=== PATIENT | male | born 1970 | race Caucasian/White ===

== ENCOUNTER 2023-07-28 10:27 | Outpatient (OUT) | payer MEDICARE, MEDICAID, SELFPAY ==
--- NOTE | 2023-07-28 10:59 | XR_ITS ---
The [address] [address] Patient Name: ERIC GUILLORY MRN: [id number] date: 1970 Sex: M Assigned Patient Location: LAB Current Patient Location: LAB Accession/Order Number: [id number] Exam Date: 07/28/2023 11:15 Report Date: 07/28/2023 12:14 At the request of: GIULIA COREY Procedure: XR cervical spine 2-3V EXAMINATION: XR cervical spine 2-3V, XR lumbar spine 2-3V, XR thoracic spine 2V HISTORY: Scoliosis M41.20, Cervical Spondylosis M47.812 COMPARISON: No relevant comparison available. FINDINGS: BONES: Cervical spine demonstrates marked left convex curvature and mild reversal of normal lordotic curvature. Suspect degenerative changes versus osseous bridging of the facet joints at most levels. No appreciable fracture or spondylolisthesis Thoracic spine demonstrates moderate left convex curvature and exaggerated kyphosis. No appreciable fracture or spondylolisthesis. Lumbar spine demonstrates mild curvature at the thoracolumbar junction. Straightening of the normal lordotic curvature, and multilevel marked degenerative facet arthropathy. Bone encroachment on the L4-5 and L5-S1 neural foramen. DISC SPACES: Calcification of the interspinous ligaments throughout. Cervical spine multilevel mild disc space narrowing. Thoracic spine multilevel mild disc space narrowing. Lumbar spine and multilevel mild-moderate disc space narrowing. PARASPINOUS: No paraspinous abnormality is seen. OTHER: Negative. XR/XR cervical spine 2-3V IMPRESSION: 1. Limited examination due to patient needing to be imaged in the standing position. 2. Multilevel scoliotic curvature of the cervical and thoracic spine. 3. Thoracic kyphosis. 4. Findings favor diffuse ankylosing spondylitis throughout the cervical, thoracic, lumbar spine. 5. Multilevel mild degenerative disc disease. 6. Marked degenerative facet arthropathy of lumbar spine. Electronically authenticated by: CEDRICK MAHMOOD Date: 07/28/2023 12:14
--- NOTE | 2023-07-28 10:59 | XR_ITS ---
The [address] [address] Patient Name: ERIC GUILLORY MRN: [id number] date: 1970 Sex: M Assigned Patient Location: LAB Current Patient Location: LAB Accession/Order Number: [id number] Exam Date: 07/28/2023 11:15 Report Date: 07/28/2023 12:14 At the request of: GIULIA COREY Procedure: XR thoracic spine 2V EXAMINATION: XR cervical spine 2-3V, XR lumbar spine 2-3V, XR thoracic spine 2V HISTORY: Scoliosis M41.20, Cervical Spondylosis M47.812 COMPARISON: No relevant comparison available. FINDINGS: BONES: Cervical spine demonstrates marked left convex curvature and mild reversal of normal lordotic curvature. Suspect degenerative changes versus osseous bridging of the facet joints at most levels. No appreciable fracture or spondylolisthesis Thoracic spine demonstrates moderate left convex curvature and exaggerated kyphosis. No appreciable fracture or spondylolisthesis. Lumbar spine demonstrates mild curvature at the thoracolumbar junction. Straightening of the normal lordotic curvature, and multilevel marked degenerative facet arthropathy. Bone encroachment on the L4-5 and L5-S1 neural foramen. DISC SPACES: Calcification of the interspinous ligaments throughout. Cervical spine multilevel mild disc space narrowing. Thoracic spine multilevel mild disc space narrowing. Lumbar spine and multilevel mild-moderate disc space narrowing. PARASPINOUS: No paraspinous abnormality is seen. OTHER: Negative. XR/XR thoracic spine 2V IMPRESSION: 1. Limited examination due to patient needing to be imaged in the standing position. 2. Multilevel scoliotic curvature of the cervical and thoracic spine. 3. Thoracic kyphosis. 4. Findings favor diffuse ankylosing spondylitis throughout the cervical, thoracic, lumbar spine. 5. Multilevel mild degenerative disc disease. 6. Marked degenerative facet arthropathy of lumbar spine. Electronically authenticated by: CEDRICK MAHMOOD Date: 07/28/2023 12:14
--- NOTE | 2023-07-28 10:59 | XR_ITS ---
The [address] [address] Patient Name: ERIC GUILLORY MRN: [id number] date: 1970 Sex: M Assigned Patient Location: LAB Current Patient Location: LAB Accession/Order Number: [id number] Exam Date: 07/28/2023 11:15 Report Date: 07/28/2023 12:14 At the request of: GIULIA COREY Procedure: XR lumbar spine 2-3V EXAMINATION: XR cervical spine 2-3V, XR lumbar spine 2-3V, XR thoracic spine 2V HISTORY: Scoliosis M41.20, Cervical Spondylosis M47.812 COMPARISON: No relevant comparison available. FINDINGS: BONES: Cervical spine demonstrates marked left convex curvature and mild reversal of normal lordotic curvature. Suspect degenerative changes versus osseous bridging of the facet joints at most levels. No appreciable fracture or spondylolisthesis Thoracic spine demonstrates moderate left convex curvature and exaggerated kyphosis. No appreciable fracture or spondylolisthesis. Lumbar spine demonstrates mild curvature at the thoracolumbar junction. Straightening of the normal lordotic curvature, and multilevel marked degenerative facet arthropathy. Bone encroachment on the L4-5 and L5-S1 neural foramen. DISC SPACES: Calcification of the interspinous ligaments throughout. Cervical spine multilevel mild disc space narrowing. Thoracic spine multilevel mild disc space narrowing. Lumbar spine and multilevel mild-moderate disc space narrowing. PARASPINOUS: No paraspinous abnormality is seen. OTHER: Negative. XR/XR lumbar spine 2-3V IMPRESSION: 1. Limited examination due to patient needing to be imaged in the standing position. 2. Multilevel scoliotic curvature of the cervical and thoracic spine. 3. Thoracic kyphosis. 4. Findings favor diffuse ankylosing spondylitis throughout the cervical, thoracic, lumbar spine. 5. Multilevel mild degenerative disc disease. 6. Marked degenerative facet arthropathy of lumbar spine. Electronically authenticated by: CEDRICK MAHMOOD Date: 07/28/2023 12:14
[2023-07-28 11:31] LABS: Estimated Average Glucose 212 mg/dL
== END 2023-07-28 10:28 | disposition home or self-care (01) ==
PROVIDERS: PCP Internal Medicine; Visit Provider Internal Medicine
DX: E11.65 Type 2 diabetes mellitus with hyperglycemia (principal); M41.20 Other idiopathic scoliosis, site unspecified; M47.812 Spondylosis without myelopathy or radiculopathy, cervical region; M47.816 Spondylosis without myelopathy or radiculopathy, lumbar region; M43.9 Deforming dorsopathy, unspecified; M51.36 Other intervertebral disc degeneration, lumbar region; M50.30 Other cervical disc degeneration, unspecified cervical region; M51.34 Other intervertebral disc degeneration, thoracic region
CPT/HCPCS: 36415; 72040; 72070; 72100; 83036

== ENCOUNTER 2023-12-31 17:36 | Emergency (ER) | payer MEDICARE, MEDICAID, SELFPAY ==
[2023-12-31] VITALS (16 sets, daily range): BP systolic 99–139; BP diastolic 71–96; PULSE 85–119; RESP 19–34; TEMP 36.7–37.5; O2SAT 87–97; BMI 43.3
--- NOTE | 2023-12-31 17:40 | XR_ITS ---
The [address] [address] Patient Name: ERIC GUILLORY MRN: [id number] date: 1970 Sex: M Assigned Patient Location: ER Current Patient Location: ER Accession/Order Number: [id number] Exam Date: 12/31/2023 17:58 Report Date: 12/31/2023 18:13 At the request of: SB GIBSON Procedure: XR chest 1V EXAM: XR chest 1V HISTORY: Shortness of breath. COMPARISON: Chest radiograph dated 10/28/2019. TECHNIQUE: 2 AP erect portable views of the chest performed. FINDINGS: The mandible obscures the thoracic inlet. Stable mild prominence/magnification of the cardiomediastinal silhouette. There are low lung volumes. There is no consolidation, infiltrate, pleural effusion or pulmonary vascular congestion. There is no pneumothorax. The bony structures are osteopenic. No acute osseous abnormality is identified. XR/XR chest 1V IMPRESSION: There is no acute cardiopulmonary process. Electronically authenticated by: LUIS FELIPE TAYLOR Date: 12/31/2023 18:13
--- NOTE | 2023-12-31 17:40 | ECG_ITS ---
The [facility] Test Date: 2023-12-31 Pat Name: ERIC GUILLORY Department: Room: - Gender: Male [employer] Operator: : 1970 Requested By: [id number] Order Number: [id number] Reading MD: GIULIA COREY Measurements Intervals [place] Rate: 112 P: 10 NC: 188 QRS: 171 QRSD: 82 T: -30 QT: 296 QTc: 363 Interpretive Statements 1120 Sinus tachycardia 3234 Anteroseptal myocardial infarction, age undetermined 5120 Possible right ventricular hypertrophy 9150 abnormal ECG Electronically Signed On 01-02-2024 7:31:24 EST by GIULIA COREY
[2023-12-31] MEDS: DEXTROSE 50 %-WATER 25 GM/50 ML SYRINGE IV (17:45)
[2023-12-31 17:53] LABS: Glucometer 107 mg/dL (74-106)
[2023-12-31 18:02] LABS: PCO2 VBG 44.7 mmHg (40.0-52.0); pH VBG 7.436 (7.330-7.430)
[2023-12-31 18:03] LABS: Basophils Percent Auto 0.3 % (0.2-2.0); Eosinophils Absolute Auto 0.1 10^3/uL (0.0-0.7); Eosinophils Percent Auto 0.7 % (0.9-7.0); Hematocrit 44.9 % (42.0-54.0); Hemoglobin 13.5 g/dL (14.0-18.0); Immature Granulocytes Abs Auto 0.03 10^3/uL (0.00-0.03); Immature Granulocytes Pct Auto 0.3 % (0.0-0.5); Lymphocytes Absolute Auto 1.4 10^3/uL (1.2-3.8); Lymphocytes Percent Auto 15.2 % (20.5-60.0); Mean Corpuscular HGB Conc 30.1 g/dL (29.9-35.2); Mean Corpuscular Hemoglobin 24.1 pg (25.9-34.0); Mean Corpuscular Volume 80.2 fL (80.0-94.0); Mean Platelet Volume 10.8 fL (9.5-13.5); Monocytes Absolute Auto 1.4 10^3/uL (0.3-0.8); Neutrophils Absolute Auto 6.1 10^3/uL (1.4-6.5); Neutrophils Percent Auto 67.5 % (43.0-75.0); Platelet Count 273 10^3/uL (150-450); Red Cell Distribution Width 15.6 % (11.0-15.0)
--- NOTE | 2023-12-31 18:14 | ED.GENADUL1 ---
HPI - General Adult General Chief complaint: Shortness of Breath/Dyspnea Stated complaint: Shortness of Breath Time Seen by Provider: 12/31/23 17:39 Source: patient Mode of arrival: ambulance History of Present Illness HPI narrative: Patient is a 53-year-old male who is presenting to the ER today with chief complaint of shortness of breath, lower extremity swelling, low blood sugars and not feeling well. Patient lives at home by himself. Patient typically walks around at home with his 2 feet. Patient has very edematous bilateral lower extremities and lower abdominal pannus. Patient takes metformin and glimepiride; patient did take both of those medications this morning. Patient ate 1 piece of pizza for lunch around 1:00. Patient's PCP is Dr. Avery. Dr. Avery manages patient's medications. Patient's oxygen was low when initially arrived, he was placed on 2 L of nasal cannula. Patient states he has no history of congestive heart failure, he has no cardiac history. Patient says he has no heart murmur that he knows of. Patient states his lower extremities have been gaining water fluid in the last 6 to 7 days. He has been feeling weak the last 2 to 3 days. Patient has not been feeling good the last 2 or 3 days, has not been taking medication as recommended, mild nausea. Patient also has not been able to get up and go to the restroom, has been urinating himself secondary to generalized weakness. Patient's brother came over to see him, stated he was not looking good, and called 911 to bring patient in to the ER for evaluation. All systems are negative except as noted/marked. All systems reviewed and otherwise negative. Nurses note and vital signs reviewed and patient is hypoxic at 87%, patient was placed on 2 L nasal cannula. Patient has increased respiratory rate as well, slightly anxious. General: The patient appears well and in no apparent distress. Patient is resting uncomfortably on cart. Patient is not toxic, lethargic, or listless. Patient's blood sugars reading low when he initially arrived, but he is alert and orient x 3, not clammy, not confused, not disoriented, slightly shaky. Skin: Warm, dry, no pallor noted. There is no rash noted. No petechiae, purpura. Head: Normocephalic, atraumatic Eye: Normal conjunctiva, no drainage, EOMI. PERRL Ears, Nose, Mouth, and Throat: oral mucosa is moist. Nares patent. Mouth without vesicles. Cardiovascular: Regular Rate and Rhythm, mild holosystolic murmur, gallop, rub Respiratory: Patient is in no distress, patient has increased respiratory rate; equal breath sounds bilateral, no accessory muscle use, lungs are clear to auscultation, no wheezing, rales or rhonchi, Back: non-tender, no CVA tenderness bilaterally to percussion. No CT LS midline pain GI: Patient is morbidly obese, patient has 2-3+ pitting edema to his lower pannus, no redness, or cellulitis. No tenderness to palpation, no masses appreciated. No rebound, guarding, or rigidity noted. No distention Musculoskeletal: Patient has full range of motion of all of the extremities, no motor, sensory, or focal neurological deficits. Patient has 4+ pitting edema to bilateral lower extremities, patient has mild redness to the anterior lower shins, venous stasis noted. No cellulitis. Patient does have small venous ulcerations forming to the right anterior joe. Neurological: A&O x4, normal speech Psychiatric: Cooperative Related Data Home Medications Medication Instructions Recorded Confirmed fenofibrate micronized 200 mg 200 mg PO DAILY 12/31/23 12/31/23 capsule glimepiride 4 mg tablet 6 mg PO DAILY 12/31/23 12/31/23 ipratropium bromide 42 mcg (0.06 2 spray intranasal TID PRN allergy 12/31/23 12/31/23 %) nasal spray symptoms lisinopril 20 mg tablet 20 mg PO DAILY 12/31/23 12/31/23 metformin 1,000 mg tablet 1,000 mg PO BID 12/31/23 12/31/23 nabumetone 750 mg tablet 750 mg PO BID 12/31/23 12/31/23 tizanidine 2 mg tablet 6 mg PO DAILY 12/31/23 12/31/23 tizanidine 4 mg tablet 6 mg PO DAILY 12/31/23 12/31/23 Allergies Allergy/AdvReac Type Severity Reaction Status Date / Time No Known Drug Allergies Allergy Verified 12/31/23 17:42 Exam Constitutional Vital Signs, click to edit/add: Last Vital Signs Temp 98.0 F 12/31/23 17:42 Pulse 102 H 12/31/23 19:26 Resp 24 12/31/23 19:26 BP 109/89 12/31/23 19:26 Pulse Ox 94 L 12/31/23 19:26 O2 Del Method Nasal Cannula 12/31/23 19:26 O2 Flow Rate 3 12/31/23 18:00 Course Vital Signs Vital signs: Vital Signs Blood Pressure 139/96 H 12/31/23 17:40 Temperature 98.0 F 12/31/23 17:42 Pulse Rate 102 H 12/31/23 19:26 Respiratory Rate 24 12/31/23 19:26 Blood Pressure 109/89 12/31/23 19:26 Pulse Oximetry 94 L 12/31/23 19:26 Oxygen Delivery Method Nasal Cannula 12/31/23 19:26 Oxygen Delivery Flow Rate 3 12/31/23 18:00 Medical Decision Making MDM Narrative Medical decision making narrative: Patient had EKG, IV, lab work done. Patient was given 20 mg of IV Lasix. Patient was started on a D5 drip secondary to hypoglycemia and patient had 2 oral diabetic medications this morning. Patient's blood sugar check approximately 6:50 PM was in the 90s. Patient had 2 orange juices and has been eating dinner as well. Patient's lab work showed a troponin of 79, BNP greater than 2000, patient also has elevated LFTs as well. Patient has no abdominal pain, nausea or vomiting. Patient does have pitting edema to his lower pannus and lower extremities. 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 A 2nd troponin will be ordered at 7:30 PM. 1909 patient has been transition to Dr. Garcia. He will evaluate the rest of patient's lab work, continue to watch patient's blood sugar checks, also a CTA of the chest has been added on as well to rule out PE. Critical care time 31 minutes exclusive from separate billable procedures that were performed. The following was considered in the determination of critical care but not limited to the level of medical decision making, intensive cardiac and/or respiratory monitoring, frequent vital sign monitoring, evaluation of laboratory studies, evaluation of radiographic studies, oxygen monitoring, and constant monitoring and speaking to family at bedside Lab Data Lab results reviewed: Yes I reviewed the patient's lab results Labs: Lab Results 02/23/24 02/23/24 02/23/24 Range/Units 17:51 17:54 18:42 WBC 9.0 (4.0-11.0) 10^3/uL RBC 5.60 (4.70-6.10) 10^6/uL Hgb 13.5 L (14.0-18.0) g/dL Hct 44.9 (42.0-54.0) % MCV 80.2 (80.0-94.0) fL MCH 24.1 L (25.9-34.0) pg MCHC 30.1 (29.9-35.2) g/dL RDW 15.6 H (11.0-15.0) % Plt Count 273 (150-450) 10^3/uL MPV 10.8 (9.5-13.5) fL Neut % (Auto) 67.5 (43.0-75.0) % Lymph % (Auto) 15.2 L (20.5-60.0) % [place] % (Auto) 16.0 H (1.7-12.0) % Eos % (Auto) 0.7 L (0.9-7.0) % Baso % (Auto) 0.3 (0.2-2.0) % Neut # (Auto) 6.1 (1.4-6.5) 10^3/uL Lymph # (Auto) 1.4 (1.2-3.8) 10^3/uL [place] # (Auto) 1.4 H (0.3-0.8) 10^3/uL Eos # (Auto) 0.1 (0.0-0.7) 10^3/uL Baso # (Auto) 0.0 (0.0-0.1) 10^3/uL Abs Immat Gran (auto) 0.03 (0.00-0.03) 10^3/uL Imm/Tot Granulo (auto) 0.3 (0.0-0.5) % PT 17.2 H (9.0-11.6) sec INR 1.67 VBG pH 7.436 H (7.330-7.430) VBG pCO2 44.7 (40.0-52.0) mmHg Sodium 137 (136-145) mmol/L Potassium 3.5 (3.5-5.1) mmol/L Chloride 97 L (98-107) mmol/L Carbon Dioxide 31.0 (21.0-32.0) mmol/L Anion Gap 12.5 BUN 24.0 H (7.0-18.0) mg/dL Creatinine 0.93 (0.70-1.30) mg/dL Est GFR ( Amer) >60 (>=60) Est GFR (Non-Af Amer) >60 (>=60) BUN/Creatinine Ratio 25.8 Glucose 26 L* (74-106) mg/dL Calcium 8.5 (8.5-10.1) mg/dL Total Bilirubin 3.0 H (0.2-1.0) mg/dL AST 271 H (15-37) U/L ALT 283 H (16-63) U/L Alkaline Phosphatase 60 (46-116) U/L Troponin I High Sens 79.4 H* (4.0-76.1) pg/mL NT-Pro-B Natriuret Pep 2203.0 H* (<=900.0) pg/mL Total Protein 8.1 (6.4-8.2) g/dL Albumin 2.8 L (3.4-5.0) g/dL Globulin 5.3 g/dL Albumin/Globulin Ratio 0.5 POC Glucose 107 H 98 (74-106) mg/dL ECG Data Attestation: I personally reviewed and interpreted this ECG as follows: (EKG interpretation. Sinus tachycardia at 112. Normal axis deviation. No acute ST elevation, no acute ectopy. QTc of 363.) Discharge Plan Discharge Patient Disposition: Still a Patient
[2023-12-31 18:16] LABS: INR 1.67; Prothrombin Time 17.2 sec (9.0-11.6)
[2023-12-31] MEDS: DEXTROSE 5%-0.9% NACL 1,000 ML 1,000 ML 50 ML IV (18:22)
[2023-12-31] MEDS: FUROSEMIDE 20 MG/2 ML VIAL IVP (18:23)
[2023-12-31 18:25] LABS: Alanine Aminotransferase 283 U/L (16-63); Albumin Globulin Ratio 0.5; Albumin Level 2.8 g/dL (3.4-5.0); Alkaline Phosphatase 60 U/L (46-116); Anion Gap 12.5; Aspartate Amino Transferase 271 U/L (15-37); BUN Creatinine Ratio 25.8; Calcium 8.5 mg/dL (8.5-10.1); Chloride 97 mmol/L (98-107); Estimated GFR (African America >60 (>=60); Estimated GFR (Non-African Ame >60 (>=60); Globulin 5.3 g/dL; Potassium 3.5 mmol/L (3.5-5.1); Sodium 137 mmol/L (136-145); Total Protein 8.1 g/dL (6.4-8.2)
[2023-12-31 18:39] LABS: Troponin I High Sensitivity 79.4 pg/mL (4.0-76.1)
[2023-12-31 18:40] LABS: Glucose 26 mg/dL (74-106)
[2023-12-31 18:44] LABS: Glucometer 98 mg/dL (74-106)
--- NOTE | 2023-12-31 19:02 | PC.NURSE ---
pt arrived to er per ems from home for shortness of breath. pt O2 SAT 87% on RA. O2 initiated at 3L per NC Sat up to 94%
--- NOTE | 2023-12-31 19:07 | CT_ITS ---
The [address] [address] Patient Name: ERIC GUILLORY MRN: [id number] date: 1970 Sex: M Assigned Patient Location: ER Current Patient Location: Accession/Order Number: [id number] Exam Date: 12/31/2023 09:45 Report Date: 12/31/2023 20:49 At the request of: SB GIBSON Procedure: CT angio chest CTA OF THE CHEST WITH CONTRAST: 12/31/2023 9:45 AM EST HISTORY: TECHNIQUE: Initially, thin section noncontrast images through portions of the chest were obtained for the purpose of establishing proper bolus timing of contrast. Subsequently, thin section axial CT images were obtained through the chest after intravenous administration of Omnipaque 350, 100 mL IV. To optimally assess the thoracic vasculature, the original axial data was used to create 3D volume rendered, multiplanar reformatted and/or maximum intensity projection images in various planes. This CT exam was performed using one or more of the following dose reduction techniques: Automated exposure control, adjustment of the mA and/or kV according to patient size, or use of iterative reconstruction technique. Thin section coronal and sagittal images were reconstructed from the axial data set. All images were reviewed and interpreted. COMPARISON: None. FINDINGS: Bolus opacification of the pulmonary arteries was adequate for purposes of diagnosis. There is extensive acute bilateral PTE. More extensive on the right with acute thromboembolism beginning in the distal right pulmonary outflow tract with contiguous extension throughout right middle lobe segmental and subsegmental branches of the medial segment and lateral segment and throughout the right upper lobe anterior and apical segmental and subsegmental branches as well as involving right lower lobe with appears to be extensive occlusive thrombus in multiple segmental and subsegmental right lower lobe branches. There is acute PE within the distal left pulmonary artery outflow tract at branch point of the lingula and extending to the left upper lobe involving segmental and central branches. There is some acute segmental and subsegmental PE throughout multiple left basilar lung segments. No central or saddle embolus. There does appear to be a component of acute right heart strain with marked enlargement of the right ventricle relative to left. Ratio is at least 1.6. Patient may be candidate for thrombectomy. Mild enlargement of cardiac chambers particularly on the right. No pericardial effusion. There is some mild vascular congestion. Small dependent bilateral pleural effusions atelectasis. Lungs otherwise clear and expanded without mass or infiltrate or. No pneumothorax. Normal caliber thoracic aorta and normal appearance. There are aortic arch pattern is normal. No hilar or mediastinal lymphadenopathy. There is some trace ascites in the upper abdomen around liver and spleen. There is backwash of contrast in the intrahepatic IVC consistent with acute right heart strain. No osseous abnormality. CT/CT angio chest IMPRESSION: Extensive bilateral acute thromboembolism is present. More extensive on the right. This involves multiple right central as well as segmental and subsegmental branches throughout right upper lobe, right middle lobe and right lower lobe and involving left lung is well including lingula, left upper lobe and left lower lobe branches. Associated findings of acute right heart strain as discussed above. Patient may be candidate for thrombectomy. Critical value was reported to Physician: Adolfo Garcia by Dr. Balbir Bashir on 12/31/2023 8:47 PM EST. Electronically authenticated by: BALBIR BASHIR Date: 12/31/2023 20:49
[2023-12-31 19:53] LABS: Troponin I High Sensitivity 74.7 pg/mL (4.0-76.1)
[2023-12-31 20:38] LABS: Glucometer 107 mg/dL (74-106)
[2023-12-31 21:19] LABS: Partial Thromboplastin Time 33.3 sec (22.3-36.2)
[2023-12-31] MEDS: HEPARIN SODIUM (PORCINE) 5,000 UNIT/ML VIAL 6700 UNIT IV (21:48)
[2023-12-31] MEDS: HEPARIN SODIUM,PORCINE/D5W 25,000 UNIT/500 ML IV.SOLN 30.24 UNIT IV (21:49)
== END 2023-12-31 23:00 | disposition short-term general hospital (02) ==
PROVIDERS: Emergency Medicine; Emergency Provider Emergency Medicine; PCP Internal Medicine
DX: I26.99 Other pulmonary embolism without acute cor pulmonale (principal); I51.89 Other ill-defined heart diseases; R09.02 Hypoxemia; E16.2 Hypoglycemia, unspecified; R79.89 Other specified abnormal findings of blood chemistry; Z79.84 Long term (current) use of oral hypoglycemic drugs; R53.1 Weakness; E66.01 Morbid (severe) obesity due to excess calories; R60.0 Localized edema; Z68.41 Body mass index [BMI] 40.0-44.9, adult
CPT/HCPCS: 36415; 51702; 71045; 71275; 80053; 82800; 82948; 83880; 84484; 85025; 85610; 85730; 93005; 96374; 96375; 99285; J1644; J1940; Q9967

== ENCOUNTER 2024-03-15 19:44 | Outpatient (OUT) | payer MEDICARE, MEDICAID, SELFPAY ==
--- OUTSIDE RECORDS SUMMARY | 2024-03-15 19:49 | XMS_ITS | CCD ---
Author Organization [facility] Care Team Providers Care Cook Morning Name Role Phone Semaj Avery Unavailable BENNIE, DR PLATT Primary Care Unavailable BALL, DR PLATT Consulting Unavailable BALL, DR PLATT Attending Unavailable BALL, DR PLATT Admitting Unavailable BALL, DR PLATT Consulting Unavailable BENNIE, DR PLATT Attending Unavailable BENNIE, DR PLATT Admitting Unavailable BENNIE, DR PLATT Primary Care Unavailable Martinez, Edi Attending Unavailable Martinez, Edi Admitting Unavailable Bennie, Semaj Primary Care Unavailable BENNIE, SEMAJ Primary Care Unavailable TETE GUIDO Attending Unavailable JANNET NUNN Admitting Unavailable DELGADO GUIDO Consulting Unavailabl JANNET Edge Consulting Unavailable NURASHAHRIAR S Consulting Unavailable DELGADO GUIDO Attending Unavailabl e DELGADO GUIDO Referring UnavailSEMAJ Richards Primary Care Unavailable RODRICK THOMAS Attending Unavailable RODRICK THOMAS Attending Unavailable Medications Current Medications Medication Drug Class(es) Dates Sig (Normalized) Sig (Original) fenofibrate 200 mg oral capsule (8 sources) Peroxisome Proliferator Receptor alpha Agonist Start: 02-04-2023 take 1 capsule by mouth once daily Fenofibrate 200 MG 1 capsule Orally Once a day w/ food for 30 days Jan, Active glimepiride 4 mg oral tablet (10 sources) Sulfonylurea Glimepiride 4 MG 1 1/2 tab taken 30 minutes prior to first meal Orally Once a day Active Glimepiride 4 MG 1 tablet Orally Once a day, taken 30 minutes prior to bkfst for 30 days Active take 1 tablet by angelika th every twenty-four hours Glimepiride 2 MG 1 tablet with breakfast or the first main meal of the day Orally Once a day Active ipratropium bromide 0.042 mg/actuat metered dose nasal spray (10 sources) Anticholinergic Ipratropium Brom shantel 0.06 % USE 2 SPRAYS IN EACH NOSTRIL 2-3 TIMES A DAY NEEDED for 90 Active Ipratropium Brom shantel 0.06 % USE 2 SPRAYS IN EACH NOSTRIL 2-3 TIMES A DAY NEEDED for 90 Active take 2 spray(s) nasa l route three times daily as needed Ipratropium [place] 0.06 % 2 sprays in e ach nostril Nasally Three times a day as needed Active lisinopril 20 mg oral tablet (10 sources) Angiotensin Converting Enzyme Inhibitor Lisinopril 20 MG PRIMO E 1 TABLET BY MOUTH EVERY DAY Orally Once a day for 30 days Active take 1 tablet by mouth once [place] Lisinopril 10 MG TAKE 1 TABLET BY MOUTH EVERY DAY Active metFORMIN hydrochloride 1000 mg oral tablet (10 sources) Biguanide metFORMIN HCl 10 00 MG TAKE 1 TABLET BEFORE BREAKFAST AND EVENING MEAL Active nabumetone 750 mg oral tablet (1 source) Nonsteroidal Anti-inflammatory Drug take 1 tablet by mouth every twelve hours Nabumetone 750 MG 1 tablet Orally Twice a day Active OneTouch Verio - (10 sources) OneTouch Verio - USE TO TEST HOME BLOOD SUGAR ONCE DAILY In Vitro qd for 30 days Active OneTouch Verio - USE TO TEST HOME BLOOD SUGAR ONCE DAILY for 30 Active tiZANidine 4 mg oral tablet (10 sources) Central alpha-2 Adrenergic Agonist Start: 11-09-2023 tiZANidine HCl 4 MG 1 1/2 tablet Orally q HS for 30 days Nov, Active take 1 capsule by [facility] once at bedtime as needed tiZANidine HCl 6 MG 1 capsule as needed Orally q HS for 90 days Active traMADol hydrochloride 50 mg oral tablet (1 source) Opioid Agonist take 1 tablet by mouth twice daily as needed traMADol HCl 50 MG 1 tablet as needed Orally twice daily Active Completed/Discontinued Medications Medication Drug Class(es) Dates Sig (Normalized) Sig (Original) polyethylene glycol 3350 13364 mg powder for oral solution (9 sources) Osmotic Laxative Polyethylene Gl ycol 3350 17 GM/SCOOP USE DIRECTED TWICE A DAY for 30 Not-Taking/PRN Polyethylene Glycol 3350 17 GM/SCOOP (1 source) Polyethylene Gly col 3350 17 GM/SCOOP USE DIRECTED TWICE A DAY for 30 Not-Taking Problems Problem Classification Problem Date Documented Da te Episodic/Chronic Diabetes mellitus with complications (20 sources) Type 2 diabetes mellitus; Translations: [Type 2 diabetes mellitus with hyperglycemia] Onset: 02-03-2023 Chronic Disorders of lipid metabolism (20 sources) Hypercholesterolemia ; Translations: [Pure hypercholesterolemia , unspecified] Onset: 02-05-2023 Chronic Essential hypertension (14 sources) Essential hypertension; Translations: [Essential (primary) hypertension] Onset: 02-05-2023 Chronic Other aftercare (3 sources) Other skilled nursing (current) drug therapy; Translations: [OTH [facility] CURRENT DRUG THERAPY] Onset: 02-05-2023 Episodic Other and ill-defined heart disease (1 source) Cardiomegaly; Translations: [Cardiomegaly] Onset: 01-01-2024 Chronic Other bone disease and musculoskeletal deformities (10 sources) Idiopathic kyphoscoliosis; Translations: [Other idiopathic scoliosis, site unspecified] Chronic Other bone disease and musculoskeletal deformities (3 sources) Other idiopathic scoliosis, site unspecified Chronic Other connective tissue disease (3 sources) Other muscle spasm Episodic Other screening for suspected conditions (not mental disorders or infectious disease) (3 sources) Encounter for screening for malignant neoplasm of prostate; Translations: [ENC SCREEN MALIG NEOPLASM PROSTATE] Onset: 02-05-2023 Episodic Pulmonary heart disease (1 source) Other pulmonary embolism with acute cor pulmonale; Translations: [Other pulmonary embolism with acute cor pulmonale] Onset: 01-04-2024 Chronic Pulmonary heart disease (1 source) Other pulmonary embolism without acute cor pulmonale; Translations: [Other pulmonary embolism without acute cor pulmonale] Onset: 01-01-2024 Episodic Rheumatoid arthritis and related disease (9 sources) Ankylosing spondylitis; Translations: [Ankylosing spondylitis of thoracolumbar region] Chronic Spondylosis; intervertebral disc disorders; other back problems (20 sources) Cervical spondylosis; Translations: [Spondylosis without myelopathy or radiculopathy, cervical region] Chronic Unclassified (1 source) Low back pain, unspecified; Translations: [Low back pain, unspecified] Onset: 08-09-2023 Results Test Name Value Interpretation Reference Range Facility Basic Metab w/rfx MGon Anion gap [Moles/Vol] 8 mmol/L Low 9-17 [facility] Comment on above: Performed By: #### B MPX, CDP ####[address] [address] Lab Director: Rafa Prieto MD Calcium [Mass/Vol] 7.9 mg/dL Low 8.6-10.4 [facility] Comment on above: Performed By: #### B MPX, CDP ####[address] [phone] Director: Rafa Prieto MD Chloride [Moles/Vol] 97 mmol/L Low 98-107 [facility] Comment on above: Performed By: #### B MPX, CDP ####[address] [phone] Director: Rafa Prieto MD CO2 [Moles/Vol] 25 mmol/L Normal 20-31 [facility] Comment on above: Performed By: #### B MPX, CDP ####[address] [phone] Director: Rafa Prieto MD Creatinine [Mass/Vol] 0.6 mg/dL Low 0.7-1.2 [facility] Comment on above: Performed By: #### B MPX, CDP ####[address] [phone] Director: Rafa Prieto MD GFR/1.73 sq M.predicted among non-blacks MDRD (S/P/Bld) [Vol rate/Area] mL/min/{1.73_m2} Normal >60 [facility] Comment on above: Result Comment: These results are not intended for use in patients <18 years of age. eGFR results are calculated without a race factor using the 2020 CKD-EPI equation. Careful clinical correlation is recommended, particularly when comparing to results calculated using previous equations. The CKD-EPI equation is less accurate in patients with extremes of muscle mass, extra-renal metabolism of creatine, excessive creatine ingestion, or following therapy that affects renal tubular secretion. Performed By: #### B MPX, CDP ####[address], [place] [phone] Director: Rafa Prieto MD Glucose [Mass/Vol] 122 mg/dL High 70-99 [facility] Comment on above: Performed By: #### B MPX, CDP ####[facility] [address] [place], [place] [phone] Director: Rafa Prieto MD Potassium [Moles/Vol] 3.9 mmol/L Normal 3.7-5.3 [facility] Comment on above: Performed By: #### B MPX, CDP ####[facility] [address] [place], [place] [address])[phone] Director: Rafa Prieto MD Sodium [Moles/Vol] 130 mmol/L Low 135-144 [facility] Comment on above: Performed By: #### B MPX, CDP ####[facility] [address] [place] [address])[phone] Director: Rafa Prieto MD Urea nitrogen [Mass/Vol] 10 mg/dL Normal 6-20 [facility] Comment on above: Performed By: #### B MPX, CDP ####[facility] [address] [place] [address] [phone] Director: Rafa Prieto MD CBC with Diffon 01-06-2024 Abs. Basophil 0.04 k/uL Normal 0.00-0.20 [facility] Comment on above: Performed By: #### H EPXA, PTT #### [facility] [address] [place] [address] Switchboard Wirer: Rafa Prieto MD Abs.Imm.Granulocyte 0.03 k/uL Normal 0.00-0.30 [facility] Comment on above: Performed By: #### H EPXA, PTT #### [facility] [employer] [address] [place] [address] Switchboard Wirer: Rafa Prieto MD Abs.Neutrophil (Seg) 5.00 k/uL Normal 1.50-8.10 [facility] Comment on above: Performed By: #### H EPXA, PTT #### [facility] [employer] [address] [place] [address] [employer] Wirer: Rafa Prieto MD Basophils/100 WBC (Bld) 1 % Normal 0-2 [facility] Comment on above: Performed By: #### H EPXA, PTT #### [facility] [employer] [address] [place] [address] [employer] Wirer: Rafa Prieto MD Eosinophils (Bld) [#/Vol] 0.38 10*3/uL Normal 0.00-0.44 [facility] Comment on above: Performed By: #### H EPXA, PTT #### [address] [address] Switchboard Wirer: Rafa Prieto MD Eosinophils/100 WBC (Bld) 5 % High 1-4 [facility] Comment on above: Performed By: #### H EPXA, PTT #### [facility] [employer] [address] [place] [address] [employer] Wirer: Rafa Prieto MD Erythrocyte distribution width (RBC) [Ratio] 16.5 % High 11.8-14.4 [facility] Comment on above: Performed By: #### H EPXA, PTT #### [facility] [employer] [address] [place] [address] [employer] Wirer: Rafa Prieto MD Hematocrit (Bld) [Volume fraction] 37.0 % Low 40.7-50.3 [facility] Comment on above: Performed By: #### H EPXA, PTT #### [facility] [employer] [address] [place] [address] [employer]r: Rafa Prieto MD Hemoglobin (Bld) [Mass/Vol] 10.7 g/dL Low 13.0-17.0 [facility] Comment on above: Performed By: #### H EPXA, PTT #### [address] [address] Switchboard Wirer: Rafa Prieto MD Immature granulocytes/100 WBC (Bld) 0 % Normal 0 [facility] Comment on above: Performed By: #### H EPXA, PTT #### [address] [address] [employer]r: Rafa Prieto MD Lymphocytes (Bld) [#/Vol] 1.55 10*3/uL Normal 1.10-3.70 [facility] Comment on above: Performed By: #### H EPXA, PTT #### [facility] [employer] [address] [place] [address] [employer]r: Rafa Prieto MD Lymphocytes/100 WBC (Bld) 19 % Low 24-43 [facility] Comment on above: Performed By: #### H EPXA, PTT #### [address] [address] Switchboard Wirer: Rafa Prieto MD MCH (RBC) [Entitic mass] 24.0 pg Low 25.2-33.5 [facility] Comment on above: Performed By: #### H EPXA, PTT #### [facility] [employer] [address] [place] [address] Switchboard Wirer: Rafa Prieto MD MCHC (RBC) [Mass/Vol] 28.9 g/dL Normal 28.4-34.8 [facility] Comment on above: Performed By: #### H EPXA, PTT #### [facility] [employer] [address] [place] [address] [employer]board Wirer: Rafa Prieto MD MCV (RBC) [Entitic vol] 83.0 fL Normal 82.6-102.9 [facility] Comment on above: Performed By: #### H EPXA, PTT #### [address] [address] [employer]board Wirer: Rafa Prieto MD Monocytes (Bld) [#/Vol] 0.99 10*3/uL Normal 0.10-1.20 [facility] Comment on above: Performed By: #### H EPXA, PTT #### [address] [address] Switchboard Wirer: Rafa Prieto MD Monocytes/100 WBC (Bld) 12 % Normal 3-12 [facility] Comment on above: Performed By: #### H EPXA, PTT #### [address] [address] [employer]r: Rafa Prieto MD Neutrophil (Seg) 63 % Normal 36-65 [facility] Comment on above: Performed By: #### H EPXA, PTT #### [address] [address] [employer]board Wirer: Rafa Prieto MD NRBC Automated 0.0 per 100 WBC Normal 0.0 [facility] Comment on above: Performed By: #### H EPXA, PTT #### [address] [address] [employer]board Wirer: Rafa Prieto MD Platelet mean volume (Bld) [Entitic vol] 10.8 fL Normal 8.1-13.5 [facility] Comment on above: Performed By: #### H EPXA, PTT #### [address] [address] [employer]r: Rafa Prieto MD Platelets (Bld) [#/Vol] 204 10*3/uL Normal 138-453 [facility] Comment on above: Performed By: #### H EPXA, PTT #### [address] [address] [employer]board [employer]r: Rafa Prieto MD RBC (Bld) [#/Vol] 4.46 10*6/uL Normal 4.21-5.77 [facility] Comment on above: Performed By: #### H EPXA, PTT #### [facility] [place] [address] Switchboard Wirer: Rafa Prieto MD RBC morphology finding Nom (Bld) ANISOCYTOSIS PRESENT Normal [facility] Comment on above: Performed By: #### H EPXA, PTT #### [facility] [place] [address] Switchboard Wirer: Rafa Prieto MD WBC (Bld) [#/Vol] 8.0 10*3/uL Normal 3.5-11.3 [facility] Comment on above: Performed By: #### H EPXA, PTT #### [facility] [employer] [address] [place] [address] Switchboard Wirer: Rafa Prieto MD Cult,Urineon 01-06-2024 Cult,Urine Specimen Description .CLEAN CATCH URINE Culture NO GROWTH Report Status FINAL 01/06/2024 Normal [facility] Comment on above: Performed By: #### U RC #### [address] [address] Switchboard Wirer: Rafa Prieto MD Glucose,Whole Bloodon 2023 Glucose [Mass/Vol] 174 mg/dL High 75-110 [facility] Glucose [Mass/Vol] 192 mg/dL High 75-110 [facility] Glucose [Mass/Vol] 119 mg/dL High 75-110 [facility] Heparin Anti-Xaon 01-06-2024 Heparin Anti-Xa 0.41 IU/L Normal [facility] Comment on above: Performed By: #### H EPXA ####[facility] [address] [place] [address] Lab Director: Rafa Prieto MD Basic Metab w/rfx MGon 01-05 Anion gap [Moles/Vol] 11 mmol/L Normal 9-17 [facility] Comment on above: Performed By: #### U RC #### [address] [address] Switchboard Wirer: Rafa Prieto MD Calcium [Mass/Vol] 7.9 mg/dL Low 8.6-10.4 [facility] Comment on above: Performed By: #### U RC #### [address] [address] Switchboard Wirer: Rafa Prieto MD Chloride [Moles/Vol] 99 mmol/L Normal 98-107 [facility] Comment on above: Performed By: #### U RC #### [address] [address] Switchboard Wirer: Rafa Prieto MD CO2 [Moles/Vol] 24 mmol/L Normal 20-31 [facility] Comment on above: Performed By: #### U RC #### [address] [address] Switchboard Wirer: Rafa Prieto MD Creatinine [Mass/Vol] 0.6 mg/dL Low 0.7-1.2 [facility] Comment on above: Performed By: #### U RC #### [address] [address] Switchboard Wirer: Rafa Prieto MD GFR/1.73 sq M.predicted among non-blacks MDRD (S/P/Bld) [Vol rate/Area] mL/min/{1.73_m2} Normal >60 [facility] Comment on above: Result Comment: These results are not intended for use in patients <18 years of age. eGFR results are calculated without a race factor using the 2020 CKD-EPI equation. Careful clinical correlation is recommended, particularly when comparing to results calculated using previous equations. The CKD-EPI equation is less accurate in patients with extremes of muscle mass, extra-renal metabolism of creatine, excessive creatine ingestion, or following therapy that affects renal tubular secretion. Performed By: #### U RC #### [address] [address] Switchboard Wirer: Rafa Prieto MD Glucose [Mass/Vol] 97 mg/dL Normal 70-99 [facility] Comment on above: Performed By: #### U RC #### [address] [address] Switchboard Wirer: Rafa Prieto MD Potassium [Moles/Vol] 4.3 mmol/L Normal 3.7-5.3 [facility] Comment on above: Performed By: #### U RC #### [address] [address] Switchboard Wirer: Rafa Prieto MD Sodium [Moles/Vol] 134 mmol/L Low 135-144 [facility] Comment on above: Performed By: #### U RC #### [address] [address] Switchboard Wirer: Rafa Prieto MD Urea nitrogen [Mass/Vol] 10 mg/dL Normal 6-20 [facility] Comment on above: Performed By: #### U RC #### [address] [address] Switchboard Wirer: Rafa Prieto MD CBC with Diffon 01-05-2024 Abs. Basophil 0.00 k/uL Normal 0.0-0.2 [facility] Comment on above: Performed By: #### U RC #### [address] [address] Switchboard Wirer: Rafa Prieto MD Abs.Imm.Granulocyte 0.00 k/uL Normal 0.00-0.30 [facility] Comment on above: Performed By: #### U RC #### [address] [address] Switchboard Wirer: Rafa Prieto MD Abs.Neutrophil (Seg) 4.99 k/uL Normal 1.8-7.7 [facility] Comment on above: Performed By: #### U RC #### [address] [address] Switchboard Wirer: Rafa Prieto MD Basophils/100 WBC (Bld) 0 % Normal 0-2 [facility] Comment on above: Performed By: #### U RC #### [address] [address] Switchboard Wirer: Rafa Prieto MD Eosinophils (Bld) [#/Vol] 0.39 10*3/uL Normal 0.0-0.4 [facility] Comment on above: Performed By: #### U RC #### [address] [address] Switchboard Wirer: Rafa Prieto MD Eosinophils/100 WBC (Bld) 5 % High 1-4 [facility] Comment on above: Performed By: #### U RC #### [address] [address] Switchboard Wirer: Rafa Prieto MD Immature granulocytes/100 WBC (Bld) 0 % Normal 0 [facility] Comment on above: Performed By: #### U RC #### [address] [address] Switchboard Wirer: Rafa Prieto MD Lymphocytes (Bld) [#/Vol] 1.48 10*3/uL Normal 1.0-4.8 [facility] Comment on above: Performed By: #### U RC #### [address] [address] Switchboard Wirer: Rafa Prieto MD Lymphocytes/100 WBC (Bld) 19 % Low 24-44 [facility] Comment on above: Performed By: #### U RC #### [address] [address] Switchboard Wirer: Rafa Prieto MD Monocytes (Bld) [#/Vol] 0.94 10*3/uL High 0.1-0.8 [facility] Comment on above: Performed By: #### U RC #### [address] [address] Switchboard Wirer: Rafa Prieto MD Monocytes/100 WBC (Bld) 12 % High 1-7 [facility] Comment on above: Performed By: #### U RC #### [address] [address] Switchboard Wirer: Rafa Prieto MD Morphology [place] (Bld) [Interp] ANISOCYTOSIS PRESENT Normal [facility] Comment on above: Performed By: #### U RC #### [address] [address] Switchboard Wirer: Rafa Prieto MD Neutrophil (Seg) 64 % Normal 36-66 [facility] Comment on above: Performed By: #### U RC #### [address] [address] Switchboard Wirer: Rafa Prieto MD Erythrocyte distribution width (RBC) [Ratio] 16.6 % High 11.8-14.4 [facility] Comment on above: Performed By: #### U RC #### [address] [address] Switchboard Wirer: Rafa Prieto MD Hematocrit (Bld) [Volume fraction] 38.6 % Low 40.7-50.3 [facility] Comment on above: Performed By: #### U RC #### [address] [address] Switchboard Wirer: Rafa Prieto MD Hemoglobin (Bld) [Mass/Vol] 10.9 g/dL Low 13.0-17.0 [facility] Comment on above: Performed By: #### U RC #### [address] [address] Switchboard Wirer: Rafa Prieto MD MCH (RBC) [Entitic mass] 24.0 pg Low 25.2-33.5 [facility] Comment on above: Performed By: #### U RC #### [address] [address] Switchboard Wirer: Rafa Prieto MD MCHC (RBC) [Mass/Vol] 28.2 g/dL Low 28.4-34.8 [facility] Comment on above: Result Comment: TEST CONFIRMED Performed By: #### U RC #### [place] [address] Switchboard Wirer: Rafa Prieto MD MCV (RBC) [Entitic vol] 85.0 fL Normal 82.6-102.9 [facility] Comment on above: Performed By: #### U RC #### [address] [address] Switchboard Wirer: Rafa Prieto MD NRBC Automated 0.0 per 100 WBC Normal 0.0 [facility] Comment on above: Performed By: #### U RC #### [place] [address] Switchboard Wirer: Rafa Prieto MD Platelet mean volume (Bld) [Entitic vol] 11.9 fL Normal 8.1-13.5 [facility] Comment on above: Performed By: #### U RC #### [address] [address] Switchboard Wirer: Rafa Prieto MD Platelets (Bld) [#/Vol] 192 10*3/uL Normal 138-453 [facility] Comment on above: Performed By: #### U RC #### [place] [address] [place] [address] Switchboard Wirer: Rafa Prieto MD RBC (Bld) [#/Vol] 4.54 10*6/uL Normal 4.21-5.77 [facility] Comment on above: Performed By: #### U RC #### [address] [address] Switchboard Wirer: Rafa Prieto MD WBC (Bld) [#/Vol] 7.8 10*3/uL Normal 3.5-11.3 [facility] Comment on above: Performed By: #### U RC #### [address] [address] Switchboard Wirer: Rafa Prieto MD Glucose,Whole Bloodon 2023 Glucose [Mass/Vol] 147 mg/dL High 75-110 [facility] Glucose [Mass/Vol] 178 mg/dL High 75-110 [facility] Glucose [Mass/Vol] 158 mg/dL High 75-110 [facility] Glucose [Mass/Vol] 106 mg/dL Normal -110 [facility] Heparin Anti-Xaon 01-05-2024 Heparin Anti-Xa 0.41 IU/L Normal [facility] Comment on above: Performed By: #### U RC #### [address] [address] Switchboard Wirer: Rafa Prieto MD Basic Metab w/rfx MGon 01-04 Anion gap [Moles/Vol] 8 mmol/L Low 9-17 [facility] Comment on above: Performed By: #### H EPXA, PTT #### [address] [address] Switchboard Wirer: Rafa Prieto MD Calcium [Mass/Vol] 7.7 mg/dL Low 8.6-10.4 [facility] Comment on above: Performed By: #### H EPXA, PTT #### [facility] [address] [place] [address] Switchboard Wirer: Rafa Prieto MD Chloride [Moles/Vol] 98 mmol/L Normal 98-107 [facility] Comment on above: Performed By: #### H EPXA, PTT #### [facility] [address] [place] [address] Switchboard Wirer: Rafa Prieto MD CO2 [Moles/Vol] 26 mmol/L Normal 20-31 [facility] Comment on above: Performed By: #### H EPXA, PTT #### [facility] [address] [place] [address] Switchboard Wirer: Rafa Prieto MD Creatinine [Mass/Vol] 0.6 mg/dL Low 0.7-1.2 [facility] Comment on above: Performed By: #### H EPXA, PTT #### [address] [address] Switchboard Wirer: Rafa Prieto MD GFR/1.73 sq M.predicted among non-blacks MDRD (S/P/Bld) [Vol rate/Area] mL/min/{1.73_m2} Normal >60 [facility] Comment on above: Result Comment: These results are not intended for use in patients <18 years of age. eGFR results are calculated without a race factor using the 2020 CKD-EPI equation. Careful clinical correlation is recommended, particularly when comparing to results calculated using previous equations. The CKD-EPI equation is less accurate in patients with extremes of muscle mass, extra-renal metabolism of creatine, excessive creatine ingestion, or following therapy that affects renal tubular secretion. Performed By: #### H EPXA, PTT #### [address] [address] Switchboard Wirer: Rafa Prieto MD Glucose [Mass/Vol] 94 mg/dL Normal 70-99 [facility] Comment on above: Performed By: #### H EPXA, PTT #### [facility] [address] [place] [address] Switchboard Wirer: Rafa Prieto MD Potassium [Moles/Vol] 3.9 mmol/L Normal 3.7-5.3 [facility] Comment on above: Performed By: #### H EPXA, PTT #### [facility] [address] [place] [address] Switchboard Wirer: Rafa Prieto MD Sodium [Moles/Vol] 132 mmol/L Low 135-144 [facility] Comment on above: Performed By: #### H EPXA, PTT #### [facility] [address] [place] [address] Switchboard Wirer: Rafa Prieto MD Urea nitrogen [Mass/Vol] 12 mg/dL Normal 6-20 [facility] Comment on above: Performed By: #### H EPXA, PTT #### [facility] [employer] [address] [place] [address] Switchboard Wirer: Rafa Prieto MD CBC with Diffon 01-04-2024 Abs. Basophil 0.04 k/uL Normal 0.00-0.20 [facility] Comment on above: Performed By: #### H EPXA, PTT #### [facility] [address] [place] [address]247 Switchboard Wirer: Rafa Prieto MD Abs.Imm.Granulocyte 0.04 k/uL Normal 0.00-0.30 [facility] Comment on above: Performed By: #### H EPXA, PTT #### [facility] [employer] [address] [place] [address] Switchboard Wirer: Rafa Prieto MD Abs.Neutrophil (Seg) 5.71 k/uL Normal 1.50-8.10 [facility] Comment on above: Performed By: #### H EPXA, PTT #### [address] [address] Switchboard Wirer: Rafa Prieto MD Basophils/100 WBC (Bld) 0 % Normal 0-2 [facility] Comment on above: Performed By: #### H EPXA, PTT #### [address] [address] Switchboard Wirer: Rafa Prieto MD Eosinophils (Bld) [#/Vol] 0.30 10*3/uL Normal 0.00-0.44 [facility] Comment on above: Performed By: #### H EPXA, PTT #### [address] [address] Switchboard Wirer: Rafa Prieto MD Eosinophils/100 WBC (Bld) 3 % Normal 1-4 [facility] Comment on above: Performed By: #### H EPXA, PTT #### [address] [address] Switchboard Wirer: Rafa Prieto MD Erythrocyte distribution width (RBC) [Ratio] 16.1 % High 11.8-14.4 [facility] Comment on above: Performed By: #### H EPXA, PTT #### [facility] [employer] [address] [place] [address] Switchboard Wirer: Rafa Prieto MD Hematocrit (Bld) [Volume fraction] 36.0 % Low 40.7-50.3 [facility] Comment on above: Performed By: #### H EPXA, PTT #### [facility] [employer] [address] [place] [address] Switchboard Wirer: Rafa Prieto MD Hemoglobin (Bld) [Mass/Vol] 10.5 g/dL Low 13.0-17.0 [facility] Comment on above: Performed By: #### H EPXA, PTT #### [facility] [employer] [address] [place] [address]489 Switchboard Wirer: Rafa Prieto MD Immature granulocytes/100 WBC (Bld) 0 % Normal 0 [facility] Comment on above: Performed By: #### H EPXA, PTT #### [address] [address] Switchboard Wirer: Rafa Prieto MD Lymphocytes (Bld) [#/Vol] 1.76 10*3/uL Normal 1.10-3.70 [facility] Comment on above: Performed By: #### H EPXA, PTT #### [facility] [employer] [address] [place] [address] Switchboard Wirer: Rafa Prieto MD Lymphocytes/100 WBC (Bld) 20 % Low 24-43 [facility] Comment on above: Performed By: #### H EPXA, PTT #### [address] [address] Switchboard Wirer: Rafa Prieto MD MCH (RBC) [Entitic mass] 24.1 pg Low 25.2-33.5 [facility] Comment on above: Performed By: #### H EPXA, PTT #### [address] [address] Switchboard Wirer: Rafa Prieto MD MCHC (RBC) [Mass/Vol] 29.2 g/dL Normal 28.4-34.8 [facility] Comment on above: Performed By: #### H EPXA, PTT #### [address] [address] Switchboard Wirer: Rafa Prieto MD MCV (RBC) [Entitic vol] 82.8 fL Normal 82.6-102.9 [facility] Comment on above: Performed By: #### H EPXA, PTT #### [facility] [employer] [address] [place] [address] Switchboard Wirer: Rafa Prieto MD Monocytes (Bld) [#/Vol] 1.12 10*3/uL Normal 0.10-1.20 [facility] Comment on above: Performed By: #### H EPXA, PTT #### [address] [address] Switchboard Wirer: Rafa Prieto MD Monocytes/100 WBC (Bld) 13 % High 3-12 [facility] Comment on above: Performed By: #### H EPXA, PTT #### [address] [address] Switchboard Wirer: Rafa Prieto MD Neutrophil (Seg) 64 % Normal 36-65 [facility] Comment on above: Performed By: #### H EPXA, PTT #### [address] [address] Switchboard Wirer: Rafa Prieto MD NRBC Automated 0.0 per 100 WBC Normal 0.0 [facility] Comment on above: Performed By: #### H EPXA, PTT #### [address] [address] Switchboard Wirer: Rafa Prieto MD Platelet mean volume (Bld) [Entitic vol] 11.1 fL Normal 8.1-13.5 [facility] Comment on above: Performed By: #### H EPXA, PTT #### [address] [address] Switchboard Wirer: Rafa Prieto MD Platelets (Bld) [#/Vol] 207 10*3/uL Normal 138-453 [facility] Comment on above: Performed By: #### H EPXA, PTT #### [address] [address] Switchboard Wirer: Rafa Prieto MD RBC (Bld) [#/Vol] 4.35 10*6/uL Normal 4.21-5.77 [facility] Comment on above: Performed By: #### H EPXA, PTT #### [facility] [place] [address] Switchboard Wirer: Rafa Prieto MD RBC morphology finding Nom (Bld) ANISOCYTOSIS PRESENT Normal [facility] Comment on above: Performed By: #### H EPXA, PTT #### [facility] [address] [place] [address] Switchboard Wirer: Rafa Prieto MD WBC (Bld) [#/Vol] 9.0 10*3/uL Normal 3.5-11.3 [facility] Comment on above: Performed By: #### H EPXA, PTT #### [facility] [employer] [address] [place] [address] Switchboard Wirer: Rafa Prieto MD Glucose,Whole Bloodon 2023 Glucose [Mass/Vol] 143 mg/dL High 75-110 [facility] Glucose [Mass/Vol] 150 mg/dL High 75-110 [facility] Hemoglobin A1Con 01-04-2024 Glucose [Mass/Vol] 140 mg/dL Normal [facility] Comment on above: Result Comment: The ADA and AACC recommend providing the estimated average glucose result to permit better patient understanding of their HBA1c result. Performed By: #### H EPXA, PTT #### [facility] [employer] [address] [place] [address] Switchboard Wirer: Rafa Prieto MD HbA1c (Bld) [Mass fraction] 6.5 % High 4.0-6.0 [facility] Comment on above: Performed By: #### H EPXA, PTT #### [facility] [employer] [address] [place] [address] Switchboard Wirer: Rafa Prieto MD Heparin Anti-Xaon 3 Heparin Anti-Xa 0.53 IU/L Normal [facility] Comment on above: Performed By: #### T ROPI #### [facility] [address] [place] [address] Switchboard Wirer: Rafa Prieto MD Heparin Anti-Xa 0.65 IU/L Normal [facility] Comment on above: Performed By: #### U RC #### [facility] [address] [place] [address] Switchboard Wirer: Rfaa Prieto MD Heparin Anti-Xa 0.29 IU/L Normal [facility] Comment on above: Performed By: #### H EPXA, PTT #### [facility] [address] [place] [address] Switchboard Wirer: Rafa Prieto MD Basic Metab w/rfx MGon 01-03 Anion gap [Moles/Vol] 8 mmol/L Low 9-17 [facility] Comment on above: Performed By: #### H EPXA, PTT #### [address] [address] Switchboard Wirer: Rafa Prieto MD Calcium [Mass/Vol] 7.8 mg/dL Low 8.6-10.4 [facility] Comment on above: Performed By: #### H EPXA, PTT #### [facility] [employer] [address] [place] [address] Switchboard Wirer: Rafa Prieto MD Chloride [Moles/Vol] 94 mmol/L Low 98-107 [facility] Comment on above: Performed By: #### H EPXA, PTT #### [facility] [address] [place] [address] Switchboard Wirer: Rafa Prieto MD CO2 [Moles/Vol] 25 mmol/L Normal 20-31 [facility] Comment on above: Performed By: #### H EPXA, PTT #### [facility] [address] [place] [address] Switchboard Wirer: Rafa Prieto MD Creatinine [Mass/Vol] 0.6 mg/dL Low 0.7-1.2 [facility] Comment on above: Performed By: #### H EPXA, PTT #### [facility] [address] [place] [address] Switchboard Wirer: Rafa Prieto MD GFR/1.73 sq M.predicted among non-blacks MDRD (S/P/Bld) [Vol rate/Area] mL/min/{1.73_m2} Normal >60 [facility] Comment on above: Result Comment: These results are not intended for use in patients <18 years of age. eGFR results are calculated without a race factor using the 2020 CKD-EPI equation. Careful clinical correlation is recommended, particularly when comparing to results calculated using previous equations. The CKD-EPI equation is less accurate in patients with extremes of muscle mass, extra-renal metabolism of creatine, excessive creatine ingestion, or following therapy that affects renal tubular secretion. Performed By: #### H EPXA, PTT #### [facility] [address] [place] [address] Switchboard Wirer: Rafa Prieto MD Glucose [Mass/Vol] 108 mg/dL High 70-99 [facility] Comment on above: Performed By: #### H EPXA, PTT #### [facility] [address] [place] [address]12 Switchboard Wirer: Rafa Prieto MD Potassium [Moles/Vol] 3.7 mmol/L Normal 3.7-5.3 [facility] Comment on above: Performed By: #### H EPXA, PTT #### [employer] [address] [place] [address] Switchboard Wirer: Rafa Prieto MD Sodium [Moles/Vol] 127 mmol/L Low 135-144 [facility] Comment on above: Performed By: #### H EPXA, PTT #### [employer] [address] [place] [address] 41289 Switchboard Wirer: Rafa Prieto MD Urea nitrogen [Mass/Vol] 15 mg/dL Normal 6-20 [facility] Comment on above: Performed By: #### H EPXA, PTT #### [facility] [employer] [address] [place] [address] Switchboard Wirer: Rafa Prieto MD Brain Natri. Peptideon 01-03 Natriuretic peptide B (Bld) [Mass/Vol] 1253 pg/mL High <300 [facility] Comment on above: Result Comment: An age-independent cutoff point of 300 pg/ml has a 98% negative predictive value excluding acute heart failure. Performed By: #### H EPXA, BNP, TROPI ####[facility] [address] [place] [address])[phone] Director: Rafa Prieto MD CBC with Diffon 01-03-2024 Abs. Basophil 0.05 k/uL Normal 0.00-0.20 [facility] Comment on above: Performed By: #### H EPXA, PTT #### [facility] [employer] [address] [place] [address] Switchboard Wirer: Rafa Prieto MD Abs.Imm.Granulocyte <0.03 Normal 0.00-0.30 [facility] Comment on above: Performed By: #### H EPXA, PTT #### [facility] [employer] [address] [place] [address]66 Switchboard Wirer: Rafa Prieto MD Abs.Neutrophil (Seg) 4.63 k/uL Normal 1.50-8.10 [facility] Comment on above: Performed By: #### H EPXA, PTT #### [facility] [employer] [facility] [place] [address] Switchboard Wirer: Rafa Prieto MD Basophils/100 WBC (Bld) 1 % Normal 0-2 [facility] Comment on above: Performed By: #### H EPXA, PTT #### [facility] [address] [place] [address] Switchboard Wirer: Rafa Prieto MD Eosinophils (Bld) [#/Vol] 0.23 10*3/uL Normal 0.00-0.44 [facility] Comment on above: Performed By: #### H EPXA, PTT #### [address] [address] Switchboard Wirer: Rafa Prieto MD Eosinophils/100 WBC (Bld) 3 % Normal 1-4 [facility] Comment on above: Performed By: #### H EPXA, PTT #### [facility] [employer] [address] [place] [address]006 Switchboard Wirer: Rafa Prieto MD Erythrocyte distribution width (RBC) [Ratio] 16.2 % High 11.8-14.4 [facility] Comment on above: Performed By: #### H EPXA, PTT #### [address] [address] Switchboard Wirer: Rafa Prieto MD Hematocrit (Bld) [Volume fraction] 37.7 % Low 40.7-50.3 [facility] Comment on above: Performed By: #### H EPXA, PTT #### [address] [address] Switchboard Wirer: Rafa Prieto MD Hemoglobin (Bld) [Mass/Vol] 10.9 g/dL Low 13.0-17.0 [facility] Comment on above: Performed By: #### H EPXA, PTT #### [address] [address] Switchboard Wirer: Rafa Prieto MD Immature granulocytes/100 WBC (Bld) 0 % Normal 0 [facility] Comment on above: Performed By: #### H EPXA, PTT #### [facility] [employer] [address] [place] [address] Switchboard Wirer: Rafa Prieto MD Lymphocytes (Bld) [#/Vol] 1.96 10*3/uL Normal 1.10-3.70 [facility] Comment on above: Performed By: #### H EPXA, PTT #### [address] [address] Switchboard Wirer: Rafa Prieto MD Lymphocytes/100 WBC (Bld) 24 % Normal 24-43 [facility] Comment on above: Performed By: #### H EPXA, PTT #### [place] [address] Switchboard Wirer: Rafa Prieto MD MCH (RBC) [Entitic mass] 24.2 pg Low 25.2-33.5 [facility] Comment on above: Performed By: #### H EPXA, PTT #### [address] [address] Switchboard Wirer: Rafa Prieto MD MCHC (RBC) [Mass/Vol] 28.9 g/dL Normal 28.4-34.8 [facility] Comment on above: Performed By: #### H EPXA, PTT #### [address] [address] Switchboard Wirer: Rafa Prieto MD MCV (RBC) [Entitic vol] 83.6 fL Normal 82.6-102.9 [facility] Comment on above: Performed By: #### H EPXA, PTT #### [place] [address] [employer]board [employer]r: Rafa Prieto MD Monocytes (Bld) [#/Vol] 1.23 10*3/uL High 0.10-1.20 [facility] Comment on above: Performed By: #### H EPXA, PTT #### [facility] [employer] [address] [place] [address] Switchboard Wirer: Rafa Prieto MD Monocytes/100 WBC (Bld) 15 % High 3-12 [facility] Comment on above: Performed By: #### H EPXA, PTT #### [facility] [employer] [address] [place] [address] Switchboard Wirer: Rafa Prieto MD Neutrophil (Seg) 57 % Normal 36-65 [facility] Comment on above: Performed By: #### H EPXA, PTT #### [address] [address] Switchboard Wirer: Rafa Prieto MD NRBC Automated 0.0 per 100 WBC Normal 0.0 [facility] Comment on above: Performed By: #### H EPXA, PTT #### [address] [address] [employer]board Wirer: Rafa Prieto MD Platelet mean volume (Bld) [Entitic vol] 10.8 fL Normal 8.1-13.5 [facility] Comment on above: Performed By: #### H EPXA, PTT #### [address] [address] [employer]board Wirer: Rafa Prieto MD Platelets (Bld) [#/Vol] 194 10*3/uL Normal 138-453 [facility] Comment on above: Performed By: #### H EPXA, PTT #### [address] [address] Switchboard Wirer: Rafa Prieto MD RBC (Bld) [#/Vol] 4.51 10*6/uL Normal 4.21-5.77 [facility] Comment on above: Performed By: #### H EPXA, PTT #### [facility] [employer] [address] [place] [address] Switchboard Wirer: Rafa Prieto MD RBC morphology finding Nom (Bld) ANISOCYTOSIS PRESENT Normal [facility] Comment on above: Performed By: #### H EPXA, PTT #### [facility] [employer] [address] [place] [address] Switchboard Wirer: Rafa Prieto MD WBC (Bld) [#/Vol] 8.1 10*3/uL Normal 3.5-11.3 [facility] Comment on above: Performed By: #### H EPXA, PTT #### [facility] [employer] [address] [place] [address] Switchboard Wirer: Rafa Prieto MD Glucose,Whole Bloodon 2023 Glucose [Mass/Vol] 143 mg/dL High 75-110 [facility] Glucose [Mass/Vol] 107 mg/dL Normal 75-110 [facility] Heparin Anti-Xaon 01-03-2024 Heparin Anti-Xa 0.48 IU/L Normal [facility] Comment on above: Performed By: #### H EPXA, BNP, TROPI ####[address] [address] Lab Director: Rafa Prieto MD Osmolalityon 01-03-2024 Osmolality [Osmolality] 280 mosm/kg Normal 275-295 [facility] Comment on above: Performed By: #### O SMO, REJEC ####[address] [address] Lab Director: Rafa Prieto MD Osmolality, Urineon 01-03-20 24 Osmolality - Urine 293 mOsm/kg Normal 80-1300 [facility] Comment on above: Performed By: #### U RC #### [facility] [employer] [address] [place] [address] Switchboard Wirer: Rafa Prieto MD Sodium, Random Uron 01-03-20 24 Na Conc. Urine <20 Normal [facility] Comment on above: Result Comment: No n ormal range established. Performed By: #### U RC #### [address] [address] Switchboard Wirer: Rafa Prieto MD Specimen Rejectionon 024 Reason for rejection Unable to perform testing: Specimen quantity not sufficient. Normal [facility] Comment on above: Performed By: #### O SMO, REJEC ####[facility] [address] [place], [place] [id number] Lab Director: Rafa Prieto MD Source of sample .BLOOD Normal [facility] Comment on above: Performed By: #### O SMO, REJEC ####[facility] [address] [place], [place] [id number] Lab Director: Rafa Prieto MD Test ordered BNP TROPI Normal [facility] Comment on above: Performed By: #### O SMO, REJEC ####[facility] [address] [place], [place] [id number] lab Director: Rafa Prieto MD Troponinon 01-03-2024 Troponin, High Sens 57 ng/L Critically high 0-22 [facility] Comment on above: Result Comment: High Sensitivity Troponin values cannot be compared with other Troponin methodologies. Performed By: #### U RC #### [facility] [address] [place] [address] Switchboard Wirer: Rafa Prieto MD XR CHEST PORTABLEon 01-03-20 XR CHEST PORTABLE EXAMINATION: ONE XRAY VIEW OF THE CHEST 01/03/2024 10:17 am COMPARISON: None. HISTORY: ORDERING SYSTEM PROVIDED HISTORY: increasing Fio[employer] TECHNOLOGIST PROVIDED HISTORY: increasing [employer]io[employer] FINDINGS: There is bilateral basal and left upper lobe infiltrates/atelectas is. Bony structures are unremarkable. IMPRESSION: Bilateral basal and left upper lobe infiltrates/atelectas is. Interpreted by: Samir Infante MD Signed by: Samir Infante MD 01/03/24 Final result Normal [facility] Arterial Bld Gas,POCon 01-02 Rao Test Positive Normal [facility] HCO3 (Bld) [Moles/Vol] 30.0 mmol/L High 21.0-28.0 [facility] Oxygen saturation in Blood 93.2 % Low 94.0-98.0 [facility] Patient Temp. 37.7 Normal [facility] pCO2, Arterial 53.1 mm Hg High 35.0-48.0 [facility] pCO2, Temp Adjust 54.7 mm Hg Normal [facility] pH, Arterial 7.361 Normal 7.350-7.450 [facility] pH, Temp Adjust 7.350 Normal [facility] pO2, Arterial 71.8 mm Hg Low 83.0-108.0 [facility] pO2, Temp Adjust 75.2 mm Hg Normal [facility] Positive Base Excess (calc) 3.3 mmol/L High 0.0-3.0 [facility] Site Drawn Left Radial Artery Normal [facility] Basic Metab w/rfx MGon 01-02 Anion gap [Moles/Vol] 9 mmol/L Normal 9-17 [facility] Comment on above: Performed By: #### H EPXA, PTT #### [employer] [address] [place] [address] Switchboard Wirer: Rafa Prieto MD Calcium [Mass/Vol] 8.0 mg/dL Low 8.6-10.4 [facility] Comment on above: Performed By: #### H EPXA, PTT #### [employer] [address] [place] [address] Switchboard Wirer: Rafa Prieto MD Chloride [Moles/Vol] 100 mmol/L Normal 98-107 [facility] Comment on above: Performed By: #### H EPXA, PTT #### [employer] [address] [place] [address] Switchboard Wirer: Rafa Prieto MD CO2 [Moles/Vol] 26 mmol/L Normal 20-31 [facility] Comment on above: Performed By: #### H EPXA, PTT #### [employer] [facility] [place] [address] Switchboard Wirer: Rafa Prieto MD Creatinine [Mass/Vol] 0.7 mg/dL Normal 0.7-1.2 [facility] Comment on above: Performed By: #### H EPXA, PTT #### [employer] [address] [place] [address] [employer]board [employer]r: Rafa Prieto MD GFR/1.73 sq M.predicted among non-blacks MDRD (S/P/Bld) [Vol rate/Area] mL/min/{1.73_m2} Normal >60 [facility] Comment on above: Result Comment: These results are not intended for use in patients <18 years of age. eGFR results are calculated without a race factor using the 2020 CKD-EPI equation. Careful clinical correlation is recommended, particularly when comparing to results calculated using previous equations. The CKD-EPI equation is less accurate in patients with extremes of muscle mass, extra-renal metabolism of creatine, excessive creatine ingestion, or following therapy that affects renal tubular secretion. Performed By: #### H EPXA, PTT #### [employer] [address] [place] [address] 99928 Switchboard Wirer: Rafa Prieto MD Glucose [Mass/Vol] 110 mg/dL High 70-99 [facility] Comment on above: Performed By: #### H EPXA, PTT #### [facility] [employer] [address] [place] [address] 50298 Switchboard Wirer: Rafa Prieto MD Potassium [Moles/Vol] 3.9 mmol/L Normal 3.7-5.3 [facility] Comment on above: Performed By: #### H EPXA, PTT #### [facility] [employer] [address] [place] [address] 30053 Switchboard Wirer: Rafa Prieto MD Sodium [Moles/Vol] 135 mmol/L Normal 135-144 [facility] Comment on above: Performed By: #### H EPXA, PTT #### [facility] [employer] [address] [place] [address] 22810 Switchboard Wirer: Rafa Prieto MD Urea nitrogen [Mass/Vol] 15 mg/dL Normal 6-20 [facility] Comment on above: Performed By: #### H EPXA, PTT #### [facility] [employer] [address] [place] [address] 73138 Switchboard Wirer: Rafa Prieto MD CBC with Diffon 01-02-2024 Abs. Basophil 0.00 k/uL Normal 0.0-0.2 [facility] Comment on above: Performed By: #### H EPXA, PTT #### [facility] [employer] [address] [place] [address] 34581 Switchboard Wirer: Rafa Prieto MD Abs.Imm.Granulocyte 0.00 k/uL Normal 0.00-0.30 [facility] Comment on above: Performed By: #### H EPXA, PTT #### [facility] [employer] [address] [place] [address] 52233 Switchboard Wirer: Rafa Prieto MD Abs.Neutrophil (Seg) 4.48 k/uL Normal 1.8-7.7 [facility] Comment on above: Performed By: #### H EPXA, PTT #### [address] [address] Switchboard Wirer: Rafa Prieto MD Basophils/100 WBC (Bld) 0 % Normal 0-2 [facility] Comment on above: Performed By: #### H EPXA, PTT #### [facility] [employer] [address] [place] [address] 22798 Switchboard Wirer: Rafa Prieto MD Eosinophils (Bld) [#/Vol] 0.08 10*3/uL Normal 0.0-0.4 [facility] Comment on above: Performed By: #### H EPXA, PTT #### [facility] [employer] [address] [place] [address] 21207 Switchboard Wirer: Rafa Prieto MD Eosinophils/100 WBC (Bld) 1 % Normal 1-4 [facility] Comment on above: Performed By: #### H EPXA, PTT #### [facility] [address] [place] [address] 44307 Switchboard Wirer: Rafa Prieto MD Immature granulocytes/100 WBC (Bld) 0 % Normal 0 [facility] Comment on above: Performed By: #### H EPXA, PTT #### [facility] [address] [place] [address] 97119 Switchboard Wirer: Rafa Prieto MD Lymphocytes (Bld) [#/Vol] 1.76 10*3/uL Normal 1.0-4.8 [facility] Comment on above: Performed By: #### H EPXA, PTT #### [facility] [employer] [address] [place] [address] 94357 Switchboard Wirer: Rafa Prieto MD Lymphocytes/100 WBC (Bld) 22 % Low 24-44 [facility] Comment on above: Performed By: #### H EPXA, PTT #### [address] [address] Switchboard Wirer: Rafa Prieto MD Monocytes (Bld) [#/Vol] 1.68 10*3/uL High 0.1-0.8 [facility] Comment on above: Performed By: #### H EPXA, PTT #### [facility] [employer] [address] [place] [address] 44065 Switchboard Wirer: Rafa Prieto MD Monocytes/100 WBC (Bld) 21 % High 1-7 [facility] Comment on above: Performed By: #### H EPXA, PTT #### [facility] [employer] [address] [place] [address] 94569 Switchboard Wirer: Rafa Prieto MD Morphology Rancho (Bld) [Interp] ANISOCYTOSIS PRESENT Normal [facility] Comment on above: Performed By: #### H EPXA, PTT #### [facility] [employer] [address] [place] [address] 21298 Switchboard Wirer: Rafa Prieto MD Neutrophil (Seg) 56 % Normal 36-66 [facility] Comment on above: Performed By: #### H EPXA, PTT #### [address] [address] Switchboard Wirer: Rafa Prieto MD Erythrocyte distribution width (RBC) [Ratio] 15.9 % High 11.8-14.4 [facility] Comment on above: Performed By: #### H EPXA, PTT #### [facility] [employer] [address] [place] [address] 24782 Switchboard Wirer: Rafa Prieto MD Hematocrit (Bld) [Volume fraction] 40.7 % Normal 40.7-50.3 [facility] Comment on above: Performed By: #### H EPXA, PTT #### [address] [address] Switchboard Wirer: Rafa Prieto MD Hemoglobin (Bld) [Mass/Vol] 11.6 g/dL Low 13.0-17.0 [facility] Comment on above: Performed By: #### H EPXA, PTT #### [address] [address] Switchboard Wirer: Rafa Prieto MD MCH (RBC) [Entitic mass] 24.0 pg Low 25.2-33.5 [facility] Comment on above: Performed By: #### H EPXA, PTT #### [facility] [employer] [address] [place] [address] 47758 Switchboard Wirer: Rafa Prieto MD MCHC (RBC) [Mass/Vol] 28.5 g/dL Normal 28.4-34.8 [facility] Comment on above: Performed By: #### H EPXA, PTT #### [facility] [employer] [address] [place] [address] 80135 Switchboard Wirer: Rafa Prieto MD MCV (RBC) [Entitic vol] 84.1 fL Normal 82.6-102.9 [facility] Comment on above: Performed By: #### H EPXA, PTT #### [address] [address] Switchboard Wirer: Rafa Prieto MD NRBC Automated 0.0 per 100 WBC Normal 0.0 [facility] Comment on above: Performed By: #### H EPXA, PTT #### [address] [address] Switchboard Wirer: Rafa Prieto MD Platelet mean volume (Bld) [Entitic vol] 11.1 fL Normal 8.1-13.5 [facility] Comment on above: Performed By: #### H EPXA, PTT #### [address] [address] Switchboard Wirer: Rafa Prieto MD Platelets (Bld) [#/Vol] 212 10*3/uL Normal 138-453 [facility] Comment on above: Performed By: #### H EPXA, PTT #### [address] [address] Switchboard Wirer: Rafa Prieto MD RBC (Bld) [#/Vol] 4.84 10*6/uL Normal 4.21-5.77 [facility] Comment on above: Performed By: #### H EPXA, PTT #### [address] [address] Switchboard Wirer: Rafa Prieto MD WBC (Bld) [#/Vol] 8.0 10*3/uL Normal 3.5-11.3 [facility] Comment on above: Performed By: #### H EPXA, PTT #### [address] [address] Switchboard Wirer: Rafa Prieto MD Glucose (POC)on 01-02-2024 Glucose [Mass/Vol] 116 mg/dL High 74-100 [facility] Glucose,Whole Bloodon 2023 Glucose [Mass/Vol] 165 mg/dL High 75-110 [facility] Glucose [Mass/Vol] 209 mg/dL High 75-110 [facility] Glucose [Mass/Vol] 115 mg/dL High 75-110 [facility] Glucose [Mass/Vol] 78 mg/dL Normal 75-110 [facility] Heparin Anti-Xaon 01-02-2024 Heparin Anti-Xa 0.55 IU/L Normal [facility] Comment on above: Performed By: #### H EPXA, PTT #### [facility] [address] [place] [address] 13141 Switchboard Wirer: Rafa Prieto MD Heparin Anti-Xa 0.63 IU/L Normal [facility] Comment on above: Performed By: #### H EPXA ####[facility] [address] [place] [address] Lab Director: Rafa Prieto MD APTTon 01-01-2024 aPTT Coag (Bld) [Time] 123.5 s Critically high 23.0-36.5 [facility] Comment on above: Result Comment: IV Heparin Therapy Range: 66.0-92.0 sec Performed By: #### H EPXA, PTT #### [employer] [address] [place] [address] Switchboard Wirer: Rafa Prieto MD aPTT Coag (Bld) [Time] 82.0 s High 23.0-36.5 [facility] Comment on above: Result Comment: IV Heparin Therapy Range: 66.0-92.0 sec Performed By: #### H EPXA, PTT #### [employer] [facility] [place], [place] [phone] Switchboard Wirer: Rafa Prieto MD aPTT Coag (Bld) [Time] 122.3 s Critically high 23.0-36.5 [facility] Comment on above: Result Comment: IV Heparin Therapy Range: 66.0-92.0 sec Performed By: #### T ROPI #### [facility] [employer] [facility] [place] [address] Switchboard Wirer: Rafa Prieto MD Basic Metab w/rfx MGon 01-01 Creatinine [Mass/Vol] 0.8 mg/dL Normal 0.7-1.2 [facility] Comment on above: Result Comment: ICTE MANSOOR SPECIMEN Performed By: #### B MPX, CDP, TROPI, MG ####[facility] [address] [place] [address] Lab Director: Rafa Prieto MD GFR/1.73 sq M.predicted among non-blacks MDRD (S/P/Bld) [Vol rate/Area] mL/min/{1.73_m2} Normal >60 [facility] Comment on above: Result Comment: These results are not intended for use in patients <18 years of age. eGFR results are calculated without a race factor using the 2020 CKD-EPI equation. Careful clinical correlation is recommended, particularly when comparing to results calculated using previous equations. The CKD-EPI equation is less accurate in patients with extremes of muscle mass, extra-renal metabolism of creatine, excessive creatine ingestion, or following therapy that affects renal tubular secretion. Performed By: #### B MPX, CDP, TROPI, MG ####[facility] [address]mp[address] [place] [address] Lab Director: Rafa Prieto MD Potassium [Moles/Vol] 3.5 mmol/L Low 3.7-5.3 [facility] Comment on above: Performed By: #### B MPX, CDP, TROPI, MG ####[facility] NetworkQijwjejafddc[address] [place] [address] [id number] Lab Director: Rafa Prieto MD Anion gap [Moles/Vol] 13 mmol/L Normal 9-17 [facility] Comment on above: Performed By: #### B MPX, CDP, TROPI, MG ####[facility] [address] [place] [address] Lab Director: Rafa Prieto MD Calcium [Mass/Vol] 8.3 mg/dL Low 8.6-10.4 [facility] Comment on above: Performed By: #### B MPX, CDP, TROPI, MG ####[facility] [address] [place] [address] Lab Director: Rafa Prieto MD Chloride [Moles/Vol] 99 mmol/L Normal 98-107 [facility] Comment on above: Performed By: #### B MPX, CDP, TROPI, MG ####[facility] [address] [place], [place] [id number])[phone] Director: Rafa Prieto MD CO2 [Moles/Vol] 25 mmol/L Normal 20-31 [facility] Comment on above: Performed By: #### B MPX, CDP, TROPI, MG ####[facility] [address] [place] [address] Lab Director: Rafa Prieto MD Glucose [Mass/Vol] 89 mg/dL Normal 70-99 [facility] Comment on above: Performed By: #### B MPX, CDP, TROPI, MG ####[facility] [address] [place] [address] Lab Director: Rafa Prieto MD Sodium [Moles/Vol] 137 mmol/L Normal 135-144 [facility] Comment on above: Performed By: #### B MPX, CDP, TROPI, MG ####[facility] [address] [place], [place] [id number])[phone] Director: Rafa Prieto MD Urea nitrogen [Mass/Vol] 20 mg/dL Normal 6-20 [facility] Comment on above: Performed By: #### B MPX, CDP, TROPI, MG ####[facility] [address] [facility] [place] [id number] Lab Director: Rafa Prieto MD Basic Metabolic Profon 01-01 Creatinine [Mass/Vol] 0.7 mg/dL Normal 0.7-1.2 [facility] Comment on above: Result Comment: ICTE MANSOOR SPECIMEN Performed By: #### T ROPI #### [facility] [address] [place] [address] Switchboard Wirer: Rafa Prieto MD GFR/1.73 sq M.predicted among non-blacks MDRD (S/P/Bld) [Vol rate/Area] mL/min/{1.73_m2} Normal >60 [facility] Comment on above: Result Comment: These results are not intended for use in patients <18 years of age. eGFR results are calculated without a race factor using the 2020 CKD-EPI equation. Careful clinical correlation is recommended, particularly when comparing to results calculated using previous equations. The CKD-EPI equation is less accurate in patients with extremes of muscle mass, extra-renal metabolism of creatine, excessive creatine ingestion, or following therapy that affects renal tubular secretion. Performed By: #### T ROPI #### [facility] [address] [place] [address] Switchboard Wirer: Rafa Prieto MD Anion gap [Moles/Vol] 12 mmol/L Normal 9-17 [facility] Comment on above: Performed By: #### T ROPI #### [facility] [address] [place] [address] 17960 Switchboard Wirer: Rafa Prieto MD Calcium [Mass/Vol] 8.3 mg/dL Low 8.6-10.4 [facility] Comment on above: Performed By: #### T ROPI #### [facility] [address] [place] [address] Switchboard Wirer: Rafa Prieto MD Chloride [Moles/Vol] 98 mmol/L Normal 98-107 [facility] Comment on above: Performed By: #### T ROPI #### [facility] [facility] [place] [address] Switchboard Wirer: Rafa Prieto MD CO2 [Moles/Vol] 25 mmol/L Normal 20-31 [facility] Comment on above: Performed By: #### T ROPI #### [facility] [employer] [address] [place] [address] 71334 Switchboard Wirer: Rafa Prieto MD Glucose [Mass/Vol] 125 mg/dL High 70-99 [facility] Comment on above: Performed By: #### T ROPI #### [facility] [employer] [address] [place] [address] 7[address] Switchboard Wirer: Rafa Prieto MD Potassium [Moles/Vol] 3.6 mmol/L Low 3.7-5.3 [facility] Comment on above: Performed By: #### T ROPI #### [facility] [employer] [address] [place] [address] 8[address] Switchboard Wirer: Rafa Prieto MD Sodium [Moles/Vol] 135 mmol/L Normal 135-144 [facility] Comment on above: Performed By: #### T ROPI #### [facility] [employer] [address] [place] [address] 41943 Switchboard Wirer: Rafa Prieto MD Urea nitrogen [Mass/Vol] 22 mg/dL High 6-20 [facility] Comment on above: Performed By: #### T ROPI #### [facility] [employer] [address] [place] [address] 56934 Switchboard Wirer: Rafa Prieto MD Brain Natri. Peptideon 01-01 Natriuretic peptide B (Bld) [Mass/Vol] 2437 pg/mL High <300 [facility] Comment on above: Result Comment: An age-independent cutoff point of 300 pg/ml has a 98% negative predictive value excluding acute heart failure. Performed By: #### T ROPI #### [facility] [address] [place] [address] Switchboard Wirer: Rafa Prieto MD CBC with Diffon 01-01-2024 Abs. Basophil 0.00 k/uL Normal 0.00-0.20 [facility] Comment on above: Performed By: #### B MPX, CDP, TROPI, MG ####[facility] [address] [place], [place] [address])[phone] Director: Rafa Prieto MD Abs.Imm.Granulocyte 0.00 k/uL Normal 0.00-0.30 [facility] Comment on above: Performed By: #### B MPX, CDP, TROPI, MG ####[facility] [address] [place], [place] [address])[phone] Director: Rafa Prieto MD Abs.Neutrophil (Seg) 4.00 k/uL Normal 1.50-8.10 [facility] Comment on above: Performed By: #### B MPX, CDP, TROPI, MG ####[facility] [address] [place], [place] [address])[phone] Director: Rafa Prieto MD Basophils/100 WBC (Bld) 0 % Normal 0-2 [facility] Comment on above: Performed By: #### B MPX, CDP, TROPI, MG ####[facility] [address] [place], [place] [address])[phone] Director: Rafa Prieto MD Eosinophils (Bld) [#/Vol] 0.00 10*3/uL Normal 0.00-0.44 [facility] Comment on above: Performed By: #### B MPX, CDP, TROPI, MG ####[facility] [address] [place], [place] [address])[phone] Director: Rafa Prieto MD Eosinophils/100 WBC (Bld) 0 % Low 1-4 [facility] Comment on above: Performed By: #### B MPX, CDP, TROPI, MG ####[facility] [address]jr[address] [place], [place] [id number])[phone] Director: Rafa Prieto MD Immature granulocytes/100 WBC (Bld) 0 % Normal 0 [facility] Comment on above: Performed By: #### B MPX, CDP, TROPI, MG ####[facility] [address] [place], [place] [id number])[phone] Director: Rafa Prieto MD Lymphocytes (Bld) [#/Vol] 1.70 10*3/uL Normal 1.10-3.70 [facility] Comment on above: Performed By: #### B MPX, CDP, TROPI, MG ####[facility] [address] [place], [place] [id number])[phone] Director: Rafa Prieto MD Lymphocytes/100 WBC (Bld) 23 % Low 24-43 [facility] Comment on above: Performed By: #### B MPX, CDP, TROPI, MG ####[facility] [address] [place], [place] [id number])[phone] Director: Rafa Prieto MD Monocytes (Bld) [#/Vol] 1.70 10*3/uL High 0.10-1.20 [facility] Comment on above: Performed By: #### B MPX, CDP, TROPI, MG ####[facility] [address] [place], [place] [id number])[phone] Director: Rafa Prieto MD Monocytes/100 WBC (Bld) 23 % High 3-12 [facility] Comment on above: Performed By: #### B MPX, CDP, TROPI, MG ####[facility] [address] [place], [place] [phone])[phone] Director: Rafa Prieto MD Morphology Rancho (Bld) [Interp] ANISOCYTOSIS PRESENT Normal [facility] Comment on above: Result Comment: MICR OCYTOSIS PRESENT Performed By: #### B MPX, CDP, TROPI, MG ####[facility] [address] [place] [address] Lab Director: Rafa Prieto MD Neutrophil (Seg) 54 % Normal 36-65 [facility] Comment on above: Performed By: #### B MPX, CDP, TROPI, MG ####[facility] [address] [place] [address] Lab Director: Rafa Prieto MD Erythrocyte distribution width (RBC) [Ratio] 15.8 % High 11.8-14.4 [facility] Comment on above: Performed By: #### B MPX, CDP, TROPI, MG ####[facility] [address] [place], [place] [address])[phone] Director: Rafa Prieto MD Hematocrit (Bld) [Volume fraction] 40.9 % Normal 40.7-50.3 [facility] Comment on above: Performed By: #### B MPX, CDP, TROPI, MG ####[facility] [address] [place], [place] [address])[phone] Director: Rafa Prieto MD Hemoglobin (Bld) [Mass/Vol] 12.3 g/dL Low 13.0-17.0 [facility] Comment on above: Performed By: #### B MPX, CDP, TROPI, MG ####[facility] [address]coefmkrme[address] [place] [address] Lab Director: Rafa Prieto MD MCH (RBC) [Entitic mass] 24.2 pg Low 25.2-33.5 [facility] Comment on above: Performed By: #### B MPX, CDP, TROPI, MG ####[facility] [address] [place], [place] [id number])[phone] Director: Rafa Prieto MD MCHC (RBC) [Mass/Vol] 30.1 g/dL Normal 28.4-34.8 [facility] Comment on above: Performed By: #### B MPX, CDP, TROPI, MG ####[facility] [address] [place], [place] [id number])[phone] Director: Rafa Prieto MD MCV (RBC) [Entitic vol] 80.5 fL Low 82.6-102.9 [facility] Comment on above: Performed By: #### B MPX, CDP, TROPI, MG ####[facility] [address]ow[address]rmxmhhz1783 [place], [place] [id number])[phone] Director: Rafa Prieto MD NRBC Automated 0.0 per 100 WBC Normal 0.0 [facility] Comment on above: Performed By: #### B MPX, CDP, TROPI, MG ####[facility] [address]cpbjk4[address] [place], [place] [id number])[phone] Director: Rafa Prieto MD Platelet mean volume (Bld) [Entitic vol] 11.0 fL Normal 8.1-13.5 [facility] Comment on above: Performed By: #### B MPX, CDP, TROPI, MG ####[facility] [address]zqulpk4592 [place], [place] [address])[phone] Director: Rafa Prieto MD Platelets (Bld) [#/Vol] 246 10*3/uL Normal 138-453 [facility] Comment on above: Performed By: #### B MPX, CDP, TROPI, MG ####[facility] [address] [place], [place] [id number])[phone] Director: Rafa Prieto MD RBC (Bld) [#/Vol] 5.08 10*6/uL Normal 4.21-5.77 [facility] Comment on above: Performed By: #### B MPX, CDP, TROPI, MG ####[facility] S[address]uoilmb0406 [place], [place] [id number])[phone] Director: Rafa Prieto MD WBC (Bld) [#/Vol] 7.4 10*3/uL Normal 3.5-11.3 [facility] Comment on above: Performed By: #### B MPX, CDP, TROPI, MG ####[place], [place] [address])[phone] Director: Rafa Prieto MD Abs. Basophil 0.00 k/uL Normal 0.0-0.2 [facility] Comment on above: Performed By: #### T ROPI #### [place] [address] [employer]: Rafa Prieto MD Abs.Imm.Granulocyte 0.00 k/uL Normal 0.00-0.30 [facility] Comment on above: Performed By: #### T ROPI #### [place] [address] [employer]r: Rafa Prieto MD Abs.Neutrophil (Seg) 5.76 k/uL Normal 1.8-7.7 [facility] Comment on above: Performed By: #### T ROPI #### [place] [address] [employer]r: Rafa Prieto MD Basophils/100 WBC (Bld) 0 % Normal 0-2 [facility] Comment on above: Performed By: #### T ROPI #### [place] [address] [employer]r: Rafa Prieto MD Eosinophils (Bld) [#/Vol] 0.00 10*3/uL Normal 0.0-0.4 [facility] Comment on above: Performed By: #### T ROPI #### [address] [address] [employer]: Rafa Prieto MD Eosinophils/100 WBC (Bld) 0 % Low 1-4 [facility] Comment on above: Performed By: #### T ROPI #### [address] [address] [employer] Wirer: Rafa Prieto MD Immature granulocytes/100 WBC (Bld) 0 % Normal 0 [facility] Comment on above: Performed By: #### T ROPI #### [address] [address] [employer] Wirer: Rafa Prieto MD Lymphocytes (Bld) [#/Vol] 1.28 10*3/uL Normal 1.0-4.8 [facility] Comment on above: Performed By: #### T ROPI #### [address] [address] [employer]r: Rafa Prieto MD Lymphocytes/100 WBC (Bld) 16 % Low 24-44 [facility] Comment on above: Performed By: #### T ROPI #### [address] [address] [employer]r: Rafa Prieto MD Monocytes (Bld) [#/Vol] 0.96 10*3/uL High 0.1-0.8 [facility] Comment on above: Performed By: #### T ROPI #### [address] [address] [employer]r: Rafa Prieto MD Monocytes/100 WBC (Bld) 12 % High 1-7 [facility] Comment on above: Performed By: #### T ROPI #### [address] [address] Switchboard Wirer: Rafa Prieto MD Morphology Rancho (Bld) [Interp] ANISOCYTOSIS PRESENT Normal [facility] Comment on above: Result Comment: MICR OCYTOSIS PRESENT Performed By: #### T ROPI #### [address] [address] Switchboard Wirer: Rafa Prieto MD Neutrophil (Seg) 72 % High 36-66 [facility] Comment on above: Performed By: #### T ROPI #### [address] [address] Switchboard Wirer: Rafa Prieto MD Nucleated RBC'S 1 per 100 WBC High 0 [facility] Comment on above: Performed By: #### T ROPI #### [address] [id number] Switchboard Wirer: Rafa Prieto MD Erythrocyte distribution width (RBC) [Ratio] 15.9 % High 11.8-14.4 [facility] Comment on above: Performed By: #### T ROPI #### [address] [address] Switchboard Wirer: Rafa Prieto MD Hematocrit (Bld) [Volume fraction] 41.5 % Normal 40.7-50.3 [facility] Comment on above: Performed By: #### T ROPI #### [address] [address] Switchboard Wirer: Rafa Prieto MD Hemoglobin (Bld) [Mass/Vol] 12.7 g/dL Low 13.0-17.0 [facility] Comment on above: Performed By: #### T ROPI #### [address] [address] Switchboard Wirer: Rafa Prieto MD MCH (RBC) [Entitic mass] 24.3 pg Low 25.2-33.5 [facility] Comment on above: Performed By: #### T ROPI #### [address] [address] Switchboard Wirer: aRfa Prieto MD MCHC (RBC) [Mass/Vol] 30.6 g/dL Normal 28.4-34.8 [facility] Comment on above: Performed By: #### T ROPI #### [facility] [employer] [address] [place] [address] Switchboard Wirer: Rafa Prieto MD MCV (RBC) [Entitic vol] 79.5 fL Low 82.6-102.9 [facility] Comment on above: Performed By: #### T ROPI #### [address] [address] Switchboard Wirer: Rafa Prieto MD NRBC Automated 0.3 per 100 WBC High 0.0 [facility] Comment on above: Performed By: #### T ROPI #### [address] [address] Switchboard Wirer: Rafa Prieto MD Platelet mean volume (Bld) [Entitic vol] 10.9 fL Normal 8.1-13.5 [facility] Comment on above: Performed By: #### T ROPI #### [address] [address] Switchboard Wirer: Rafa Prieto MD Platelets (Bld) [#/Vol] 265 10*3/uL Normal 138-453 [facility] Comment on above: Performed By: #### T ROPI #### [address] [address] Switchboard Wirer: Rafa Prieto MD RBC (Bld) [#/Vol] 5.22 10*6/uL Normal 4.21-5.77 [facility] Comment on above: Performed By: #### T ROPI #### [address] [address] Switchboard Wirer: Rafa Prieto MD WBC (Bld) [#/Vol] 8.0 10*3/uL Normal 3.5-11.3 [facility] Comment on above: Performed By: #### T ROPI #### [address] [address] Switchboard Wirer: Rafa Prieto MD Glucose,Whole Bloodon 2023 Glucose [Mass/Vol] 72 mg/dL Low 75-110 [facility] Glucose [Mass/Vol] 60 mg/dL Low 75-110 [facility] Glucose [Mass/Vol] 44 mg/dL Low 75-110 [facility] Comment on above: Result Comment: Alesia icaonofre Noted Glucose [Mass/Vol] 91 mg/dL Normal 75-110 [facility] Glucose [Mass/Vol] 66 mg/dL Low 75-110 [facility] Glucose [Mass/Vol] 42 mg/dL Low 75-110 [facility] Comment on above: Result Comment: Alesia icaonofre Noted Glucose [Mass/Vol] 124 mg/dL High -110 [facility] Heparin Anti-Xaon 01-01-2024 Heparin Anti-Xa 0.97 IU/L Normal [facility] Comment on above: Performed By: #### H EPXA #### [facility] [address] [place] [address] Switchboard Wirer: Rafa Prieto MD Heparin Anti-Xa 0.40 IU/L Normal [facility] Comment on above: Performed By: #### H EPXA, PTT #### [address] [address] Switchboard Wirer: Rafa Prieto MD Heparin Anti-Xa 0.32 IU/L Normal [facility] Comment on above: Performed By: #### H EPXA, PTT #### [facility] [employer] [address] [place] [address] Switchboard Wirer: Rafa Prieto MD Heparin Anti-Xa 0.29 IU/L Normal [facility] Comment on above: Performed By: #### T ROPI #### [address] [address] Switchboard Wirer: Rafa Prieto MD MRSA, DNA, Nasalon MRSA, DNA, Nasal Negative Normal NEG [facility] Comment on above: Result Comment: NEGA TIVE: MRSA DNA not detected by nucleic acid amplification. Results should be used as an adjunct to nosocomial control efforts to identify patients needing enhanced precautions. The test is not intended to identify patients with staphylococcal infections. Results should not be used to guide or monitor treatment for MRSA infections. Performed By: #### M RSANO ####[facility] [address] [place] [address] Lab Director: Rafa Prieto MD Specimen Description .NASAL SWAB Normal [facility] Comment on above: Performed By: #### M RSANO ####[facility] [address] [place] [address] [phone] Director: Rafa Prieto MD Magnesiumon 01-01-2024 Magnesium [Mass/Vol] 1.7 mg/dL Normal 1.6-2.6 [facility] Comment on above: Performed By: #### B MPX, CDP, TROPI, MG ####[facility] [address] [place] [address] Lab Director: Rafa Prieto MD Troponinon 01-01-2024 Troponin, High Sens 103 ng/L Critically high 0-22 [facility] Comment on above: Result Comment: High Sensitivity Troponin values cannot be compared with other Troponin methodologies. Previous Alert Value Reported Performed By: #### B MPX, CDP, TROPI, MG ####[facility] [address] [place] [address] Lab Director: Rafa Prieto MD Troponin, High Sens 107 ng/L Critically high 022 [facility] Comment on above: Result Comment: High Sensitivity Troponin values cannot be compared with other Troponin methodologies. Previous Alert Value Reported Performed By: #### T ROPI ####[facility] [address] [place] [address] [phone] Director: Rafa Prieto MD Troponin, High Sens 107 ng/L Critically high 022 [facility] Comment on above: Result Comment: High Sensitivity Troponin values cannot be compared with other Troponin methodologies. Previous Alert Value Reported Performed By: #### T ROPI #### [employer] [address] [place] [address] Switchboard Wirer: Rafa Prieto MD Troponin, High Sens 104 ng/L Critically high 0-22 [facility] Comment on above: Result Comment: High Sensitivity Troponin values cannot be compared with other Troponin methodologies. Performed By: #### T ROPI #### [facility] [address] [place] [address] Switchboard Wirer: Rafa Prieto MD Type + Screenon 01-01-2024 Type + Screen Sample Expiration 01/04/2024,2359 Arm Band Number [id number] ABO/Rh(D) A POSITIVE Antibody Screen NEGATIVE Normal [facility] Comment on above: Performed By: #### T YS ####[facility] Network[address] [place] [address] Lab Director: Rafa Prieto MD Urinalysis, Routineon 2023 Bilirubin, SemiQt,Ur Negative Normal NEG [facility] Comment on above: Performed By: #### H EPXA, PTT #### [facility] [address] [place] [address] Switchboard Wirer: Rafa Prieto MD Blood, Urine LARGE Abnormal NEG [facility] Comment on above: Performed By: #### H EPXA, PTT #### [employer] [address] [place] [address] Switchboard Wirer: Rafa Prieto MD Clarity (U) Clear Normal CLEAR [facility] Comment on above: Performed By: #### H EPXA, PTT #### [employer] [address] [place] [address] Switchboard Wirer: Rafa Prieto MD Color (U) Dark Yellow Abnormal YEL [facility] Comment on above: Performed By: #### H EPXA, PTT #### [employer] [address] [place] [address] Switchboard Wirer: Rafa Prieto MD Glucose Ql (U) Negative Normal NEG [facility] Comment on above: Performed By: #### H EPXA, PTT #### [facility] [employer] [address] [place] [address] Switchboard Wirer: Rafa Prieto MD Ketones Ql (U) Negative Normal NEG [facility] Comment on above: Performed By: #### H EPXA, PTT #### [facility] [employer] [address] [place] [address] Switchboard Wirer: Rafa Prieto MD Leukocyte esterase Test strip Ql (U) MODERATE Abnormal NEG [facility] Comment on above: Performed By: #### H EPXA, PTT #### [address] [address] Switchboard Wirer: Rafa Prieto MD Nitrite,Ur Negative Normal NEG [facility] Comment on above: Performed By: #### H EPXA, PTT #### [address] [address] Switchboard Wirer: Rafa Prieto MD PH,Ur 5.5 Normal 5.0-8.0 [facility] Comment on above: Performed By: #### H EPXA, PTT #### [facility] [employer] [address] [place] [address] Switchboard Wirer: Rafa Prieto MD Protein Ql (U) TRACE Abnormal NEG [facility] Comment on above: Performed By: #### H EPXA, PTT #### [facility] [employer] [address] [place] [address] Switchboard Wirer: Rafa Prieto MD Spec. [place],Ur 1.024 Normal 1.005-1.030 [facility] Comment on above: Performed By: #### H EPXA, PTT #### [facility] [address] Switchboard Wirer: Rafa Prieto MD Urobilinogen,Ur ELEVATED Normal 0.0-1.0 [facility] Comment on above: Performed By: #### H EPXA, PTT #### [address] [address] Switchboard Wirer: Rafa Prieto MD Urinalysis,Microon 4 Epithelial cells LM Ql (Urine sed) 5 TO 10 Normal 0-5 [facility] Comment on above: Performed By: #### H EPXA, PTT #### [address] [address] Switchboard Wirer: Rafa Prieto MD Urine RBC's TOO NUMEROUS TO COUNT Normal 0-2 [facility] Comment on above: Performed By: #### H EPXA, PTT #### [address] [address] Switchboard Wirer: Rafa Prieto MD Urine WBC's 10 TO 20 Normal 0-5 [facility] Comment on above: Performed By: #### H EPXA, PTT #### [address] [address] Switchboard Wirer: Rafa Prieto MD DENNY Antinuclear Antibodieson 08-09-2023 Antinuclear Abs, IFA Negative Normal . [facility] Comment on above: Result Comment: Nega tive <1:80 Borderline 1:80 Positive >1:80 ICAP nomenclature: AC-0 For more information about Hep-2 cell patterns use ANApatterns.org, the official website for the International Consensus on Antinuclear Antibody (DENNY) Patterns (ICAP). Performed at: [facility] [address] [id number] Switchboard Wirer: Lester Nunez PhD, Phone: [phone] Performed By: #### A NA, [id number] #### [facility] , #### T4F, CRP, CK, CMP, ESR, CBC, TSH3 #### [address] C-Reactive Proteinon 023 C-Reactive Protein 0.5 mg/dL Normal 0.0-0.5 [facility] Comment on above: Performed By: #### A NA, [id number] #### [facility] , #### T4F, CRP, CK, CMP, ESR, CBC, TSH3 #### [address] Complete Blood Count Auto Di ffon 08-09-2023 Basophils (Bld) [#/Vol] 0.0 10*3/uL Normal 0.0-0.2 [facility] Comment on above: Performed By: #### A NA, [id number] #### [facility] , #### T4F, CRP, CK, CMP, ESR, CBC, TSH3 #### [place] [address] [place] Basophils/100 WBC (Bld) 0.6 % Normal . [facility] Comment on above: Performed By: #### A NA, [id number] #### [facility] , #### T4F, CRP, CK, CMP, ESR, CBC, TSH3 #### [place] [address] [place] Eosinophils (Bld) [#/Vol] 0.1 10*3/uL Normal 0.0-0.45 [facility] Comment on above: Performed By: #### A NA, [id number] #### [facility] , #### T4F, CRP, CK, CMP, ESR, CBC, TSH3 #### [place] [address] [place] Eosinophils/100 WBC (Bld) 1.4 % Normal . [facility] Comment on above: Performed By: #### A NA, [id number] #### [facility] , #### T4F, CRP, CK, CMP, ESR, CBC, TSH3 #### [address] Erythrocyte distribution width (RBC) [Ratio] 13.1 % Normal 12.0-14.8 [facility] Comment on above: Performed By: #### A NA, [id number] #### [facility] , #### T4F, CRP, CK, CMP, ESR, CBC, TSH3 #### [address] Hematocrit (Bld) [Volume fraction] 43.8 % Normal 38.8-50.0 [facility] Comment on above: Performed By: #### A NA, [id number] #### [facility] , #### T4F, CRP, CK, CMP, ESR, CBC, TSH3 #### [address] Hemoglobin (Bld) [Mass/Vol] 14.4 g/dL Normal 13.0-17.0 [facility] Comment on above: Performed By: #### A NA, [id number] #### [facility] , #### T4F, CRP, CK, CMP, ESR, CBC, TSH3 #### [address] Lymphocytes (Bld) [#/Vol] 1.7 10*3/uL Normal 1.00-4.8 [facility] Comment on above: Performed By: #### A NA, [id number] #### [facility] , #### T4F, CRP, CK, CMP, ESR, CBC, TSH3 #### [address] Lymphocytes/100 WBC (Bld) 24.1 % Normal . [facility] Comment on above: Performed By: #### A NA, HLAB27 #### [facility] , #### T4F, CRP, CK, CMP, ESR, CBC, TSH3 #### [address] MCH (RBC) [Entitic mass] 27.6 pg Normal 27.5-35.2 [facility] Comment on above: Performed By: #### A NA, HLAB27 #### [facility] , #### T4F, CRP, CK, CMP, ESR, CBC, TSH3 #### [address] MCV (RBC) [Entitic vol] 84.1 fL Normal 83.5-101 [facility] Comment on above: Performed By: #### A NA, [id number] #### [facility] , #### T4F, CRP, CK, CMP, ESR, CBC, TSH3 #### [address] Mean Corpuscular HGB Conc 32.8 g/dL Normal 32.5-35.6 [facility] Comment on above: Performed By: #### A NA, HLAB27 #### [facility] , #### T4F, CRP, CK, CMP, ESR, CBC, TSH3 #### [address] Monocytes (Bld) [#/Vol] 0.4 10*3/uL Normal 0.0-0.8 [facility] Comment on above: Performed By: #### A NA, [id number] #### [facility] , #### T4F, CRP, CK, CMP, ESR, CBC, TSH3 #### [address] Monocytes/100 WBC (Bld) 5.9 % Normal . [facility] Comment on above: Performed By: #### A NA, HLAB27 #### [facility] , #### T4F, CRP, CK, CMP, ESR, CBC, TSH3 #### [facility] [address] [place] [address] Neutrophils (Bld) [#/Vol] 4.9 10*3/uL Normal 1.8-7.7 [facility] Comment on above: Performed By: #### A NA, [id number] #### [facility] , #### T4F, CRP, CK, CMP, ESR, CBC, TSH3 #### [facility] [address] [place] [address] [place] Neutrophils/100 WBC (Bld) 68.0 % Normal . [facility] Comment on above: Performed By: #### A NA, [id number] #### [facility] , #### T4F, CRP, CK, CMP, ESR, CBC, TSH3 #### [facility] [address] [place] [address] NRBC% 0.2 /100{WBC} Normal 0-0.5 [facility] Comment on above: Performed By: #### A NA, [id number] #### [facility] , #### T4F, CRP, CK, CMP, ESR, CBC, TSH3 #### [address] Platelet mean volume (Bld) [Entitic vol] 10.9 fL High 6.6-10.1 [facility] Comment on above: Performed By: #### A NA, [id number] #### [facility] , #### T4F, CRP, CK, CMP, ESR, CBC, TSH3 #### [facility] [address] [place] [address] [place] Platelets (Bld) [#/Vol] 216 10*3/uL Normal 150-450 [facility] Comment on above: Performed By: #### A NA, [id number] #### [facility] , #### T4F, CRP, CK, CMP, ESR, CBC, TSH3 #### [facility] [address] [place] [address] [place] RBC (Bld) [#/Vol] 5.20 10*6/uL Normal 3.90-5.60 [facility] Comment on above: Performed By: #### A NA, [id number] #### [facility] , #### T4F, CRP, CK, CMP, ESR, CBC, TSH3 #### [address] WBC (Bld) [#/Vol] 7.1 10*3/uL Normal 4.1-10.5 [facility] Comment on above: Performed By: #### A NA, [id number] #### [facility] , #### T4F, CRP, CK, CMP, ESR, CBC, TSH3 #### [address] Comprehensive Metabolic Pane chery 08-09-2023 Albumin [Mass/Vol] 4.6 g/dL Normal 3.5-5.7 [facility] Comment on above: Performed By: #### A NA, [id number] #### [facility] , #### T4F, CRP, CK, CMP, ESR, CBC, TSH3 #### [facility] [address] [place] [address] Albumin/Globulin [Mass ratio] 1.3 {ratio} Normal [facility] Comment on above: Performed By: #### A NA, [id number] #### [facility] , #### T4F, CRP, CK, CMP, ESR, CBC, TSH3 #### [facility] [address] [place] [address] ALP [Catalytic activity/Vol] 44 U/L Normal 34-104 [facility] Comment on above: Performed By: #### A NA, [id number] #### [facility] , #### T4F, CRP, CK, CMP, ESR, CBC, TSH3 #### [address] ALT [Catalytic activity/Vol] 50 U/L Normal 7-52 [facility] Comment on above: Performed By: #### A NA, [id number] #### [facility] , #### T4F, CRP, CK, CMP, ESR, CBC, TSH3 #### [address] Anion gap [Moles/Vol] 14.9 mmol/L Normal 6.0-15.0 [facility] Comment on above: Performed By: #### A NA, HLAB27 #### [facility] , #### T4F, CRP, CK, CMP, ESR, CBC, TSH3 #### [facility] [address] [place] [address] AST [Catalytic activity/Vol] 33 U/L Normal 13-39 [facility] Comment on above: Performed By: #### A NA, [id number] #### [facility] , #### T4F, CRP, CK, CMP, ESR, CBC, TSH3 #### [facility] [address] [place] [address] Bilirubin [Mass/Vol] 0.4 mg/dL Normal 0.3-1.0 [facility] Comment on above: Performed By: #### A NA, HLAB27 #### [facility] , #### T4F, CRP, CK, CMP, ESR, CBC, TSH3 #### [facility] [address] [place] [address] Calcium [Mass/Vol] 10.2 mg/dL Normal 8.6-10.3 [facility] Comment on above: Performed By: #### A NA, HLAB27 #### [facility] , #### T4F, CRP, CK, CMP, ESR, CBC, TSH3 #### [facility] [address] [place] [address] Chloride [Moles/Vol] 97 mmol/L Low 98-107 [facility] Comment on above: Performed By: #### A NA, HLAB27 #### [facility] , #### T4F, CRP, CK, CMP, ESR, CBC, TSH3 #### [address] CO2 [Moles/Vol] 29.7 mmol/L Normal 21.0-31.0 [facility] Comment on above: Performed By: #### A NA, HLAB27 #### [facility] , #### T4F, CRP, CK, CMP, ESR, CBC, TSH3 #### [address] Creatinine [Mass/Vol] 0.80 mg/dL Normal 0.70-1.30 [facility] Comment on above: Performed By: #### A NA, HLAB27 #### [facility] , #### T4F, CRP, CK, CMP, ESR, CBC, TSH3 #### [address] GFR/1.73 sq M.predicted MDRD (S/P/Bld) [Vol rate/Area] mL/min/{1.73_m2} [facility] Comment on above: Performed By: #### A NA, [id number] #### [facility] , #### T4F, CRP, CK, CMP, ESR, CBC, TSH3 #### [address] Globulin (S) [Mass/Vol] 3.5 g/dL [facility] Comment on above: Performed By: #### A NA, HLAB27 #### [facility] , #### T4F, CRP, CK, CMP, ESR, CBC, TSH3 #### [address] Glucose [Mass/Vol] 157 mg/dL High 70-100 [facility] Comment on above: Result Comment: [facility] Glucose Reference Range is dependent on time and content of last meal. Glucose of more than 200 mg/dL in a nonstressed, ambulatory subject supports the diagnosis of Diabetes Mellitus. ADA recommended reference range Performed By: #### A NA, [id number] #### [facility] , #### T4F, CRP, CK, CMP, ESR, CBC, TSH3 #### [facility] [address] Potassium [Moles/Vol] 4.6 mmol/L Normal 3.5-5.1 [facility] Comment on above: Performed By: #### A NA, [id number] #### [facility] , #### T4F, CRP, CK, CMP, ESR, CBC, TSH3 #### [facility] [address] [place] [address] Protein [Mass/Vol] 8.1 g/dL Normal 6.4-8.9 [facility] Comment on above: Performed By: #### A NA, HLAB27 #### [facility] , #### T4F, CRP, CK, CMP, ESR, CBC, TSH3 #### [address] Sodium [Moles/Vol] 137 mmol/L Normal 136-145 [facility] Comment on above: Performed By: #### A NA, HLAB27 #### [facility] , #### T4F, CRP, CK, CMP, ESR, CBC, TSH3 #### [facility] [address] [place] [address] Urea nitrogen [Mass/Vol] 10 mg/dL Normal 7-25 [facility] Comment on above: Performed By: #### A NA, HLAB27 #### [facility] , #### T4F, CRP, CK, CMP, ESR, CBC, TSH3 #### [facility] [address] [place] [address] Creatine Kinaseon 08-09-2023 CK [Catalytic activity/Vol] 95 U/L Normal 30-223 [facility] Comment on above: Result Comment: PERF ORMED BY: [place] [address] PATHOLOGIST BOTTOM TURNER JOSEPH SAUCEDA M.D. Performed By: #### A NA, [id number] #### [facility] , #### T4F, CRP, CK, CMP, ESR, CBC, TSH3 #### [address] Erythrocyte Sedimentation Ra baldo 08-09-2023 ESR (Bld) [Velocity] 30 mm/h High 0-19 [facility] Comment on above: Result Comment: PERF ORMED BY: [place] [address] PATHOLOGIST BOTTOM TURNER JOSEPH SAUCEDA M.D. Performed By: #### A NA, [id number] #### [facility] , #### T4F, CRP, CK, CMP, ESR, CBC, TSH3 #### [address] Free T4 (Free Thyroxine)on 1 Free T4 [Mass/Vol] 0.87 ng/dL Normal 0.61-1.12 [facility] Comment on above: Performed By: #### A NA, HLAB27 #### [facility] , #### T4F, CRP, CK, CMP, ESR, CBC, TSH3 #### [address] HLA B27 Disease Associationo n 08-09-2023 HLA B27 Disease Association Positive Normal . [facility] Comment on above: Result Comment: HLA- B*27 Positive This patient is positive for HLA-B*27. This procedure rules out the B*27:06 and 27:09 alleles, which the literature suggests are not associated with spondyloarthropathies. B27 allele interpretation for all loci based on IMGT/HLA database version 3.44 This test was developed and its performance characteristics determined by [facility]. It has not been cleared or approved by the Food and Drug Administration. [facility] CLIA ID Number [id number] THis test was performed using Polymerase Chain Reaction (PCR) and Sequence Specific Oligonucleotide Probes (SSOP) technique. Sequence Based Typing (SBT) may be used as a supplemental method when necessary. If you have questions, please call [facility] customer service at or email at [email or web address]. Performed at: [address] [place] [id number] Switchboard Wirer: Minerva Pearce PhD, Phone: [phone] PERFORMED BY: [place] [address] PATHOLOGIST BOTTOM TURNER JOSEPH SAUCEDA M.D. Performed By: #### A NA, [id number] #### [facility] , #### T4F, CRP, CK, CMP, ESR, CBC, TSH3 #### [facility] [address] [place] [address] Thyroid Stimulating Hormoneo n 08-09-2023 TSH Qn 2.42 m[IU]/L Normal 0.45-5.33 [facility] Comment on above: Result Comment: PERF ORMED BY: [place] [address] PATHOLOGIST BOTTOM TURNER JOSEPH SAUCEDA M.D. Performed By: #### A NA, [id number] #### [facility] , #### T4F, CRP, CK, CMP, ESR, CBC, TSH3 #### [facility] [address] [place] [address] XR thoracic spine 3V*on XR thoracic spine 3V* [facility] [place] [address] [place] [address] XRay Report Signed Patient: Vitaly Dobson MR#: [id number] : 1970 Acct:[id number] Age/Sex: 52 / M ADM Date: 08/09/23 Loc: ICXD Room: Type: [facility] Attending Dr: Edi Henriquez MD Copies to: Edi Henriquez MD Ordering Provider: Edi Henriquez MD Date of Service: 08/09/23 XR/XR lumbar spine 2-3V*: LOW BACK PAIN ([id number]) XR/XR thoracic spine 3V*: DISH VS ANKYLOSING SPONDYLITIS ([id number]) XR/XR si joints: LOW BACK PAIN CLINICAL DATA: Chronic pain throughout the spine. No recent injury. THORACIC SPINE - 3 views: COMPARISON: None AP, lateral and swimmer's views were obtained. Patient is kyphotic and could not lift chin. There is thoracolumbar dextroscoliotic curvature. There is no acute compression fracture or displacement. The pedicles are intact. There is ossification of the paraspinal ligaments and bridging syndesmophytes throughout the thoracic and cervical spine suggesting ankylosing spondylitis. There are no paraspinal soft tissue abnormalities. XR/XR lumbar spine 2-3V* IMPRESSION: SCOLIOSIS. FINDINGS SUGGESTING ANKYLOSING SPONDYLITIS. LUMBAR SPINE - 3 views COMPARISON: None AP as well as lateral lumbar and lumbosacral views were obtained. The bony structures are osteopenic. There is slight dextroscoliotic curvature. No acute fractures or displacement are noted. There are bridging syndesmophytes as well as fusion of the spinous processes (Dr. Baron). There is no disproportionate disc space narrowing. Left nephrolithiasis is suspected. IMPRESSION: SCOLIOSIS AND FINDINGS SUGGESTING ANKYLOSING SPONDYLITIS. INCIDENTAL LEFT NEPHROLITHIASIS. SI JOINTS - 3 views COMPARISON: None AP and bilateral oblique views were obtained. The bony structures are osteopenic. There is ankylosis of the SI joints on both sides. No acute fractures or dislocation are identified. There is slight axial narrowing of hip joint spaces and minimal marginal spurring. There are enthesophytes at the iliac crests, ischial tuberosities and trochanters. No soft tissue abnormalities are seen. IMPRESSION: FINDINGS SUGGESTING ANKYLOSING SPONDYLITIS. Impression dictated by: Vee Amanda M.D.08/09/2023 4:34 PM Dictation Location: [place] [address] Transcribed By: [facility] 08/09/23 1639 Dictated By: Vee Amanda MD 08/09/23 1608 Signed By: 08/09/23 3607 [facility] XR cervical spine 2-3Von XR cervical spine 2-3V [facility] [employer] Other XR cervical spine 2-3V [address] [facility] [employer] Other XR cervical spine 2-3V [place] [address] [employer] Other XR cervical spine 2-3V XRay Report [employer] Other XR cervical spine 2-3V Signed [employer] Other XR cervical spine 2-3V Patient: VITALY DOBSON MR#: [id number] [employer] Other XR cervical spine 2-3V : 1970 Acct:[id number] [employer] Other XR cervical spine 2-3V Age/Sex: 52 / M ADM Date: 07/28/23 [employer] Other XR cervical spine 2-3V Loc: [facility] [employer] Other XR cervical spine 2-3V Attending Dr: Semaj Avery D.O. [employer] Other XR cervical spine 2-3V Ordering Physician: Semaj Avery D.O. [employer] Other XR cervical spine 2-3V Date of Service: 07/28/23 [employer] Other XR cervical spine 2-3V Accession Number(s): [id number] [employer] Other XR cervical spine 2-3V cc: Semaj Avery D.O. [employer] Other XR cervical spine 2-3V [address] [place] [address] [employer] Other XR cervical spine 2-3V [place] [address] [employer] Other XR cervical spine 2-3V [employer] Other XR cervical spine 2-3V Patient Name: [employer] Other XR cervical spine 2-3V VITALY DOBSON [employer] Other XR cervical spine 2-3V MRN: [facility]:[id number] date: 1970 Sex: M [employer] Other XR cervical spine 2-3V Assigned Patient Location: [facility] [employer] Other XR cervical spine 2-3V Current Patient Location: [facility] [employer] Other XR cervical spine 2-3V Accession/Order Number: [id number] [employer] Other XR cervical spine 2-3V Exam Date: 07/28/2023 11:15 Report Date: 07/28/2023 12:14 [employer] Other XR cervical spine 2-3V At the request of: [employer] Other XR cervical spine 2-3V SEMAJ BALL [employer] Other XR cervical spine 2-3V EXAMINATION: XR cervical spine 2-3V, XR lumbar spine 2-3V, XR thoracic spine [employer] Other XR cervical spine 2-3V 2V [employer] Other XR cervical spine 2-3V HISTORY: Scoliosis M41.20, Cervical Spondylosis M47.812 [employer] Other XR cervical spine 2-3V COMPARISON: No relevant comparison available. [employer] Other XR cervical spine 2-3V FINDINGS: [employer] Other XR cervical spine 2-3V BONES: Cervical spine demonstrates marked left convex curvature and mild [employer] Other XR cervical spine 2-3V reversal of normal lordotic curvature. Suspect degenerative changes versus [employer] Other XR cervical spine 2-3V osseous bridging of the facet joints at most levels. No appreciable fracture [employer] Other XR cervical spine 2-3V or [employer] Other XR cervical spine 2-3V spondylolisthesis [employer] Other XR cervical spine 2-3V Thoracic spine demonstrates moderate left convex curvature and exaggerated [employer] Other XR cervical spine 2-3V kyphosis. No appreciable fracture or spondylolisthesis. [employer] Other XR cervical spine 2-3V Lumbar spine demonstrates mild curvature at the thoracolumbar junction. [employer] Other XR cervical spine 2-3V Straightening of the normal lordotic curvature, and multilevel marked [employer] Other XR cervical spine 2-3V degenerative facet arthropathy. Bone encroachment on the L4-5 and L5-S1 neural [employer] Other XR cervical spine 2-3V foramen. [employer] Other XR cervical spine 2-3V DISC SPACES: Calcification of the interspinous ligaments throughout. Cervical [employer] Other XR cervical spine 2-3V spine multilevel mild disc space narrowing. Thoracic spine multilevel mild [employer] Other XR cervical spine 2-3V disc [employer] Other XR cervical spine 2-3V space narrowing. Lumbar spine and multilevel mild-moderate disc space [employer] Other XR cervical spine 2-3V narrowing. [employer] Other XR cervical spine 2-3V PARASPINOUS: No paraspinous abnormality is seen. [employer] Other XR cervical spine 2-3V Negative [employer] Other XR cervical spine 2-3V XR/XR cervical spine 2-3V [employer] Other XR cervical spine 2-3V IMPRESSION: [employer] Other XR cervical spine 2-3V 1. Limited examination due to patient needing to be imaged in the standing [employer] Other XR cervical spine 2-3V position. [employer] Other XR cervical spine 2-3V 2. Multilevel scoliotic curvature of the cervical and thoracic spine. [employer] Other XR cervical spine 2-3V 3. Thoracic kyphosis. [employer] [facility] Other XR cervical spine 2-3V 4. Findings favor diffuse ankylosing spondylitis throughout the cervical, [employer] Other XR cervical spine 2-3V thoracic, lumbar spine. [employer] Other XR cervical spine 2-3V 5. Multilevel mild degenerative disc disease. [employer] Other XR cervical spine 2-3V 6. Marked degenerative facet arthropathy of lumbar spine. [employer] Other XR cervical spine 2-3V Electronically authenticated by: DAMI GOMEZ Date: 07/28/2023 12:14 [employer] Other XR cervical spine 2-3V Dictated By: Dami Gomez M.D. [employer] Other XR cervical spine 2-3V Signed By: 07/28/23 [facility] [employer] Other XR cervical spine 2-3V DD/ 1214 [employer] Other XR cervical spine 2-3V TD/TT: [employer]: [employer] Other XR lumbar spine 2-3Von 07-28 XR lumbar spine 2-3V Accession Number(s): [id number] [employer] Other XR lumbar spine 2-3V Accession/Order Number: [id number] [employer] Other XR lumbar spine 2-3V XR/XR lumbar spine 2-3V [employer] Other XR thoracic spine 2Von 07-28 XR thoracic spine 2V Accession Number(s): [id number] [employer] Other XR thoracic spine 2V Accession/Order Number: [id number] [employer] Other XR thoracic spine 2V XR/XR thoracic spine 2V [employer] Other LIPID PROFILE SEND OUTon Cholesterol [Mass/Vol] 259 mg/dL Critically high 100-199 [facility] Comment on above: Performed By: #### B MPLC, LIPIDLC #### [facility] [address] [place] [address] [address] David Brown Cholesterol in HDL [Mass/Vol] 16 mg/dL Critically low >39 [facility] Comment on above: Performed By: #### B MPLC, LIPIDLC #### [facility] [address] [place] [address] [address] David Brown Comment: Normal [facility] Comment on above: Performed By: #### B MPLC, LIPIDLC #### [facility] [address] [place] [address] Dr. David Brown LDL Chol. Calc. ([facility]) Comment Abnormal 0-99 [facility] Comment on above: Result Comment: Trig lyceride result indicated is too high for an accurate LDL cholesterol estimation. Performed By: #### B MPLC, LIPIDLC #### [facility] [address] [place] [address] [address] David Brown Triglyceride [Mass/Vol] 2070 mg/dL Invalid Interpretation Code 0-149 [facility] Comment on above: Result Comment: Resu lts confirmed on dilution. Performed By: #### B MPLC, LIPIDLC #### [facility] [address] [place] [address] [address] David Brown VLDL Cholesterol, Calc Comment Abnormal 5-40 [facility] Comment on above: Result Comment: The calculation for the VLDL cholesterol is not valid when triglyceride level is >800 mg/dL. Performed By: #### B MPLC, LIPIDLC #### [facility] [address] [place] [address] Dr. David Brown PROF CHEM 8 ([facility]) SEND OUTon 02-04-2023 Calcium [Mass/Vol] 10.0 mg/dL Normal 8.7-10.2 [facility] Comment on above: Performed By: #### B MPLC, LIPIDLC #### [facility] [address] [place] [address] Dr. David Brown Chloride [Moles/Vol] 91 mmol/L Critically low 96-106 [facility] Comment on above: Performed By: #### B MPLC, LIPIDLC #### [facility] [address] [place] [address] Dr. David Brown CO2 [Moles/Vol] 24 mmol/L Normal 20-29 [facility] Comment on above: Performed By: #### B MPLC, LIPIDLC #### [facility] [address] [place] [address] Dr. David Brown Creatinine [Mass/Vol] 1.00 mg/dL Normal 0.76-1.27 [facility] Comment on above: Performed By: #### B MPLC, LIPIDLC #### [facility] [address] [place] [address] Dr. David Brown GFR/1.73 sq M.predicted among non-blacks MDRD (S/P/Bld) [Vol rate/Area] 90 mL/min/{1.73_m2} Normal >59 [facility] Comment on above: Performed By: #### B MPLC, LIPIDLC #### [facility] [address] [place] [address] Dr. David Brown Glucose [Mass/Vol] 205 mg/dL Critically high 70-99 [facility] Comment on above: Performed By: #### B MPLC, LIPIDLC #### [facility] [address] [place] [address] Dr. David Brown Potassium [Moles/Vol] 4.7 mmol/L Normal 3.5-5.2 [facility] Comment on above: Performed By: #### B MPLC, LIPIDLC #### [facility] [address] [place] [address] Dr. David Brown Sodium [Moles/Vol] 132 mmol/L Critically low 134-144 Th e [facility] Comment on above: Performed By: #### B MPLC, LIPIDLC #### [facility] [address] [place] [address] Dr. David Brown Urea nitrogen [Mass/Vol] 18 mg/dL Normal 6-24 [facility] Comment on above: Performed By: #### B MPLC, LIPIDLC #### [facility] [address] [place] [address] Dr. David Brown Urea nitrogen/Creatinine [Mass ratio] 18 mg/mg Normal 9-20 [facility] Comment on above: Performed By: #### B MPLC, LIPIDLC #### [facility] [address] [place] [address] Dr. David Brown CBC AUTO DIFFon 02-03-2023 BASO # 0.1 103/ul Normal 0.0-0.1 [facility] Comment on above: Performed By: #### C BC #### [facility] [address] [place] [address] Dr. David Brown Basophils/100 WBC (Bld) 0.6 % Normal 0.2-2.0 [facility] Comment on above: Performed By: #### C BC #### [facility] [address] [place] [address] Dr. David Brown EO # 0.2 103/ul Normal 0.0-0.7 [facility] Comment on above: Performed By: #### C BC #### [facility] [address] [place] [address] Dr. David Brown Eosinophils/100 WBC (Bld) 2.2 % Normal 0.9-7.0 [facility] Comment on above: Performed By: #### C BC #### [facility] [address] [place] [address] Dr. David Brown Erythrocyte distribution width (RBC) [Ratio] 12.7 % Normal 11.0-15.0 [facility] Comment on above: Performed By: #### C BC #### [facility] [address] [place] [address] Dr. David Brown Hematocrit (Bld) [Volume fraction] 43.6 % Normal 42.0-54.0 [facility] Comment on above: Performed By: #### C BC #### [facility] [address] [place] [address] Dr. David Brown Hemoglobin (Bld) [Mass/Vol] 14.6 g/dL Normal 14.0-18.0 [facility] Comment on above: Performed By: #### C BC #### [facility] [address] [place] [address] Dr. David Brown IG # 0.03 10e3/ul Normal 0.00-0.03 [facility] Comment on above: Performed By: #### C BC #### [facility] [address] [place] [address] Dr. David Brown IG % 0.3 % Normal 0.0-0.5 [facility] Comment on above: Performed By: #### C BC #### [facility] [address] [place] [address] Dr. David Brown LYMPH # 3.6 103/ul Normal 1.2-3.8 [facility] Comment on above: Performed By: #### C BC #### [facility] [address] [place] [address] Dr. David Brown Lymphocytes/100 WBC (Bld) 37.8 % Normal 20.5-60.0 [facility] Comment on above: Performed By: #### C BC #### [facility] [address] [place] [address] Dr. David Brown MANUAL DIFF REQ NO Normal [facility] Comment on above: Performed By: #### C BC #### [facility] [address] [place] [address] Dr. David Brown MCH (RBC) [Entitic mass] 28.3 pg Normal 25.9-34.0 [facility] Comment on above: Performed By: #### C BC #### [facility] [address] [place] [address] Dr. David Brown MCHC (RBC) [Mass/Vol] 33.5 g/dL Normal 29.9-35.2 [facility] Comment on above: Performed By: #### C BC #### [facility] [address] [place] [address] Dr. David Brown MCV (RBC) [Entitic vol] 84.7 fL Normal 80.0-94.0 [facility] Comment on above: Performed By: #### C BC #### [facility] [address] [place] [address] Dr. David Brown MONO # 0.9 103/ul Critically high 0.3-0.8 [facility] Comment on above: Performed By: #### C BC #### [facility] [address] [place] [address] Dr. David Brown Monocytes/100 WBC (Bld) 9.6 % Normal 1.7-12.0 [facility] Comment on above: Performed By: #### C BC #### [facility] [address] [place] [address] Dr. David Brown NEUT # 4.8 103/ul Normal 1.4-6.5 [facility] Comment on above: Performed By: #### C BC #### [facility] [address] [place] [address] Dr. David Brown Neutrophils/100 WBC (Bld) 49.5 % Normal 43.0-75.0 [facility] Comment on above: Performed By: #### C BC #### [facility] [address] [place] [address] Dr. David Brown Platelet mean volume (Bld) [Entitic vol] 12.0 fL Normal 9.5-13.5 [facility] Comment on above: Performed By: #### C BC #### [facility] [address] [place] [address] Dr. David Brown PLT 254 103/ul Normal 150-450 [facility] Comment on above: Performed By: #### C BC #### [facility] [address] [place] [address] [address] David Brown RBC 5.15 106/ul Normal 4.70-6.10 [facility] Comment on above: Performed By: #### C BC #### [facility] [address] [place] [address] Dr. David Brown WBC 9.6 103/ul Normal 4.0-11.0 [facility] Comment on above: Performed By: #### C BC #### [facility] [address] [place] [address] Dr. David Brown GLYCOHEMOGLOBIN A1Con 2022 ADA RECOMMENDATION SEE BELOW Normal The [facility] Comment on above: Result Comment: ADA RECOMMENDED LIMIT 4.0 - 6.0 ADA THERAPEUTIC TARGET < 7.0 ACTION SUGGESTED > 7.0 Performed By: #### A 1C #### [facility] [address] [place] [address] Dr. David Brown Glucose [Mass/Vol] 212 mg/dL Normal [facility] Comment on above: Performed By: #### A 1C #### [facility] [address] [place] [address] Dr. David Brown HbA1c (Bld) [Mass fraction] 9.0 % Critically high 4.5-6.2 [facility] Comment on above: Performed By: #### A 1C #### [facility] [address] [place] [address] Dr. David Brown MICROALBUMIN, RAND URon 03- mALB 5.5 mg/L Normal <=30.0 [facility] Comment on above: Performed By: #### M ALBR #### [facility] [address] [place] [address] Dr. David Brown GLYCOHEMOGLOBIN A1Con 2021 ADA RECOMMENDATION SEE BELOW Normal [facility] Comment on above: Result Comment: ADA RECOMMENDED LIMIT 4.0 - 6.0 ADA THERAPEUTIC TARGET < 7.0 ACTION SUGGESTED > 7.0 Performed By: #### A 1C #### [facility] [address] [place], [place] [address] Dr. David Brown Glucose [Mass/Vol] 194 mg/dL Normal [facility] Comment on above: Performed By: #### A 1C #### [facility] [address] [place], [place] [address] Dr. David Brown HbA1c (Bld) [Mass fraction] 8.4 % Critically high 4.5-6.2 [facility] Comment on above: Performed By: #### A 1C #### [facility] [address] [place], [place] [address] Dr. David Brown Vital Signs Date Time Vital Sign Value Performing Clinician Facility 07-28-2023 09:30-0400 Body height 160.02 cm Semaj Ball Other [employer] Other 07-28-2023 09:30-0400 Body mass index (BMI) [Ratio] 47.33 kg/m2 Semaj Ball Other [employer] Other 07-28-2023 09:30-0400 Body weight 121.2 kg Semaj Ball Other [employer] Other 07-28-2023 09:30-0400 Diastolic blood pressure 87 mm[Hg] Semaj Ball Other [employer] Other 07-28-2023 09:30-0400 Respiratory rate 12 /min Semaj Ball Other [employer] Other 07-28-2023 09:30-0400 Systolic blood pressure 132 mm[Hg] Semaj Ball Other [employer] Other 01-25-2023 12:30-0400 Body height 160.02 cm Semaj Ball Other [employer] Other 01-25-2023 12:30-0400 Body mass index (BMI) [Ratio] 47.75 kg/m2 Semaj Ball Other [employer] Other 01-25-2023 12:30-0400 Body weight 122.29 kg Semaj Avery Other [employer] Other 01-25-2023 12:30-0400 Diastolic blood pressure 82 mm[Hg] Semaj Avery Other [employer] Other 01-25-2023 12:30-0400 Respiratory rate 12 /min Semaj Avery Other [employer] Other 01-25-2023 12:30-0400 Systolic blood pressure 130 mm[Hg] Semaj Avery Other [employer] Other Encounters Encounter Date Encounter Type Care Provider Facility Start: 03-02-2024 End: 03-02-2024 ambulatory RODRICK R DOLCE Not Available Start: 01-01-2024 Evaluation and management of inpatient DELGADO GUIDO [facility] Start: 01-01-2024 End: 01-06-2024 Evaluation and management of inpatient SEMAJ AVERY [facility] Start: 11-18-2023 End: 11-18-2023 ambulatory RODRICK R DOLCE Not Available Start: 11-02-2023 End: 11-02-2023 ambulatory Semaj Avery Other [employer] Other Start: 11-02-2023 Telephone encounter Semaj Ball [facility] Start: 10-29-2023 End: 10-29-2023 ambulatory Semaj Bennie Other [employer] Other Start: 10-29-2023 Telephone encounter Semaj Ball [facility] Start: 10-27-2023 End: 10-27-2023 ambulatory Semaj Bennie Other [employer] Other Start: 10-27-2023 Telephone encounter Semaj Ball [facility] Start: 10-05-2023 End: 10-05-2023 ambulatory Semaj Avery Other [employer] Other Start: 10-05-2023 Telephone encounter Semaj Bennie MILES [facility] Start: 08-09-2023 End: 08-09-2023 ambulatory Edi Henriquez Facility:[facility] Start: 07-28-2023 End: 07-28-2023 ambulatory Semaj Avery Other [employer] Other Start: 07-28-2023 Office outpatient vi sit 25 minutes Semaj Avery [facility] Start: 07-28-2023 Telephone encounter Semaj Avery GINGER [facility] Start: 02-04-2023 End: 02-04-2023 ambulatory Semaj Avery Other [employer] Other Start: 02-04-2023 Telephone encounter Semaj Avery GINGER [facility] Start: 02-03-2023 Telephone encounter Semaj Avery GINGER [facility] Start: 02-03-2023 End: 02-04-[address] SEMAJ AVERY [facility] Other Start: 01-25-2023 End: 01-25-2023 ambulatory Semaj Avery Other [employer] Other Start: 01-25-2023 Encounter for genera l adult medical examination without abnormal findings Semaj Avery [facility] Start: 01-25-2023 Initial preventive exam Semaj Trinidad onofre [facility] Start: 01-25-2023 Patient encounter procedure Semaj Avery [facility] Start: 08-07-2022 End: 08-08-[address] SEMAJ AVERY Facility:[facility] Procedures Date Procedure Procedure Detail Performing Clinician Start: 02-03-[address] ROOT IN [place] Comment on above: Performed By: #### P [facility] #### [facility] [address] [place] [address] Dr. David Brown Immunizations Immunization Date Immunization Notes Care Provider Fa cili 09-04-2022 influenza, injectabl e, quadrivalent, contains preservative Semaj Avery Other [employer] Other 09-04-2022 COVID-19 Pfizer (bivalent) Semaj Avery Other [employer] Other 09-04-2022 COVID-19 Pfizer (Pediatric) Semaj Avery Other [employer] Other 09-04-2022 influenza virus vaccine, split virus (incl. purified surface antigen) Semaj Avery Other [employer] Other 04-18-2022 zoster vaccine recombinant Semaj Avery Other [employer] Other 04-18-2022 zoster vaccine, live Benjami n Ball Other [employer] Other 02-13-2022 COVID-19 Vaccine Pfi zer - Documentation Purposes Only Semaj Avery Other [employer] Other 02-13-2022 Prevnar 20 Semaj Avery Other [employer] Other 02-13-2022 zoster vaccine recombinant Semaj Avery Other [employer] Other 02-13-2022 zoster vaccine, live Benjami n Ball Other [employer] Other 09-30-2021 COVID-19 Vaccine Pfi zer - Documentation Purposes Only Semaj Avery Other [employer] Other 02-11-2021 COVID-19 Vaccine Pfi zer - Documentation Purposes Only Semaj Avery Other [employer] Other 01-20-2021 COVID-19 Vaccine Pfi zer - Documentation Purposes Only Semaj Avery Other [employer] Other 07-22-2020 influenza virus vaccine, split virus (incl. purified surface antigen) Semaj Avery Other [employer] Other 09-13-2017 tetanus and diphther ia toxoids, adsorbed, preservative free, for adult use (5 Lf of tetanus toxoid and 2 Lf of diphtheria toxoid) Semaj Avery Other [employer] Other Payers Date Payer Category Payer Self-pay 1970 Unknown [id number] 2.16.84 [id number] 1970 Unknown [id number] 2.16.84 [id number] 1969 Unknown [id number] 2.16. [id number] 1969 Unknown [id number] 2.16. [id number] 1969 Unknown [id number] 2.16.84 [id number] 1969 Unknown [id number] 2.16.84 [id number] 1960 Medicaid [id number] 2. [id number] 1960 Medicare [id number] 2.1 [id number] Unknown [id number] 2.16.8 [id number] Social History Date Type Detail Facility Sex Assigned At [employer] Other Clinical Notes 01-25-2023 to 11-02-2023 Note Date & Type Note Facility 11-02-2023 Evaluation note Encounter Date Diagnosis Assessment Notes Oct, Ankylosing spondylitis of thoracolumbar region (ICD-10 - M45.5) [employer] Other 12-22-2023 Evaluation note* Encounter Date Diagnosis Assessment Notes Treatment Notes Treatment Clinical Notes Oct, Type 2 diabetes mellitus with hyperglycemia, without long-term current use of insulin (ICD-10 - E11.65) [employer] Other 11-28-2023 Evaluation note* Encounter Date Diagnosis Assessment Notes Treatment Notes Treatment Clinical Notes Sep, Type 2 diabetes mellitus with hyperglycemia, without long-term current use of insulin (ICD-10 - E11.65) [employer] Other 09-20-2023 Evaluation note* Encounter Date Diagnosis Assessment Notes Treatment Notes Treatment Clinical Notes Jul, Type 2 diabetes mellitus with hyperglycemia, without long-term current use of insulin (ICD-10 - E11.65) This patient is following a comprehensive diabetic treatment plan. They are checking their feet daily for calluses and nonhealing ulcers. They are being seen for yearly dilated eye examinations. Goals: SBP less than 130, LDL less than 100, FBS less than 140, AC and A1C less than 7%. They are checking their BS daily, will which are reviewed at the office visit. Continue regular routine monitoring of A1C,] Microalbumin, Dilated eye exam and Foot exam Stressed restricting calories/portions Increase COSTELLO to 6mg daily Jul, Primary hypertension (ICD-10 - I10) This patient is instructed to consume a healthy, low-fat, low-salt diet. They are also encouraged to continue exercise to achieve/maintain a normal BMI. Jul, Elevated cholesterol (ICD-10 - E78.00) Instructed on diet and exercise with continued statin therapy.Discussed the beneficial effects of lowering cholesterol in reducing the risk for cerebrovascular and cardiovascular disease. Jul, Ankylosing spondylitis of thoracolumbar region (ICD-10 - M45.5) Jul, Scoliosis (and kyphoscoliosis), idiopathic (ICD-10 - M41.20) Stretching exercises, heat/ice and continue Tylenol. Muscle relaxants at HS for sleep. Would benefit w/ lift chair for both sleeping and assisting in standing from sitting position. Jul, Cervical spondylosis (ICD-10 - M47.812) ROM exercises, heat/ice and Tylenol. Continue muscle relaxant at HS for sleep. XR and referral to pain management discussed Jul, Lumbar spondylosis (ICD-10 - M47.816) The patient is instructed to avoid bending, twisting or lifting. They are to use intermittent heat and ice as needed. They may schedule a massage or gentle manipulation. They may safely use Tylenol as needed. Jul, Muscle spasm (ICD-10 - M62.838) Heat/ice and Tylenol. Topical creams, lidocaine patches and muscle relaxants at [employer] Other 09-20-2023 NoteProcedure(s): XR cervical spine 2-3V [employer] Other 09-20-2023 [facility]Pro[facility]: [facility] 09-20-[facility]23 [facility]Procedure(s): [facility]23 [facility]Procedure: [facility] 09-20-2023 NoteProcedure(s): XR lumbar spine 2-[facility] Other 09-20-2023 NoteProcedure: XR lumbar spine 2-[facility] Other 03-30-2023 Evaluation note* Encounter Date Diagnosis Assessment Notes Treatment Notes Treatment Clinical Notes Jan, Mixed hyperlipidemia (ICD-10 - E78.2) [employer] Other 03-29-2023 Evaluation note* Encounter Date Diagnosis Assessment Notes Treatment Notes Treatment Clinical Notes Jan, Type 2 diabetes mellitus with hyperglycemia, without long-term current use of insulin (ICD-10 - E11.65) [employer] Other 03-20-2023 Evaluation note* Encounter Date Diagnosis Assessment Notes Treatment Notes Treatment Clinical Notes Jan, Type 2 diabetes mellitus with hyperglycemia, without long-term current use of insulin (ICD-10 - E11.65) This patient is following a comprehensive diabetic treatment plan. They are checking their feet daily for calluses and nonhealing ulcers. They are being seen for yearly dilated eye examinations. Goals: SBP less than 130, LDL less than 100, FBS less than 140, AC and A1C less than 7%. They are checking their BS daily, will which are reviewed at the office visit. A1C: [ ] Microalbumin: due Jan, Wellness examination (ICD-10 - Z00.00) Jan, Primary hypertension (ICD-10 - I10) This patient is instructed to consume a healthy, low-fat, low-salt diet. They are also encouraged to continue exercise to achieve/maintain a normal BMI. Jan, Scoliosis (and kyphoscoliosis), idiopathic (ICD-10 - M41.20) Stretching exercises, heat/ice and Tylenol. Continue Zanaflex Jan, Elevated cholesterol (ICD-10 - E78.00) Diet and exercise Jan, Cervical spondylosis (ICD-10 - M47.812) ROM exercises, ice/heat and Tylenol Jan, Muscle spasm (ICD-10 - M62.838) Continue Zanaflex, heat/ice and stretching Jan, Screening PSA (prostate specific antigen) (ICD-10 - Z12.5) PSA yearly, symptoms tolerable Jan, High risk medication use (ICD-10 - Z79.899) Jan, Medicare annual wellness visit, initial (ICD-10 - Z00.00) Personalized health advice was given to the beneficiary including a written plan for screenings discussed and provided. Advanced care planning reviewed and/or information given as requested. Additional counseling was provided here today in regards to, [ ]. The above visit was performed by [ ] under direct supervision of [ ]. Document reviewed and amended by provider signed below. [employer] Other Evaluation noteNo InformationNort Kid[employer]irt Other History general Narrative - Reported* Type Description Date Medical History Vasomotor rhinitis Medical History AQUIRED DEFORMITY OF SPINAL CORD Medical History Exogenous obesity Medical History Muscle spasms of neck Medical History History of nephrolithiasis Medical History Morbid obesity with BMI of 40.0- 44.9, adult Medical History Controlled type 2 di abetes mellitus with hyperglycemia, without long-term current use of insulin Medical History Essential hypertension Medical History Traumatic subdural h emorrhage with loss of consciousness of unspecified duration, sequela Surgical History COLONOSCOPY 2021 Surgical History KALI HOLE, WITH DRAINAGE OF HEM ATOMA Hospitalization History SEE SURGICAL HX [employer] Other Reason for referral (narrative)* Reason Referral for ankylos ing spondylitis Diagnosis 1 Ankylosing spondylit is of thoracolumbar region (M45.5) Diagnosis 2 Scoliosis (and kypho scoliosis), idiopathic (M41.20) Diagnosis 3 Cervical spondylosis (M47.812) Referral Organization [facility] Referring Provider First Name Semaj Referring Provider Last Name Bennie Referring Provider Specialty Internal Me dicine Referred Organization Unknown Facility Referred Provider Edi Henriquez Referred Provider Specialty Rheumatology Referral Priority Routine General Notes Mr. 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 He is in constant discomfort, prompting this referral. I have suggested to Mr. Dobson, that he be referred to pain management for treatment. However, after seeing ankylosing spondylitis on his XR report, I suggested referral to Rheumatology to determine if there would be any beneficial medical treatment. Clinical Notes Include XR reports [employer] Other Summary Purpose Family History No Family History Records FoundNo Family History Records FoundNo Family History Records FoundNo Family History Records Found Advance Directives No Advanced Directives Records FoundNo Advanced Directives Records FoundNo Advanced Directives Records FoundNo Advanced Directives Records Found Additional Source Comments REASON FOR VISIT (unrecogniz ed section and content) 6 MONTH FOLLOW UPNo Informat ionNo InformationLab/Xray results6 month Follow upNo InformationHandicap PlacardrefillNo Informationwellness (unrecognized sect ion and content) No Status Records FoundNo Status Records FoundNo Status Records FoundNo Status Records Found INFORMATION SOURCE (unrecogn ized section and content) DATE CREATED AUTHOR 02/14/2023 [facility] DATE CREATED AUTHOR AUTHOR'S ORGANIZ ATION 08/18/2023 [facility] DATE CREATED AUTHOR AUTHOR'S ORGANIZ ATION 01/13/2024 [facility] DATE CREATED AUTHOR AUTHOR'S ORGANIZ ATION 03/04/2024 [facility] EPIC FOR RECORDS PERTAINING TO PATIENTS WHO ARE OR HAVE BEEN ENROLLED IN A CHEMICAL DEPENDENCY/SUBSTANCEABUSE PROGRAM, SOME INFORMATION MAY BE OMITTED. This clinical summary was aggregated from multiple sources. Caution should be exercised in using it in the provision of clinical care. This summary normalizes information from multiple sources, and as a consequence, information in this document may materially change the coding, format and clinical context of patient data. In addition, data may be omitted in some cases. CLINICAL DECISIONS SHOULD BE BASED ON THE PRIMARY CLINICAL RECORDS. [facility], [facility]. provides no warranty or guarantee of the accuracy or completeness of information in this document.
== END 2024-03-15 19:45 | disposition home or self-care (01) ==
LOC: SLEEP 19:44
PROVIDERS: PCP Internal Medicine; Visit Provider Internal Medicine
DX: G47.33 Obstructive sleep apnea (adult) (pediatric) (principal)
CPT/HCPCS: 95810

== ENCOUNTER 2024-03-23 10:19 | Outpatient (OUT) | payer MEDICARE, MEDICAID, SELFPAY ==
[2024-03-23 10:41] LABS: Basophils Percent Auto 0.5 % (0.2-2.0); Eosinophils Absolute Auto 0.3 10^3/uL (0.0-0.7); Eosinophils Percent Auto 3.3 % (0.9-7.0); Hematocrit 40.1 % (42.0-54.0); Hemoglobin 12.8 g/dL (14.0-18.0); Immature Granulocytes Abs Auto 0.03 10^3/uL (0.00-0.03); Immature Granulocytes Pct Auto 0.3 % (0.0-0.5); Lymphocytes Absolute Auto 1.7 10^3/uL (1.2-3.8); Mean Corpuscular HGB Conc 31.9 g/dL (29.9-35.2); Mean Corpuscular Volume 81.5 fL (80.0-94.0); Mean Platelet Volume 12.2 fL (9.5-13.5); Monocytes Absolute Auto 0.7 10^3/uL (0.3-0.8); Monocytes Percent Auto 7.8 % (1.7-12.0); Neutrophils Absolute Auto 6.1 10^3/uL (1.4-6.5); Neutrophils Percent Auto 69.1 % (43.0-75.0); Platelet Count 287 10^3/uL (150-450); Red Blood Count 4.92 10^6/uL (4.70-6.10); Red Cell Distribution Width 15.3 % (11.0-15.0); White Blood Count 8.8 10^3/uL (4.0-11.0)
--- OUTSIDE RECORDS SUMMARY | 2024-03-23 10:44 | XMS_ITS | CCD ---
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 DRUG THERAPY] Onset: 02-05-2023 Episodic Other [...] Anion gap [Moles/Vol] 8 mmol/L Low 9-17 [facility] Comment on above: Performed By: #### B MPX, CDP ####[address] [address] Lab Director: Rafa Prieto MD Calcium [Mass/Vol] 7.9 mg/dL Low 8.6-10.4 [facility] Comment on above: Performed By: #### B MPX, CDP ####[address] [phone] Director: Rafa Prieto MD Chloride [Moles/Vol] 97 mmol/L Low 98-107 [facility] Comment on above: Performed By: #### B MPX, CDP ####[address] [phone] Director: Rafa Prieto MD CO2 [Moles/Vol] 25 mmol/L Normal 20-31 [facility] Comment on above: Performed By: #### B MPX, CDP ####[address] [phone] Director: Rafa Prieto MD Creatinine [Mass/Vol] 0.6 mg/dL Low 0.7-1.2 [facility] Comment on above: Performed By: #### B MPX, CDP ####[address] [phone] Director: Rafa Prieto MD GFR/1.73 sq M.predicted among non-blacks MDRD (S/P/Bld) [Vol rate/Area] mL/min/{1.73_m2} Normal >60 [facility] Comment on above: Result Comment: These [...] secretion. Performed By: #### B MPX, CDP ####[address], [place] [phone] Director: Rafa Prieto MD Glucose [Mass/Vol] 122 mg/dL High 70-99 [facility] Comment on above: Performed By: #### B MPX, CDP ####[facility] [address] [place], [place] [phone] Director: Rafa Prieto MD Potassium [Moles/Vol] 3.9 mmol/L Normal 3.7-5.3 [facility] Comment on above: Performed By: #### B MPX, CDP ####[facility] [address] [place], [place] [address])[phone] Director: Rafa Prieto MD Sodium [Moles/Vol] 130 mmol/L Low 135-144 [facility] Comment on above: Performed By: #### B MPX, CDP ####[facility] [address] [place] [address])[phone] Director: Rafa Prieto MD Urea nitrogen [Mass/Vol] 10 mg/dL Normal 6-20 [facility] Comment on above: Performed By: #### B MPX, CDP ####[facility] [address] [place] [address] [phone] Director: Rafa Prieto MD CBC with Diffon 01-06-2024 Abs. Basophil 0.04 k/uL Normal 0.00-0.20 [facility] Comment on above: Performed By: #### H EPXA, PTT #### [facility] [address] [place] [address] Kitchen Lead: Rafa Prieto MD Abs.Imm.Granulocyte 0.03 k/uL Normal 0.00-0.30 [facility] Comment on above: Performed By: #### H EPXA, PTT #### [facility] [employer] [address] [place] [address] Kitchen Lead: Rafa Prieto MD Abs.Neutrophil (Seg) 5.00 k/uL Normal 1.50-8.10 [facility] Comment on above: Performed By: #### H EPXA, PTT #### [facility] [employer] [address] [place] [address] Kitchen Lead: Rafa Prieto MD Basophils/100 WBC (Bld) 1 % Normal 0-2 [facility] Comment on above: Performed By: #### H EPXA, PTT #### [facility] [employer] [address] [place] [address] Kitchen Lead: Rafa Prieto MD Eosinophils (Bld) [#/Vol] 0.38 10*3/uL Normal 0.00-0.44 [facility] Comment on above: Performed By: #### H EPXA, PTT #### [address] [address] Kitchen Lead: Rafa Prieto MD Eosinophils/100 WBC (Bld) 5 % High 1-4 [facility] Comment on above: Performed By: #### H EPXA, PTT #### [facility] [employer] [address] [place] [address] Kitchen Lead: Rafa Prieto MD Erythrocyte distribution width (RBC) [Ratio] 16.5 % High 11.8-14.4 [facility] Comment on above: Performed By: #### H EPXA, PTT #### [facility] [employer] [address] [place] [address] Kitchen Lead: Rafa Prieto MD Hematocrit (Bld) [Volume fraction] 37.0 % Low 40.7-50.3 [facility] Comment on above: Performed By: #### H EPXA, PTT #### [facility] [employer] [address] [place] [address] Kitchen Lead: Rafa Prieto MD Hemoglobin (Bld) [Mass/Vol] 10.7 g/dL Low 13.0-17.0 [facility] Comment on above: Performed By: #### H EPXA, PTT #### [address] [address] Kitchen Lead: Rafa Prieto MD Immature granulocytes/100 WBC (Bld) 0 % Normal 0 [facility] Comment on above: Performed By: #### H EPXA, PTT #### [address] [address] Kitchen Lead: Rafa Prieto MD Lymphocytes (Bld) [#/Vol] 1.55 10*3/uL Normal 1.10-3.70 [facility] Comment on above: Performed By: #### H EPXA, PTT #### [facility] [employer] [address] [place] [address] Kitchen Lead: Rafa Prieto MD Lymphocytes/100 WBC (Bld) 19 % Low 24-43 [facility] Comment on above: Performed By: #### H EPXA, PTT #### [address] [address] Kitchen Lead: Rafa Prieto MD MCH (RBC) [Entitic mass] 24.0 pg Low 25.2-33.5 [facility] Comment on above: Performed By: #### H EPXA, PTT #### [facility] [employer] [address] [place] [address] Kitchen Lead: Rafa Prieto MD MCHC (RBC) [Mass/Vol] 28.9 g/dL Normal 28.4-34.8 [facility] Comment on above: Performed By: #### H EPXA, PTT #### [facility] [employer] [address] [place] [address] Kitchen Lead: Rafa Prieto MD MCV (RBC) [Entitic vol] 83.0 fL Normal 82.6-102.9 [facility] Comment on above: Performed By: #### H EPXA, PTT #### [address] [address] Kitchen Lead: Rafa Prieto MD Monocytes (Bld) [#/Vol] 0.99 10*3/uL Normal 0.10-1.20 [facility] Comment on above: Performed By: #### H EPXA, PTT #### [address] [address] Kitchen Lead: Rafa Prieto MD Monocytes/100 WBC (Bld) 12 % Normal 3-12 [facility] Comment on above: Performed By: #### H EPXA, PTT #### [address] [address] Kitchen Lead: Rafa Prieto MD Neutrophil (Seg) 63 % Normal 36-65 [facility] Comment on above: Performed By: #### H EPXA, PTT #### [address] [address] Kitchen Lead: Rafa Prieto MD NRBC Automated 0.0 per 100 WBC Normal 0.0 [facility] Comment on above: Performed By: #### H EPXA, PTT #### [address] [address] Kitchen Lead: Rafa Prieto MD Platelet mean volume (Bld) [Entitic vol] 10.8 fL Normal 8.1-13.5 [facility] Comment on above: Performed By: #### H EPXA, PTT #### [address] [address] Kitchen Lead: Rafa Prieto MD Platelets (Bld) [#/Vol] 204 10*3/uL Normal 138-453 [facility] Comment on above: Performed By: #### H EPXA, PTT #### [address] [address] Kitchen Lead: Rafa Prieto MD RBC (Bld) [#/Vol] 4.46 10*6/uL Normal 4.21-5.77 [facility] Comment on above: Performed By: #### H EPXA, PTT #### [facility] [place] [address] Kitchen Lead: Rafa Prieto MD RBC morphology finding Nom (Bld) ANISOCYTOSIS PRESENT Normal [facility] Comment on above: Performed By: #### H EPXA, PTT #### [facility] [place] [address] Kitchen Lead: Rafa Prieto MD WBC (Bld) [#/Vol] 8.0 10*3/uL Normal 3.5-11.3 [facility] Comment on above: Performed By: #### H EPXA, PTT #### [facility] [employer] [address] [place] [address] Kitchen Lead: Rafa Prieto MD Cult,Urineon 01-06-2024 Cult,Urine Specimen Description .CLEAN CATCH URINE Culture NO GROWTH Report Status FINAL 01/06/2024 Normal [facility] Comment on above: Performed By: #### U RC #### [address] [address] Kitchen Lead: Rafa Prieto MD Glucose,Whole Bloodon 2023 Glucose [Mass/Vol] 174 mg/dL High 75-110 [facility] Glucose [Mass/Vol] 192 mg/dL High 75-110 [facility] Glucose [Mass/Vol] 119 mg/dL High 75-110 [facility] Heparin Anti-Xaon 01-06-2024 Heparin Anti-Xa 0.41 IU/L Normal [facility] Comment on above: Performed By: #### H EPXA ####[facility] [address] [place] [address] Lab Director: Rafa rPieto MD Basic Metab w/rfx MGon 01-05 Anion gap [Moles/Vol] 11 mmol/L Normal 9-17 [facility] Comment on above: Performed By: #### U RC #### [address] [address] Kitchen Lead: Rafa Prieto MD Calcium [Mass/Vol] 7.9 mg/dL Low 8.6-10.4 [facility] Comment on above: Performed By: #### U RC #### [address] [address] Kitchen Lead: Rafa Prieto MD Chloride [Moles/Vol] 99 mmol/L Normal 98-107 [facility] Comment on above: Performed By: #### U RC #### [address] [address] Kitchen Lead: Rafa Prieto MD CO2 [Moles/Vol] 24 mmol/L Normal 20-31 [facility] Comment on above: Performed By: #### U RC #### [address] [address] Kitchen Lead: Rafa Prieto MD Creatinine [Mass/Vol] 0.6 mg/dL Low 0.7-1.2 [facility] Comment on above: Performed By: #### U RC #### [address] [address] Kitchen Lead: Rafa Prieto MD GFR/1.73 sq M.predicted among non-blacks MDRD (S/P/Bld) [Vol rate/Area] mL/min/{1.73_m2} Normal >60 [facility] Comment on above: Result Comment: These [...] secretion. Performed By: #### U RC #### [address] [address] Kitchen Lead: Rafa Prieto MD Glucose [Mass/Vol] 97 mg/dL Normal 70-99 [facility] Comment on above: Performed By: #### U RC #### [address] [address] Kitchen Lead: Rafa Prieto MD Potassium [Moles/Vol] 4.3 mmol/L Normal 3.7-5.3 [facility] Comment on above: Performed By: #### U RC #### [address] [address] Kitchen Lead: Rafa Prieto MD Sodium [Moles/Vol] 134 mmol/L Low 135-144 [facility] Comment on above: Performed By: #### U RC #### [address] [address] Kitchen Lead: Rafa Prieto MD Urea nitrogen [Mass/Vol] 10 mg/dL Normal 6-20 [facility] Comment on above: Performed By: #### U RC #### [address] [address] Kitchen Lead: Rafa Prieto MD CBC with Diffon 01-05-2024 Abs. Basophil 0.00 k/uL Normal 0.0-0.2 [facility] Comment on above: Performed By: #### U RC #### [address] [address] Kitchen Lead: Rafa Prieto MD Abs.Imm.Granulocyte 0.00 k/uL Normal 0.00-0.30 [facility] Comment on above: Performed By: #### U RC #### [address] [address] Kitchen Lead: Rafa Prieto MD Abs.Neutrophil (Seg) 4.99 k/uL Normal 1.8-7.7 [facility] Comment on above: Performed By: #### U RC #### [address] [address] Kitchen Lead: Rafa Prieto MD Basophils/100 WBC (Bld) 0 % Normal 0-2 [facility] Comment on above: Performed By: #### U RC #### [address] [address] Kitchen Lead: Rafa Prieto MD Eosinophils (Bld) [#/Vol] 0.39 10*3/uL Normal 0.0-0.4 [facility] Comment on above: Performed By: #### U RC #### [address] [address] Kitchen Lead: Rafa Prieto MD Eosinophils/100 WBC (Bld) 5 % High 1-4 [facility] Comment on above: Performed By: #### U RC #### [address] [address] Kitchen Lead: Rafa Prieto MD Immature granulocytes/100 WBC (Bld) 0 % Normal 0 [facility] Comment on above: Performed By: #### U RC #### [address] [address] Kitchen Lead: Rafa Prieto MD Lymphocytes (Bld) [#/Vol] 1.48 10*3/uL Normal 1.0-4.8 [facility] Comment on above: Performed By: #### U RC #### [address] [address] Kitchen Lead: Rafa Prieto MD Lymphocytes/100 WBC (Bld) 19 % Low 24-44 [facility] Comment on above: Performed By: #### U RC #### [address] [address] Kitchen Lead: Rafa Prieto MD Monocytes (Bld) [#/Vol] 0.94 10*3/uL High 0.1-0.8 [facility] Comment on above: Performed By: #### U RC #### [address] [address] Kitchen Lead: Rafa Prieto MD Monocytes/100 WBC (Bld) 12 % High 1-7 [facility] Comment on above: Performed By: #### U RC #### [address] [address] Kitchen Lead: Rafa Prieto MD Morphology Rancho (Bld) [Interp] ANISOCYTOSIS PRESENT Normal [facility] Comment on above: Performed By: #### U RC #### [address] [address] Kitchen Lead: Rafa Prieto MD Neutrophil (Seg) 64 % Normal 36-66 [facility] Comment on above: Performed By: #### U RC #### [address] [address] Kitchen Lead: Rafa Prieto MD Erythrocyte distribution width (RBC) [Ratio] 16.6 % High 11.8-14.4 [facility] Comment on above: Performed By: #### U RC #### [address] [address] Kitchen Lead: Rafa Prieto MD Hematocrit (Bld) [Volume fraction] 38.6 % Low 40.7-50.3 [facility] Comment on above: Performed By: #### U RC #### [address] [address] Kitchen Lead: Rafa Prieto MD Hemoglobin (Bld) [Mass/Vol] 10.9 g/dL Low 13.0-17.0 [facility] Comment on above: Performed By: #### U RC #### [address] [address] Kitchen Lead: Rafa Prieto MD MCH (RBC) [Entitic mass] 24.0 pg Low 25.2-33.5 [facility] Comment on above: Performed By: #### U RC #### [address] [address] Kitchen Lead: Rafa Prieto MD MCHC (RBC) [Mass/Vol] 28.2 g/dL Low 28.4-34.8 [facility] Comment on above: Result Comment: TEST CONFIRMED Performed By: #### U RC #### [place] [address] Kitchen Lead: Rafa Prieto MD MCV (RBC) [Entitic vol] 85.0 fL Normal 82.6-102.9 [facility] Comment on above: Performed By: #### U RC #### [address] [address] Kitchen Lead: Rafa Prieto MD NRBC Automated 0.0 per 100 WBC Normal 0.0 [facility] Comment on above: Performed By: #### U RC #### [place] [address] Kitchen Lead: Rafa Prieto MD Platelet mean volume (Bld) [Entitic vol] 11.9 fL Normal 8.1-13.5 [facility] Comment on above: Performed By: #### U RC #### [address] [address] Kitchen Lead: Rafa Prieto MD Platelets (Bld) [#/Vol] 192 10*3/uL Normal 138-453 [facility] Comment on above: Performed By: #### U RC #### [place] [place] [address] Kitchen Lead: Rafa Prieto MD RBC (Bld) [#/Vol] 4.54 10*6/uL Normal 4.21-5.77 [facility] Comment on above: Performed By: #### U RC #### [address] [address] Kitchen Lead: Rafa Prieto MD WBC (Bld) [#/Vol] 7.8 10*3/uL Normal 3.5-11.3 [facility] Comment on above: Performed By: #### U RC #### [address] [address] Kitchen Lead: Rafa Prieto MD Glucose,Whole Bloodon 2023 Glucose [Mass/Vol] 147 mg/dL High 75-110 [facility] Glucose [Mass/Vol] 178 mg/dL High 75-110 [facility] Glucose [Mass/Vol] 158 mg/dL High 75-110 [facility] Glucose [Mass/Vol] 106 mg/dL Normal -110 [facility] Heparin Anti-Xaon 01-05-2024 Heparin Anti-Xa 0.41 IU/L Normal [facility] Comment on above: Performed By: #### U RC #### [address] [address] Kitchen Lead: Rafa Prieto MD Basic Metab w/rfx MGon 01-04 Anion gap [Moles/Vol] 8 mmol/L Low 9-17 [facility] Comment on above: Performed By: #### H EPXA, PTT #### [address] [address] Kitchen Lead: Rafa Prieto MD Calcium [Mass/Vol] 7.7 mg/dL Low 8.6-10.4 [facility] Comment on above: Performed By: #### H EPXA, PTT #### [facility] [address] [place] [address] Kitchen Lead: Rafa Prieto MD Chloride [Moles/Vol] 98 mmol/L Normal 98-107 [facility] Comment on above: Performed By: #### H EPXA, PTT #### [facility] [address] [place] [address] Kitchen Lead: Rafa Prieto MD CO2 [Moles/Vol] 26 mmol/L Normal 20-31 [facility] Comment on above: Performed By: #### H EPXA, PTT #### [facility] [address] [place] [address] Kitchen Lead: Rafa Prieto MD Creatinine [Mass/Vol] 0.6 mg/dL Low 0.7-1.2 [facility] Comment on above: Performed By: #### H EPXA, PTT #### [address] [address] Kitchen Lead: Rafa Prieto MD GFR/1.73 sq M.predicted among non-blacks MDRD (S/P/Bld) [Vol rate/Area] mL/min/{1.73_m2} Normal >60 [facility] Comment on above: Result Comment: These [...] Performed By: #### H EPXA, PTT #### [address] [address] Kitchen Lead: Rafa Prieto MD Glucose [Mass/Vol] 94 mg/dL Normal 70-99 [facility] Comment on above: Performed By: #### H EPXA, PTT #### [facility] [address] [place] [address] Kitchen Lead: Rafa Prieto MD Potassium [Moles/Vol] 3.9 mmol/L Normal 3.7-5.3 [facility] Comment on above: Performed By: #### H EPXA, PTT #### [facility] [address] [place] [address] Kitchen Lead: Rafa Prieto MD Sodium [Moles/Vol] 132 mmol/L Low 135-144 [facility] Comment on above: Performed By: #### H EPXA, PTT #### [facility] [address] [place] [address] Kitchen Lead: Rafa Prieto MD Urea nitrogen [Mass/Vol] 12 mg/dL Normal 6-20 [facility] Comment on above: Performed By: #### H EPXA, PTT #### [facility] [employer] [address] [place] [address] Kitchen Lead: Rafa Prieto MD CBC with Diffon 01-04-2024 Abs. Basophil 0.04 k/uL Normal 0.00-0.20 [facility] Comment on above: Performed By: #### H EPXA, PTT #### [facility] [address] [place] [address] Kitchen Lead: Rafa Prieto MD Abs.Imm.Granulocyte 0.04 k/uL Normal 0.00-0.30 [facility] Comment on above: Performed By: #### H EPXA, PTT #### [facility] [employer] [address] [place] [address] Kitchen Lead: Rafa Prieto MD Abs.Neutrophil (Seg) 5.71 k/uL Normal 1.50-8.10 [facility] Comment on above: Performed By: #### H EPXA, PTT #### [address] [address] Kitchen Lead: Rafa Prieto MD Basophils/100 WBC (Bld) 0 % Normal 0-2 [facility] Comment on above: Performed By: #### H EPXA, PTT #### [address] [address] Kitchen Lead: Rafa Prieto MD Eosinophils (Bld) [#/Vol] 0.30 10*3/uL Normal 0.00-0.44 [facility] Comment on above: Performed By: #### H EPXA, PTT #### [address] [address] Kitchen Lead: Rafa Prieto MD Eosinophils/100 WBC (Bld) 3 % Normal 1-4 [facility] Comment on above: Performed By: #### H EPXA, PTT #### [address] [address] Kitchen Lead: Rafa Prieto MD Erythrocyte distribution width (RBC) [Ratio] 16.1 % High 11.8-14.4 [facility] Comment on above: Performed By: #### H EPXA, PTT #### [facility] [employer] [address] [place] [address] Kitchen Lead: Rafa Prieto MD Hematocrit (Bld) [Volume fraction] 36.0 % Low 40.7-50.3 [facility] Comment on above: Performed By: #### H EPXA, PTT #### [facility] [employer] [address] [place] [address] Kitchen Lead: Rafa Prieto MD Hemoglobin (Bld) [Mass/Vol] 10.5 g/dL Low 13.0-17.0 [facility] Comment on above: Performed By: #### H EPXA, PTT #### [facility] [employer] [address] [place] [address] Kitchen Lead: Rafa Prieto MD Immature granulocytes/100 WBC (Bld) 0 % Normal 0 [facility] Comment on above: Performed By: #### H EPXA, PTT #### [address] [address] Kitchen Lead: Rafa Prieto MD Lymphocytes (Bld) [#/Vol] 1.76 10*3/uL Normal 1.10-3.70 [facility] Comment on above: Performed By: #### H EPXA, PTT #### [facility] [employer] [address] [place] [address] Kitchen Lead: Rafa Prieto MD Lymphocytes/100 WBC (Bld) 20 % Low 24-43 [facility] Comment on above: Performed By: #### H EPXA, PTT #### [address] [address] Kitchen Lead: Rafa Prieto MD MCH (RBC) [Entitic mass] 24.1 pg Low 25.2-33.5 [facility] Comment on above: Performed By: #### H EPXA, PTT #### [address] [address] Kitchen Lead: Rafa Prieto MD MCHC (RBC) [Mass/Vol] 29.2 g/dL Normal 28.4-34.8 [facility] Comment on above: Performed By: #### H EPXA, PTT #### [address] [address] Kitchen Lead: Rafa Prieto MD MCV (RBC) [Entitic vol] 82.8 fL Normal 82.6-102.9 [facility] Comment on above: Performed By: #### H EPXA, PTT #### [facility] [employer] [address] [place] [address] Kitchen Lead: Rafa Prieto MD Monocytes (Bld) [#/Vol] 1.12 10*3/uL Normal 0.10-1.20 [facility] Comment on above: Performed By: #### H EPXA, PTT #### [address] [address] Kitchen Lead: Rafa Prieto MD Monocytes/100 WBC (Bld) 13 % High 3-12 [facility] Comment on above: Performed By: #### H EPXA, PTT #### [address] [address] Kitchen Lead: Rafa Prieto MD Neutrophil (Seg) 64 % Normal 36-65 [facility] Comment on above: Performed By: #### H EPXA, PTT #### [address] [address] Kitchen Lead: Rafa Prieto MD NRBC Automated 0.0 per 100 WBC Normal 0.0 [facility] Comment on above: Performed By: #### H EPXA, PTT #### [address] [address] Kitchen Lead: Rafa Prieto MD Platelet mean volume (Bld) [Entitic vol] 11.1 fL Normal 8.1-13.5 [facility] Comment on above: Performed By: #### H EPXA, PTT #### [address] [address] Kitchen Lead: Rafa Prieto MD Platelets (Bld) [#/Vol] 207 10*3/uL Normal 138-453 [facility] Comment on above: Performed By: #### H EPXA, PTT #### [address] [address] Kitchen Lead: Rafa Prieto MD RBC (Bld) [#/Vol] 4.35 10*6/uL Normal 4.21-5.77 [facility] Comment on above: Performed By: #### H EPXA, PTT #### [facility] [place] [address] Kitchen Lead: Rafa Prieto MD RBC morphology finding Nom (Bld) ANISOCYTOSIS PRESENT Normal [facility] Comment on above: Performed By: #### H EPXA, PTT #### [facility] [address] [place] [address] Kitchen Lead: Rafa Prieto MD WBC (Bld) [#/Vol] 9.0 10*3/uL Normal 3.5-11.3 [facility] Comment on above: Performed By: #### H EPXA, PTT #### [facility] [employer] [address] [place] [address] Kitchen Lead: Rafa Prieto MD Glucose,Whole Bloodon 2023 Glucose [Mass/Vol] 143 mg/dL High 75-110 [facility] Glucose [Mass/Vol] 150 mg/dL High 75-110 [facility] Hemoglobin A1Con 01-04-2024 Glucose [Mass/Vol] 140 mg/dL Normal [facility] Comment on above: Result Comment: The ADA and AACC recommend providing the estimated average glucose result to permit better patient understanding of their HBA1c result. Performed By: #### H EPXA, PTT #### [facility] [employer] [address] [place] [address] Kitchen Lead: Rafa Prieto MD HbA1c (Bld) [Mass fraction] 6.5 % High 4.0-6.0 [facility] Comment on above: Performed By: #### H EPXA, PTT #### [facility] [employer] [address] [place] [address] Kitchen Lead: Rafa Prieto MD Heparin Anti-Xaon 7 Heparin Anti-Xa 0.53 IU/L Normal [facility] Comment on above: Performed By: #### T ROPI #### [facility] [address] [place] [address] Kitchen Lead: Rafa Prieto MD Heparin Anti-Xa 0.65 IU/L Normal [facility] Comment on above: Performed By: #### U RC #### [facility] [address] [place], [place] [address] Kitchen Lead: Rfaa Prieto MD Heparin Anti-Xa 0.29 IU/L Normal [facility] Comment on above: Performed By: #### H EPXA, PTT #### [facility] [address] [place] [address] 15[address] Kitchen Lead: Rafa Prieto MD Basic Metab w/rfx MGon 01-03 Anion gap [Moles/Vol] 8 mmol/L Low 9-17 [facility] Comment on above: Performed By: #### H EPXA, PTT #### [address] [address] Kitchen Lead: Rafa Prieto MD Calcium [Mass/Vol] 7.8 mg/dL Low 8.6-10.4 [facility] Comment on above: Performed By: #### H EPXA, PTT #### [facility] [employer] [address] [place] [address] 9[address] Kitchen Lead: Raaf Prieto MD Chloride [Moles/Vol] 94 mmol/L Low 98-107 [facility] Comment on above: Performed By: #### H EPXA, PTT #### [facility] [address] [place] [address] 026[address] Kitchen Lead: Rafa Prieto MD CO2 [Moles/Vol] 25 mmol/L Normal 20-31 [facility] Comment on above: Performed By: #### H EPXA, PTT #### [facility] [address] [place] [address] 00476 Kitchen Lead: Rafa Prieto MD Creatinine [Mass/Vol] 0.6 mg/dL Low 0.7-1.2 [facility] Comment on above: Performed By: #### H EPXA, PTT #### [facility] [address] [place] [address] Kitchen Lead: Rafa Prieto MD GFR/1.73 sq M.predicted among non-blacks MDRD (S/P/Bld) [Vol rate/Area] mL/min/{1.73_m2} Normal >60 [facility] Comment on above: Result Comment: These [...] Performed By: #### H EPXA, PTT #### [facility] [address] [place] [address] 13296 Kitchen Lead: Rafa Prieto MD Glucose [Mass/Vol] 108 mg/dL High 70-99 [facility] Comment on above: Performed By: #### H EPXA, PTT #### [facility] [address] [place] [address] 26836 Kitchen Lead: Rafa Prieto MD Potassium [Moles/Vol] 3.7 mmol/L Normal 3.7-5.3 [facility] Comment on above: Performed By: #### H EPXA, PTT #### [employer] [address] [place] [address] 11570 Kitchen Lead: Rafa Prieto MD Sodium [Moles/Vol] 127 mmol/L Low 135-144 [facility] Comment on above: Performed By: #### H EPXA, PTT #### [employer] [address] [place] [address] 07665 Kitchen Lead: Rafa Prieto MD Urea nitrogen [Mass/Vol] 15 mg/dL Normal 6-20 [facility] Comment on above: Performed By: #### H EPXA, PTT #### [facility] [employer] [address] [place] [address] 37551 Kitchen Lead: Rafa Prieto MD Brain Natri. Peptideon 01-03 Natriuretic peptide B (Bld) [Mass/Vol] 1253 pg/mL High <300 [facility] Comment on above: Result Comment: An age-independent cutoff point of 300 pg/ml has a 98% negative predictive value excluding acute heart failure. Performed By: #### H EPXA, BNP, TROPI ####[facility] [address] [place] [phone])[phone] Director: Rafa Prieto MD CBC with Diffon 01-03-2024 Abs. Basophil 0.05 k/uL Normal 0.00-0.20 [facility] Comment on above: Performed By: #### H EPXA, PTT #### [facility] [employer] [address] [place] [address] 9[address]11 Kitchen Lead: Rafa Prieto MD Abs.Imm.Granulocyte <0.03 Normal 0.00-0.30 [facility] Comment on above: Performed By: #### H EPXA, PTT #### [facility] [employer] [address] [place] [address] 432[address] Kitchen Lead: Rafa Prieto MD Abs.Neutrophil (Seg) 4.63 k/uL Normal 1.50-8.10 [facility] Comment on above: Performed By: #### H EPXA, PTT #### [facility] [employer] [facility] [place] [address] Kitchen Lead: Rafa Prieto MD Basophils/100 WBC (Bld) 1 % Normal 0-2 [facility] Comment on above: Performed By: #### H EPXA, PTT #### [facility] [address] [place] [address] 18359 Kitchen Lead: Rafa Prieto MD Eosinophils (Bld) [#/Vol] 0.23 10*3/uL Normal 0.00-0.44 [facility] Comment on above: Performed By: #### H EPXA, PTT #### [address] [address] Kitchen Lead: Rafa Prieto MD Eosinophils/100 WBC (Bld) 3 % Normal 1-4 [facility] Comment on above: Performed By: #### H EPXA, PTT #### [facility] [employer] [address] [place] [address] 7[address]65 Kitchen Lead: Rafa Prieto MD Erythrocyte distribution width (RBC) [Ratio] 16.2 % High 11.8-14.4 [facility] Comment on above: Performed By: #### H EPXA, PTT #### [address] [address] Kitchen Lead: Rafa Prieto MD Hematocrit (Bld) [Volume fraction] 37.7 % Low 40.7-50.3 [facility] Comment on above: Performed By: #### H EPXA, PTT #### [address] [address] Kitchen Lead: Rafa Prieto MD Hemoglobin (Bld) [Mass/Vol] 10.9 g/dL Low 13.0-17.0 [facility] Comment on above: Performed By: #### H EPXA, PTT #### [address] [address] Kitchen Lead: Rafa Prieto MD Immature granulocytes/100 WBC (Bld) 0 % Normal 0 [facility] Comment on above: Performed By: #### H EPXA, PTT #### [facility] [employer] [address] [place] [address] 53095 Kitchen Lead: Rafa Prieto MD Lymphocytes (Bld) [#/Vol] 1.96 10*3/uL Normal 1.10-3.70 [facility] Comment on above: Performed By: #### H EPXA, PTT #### [address] [address] Kitchen Lead: Rafa Prieto MD Lymphocytes/100 WBC (Bld) 24 % Normal 24-43 [facility] Comment on above: Performed By: #### H EPXA, PTT #### [place] [address] Kitchen Lead: Rafa Prieto MD MCH (RBC) [Entitic mass] 24.2 pg Low 25.2-33.5 [facility] Comment on above: Performed By: #### H EPXA, PTT #### [address] [address] Kitchen Lead: Rafa Prieto MD MCHC (RBC) [Mass/Vol] 28.9 g/dL Normal 28.4-34.8 [facility] Comment on above: Performed By: #### H EPXA, PTT #### [address] [address] Kitchen Lead: Rafa Prieto MD MCV (RBC) [Entitic vol] 83.6 fL Normal 82.6-102.9 [facility] Comment on above: Performed By: #### H EPXA, PTT #### [place] [address] Kitchen Lead: Rafa Prieto MD Monocytes (Bld) [#/Vol] 1.23 10*3/uL High 0.10-1.20 [facility] Comment on above: Performed By: #### H EPXA, PTT #### [facility] [employer] [address] [place] [address] 8[address]47 Kitchen Lead: Rafa Prieto MD Monocytes/100 WBC (Bld) 15 % High 3-12 [facility] Comment on above: Performed By: #### H EPXA, PTT #### [facility] [employer] [address] [place] [address] 95855 Kitchen Lead: Rafa Prieto MD Neutrophil (Seg) 57 % Normal 36-65 [facility] Comment on above: Performed By: #### H EPXA, PTT #### [address] [address] Kitchen Lead: Rafa Prieto MD NRBC Automated 0.0 per 100 WBC Normal 0.0 [facility] Comment on above: Performed By: #### H EPXA, PTT #### [address] [address] Kitchen Lead: Rafa Prieto MD Platelet mean volume (Bld) [Entitic vol] 10.8 fL Normal 8.1-13.5 [facility] Comment on above: Performed By: #### H EPXA, PTT #### [address] [address] Kitchen Lead: Rafa Prieto MD Platelets (Bld) [#/Vol] 194 10*3/uL Normal 138-453 [facility] Comment on above: Performed By: #### H EPXA, PTT #### [address] [address] Kitchen Lead: Rafa Prieto MD RBC (Bld) [#/Vol] 4.51 10*6/uL Normal 4.21-5.77 [facility] Comment on above: Performed By: #### H EPXA, PTT #### [facility] [employer] [address] [place] [address] Kitchen Lead: Rafa Prieto MD RBC morphology finding Nom (Bld) ANISOCYTOSIS PRESENT Normal [facility] Comment on above: Performed By: #### H EPXA, PTT #### [facility] [employer] [address] [place] [address]551 Kitchen Lead: Rafa Prieto MD WBC (Bld) [#/Vol] 8.1 10*3/uL Normal 3.5-11.3 [facility] Comment on above: Performed By: #### H EPXA, PTT #### [facility] [employer] [address] [place] [address] Kitchen Lead: Rafa Prieto MD Glucose,Whole Bloodon 2023 Glucose [Mass/Vol] 143 mg/dL High 75-110 [facility] Glucose [Mass/Vol] 107 mg/dL Normal 75-110 [facility] Heparin Anti-Xaon 01-03-2024 Heparin Anti-Xa 0.48 IU/L Normal [facility] Comment on above: Performed By: #### H EPXA, BNP, TROPI ####[address] [address] Lab Director: Rafa Prieto MD Osmolalityon 01-03-2024 Osmolality [Osmolality] 280 mosm/kg Normal 275-295 [facility] Comment on above: Performed By: #### O SMO, REJEC ####[address] [address] Lab Director: Rafa Prieto MD Osmolality, Urineon 01-03-20 24 Osmolality - Urine 293 mOsm/kg Normal 80-1300 [facility] Comment on above: Performed By: #### U RC #### [facility] [employer] [address] [place] [address] 10788 Kitchen Lead: Rafa Prieto MD Sodium, Random Uron 01-03-20 24 Na Conc. Urine <20 Normal [facility] Comment on above: Result Comment: No n ormal range established. Performed By: #### U RC #### [address] [address] Kitchen Lead: Rafa Prieto MD Specimen Rejectionon 024 Reason for rejection Unable to perform testing: Specimen quantity not sufficient. Normal [facility] Comment on above: Performed By: #### O SMO, REJEC ####[facility] [address] [place], [place] [phone] Lab Director: Rafa Prieto MD Source of sample .BLOOD Normal [facility] Comment on above: Performed By: #### O SMO, REJEC ####[facility] [address] [place], [place] [id number] Lab Director: Rafa Prieto MD Test ordered BNP TROPI Normal [facility] Comment on above: Performed By: #### O SMO, REJEC ####[facility] [address] [place], [place] [phone] lab Director: Rafa Prieto MD Troponinon 01-03-2024 Troponin, High Sens 57 ng/L Critically high 0-22 [facility] Comment on above: Result Comment: High Sensitivity Troponin values cannot be compared with other Troponin methodologies. Performed By: #### U RC #### [facility] [address] [place] [address] Kitchen Lead: Rafa Prieto MD XR CHEST PORTABLEon 01-03-20 [...] Samir Infante MD 01/03/24 Final result Normal [facility] Arterial Bld Gas,POCon 01-02 Rao Test Positive Normal [facility] HCO3 (Bld) [Moles/Vol] 30.0 mmol/L High 21.0-28.0 [facility] Oxygen saturation in Blood 93.2 % Low 94.0-98.0 [facility] Patient Temp. 37.7 Normal [facility] pCO2, Arterial 53.1 mm Hg High 35.0-48.0 [facility] pCO2, Temp Adjust 54.7 mm Hg Normal [facility] pH, Arterial 7.361 Normal 7.350-7.450 [facility] pH, Temp Adjust 7.350 Normal [facility] pO2, Arterial 71.8 mm Hg Low 83.0-108.0 [facility] pO2, Temp Adjust 75.2 mm Hg Normal [facility] Positive Base Excess (calc) 3.3 mmol/L High 0.0-3.0 [facility] Site Drawn Left Radial Artery Normal [facility] Basic Metab w/rfx MGon 01-02 Anion gap [Moles/Vol] 9 mmol/L Normal 9-17 [facility] Comment on above: Performed By: #### H EPXA, PTT #### [employer] [address] [place] [address]489 Kitchen Lead: Rafa Prieto MD Calcium [Mass/Vol] 8.0 mg/dL Low 8.6-10.4 [facility] Comment on above: Performed By: #### H EPXA, PTT #### [employer] [address] [place] [address] 18254 Kitchen Lead: Rafa Prieto MD Chloride [Moles/Vol] 100 mmol/L Normal 98-107 [facility] Comment on above: Performed By: #### H EPXA, PTT #### [employer] [address] [place] [address] Kitchen Lead: Rafa Prieto MD CO2 [Moles/Vol] 26 mmol/L Normal 20-31 [facility] Comment on above: Performed By: #### H EPXA, PTT #### [employer] [facility] [place] [address] Kitchen Lead: Rafa Prieto MD Creatinine [Mass/Vol] 0.7 mg/dL Normal 0.7-1.2 [facility] Comment on above: Performed By: #### H EPXA, PTT #### [employer] [address] [place] [address] 12472 Kitchen Lead: Rafa Prieto MD GFR/1.73 sq M.predicted among non-blacks MDRD (S/P/Bld) [Vol rate/Area] mL/min/{1.73_m2} Normal >60 [facility] Comment on above: Result Comment: These [...] Performed By: #### H EPXA, PTT #### [employer] [address] [place] [address] 84294 Kitchen Lead: Rafa Prieto MD Glucose [Mass/Vol] 110 mg/dL High 70-99 [facility] Comment on above: Performed By: #### H EPXA, PTT #### [employer] [address] [place] [address]755 Kitchen Lead: Rafa Prieto MD Potassium [Moles/Vol] 3.9 mmol/L Normal 3.7-5.3 [facility] Comment on above: Performed By: #### H EPXA, PTT #### [employer] [address] [place] [address] 52437 Kitchen Lead: Rafa Prieto MD Sodium [Moles/Vol] 135 mmol/L Normal 135-144 [facility] Comment on above: Performed By: #### H EPXA, PTT #### [employer] [address] [place] [address] 06393 Kitchen Lead: Rafa Prieto MD Urea nitrogen [Mass/Vol] 15 mg/dL Normal 6-20 [facility] Comment on above: Performed By: #### H EPXA, PTT #### [facility] [employer] [address] [place] [address] 09986 Kitchen Lead: Rafa Prieto MD CBC with Diffon 01-02-2024 Abs. Basophil 0.00 k/uL Normal 0.0-0.2 [facility] Comment on above: Performed By: #### H EPXA, PTT #### [facility] [employer] [address] [place] [address] 42070 Kitchen Lead: Rafa Prieto MD Abs.Imm.Granulocyte 0.00 k/uL Normal 0.00-0.30 [facility] Comment on above: Performed By: #### H EPXA, PTT #### [facility] [employer] [address] [place] [address] 22501 Kitchen Lead: Rafa Prieto MD Abs.Neutrophil (Seg) 4.48 k/uL Normal 1.8-7.7 [facility] Comment on above: Performed By: #### H EPXA, PTT #### [address] [address] Kitchen Lead: Rafa Prieto MD Basophils/100 WBC (Bld) 0 % Normal 0-2 [facility] Comment on above: Performed By: #### H EPXA, PTT #### [facility] [employer] [address] [place] [address] 44187 Kitchen Lead: Rafa Prieto MD Eosinophils (Bld) [#/Vol] 0.08 10*3/uL Normal 0.0-0.4 [facility] Comment on above: Performed By: #### H EPXA, PTT #### [facility] [employer] [address] [place] [address]137 Kitchen Lead: Rafa Prieto MD Eosinophils/100 WBC (Bld) 1 % Normal 1-4 [facility] Comment on above: Performed By: #### H EPXA, PTT #### [facility] [address] [place] [address] 07105 Kitchen Lead: Rafa Prieto MD Immature granulocytes/100 WBC (Bld) 0 % Normal 0 [facility] Comment on above: Performed By: #### H EPXA, PTT #### [facility] [address] [place] [address] 8[address]05 Kitchen Lead: Rafa Prieto MD Lymphocytes (Bld) [#/Vol] 1.76 10*3/uL Normal 1.0-4.8 [facility] Comment on above: Performed By: #### H EPXA, PTT #### [facility] [employer] [address] [place] [address] 20015 Kitchen Lead: Rafa Prieto MD Lymphocytes/100 WBC (Bld) 22 % Low 24-44 [facility] Comment on above: Performed By: #### H EPXA, PTT #### [address] [address] Kitchen Lead: Rafa Prieto MD Monocytes (Bld) [#/Vol] 1.68 10*3/uL High 0.1-0.8 [facility] Comment on above: Performed By: #### H EPXA, PTT #### [facility] [employer] [address] [place] [address] 01490 Kitchen Lead: Rafa Prieto MD Monocytes/100 WBC (Bld) 21 % High 1-7 [facility] Comment on above: Performed By: #### H EPXA, PTT #### [facility] [employer] [address] [place] [address] 99089 Kitchen Lead: Rafa Prieto MD Morphology Rancho (Bld) [Interp] ANISOCYTOSIS PRESENT Normal [facility] Comment on above: Performed By: #### H EPXA, PTT #### [facility] [employer] [address] [place] [address] 24170 Kitchen Lead: Rafa Prieto MD Neutrophil (Seg) 56 % Normal 36-66 [facility] Comment on above: Performed By: #### H EPXA, PTT #### [address] [address] Kitchen Lead: Rafa Prieto MD Erythrocyte distribution width (RBC) [Ratio] 15.9 % High 11.8-14.4 [facility] Comment on above: Performed By: #### H EPXA, PTT #### [facility] [employer] [address] [place] [address] 20769 Kitchen Lead: Rafa Prieto MD Hematocrit (Bld) [Volume fraction] 40.7 % Normal 40.7-50.3 [facility] Comment on above: Performed By: #### H EPXA, PTT #### [address] [address] Kitchen Lead: Rafa Prieto MD Hemoglobin (Bld) [Mass/Vol] 11.6 g/dL Low 13.0-17.0 [facility] Comment on above: Performed By: #### H EPXA, PTT #### [address] [address] Kitchen Lead: Rafa Prieto MD MCH (RBC) [Entitic mass] 24.0 pg Low 25.2-33.5 [facility] Comment on above: Performed By: #### H EPXA, PTT #### [facility] [employer] [address] [place] [address] Kitchen Lead: Rafa Prieto MD MCHC (RBC) [Mass/Vol] 28.5 g/dL Normal 28.4-34.8 [facility] Comment on above: Performed By: #### H EPXA, PTT #### [facility] [employer] [address] [place] [address]117 Kitchen Lead: Rafa Prieto MD MCV (RBC) [Entitic vol] 84.1 fL Normal 82.6-102.9 [facility] Comment on above: Performed By: #### H EPXA, PTT #### [address] [address] Kitchen Lead: Rafa Prieto MD NRBC Automated 0.0 per 100 WBC Normal 0.0 [facility] Comment on above: Performed By: #### H EPXA, PTT #### [address] [address] Kitchen Lead: Rafa Prieto MD Platelet mean volume (Bld) [Entitic vol] 11.1 fL Normal 8.1-13.5 [facility] Comment on above: Performed By: #### H EPXA, PTT #### [address] [address] Kitchen Lead: Rafa Prieto MD Platelets (Bld) [#/Vol] 212 10*3/uL Normal 138-453 [facility] Comment on above: Performed By: #### H EPXA, PTT #### [address] [address] Kitchen Lead: Rafa Prieto MD RBC (Bld) [#/Vol] 4.84 10*6/uL Normal 4.21-5.77 [facility] Comment on above: Performed By: #### H EPXA, PTT #### [address] [address] Kitchen Lead: Rafa Prieto MD WBC (Bld) [#/Vol] 8.0 10*3/uL Normal 3.5-11.3 [facility] Comment on above: Performed By: #### H EPXA, PTT #### [address] [address] Kitchen Lead: Rafa Prieto MD Glucose (POC)on 01-02-2024 Glucose [Mass/Vol] 116 mg/dL High 74-100 [facility] Glucose,Whole Bloodon 2023 Glucose [Mass/Vol] 165 mg/dL High 75-110 [facility] Glucose [Mass/Vol] 209 mg/dL High 75-110 [facility] Glucose [Mass/Vol] 115 mg/dL High 75-110 [facility] Glucose [Mass/Vol] 78 mg/dL Normal 75-110 [facility] Heparin Anti-Xaon 01-02-2024 Heparin Anti-Xa 0.55 IU/L Normal [facility] Comment on above: Performed By: #### H EPXA, PTT #### [employer] [address] [place] [address] 1946[address] Kitchen Lead: Rafa Prieto MD Heparin Anti-Xa 0.63 IU/L Normal [facility] Comment on above: Performed By: #### H EPXA ####[facility] [address] [place] [address] Lab Director: Rafa Prieto MD APTTon 01-01-2024 aPTT Coag (Bld) [Time] 123.5 s Critically high 23.0-36.5 [facility] Comment on above: Result Comment: IV Heparin Therapy Range: 66.0-92.0 sec Performed By: #### H EPXA, PTT #### [employer] [address] [place] [address] Kitchen Lead: Rafa Prieto MD aPTT Coag (Bld) [Time] 82.0 s High 23.0-36.5 [facility] Comment on above: Result Comment: IV Heparin Therapy Range: 66.0-92.0 sec Performed By: #### H EPXA, PTT #### [employer] [facility] [place], [place] 0336108 Kitchen Lead: Rafa Prieto MD aPTT Coag (Bld) [Time] 122.3 s Critically high 23.0-36.5 [facility] Comment on above: Result Comment: IV Heparin Therapy Range: 66.0-92.0 sec Performed By: #### T ROPI #### [facility] [employer] [facility] [place] [address] Kitchen Lead: Rafa Prieto MD Basic Metab w/rfx MGon 01-01 Creatinine [Mass/Vol] 0.8 mg/dL Normal 0.7-1.2 [facility] Comment on above: Result Comment: ICTE MANSOOR SPECIMEN Performed By: #### B MPX, CDP, TROPI, MG ####[facility] [address] [place] [address] Lab Director: Rafa Prieto MD GFR/1.73 sq M.predicted among non-blacks MDRD (S/P/Bld) [Vol rate/Area] mL/min/{1.73_m2} Normal >60 [facility] Comment on above: Result Comment: These [...] By: #### B MPX, CDP, TROPI, MG ####[facility]fomyxmszifg[address] [place] [address] Lab Director: Rafa Prieto MD Potassium [Moles/Vol] 3.5 mmol/L Low 3.7-5.3 [facility] Comment on above: Performed By: #### B MPX, CDP, TROPI, MG ####[facility]Yjkmlwgnhpkn[address] [place] [address] 524[address] Lab Director: Rafa Prieto MD Anion gap [Moles/Vol] 13 mmol/L Normal 9-17 [facility] Comment on above: Performed By: #### B MPX, CDP, TROPI, MG ####[facility] [address] [place] [address] Lab Director: Rafa Prieto MD Calcium [Mass/Vol] 8.3 mg/dL Low 8.6-10.4 [facility] Comment on above: Performed By: #### B MPX, CDP, TROPI, MG ####[facility] [address] [place] [address] Lab Director: Rafa Prieto MD Chloride [Moles/Vol] 99 mmol/L Normal 98-107 [facility] Comment on above: Performed By: #### B MPX, CDP, TROPI, MG ####[facility] [address] [place], [place] [phone] Director: Rafa Prieto MD CO2 [Moles/Vol] 25 mmol/L Normal 20-31 [facility] Comment on above: Performed By: #### B MPX, CDP, TROPI, MG ####[facility] [address] [place] [address] Lab Director: Rafa Prieto MD Glucose [Mass/Vol] 89 mg/dL Normal 70-99 [facility] Comment on above: Performed By: #### B MPX, CDP, TROPI, MG ####[facility] [address] [place] [address] Lab Director: Rafa Prieto MD Sodium [Moles/Vol] 137 mmol/L Normal 135-144 [facility] Comment on above: Performed By: #### B MPX, CDP, TROPI, MG ####[facility] [address] [place], [place] [phone] Director: Rafa Prieto MD Urea nitrogen [Mass/Vol] 20 mg/dL Normal 6-20 [facility] Comment on above: Performed By: #### B MPX, CDP, TROPI, MG ####[facility] [address] [facility], [place] 0119[address] Lab Director: Rafa Prieto MD Basic Metabolic Profon 01-01 Creatinine [Mass/Vol] 0.7 mg/dL Normal 0.7-1.2 [facility] Comment on above: Result Comment: ICTE MANSOOR SPECIMEN Performed By: #### T ROPI #### [facility] [address] [place] [address] Kitchen Lead: Rafa Prieto MD GFR/1.73 sq M.predicted among non-blacks MDRD (S/P/Bld) [Vol rate/Area] mL/min/{1.73_m2} Normal >60 [facility] Comment on above: Result Comment: These [...] secretion. Performed By: #### T ROPI #### [facility] [address] [place] [address] Kitchen Lead: Rafa Prieto MD Anion gap [Moles/Vol] 12 mmol/L Normal 9-17 [facility] Comment on above: Performed By: #### T ROPI #### [facility] [address] [place] [address] Kitchen Lead: Rafa Prieto MD Calcium [Mass/Vol] 8.3 mg/dL Low 8.6-10.4 [facility] Comment on above: Performed By: #### T ROPI #### [facility] [facility] [address] [place] [address] Kitchen Lead: Rafa Prieto MD Chloride [Moles/Vol] 98 mmol/L Normal 98-107 [facility] Comment on above: Performed By: #### T ROPI #### [employer] [facility] [place] [address] Kitchen Lead: Rafa Prieto MD CO2 [Moles/Vol] 25 mmol/L Normal 20-31 [facility] Comment on above: Performed By: #### T ROPI #### [facility] [employer] [address] [place] [address] Kitchen Lead: Rafa Prieto MD Glucose [Mass/Vol] 125 mg/dL High 70-99 [facility] Comment on above: Performed By: #### T ROPI #### [facility] [employer] [address] [place] [address] Kitchen Lead: Rafa Prieto MD Potassium [Moles/Vol] 3.6 mmol/L Low 3.7-5.3 [facility] Comment on above: Performed By: #### T ROPI #### [facility] [employer] [address] [place] [address] Kitchen Lead: Rafa Prieto MD Sodium [Moles/Vol] 135 mmol/L Normal 135-144 [facility] Comment on above: Performed By: #### T ROPI #### [facility] [employer] [address] [place] [address] Kitchen Lead: Rafa Prieto MD Urea nitrogen [Mass/Vol] 22 mg/dL High 6-20 [facility] Comment on above: Performed By: #### T ROPI #### [facility] [employer] [address] [place] [address] Kitchen Lead: Rafa Prieto MD Brain Natri. Peptideon 01-01 Natriuretic peptide B (Bld) [Mass/Vol] 2437 pg/mL High <300 [facility] Comment on above: Result Comment: An age-independent cutoff point of 300 pg/ml has a 98% negative predictive value excluding acute heart failure. Performed By: #### T ROPI #### [facility] [address] [place] [address] Kitchen Lead: Rafa Prieto MD CBC with Diffon 01-01-2024 Abs. Basophil 0.00 k/uL Normal 0.00-0.20 [facility] Comment on above: Performed By: #### B MPX, CDP, TROPI, MG ####[facility] [address] [place], [place] [address])[phone] Director: Rafa Prieto MD Abs.Imm.Granulocyte 0.00 k/uL Normal 0.00-0.30 [facility] Comment on above: Performed By: #### B MPX, CDP, TROPI, MG ####[facility] [address] [place], [place] [address])[phone] Director: Rafa Prieto MD Abs.Neutrophil (Seg) 4.00 k/uL Normal 1.50-8.10 [facility] Comment on above: Performed By: #### B MPX, CDP, TROPI, MG ####[facility] [address]jzb[address]otmmjd260[address] [place], [place] [address])[phone] Director: Rafa Prieto MD Basophils/100 WBC (Bld) 0 % Normal 0-2 [facility] Comment on above: Performed By: #### B MPX, CDP, TROPI, MG ####[facility] [address]rgqtd[address]64[address] [place], [place] [address])[phone] Director: Rafa Prieto MD Eosinophils (Bld) [#/Vol] 0.00 10*3/uL Normal 0.00-0.44 [facility] Comment on above: Performed By: #### B MPX, CDP, TROPI, MG ####[facility] [address]tr[address]yn[address] [place], [place] [address])[phone] Director: Rafa Prieto MD Eosinophils/100 WBC (Bld) 0 % Low 1-4 [facility] Comment on above: Performed By: #### B MPX, CDP, TROPI, MG ####[facility] [address] [place], [place] [phone])[phone] Director: Rafa Prieto MD Immature granulocytes/100 WBC (Bld) 0 % Normal 0 [facility] Comment on above: Performed By: #### B MPX, CDP, TROPI, MG ####[facility] [address] [place], [place] [phone] Director: Rafa Prieto MD Lymphocytes (Bld) [#/Vol] 1.70 10*3/uL Normal 1.10-3.70 [facility] Comment on above: Performed By: #### B MPX, CDP, TROPI, MG ####[facility] [address] [place], [place] [phone])[phone] Director: Rafa Prieto MD Lymphocytes/100 WBC (Bld) 23 % Low 24-43 [facility] Comment on above: Performed By: #### B MPX, CDP, TROPI, MG ####[facility] [address]jp[address]166 [place], [place] [id number])[phone] Director: Rafa Prieto MD Monocytes (Bld) [#/Vol] 1.70 10*3/uL High 0.10-1.20 [facility] Comment on above: Performed By: #### B MPX, CDP, TROPI, MG ####[facility] [address] [place], [place] [phone] Director: Rafa Prieto MD Monocytes/100 WBC (Bld) 23 % High 3-12 [facility] Comment on above: Performed By: #### B MPX, CDP, TROPI, MG ####[facility] [address] [place], [place] [phone] Director: Rafa Prieto MD Morphology Rancho (Bld) [Interp] ANISOCYTOSIS PRESENT Normal [facility] Comment on above: Result Comment: MICR OCYTOSIS PRESENT Performed By: #### B MPX, CDP, TROPI, MG ####[facility] [address]uztnnlcp94[address] [place] [address] Lab Director: Rafa Prieto MD Neutrophil (Seg) 54 % Normal 36-65 [facility] Comment on above: Performed By: #### B MPX, CDP, TROPI, MG ####[facility] [address]fp[address]ffertomx65[address] [place] [address] Lab Director: Rafa Prieto MD Erythrocyte distribution width (RBC) [Ratio] 15.8 % High 11.8-14.4 [facility] Comment on above: Performed By: #### B MPX, CDP, TROPI, MG ####[facility] [address]vmtnjl8[address] [place], [place] [address])[phone] Director: Rafa Prieto MD Hematocrit (Bld) [Volume fraction] 40.9 % Normal 40.7-50.3 [facility] Comment on above: Performed By: #### B MPX, CDP, TROPI, MG ####[facility] [address] [place], [place] [address])[phone] Director: Rafa Prieto MD Hemoglobin (Bld) [Mass/Vol] 12.3 g/dL Low 13.0-17.0 [facility] Comment on above: Performed By: #### B MPX, CDP, TROPI, MG ####[facility] [address]nefaofs[address]al[address] [place] [address] Lab Director: Rafa Prieto MD MCH (RBC) [Entitic mass] 24.2 pg Low 25.2-33.5 [facility] Comment on above: Performed By: #### B MPX, CDP, TROPI, MG ####[facility] R[address] [place], [place] [phone] Director: Rafa Prieto MD MCHC (RBC) [Mass/Vol] 30.1 g/dL Normal 28.4-34.8 [facility] Comment on above: Performed By: #### B MPX, CDP, TROPI, MG ####[facility] Vikifxffts[address]13 [place], [place] [phone] Director: Rafa Prieto MD MCV (RBC) [Entitic vol] 80.5 fL Low 82.6-102.9 [facility] Comment on above: Performed By: #### B MPX, CDP, TROPI, MG ####[facility] Ocfbtpvxruxx0117 [place], [place] [phone])[phone] Director: Rafa Prieto MD NRBC Automated 0.0 per 100 WBC Normal 0.0 [facility] Comment on above: Performed By: #### B MPX, CDP, TROPI, MG ####[facility] Birqbqdkjntz6387 [place], [place] [id number])[phone] Director: Rafa Prieto MD Platelet mean volume (Bld) [Entitic vol] 11.0 fL Normal 8.1-13.5 [facility] Comment on above: Performed By: #### B MPX, CDP, TROPI, MG ####[facility] [address]pbe4[address] [place], [place] [address])[phone] Director: Rafa Prieto MD Platelets (Bld) [#/Vol] 246 10*3/uL Normal 138-453 [facility] Comment on above: Performed By: #### B MPX, CDP, TROPI, MG ####[facility] Vwt[address]ivnfhmni[address]50 [place], [place] [phone] Director: Rafa Prieto MD RBC (Bld) [#/Vol] 5.08 10*6/uL Normal 4.21-5.77 [facility] Comment on above: Performed By: #### B MPX, CDP, TROPI, MG ####[facility] Mgyorsppjsde9910 [place], [place] [phone] Director: Rafa Prieto MD WBC (Bld) [#/Vol] 7.4 10*3/uL Normal 3.5-11.3 [facility] Comment on above: Performed By: #### B MPX, CDP, TROPI, MG ####[place], [place] [address])[phone] Director: Rafa Prieto MD Abs. Basophil 0.00 k/uL Normal 0.0-0.2 [facility] Comment on above: Performed By: #### T ROPI #### [place] [address] Kitchen Lead: Rafa Prieto MD Abs.Imm.Granulocyte 0.00 k/uL Normal 0.00-0.30 [facility] Comment on above: Performed By: #### T ROPI #### [place] [address] Kitchen Lead: Rafa Prieto MD Abs.Neutrophil (Seg) 5.76 k/uL Normal 1.8-7.7 [facility] Comment on above: Performed By: #### T ROPI #### [place] [address] Kitchen Lead: Rafa Prieto MD Basophils/100 WBC (Bld) 0 % Normal 0-2 [facility] Comment on above: Performed By: #### T ROPI #### [place] [address] Kitchen Lead: Rafa Prieto MD Eosinophils (Bld) [#/Vol] 0.00 10*3/uL Normal 0.0-0.4 [facility] Comment on above: Performed By: #### T ROPI #### [address] [address] Kitchen Lead: Rafa Prieto MD Eosinophils/100 WBC (Bld) 0 % Low 1-4 [facility] Comment on above: Performed By: #### T ROPI #### [address] [address] Kitchen Lead: Rafa Prieto MD Immature granulocytes/100 WBC (Bld) 0 % Normal 0 [facility] Comment on above: Performed By: #### T ROPI #### [address] [address] Kitchen Lead: Rafa Prieto MD Lymphocytes (Bld) [#/Vol] 1.28 10*3/uL Normal 1.0-4.8 [facility] Comment on above: Performed By: #### T ROPI #### [address] [address] Kitchen Lead: Rafa Prieto MD Lymphocytes/100 WBC (Bld) 16 % Low 24-44 [facility] Comment on above: Performed By: #### T ROPI #### [address] [address] Kitchen Lead: Rfaa Prieto MD Monocytes (Bld) [#/Vol] 0.96 10*3/uL High 0.1-0.8 [facility] Comment on above: Performed By: #### T ROPI #### [address] [address] Kitchen Lead: Rafa Prieto MD Monocytes/100 WBC (Bld) 12 % High 1-7 [facility] Comment on above: Performed By: #### T ROPI #### [address] [address] Kitchen Lead: Rafa Prieto MD Morphology Rancho (Bld) [Interp] ANISOCYTOSIS PRESENT Normal [facility] Comment on above: Result Comment: MICR OCYTOSIS PRESENT Performed By: #### T ROPI #### [address] [address] Kitchen Lead: Rafa Prieto MD Neutrophil (Seg) 72 % High 36-66 [facility] Comment on above: Performed By: #### T ROPI #### [address] [address] Kitchen Lead: Rafa Prieto MD Nucleated RBC'S 1 per 100 WBC High 0 [facility] Comment on above: Performed By: #### T ROPI #### [address] [phone] Kitchen Lead: Rafa Prieto MD Erythrocyte distribution width (RBC) [Ratio] 15.9 % High 11.8-14.4 [facility] Comment on above: Performed By: #### T ROPI #### [address] [address] Kitchen Lead: Rafa Prieto MD Hematocrit (Bld) [Volume fraction] 41.5 % Normal 40.7-50.3 [facility] Comment on above: Performed By: #### T ROPI #### [address] [address] Kitchen Lead: Rafa Prieto MD Hemoglobin (Bld) [Mass/Vol] 12.7 g/dL Low 13.0-17.0 [facility] Comment on above: Performed By: #### T ROPI #### [address] [address] Kitchen Lead: Rafa Prieto MD MCH (RBC) [Entitic mass] 24.3 pg Low 25.2-33.5 [facility] Comment on above: Performed By: #### T ROPI #### [address] [address] Kitchen Lead: Rafa Prieto MD MCHC (RBC) [Mass/Vol] 30.6 g/dL Normal 28.4-34.8 [facility] Comment on above: Performed By: #### T ROPI #### [facility] [employer] [address] [place] [address] Kitchen Lead: Rafa Prieto MD MCV (RBC) [Entitic vol] 79.5 fL Low 82.6-102.9 [facility] Comment on above: Performed By: #### T ROPI #### [address] [address] Kitchen Lead: Rafa Prieto MD NRBC Automated 0.3 per 100 WBC High 0.0 [facility] Comment on above: Performed By: #### T ROPI #### [address] [address] Kitchen Lead: Rafa Prieto MD Platelet mean volume (Bld) [Entitic vol] 10.9 fL Normal 8.1-13.5 [facility] Comment on above: Performed By: #### T ROPI #### [address] [address] Kitchen Lead: Rafa Priteo MD Platelets (Bld) [#/Vol] 265 10*3/uL Normal 138-453 [facility] Comment on above: Performed By: #### T ROPI #### [address] [address] Kitchen Lead: Rafa Prieto MD RBC (Bld) [#/Vol] 5.22 10*6/uL Normal 4.21-5.77 [facility] Comment on above: Performed By: #### T ROPI #### [address] [address] Kitchen Lead: Rafa Prieto MD WBC (Bld) [#/Vol] 8.0 10*3/uL Normal 3.5-11.3 [facility] Comment on above: Performed By: #### T ROPI #### [address] [address] Kitchen Lead: Rafa Prieto MD Glucose,Whole Bloodon 2023 Glucose [Mass/Vol] 72 mg/dL Low 75-110 [facility] Glucose [Mass/Vol] 60 mg/dL Low 75-110 [facility] Glucose [Mass/Vol] 44 mg/dL Low 75-110 [facility] Comment on above: Result Comment: Alesia icaonofre Noted Glucose [Mass/Vol] 91 mg/dL Normal 75-110 [facility] Glucose [Mass/Vol] 66 mg/dL Low 75-110 [facility] Glucose [Mass/Vol] 42 mg/dL Low 75-110 [facility] Comment on above: Result Comment: Alesia icaonofre Noted Glucose [Mass/Vol] 124 mg/dL High -110 [facility] Heparin Anti-Xaon 01-01-2024 Heparin Anti-Xa 0.97 IU/L Normal [facility] Comment on above: Performed By: #### H EPXA #### [facility] [address] [place] [address] Kitchen Lead: Rafa Prieto MD Heparin Anti-Xa 0.40 IU/L Normal [facility] Comment on above: Performed By: #### H EPXA, PTT #### [address] [address] Kitchen Lead: Rafa Prieto MD Heparin Anti-Xa 0.32 IU/L Normal [facility] Comment on above: Performed By: #### H EPXA, PTT #### [facility] [employer] [address] [place] [address] Kitchen Lead: Rafa Prieto MD Heparin Anti-Xa 0.29 IU/L Normal [facility] Comment on above: Performed By: #### T ROPI #### [address] [address] Kitchen Lead: Rafa Prieto MD MRSA, DNA, Nasalon MRSA, DNA, Nasal Negative Normal NEG [facility] Comment on above: Result Comment: NEGA TIVE: MRSA DNA not detected by nucleic acid amplification. Results should be used as an adjunct to nosocomial control efforts to identify patients needing enhanced precautions. The test is not intended to identify patients with staphylococcal infections. Results should not be used to guide or monitor treatment for MRSA infections. Performed By: #### M RSANO ####[facility] [address] [place] [address] Lab Director: Rafa Prieto MD Specimen Description .NASAL SWAB Normal [facility] Comment on above: Performed By: #### M RSANO ####[facility] [address] [place] [address] [phone] Director: Rafa Prieto MD Magnesiumon 01-01-2024 Magnesium [Mass/Vol] 1.7 mg/dL Normal 1.6-2.6 [facility] Comment on above: Performed By: #### B MPX, CDP, TROPI, MG ####[facility] [address]pdqcbuxt1717 [place] [address] Lab Director: Rafa Prieto MD Troponinon 01-01-2024 Troponin, High Sens 103 ng/L Critically high 0-22 [facility] Comment on above: Result Comment: High Sensitivity Troponin values cannot be compared with other Troponin methodologies. Previous Alert Value Reported Performed By: #### B MPX, CDP, TROPI, MG ####[facility] [address] [place] [address] Lab Director: Rafa Prieto MD Troponin, High Sens 107 ng/L Critically high 022 [facility] Comment on above: Result Comment: High Sensitivity Troponin values cannot be compared with other Troponin methodologies. Previous Alert Value Reported Performed By: #### T ROPI ####[facility] [address] [place] [address] [phone] Director: Rafa Prieto MD Troponin, High Sens 107 ng/L Critically high 022 [facility] Comment on above: Result Comment: High Sensitivity Troponin values cannot be compared with other Troponin methodologies. Previous Alert Value Reported Performed By: #### T ROPI #### [employer] [address] [place] [address] Kitchen Lead: Rafa Prieto MD Troponin, High Sens 104 ng/L Critically high 0-22 [facility] Comment on above: Result Comment: High Sensitivity Troponin values cannot be compared with other Troponin methodologies. Performed By: #### T ROPI #### [facility] [address] [place] [address] Kitchen Lead: Rafa Prieto MD Type + Screenon 01-01-2024 Type + Screen Sample Expiration 01/04/2024,2359 Arm Band Number [id number] ABO/Rh(D) A POSITIVE Antibody Screen NEGATIVE Normal [facility] Comment on above: Performed By: #### T YS ####[facility]Pifulrqxedsu[address] [place] [address] Lab Director: Rafa Prieto MD Urinalysis, Routineon 2023 Bilirubin, SemiQt,Ur Negative Normal NEG [facility] Comment on above: Performed By: #### H EPXA, PTT #### [facility] [address] [place] [address] Kitchen Lead: Rafa Prieto MD Blood, Urine LARGE Abnormal NEG [facility] Comment on above: Performed By: #### H EPXA, PTT #### [employer] [address] [place] [address] Kitchen Lead: Rafa Prieto MD Clarity (U) Clear Normal CLEAR [facility] Comment on above: Performed By: #### H EPXA, PTT #### [employer] [address] [place] [address] Kitchen Lead: Rafa Prieto MD Color (U) Dark Yellow Abnormal YEL [facility] Comment on above: Performed By: #### H EPXA, PTT #### [employer] [address] [place] [address] Kitchen Lead: Rafa Prieto MD Glucose Ql (U) Negative Normal NEG [facility] Comment on above: Performed By: #### H EPXA, PTT #### [facility] [employer] [address] [place] [address] Kitchen Lead: Rafa Prieto MD Ketones Ql (U) Negative Normal NEG [facility] Comment on above: Performed By: #### H EPXA, PTT #### [facility] [employer] [address] [place] [address] Kitchen Lead: Rafa Prieto MD Leukocyte esterase Test strip Ql (U) MODERATE Abnormal NEG [facility] Comment on above: Performed By: #### H EPXA, PTT #### [address] [address] Kitchen Lead: Rafa Prieto MD Nitrite,Ur Negative Normal NEG [facility] Comment on above: Performed By: #### H EPXA, PTT #### [address] [address] Kitchen Lead: Rafa Prieto MD PH,Ur 5.5 Normal 5.0-8.0 [facility] Comment on above: Performed By: #### H EPXA, PTT #### [facility] [employer] [address] [place] [address] Kitchen Lead: Rafa Prieto MD Protein Ql (U) TRACE Abnormal NEG [facility] Comment on above: Performed By: #### H EPXA, PTT #### [facility] [employer] [address] [place] [address] Kitchen Lead: Rafa Prieto MD Spec. [place],Ur 1.024 Normal 1.005-1.030 [facility] Comment on above: Performed By: #### H EPXA, PTT #### [facility] [address] Kitchen Lead: Rafa Prieto MD Urobilinogen,Ur ELEVATED Normal 0.0-1.0 [facility] Comment on above: Performed By: #### H EPXA, PTT #### [address] [address] Kitchen Lead: Rafa Prieto MD Urinalysis,Microon 4 Epithelial cells LM Ql (Urine sed) 5 TO 10 Normal 0-5 [facility] Comment on above: Performed By: #### H EPXA, PTT #### [address] [address] Kitchen Lead: Rafa Prieto MD Urine RBC's TOO NUMEROUS TO COUNT Normal 0-2 [facility] Comment on above: Performed By: #### H EPXA, PTT #### [address] [address] Kitchen Lead: Rafa Prieto MD Urine WBC's 10 TO 20 Normal 0-5 [facility] Comment on above: Performed By: #### H EPXA, PTT #### [address] [address] Kitchen Lead: Rafa Prieto MD DENNY Antinuclear Antibodieson 08-09-2023 Antinuclear Abs, IFA Negative Normal . [facility] Comment on above: Result Comment: Nega tive <1:80 Borderline 1:80 Positive >1:80 ICAP nomenclature: AC-0 For more information about Hep-2 cell patterns use ANApatterns.org, the official website for the International Consensus on Antinuclear Antibody (DENNY) Patterns (ICAP). Performed at: [facility] [id number] Kitchen Lead: Lester Nunez PhD, Phone: [phone] Performed By: #### A NA, [id number] #### [facility] , #### T4F, CRP, CK, CMP, ESR, CBC, TSH3 #### [address] C-Reactive Proteinon 023 C-Reactive Protein 0.5 mg/dL Normal 0.0-0.5 [facility] Comment on above: Performed By: #### A NA, [id number] #### [facility] , #### T4F, CRP, CK, CMP, ESR, CBC, TSH3 #### [address] Complete Blood Count Auto Di ffon 08-09-2023 Basophils (Bld) [#/Vol] 0.0 10*3/uL Normal 0.0-0.2 [facility] Comment on above: Performed By: #### A NA, [id number] #### [facility] , #### T4F, CRP, CK, CMP, ESR, CBC, TSH3 #### [place] [address] [place] Basophils/100 WBC (Bld) 0.6 % Normal . [facility] Comment on above: Performed By: #### A NA, [id number] #### [facility] , #### T4F, CRP, CK, CMP, ESR, CBC, TSH3 #### [place] [address] [place] Eosinophils (Bld) [#/Vol] 0.1 10*3/uL Normal 0.0-0.45 [facility] Comment on above: Performed By: #### A NA, [id number] #### [facility] , #### T4F, CRP, CK, CMP, ESR, CBC, TSH3 #### [place] [address] [place] Eosinophils/100 WBC (Bld) 1.4 % Normal . [facility] Comment on above: Performed By: #### A NA, [id number] #### [facility] , #### T4F, CRP, CK, CMP, ESR, CBC, TSH3 #### [address] Erythrocyte distribution width (RBC) [Ratio] 13.1 % Normal 12.0-14.8 [facility] Comment on above: Performed By: #### A NA, [id number] #### [facility] , #### T4F, CRP, CK, CMP, ESR, CBC, TSH3 #### [address] Hematocrit (Bld) [Volume fraction] 43.8 % Normal 38.8-50.0 [facility] Comment on above: Performed By: #### A NA, [id number] #### [facility] , #### T4F, CRP, CK, CMP, ESR, CBC, TSH3 #### [address] Hemoglobin (Bld) [Mass/Vol] 14.4 g/dL Normal 13.0-17.0 [facility] Comment on above: Performed By: #### A NA, [id number] #### [facility] , #### T4F, CRP, CK, CMP, ESR, CBC, TSH3 #### [address] Lymphocytes (Bld) [#/Vol] 1.7 10*3/uL Normal 1.00-4.8 [facility] Comment on above: Performed By: #### A NA, [id number] #### [facility] , #### T4F, CRP, CK, CMP, ESR, CBC, TSH3 #### [address] Lymphocytes/100 WBC (Bld) 24.1 % Normal . [facility] Comment on above: Performed By: #### A NA, [id number] #### [facility] , #### T4F, CRP, CK, CMP, ESR, CBC, TSH3 #### [address] MCH (RBC) [Entitic mass] 27.6 pg Normal 27.5-35.2 [facility] Comment on above: Performed By: #### A NA, [id number] #### [facility] , #### T4F, CRP, CK, CMP, ESR, CBC, TSH3 #### [address] MCV (RBC) [Entitic vol] 84.1 fL Normal 83.5-101 [facility] Comment on above: Performed By: #### A NA, [id number] #### [facility] , #### T4F, CRP, CK, CMP, ESR, CBC, TSH3 #### [address] Mean Corpuscular HGB Conc 32.8 g/dL Normal 32.5-35.6 [facility] Comment on above: Performed By: #### A NA, [id number] #### [facility] , #### T4F, CRP, CK, CMP, ESR, CBC, TSH3 #### [address] Monocytes (Bld) [#/Vol] 0.4 10*3/uL Normal 0.0-0.8 [facility] Comment on above: Performed By: #### A NA, [id number] #### [facility] , #### T4F, CRP, CK, CMP, ESR, CBC, TSH3 #### [address] Monocytes/100 WBC (Bld) 5.9 % Normal . [facility] Comment on above: Performed By: #### A NA, [id number] #### [facility] , #### T4F, CRP, CK, CMP, ESR, CBC, TSH3 #### [facility] [address] [place] [address] Neutrophils (Bld) [#/Vol] 4.9 10*3/uL Normal 1.8-7.7 [facility] Comment on above: Performed By: #### A NA, [id number] #### [facility] , #### T4F, CRP, CK, CMP, ESR, CBC, TSH3 #### [facility] [address] [place] [address] [place] Neutrophils/100 WBC (Bld) 68.0 % Normal . [facility] Comment on above: Performed By: #### A NA, [id number] #### [facility] , #### T4F, CRP, CK, CMP, ESR, CBC, TSH3 #### [facility] [address] [place] [address] NRBC% 0.2 /100{WBC} Normal 0-0.5 [facility] Comment on above: Performed By: #### A NA, [id number] #### [facility] , #### T4F, CRP, CK, CMP, ESR, CBC, TSH3 #### [address] Platelet mean volume (Bld) [Entitic vol] 10.9 fL High 6.6-10.1 [facility] Comment on above: Performed By: #### A NA, [id number] #### [facility] , #### T4F, CRP, CK, CMP, ESR, CBC, TSH3 #### [facility] [address] [place] [address] [place] Platelets (Bld) [#/Vol] 216 10*3/uL Normal 150-450 [facility] Comment on above: Performed By: #### A NA, [id number] #### [facility] , #### T4F, CRP, CK, CMP, ESR, CBC, TSH3 #### [facility] [address] [place] [address] [place] RBC (Bld) [#/Vol] 5.20 10*6/uL Normal 3.90-5.60 [facility] Comment on above: Performed By: #### A NA, [id number] #### [facility] , #### T4F, CRP, CK, CMP, ESR, CBC, TSH3 #### [address] WBC (Bld) [#/Vol] 7.1 10*3/uL Normal 4.1-10.5 [facility] Comment on above: Performed By: #### A NA, [id number] #### [facility] , #### T4F, CRP, CK, CMP, ESR, CBC, TSH3 #### [address] Comprehensive Metabolic Pane chery 08-09-2023 Albumin [Mass/Vol] 4.6 g/dL Normal 3.5-5.7 [facility] Comment on above: Performed By: #### A NA, [id number] #### [facility] , #### T4F, CRP, CK, CMP, ESR, CBC, TSH3 #### [facility] [address] [place] [address] Albumin/Globulin [Mass ratio] 1.3 {ratio} Normal [facility] Comment on above: Performed By: #### A NA, [id number] #### [facility] , #### T4F, CRP, CK, CMP, ESR, CBC, TSH3 #### [facility] [address] [place] [address] ALP [Catalytic activity/Vol] 44 U/L Normal 34-104 [facility] Comment on above: Performed By: #### A NA, [id number] #### [facility] , #### T4F, CRP, CK, CMP, ESR, CBC, TSH3 #### [address] ALT [Catalytic activity/Vol] 50 U/L Normal 7-52 [facility] Comment on above: Performed By: #### A NA, [id number] #### [facility] , #### T4F, CRP, CK, CMP, ESR, CBC, TSH3 #### [address] Anion gap [Moles/Vol] 14.9 mmol/L Normal 6.0-15.0 [facility] Comment on above: Performed By: #### A NA, [id number] #### [facility] , #### T4F, CRP, CK, CMP, ESR, CBC, TSH3 #### [facility] [address] [place] [address] AST [Catalytic activity/Vol] 33 U/L Normal 13-39 [facility] Comment on above: Performed By: #### A NA, [id number] #### [facility] , #### T4F, CRP, CK, CMP, ESR, CBC, TSH3 #### [facility] [address] [place] [address] Bilirubin [Mass/Vol] 0.4 mg/dL Normal 0.3-1.0 [facility] Comment on above: Performed By: #### A NA, [id number] #### [facility] , #### T4F, CRP, CK, CMP, ESR, CBC, TSH3 #### [facility] [address] [place] [address] Calcium [Mass/Vol] 10.2 mg/dL Normal 8.6-10.3 [facility] Comment on above: Performed By: #### A NA, [id number] #### [facility] , #### T4F, CRP, CK, CMP, ESR, CBC, TSH3 #### [facility] [address] [place] [address] Chloride [Moles/Vol] 97 mmol/L Low 98-107 [facility] Comment on above: Performed By: #### A NA, [id number] #### [facility] , #### T4F, CRP, CK, CMP, ESR, CBC, TSH3 #### [address] CO2 [Moles/Vol] 29.7 mmol/L Normal 21.0-31.0 [facility] Comment on above: Performed By: #### A NA, [id number] #### [facility] , #### T4F, CRP, CK, CMP, ESR, CBC, TSH3 #### [address] Creatinine [Mass/Vol] 0.80 mg/dL Normal 0.70-1.30 [facility] Comment on above: Performed By: #### A NA, [id number] #### [facility] , #### T4F, CRP, CK, CMP, ESR, CBC, TSH3 #### [address] GFR/1.73 sq M.predicted MDRD (S/P/Bld) [Vol rate/Area] mL/min/{1.73_m2} [facility] Comment on above: Performed By: #### A NA, [id number] #### [facility] , #### T4F, CRP, CK, CMP, ESR, CBC, TSH3 #### [address] Globulin (S) [Mass/Vol] 3.5 g/dL [facility] Comment on above: Performed By: #### A NA, [id number] #### [facility] , #### T4F, CRP, CK, CMP, ESR, CBC, TSH3 #### [address] Glucose [Mass/Vol] 157 mg/dL High 70-100 [facility] Comment on above: Result Comment: [facility] Glucose Reference Range is dependent on time and content of last meal. Glucose of more than 200 mg/dL in a nonstressed, ambulatory subject supports the diagnosis of Diabetes Mellitus. ADA recommended reference range Performed By: #### A NA, [id number] #### [facility] , #### T4F, CRP, CK, CMP, ESR, CBC, TSH3 #### [facility] [address] Potassium [Moles/Vol] 4.6 mmol/L Normal 3.5-5.1 [facility] Comment on above: Performed By: #### A NA, [id number] #### [facility] , #### T4F, CRP, CK, CMP, ESR, CBC, TSH3 #### [facility] [address] [place] [address] Protein [Mass/Vol] 8.1 g/dL Normal 6.4-8.9 [facility] Comment on above: Performed By: #### A NA, [id number] #### [facility] , #### T4F, CRP, CK, CMP, ESR, CBC, TSH3 #### [address] Sodium [Moles/Vol] 137 mmol/L Normal 136-145 [facility] Comment on above: Performed By: #### A NA, [id number] #### [facility] , #### T4F, CRP, CK, CMP, ESR, CBC, TSH3 #### [facility] [address] [place] [address] Urea nitrogen [Mass/Vol] 10 mg/dL Normal 7-25 [facility] Comment on above: Performed By: #### A NA, [id number] #### [facility] , #### T4F, CRP, CK, CMP, ESR, CBC, TSH3 #### [facility] [address] [place] [address] Creatine Kinaseon 08-09-2023 CK [Catalytic activity/Vol] 95 U/L Normal 30-223 [facility] Comment on above: Result Comment: PERF ORMED BY: [place] [address] PATHOLOGIST SUPERVISOR GEAR REPAIR JOSEPH SAUCEDA M.D. Performed By: #### A NA, [id number] #### [facility] , #### T4F, CRP, CK, CMP, ESR, CBC, TSH3 #### [address] Erythrocyte Sedimentation Ra baldo 08-09-2023 ESR (Bld) [Velocity] 30 mm/h High 0-19 [facility] Comment on above: Result Comment: PERF ORMED BY: [place] [address] PATHOLOGIST SUPERVISOR GEAR REPAIR JOSEPH SAUCEDA M.D. Performed By: #### A NA, [id number] #### [facility] , #### T4F, CRP, CK, CMP, ESR, CBC, TSH3 #### [address] Free T4 (Free Thyroxine)on 1 Free T4 [Mass/Vol] 0.87 ng/dL Normal 0.61-1.12 [facility] Comment on above: Performed By: #### A NA, [id number] #### [facility] , #### T4F, CRP, CK, CMP, ESR, CBC, TSH3 #### [address] HLA B27 Disease Associationo n 08-09-2023 HLA B27 Disease Association Positive Normal . [facility] Comment on above: Result Comment: HLA- B*27 Positive This patient is positive for HLA-B*27. This procedure rules out the B*27:06 and 27:09 alleles, which the literature suggests are not associated with spondyloarthropathies. B27 allele interpretation for all loci based on IMGT/HLA database version 3.44 This test was developed and its performance characteristics determined by [facility]. It has not been cleared or approved by the Food and Drug Administration. [facility] CLIA ID Number [id number] THis test was performed using Polymerase Chain Reaction (PCR) and Sequence Specific Oligonucleotide Probes (SSOP) technique. Sequence Based Typing (SBT) may be used as a supplemental method when necessary. If you have questions, please call [facility] customer service at or email at [email or web address]. Performed at: [address] [place] [id number] Kitchen Lead: Minerva Pearce PhD, Phone: [phone] PERFORMED BY: [place] [address] PATHOLOGIST SUPERVISOR GEAR REPAIR JOSEPH SAUCEDA M.D. Performed By: #### A NA, [id number] #### [facility] , #### T4F, CRP, CK, CMP, ESR, CBC, TSH3 #### [facility] [address] [place] [address] Thyroid Stimulating Hormoneo n 08-09-2023 TSH Qn 2.42 m[IU]/L Normal 0.45-5.33 [facility] Comment on above: Result Comment: PERF ORMED BY: [place] [address] PATHOLOGIST SUPERVISOR GEAR REPAIR JOSEPH SAUCEDA M.D. Performed By: #### A NA, [id number] #### [facility] , #### T4F, CRP, CK, CMP, ESR, CBC, TSH3 #### [facility] [address] [place] [address] XR thoracic spine 3V*on XR thoracic spine 3V* [facility] [place] [address] [place] [address] XRay Report Signed Patient: Vitaly Dobson MR#: [id number] : 1970 Acct:[id number] Age/Sex: 52 / M ADM Date: 08/09/23 Loc: ICXD Room: Type: [facility] Attending Dr: Edi Henriquez MD Copies to: Edi Henriquez MD Ordering Provider: Edi Henriquez MD Date of Service: 08/09/23 XR/XR lumbar spine 2-3V*: LOW BACK PAIN ([id number]) XR/XR thoracic spine 3V*: DISH VS ANKYLOSING SPONDYLITIS ([id number]) XR/XR si joints: LOW BACK PAIN CLINICAL [...] Vee Amanda M.D.08/09/2023 4:34 PM Dictation Location: [place] [address] Transcribed By: [facility] 08/09/23 1633 Dictated By: Vee Amanda MD 08/09/23 1608 Signed By: 08/09/23 6446 [facility] XR cervical spine 2-3Von XR cervical spine 2-3V [facility] [employer] Other XR cervical spine 2-3V [address] [facility] [employer] Other XR cervical spine 2-3[place] [address] [employer] Other XR cervical spine 2-3V XRay Report [employer] Other XR cervical spine 2-3V Signed [employer] Other XR cervical spine 2-3V Patient: VITALY DOBSON MR#: [id number] [employer] Other XR cervical spine 2-3V : 1970 Acct:[id number] [employer] Other XR cervical spine 2-3V Age/Sex: 52 / M ADM Date: 07/28/23 [employer] Other XR cervical spine 2-3V Loc: [facility] [employer] Other XR cervical spine 2-3V Attending Dr: Semaj Avery D.O. [employer] Other XR cervical spine 2-3V Ordering Physician: Semaj Avery D.O. [employer] Other XR cervical spine 2-3V Date of Service: 07/28/23 [employer] Other XR cervical spine 2-3V Accession Number(s): [id number] [employer] Other XR cervical spine 2-3V cc: Semaj Avery D.O. [employer] Other XR cervical spine 2-3V [address] [place] [address] [employer] Other XR cervical spine 2-3V [place] [address] [employer] Other XR cervical spine 2-3V [employer] Other XR cervical spine 2-3V Patient Name: [employer] Other XR cervical spine 2-3V VITALY DOBSON [employer] Other XR cervical spine 2-3V MRN: [facility]:[id number] date: 1970 Sex: M [employer] Other XR cervical spine 2-3V Assigned Patient Location: [facility] [employer] Other XR cervical spine 2-3V Current Patient Location: [facility] [employer] Other XR cervical spine 2-3V Accession/Order Number: [id number] [employer] Other XR cervical spine 2-3V Exam Date: 07/28/2023 11:15 Report Date: 07/28/2023 12:14 [employer] Other XR cervical spine 2-3V At the request of: [employer] Other XR cervical spine 2-3V SEMAJ BALL [employer] Other XR cervical spine 2-3V EXAMINATION: XR cervical spine 2-3V, XR lumbar spine 2-3V, XR thoracic spine [employer] Other XR cervical spine 2-3V 2V [employer] Other XR cervical spine 2-3V HISTORY: Scoliosis M41.20, Cervical Spondylosis M47.812 [employer] Other XR cervical spine 2-3V COMPARISON: No relevant comparison available. [employer] Other XR cervical spine 2-3V FINDINGS: [employer] Other XR cervical spine 2-3V BONES: Cervical spine demonstrates marked left convex curvature and mild [employer] Other XR cervical spine 2-3V reversal of normal lordotic curvature. Suspect degenerative changes versus [employer] Other XR cervical spine 2-3V osseous bridging of the facet joints at most levels. No appreciable fracture [employer] Other XR cervical spine 2-3V or [employer] Other XR cervical spine 2-3V spondylolisthesis [employer] Other XR cervical spine 2-3V Thoracic spine demonstrates moderate left convex curvature and exaggerated [employer] Other XR cervical spine 2-3V kyphosis. No appreciable fracture or spondylolisthesis. [employer] Other XR cervical spine 2-3V Lumbar spine demonstrates mild curvature at the thoracolumbar junction. [employer] Other XR cervical spine 2-3V Straightening of the normal lordotic curvature, and multilevel marked [employer] Other XR cervical spine 2-3V degenerative facet arthropathy. Bone encroachment on the L4-5 and L5-S1 neural [employer] Other XR cervical spine 2-3V foramen. [employer] Other XR cervical spine 2-3V DISC SPACES: Calcification of the interspinous ligaments throughout. Cervical [employer] Other XR cervical spine 2-3V spine multilevel mild disc space narrowing. Thoracic spine multilevel mild [employer] Other XR cervical spine 2-3V disc [employer] Other XR cervical spine 2-3V space narrowing. Lumbar spine and multilevel mild-moderate disc space [employer] Other XR cervical spine 2-3V narrowing. [employer] Other XR cervical spine 2-3V PARASPINOUS: No paraspinous abnormality is seen. [employer] Other XR cervical spine 2-3V Negative [employer] Other XR cervical spine 2-3V XR/XR cervical spine 2-3V [employer] Other XR cervical spine 2-3V IMPRESSION: [employer] Other XR cervical spine 2-3V 1. Limited examination due to patient needing to be imaged in the standing [employer] Other XR cervical spine 2-3V position. [employer] Other XR cervical spine 2-3V 2. Multilevel scoliotic curvature of the cervical and thoracic spine. [employer] Other XR cervical spine 2-3V 3. Thoracic kyphosis. [employer] [facility] Other XR cervical spine 2-3V 4. Findings favor diffuse ankylosing spondylitis throughout the cervical, [employer] Other XR cervical spine 2-3V thoracic, lumbar spine. [employer] Other XR cervical spine 2-3V 5. Multilevel mild degenerative disc disease. [employer] Other XR cervical spine 2-3V 6. Marked degenerative facet arthropathy of lumbar spine. [employer] Other XR cervical spine 2-3V Electronically authenticated by: DAMI GOMEZ Date: 07/28/2023 12:14 [employer] Other XR cervical spine 2-3V Dictated By: Dami Gomez M.D. [employer] Other XR cervical spine 2-3V Signed By: 07/28/23 [facility] [employer] Other XR cervical spine 2-3V DD/ 1214 [employer] Other XR cervical spine 2-3V TD/TT: [employer]: [employer] Other XR lumbar spine 2-3Von 07-28 XR lumbar spine 2-3V Accession Number(s): [id number] [employer] Other XR lumbar spine 2-3V Accession/Order Number: [id number] [employer] Other XR lumbar spine 2-3V XR/XR lumbar spine 2-3V [employer] Other XR thoracic spine 2Von 07-28 XR thoracic spine 2V Accession Number(s): [id number] [employer] Other XR thoracic spine 2V Accession/Order Number: [id number] [employer] Other XR thoracic spine 2V XR/XR thoracic spine 2V [employer] Other LIPID PROFILE SEND OUTon Cholesterol [Mass/Vol] 259 mg/dL Critically high 100-199 [facility] Comment on above: Performed By: #### B MPLC, LIPIDLC #### [facility] [address] [place] [address] [address] David Brown Cholesterol in HDL [Mass/Vol] 16 mg/dL Critically low >39 [facility] Comment on above: Performed By: #### B MPLC, LIPIDLC #### [facility] [address] [place] [address] [address] David Brown Comment: Normal [facility] Comment on above: Performed By: #### B MPLC, LIPIDLC #### [facility] [address] [place] [address] Dr. David Brown LDL Chol. Calc. ([facility]) Comment Abnormal 0-99 [facility] Comment on above: Result Comment: Trig lyceride result indicated is too high for an accurate LDL cholesterol estimation. Performed By: #### B MPLC, LIPIDLC #### [facility] [address] [place] [address] [address] David Brown Triglyceride [Mass/Vol] 2070 mg/dL Invalid Interpretation Code 0-149 [facility] Comment on above: Result Comment: Resu lts confirmed on dilution. Performed By: #### B MPLC, LIPIDLC #### [facility] [address] [place] [address] [address] David Brown VLDL Cholesterol, Calc Comment Abnormal 5-40 [facility] Comment on above: Result Comment: The calculation for the VLDL cholesterol is not valid when triglyceride level is >800 mg/dL. Performed By: #### B MPLC, LIPIDLC #### [facility] [address] [place] [address] Dr. David Brown PROF CHEM 8 ([facility]) SEND OUTon 02-04-2023 Calcium [Mass/Vol] 10.0 mg/dL Normal 8.7-10.2 [facility] Comment on above: Performed By: #### B MPLC, LIPIDLC #### [facility] [address] [place] [address] Dr. David Brown Chloride [Moles/Vol] 91 mmol/L Critically low 96-106 [facility] Comment on above: Performed By: #### B MPLC, LIPIDLC #### [facility] [address] [place] [address] Dr. David Brown CO2 [Moles/Vol] 24 mmol/L Normal 20-29 [facility] Comment on above: Performed By: #### B MPLC, LIPIDLC #### [facility] [address] [place] [address] Dr. David Brown Creatinine [Mass/Vol] 1.00 mg/dL Normal 0.76-1.27 [facility] Comment on above: Performed By: #### B MPLC, LIPIDLC #### [facility] [address] [place] [address] Dr. David Brown GFR/1.73 sq M.predicted among non-blacks MDRD (S/P/Bld) [Vol rate/Area] 90 mL/min/{1.73_m2} Normal >59 [facility] Comment on above: Performed By: #### B MPLC, LIPIDLC #### [facility] [address] [place] [address] Dr. David Brown Glucose [Mass/Vol] 205 mg/dL Critically high 70-99 [facility] Comment on above: Performed By: #### B MPLC, LIPIDLC #### [facility] [address] [place] [address] Dr. David Brown Potassium [Moles/Vol] 4.7 mmol/L Normal 3.5-5.2 [facility] Comment on above: Performed By: #### B MPLC, LIPIDLC #### [facility] [address] [place] [address] Dr. David Brown Sodium [Moles/Vol] 132 mmol/L Critically low 134-144 [facility] Comment on above: Performed By: #### B MPLC, LIPIDLC #### [facility] [address] [place] [address] Dr. David Brown Urea nitrogen [Mass/Vol] 18 mg/dL Normal 6-24 [facility] Comment on above: Performed By: #### B MPLC, LIPIDLC #### [facility] [address] [place] [address] Dr. David Brown Urea nitrogen/Creatinine [Mass ratio] 18 mg/mg Normal 9-20 [facility] Comment on above: Performed By: #### B MPLC, LIPIDLC #### [facility] [address] [place] [address] Dr. David Brown CBC AUTO DIFFon 02-03-2023 BASO # 0.1 103/ul Normal 0.0-0.1 [facility] Comment on above: Performed By: #### C BC #### [facility] [address] [place] [address] Dr. David Brown Basophils/100 WBC (Bld) 0.6 % Normal 0.2-2.0 [facility] Comment on above: Performed By: #### C BC #### [facility] [address] [place] [address] Dr. David Brown EO # 0.2 103/ul Normal 0.0-0.7 [facility] Comment on above: Performed By: #### C BC #### [facility] [address] [place] [address] Dr. David Brown Eosinophils/100 WBC (Bld) 2.2 % Normal 0.9-7.0 [facility] Comment on above: Performed By: #### C BC #### [facility] [address] [place] [address] Dr. David Brown Erythrocyte distribution width (RBC) [Ratio] 12.7 % Normal 11.0-15.0 [facility] Comment on above: Performed By: #### C BC #### [facility] [address] [place] [address] Dr. David Brown Hematocrit (Bld) [Volume fraction] 43.6 % Normal 42.0-54.0 [facility] Comment on above: Performed By: #### C BC #### [facility] [address] [place] [address] Dr. David Brown Hemoglobin (Bld) [Mass/Vol] 14.6 g/dL Normal 14.0-18.0 [facility] Comment on above: Performed By: #### C BC #### [facility] [address] [place] [address] Dr. David Brown IG # 0.03 10e3/ul Normal 0.00-0.03 [facility] Comment on above: Performed By: #### C BC #### [facility] [address] [place] [address] Dr. David Brown IG % 0.3 % Normal 0.0-0.5 [facility] Comment on above: Performed By: #### C BC #### [facility] [address] [place] [address] Dr. David Brown LYMPH # 3.6 103/ul Normal 1.2-3.8 [facility] Comment on above: Performed By: #### C BC #### [facility] [address] [place] [address] Dr. David Brown Lymphocytes/100 WBC (Bld) 37.8 % Normal 20.5-60.0 [facility] Comment on above: Performed By: #### C BC #### [facility] [address] [place] [address] Dr. David Brown MANUAL DIFF REQ NO Normal [facility] Comment on above: Performed By: #### C BC #### [facility] [address] [place] [address] Dr. David Brown MCH (RBC) [Entitic mass] 28.3 pg Normal 25.9-34.0 [facility] Comment on above: Performed By: #### C BC #### [facility] [address] [place] [address] Dr. David Brown MCHC (RBC) [Mass/Vol] 33.5 g/dL Normal 29.9-35.2 [facility] Comment on above: Performed By: #### C BC #### [facility] [address] [place] [address] Dr. David Brown MCV (RBC) [Entitic vol] 84.7 fL Normal 80.0-94.0 [facility] Comment on above: Performed By: #### C BC #### [facility] [address] [place] [address] Dr. David Brown MONO # 0.9 103/ul Critically high 0.3-0.8 [facility] Comment on above: Performed By: #### C BC #### [facility] [address] [place] [address] Dr. David Brown Monocytes/100 WBC (Bld) 9.6 % Normal 1.7-12.0 [facility] Comment on above: Performed By: #### C BC #### [facility] [address] [place] [address] Dr. David Brown NEUT # 4.8 103/ul Normal 1.4-6.5 [facility] Comment on above: Performed By: #### C BC #### [facility] [address] [place] [address] Dr. Daivd Brown Neutrophils/100 WBC (Bld) 49.5 % Normal 43.0-75.0 [facility] Comment on above: Performed By: #### C BC #### [facility] [address] [place] [address] Dr. David Brown Platelet mean volume (Bld) [Entitic vol] 12.0 fL Normal 9.5-13.5 [facility] Comment on above: Performed By: #### C BC #### [facility] [address] [place] [address] Dr. David Brown PLT 254 103/ul Normal 150-450 [facility] Comment on above: Performed By: #### C BC #### [facility] [address] [place] [address] [address] David Brown RBC 5.15 106/ul Normal 4.70-6.10 [facility] Comment on above: Performed By: #### C BC #### [facility] [address] [place] [address] Dr. David Brown WBC 9.6 103/ul Normal 4.0-11.0 [facility] Comment on above: Performed By: #### C BC #### [facility] [address] [place] [address] Dr. David Brown GLYCOHEMOGLOBIN A1Con 2022 ADA RECOMMENDATION SEE BELOW Normal [facility] Comment on above: Result Comment: ADA RECOMMENDED LIMIT 4.0 - 6.0 ADA THERAPEUTIC TARGET < 7.0 ACTION SUGGESTED > 7.0 Performed By: #### A 1C #### [facility] [address] [place] [address] Dr. David Brown Glucose [Mass/Vol] 212 mg/dL Normal [facility] Comment on above: Performed By: #### A 1C #### [facility] [address] [place] [address] Dr. David Brown HbA1c (Bld) [Mass fraction] 9.0 % Critically high 4.5-6.2 [facility] Comment on above: Performed By: #### A 1C #### [facility] [place] [facility] [address] [place] [address] Dr. David Brown MICROALBUMIN, RAND URon 03- mALB 5.5 mg/L Normal <=30.0 [facility] Comment on above: Performed By: #### M ALBR #### [facility] [place] [facility] [address] [place] [address] Dr. David Brown GLYCOHEMOGLOBIN A1Con 2021 ADA RECOMMENDATION SEE BELOW Normal [facility] Comment on above: Result Comment: ADA RECOMMENDED LIMIT 4.0 - 6.0 ADA THERAPEUTIC TARGET < 7.0 ACTION SUGGESTED > 7.0 Performed By: #### A 1C #### [facility] [place] [facility] [address] [place], [place] [address] Dr. David Brown Glucose [Mass/Vol] 194 mg/dL Normal [facility] Comment on above: Performed By: #### A 1C #### [facility] [place] [facility] [address] [place], [place] [address] Dr. David Brown HbA1c (Bld) [Mass fraction] 8.4 % Critically high 4.5-6.2 [facility] Comment on above: Performed By: #### A 1C #### [facility] [place] [facility] [address] [place], [place] [address] Dr. David Brown Vital Signs Date Time Vital Sign Value Performing Clinician Facility 07-28-2023 09:30-0400 Body height 160.02 cm Semaj Ball Other [facility] Other 07-28-2023 09:30-0400 Body mass index (BMI) [Ratio] 47.33 kg/m2 Semaj Ball Other [facility] Other 07-28-2023 09:30-0400 Body weight 121.2 kg Semaj Ball Other [facility] Other 07-28-2023 09:30-0400 Diastolic blood pressure 87 mm[Hg] Semaj Ball Other [facility] Other 07-28-2023 09:30-0400 Respiratory rate 12 /min Semaj Ball Other [facility] Other 07-28-2023 09:30-0400 Systolic blood pressure 132 mm[Hg] Semaj Ball Other [facility] Other 01-25-2023 12:30-0400 Body height 160.02 cm Semaj Ball Other [facility] Other 01-25-2023 12:30-0400 Body mass index (BMI) [Ratio] 47.75 kg/m2 Semaj Ball Other [facility] Other 01-25-2023 12:30-0400 Body weight 122.29 kg Semaj Avery Other [facility] Other 01-25-2023 12:30-0400 Diastolic blood pressure 82 mm[Hg] Semaj Avery Other [facility] Other 01-25-2023 12:30-0400 Respiratory rate 12 /min Semaj Avery Other [facility] Other 01-25-2023 12:30-0400 Systolic blood pressure 130 mm[Hg] Semaj Avery Other [facility] Other Encounters Encounter Date Encounter Type Care Provider Facility Start: 03-02-2024 End: 03-02-2024 ambulatory RODRICK R DOLCE Not Available Start: 01-01-2024 Evaluation and management of inpatient DELGADO GUIDO [facility] Start: 01-01-2024 End: 01-06-2024 Evaluation and management of inpatient SEMAJ AVERY [facility] Start: 11-18-2023 End: 11-18-2023 ambulatory RODRICK R DOLCE Not Available Start: 11-02-2023 End: 11-02-2023 ambulatory Semaj Avery Other [facility] Other Start: 11-02-2023 Telephone encounter Semaj Ball [facility] Start: 10-29-2023 End: 10-29-2023 ambulatory Semaj Bennie Other [facility] Other Start: 10-29-2023 Telephone encounter Semaj Ball [facility] Start: 10-27-2023 End: 10-27-2023 ambulatory Semaj Bennie Other [facility] Other Start: 10-27-2023 Telephone encounter Semaj Ball [facility] Start: 10-05-2023 End: 10-05-2023 ambulatory Semaj Avery Other [facility] Other Start: 10-05-2023 Telephone encounter Semaj Bennie MILES [facility] Start: 08-09-2023 End: 08-09-2023 ambulatory Edi Henriquez Facility:[facility] Start: 07-28-2023 End: 07-28-2023 ambulatory Semaj Avery Other [facility] Other Start: 07-28-2023 Office outpatient vi sit 25 minutes Semaj Avery [facility] Start: 07-28-2023 Telephone encounter Semaj Avery GINGER [facility] Start: 02-04-2023 End: 02-04-2023 ambulatory Semaj Avery Other [facility] Other Start: 02-04-2023 Telephone encounter Semaj Avery GINGER [facility] Start: 02-03-2023 Telephone encounter Semaj Avery GINGER [facility] Start: 02-03-2023 End: 02-04-[address] SEMAJ AVERY [facility] Other Start: 01-25-2023 End: 01-25-2023 ambulatory Semaj Avery Other [facility] Other Start: 01-25-2023 Encounter for genera l adult medical examination without abnormal findings Semaj Avery [facility] Start: 01-25-2023 Initial preventive exam Semaj Trinidad onofre [facility] Start: 01-25-2023 Patient encounter procedure Semaj Avery [facility] Start: 08-07-2022 End: 08-08-[address] SEMAJ AVERY Facility:[facility] Procedures Date Procedure Procedure Detail Performing Clinician Start: 02-03-[address] ROOT IN [facility] Comment on above: Performed By: #### P [facility] #### [facility] [place] [facility] [address] [place] [address] Dr. David Brown Immunizations Immunization Date Immunization Notes Care Provider Fa cili 09-04-2022 influenza, injectabl e, quadrivalent, contains preservative Semaj Avery Other [facility] Other 09-04-2022 COVID-19 Pfizer (bivalent) Semaj Avery Other [facility] Other 09-04-2022 COVID-19 Pfizer (Pediatric) Semaj Avery Other [facility] Other 09-04-2022 influenza virus vaccine, split virus (incl. purified surface antigen) Semaj Avery Other [facility] Other 04-18-2022 zoster vaccine recombinant Semaj Avery Other [facility] Other 04-18-2022 zoster vaccine, live Benjami n Ball Other [facility] Other 02-13-2022 COVID-19 Vaccine Pfi zer - Documentation Purposes Only Semaj Avery Other [facility] Other 02-13-2022 Prevnar 20 Semaj Avery Other [facility] Other 02-13-2022 zoster vaccine recombinant Semaj Avery Other [facility] Other 02-13-2022 zoster vaccine, live Benjami n Ball Other [facility] Other 09-30-2021 COVID-19 Vaccine Pfi zer - Documentation Purposes Only Semaj Avery Other [facility] Other 02-11-2021 COVID-19 Vaccine Pfi zer - Documentation Purposes Only Semaj Avery Other [facility] Other 01-20-2021 COVID-19 Vaccine Pfi zer - Documentation Purposes Only Semaj Avery Other [facility] Other 07-22-2020 influenza virus vaccine, split virus (incl. purified surface antigen) Semaj Avery Other [facility] Other 09-13-2017 tetanus and diphther ia toxoids, adsorbed, preservative free, for adult use (5 Lf of tetanus toxoid and 2 Lf of diphtheria toxoid) Semaj Avery Other [facility] Other Payers Date Payer Category Payer Self-pay 1970 Unknown [id number] 2.16.84 [id number] 1970 Unknown [id number] 2.16.84 [id number] 1970 Unknown [id number] 2.16. [id number] 1969 Unknown [id number] 2.16. [id number] 1969 Unknown [id number] 2.16.84 [id number] 1969 Unknown [id number] 2.16.84 [id number] 1960 Medicaid [id number] 2. [id number] 1960 Medicare [id number] 2.1 [id number] Unknown [id number] 2.16.8 [id number] Social History Date Type Detail Facility Sex Assigned At [facility] Other Clinical Notes 01-25-2023 to 11-02-2023 Note Date & Type Note Facility 11-02-2023 Evaluation note Encounter Date Diagnosis Assessment Notes Oct, Ankylosing spondylitis of thoracolumbar region (ICD-10 - M45.5) [facility] Other 12-22-2023 Evaluation note* Encounter Date Diagnosis Assessment Notes Treatment Notes Treatment Clinical Notes Oct, Type 2 diabetes mellitus with hyperglycemia, without long-term current use of insulin (ICD-10 - E11.65) [facility] Other 11-28-2023 Evaluation note* Encounter Date Diagnosis Assessment Notes Treatment Notes Treatment Clinical Notes Sep, Type 2 diabetes mellitus with hyperglycemia, without long-term current use of insulin (ICD-10 - E11.65) [facility] Other 09-20-2023 Evaluation note* Encounter Date Diagnosis [...] creams, lidocaine patches and muscle relaxants at [facility] Other 09-20-2023 NoteProcedure(s): XR cervical spine 2-3V [facility] Other 09-20-2023 [facility]Procedure: [facility] 09-20-2023 NoteProcedure(s): [facility] thoracic spine [facility] 09-20-2023 NoteProcedure: XR thoracic spine [facility] 09-20-2023 NoteProcedure(s): XR lumbar spine 2-[facility] Other 09-20-2023 NoteProcedure: XR lumbar spine 2-[facility] Other 03-30-2023 Evaluation note* Encounter Date Diagnosis Assessment Notes Treatment Notes Treatment Clinical Notes Jan, Mixed hyperlipidemia (ICD-10 - E78.2) [facility] Other 03-29-2023 Evaluation note* Encounter Date Diagnosis Assessment Notes Treatment Notes Treatment Clinical Notes Jan, Type 2 diabetes mellitus with hyperglycemia, without long-term current use of insulin (ICD-10 - E11.65) [facility] Other 03-20-2023 Evaluation note* Encounter Date Diagnosis [...] reviewed and amended by provider signed below. [facility] Other Evaluation noteNo InformationNort 4tiitoo Other History general Narrative - Reported* Type [...] HEM [place] Hospitalization History SEE SURGICAL HX [facility] Other Reason for referral (narrative)* Reason Referral for ankylos ing spondylitis Diagnosis 1 Ankylosing spondylit is of thoracolumbar region (M45.5) Diagnosis 2 Scoliosis (and kypho scoliosis), idiopathic (M41.20) Diagnosis 3 Cervical spondylosis (M47.812) Referral Organization [facility] Referring Provider First Name [...] medical treatment. Clinical Notes Include XR reports [facility] Other Summary Purpose Family History No Family [...] DATE CREATED AUTHOR 02/14/2023 [facility] DATE CREATED AUTHOR AUTHOR'S ORGANIZ ATION 08/18/2023 [facility] DATE CREATED AUTHOR AUTHOR'S ORGANIZ ATION 01/13/2024 [facility] [place] DATE CREATED AUTHOR AUTHOR'S ORGANIZ ATION 03/04/2024 [facility] EPIC FOR RECORDS PERTAINING TO [...] BE BASED ON THE PRIMARY CLINICAL RECORDS. [facility], [facility]. provides no warranty or guarantee of the accuracy or completeness of information in this document.
[2024-03-23 11:24] LABS: Estimated Average Glucose 151 mg/dL; Glycohemoglobin A1C 6.9 % (4.5-6.2)
[2024-03-23 11:29] LABS: Alanine Aminotransferase 29 U/L (16-63); Albumin Globulin Ratio 0.8; Albumin Level 3.7 g/dL (3.4-5.0); Alkaline Phosphatase 48 U/L (46-116); Anion Gap 12.7; Aspartate Amino Transferase 25 U/L (15-37); Bilirubin Total 0.5 mg/dL (0.2-1.0); Calcium 9.8 mg/dL (8.5-10.1); Carbon Dioxide 29.4 mmol/L (21.0-32.0); Chloride 98 mmol/L (98-107); Estimated GFR (African America >60 (>=60); Estimated GFR (Non-African Ame >60 (>=60); Globulin 4.9 g/dL; Glucose 150 mg/dL (74-106); Magnesium 2.1 mg/dL (1.8-2.4); Potassium 4.1 mmol/L (3.5-5.1); Sodium 136 mmol/L (136-145); Total Protein 8.6 g/dL (6.4-8.2)
== END 2024-03-23 10:20 | disposition home or self-care (01) ==
LOC: LAB 10:23
PROVIDERS: PCP Internal Medicine; Visit Provider Internal Medicine
DX: E11.65 Type 2 diabetes mellitus with hyperglycemia (principal); I10 Essential (primary) hypertension; I26.99 Other pulmonary embolism without acute cor pulmonale; D64.9 Anemia, unspecified; Z79.899 Other long term (current) drug therapy
CPT/HCPCS: 36415; 80053; 83036; 83735; 85025

== ENCOUNTER 2024-04-19 19:54 | Outpatient (OUT) | payer MEDICARE, MEDICAID, SELFPAY ==
--- OUTSIDE RECORDS SUMMARY | 2024-04-19 19:58 | XMS_ITS | CCD ---
Author Organization [facility] Care Team Providers Care [employer] Supervisor Name Role Phone Semaj Avery Unavailable BENNIE, DR PLATT Primary Care Unavailable BENNIE, DR PLATT Consulting Unavailable BENNIE, DR PLATT Attending Unavailable BENNIE, DR PLATT Admitting Unavailable BENNIE, DR PLATT Consulting Unavailable BENNIE, DR PLATT Attending Unavailable BENNIE, DR PLATT Admitting Unavailable BENNIE, DR PLATT Primary Care Unavailable Martinez, Edi Attending Unavailable Martinez, Edi Admitting Unavailable Bennie, Semaj Primary Care Unavailable SEMAJ AVERY Primary Care Unavailable TETE GUIDO Attending Unavailable JANNET NUNN Admitting Unavailable DELGADO GUIDO Consulting UnavailJANNET Vail Consulting Unavailable NURASHAHRIAR Hernandez Consulting Unavailable LATA, DELGADO BOOTHE Attending UnavailDELGADO Paz Referring UnavailSEMAJ Richards Primary Care Unavailable RODRICK [...] route three times daily as needed Ipratropium [place] 0.06 % 2 sprays in e ach [...] days Nov, Active take [address] 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] Onset: 02-05-2023 Episodic Other [...] Anion gap [Moles/Vol] 8 mmol/L Low 9-17 [facility] Comment on above: Performed By: #### B MPX, CDP ####[facility] [place], [place] [phone] Director: Rafa Prieto MD Calcium [Mass/Vol] 7.9 mg/dL Low 8.6-10.4 [facility] Comment on above: Performed By: #### B MPX, CDP ####[facility] [address] [place], [place] [phone] Director: Rafa Prieto MD Chloride [Moles/Vol] 97 mmol/L Low 98-107 [facility] Comment on above: Performed By: #### B MPX, CDP ####[facility] [address] [place], [place] [phone] Director: Rafa Prieto MD CO2 [Moles/Vol] 25 mmol/L Normal 20-31 [facility] Comment on above: Performed By: #### B MPX, CDP ####[facility] [address] [place], [place] [phone] Director: Rafa Prieto MD Creatinine [Mass/Vol] 0.6 mg/dL Low 0.7-1.2 [facility] Comment on above: Performed By: #### B MPX, CDP ####[facility] [address] [place], [place] [phone] Director: Rafa Prieto MD GFR/1.73 sq M.predicted among non-blacks MDRD (S/P/Bld) [Vol rate/Area] mL/min/{1.73_m2} Normal >60 [facility] Comment on above: Result Comment: These [...] secretion. Performed By: #### B MPX, CDP ####[employer] [address] [place], [place] [phone] Director: Rafa Prieto MD Glucose [Mass/Vol] 122 mg/dL High 70-99 [facility] Comment on above: Performed By: #### B MPX, CDP ####[facility] [address] [place], [place] [phone])[phone] Director: Rafa Prieto MD Potassium [Moles/Vol] 3.9 mmol/L Normal 3.7-5.3 [facility] Comment on above: Performed By: #### B MPX, CDP ####[facility] [address] [place], [place] [address])[phone] Director: Rafa Prieto MD Sodium [Moles/Vol] 130 mmol/L Low 135-144 [facility] Comment on above: Performed By: #### B MPX, CDP ####[facility] [address] [place], [place] [address])[phone] Director: Rafa Prieto MD Urea nitrogen [Mass/Vol] 10 mg/dL Normal 6-20 [facility] Comment on above: Performed By: #### B MPX, CDP ####[facility] [address] [place], [place] [address])[phone] Director: Rafa Prieto MD CBC with Diffon 01-06-2024 Abs. Basophil 0.04 k/uL Normal 0.00-0.20 [facility] Comment on above: Performed By: #### H EPXA, PTT #### [facility] [address] [place] [address] [employer] Operator: Rafa Prieto MD Abs.Imm.Granulocyte 0.03 k/uL Normal 0.00-0.30 [facility] Comment on above: Performed By: #### H EPXA, PTT #### [facility] [address] [place] [address] [employer] Operator: Rafa Prieto MD Abs.Neutrophil (Seg) 5.00 k/uL Normal 1.50-8.10 [facility] Comment on above: Performed By: #### H EPXA, PTT #### [facility] [employer] [address] [place] [address] [employer] Operator: Rafa Prieto MD Basophils/100 WBC (Bld) 1 % Normal 0-2 [facility] Comment on above: Performed By: #### H EPXA, PTT #### [facility] [employer] [address] [place] [address] [employer] Operator: Rafa Prieto MD Eosinophils (Bld) [#/Vol] 0.38 10*3/uL Normal 0.00-0.44 [facility] Comment on above: Performed By: #### H EPXA, PTT #### [facility] [employer] [address] [place] [address] [employer] Operator: Rafa Prieto MD Eosinophils/100 WBC (Bld) 5 % High 1-4 [facility] Comment on above: Performed By: #### H EPXA, PTT #### [facility] [employer] [address] [place] [address] [employer] Operator: Rafa Prieto MD Erythrocyte distribution width (RBC) [Ratio] 16.5 % High 11.8-14.4 [facility] Comment on above: Performed By: #### H EPXA, PTT #### [facility] [employer] [address] [place] [address] [employer] Operator: Rafa Prieto MD Hematocrit (Bld) [Volume fraction] 37.0 % Low 40.7-50.3 [facility] Comment on above: Performed By: #### H EPXA, PTT #### [facility] [employer] [address] [place] [address] [employer] Operator: Rafa Prieto MD Hemoglobin (Bld) [Mass/Vol] 10.7 g/dL Low 13.0-17.0 [facility] Comment on above: Performed By: #### H EPXA, PTT #### [address] [address] [employer] Operator: Rafa Prieto MD Immature granulocytes/100 WBC (Bld) 0 % Normal 0 [facility] Comment on above: Performed By: #### H EPXA, PTT #### [address] [address] [employer] Operator: Rafa Prieto MD Lymphocytes (Bld) [#/Vol] 1.55 10*3/uL Normal 1.10-3.70 [facility] Comment on above: Performed By: #### H EPXA, PTT #### [address] [address] [employer] Operator: Rafa Prieto MD Lymphocytes/100 WBC (Bld) 19 % Low 24-43 [facility] Comment on above: Performed By: #### H EPXA, PTT #### [address] [address] [employer] Operator: Rafa Prieto MD MCH (RBC) [Entitic mass] 24.0 pg Low 25.2-33.5 [facility] Comment on above: Performed By: #### H EPXA, PTT #### [address] [address] [employer] Operator: Rafa Prieto MD MCHC (RBC) [Mass/Vol] 28.9 g/dL Normal 28.4-34.8 [facility] Comment on above: Performed By: #### H EPXA, PTT #### [facility] [employer] [address] [place] [address] [employer] Operator: Rafa Prieto MD MCV (RBC) [Entitic vol] 83.0 fL Normal 82.6-102.9 [facility] Comment on above: Performed By: #### H EPXA, PTT #### [address] [address] [employer] Operator: Rafa Prieto MD Monocytes (Bld) [#/Vol] 0.99 10*3/uL Normal 0.10-1.20 [facility] Comment on above: Performed By: #### H EPXA, PTT #### [address] [address] [employer] Operator: Rafa Prieto MD Monocytes/100 WBC (Bld) 12 % Normal 3-12 [facility] Comment on above: Performed By: #### H EPXA, PTT #### [address] [address] [employer] Operator: Rafa Prieto MD Neutrophil (Seg) 63 % Normal 36-65 [facility] Comment on above: Performed By: #### H EPXA, PTT #### [address] [address] [employer] Operator: Rafa Prieto MD NRBC Automated 0.0 per 100 WBC Normal 0.0 [facility] Comment on above: Performed By: #### H EPXA, PTT #### [address] [address] [employer] Operator: Rafa Prieto MD Platelet mean volume (Bld) [Entitic vol] 10.8 fL Normal 8.1-13.5 [facility] Comment on above: Performed By: #### H EPXA, PTT #### [address] [address] [employer] Operator: Rafa Prieto MD Platelets (Bld) [#/Vol] 204 10*3/uL Normal 138-453 [facility] Comment on above: Performed By: #### H EPXA, PTT #### [address] [address] [employer] Operator: Rafa Prieto MD RBC (Bld) [#/Vol] 4.46 10*6/uL Normal 4.21-5.77 [facility] Comment on above: Performed By: #### H EPXA, PTT #### [facility] [place] [address] [employer] Operator: Rafa Prieto MD RBC morphology finding Nom (Bld) ANISOCYTOSIS PRESENT Normal [facility] Comment on above: Performed By: #### H EPXA, PTT #### [facility] [place] [address] [employer] Operator: Rafa Prieto MD WBC (Bld) [#/Vol] 8.0 10*3/uL Normal 3.5-11.3 [facility] Comment on above: Performed By: #### H EPXA, PTT #### [facility] [address] [place] [address] [employer] Operator: Rafa Prieto MD Cult,Urineon 01-06-2024 Cult,Urine Specimen Description .CLEAN CATCH URINE Culture NO GROWTH Report Status FINAL 01/06/2024 Normal [facility] Comment on above: Performed By: #### U RC #### [address] [address] [employer] Operator: Rafa Prieto MD Glucose,Whole Bloodon 2023 Glucose [Mass/Vol] 174 mg/dL High 75-110 [facility] Glucose [Mass/Vol] 192 mg/dL High 75-110 [facility] Glucose [Mass/Vol] 119 mg/dL High 75-110 [facility] Heparin Anti-Xaon 01-06-2024 Heparin Anti-Xa 0.41 IU/L Normal [facility] Comment on above: Performed By: #### H EPXA ####[facility] [address] [place] [address] Lab Director: Rafa Prieto MD Basic Metab w/rfx MGon 01-05 Anion gap [Moles/Vol] 11 mmol/L Normal 9-17 [facility] Comment on above: Performed By: #### U RC #### [address] [address] [employer]: Rafa Prieto MD Calcium [Mass/Vol] 7.9 mg/dL Low 8.6-10.4 [facility] Comment on above: Performed By: #### U RC #### [address] [address] [employer]: Rafa Prieto MD Chloride [Moles/Vol] 99 mmol/L Normal 98-107 [facility] Comment on above: Performed By: #### U RC #### [address] [address] [employer] Operator: Rafa Prieto MD CO2 [Moles/Vol] 24 mmol/L Normal 20-31 [facility] Comment on above: Performed By: #### U RC #### [address] [address] [employer]: Rafa Prieto MD Creatinine [Mass/Vol] 0.6 mg/dL Low 0.7-1.2 [facility] Comment on above: Performed By: #### U RC #### [address] [address] [employer]: Rafa Prieto MD GFR/1.73 sq M.predicted among non-blacks MDRD (S/P/Bld) [Vol rate/Area] mL/min/{1.73_m2} Normal >60 [facility] Comment on above: Result Comment: These [...] secretion. Performed By: #### U RC #### [address] [address] [employer]: Rafa Prieto MD Glucose [Mass/Vol] 97 mg/dL Normal 70-99 [facility] Comment on above: Performed By: #### U RC #### [address] [address] [employer] Operator: Rafa Prieto MD Potassium [Moles/Vol] 4.3 mmol/L Normal 3.7-5.3 [facility] Comment on above: Performed By: #### U RC #### [address] [address] [employer]: Rafa Prieto MD Sodium [Moles/Vol] 134 mmol/L Low 135-144 [facility] Comment on above: Performed By: #### U RC #### [address] [address] [employer]: Rafa Prieto MD Urea nitrogen [Mass/Vol] 10 mg/dL Normal 6-20 [facility] Comment on above: Performed By: #### U RC #### [address] [address] [employer]: Rafa Prieto MD CBC with Diffon 01-05-2024 Abs. Basophil 0.00 k/uL Normal 0.0-0.2 [facility] Comment on above: Performed By: #### U RC #### [address] [address] [employer]: Rafa Prieto MD Abs.Imm.Granulocyte 0.00 k/uL Normal 0.00-0.30 [facility] Comment on above: Performed By: #### U RC #### [address] [place] [address] [employer]: Rafa Prieto MD Abs.Neutrophil (Seg) 4.99 k/uL Normal 1.8-7.7 [facility] Comment on above: Performed By: #### U RC #### [address] [address] [employer]: Rafa Prieto MD Basophils/100 WBC (Bld) 0 % Normal 0-2 [facility] Comment on above: Performed By: #### U RC #### [address] [address] [employer]: Rafa Prieto MD Eosinophils (Bld) [#/Vol] 0.39 10*3/uL Normal 0.0-0.4 [facility] Comment on above: Performed By: #### U RC #### [address] [address] [employer]: Rafa Prieto MD Eosinophils/100 WBC (Bld) 5 % High 1-4 [facility] Comment on above: Performed By: #### U RC #### [address] [address] [employer]: Rafa Prieto MD Immature granulocytes/100 WBC (Bld) 0 % Normal 0 [facility] Comment on above: Performed By: #### U RC #### [address] [address] [employer]: Rafa Prieto MD Lymphocytes (Bld) [#/Vol] 1.48 10*3/uL Normal 1.0-4.8 [facility] Comment on above: Performed By: #### U RC #### [address] [address] [employer]: Rafa Prieto MD Lymphocytes/100 WBC (Bld) 19 % Low 24-44 [facility] Comment on above: Performed By: #### U RC #### [address] [address] [employer] Operator: Rafa Prieto MD Monocytes (Bld) [#/Vol] 0.94 10*3/uL High 0.1-0.8 [facility] Comment on above: Performed By: #### U RC #### [address] [address] [employer]: Rafa Prieto MD Monocytes/100 WBC (Bld) 12 % High 1-7 [facility] Comment on above: Performed By: #### U RC #### [address] [address] [employer]: Rafa Prieto MD Morphology [place] (Bld) [Interp] ANISOCYTOSIS PRESENT Normal [facility] Comment on above: Performed By: #### U RC #### [address] [address] [employer]: Rafa Prieto MD Neutrophil (Seg) 64 % Normal 36-66 [facility] Comment on above: Performed By: #### U RC #### [address] [address] [employer]: Rafa Prieto MD Erythrocyte distribution width (RBC) [Ratio] 16.6 % High 11.8-14.4 [facility] Comment on above: Performed By: #### U RC #### [address] [address] [employer]: Rafa Prieto MD Hematocrit (Bld) [Volume fraction] 38.6 % Low 40.7-50.3 [facility] Comment on above: Performed By: #### U RC #### [address] [address] [employer]: Rafa Prieto MD Hemoglobin (Bld) [Mass/Vol] 10.9 g/dL Low 13.0-17.0 [facility] Comment on above: Performed By: #### U RC #### [address] [address] [employer]: Rafa Prieto MD MCH (RBC) [Entitic mass] 24.0 pg Low 25.2-33.5 [facility] Comment on above: Performed By: #### U RC #### [address] [address] [employer]: Rafa Prieto MD MCHC (RBC) [Mass/Vol] 28.2 g/dL Low 28.4-34.8 [facility] Comment on above: Result Comment: TEST CONFIRMED Performed By: #### U RC #### [address] [address] [employer]: Rafa Prieto MD MCV (RBC) [Entitic vol] 85.0 fL Normal 82.6-102.9 [facility] Comment on above: Performed By: #### U RC #### [address] [address] [employer]: Rafa Prieto MD NRBC Automated 0.0 per 100 WBC Normal 0.0 [facility] Comment on above: Performed By: #### U RC #### [address] [address] [employer]: Rafa Prieto MD Platelet mean volume (Bld) [Entitic vol] 11.9 fL Normal 8.1-13.5 [facility] Comment on above: Performed By: #### U RC #### [address] [address] [employer]: Rafa Prieto MD Platelets (Bld) [#/Vol] 192 10*3/uL Normal 138-453 [facility] Comment on above: Performed By: #### U RC #### [address] [address] [employer]: Rafa Prieto MD RBC (Bld) [#/Vol] 4.54 10*6/uL Normal 4.21-5.77 [facility] Comment on above: Performed By: #### U RC #### [address] [address] [employer]: Rafa Prieto MD WBC (Bld) [#/Vol] 7.8 10*3/uL Normal 3.5-11.3 [facility] Comment on above: Performed By: #### U RC #### [address] [address] [employer]: Rafa Prieto MD Glucose,Whole Bloodon 2023 Glucose [Mass/Vol] 147 mg/dL High 75-110 [facility] Glucose [Mass/Vol] 178 mg/dL High 75-110 [facility] Glucose [Mass/Vol] 158 mg/dL High 75-110 [facility] Glucose [Mass/Vol] 106 mg/dL Normal 75-110 [facility] Heparin Anti-Xaon 01-05-2024 Heparin Anti-Xa 0.41 IU/L Normal [facility] Comment on above: Performed By: #### U RC #### [address] [address] [employer]: Rafa Prieto MD Basic Metab w/rfx MGon 01-04 Anion gap [Moles/Vol] 8 mmol/L Low 9-17 [facility] Comment on above: Performed By: #### H EPXA, PTT #### [address] [address] [employer]: Rafa Prieto MD Calcium [Mass/Vol] 7.7 mg/dL Low 8.6-10.4 [facility] Comment on above: Performed By: #### H EPXA, PTT #### [facility] [place] [address] [employer]: Rafa Prieto MD Chloride [Moles/Vol] 98 mmol/L Normal 98-107 [facility] Comment on above: Performed By: #### H EPXA, PTT #### [facility] [address] [place] [address] [employer]: Rafa Prieto MD CO2 [Moles/Vol] 26 mmol/L Normal 20-31 [facility] Comment on above: Performed By: #### H EPXA, PTT #### [facility] [address] [place] [address] [employer]: Rafa Prieto MD Creatinine [Mass/Vol] 0.6 mg/dL Low 0.7-1.2 [facility] Comment on above: Performed By: #### H EPXA, PTT #### [facility] [address] [place] [address] [employer] Operator: Rafa Prieto MD GFR/1.73 sq M.predicted among non-blacks MDRD (S/P/Bld) [Vol rate/Area] mL/min/{1.73_m2} Normal >60 [facility] Comment on above: Result Comment: These [...] Performed By: #### H EPXA, PTT #### [address] [address] [employer]: Rafa Prieto MD Glucose [Mass/Vol] 94 mg/dL Normal 70-99 [facility] Comment on above: Performed By: #### H EPXA, PTT #### [facility] [address] [place] [address] [employer] Operator: Rafa Prieto MD Potassium [Moles/Vol] 3.9 mmol/L Normal 3.7-5.3 [facility] Comment on above: Performed By: #### H EPXA, PTT #### [facility] [address] [place] [address] [employer]: Rafa Prieto MD Sodium [Moles/Vol] 132 mmol/L Low 135-144 [facility] Comment on above: Performed By: #### H EPXA, PTT #### [employer] [address] [place] [address] [employer]: Rafa Prieto MD Urea nitrogen [Mass/Vol] 12 mg/dL Normal 6-20 [facility] Comment on above: Performed By: #### H EPXA, PTT #### [facility] [address] [place] [address] [employer]: Rafa Prieto MD CBC with Diffon 01-04-2024 Abs. Basophil 0.04 k/uL Normal 0.00-0.20 [facility] Comment on above: Performed By: #### H EPXA, PTT #### [facility] [address] [place] [address] [employer]: Rafa Prieto MD Abs.Imm.Granulocyte 0.04 k/uL Normal 0.00-0.30 [facility] Comment on above: Performed By: #### H EPXA, PTT #### [facility] [address] [place] [address] [employer]: Rafa Prieto MD Abs.Neutrophil (Seg) 5.71 k/uL Normal 1.50-8.10 [facility] Comment on above: Performed By: #### H EPXA, PTT #### [facility] [employer] [address] [place] [address] [employer]: Rafa Prieto MD Basophils/100 WBC (Bld) 0 % Normal 0-2 [facility] Comment on above: Performed By: #### H EPXA, PTT #### [facility] [employer] [address] [place] [address] [employer]: Rafa Prieto MD Eosinophils (Bld) [#/Vol] 0.30 10*3/uL Normal 0.00-0.44 [facility] Comment on above: Performed By: #### H EPXA, PTT #### [facility] [employer] [address] [place] [address] [employer]: Rafa Prieto MD Eosinophils/100 WBC (Bld) 3 % Normal 1-4 [facility] Comment on above: Performed By: #### H EPXA, PTT #### [facility] [address] [place] [address] [employer]: Rafa Prieto MD Erythrocyte distribution width (RBC) [Ratio] 16.1 % High 11.8-14.4 [facility] Comment on above: Performed By: #### H EPXA, PTT #### [facility] [address] [place] [address] [employer]: Rafa Prieto MD Hematocrit (Bld) [Volume fraction] 36.0 % Low 40.7-50.3 [facility] Comment on above: Performed By: #### H EPXA, PTT #### [facility] [address] [place] [address] [employer]: Rafa Prieto MD Hemoglobin (Bld) [Mass/Vol] 10.5 g/dL Low 13.0-17.0 [facility] Comment on above: Performed By: #### H EPXA, PTT #### [facility] [address] [place] [address] [employer]: Rafa Prieto MD Immature granulocytes/100 WBC (Bld) 0 % Normal 0 [facility] Comment on above: Performed By: #### H EPXA, PTT #### [address] [address] [employer]: Rafa Prieto MD Lymphocytes (Bld) [#/Vol] 1.76 10*3/uL Normal 1.10-3.70 [facility] Comment on above: Performed By: #### H EPXA, PTT #### [address] [address] [employer]: Rafa Prieto MD Lymphocytes/100 WBC (Bld) 20 % Low 24-43 [facility] Comment on above: Performed By: #### H EPXA, PTT #### [address] [address] [employer]: Rafa Prieto MD MCH (RBC) [Entitic mass] 24.1 pg Low 25.2-33.5 [facility] Comment on above: Performed By: #### H EPXA, PTT #### [address] [address] [employer]: Rafa Prieto MD MCHC (RBC) [Mass/Vol] 29.2 g/dL Normal 28.4-34.8 [facility] Comment on above: Performed By: #### H EPXA, PTT #### [address] [address] [employer]: Rafa Prieto MD MCV (RBC) [Entitic vol] 82.8 fL Normal 82.6-102.9 [facility] Comment on above: Performed By: #### H EPXA, PTT #### [address] [address] [employer]: Rafa Prieto MD Monocytes (Bld) [#/Vol] 1.12 10*3/uL Normal 0.10-1.20 [facility] Comment on above: Performed By: #### H EPXA, PTT #### [address] [address] [employer]: Rafa Prieto MD Monocytes/100 WBC (Bld) 13 % High 3-12 [facility] Comment on above: Performed By: #### H EPXA, PTT #### [address] [address] [employer]: Rafa Prieto MD Neutrophil (Seg) 64 % Normal 36-65 [facility] Comment on above: Performed By: #### H EPXA, PTT #### [address] [address] [employer]: Rafa Prieto MD NRBC Automated 0.0 per 100 WBC Normal 0.0 [facility] Comment on above: Performed By: #### H EPXA, PTT #### [address] [address] [employer]: Rafa Prieto MD Platelet mean volume (Bld) [Entitic vol] 11.1 fL Normal 8.1-13.5 [facility] Comment on above: Performed By: #### H EPXA, PTT #### [address] [address] [employer]: Rafa Prieto MD Platelets (Bld) [#/Vol] 207 10*3/uL Normal 138-453 [facility] Comment on above: Performed By: #### H EPXA, PTT #### [address] [address] [employer]: Rafa Prieto MD RBC (Bld) [#/Vol] 4.35 10*6/uL Normal 4.21-5.77 [facility] Comment on above: Performed By: #### H EPXA, PTT #### [facility] [address] [place] [address] [employer]: Rafa Prieto MD RBC morphology finding Nom (Bld) ANISOCYTOSIS PRESENT Normal [facility] Comment on above: Performed By: #### H EPXA, PTT #### [facility] [address] [place] [address] [employer]: Rafa Prieto MD WBC (Bld) [#/Vol] 9.0 10*3/uL Normal 3.5-11.3 [facility] Comment on above: Performed By: #### H EPXA, PTT #### [facility] [employer] [address] [place] [address]07 [employer]: Rafa Prieto MD Glucose,Whole Bloodon 2023 Glucose [Mass/Vol] 143 mg/dL High 75-110 [facility] Glucose [Mass/Vol] 150 mg/dL High 75-110 [facility] Hemoglobin A1Con 01-04-2024 Glucose [Mass/Vol] 140 mg/dL Normal [facility] Comment on above: Result Comment: The ADA and AACC recommend providing the estimated average glucose result to permit better patient understanding of their HBA1c result. Performed By: #### H EPXA, PTT #### [facility] [address] [place] [address] [employer]: Rafa Prieto MD HbA1c (Bld) [Mass fraction] 6.5 % High 4.0-6.0 [facility] Comment on above: Performed By: #### H EPXA, PTT #### [facility] [address] [place] [address] [employer]: Rafa Prieto MD Heparin Anti-Xaon 01-04-2024 Heparin Anti-Xa 0.53 IU/L Normal [facility] Comment on above: Performed By: #### T ROPI #### [address] [address] [employer]: Rafa Prieto MD Heparin Anti-Xa 0.65 IU/L Normal [facility] Comment on above: Performed By: #### U RC #### [address] [address] [employer]: Rafa Prieto MD Heparin Anti-Xa 0.29 IU/L Normal [facility] Comment on above: Performed By: #### H EPXA, PTT #### [address] [address] [employer]: Rafa Prieto MD Basic Metab w/rfx MGon 01-03 Anion gap [Moles/Vol] 8 mmol/L Low 9-17 [facility] Comment on above: Performed By: #### H EPXA, PTT #### [address] [address] [employer]: Rafa Prieto MD Calcium [Mass/Vol] 7.8 mg/dL Low 8.6-10.4 [facility] Comment on above: Performed By: #### H EPXA, PTT #### [facility] [address] [place] [address] [employer]: Rafa Prieto MD Chloride [Moles/Vol] 94 mmol/L Low 98-107 [facility] Comment on above: Performed By: #### H EPXA, PTT #### [facility] [address] [place] [address] [employer]: Rafa Prieto MD CO2 [Moles/Vol] 25 mmol/L Normal 20-31 [facility] Comment on above: Performed By: #### H EPXA, PTT #### [facility] [address] [place] [address] [employer]: Rafa Prieto MD Creatinine [Mass/Vol] 0.6 mg/dL Low 0.7-1.2 [facility] Comment on above: Performed By: #### H EPXA, PTT #### [facility] [address] [place] [address] [employer]: Rafa Prieto MD GFR/1.73 sq M.predicted among non-blacks MDRD (S/P/Bld) [Vol rate/Area] mL/min/{1.73_m2} Normal >60 [facility] Comment on above: Result Comment: These [...] Performed By: #### H EPXA, PTT #### [facility] [address] [place] [address] [employer]: Rafa Prieto MD Glucose [Mass/Vol] 108 mg/dL High 70-99 [facility] Comment on above: Performed By: #### H EPXA, PTT #### [facility] [address] [place] [address] [employer]: Rafa Prieto MD Potassium [Moles/Vol] 3.7 mmol/L Normal 3.7-5.3 [facility] Comment on above: Performed By: #### H EPXA, PTT #### [facility] [address] [place] [address] [employer]: Rafa Prieto MD Sodium [Moles/Vol] 127 mmol/L Low 135-144 [facility] Comment on above: Performed By: #### H EPXA, PTT #### [facility] [address] [place] [address] [employer]: Rafa Prieto MD Urea nitrogen [Mass/Vol] 15 mg/dL Normal 6-20 [facility] Comment on above: Performed By: #### H EPXA, PTT #### [facility] [address] [place] [address]3578 [employer]: Rafa Prieto MD Brain Natri. Peptideon 01-03 Natriuretic peptide B (Bld) [Mass/Vol] 1253 pg/mL High <300 [facility] Comment on above: Result Comment: An age-independent cutoff point of 300 pg/ml has a 98% negative predictive value excluding acute heart failure. Performed By: #### H EPXA, BNP, TROPI ####[facility] [address] [place] [address])[phone] Director: Rafa Prieto MD CBC with Diffon 01-03-2024 Abs. Basophil 0.05 k/uL Normal 0.00-0.20 [facility] Comment on above: Performed By: #### H EPXA, PTT #### [facility] [address] [place] [address]66 [employer]: Rafa Prieto MD Abs.Imm.Granulocyte <0.03 Normal 0.00-0.30 [facility] Comment on above: Performed By: #### H EPXA, PTT #### [facility] [address] [place] [address]261 [employer]: Rafa Prieto MD Abs.Neutrophil (Seg) 4.63 k/uL Normal 1.50-8.10 [facility] Comment on above: Performed By: #### H EPXA, PTT #### [facility] [address] [place] [address] [employer]: Rafa Prieto MD Basophils/100 WBC (Bld) 1 % Normal 0-2 [facility] Comment on above: Performed By: #### H EPXA, PTT #### [facility] [address] [place] [address]93 [employer]: Rafa Prieto MD Eosinophils (Bld) [#/Vol] 0.23 10*3/uL Normal 0.00-0.44 [facility] Comment on above: Performed By: #### H EPXA, PTT #### [address] [address] [employer]: Rafa Prieto MD Eosinophils/100 WBC (Bld) 3 % Normal 1-4 [facility] Comment on above: Performed By: #### H EPXA, PTT #### [facility] [address] [place] [address] [employer]: Rafa Prieto MD Erythrocyte distribution width (RBC) [Ratio] 16.2 % High 11.8-14.4 [facility] Comment on above: Performed By: #### H EPXA, PTT #### [facility] [address] [place] [address]1805 [employer]: Rafa Prieto MD Hematocrit (Bld) [Volume fraction] 37.7 % Low 40.7-50.3 [facility] Comment on above: Performed By: #### H EPXA, PTT #### [facility] [address] [place] [address] [employer]: Rafa Prieto MD Hemoglobin (Bld) [Mass/Vol] 10.9 g/dL Low 13.0-17.0 [facility] Comment on above: Performed By: #### H EPXA, PTT #### [facility] [address] [place] [address]8057 [employer]: Rafa Prieto MD Immature granulocytes/100 WBC (Bld) 0 % Normal 0 [facility] Comment on above: Performed By: #### H EPXA, PTT #### [facility] [address] [place] [address] [phone] [employer]: Rafa Prieto MD Lymphocytes (Bld) [#/Vol] 1.96 10*3/uL Normal 1.10-3.70 [facility] Comment on above: Performed By: #### H EPXA, PTT #### [address] [address] [employer]: Rafa Prieto MD Lymphocytes/100 WBC (Bld) 24 % Normal 24-43 [facility] Comment on above: Performed By: #### H EPXA, PTT #### [address] [address] [employer]: Rafa Prieto MD MCH (RBC) [Entitic mass] 24.2 pg Low 25.2-33.5 [facility] Comment on above: Performed By: #### H EPXA, PTT #### [address] [address] [employer]: Rafa Prieto MD MCHC (RBC) [Mass/Vol] 28.9 g/dL Normal 28.4-34.8 [facility] Comment on above: Performed By: #### H EPXA, PTT #### [address] [address] [employer]: Rafa Prieto MD MCV (RBC) [Entitic vol] 83.6 fL Normal 82.6-102.9 [facility] Comment on above: Performed By: #### H EPXA, PTT #### [address] [address] [employer]: Rafa Prieto MD Monocytes (Bld) [#/Vol] 1.23 10*3/uL High 0.10-1.20 [facility] Comment on above: Performed By: #### H EPXA, PTT #### [address] [address] [employer]: Rafa Prieto MD Monocytes/100 WBC (Bld) 15 % High 3-12 [facility] Comment on above: Performed By: #### H EPXA, PTT #### [facility] [address] [place] [address]608 [employer]: Rafa Prieto MD Neutrophil (Seg) 57 % Normal 36-65 [facility] Comment on above: Performed By: #### H EPXA, PTT #### [address] [address] [employer]: Rafa Prieto MD NRBC Automated 0.0 per 100 WBC Normal 0.0 [facility] Comment on above: Performed By: #### H EPXA, PTT #### [address] [address] [employer]: Rafa Prieto MD Platelet mean volume (Bld) [Entitic vol] 10.8 fL Normal 8.1-13.5 [facility] Comment on above: Performed By: #### H EPXA, PTT #### [address] [address] [employer]: Rafa Prieto MD Platelets (Bld) [#/Vol] 194 10*3/uL Normal 138-453 [facility] Comment on above: Performed By: #### H EPXA, PTT #### [address] [address] [employer]: Rafa Prieto MD RBC (Bld) [#/Vol] 4.51 10*6/uL Normal 4.21-5.77 [facility] Comment on above: Performed By: #### H EPXA, PTT #### [address] [address] [employer]: Rafa Prieto MD RBC morphology finding Nom (Bld) ANISOCYTOSIS PRESENT Normal [facility] Comment on above: Performed By: #### H EPXA, PTT #### [facility] [address] [place] [address] [employer]: Rafa Prieto MD WBC (Bld) [#/Vol] 8.1 10*3/uL Normal 3.5-11.3 [facility] Comment on above: Performed By: #### H EPXA, PTT #### [address] [address] [employer]: Rafa Prieto MD Glucose,Whole Bloodon 2023 Glucose [Mass/Vol] 143 mg/dL High 75-110 [facility] Glucose [Mass/Vol] 107 mg/dL Normal 75-110 [facility] Heparin Anti-Xaon 01-03-2024 Heparin Anti-Xa 0.48 IU/L Normal [facility] Comment on above: Performed By: #### H EPXA, BNP, TROPI ####[address] [address] Lab Director: Rafa Prieto MD Osmolalityon 01-03-2024 Osmolality [Osmolality] 280 mosm/kg Normal 275-295 [facility] Comment on above: Performed By: #### O SMO, REJEC ####[address] [address] Lab Director: Rafa Prieto MD Osmolality, Urineon 01-03-20 24 Osmolality - Urine 293 mOsm/kg Normal 80-1300 [facility] Comment on above: Performed By: #### U RC #### [address] [address] [employer]: Rafa Prieto MD Sodium, Random Uron 01-03-20 24 Na Conc. Urine <20 Normal [facility] Comment on above: Result Comment: No n ormal range established. Performed By: #### U RC #### [address] [address] [employer]: Rafa Prieto MD Specimen Rejectionon 024 Reason for rejection Unable to perform testing: Specimen quantity not sufficient. Normal [facility] Comment on above: Performed By: #### O SMO, REJEC ####[facility] [address] [place] [address] Lab Director: Rafa Prieto MD Source of sample .BLOOD Normal [facility] Comment on above: Performed By: #### O SMO, REJEC ####[facility] [address] [place] [address] Lab Director: Rafa Prieto MD Test ordered BNP TROPI Normal [facility] Comment on above: Performed By: #### O SMO, REJEC ####[facility] [address] [place] [address] lab Director: Rafa Prieto MD Troponinon 01-03-2024 Troponin, High Sens 57 ng/L Critically high 0-22 [facility] Comment on above: Result Comment: High Sensitivity Troponin values cannot be compared with other Troponin methodologies. Performed By: #### U RC #### [facility] [address] [place] [address] [employer]: Rafa Prieto MD XR CHEST PORTABLEon 01-03-20 [...] Samir Infante MD 01/03/24 Final result Normal [facility] Arterial Bld Gas,POCon 01-02 Rao Test Positive Normal [facility] HCO3 (Bld) [Moles/Vol] 30.0 mmol/L High 21.0-28.0 [facility] Oxygen saturation in Blood 93.2 % Low 94.0-98.0 [facility] Patient Temp. 37.7 Normal [facility] pCO2, Arterial 53.1 mm Hg High 35.0-48.0 [facility] pCO2, Temp Adjust 54.7 mm Hg Normal [facility] pH, Arterial 7.361 Normal 7.350-7.450 [facility] pH, Temp Adjust 7.350 Normal [facility] pO2, Arterial 71.8 mm Hg Low 83.0-108.0 [facility] pO2, Temp Adjust 75.2 mm Hg Normal [facility] Positive Base Excess (calc) 3.3 mmol/L High 0.0-3.0 [facility] Site Drawn Left Radial Artery Normal [facility] Basic Metab w/rfx MGon 01-02 Anion gap [Moles/Vol] 9 mmol/L Normal 9-17 [facility] Comment on above: Performed By: #### H EPXA, PTT #### [facility] [address] [place] [address] [employer]: Rafa Prieto MD Calcium [Mass/Vol] 8.0 mg/dL Low 8.6-10.4 [facility] Comment on above: Performed By: #### H EPXA, PTT #### [facility] [place] [address] [employer]: Rafa Prieto MD Chloride [Moles/Vol] 100 mmol/L Normal 98-107 [facility] Comment on above: Performed By: #### H EPXA, PTT #### [facility] [address] [place] [address] [employer]: Rafa Prieto MD CO2 [Moles/Vol] 26 mmol/L Normal 20-31 [facility] Comment on above: Performed By: #### H EPXA, PTT #### [facility] [address] [place] [address] [employer]: Rafa Prieto MD Creatinine [Mass/Vol] 0.7 mg/dL Normal 0.7-1.2 [facility] Comment on above: Performed By: #### H EPXA, PTT #### [facility] [address] [place] [address] [employer]: Rafa Prieto MD GFR/1.73 sq M.predicted among non-blacks MDRD (S/P/Bld) [Vol rate/Area] mL/min/{1.73_m2} Normal >60 [facility] Comment on above: Result Comment: These [...] Performed By: #### H EPXA, PTT #### [facility] [address] [place] [address] [employer]: Rafa Prieto MD Glucose [Mass/Vol] 110 mg/dL High 70-99 [facility] Comment on above: Performed By: #### H EPXA, PTT #### [facility] [address] [place] [address] [employer]: Rafa Prieto MD Potassium [Moles/Vol] 3.9 mmol/L Normal 3.7-5.3 [facility] Comment on above: Performed By: #### H EPXA, PTT #### [facility] [address] [place] [address] [employer]: Rafa Prieto MD Sodium [Moles/Vol] 135 mmol/L Normal 135-144 [facility] Comment on above: Performed By: #### H EPXA, PTT #### [facility] [address] [place] [address] [employer]: Rafa Prieto MD Urea nitrogen [Mass/Vol] 15 mg/dL Normal 6-20 [facility] Comment on above: Performed By: #### H EPXA, PTT #### [facility] [address] [place] [address] [employer]: Rafa Prieto MD CBC with Diffon 01-02-2024 Abs. Basophil 0.00 k/uL Normal 0.0-0.2 [facility] Comment on above: Performed By: #### H EPXA, PTT #### [facility] [address] [place] [address] [employer]: Rafa Prieto MD Abs.Imm.Granulocyte 0.00 k/uL Normal 0.00-0.30 [facility] Comment on above: Performed By: #### H EPXA, PTT #### [facility] [address] [place] [address] [employer]: Rafa Prieto MD Abs.Neutrophil (Seg) 4.48 k/uL Normal 1.8-7.7 [facility] Comment on above: Performed By: #### H EPXA, PTT #### [facility] [address] [place] [address] [employer]: Rafa Prieto MD Basophils/100 WBC (Bld) 0 % Normal 0-2 [facility] Comment on above: Performed By: #### H EPXA, PTT #### [facility] [address] [place] [address] [employer]: Rafa Prieto MD Eosinophils (Bld) [#/Vol] 0.08 10*3/uL Normal 0.0-0.4 [facility] Comment on above: Performed By: #### H EPXA, PTT #### [facility] [address] [place] [address] [employer]: Rafa Prieto MD Eosinophils/100 WBC (Bld) 1 % Normal 1-4 [facility] Comment on above: Performed By: #### H EPXA, PTT #### [address] [address] [employer]: Rafa rPieto MD Immature granulocytes/100 WBC (Bld) 0 % Normal 0 [facility] Comment on above: Performed By: #### H EPXA, PTT #### [address] [address] [employer]: Rafa Prieto MD Lymphocytes (Bld) [#/Vol] 1.76 10*3/uL Normal 1.0-4.8 [facility] Comment on above: Performed By: #### H EPXA, PTT #### [address] [address] [employer]: Rafa Prieto MD Lymphocytes/100 WBC (Bld) 22 % Low 24-44 [facility] Comment on above: Performed By: #### H EPXA, PTT #### [address] [address] [employer]: Rafa Prieto MD Monocytes (Bld) [#/Vol] 1.68 10*3/uL High 0.1-0.8 [facility] Comment on above: Performed By: #### H EPXA, PTT #### [address] [address] [employer]: Rafa Prieto MD Monocytes/100 WBC (Bld) 21 % High 1-7 [facility] Comment on above: Performed By: #### H EPXA, PTT #### [facility] [address] [place] [address] [employer]: Rafa Prieto MD Morphology Rancho (Bld) [Interp] ANISOCYTOSIS PRESENT Normal [facility] Comment on above: Performed By: #### H EPXA, PTT #### [address] [address] [employer]: Rafa Prieto MD Neutrophil (Seg) 56 % Normal 36-66 [facility] Comment on above: Performed By: #### H EPXA, PTT #### [facility] [place] [address] [employer]: Rafa Prieto MD Erythrocyte distribution width (RBC) [Ratio] 15.9 % High 11.8-14.4 [facility] Comment on above: Performed By: #### H EPXA, PTT #### [facility] [address] [place] [address] [employer]: Rafa Prieto MD Hematocrit (Bld) [Volume fraction] 40.7 % Normal 40.7-50.3 [facility] Comment on above: Performed By: #### H EPXA, PTT #### [facility] [address] [place] [address] [employer]: Rafa Prieto MD Hemoglobin (Bld) [Mass/Vol] 11.6 g/dL Low 13.0-17.0 [facility] Comment on above: Performed By: #### H EPXA, PTT #### [facility] [address] [place] [address] [employer]: Rafa Prieto MD MCH (RBC) [Entitic mass] 24.0 pg Low 25.2-33.5 [facility] Comment on above: Performed By: #### H EPXA, PTT #### [facility] [place] [address] [employer]: Rafa Prieto MD MCHC (RBC) [Mass/Vol] 28.5 g/dL Normal 28.4-34.8 [facility] Comment on above: Performed By: #### H EPXA, PTT #### [facility] [address] [place] [address] [employer]: Rafa Prieto MD MCV (RBC) [Entitic vol] 84.1 fL Normal 82.6-102.9 [facility] Comment on above: Performed By: #### H EPXA, PTT #### [address] [address] [employer]: Rafa Prieto MD NRBC Automated 0.0 per 100 WBC Normal 0.0 [facility] Comment on above: Performed By: #### H EPXA, PTT #### [address] [address] [employer]: Rafa Prieto MD Platelet mean volume (Bld) [Entitic vol] 11.1 fL Normal 8.1-13.5 [facility] Comment on above: Performed By: #### H EPXA, PTT #### [address] [address] [employer]: Rafa Prieto MD Platelets (Bld) [#/Vol] 212 10*3/uL Normal 138-453 [facility] Comment on above: Performed By: #### H EPXA, PTT #### [address] [address] [employer]: Rafa Prieto MD RBC (Bld) [#/Vol] 4.84 10*6/uL Normal 4.21-5.77 [facility] Comment on above: Performed By: #### H EPXA, PTT #### [address] [address] [employer]: Rafa Prieto MD WBC (Bld) [#/Vol] 8.0 10*3/uL Normal 3.5-11.3 [facility] Comment on above: Performed By: #### H EPXA, PTT #### [address] [address] [employer]: Rafa Prieto MD Glucose (POC)on 01-02-2024 Glucose [Mass/Vol] 116 mg/dL High 74-100 [facility] Glucose,Whole Bloodon 2023 Glucose [Mass/Vol] 165 mg/dL High 75-110 [facility] Glucose [Mass/Vol] 209 mg/dL High 75-110 [facility] Glucose [Mass/Vol] 115 mg/dL High 75-110 [facility] Glucose [Mass/Vol] 78 mg/dL Normal 75-110 [facility] Heparin Anti-Xaon 01-02-2024 Heparin Anti-Xa 0.55 IU/L Normal [facility] Comment on above: Performed By: #### H EPXA, PTT #### [facility] [place] [address] [employer]: Rafa Prieto MD Heparin Anti-Xa 0.63 IU/L Normal [facility] Comment on above: Performed By: #### H EPXA ####[facility] [address] [place] [address] Lab Director: Rafa Prieto MD APTTon 01-01-2024 aPTT Coag (Bld) [Time] 123.5 s Critically high 23.0-36.5 [facility] Comment on above: Result Comment: IV Heparin Therapy Range: 66.0-92.0 sec Performed By: #### H EPXA, PTT #### [facility] [address] [place] [address] [id number] [employer]: Rafa Prieto MD aPTT Coag (Bld) [Time] 82.0 s High 23.0-36.5 [facility] Comment on above: Result Comment: IV Heparin Therapy Range: 66.0-92.0 sec Performed By: #### H EPXA, PTT #### [facility] [address] [place] [address] [employer]: Rafa Prieto MD aPTT Coag (Bld) [Time] 122.3 s Critically high 23.0-36.5 [facility] Comment on above: Result Comment: IV Heparin Therapy Range: 66.0-92.0 sec Performed By: #### T ROPI #### [facility] [place] [address] [employer]: Rafa Prieto MD Basic Metab w/rfx MGon 01-01 Creatinine [Mass/Vol] 0.8 mg/dL Normal 0.7-1.2 [facility] Comment on above: Result Comment: ICTE MANSOOR SPECIMEN Performed By: #### B MPX, CDP, TROPI, MG ####[facility] CenterSenstoreVqljihhabtcs[address] [place] [address] Lab Director: Rafa Prieto MD GFR/1.73 sq M.predicted among non-blacks MDRD (S/P/Bld) [Vol rate/Area] mL/min/{1.73_m2} Normal >60 [facility] Comment on above: Result Comment: These [...] By: #### B MPX, CDP, TROPI, MG ####[facility] [place] [address] Lab Director: Rafa Prieto MD Potassium [Moles/Vol] 3.5 mmol/L Low 3.7-5.3 [facility] Comment on above: Performed By: #### B MPX, CDP, TROPI, MG ####[facility] CenterSenstoreQbimitejtrxs[address] [place], [place] 6992008 Lab Director: Rafa Prieto MD Anion gap [Moles/Vol] 13 mmol/L Normal 9-17 [facility] [facility] Comment on above: Performed By: #### B MPX, CDP, TROPI, MG ####[facility] [address] [place] [address] Lab Director: Rafa Prieto MD Calcium [Mass/Vol] 8.3 mg/dL Low 8.6-10.4 [facility] Comment on above: Performed By: #### B MPX, CDP, TROPI, MG ####[facility] [address] [place], [place] [phone] Director: Rafa Prieto MD Chloride [Moles/Vol] 99 mmol/L Normal 98-107 [facility] Comment on above: Performed By: #### B MPX, CDP, TROPI, MG ####[facility] [address] [place], [place] [phone] Director: Rafa Prieto MD CO2 [Moles/Vol] 25 mmol/L Normal 20-31 [facility] Comment on above: Performed By: #### B MPX, CDP, TROPI, MG ####[facility] [address] [place] [address] Lab Director: Rafa Prieto MD Glucose [Mass/Vol] 89 mg/dL Normal 70-99 [facility] Comment on above: Performed By: #### B MPX, CDP, TROPI, MG ####[facility] [address] [place] [address] Lab Director: Rafa Prieto MD Sodium [Moles/Vol] 137 mmol/L Normal 135-144 [facility] Comment on above: Performed By: #### B MPX, CDP, TROPI, MG ####[facility] [address] [place], [place] [phone] Director: Rafa Prieto MD Urea nitrogen [Mass/Vol] 20 mg/dL Normal 6-20 [facility] Comment on above: Performed By: #### B MPX, CDP, TROPI, MG ####[facility] [address] [place], [place] [id number] Lab Director: Rafa Prieto MD Basic Metabolic Profon 01-01 Creatinine [Mass/Vol] 0.7 mg/dL Normal 0.7-1.2 [facility] Comment on above: Result Comment: ICTE MANSOOR SPECIMEN Performed By: #### T JOSEY #### [facility] [employer] [address] [place] [address] [employer] Operator: Rafa Prieto MD GFR/1.73 sq M.predicted among non-blacks MDRD (S/P/Bld) [Vol rate/Area] mL/min/{1.73_m2} Normal >60 [facility] Comment on above: Result Comment: These [...] renal tubular secretion. Performed By: #### T JOSEY #### [address] [address] [employer]: Rafa Prieto MD Anion gap [Moles/Vol] 12 mmol/L Normal 9-17 [facility] Comment on above: Performed By: #### T JOSEY #### [facility] [employer] [address] [place] [address] [employer]: Rafa Prieto MD Calcium [Mass/Vol] 8.3 mg/dL Low 8.6-10.4 [facility] Comment on above: Performed By: #### T JOSEY #### [facility] [employer] [address] [place] [address] [employer]: Rafa Prieto MD Chloride [Moles/Vol] 98 mmol/L Normal 98-107 [facility] Comment on above: Performed By: #### T JOSEY #### [facility] [employer] [place] [address] [employer]: Rafa Prieto MD CO2 [Moles/Vol] 25 mmol/L Normal 20-31 [facility] Comment on above: Performed By: #### T ROPI #### [address] [address] [employer]: Rafa Prieto MD Glucose [Mass/Vol] 125 mg/dL High 70-99 [facility] Comment on above: Performed By: #### T ROPI #### [address] [address] [employer]: Rafa Prieto MD Potassium [Moles/Vol] 3.6 mmol/L Low 3.7-5.3 [facility] Comment on above: Performed By: #### T ROPI #### [address] [address] [employer]: Rafa Prieto MD Sodium [Moles/Vol] 135 mmol/L Normal 135-144 [facility] Comment on above: Performed By: #### T ROPI #### [address] [address] [employer]: Rafa Prieto MD Urea nitrogen [Mass/Vol] 22 mg/dL High 6-20 [facility] Comment on above: Performed By: #### T ROPI #### [facility] [employer] [address] [place] [address] [employer] Operator: Rafa Prieto MD Brain Natri. Peptideon 01-01 Natriuretic peptide B (Bld) [Mass/Vol] 2437 pg/mL High <300 [facility] Comment on above: Result Comment: An age-independent cutoff point of 300 pg/ml has a 98% negative predictive value excluding acute heart failure. Performed By: #### T ROPI #### [facility] [address] [place] [address] [employer]: Rafa Prieto MD CBC with Diffon 01-01-2024 Abs. Basophil 0.00 k/uL Normal 0.00-0.20 [facility] Comment on above: Performed By: #### B MPX, CDP, TROPI, MG ####[facility] [address] [place], [place] [address])[phone] Director: Rafa Prieto MD Abs.Imm.Granulocyte 0.00 k/uL Normal 0.00-0.30 [facility] Comment on above: Performed By: #### B MPX, CDP, TROPI, MG ####[facility] [address] [place], [place] [address])[phone] Director: Rafa Prieto MD Abs.Neutrophil (Seg) 4.00 k/uL Normal 1.50-8.10 [facility] Comment on above: Performed By: #### B MPX, CDP, TROPI, MG ####[facility] [address] [place], [place] [address])[phone] Director: Rafa Prieto MD Basophils/100 WBC (Bld) 0 % Normal 0-2 [facility] Comment on above: Performed By: #### B MPX, CDP, TROPI, MG ####[facility] [address] [place], [place] [address])[phone] Director: Rafa Prieto MD Eosinophils (Bld) [#/Vol] 0.00 10*3/uL Normal 0.00-0.44 [facility] Comment on above: Performed By: #### B MPX, CDP, TROPI, MG ####[facility] [address] [place], [place] [address])[phone] Director: Rafa Prieto MD Eosinophils/100 WBC (Bld) 0 % Low 1-4 [facility] Comment on above: Performed By: #### B MPX, CDP, TROPI, MG ####[facility] [address] [place], [place] [phone])[phone] Director: Rafa Prieto MD Immature granulocytes/100 WBC (Bld) 0 % Normal 0 [facility] Comment on above: Performed By: #### B MPX, CDP, TROPI, MG ####[facility] [address] [place], [place] [phone] Director: Rafa Prieto MD Lymphocytes (Bld) [#/Vol] 1.70 10*3/uL Normal 1.10-3.70 [facility] Comment on above: Performed By: #### B MPX, CDP, TROPI, MG ####[facility] Skmpghxxsckw1366 [place], [place] [phone])[phone] Director: Rafa Prieto MD Lymphocytes/100 WBC (Bld) 23 % Low 24-43 [facility] Comment on above: Performed By: #### B MPX, CDP, TROPI, MG ####[facility] Fcon[address]izhglll54[address] [place], [place] [phone])[phone] Director: Rafa Prieto MD Monocytes (Bld) [#/Vol] 1.70 10*3/uL High 0.10-1.20 [facility] Comment on above: Performed By: #### B MPX, CDP, TROPI, MG ####[facility] Igkn[address]pspqqct5086 [place], [place] [phone])[phone] Director: Rafa Prieto MD Monocytes/100 WBC (Bld) 23 % High 3-12 [facility] Comment on above: Performed By: #### B MPX, CDP, TROPI, MG ####[facility] [address] [place], [place] [phone] Director: Rafa Prieto MD Morphology Rancho (Bld) [Interp] ANISOCYTOSIS PRESENT Normal [facility] Comment on above: Result Comment: MICR OCYTOSIS PRESENT Performed By: #### B MPX, CDP, TROPI, MG ####[facility] [address]fxdpz13[address] [place], [place] [phone] Director: Rafa Prieto MD Neutrophil (Seg) 54 % Normal 36-65 [facility] Comment on above: Performed By: #### B MPX, CDP, TROPI, MG ####[facility] Wfryrcszqyjy[address] [place] [address] Lab Director: Rafa Prieto MD Erythrocyte distribution width (RBC) [Ratio] 15.8 % High 11.8-14.4 [facility] Comment on above: Performed By: #### B MPX, CDP, TROPI, MG ####[facility] Prrjgxenicab5824 [place], [place] [phone] Director: Rafa Prieto MD Hematocrit (Bld) [Volume fraction] 40.9 % Normal 40.7-50.3 [facility] Comment on above: Performed By: #### B MPX, CDP, TROPI, MG ####[facility] Odc[address]zxwfmor4492 [place], [place] [phone] Director: Rafa Prieto MD Hemoglobin (Bld) [Mass/Vol] 12.3 g/dL Low 13.0-17.0 [facility] Comment on above: Performed By: #### B MPX, CDP, TROPI, MG ####[facility] Ets[address]qyjp[address] [place], [place] [phone] Director: Rafa Prieto MD MCH (RBC) [Entitic mass] 24.2 pg Low 25.2-33.5 [facility] Comment on above: Performed By: #### B MPX, CDP, TROPI, MG ####[facility] [address] [place], [place] [phone] Director: Rafa Prieto MD MCHC (RBC) [Mass/Vol] 30.1 g/dL Normal 28.4-34.8 [facility] Comment on above: Performed By: #### B MPX, CDP, TROPI, MG ####[facility] [address]ob[address]44[address] [place] [address] Lab Director: Rafa Prieto MD MCV (RBC) [Entitic vol] 80.5 fL Low 82.6-102.9 [facility] Comment on above: Performed By: #### B MPX, CDP, TROPI, MG ####[facility] [address] [place], [place] [phone] Director: Rafa Prieto MD NRBC Automated 0.0 per 100 WBC Normal 0.0 [facility] Comment on above: Performed By: #### B MPX, CDP, TROPI, MG ####[facility] Y[address]ms[address] [place], [place] [phone] Director: Rafa Prieto MD Platelet mean volume (Bld) [Entitic vol] 11.0 fL Normal 8.1-13.5 [facility] Comment on above: Performed By: #### B MPX, CDP, TROPI, MG ####[facility] [address]thpu[address] [place], [place] [address])[phone] Director: Rafa Prieto MD Platelets (Bld) [#/Vol] 246 10*3/uL Normal 138-453 [facility] Comment on above: Performed By: #### B MPX, CDP, TROPI, MG ####[facility] M[address]xctljgyla6874 [place], [place] [phone] Director: Rafa Prieto MD RBC (Bld) [#/Vol] 5.08 10*6/uL Normal 4.21-5.77 [facility] Comment on above: Performed By: #### B MPX, CDP, TROPI, MG ####[facility] [address]daylvs4093 [place], [place] [phone] Director: Rafa Prieto MD WBC (Bld) [#/Vol] 7.4 10*3/uL Normal 3.5-11.3 [facility] Comment on above: Performed By: #### B MPX, CDP, TROPI, MG ####[address] [address] Lab Director: Rafa Prieto MD Abs. Basophil 0.00 k/uL Normal 0.0-0.2 [facility] Comment on above: Performed By: #### T ROPI #### [place] [address] [employer]: Rafa Prieto MD Abs.Imm.Granulocyte 0.00 k/uL Normal 0.00-0.30 [facility] Comment on above: Performed By: #### T ROPI #### [place] [address] [employer]: Rafa Prieto MD Abs.Neutrophil (Seg) 5.76 k/uL Normal 1.8-7.7 [facility] Comment on above: Performed By: #### T ROPI #### [place] [address] [employer]: Rafa Prieto MD Basophils/100 WBC (Bld) 0 % Normal 0-2 [facility] Comment on above: Performed By: #### T ROPI #### [place] [address] [employer]: Rafa Prieto MD Eosinophils (Bld) [#/Vol] 0.00 10*3/uL Normal 0.0-0.4 [facility] Comment on above: Performed By: #### T ROPI #### [address] [address] [employer]: Rafa Prieto MD Eosinophils/100 WBC (Bld) 0 % Low 1-4 [facility] Comment on above: Performed By: #### T ROPI #### [address] [address] [employer]: Rafa Prieto MD Immature granulocytes/100 WBC (Bld) 0 % Normal 0 [facility] Comment on above: Performed By: #### T ROPI #### [address] [address] [employer]: Rafa Prieto MD Lymphocytes (Bld) [#/Vol] 1.28 10*3/uL Normal 1.0-4.8 [facility] Comment on above: Performed By: #### T ROPI #### [address] [address] [employer]: Rafa Prieto MD Lymphocytes/100 WBC (Bld) 16 % Low 24-44 [facility] Comment on above: Performed By: #### T ROPI #### [address] [address] [employer]: Rafa Prieto MD Monocytes (Bld) [#/Vol] 0.96 10*3/uL High 0.1-0.8 [facility] Comment on above: Performed By: #### T ROPI #### [address] [address] [employer]: Rafa Prieto MD Monocytes/100 WBC (Bld) 12 % High 1-7 [facility] Comment on above: Performed By: #### T ROPI #### [address] [address] [employer]: Rafa Prieto MD Morphology Rancho (Bld) [Interp] ANISOCYTOSIS PRESENT Normal [facility] Comment on above: Result Comment: MICR OCYTOSIS PRESENT Performed By: #### T ROPI #### [address] [address] [employer]: Rafa Prieto MD Neutrophil (Seg) 72 % High 36-66 [facility] Comment on above: Performed By: #### T ROPI #### [address] [address] [employer]: Rafa Prieto MD Nucleated RBC'S 1 per 100 WBC High 0 [facility] Comment on above: Performed By: #### T ROPI #### [address] [address] [employer]: Rafa Prieto MD Erythrocyte distribution width (RBC) [Ratio] 15.9 % High 11.8-14.4 [facility] Comment on above: Performed By: #### T ROPI #### [address] [address] [employer]: Rafa Prieto MD Hematocrit (Bld) [Volume fraction] 41.5 % Normal 40.7-50.3 [facility] Comment on above: Performed By: #### T ROPI #### [address] [address] [employer]: Rafa Prieto MD Hemoglobin (Bld) [Mass/Vol] 12.7 g/dL Low 13.0-17.0 [facility] Comment on above: Performed By: #### T ROPI #### [address] [address] [employer]: Rafa Prieto MD MCH (RBC) [Entitic mass] 24.3 pg Low 25.2-33.5 [facility] Comment on above: Performed By: #### T ROPI #### [address] [address] [employer]: Rafa Prieto MD MCHC (RBC) [Mass/Vol] 30.6 g/dL Normal 28.4-34.8 [facility] Comment on above: Performed By: #### T ROPI #### [address] [address] [employer]: Rafa Prieto MD MCV (RBC) [Entitic vol] 79.5 fL Low 82.6-102.9 [facility] Comment on above: Performed By: #### T ROPI #### [address] [address] [employer]: Rafa Prieto MD NRBC Automated 0.3 per 100 WBC High 0.0 [facility] Comment on above: Performed By: #### T ROPI #### [address] [address] [employer]: Rafa Prieto MD Platelet mean volume (Bld) [Entitic vol] 10.9 fL Normal 8.1-13.5 [facility] Comment on above: Performed By: #### T ROPI #### [address] [address] [employer]: Rafa Prieto MD Platelets (Bld) [#/Vol] 265 10*3/uL Normal 138-453 [facility] Comment on above: Performed By: #### T ROPI #### [address] [address] [employer]: Rafa Prieto MD RBC (Bld) [#/Vol] 5.22 10*6/uL Normal 4.21-5.77 [facility] Comment on above: Performed By: #### T ROPI #### [address] [address] [employer]: Rafa Prieto MD WBC (Bld) [#/Vol] 8.0 10*3/uL Normal 3.5-11.3 [facility] Comment on above: Performed By: #### T ROPI #### [address] [address] [employer]: Rafa Prieto MD Glucose,Whole Bloodon 2023 Glucose [Mass/Vol] 72 mg/dL Low 75-110 [facility] Glucose [Mass/Vol] 60 mg/dL Low 75-110 [facility] Glucose [Mass/Vol] 44 mg/dL Low 75-110 [facility] Comment on above: Result Comment: Alesia icaonofre Noted Glucose [Mass/Vol] 91 mg/dL Normal 75-110 [facility] Glucose [Mass/Vol] 66 mg/dL Low 75-110 [facility] Glucose [Mass/Vol] 42 mg/dL Low 75-110 [facility] Comment on above: Result Comment: Alesia icaonofre Noted Glucose [Mass/Vol] 124 mg/dL High 75-110 [facility] Heparin Anti-Xaon 01-01-2024 Heparin Anti-Xa 0.97 IU/L Normal [facility] Comment on above: Performed By: #### H EPXA #### [facility] [address] [place] [address] [employer]: Rafa Prieto MD Heparin Anti-Xa 0.40 IU/L Normal [facility] Comment on above: Performed By: #### H EPXA, PTT #### [facility] [address] [place] [address] [employer]: Rafa Prieto MD Heparin Anti-Xa 0.32 IU/L Normal [facility] Comment on above: Performed By: #### H EPXA, PTT #### [facility] [address] [place] [address] [employer]: Rafa Prieto MD Heparin Anti-Xa 0.29 IU/L Normal [facility] Comment on above: Performed By: #### T ROPI #### [facility] [address] [place] [address] [employer]: Rafa Prieto MD MRSA, DNA, Nasalon MRSA, DNA, Nasal Negative Normal NEG [facility] Comment on above: Result Comment: NEGA TIVE: MRSA DNA not detected by nucleic acid amplification. Results should be used as an adjunct to nosocomial control efforts to identify patients needing enhanced precautions. The test is not intended to identify patients with staphylococcal infections. Results should not be used to guide or monitor treatment for MRSA infections. Performed By: #### M RSANO ####[facility] [address] [place], [place] [phone] Director: Rafa Prieto MD Specimen Description .NASAL SWAB Normal [facility] Comment on above: Performed By: #### M RSANO ####[facility] [address] [place] [address] [phone])[phone] Director: Rafa Prieto MD Magnesiumon 01-01-2024 Magnesium [Mass/Vol] 1.7 mg/dL Normal 1.6-2.6 [facility] Comment on above: Performed By: #### B MPX, CDP, TROPI, MG ####[facility] [address] [place], [place] [phone] Director: Rafa Prieto MD Troponinon 01-01-2024 Troponin, High Sens 103 ng/L Critically high 0-22 [facility] Comment on above: Result Comment: High Sensitivity Troponin values cannot be compared with other Troponin methodologies. Previous Alert Value Reported Performed By: #### B MPX, CDP, TROPI, MG ####[facility] [address] [place], [place] [phone] Director: Rafa Prieto MD Troponin, High Sens 107 ng/L Critically high 0-22 [facility] Comment on above: Result Comment: High Sensitivity Troponin values cannot be compared with other Troponin methodologies. Previous Alert Value Reported Performed By: #### T ROPI ####[facility] [address] [place], [place] [phone] Director: Rafa Prieto MD Troponin, High Sens 107 ng/L Critically high 0-22 [facility] Comment on above: Result Comment: High Sensitivity Troponin values cannot be compared with other Troponin methodologies. Previous Alert Value Reported Performed By: #### T ROSEANNI #### [facility] [address] [place] [address] [employer]: Rafa Prieto MD Troponin, High Sens 104 ng/L Critically high 0-22 [facility] Comment on above: Result Comment: High Sensitivity Troponin values cannot be compared with other Troponin methodologies. Performed By: #### T ROSEANNI #### [facility] [address] [place] [address] [employer]: Rafa Prieto MD Type + Screenon 01-01-2024 Type + Screen Sample Expiration 01/04/2024,2359 Arm Band Number [id number] ABO/Rh(D) A POSITIVE Antibody Screen NEGATIVE Normal [facility] Comment on above: Performed By: #### T YS ####[facility]storeSllrny[address] [place] [address] Lab Director: Rafa Prieto MD Urinalysis, Routineon 2023 Bilirubin, SemiQt,Ur Negative Normal NEG [facility] Comment on above: Performed By: #### H EPXA, PTT #### [facility] [address] [place] [address] [employer]: Rafa Prieto MD Blood, Urine LARGE Abnormal NEG [facility] Comment on above: Performed By: #### H EPXA, PTT #### [facility] [address] [place] [address] [employer]: Rafa Prieto MD Clarity (U) Clear Normal CLEAR [facility] Comment on above: Performed By: #### H EPXA, PTT #### [facility] [address] [place] [address] [employer]: Rafa Prieto MD Color (U) Dark Yellow Abnormal YEL [facility] Comment on above: Performed By: #### H EPXA, PTT #### [facility] [address] [place] [address] [employer]: Rafa Prieto MD Glucose Ql (U) Negative Normal NEG [facility] Comment on above: Performed By: #### H EPXA, PTT #### [facility] [employer] [address] [place] [address] [employer]: Rafa Prieto MD Ketones Ql (U) Negative Normal NEG [facility] Comment on above: Performed By: #### H EPXA, PTT #### [facility] [employer] [address] [place] [address] [employer]: Rafa Prieto MD Leukocyte esterase Test strip Ql (U) MODERATE Abnormal NEG [facility] Comment on above: Performed By: #### H EPXA, PTT #### [facility] [address] [place] [address] [employer]: Rafa Prieto MD Nitrite,Ur Negative Normal NEG [facility] Comment on above: Performed By: #### H EPXA, PTT #### [facility] [address] [place] [address] [employer]: Rafa Prieto MD PH,Ur 5.5 Normal 5.0-8.0 [facility] Comment on above: Performed By: #### H EPXA, PTT #### [facility] [address] [place] [address] [employer]: Rafa Prieto MD Protein Ql (U) TRACE Abnormal NEG [facility] Comment on above: Performed By: #### H EPXA, PTT #### [facility] [address] [place] [address] [employer]: Rafa Prieto MD Spec. Stokes,Ur 1.024 Normal 1.005-1.030 [facility] Comment on above: Performed By: #### H EPXA, PTT #### [facility] [address] [place] [address] [employer]: Rafa Prieto MD Urobilinogen,Ur ELEVATED Normal 0.0-1.0 [facility] Comment on above: Performed By: #### H EPXA, PTT #### [facility] [address] [place] [address] [employer]: Rafa Prieto MD Urinalysis,Microon 4 Epithelial cells LM Ql (Urine sed) 5 TO 10 Normal 0-5 [facility] Comment on above: Performed By: #### H EPXA, PTT #### [facility] [address] [place] [address] [employer]: Rafa Prieto MD Urine RBC's TOO NUMEROUS TO COUNT Normal 0-2 [facility] Comment on above: Performed By: #### H EPXA, PTT #### [facility] [address] [place] [address] [employer]: Rafa Prieto MD Urine WBC's 10 TO 20 Normal 0-5 [facility] Comment on above: Performed By: #### H EPXA, PTT #### [facility] [address] [place] [address] [employer]: Rafa Prieto MD DENNY Antinuclear Antibodieson 08-09-2023 Antinuclear Abs, IFA Negative Normal . [facility] Comment on above: Result Comment: Nega tive <1:80 Borderline 1:80 Positive >1:80 ICAP nomenclature: AC-0 For more information about Hep-2 cell patterns use ANApatterns.org, the official website for the International Consensus on Antinuclear Antibody (DENNY) Patterns (ICAP). Performed at: - [facility] [address] [id number] [employer] Operator: Lester Nunez PhD, Phone: [phone] Performed By: #### A NA, [id number] #### [facility] , #### T4F, CRP, CK, CMP, ESR, CBC, TSH3 #### [address] C-Reactive Proteinon 023 C-Reactive Protein 0.5 mg/dL Normal 0.0-0.5 [facility] Comment on above: Performed By: #### A NA, [id number] #### [facility] , #### T4F, CRP, CK, CMP, ESR, CBC, TSH3 #### [address] Complete Blood Count Auto Di ffon 08-09-2023 Basophils (Bld) [#/Vol] 0.0 10*3/uL Normal 0.0-0.2 [facility] Comment on above: Performed By: #### A NA, [id number] #### [facility] , #### T4F, CRP, CK, CMP, ESR, CBC, TSH3 #### [place] [address] [place] Basophils/100 WBC (Bld) 0.6 % Normal . [facility] Comment on above: Performed By: #### A NA, [id number] #### [facility] , #### T4F, CRP, CK, CMP, ESR, CBC, TSH3 #### [address] Eosinophils (Bld) [#/Vol] 0.1 10*3/uL Normal 0.0-0.45 [facility] Comment on above: Performed By: #### A NA, [id number] #### [facility] , #### T4F, CRP, CK, CMP, ESR, CBC, TSH3 #### [place] [address] [place] Eosinophils/100 WBC (Bld) 1.4 % Normal . [facility] Comment on above: Performed By: #### A NA, [id number] #### [facility] , #### T4F, CRP, CK, CMP, ESR, CBC, TSH3 #### [address] Erythrocyte distribution width (RBC) [Ratio] 13.1 % Normal 12.0-14.8 [facility] Comment on above: Performed By: #### A NA, [id number] #### [facility] , #### T4F, CRP, CK, CMP, ESR, CBC, TSH3 #### [address] Hematocrit (Bld) [Volume fraction] 43.8 % Normal 38.8-50.0 [facility] Comment on above: Performed By: #### A NA, [id number] #### [facility] , #### T4F, CRP, CK, CMP, ESR, CBC, TSH3 #### [address] Hemoglobin (Bld) [Mass/Vol] 14.4 g/dL Normal 13.0-17.0 [facility] Comment on above: Performed By: #### A NA, [id number] #### [facility] , #### T4F, CRP, CK, CMP, ESR, CBC, TSH3 #### [address] Lymphocytes (Bld) [#/Vol] 1.7 10*3/uL Normal 1.00-4.8 [facility] Comment on above: Performed By: #### A NA, [id number] #### [facility] , #### T4F, CRP, CK, CMP, ESR, CBC, TSH3 #### [address] Lymphocytes/100 WBC (Bld) 24.1 % Normal . [facility] Comment on above: Performed By: #### A NA, [id number] #### [facility] , #### T4F, CRP, CK, CMP, ESR, CBC, TSH3 #### [address] MCH (RBC) [Entitic mass] 27.6 pg Normal 27.5-35.2 [facility] Comment on above: Performed By: #### A NA, [id number] #### [facility] , #### T4F, CRP, CK, CMP, ESR, CBC, TSH3 #### [address] MCV (RBC) [Entitic vol] 84.1 fL Normal 83.5-101 [facility] Comment on above: Performed By: #### A NA, [id number] #### [facility] , #### T4F, CRP, CK, CMP, ESR, CBC, TSH3 #### [address] Mean Corpuscular HGB Conc 32.8 g/dL Normal 32.5-35.6 [facility] Comment on above: Performed By: #### A NA, [id number] #### [facility] , #### T4F, CRP, CK, CMP, ESR, CBC, TSH3 #### [address] Monocytes (Bld) [#/Vol] 0.4 10*3/uL Normal 0.0-0.8 [facility] Comment on above: Performed By: #### A NA, [id number] #### [facility] , #### T4F, CRP, CK, CMP, ESR, CBC, TSH3 #### [address] Monocytes/100 WBC (Bld) 5.9 % Normal . [facility] Comment on above: Performed By: #### A NA, HLAB27 #### [facility] , #### T4F, CRP, CK, CMP, ESR, CBC, TSH3 #### [address] [place] [address] [place] Neutrophils (Bld) [#/Vol] 4.9 10*3/uL Normal 1.8-7.7 [facility] Comment on above: Performed By: #### A NA, [id number] #### [facility] , #### T4F, CRP, CK, CMP, ESR, CBC, TSH3 #### [place] [address] [place] Neutrophils/100 WBC (Bld) 68.0 % Normal . [facility] Comment on above: Performed By: #### A NA, HLAB27 #### [facility] , #### T4F, CRP, CK, CMP, ESR, CBC, TSH3 #### [address] NRBC% 0.2 /100{WBC} Normal 0-0.5 [facility] Comment on above: Performed By: #### A NA, [id number] #### [facility] , #### T4F, CRP, CK, CMP, ESR, CBC, TSH3 #### [address] Platelet mean volume (Bld) [Entitic vol] 10.9 fL High 6.6-10.1 [facility] Comment on above: Performed By: #### A NA, [id number] #### [facility] , #### T4F, CRP, CK, CMP, ESR, CBC, TSH3 #### [place] [address] [place] Platelets (Bld) [#/Vol] 216 10*3/uL Normal 150-450 [facility] Comment on above: Performed By: #### A NA, [id number] #### [facility] , #### T4F, CRP, CK, CMP, ESR, CBC, TSH3 #### [place] [address] [place] RBC (Bld) [#/Vol] 5.20 10*6/uL Normal 3.90-5.60 [facility] Comment on above: Performed By: #### A NA, [id number] #### [facility] , #### T4F, CRP, CK, CMP, ESR, CBC, TSH3 #### [address] WBC (Bld) [#/Vol] 7.1 10*3/uL Normal 4.1-10.5 [facility] Comment on above: Performed By: #### A NA, [id number] #### [facility] , #### T4F, CRP, CK, CMP, ESR, CBC, TSH3 #### [address] Comprehensive Metabolic Pane chery 08-09-2023 Albumin [Mass/Vol] 4.6 g/dL Normal 3.5-5.7 [facility] Comment on above: Performed By: #### A NA, HLAB27 #### [facility] , #### T4F, CRP, CK, CMP, ESR, CBC, TSH3 #### [address] Albumin/Globulin [Mass ratio] 1.3 {ratio} Normal [facility] Comment on above: Performed By: #### A NA, HLAB27 #### [facility] , #### T4F, CRP, CK, CMP, ESR, CBC, TSH3 #### [address] ALP [Catalytic activity/Vol] 44 U/L Normal 34-104 [facility] Comment on above: Performed By: #### A NA, [id number] #### [facility] , #### T4F, CRP, CK, CMP, ESR, CBC, TSH3 #### [address] ALT [Catalytic activity/Vol] 50 U/L Normal 7-52 [facility] Comment on above: Performed By: #### A NA, HLAB27 #### [facility] , #### T4F, CRP, CK, CMP, ESR, CBC, TSH3 #### [facility] [address] Anion gap [Moles/Vol] 14.9 mmol/L Normal 6.0-15.0 [facility] Comment on above: Performed By: #### A NA, [id number] #### [facility] , #### T4F, CRP, CK, CMP, ESR, CBC, TSH3 #### [facility] [address] [place] [address] AST [Catalytic activity/Vol] 33 U/L Normal 13-39 [facility] Comment on above: Performed By: #### A NA, [id number] #### [facility] , #### T4F, CRP, CK, CMP, ESR, CBC, TSH3 #### [facility] [address] [place] [address] Bilirubin [Mass/Vol] 0.4 mg/dL Normal 0.3-1.0 [facility] Comment on above: Performed By: #### A NA, HLAB27 #### [facility] , #### T4F, CRP, CK, CMP, ESR, CBC, TSH3 #### [facility] [address] [place] [address] Calcium [Mass/Vol] 10.2 mg/dL Normal 8.6-10.3 [facility] Comment on above: Performed By: #### A NA, HLAB27 #### [facility] , #### T4F, CRP, CK, CMP, ESR, CBC, TSH3 #### [facility] [address] [place] [address] Chloride [Moles/Vol] 97 mmol/L Low 98-107 [facility] Comment on above: Performed By: #### A NA, [id number] #### [facility] , #### T4F, CRP, CK, CMP, ESR, CBC, TSH3 #### [address] CO2 [Moles/Vol] 29.7 mmol/L Normal 21.0-31.0 [facility] Comment on above: Performed By: #### A NA, [id number] #### [facility] , #### T4F, CRP, CK, CMP, ESR, CBC, TSH3 #### [address] Creatinine [Mass/Vol] 0.80 mg/dL Normal 0.70-1.30 [facility] Comment on above: Performed By: #### A NA, HLAB27 #### [facility] , #### T4F, CRP, CK, CMP, ESR, CBC, TSH3 #### [address] GFR/1.73 sq M.predicted MDRD (S/P/Bld) [Vol rate/Area] mL/min/{1.73_m2} [facility] Comment on above: Performed By: #### A NA, [id number] #### [facility] , #### T4F, CRP, CK, CMP, ESR, CBC, TSH3 #### [address] Globulin (S) [Mass/Vol] 3.5 g/dL [facility] Comment on above: Performed By: #### A NA, HLAB27 #### [facility] , #### T4F, CRP, CK, CMP, ESR, CBC, TSH3 #### [address] Glucose [Mass/Vol] 157 mg/dL High 70-100 [facility] Comment on above: Result Comment: [facility] Glucose Reference Range is dependent on time and content of last meal. Glucose of more than 200 mg/dL in a nonstressed, ambulatory subject supports the diagnosis of Diabetes Mellitus. ADA recommended reference range Performed By: #### A NA, [id number] #### [facility] , #### T4F, CRP, CK, CMP, ESR, CBC, TSH3 #### [address] Potassium [Moles/Vol] 4.6 mmol/L Normal 3.5-5.1 [facility] Comment on above: Performed By: #### A NA, HLAB27 #### [facility] , #### T4F, CRP, CK, CMP, ESR, CBC, TSH3 #### [address] Protein [Mass/Vol] 8.1 g/dL Normal 6.4-8.9 [facility] Comment on above: Performed By: #### A NA, HLAB27 #### [facility] , #### T4F, CRP, CK, CMP, ESR, CBC, TSH3 #### [address] Sodium [Moles/Vol] 137 mmol/L Normal 136-145 [facility] Comment on above: Performed By: #### A NA, HLAB27 #### [facility] , #### T4F, CRP, CK, CMP, ESR, CBC, TSH3 #### [address] Urea nitrogen [Mass/Vol] 10 mg/dL Normal 7-25 [facility] Comment on above: Performed By: #### A NA, HLAB27 #### [facility] , #### T4F, CRP, CK, CMP, ESR, CBC, TSH3 #### [address] Creatine Kinaseon 08-09-2023 CK [Catalytic activity/Vol] 95 U/L Normal 30-223 [facility] Comment on above: Result Comment: PERF ORMED BY: [place] [address] PATHOLOGIST STAYING MACHINE OPERATOR JOSEPH SAUCEDA M.D. Performed By: #### A NA, [id number] #### [facility] , #### T4F, CRP, CK, CMP, ESR, CBC, TSH3 #### [address] Erythrocyte Sedimentation Ra baldo 08-09-2023 ESR (Bld) [Velocity] 30 mm/h High 0-19 [facility] Comment on above: Result Comment: PERF ORMED BY: [place] [address] PATHOLOGIST STAYING MACHINE OPERATOR JOSEPH SAUCEDA M.D. Performed By: #### A NA, [id number] #### [facility] , #### T4F, CRP, CK, CMP, ESR, CBC, TSH3 #### [address] Free T4 (Free Thyroxine)on 1 Free T4 [Mass/Vol] 0.87 ng/dL Normal 0.61-1.12 [facility] Comment on above: Performed By: #### A NA, HLAB27 #### [facility] , #### T4F, CRP, CK, CMP, ESR, CBC, TSH3 #### [address] HLA B27 Disease Associationo n 08-09-2023 HLA B27 Disease Association Positive Normal . [facility] Comment on above: Result Comment: HLA- B*27 Positive This patient is positive for HLA-B*27. This procedure rules out the B*27:06 and 27:09 alleles, which the literature suggests are not associated with spondyloarthropathies. B27 allele interpretation for all loci based on IMGT/HLA database version 3.44 This test was developed and its performance characteristics determined by [facility]. It has not been cleared or approved by the Food and Drug Administration. [facility] CLIA ID Number [id number] THis test was performed using Polymerase Chain Reaction (PCR) and Sequence Specific Oligonucleotide Probes (SSOP) technique. Sequence Based Typing (SBT) may be used as a supplemental method when necessary. If you have questions, please call [facility] customer service at or email at [email or web address]. Performed at: [address] [place] [id number] [employer] Operator: Minerva Pearce PhD, Phone: [phone] PERFORMED BY: [place] [address] PATHOLOGIST STAYING MACHINE OPERATOR JOSEPH SAUCEDA M.D. Performed By: #### A NA, [id number] #### [facility] , #### T4F, CRP, CK, CMP, ESR, CBC, TSH3 #### [address] Thyroid Stimulating Hormoneo n 08-09-2023 TSH Qn 2.42 m[IU]/L Normal 0.45-5.33 [facility] Comment on above: Result Comment: PERF ORMED BY: [place] [address] PATHOLOGIST STAYING MACHINE OPERATOR JOSEPH SAUCEDA M.D. Performed By: #### A NA, [id number] #### [facility] , #### T4F, CRP, CK, CMP, ESR, CBC, TSH3 #### [facility] [address] [place], [place] [id number] [facility] XR thoracic spine 3V*on XR thoracic spine 3V* [facility] [place] [address] [place] [address] XRay Report Signed Patient: Vitaly Dobson MR#: [id number] : 1970 Acct:[id number] Age/Sex: 52 / M ADM Date: 08/09/23 Loc: ICXD Room: Type: [facility] CLI Attending Dr: Edi Henriquez MD Copies to: Edi Henriquez MD Ordering Provider: Edi Henriquez MD Date of Service: 08/09/23 XR/XR lumbar spine 2-3V*: LOW BACK PAIN ([id number]) XR/XR thoracic spine 3V*: DISH VS ANKYLOSING SPONDYLITIS ([id number]) XR/XR si joints: LOW BACK PAIN CLINICAL [...] Vee Amanda M.D.08/09/2023 4:34 PM Dictation Location: [place] [address] Transcribed By: [facility] 08/09/23 7508 Dictated By: Vee Amanda MD 08/09/23 1608 Signed By: 08/09/23 7376 [facility] XR cervical spine 2-3Von XR cervical spine 2-3V [facility] [employer] Other XR cervical spine 2-3V [address] [facility] [employer] Other XR cervical spine 2-3[place] [address] [employer] Other XR cervical spine 2-3V XRay Report [employer] Other XR cervical spine 2-3V Signed [employer] Other XR cervical spine 2-3V Patient: VITALY DOBSON MR#: [id number] [employer] Other XR cervical spine 2-3V : 1970 Acct:[id number] [employer] Other XR cervical spine 2-3V Age/Sex: 52 / M ADM Date: 07/28/23 [employer] Other XR cervical spine 2-3V Loc: LAB [employer] [employer] Other XR cervical spine 2-3V Attending Dr: Semaj Avery D.O. [employer] Other XR cervical spine 2-3V Ordering Physician: Semaj Avery D.O. [employer] Other XR cervical spine 2-3V Date of Service: 07/28/23 [employer] Other XR cervical spine 2-3V Accession Number(s): [id number] [employer] Other XR cervical spine 2-3V cc: Semaj Avery D.O. [employer] Other XR cervical spine 2-3V [address] [place] [address] [employer] Other XR cervical spine 2-3V [place] [id number] Sp[employer] Other XR cervical spine 2-3V [employer] Other XR cervical spine 2-3V Patient Name: Spaces 2 [employer] Other XR cervical spine 2-3V VITALY DOBSON [employer] Other XR cervical spine 2-3V MRN: [facility]:[id number] date: 1970 Sex: M [employer] Other XR cervical spine 2-3V Assigned Patient Location: [facility] [employer] Other XR cervical spine 2-3V Current Patient Location: [facility] [employer] Other XR cervical spine 2-3V Accession/Order Number: [id number] [employer] Other XR cervical spine 2-3V Exam Date: 07/28/2023 11:15 Report Date: 07/28/2023 12:14 [employer] Other XR cervical spine 2-3V At the request of: [employer] Other XR cervical spine 2-3V SEMAJ BALL Sp[employer] Other XR cervical spine 2-3V EXAMINATION: XR cervical spine 2-3V, XR lumbar spine 2-3V, XR thoracic spine [employer] Other XR cervical spine 2-3V 2V [employer] Other XR cervical spine 2-3V HISTORY: Scoliosis M41.20, Cervical Spondylosis M47.812 [employer] Other XR cervical spine 2-3V COMPARISON: No relevant comparison available. [employer] Other XR cervical spine 2-3V FINDINGS: Sp[employer] Other XR cervical spine 2-3V BONES: Cervical spine demonstrates marked left convex curvature and mild [employer] Other XR cervical spine 2-3V reversal of normal lordotic curvature. Suspect degenerative changes versus [employer] Other XR cervical spine 2-3V osseous bridging of the facet joints at most levels. No appreciable fracture [employer] Other XR cervical spine 2-3V or [employer] Other XR cervical spine 2-3V spondylolisthesis [employer] Other XR cervical spine 2-3V Thoracic spine demonstrates moderate left convex curvature and exaggerated [employer] Other XR cervical spine 2-3V kyphosis. No appreciable fracture or spondylolisthesis. [employer] Other XR cervical spine 2-3V Lumbar spine demonstrates mild curvature at the thoracolumbar junction. [employer] Other XR cervical spine 2-3V Straightening of the normal lordotic curvature, and multilevel marked Sp[employer] Other XR cervical spine 2-3V degenerative facet arthropathy. Bone encroachment on the L4-5 and L5-S1 neural Sp[employer] Other XR cervical spine 2-3V foramen. [employer] Other XR cervical spine 2-3V DISC SPACES: Calcification of the interspinous ligaments throughout. Cervical [employer] Other XR cervical spine 2-3V spine multilevel mild disc space narrowing. Thoracic spine multilevel mild Sp[employer] Other XR cervical spine 2-3V disc [employer] Other XR cervical spine 2-3V space narrowing. Lumbar spine and multilevel mild-moderate disc space Sp[employer] Other XR cervical spine 2-3V narrowing. [employer] Other XR cervical spine 2-3V PARASPINOUS: No paraspinous abnormality is seen. [employer] Other XR cervical spine 2-3V Negative [employer] Other XR cervical spine 2-3V XR/XR cervical spine 2-3V [employer] Other XR cervical spine 2-3V IMPRESSION: Spaces 2 [employer] Other XR cervical spine 2-3V 1. Limited examination due to patient needing to be imaged in the standing [employer] Other XR cervical spine 2-3V position. Sp[employer] Other XR cervical spine 2-3V 2. Multilevel scoliotic curvature of the cervical and thoracic spine. [employer] Other XR cervical spine 2-3V 3. Thoracic kyphosis. [employer] Other XR cervical spine 2-3V 4. Findings favor diffuse ankylosing spondylitis throughout the cervical, [employer] Other XR cervical spine 2-3V thoracic, lumbar spine. [employer] Other XR cervical spine 2-3V 5. Multilevel mild degenerative disc disease. [employer] Other XR cervical spine 2-3V 6. Marked degenerative facet arthropathy of lumbar spine. [employer] Other XR cervical spine 2-3V Electronically authenticated by: DAMI GOMEZ Date: 07/28/2023 12:14 [employer] Other XR cervical spine 2-3V Dictated By: Dami Gomez M.D. [facility] [employer] Other XR cervical spine 2-3V Signed By: 07/28/23 1217 [employer] Other XR cervical spine 2-3V DD/ 1214 [employer] Other XR cervical spine 2-3V TD/TT: Sail [employer]isher Machine: Spaces 2 [employer] Other XR lumbar spine 2-3Von 07-28 XR lumbar spine 2-3V Accession Number(s): [id number] [employer] Other XR lumbar spine 2-3V Accession/Order Number: [id number] [facility] Other XR lumbar spine 2-3V XR/XR lumbar spine 2-3V [employer] Other XR thoracic spine 2Von 07-28 XR thoracic spine 2V Accession Number(s): [id number] [employer] Other XR thoracic spine 2V Accession/Order Number: [id number] [employer] Other XR thoracic spine 2V XR/XR thoracic spine 2V [employer] Other LIPID PROFILE SEND OUTon Cholesterol [Mass/Vol] 259 mg/dL Critically high 100-199 [facility] Comment on above: Performed By: #### B MPLC, LIPIDLC #### [facility] [address] [place] [address] [address] David Brown Cholesterol in HDL [Mass/Vol] 16 mg/dL Critically low >39 [facility] Comment on above: Performed By: #### B MPLC, LIPIDLC #### [facility] [address] [place] [address] [address] David Brown Comment: Normal [facility] Comment on above: Performed By: #### B MPLC, LIPIDLC #### [facility] [address] [place] [address] [address] David Brown LDL Chol. Calc. ([facility]) Comment Abnormal 0-99 [facility] Comment on above: Result Comment: Trig lyceride result indicated is too high for an accurate LDL cholesterol estimation. Performed By: #### B MPLC, LIPIDLC #### [facility] [address] [place] [address] [address] David Brown Triglyceride [Mass/Vol] 2070 mg/dL Invalid Interpretation Code 0-149 [facility] Comment on above: Result Comment: Resu lts confirmed on dilution. Performed By: #### B MPLC, LIPIDLC #### [facility] [address] [place] [address] [address] David Brown VLDL Cholesterol, Calc Comment Abnormal 5-40 [facility] Comment on above: Result Comment: The calculation for the VLDL cholesterol is not valid when triglyceride level is >800 mg/dL. Performed By: #### B MPLC, LIPIDLC #### [facility] [address] [place] [address] Dr. David Brown PROF CHEM 8 ([facility]) SEND OUTon 02-04-2023 Calcium [Mass/Vol] 10.0 mg/dL Normal 8.7-10.2 [facility] Comment on above: Performed By: #### B MPLC, LIPIDLC #### [facility] [address] [place] [address] Dr. David Brown Chloride [Moles/Vol] 91 mmol/L Critically low 96-106 [facility] Comment on above: Performed By: #### B MPLC, LIPIDLC #### [facility] [address] [place] [address] Dr. David Brown CO2 [Moles/Vol] 24 mmol/L Normal 20-29 [facility] Comment on above: Performed By: #### B MPLC, LIPIDLC #### [facility] [address] [place] [address] Dr. David Brown Creatinine [Mass/Vol] 1.00 mg/dL Normal 0.76-1.27 [facility] Comment on above: Performed By: #### B MPLC, LIPIDLC #### [facility] [address] [place] [address] Dr. David Brown GFR/1.73 sq M.predicted among non-blacks MDRD (S/P/Bld) [Vol rate/Area] 90 mL/min/{1.73_m2} Normal >59 [facility] Comment on above: Performed By: #### B MPLC, LIPIDLC #### [facility] [address] [place] [address] Dr. David Brown Glucose [Mass/Vol] 205 mg/dL Critically high 70-99 [facility] Comment on above: Performed By: #### B MPLC, LIPIDLC #### [facility] [address] [place] [address] Dr. David Brown Potassium [Moles/Vol] 4.7 mmol/L Normal 3.5-5.2 [facility] Comment on above: Performed By: #### B MPLC, LIPIDLC #### [facility] [address] [place] [address] Dr. David Brown Sodium [Moles/Vol] 132 mmol/L Critically low 134-144 [facility] Comment on above: Performed By: #### B MPLC, LIPIDLC #### [facility] [address] [place] [address] Dr. David Brown Urea nitrogen [Mass/Vol] 18 mg/dL Normal 6-24 [facility] Comment on above: Performed By: #### B MPLC, LIPIDLC #### [facility] [address] [place] [address] Dr. David Brown Urea nitrogen/Creatinine [Mass ratio] 18 mg/mg Normal 9-20 [facility] Comment on above: Performed By: #### B MPLC, LIPIDLC #### [facility] [address] [place] [address] Dr. David Brown CBC AUTO DIFFon 02-03-2023 BASO # 0.1 103/ul Normal 0.0-0.1 [facility] Comment on above: Performed By: #### C BC #### [facility] [address] [place] [address] Dr. David Brown Basophils/100 WBC (Bld) 0.6 % Normal 0.2-2.0 [facility] Comment on above: Performed By: #### C BC #### [facility] [address] [place] [address] Dr. David Brown EO # 0.2 103/ul Normal 0.0-0.7 [facility] Comment on above: Performed By: #### C BC #### [facility] [address] [place] [address] Dr. David Brown Eosinophils/100 WBC (Bld) 2.2 % Normal 0.9-7.0 [facility] Comment on above: Performed By: #### C BC #### [facility] [address] [place] [address] Dr. David Brown Erythrocyte distribution width (RBC) [Ratio] 12.7 % Normal 11.0-15.0 [facility] Comment on above: Performed By: #### C BC #### [facility] [address] [place] [address] Dr. David Brown Hematocrit (Bld) [Volume fraction] 43.6 % Normal 42.0-54.0 [facility] Comment on above: Performed By: #### C BC #### [facility] [address] [place] [address] Dr. David Brown Hemoglobin (Bld) [Mass/Vol] 14.6 g/dL Normal 14.0-18.0 [facility] Comment on above: Performed By: #### C BC #### [facility] [address] [place] [address] Dr. David Brown IG # 0.03 10e3/ul Normal 0.00-0.03 [facility] Comment on above: Performed By: #### C BC #### [facility] [address] [place] [address] Dr. David Brown IG % 0.3 % Normal 0.0-0.5 [facility] Comment on above: Performed By: #### C BC #### [facility] [address] [place] [address] Dr. David Brown LYMPH # 3.6 103/ul Normal 1.2-3.8 [facility] Comment on above: Performed By: #### C BC #### [facility] [address] [place] [address] Dr. David Brown Lymphocytes/100 WBC (Bld) 37.8 % Normal 20.5-60.0 [facility] Comment on above: Performed By: #### C BC #### [facility] [facility] [address] [place] [address] Dr. David Brown MANUAL DIFF REQ NO Normal [facility] Comment on above: Performed By: #### C BC #### [facility] [address] [place] [address] Dr. David Brown MCH (RBC) [Entitic mass] 28.3 pg Normal 25.9-34.0 [facility] Comment on above: Performed By: #### C BC #### [facility] [address] [place] [address] Dr. David Brown MCHC (RBC) [Mass/Vol] 33.5 g/dL Normal 29.9-35.2 [facility] Comment on above: Performed By: #### C BC #### [facility] [address] [place] [address] Dr. David Brown MCV (RBC) [Entitic vol] 84.7 fL Normal 80.0-94.0 [facility] Comment on above: Performed By: #### C BC #### [facility] [address] [place] [address] Dr. David Brown MONO # 0.9 103/ul Critically high 0.3-0.8 [facility] Comment on above: Performed By: #### C BC #### [facility] [address] [place] [address] Dr. David Brown Monocytes/100 WBC (Bld) 9.6 % Normal 1.7-12.0 [facility] Comment on above: Performed By: #### C BC #### [facility] [address] [place] [address] Dr. David Brown NEUT # 4.8 103/ul Normal 1.4-6.5 [facility] Comment on above: Performed By: #### C BC #### [facility] [address] [place] [address] Dr. David Brown Neutrophils/100 WBC (Bld) 49.5 % Normal 43.0-75.0 [facility] Comment on above: Performed By: #### C BC #### [facility] [address] [place] [address] Dr. David Brown Platelet mean volume (Bld) [Entitic vol] 12.0 fL Normal 9.5-13.5 [facility] Comment on above: Performed By: #### C BC #### [facility] [address] [place] [address] Dr. David Brown PLT 254 103/ul Normal 150-450 [facility] Comment on above: Performed By: #### C BC #### [facility] [address] [place] [address] Dr. David Brown RBC 5.15 106/ul Normal 4.70-6.10 [facility] Comment on above: Performed By: #### C BC #### [facility] [address] [place] [address] Dr. David Brown WBC 9.6 103/ul Normal 4.0-11.0 [facility] Comment on above: Performed By: #### C BC #### [facility] [address] [place] [address] Dr. David Brown GLYCOHEMOGLOBIN A1Con 2022 ADA RECOMMENDATION SEE BELOW Normal [facility] Comment on above: Result Comment: ADA RECOMMENDED LIMIT 4.0 - 6.0 ADA THERAPEUTIC TARGET < 7.0 ACTION SUGGESTED > 7.0 Performed By: #### A 1C #### [facility] [address] [place] [address] Dr. David Brown Glucose [Mass/Vol] 212 mg/dL Normal [facility] Comment on above: Performed By: #### A 1C #### [facility] [address] [place] [address] Dr. David Brown HbA1c (Bld) [Mass fraction] 9.0 % Critically high 4.5-6.2 [facility] Comment on above: Performed By: #### A 1C #### [facility] [address] [place] [address] Dr. David Brown MICROALBUMIN, RAND URon 03- mALB 5.5 mg/L Normal <=30.0 [facility] Comment on above: Performed By: #### M ALBR #### [facility] [address] [place] [address] Dr. David Brown GLYCOHEMOGLOBIN A1Con 2021 ADA RECOMMENDATION SEE BELOW Normal [facility] Comment on above: Result Comment: ADA RECOMMENDED LIMIT 4.0 - 6.0 ADA THERAPEUTIC TARGET < 7.0 ACTION SUGGESTED > 7.0 Performed By: #### A 1C #### [facility] [address] [place], [place] [address] Dr. David Brown Glucose [Mass/Vol] 194 mg/dL Normal [facility] Comment on above: Performed By: #### A 1C #### [facility] [address] [place], [place] [address] Dr. David Brown HbA1c (Bld) [Mass fraction] 8.4 % Critically high 4.5-6.2 [facility] Comment on above: Performed By: #### A 1C #### [facility] [address] [place], [place] [address] Dr. David Brown Vital Signs Date Time Vital Sign Value Performing Clinician Facility 07-28-2023 09:30-0400 Body height 160.02 cm Semaj Ball Other [facility] 07-28-2023 09:30-0400 Body mass index (BMI) [Ratio] 47.33 kg/m2 Semaj [facility] Other [facility] Other 07-28-2023 09:30-0400 Body weight 121.2 kg Semaj Ball Other [facility] Other 07-28-2023 09:30-0400 Diastolic blood pressure 87 mm[Hg] Semaj Ball Other [facility] Other 07-28-2023 09:30-0400 Respiratory rate 12 /min Semaj Ball Other [facility] Other 07-28-2023 09:30-0400 Systolic blood pressure 132 mm[Hg] Semaj Ball Other [facility] Other 01-25-2023 12:30-0400 Body height 160.02 cm Semaj Ball Other [facility] Other 01-25-2023 12:30-0400 Body mass index (BMI) [Ratio] 47.75 kg/m2 Semaj Avery Other [facility] Other 01-25-2023 12:30-0400 Body weight 122.29 kg Semaj Avery Other [facility] Other 01-25-2023 12:30-0400 Diastolic blood pressure 82 mm[Hg] Semaj Avery Other [facility] Other 01-25-2023 12:30-0400 Respiratory rate 12 /min Semaj Avery Other [facility] Other 01-25-2023 12:30-0400 Systolic blood pressure 130 mm[Hg] Semaj Avery Other [facility] Other Encounters Encounter Date Encounter Type Care Provider Facility Start: 03-02-2024 End: 03-02-2024 ambulatory RODRICK R DOLCE Not Available Start: 01-01-2024 Evaluation and management of inpatient DELGADO GUIDO [facility] Start: 01-01-2024 End: 01-06-2024 Evaluation and management of inpatient SEMAJ AVERY [facility] Start: 11-18-2023 End: 11-18-2023 ambulatory RODRICK R DOLCE Not Available Start: 11-02-2023 End: 11-02-2023 ambulatory Semaj Avery Other [facility] Start: 11-02-2023 Telephone encounter Semaj Avery [facility] Start: 10-29-2023 End: 10-29-2023 ambulatory Semaj Avery Other [facility] Other Start: 10-29-2023 Telephone encounter Semaj Avery [facility] Start: 10-27-2023 End: 10-27-2023 ambulatory Semaj Avery Other [facility] Other Start: 10-27-2023 Telephone encounter Semaj Bennie [facility] Start: 10-05-2023 End: 10-05-2023 ambulatory Semaj Avery Other [facility] Other Start: 10-05-2023 Telephone encounter Semaj Avery [facility] Start: 08-09-2023 End: 08-09-2023 ambulatory Edi Obregonrow Facility:[facility] Start: 07-28-2023 End: 07-28-2023 ambulatory Semaj Avery Other [facility] Other Start: 07-28-2023 Office outpatient vi sit 25 minutes Semaj Avery [facility] Start: 07-28-2023 Telephone encounter Semaj Avery [facility] Start: 02-04-2023 End: 02-04-2023 ambulatory Semaj Avery Other [facility] Other Start: 02-04-2023 Telephone encounter Semaj Avery [facility] Start: 02-03-2023 Telephone encounter Semaj MILES [facility] Start: 02-03-2023 End: 02-04-[address] SEMAJ AVERY [facility] Other Start: 01-25-2023 End: 01-25-2023 ambulatory Semaj Avery Other [facility] Other Start: 01-25-2023 Encounter for genera l adult medical examination without abnormal findings Semaj Avery [facility] Start: 01-25-2023 Initial preventive exam Semaj Trinidad l [facility] Start: 01-25-2023 Patient encounter procedure Semaj Avery [facility] Start: 08-07-2022 End: 08-08-[address] SEMAJ AVERY Facility:[facility] Procedures Date Procedure Procedure Detail Performing Clinician Start: 02-03-[address] ROOT IN [facility] Comment on above: Performed By: #### P [facility] #### [facility] [address] [place] [address] Dr. David Brown Immunizations Immunization Date Immunization Notes Care Provider Fa cili 09-04-2022 influenza, injectabl e, quadrivalent, contains preservative Semaj Avery Other [facility] 09-04-2022 COVID-19 Pfizer (bivalent) Semaj Avery Other [facility] Other 09-04-2022 COVID-19 Pfizer (Pediatric) Semaj Avery Other [facility] Other 09-04-2022 influenza virus vaccine, split virus (incl. purified surface antigen) Semaj Avery Other [facility] Other 04-18-2022 zoster vaccine recombinant Semaj Avery Other [facility] Other 04-18-2022 zoster vaccine, live Benjami n Ball Other [facility] Other 02-13-2022 COVID-19 Vaccine Pfi zer - Documentation Purposes Only Semaj Avery Other [facility] Other 02-13-2022 Prevnar 20 Semaj Avery Other [facility] Other 02-13-2022 zoster vaccine recombinant Semaj Avery Other [facility] Other 02-13-2022 zoster vaccine, live Benjami n Ball Other [facility] Other 09-30-2021 COVID-19 Vaccine Pfi zer - Documentation Purposes Only Semaj Avery Other [facility] Other 02-11-2021 COVID-19 Vaccine Pfi zer - Documentation Purposes Only Semaj Avery Other [facility] Other 01-20-2021 COVID-19 Vaccine Pfi zer - Documentation Purposes Only Semaj Avery Other [facility] Other 07-22-2020 influenza virus vaccine, split virus (incl. purified surface antigen) Semaj Avery Other [facility] Other 09-13-2017 tetanus and diphther ia toxoids, adsorbed, preservative free, for adult use (5 Lf of tetanus toxoid and 2 Lf of diphtheria toxoid) Semaj Avery Other [facility] Other Payers Date Payer Category Payer Self-pay 1970 Unknown [id number] 2.16.84 [id number] 1970 Unknown [id number] 2.16.84 [id number] 1970 Unknown [id number] 2.16. [id number] 1970 Unknown [id number] 2.16. [id number] 1970 Unknown [id number] 2.16.84 [id number] 1970 Unknown [id number] 2.16.84 [id number] 1960 Medicaid [id number] 2. [id number] 1960 Medicare [id number] 2.1 [id number] Unknown [id number] 2.16.8 [id number] Social History Date Type Detail Facility Sex Assigned At [facility] Clinical Notes 01-25-2023 to 11-02-2023 Note Date & Type Note Facility 11-02-2023 Evaluation note Encounter Date Diagnosis Assessment Notes Oct, Ankylosing spondylitis of thoracolumbar region (ICD-10 - M45.5) [facility] 12-22-2023 Evaluation note* Encounter Date Diagnosis Assessment Notes Treatment Notes Treatment Clinical Notes Oct, Type 2 diabetes mellitus with hyperglycemia, without long-term current use of insulin (ICD-10 - E11.65) [facility] Other 11-28-2023 Evaluation note* Encounter Date Diagnosis Assessment Notes Treatment Notes Treatment Clinical Notes Sep, Type 2 diabetes mellitus with hyperglycemia, without long-term current use of insulin (ICD-10 - E11.65) [facility] Other 09-20-2023 Evaluation note* Encounter Date Diagnosis [...] creams, lidocaine patches and muscle relaxants at [facility] Other 09-20-2023 NoteProcedure(s): XR cervical spine 2-3V [facility] Other 09-20-2023 NoteProcedure: XR [facility] spine [facility] 09-20-2023 NoteProcedure(s): [facility] 09-20-2023 NoteProcedure: XR thoracic spine [facility] Other 09-20-2023 NoteProcedure(s): XR lumbar spine [facility] Other 09-20-2023 NoteProcedure: XR lumbar spine [facility] Other 03-30-2023 Evaluation note* Encounter Date Diagnosis Assessment Notes Treatment Notes Treatment Clinical Notes Jan, Mixed hyperlipidemia (ICD-10 - E78.2) [facility] Other 03-29-2023 Evaluation note* Encounter Date Diagnosis Assessment Notes Treatment Notes Treatment Clinical Notes Jan, Type 2 diabetes mellitus with hyperglycemia, without long-term current use of insulin (ICD-10 - E11.65) [facility] Other 03-20-2023 Evaluation note* Encounter Date Diagnosis [...] reviewed and amended by provider signed below. [facility] Other Evaluation noteNo InformationNort [facility] Other History general Narrative - Reported* Type [...] HEM [place] Hospitalization History SEE SURGICAL HX [facility] Other Reason for referral (narrative)* Reason Referral for ankylos ing spondylitis Diagnosis 1 Ankylosing spondylit is of thoracolumbar region (M45.5) Diagnosis 2 Scoliosis (and kypho scoliosis), idiopathic (M41.20) Diagnosis 3 Cervical spondylosis (M47.812) Referral Organization [facility] Referring Provider First Name Semaj Referring [...] medical treatment. Clinical Notes Include XR reports [facility] Other Summary Purpose Family History No Family [...] content) DATE CREATED AUTHOR 02/14/2023 [facility] DATE CREATED AUTHOR AUTHOR'S ORGANIZ ATION 08/18/2023 [facility] DATE CREATED AUTHOR AUTHOR'S ORGANIZ ATION 01/13/2024 [facility] DATE CREATED AUTHOR AUTHOR'S ORGANIZ ATION 03/04/2024 [facility] EPIC FOR RECORDS PERTAINING [...] BE BASED ON THE PRIMARY CLINICAL RECORDS. [facility]. provides no warranty or guarantee of the accuracy or completeness of information in this document.
== END 2024-04-19 19:55 | disposition home or self-care (01) ==
LOC: SLEEP 19:55
PROVIDERS: PCP Internal Medicine; Visit Provider Internal Medicine
DX: G47.33 Obstructive sleep apnea (adult) (pediatric) (principal)
CPT/HCPCS: 95811

== ENCOUNTER 2024-06-26 09:38 | Outpatient (OUT) | payer MEDICARE, MEDICAID, SELFPAY ==
--- OUTSIDE RECORDS SUMMARY | 2024-06-26 09:57 | XMS_ITS | CCD ---
Author Organization [facility] Care Team Providers Care Nonprofit Financial Controller Name Role Phone Semaj Avery Unavailable BENNIE, DR PLATT Primary Care Unavailable BENNIE, DR PLATT Consulting Unavailable BENNIE, DR PLATT Attending Unavailable BENNIE, DR PLATT Admitting Unavailable BENNIE, DR PLATT Consulting Unavailable BENNIE, DR PLATT Attending Unavailable BENNIE, DR PLATT Admitting Unavailable BENNIE, DR PLATT Primary Care Unavailable Martinez, Edi Attending Unavailable Martinez, Edi Admitting Unavailable Bennie, eSmaj Primary Care Unavailable BENNIE, SEMAJ Primary Care Unavailable TETE GUIDO Attending Unavailable JANNET NUNN Admitting Unavailable DELGADO GUIDO Consulting UnavailJANNET Vail Consulting Unavailable NURASHAHRIAR Hernandez Consulting Unavailable DELGADO GUIDO Attending Unavailabl DELGADO Savage Referring UnavailSEMAJ Richards Primary Care Unavailable RODRICK THOMAS Attending Unavailable RODRICK THOMAS Attending Unavailable RODRICK THOMAS [...] route three times daily as needed Ipratropium [place] 0.06 % 2 sprays in e ach [...] days Nov, Active take 1 capsule by [facility] once at bedtime as needed tiZANidine HCl [...] Sig (Normalized) Sig (Original) polyethylene glycol 3350 36056 mg powder for oral solution (9 sources) [...] 02-05-2023 Chronic Other aftercare (3 sources) Other 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; Translations: [OTH HALFWAY CURRENT DRUG THERAPY] Onset: 02-05-2023 Episodic Other [...] Anion gap [Moles/Vol] 8 mmol/L Low 9-17 [facility] Comment on above: Performed By: #### B MPX, CDP ####[facility] [address] [place], [place] [phone] Director: Rafa Prieto MD Calcium [Mass/Vol] 7.9 mg/dL Low 8.6-10.4 [facility] Comment on above: Performed By: #### B MPX, CDP ####[facility] [address] [place], [place] [phone] Director: Rafa Prieto MD Chloride [Moles/Vol] 97 mmol/L Low 98-107 [facility] Comment on above: Performed By: #### B MPX, CDP ####[facility] [address] [place], [place] [id number])[phone] Director: Rafa Prieto MD CO2 [Moles/Vol] 25 mmol/L Normal 20-31 [facility] Comment on above: Performed By: #### B MPX, CDP ####[facility] [address] [place] [address] [phone] Director: Rafa Prieto MD Creatinine [Mass/Vol] 0.6 mg/dL Low 0.7-1.2 [facility] Comment on above: Performed By: #### B MPX, CDP ####[facility] [address] [place] [address] [phone] Director: Rafa Prieto MD GFR/1.73 sq M.predicted among non-blacks MDRD (S/P/Bld) [Vol rate/Area] mL/min/{1.73_m2} Normal >60 [facility] Comment on above: Result Comment: [...] secretion. Performed By: #### B MPX, CDP ####[facility] [address] [place], [place] [phone] Director: Rafa Prieto MD Glucose [Mass/Vol] 122 mg/dL High 70-99 [facility] Comment on above: Performed By: #### B MPX, CDP ####[facility] [address] [place], [place] [phone] Director: Rafa Prieto MD Potassium [Moles/Vol] 3.9 mmol/L Normal 3.7-5.3 [facility] Comment on above: Performed By: #### B MPX, CDP ####[facility] [address] [place], [place] [id number])[phone] Director: Rafa Prieto MD Sodium [Moles/Vol] 130 mmol/L Low 135-144 [facility] Comment on above: Performed By: #### B MPX, CDP ####[facility] [address] [place], [place] [phone] Director: Rafa Prieto MD Urea nitrogen [Mass/Vol] 10 mg/dL Normal 6-20 [facility] Comment on above: Performed By: #### B MPX, CDP ####[facility] [address] [place], [place] [phone] Director: Rafa Prieto MD CBC with Diffon 01-06-2024 Abs. Basophil 0.04 k/uL Normal 0.00-0.20 [facility] Comment on above: Performed By: #### H EPXA, PTT #### [employer] [address] [place] [address] Scientific Editor: Rafa Prieto MD Abs.Imm.Granulocyte 0.03 k/uL Normal 0.00-0.30 [facility] Comment on above: Performed By: #### H EPXA, PTT #### [employer] [address] [place] [address] Scientific Editor: Rafa Prieto MD Abs.Neutrophil (Seg) 5.00 k/uL Normal 1.50-8.10 [facility] Comment on above: Performed By: #### H EPXA, PTT #### [facility] [employer] [address] [place] [address] Scientific Editor: Rafa Prieto MD Basophils/100 WBC (Bld) 1 % Normal 0-2 [facility] Comment on above: Performed By: #### H EPXA, PTT #### [facility] [employer] [address] [place] [address] Scientific Editor: Rafa Prieto MD Eosinophils (Bld) [#/Vol] 0.38 10*3/uL Normal 0.00-0.44 [facility] Comment on above: Performed By: #### H EPXA, PTT #### [address] [address] Scientific Editor: Rafa Prieto MD Eosinophils/100 WBC (Bld) 5 % High 1-4 [facility] Comment on above: Performed By: #### H EPXA, PTT #### [address] [address] Scientific Editor: Rafa Prieto MD Erythrocyte distribution width (RBC) [Ratio] 16.5 % High 11.8-14.4 [facility] Comment on above: Performed By: #### H EPXA, PTT #### [facility] [employer] [address] [place] [address] Scientific Editor: Raaf Prieto MD Hematocrit (Bld) [Volume fraction] 37.0 % Low 40.7-50.3 [facility] Comment on above: Performed By: #### H EPXA, PTT #### [facility] [employer] [address] [place] [address] Scientific Editor: Rafa Prieto MD Hemoglobin (Bld) [Mass/Vol] 10.7 g/dL Low 13.0-17.0 [facility] Comment on above: Performed By: #### H EPXA, PTT #### [address] [address] Scientific Editor: Rafa Prieto MD Immature granulocytes/100 WBC (Bld) 0 % Normal 0 [facility] Comment on above: Performed By: #### H EPXA, PTT #### [address] [address] Scientific Editor: Rafa Prieto MD Lymphocytes (Bld) [#/Vol] 1.55 10*3/uL Normal 1.10-3.70 [facility] Comment on above: Performed By: #### H EPXA, PTT #### [address] [address] Scientific Editor: Rafa Prieto MD Lymphocytes/100 WBC (Bld) 19 % Low 24-43 [facility] Comment on above: Performed By: #### H EPXA, PTT #### [address] [address] Scientific Editor: Rafa Prieto MD MCH (RBC) [Entitic mass] 24.0 pg Low 25.2-33.5 [facility] Comment on above: Performed By: #### H EPXA, PTT #### [address] [address] Scientific Editor: Rafa Prieto MD MCHC (RBC) [Mass/Vol] 28.9 g/dL Normal 28.4-34.8 [facility] Comment on above: Performed By: #### H EPXA, PTT #### [address] [address] Scientific Editor: Rafa Prieto MD MCV (RBC) [Entitic vol] 83.0 fL Normal 82.6-102.9 [facility] Comment on above: Performed By: #### H EPXA, PTT #### [address] [address] Scientific Editor: Rafa Prieto MD Monocytes (Bld) [#/Vol] 0.99 10*3/uL Normal 0.10-1.20 [facility] Comment on above: Performed By: #### H EPXA, PTT #### [address] [address] Scientific Editor: Rafa Prieto MD Monocytes/100 WBC (Bld) 12 % Normal 3-12 [facility] Comment on above: Performed By: #### H EPXA, PTT #### [address] [address] Scientific Editor: Rafa Prieto MD Neutrophil (Seg) 63 % Normal 36-65 [facility] Comment on above: Performed By: #### H EPXA, PTT #### [address] [address] Scientific Editor: Rafa Prieto MD NRBC Automated 0.0 per 100 WBC Normal 0.0 [facility] Comment on above: Performed By: #### H EPXA, PTT #### [address] [address] Scientific Editor: Rafa Prieto MD Platelet mean volume (Bld) [Entitic vol] 10.8 fL Normal 8.1-13.5 [facility] Comment on above: Performed By: #### H EPXA, PTT #### [address] [address] Scientific Editor: Rafa Prieto MD Platelets (Bld) [#/Vol] 204 10*3/uL Normal 138-453 [facility] Comment on above: Performed By: #### H EPXA, PTT #### [address] [address] Scientific Editor: Rafa Prieto MD RBC (Bld) [#/Vol] 4.46 10*6/uL Normal 4.21-5.77 [facility] Comment on above: Performed By: #### H EPXA, PTT #### [facility] [place] [address] Scientific Editor: Rafa Prieto MD RBC morphology finding Nom (Bld) ANISOCYTOSIS PRESENT Normal [facility] Comment on above: Performed By: #### H EPXA, PTT #### [facility] [address] [place] [address] Scientific Editor: Rafa Prieto MD WBC (Bld) [#/Vol] 8.0 10*3/uL Normal 3.5-11.3 [facility] Comment on above: Performed By: #### H EPXA, PTT #### [facility] [employer] [address] [place] [address] Scientific Editor: Rafa Prieto MD Cult,Urineon 01-06-2024 Cult,Urine Specimen Description .CLEAN CATCH URINE Culture NO GROWTH Report Status FINAL 01/06/2024 Normal [facility] Comment on above: Performed By: #### U RC #### [address] [address] Scientific Editor: Rafa Prieto MD Glucose,Whole Bloodon 2023 Glucose [Mass/Vol] 174 mg/dL High 75-110 [facility] Glucose [Mass/Vol] 192 mg/dL High 75-110 [facility] Glucose [Mass/Vol] 119 mg/dL High 75-110 [facility] Heparin Anti-Xaon 01-06-2024 Heparin Anti-Xa 0.41 IU/L Normal [facility] Comment on above: Performed By: #### H EPXA ####[facility] [address] [place] [address] Lab Director: Rafa Prieto MD Basic Metab w/rfx MGon 01-05 Anion gap [Moles/Vol] 11 mmol/L Normal 9-17 [facility] Comment on above: Performed By: #### U RC #### [address] [address] Scientific Editor: Rafa Prieto MD Calcium [Mass/Vol] 7.9 mg/dL Low 8.6-10.4 [facility] Comment on above: Performed By: #### U RC #### [address] [address] Scientific Editor: Rafa Prieto MD Chloride [Moles/Vol] 99 mmol/L Normal 98-107 [facility] Comment on above: Performed By: #### U RC #### [address] [address] Scientific Editor: Rafa Prieto MD CO2 [Moles/Vol] 24 mmol/L Normal 20-31 [facility] Comment on above: Performed By: #### U RC #### [address] [address] Scientific Editor: Rafa Prieto MD Creatinine [Mass/Vol] 0.6 mg/dL Low 0.7-1.2 [facility] Comment on above: Performed By: #### U RC #### [address] [address] Scientific Editor: Rafa Prieto MD GFR/1.73 sq M.predicted among non-blacks MDRD (S/P/Bld) [Vol rate/Area] mL/min/{1.73_m2} Normal >60 [facility] Comment on above: Result Comment: [...] secretion. Performed By: #### U RC #### [address] [address] Scientific Editor: Rafa Prieto MD Glucose [Mass/Vol] 97 mg/dL Normal 70-99 [facility] Comment on above: Performed By: #### U RC #### [address] [address] Scientific Editor: Rafa Prieto MD Potassium [Moles/Vol] 4.3 mmol/L Normal 3.7-5.3 [facility] Comment on above: Performed By: #### U RC #### [address] [address] Scientific Editor: Rafa Prieto MD Sodium [Moles/Vol] 134 mmol/L Low 135-144 [facility] Comment on above: Performed By: #### U RC #### [address] [address] Scientific Editor: Rafa Prieto MD Urea nitrogen [Mass/Vol] 10 mg/dL Normal 6-20 [facility] Comment on above: Performed By: #### U RC #### [address] [address] Scientific Editor: Rafa Prieto MD CBC with Diffon 01-05-2024 Abs. Basophil 0.00 k/uL Normal 0.0-0.2 [facility] Comment on above: Performed By: #### U RC #### [address] [address] Scientific Editor: Rafa Prieto MD Abs.Imm.Granulocyte 0.00 k/uL Normal 0.00-0.30 [facility] Comment on above: Performed By: #### U RC #### [address] [address] Scientific Editor: Rafa Prieto MD Abs.Neutrophil (Seg) 4.99 k/uL Normal 1.8-7.7 [facility] Comment on above: Performed By: #### U RC #### [address] [address] Scientific Editor: Rafa Prieto MD Basophils/100 WBC (Bld) 0 % Normal 0-2 [facility] Comment on above: Performed By: #### U RC #### [address] [address] Scientific Editor: Rafa Prieto MD Eosinophils (Bld) [#/Vol] 0.39 10*3/uL Normal 0.0-0.4 [facility] Comment on above: Performed By: #### U RC #### [address] [address] Scientific Editor: Rafa Prieto MD Eosinophils/100 WBC (Bld) 5 % High 1-4 [facility] Comment on above: Performed By: #### U RC #### [address] [address] Scientific Editor: Rafa Prieto MD Immature granulocytes/100 WBC (Bld) 0 % Normal 0 [facility] Comment on above: Performed By: #### U RC #### [address] [address] Scientific Editor: Rafa Prieto MD Lymphocytes (Bld) [#/Vol] 1.48 10*3/uL Normal 1.0-4.8 [facility] Comment on above: Performed By: #### U RC #### [address] [address] Scientific Editor: Rafa Prieto MD Lymphocytes/100 WBC (Bld) 19 % Low 24-44 [facility] Comment on above: Performed By: #### U RC #### [address] [address] Scientific Editor: Rafa Prieto MD Monocytes (Bld) [#/Vol] 0.94 10*3/uL High 0.1-0.8 [facility] Comment on above: Performed By: #### U RC #### [address] [address] Scientific Editor: Rafa Prieto MD Monocytes/100 WBC (Bld) 12 % High 1-7 [facility] Comment on above: Performed By: #### U RC #### [address] [address] Scientific Editor: Rafa Prieto MD Morphology Arncho (Bld) [Interp] ANISOCYTOSIS PRESENT Normal [facility] Comment on above: Performed By: #### U RC #### [address] [address] Scientific Editor: Rafa Prieto MD Neutrophil (Seg) 64 % Normal 36-66 [facility] Comment on above: Performed By: #### U RC #### [address] [address] Scientific Editor: Rafa Prieto MD Erythrocyte distribution width (RBC) [Ratio] 16.6 % High 11.8-14.4 [facility] Comment on above: Performed By: #### U RC #### [address] [address] Scientific Editor: Rafa Prieto MD Hematocrit (Bld) [Volume fraction] 38.6 % Low 40.7-50.3 [facility] Comment on above: Performed By: #### U RC #### [address] [address] Scientific Editor: Rafa Prieto MD Hemoglobin (Bld) [Mass/Vol] 10.9 g/dL Low 13.0-17.0 [facility] Comment on above: Performed By: #### U RC #### [address] [address] Scientific Editor: Rafa Prieto MD MCH (RBC) [Entitic mass] 24.0 pg Low 25.2-33.5 [facility] Comment on above: Performed By: #### U RC #### [address] [address] Scientific Editor: Rafa Prieto MD MCHC (RBC) [Mass/Vol] 28.2 g/dL Low 28.4-34.8 [facility] Comment on above: Result Comment: TEST CONFIRMED Performed By: #### U RC #### [place] [address] Scientific Editor: Rafa Prieto MD MCV (RBC) [Entitic vol] 85.0 fL Normal 82.6-102.9 [facility] Comment on above: Performed By: #### U RC #### [address] [address] Scientific Editor: Rafa Prieto MD NRBC Automated 0.0 per 100 WBC Normal 0.0 [facility] Comment on above: Performed By: #### U RC #### [address] [address] Scientific Editor: Rafa Prieto MD Platelet mean volume (Bld) [Entitic vol] 11.9 fL Normal 8.1-13.5 [facility] Comment on above: Performed By: #### U RC #### [address] [address] Scientific Editor: Rafa Priteo MD Platelets (Bld) [#/Vol] 192 10*3/uL Normal 138-453 [facility] Comment on above: Performed By: #### U RC #### [address] [place] [address] Scientific Editor: Rafa Prieto MD RBC (Bld) [#/Vol] 4.54 10*6/uL Normal 4.21-5.77 [facility] Comment on above: Performed By: #### U RC #### [address] [address] Scientific Editor: Rafa Prieto MD WBC (Bld) [#/Vol] 7.8 10*3/uL Normal 3.5-11.3 [facility] Comment on above: Performed By: #### U RC #### [address] [address] Scientific Editor: Rafa Prieto MD Glucose,Whole Bloodon 2023 Glucose [Mass/Vol] 147 mg/dL High 75-110 [facility] Glucose [Mass/Vol] 178 mg/dL High 75-110 [facility] Glucose [Mass/Vol] 158 mg/dL High 75-110 [facility] Glucose [Mass/Vol] 106 mg/dL Normal 75-110 [facility] Heparin Anti-Xaon 01-05-2024 Heparin Anti-Xa 0.41 IU/L Normal [facility] Comment on above: Performed By: #### U RC #### [address] [address] Scientific Editor: Rafa Prieto MD Basic Metab w/rfx MGon 01-04 Anion gap [Moles/Vol] 8 mmol/L Low 9-17 [facility] Comment on above: Performed By: #### H EPXA, PTT #### [address] [address] Scientific Editor: Rafa Prieto MD Calcium [Mass/Vol] 7.7 mg/dL Low 8.6-10.4 [facility] Comment on above: Performed By: #### H EPXA, PTT #### [facility] [address] [place] [address] Scientific Editor: Rafa Prieto MD Chloride [Moles/Vol] 98 mmol/L Normal 98-107 [facility] Comment on above: Performed By: #### H EPXA, PTT #### [facility] [address] [place] [address] Scientific Editor: Rafa Prieto MD CO2 [Moles/Vol] 26 mmol/L Normal 20-31 [facility] Comment on above: Performed By: #### H EPXA, PTT #### [facility] [address] [place] [address] Scientific Editor: Rafa Prieto MD Creatinine [Mass/Vol] 0.6 mg/dL Low 0.7-1.2 [facility] Comment on above: Performed By: #### H EPXA, PTT #### [address] [address] Scientific Editor: Rafa Prieto MD GFR/1.73 sq M.predicted among non-blacks MDRD (S/P/Bld) [Vol rate/Area] mL/min/{1.73_m2} Normal >60 [facility] Comment on above: Result Comment: [...] Performed By: #### H EPXA, PTT #### [facility] [employer] [address] [place] [address] Scientific Editor: Rafa Prieto MD Glucose [Mass/Vol] 94 mg/dL Normal 70-99 [facility] Comment on above: Performed By: #### H EPXA, PTT #### [facility] [employer] [address] [place] [address] Scientific Editor: Rafa Prieto MD Potassium [Moles/Vol] 3.9 mmol/L Normal 3.7-5.3 [facility] Comment on above: Performed By: #### H EPXA, PTT #### [facility] [employer] [address] [place] [address] Scientific Editor: Rafa Prieto MD Sodium [Moles/Vol] 132 mmol/L Low 135-144 [facility] Comment on above: Performed By: #### H EPXA, PTT #### [facility] [employer] [address] [place] [address] Scientific Editor: Rafa Prieto MD Urea nitrogen [Mass/Vol] 12 mg/dL Normal 6-20 [facility] Comment on above: Performed By: #### H EPXA, PTT #### [facility] [employer] [address] [place] [address] Scientific Editor: Rafa Prieto MD CBC with Diffon 01-04-2024 Abs. Basophil 0.04 k/uL Normal 0.00-0.20 [facility] Comment on above: Performed By: #### H EPXA, PTT #### [facility] [employer] [address] [place] [address] Scientific Editor: Rafa Prieto MD Abs.Imm.Granulocyte 0.04 k/uL Normal 0.00-0.30 [facility] Comment on above: Performed By: #### H EPXA, PTT #### [facility] [employer] [address] [place] [address] Scientific Editor: Rafa Prieto MD Abs.Neutrophil (Seg) 5.71 k/uL Normal 1.50-8.10 [facility] Comment on above: Performed By: #### H EPXA, PTT #### [facility] [employer] [address] [place] [address] Scientific Editor: Rafa Prieto MD Basophils/100 WBC (Bld) 0 % Normal 0-2 [facility] Comment on above: Performed By: #### H EPXA, PTT #### [facility] [employer] [address] [place] [address] Scientific Editor: Rafa Prieto MD Eosinophils (Bld) [#/Vol] 0.30 10*3/uL Normal 0.00-0.44 [facility] Comment on above: Performed By: #### H EPXA, PTT #### [facility] [employer] [address] [place] [address] Scientific Editor: Rafa Prieto MD Eosinophils/100 WBC (Bld) 3 % Normal 1-4 [facility] Comment on above: Performed By: #### H EPXA, PTT #### [facility] [employer] [address] [place] [address] Scientific Editor: Rafa Prieto MD Erythrocyte distribution width (RBC) [Ratio] 16.1 % High 11.8-14.4 [facility] Comment on above: Performed By: #### H EPXA, PTT #### [facility] [employer] [address] [place] [address] Scientific Editor: Rafa Prieto MD Hematocrit (Bld) [Volume fraction] 36.0 % Low 40.7-50.3 [facility] Comment on above: Performed By: #### H EPXA, PTT #### [facility] [employer] [address] [place] [address] Scientific Editor: Rafa Prieto MD Hemoglobin (Bld) [Mass/Vol] 10.5 g/dL Low 13.0-17.0 [facility] Comment on above: Performed By: #### H EPXA, PTT #### [facility] [employer] [address] [place] [address] Scientific Editor: Rafa Prieto MD Immature granulocytes/100 WBC (Bld) 0 % Normal 0 [facility] Comment on above: Performed By: #### H EPXA, PTT #### [address] [address] Scientific Editor: Rafa Prieto MD Lymphocytes (Bld) [#/Vol] 1.76 10*3/uL Normal 1.10-3.70 [facility] Comment on above: Performed By: #### H EPXA, PTT #### [address] [address] Scientific Editor: Rafa Prieto MD Lymphocytes/100 WBC (Bld) 20 % Low 24-43 [facility] Comment on above: Performed By: #### H EPXA, PTT #### [address] [address] Scientific Editor: Rafa Prieto MD MCH (RBC) [Entitic mass] 24.1 pg Low 25.2-33.5 [facility] Comment on above: Performed By: #### H EPXA, PTT #### [facility] [employer] [address] [place] [address] Scientific Editor: Rafa Prieto MD MCHC (RBC) [Mass/Vol] 29.2 g/dL Normal 28.4-34.8 [facility] Comment on above: Performed By: #### H EPXA, PTT #### [facility] [employer] [address] [place] [address] Scientific Editor: Rafa Prieto MD MCV (RBC) [Entitic vol] 82.8 fL Normal 82.6-102.9 [facility] Comment on above: Performed By: #### H EPXA, PTT #### [address] [address] Scientific Editor: Rafa Prieto MD Monocytes (Bld) [#/Vol] 1.12 10*3/uL Normal 0.10-1.20 [facility] Comment on above: Performed By: #### H EPXA, PTT #### [address] [address] Scientific Editor: Rafa Prieto MD Monocytes/100 WBC (Bld) 13 % High 3-12 [facility] Comment on above: Performed By: #### H EPXA, PTT #### [address] [address] Scientific Editor: Rafa Prieto MD Neutrophil (Seg) 64 % Normal 36-65 [facility] Comment on above: Performed By: #### H EPXA, PTT #### [address] [address] Scientific Editor: Rafa Prieto MD NRBC Automated 0.0 per 100 WBC Normal 0.0 [facility] Comment on above: Performed By: #### H EPXA, PTT #### [address] [address] Scientific Editor: Rafa Prieto MD Platelet mean volume (Bld) [Entitic vol] 11.1 fL Normal 8.1-13.5 [facility] Comment on above: Performed By: #### H EPXA, PTT #### [address] [address] Scientific Editor: Rafa Prieto MD Platelets (Bld) [#/Vol] 207 10*3/uL Normal 138-453 [facility] Comment on above: Performed By: #### H EPXA, PTT #### [address] [address] Scientific Editor: Rafa Prieto MD RBC (Bld) [#/Vol] 4.35 10*6/uL Normal 4.21-5.77 [facility] Comment on above: Performed By: #### H EPXA, PTT #### [employer] [address] [place] [address] Scientific Editor: Rafa Prieto MD RBC morphology finding Nom (Bld) ANISOCYTOSIS PRESENT Normal [facility] Comment on above: Performed By: #### H EPXA, PTT #### [facility] [address] [place] [address] Scientific Editor: Rafa Prieto MD WBC (Bld) [#/Vol] 9.0 10*3/uL Normal 3.5-11.3 [facility] Comment on above: Performed By: #### H EPXA, PTT #### [employer] [address] [place] [address] Scientific Editor: Rafa Prieto MD Glucose,Whole Bloodon 2023 Glucose [Mass/Vol] 143 mg/dL High 75-110 [facility] Glucose [Mass/Vol] 150 mg/dL High 75-110 [facility] Hemoglobin A1Con 01-04-2024 Glucose [Mass/Vol] 140 mg/dL Normal [facility] Comment on above: Result Comment: The ADA and AACC recommend providing the estimated average glucose result to permit better patient understanding of their HBA1c result. Performed By: #### H EPXA, PTT #### [employer] [address] [place] [address] Scientific Editor: Rafa Prieto MD HbA1c (Bld) [Mass fraction] 6.5 % High 4.0-6.0 [facility] Comment on above: Performed By: #### H EPXA, PTT #### [employer] [address] [place] [address] 44796 Scientific Editor: Rafa Prieto MD Heparin Anti-Xaon 01-04-2024 Heparin Anti-Xa 0.53 IU/L Normal [facility] Comment on above: Performed By: #### T ROPI #### [employer] [address] [place] [address] 07780 Scientific Editor: Rafa Prieto MD Heparin Anti-Xa 0.65 IU/L Normal [facility] Comment on above: Performed By: #### U RC #### [facility] [employer] [address] [place] [address] 42567 Scientific Editor: Rafa Prieto MD Heparin Anti-Xa 0.29 IU/L Normal [facility] Comment on above: Performed By: #### H EPXA, PTT #### [facility] [address] [place] [address] 05064 Scientific Editor: Rafa Prieto MD Basic Metab w/rfx MGon 01-03 Anion gap [Moles/Vol] 8 mmol/L Low 9-17 [facility] Comment on above: Performed By: #### H EPXA, PTT #### [facility] [employer] [address] [place] [address] 73027 Scientific Editor: Rafa Prieto MD Calcium [Mass/Vol] 7.8 mg/dL Low 8.6-10.4 [facility] Comment on above: Performed By: #### H EPXA, PTT #### [facility] [employer] [address] [place] [address] 19859 Scientific Editor: Rafa Prieto MD Chloride [Moles/Vol] 94 mmol/L Low 98-107 [facility] Comment on above: Performed By: #### H EPXA, PTT #### [facility] [employer] [address] [place] [address] 93093 Scientific Editor: Rafa Prieto MD CO2 [Moles/Vol] 25 mmol/L Normal 20-31 [facility] Comment on above: Performed By: #### H EPXA, PTT #### [facility] [address] [place] [address] 35761 Scientific Editor: Rafa Prieto MD Creatinine [Mass/Vol] 0.6 mg/dL Low 0.7-1.2 [facility] Comment on above: Performed By: #### H EPXA, PTT #### [employer] [address] [place] [address] 27287 Scientific Editor: Rafa Prieto MD GFR/1.73 sq M.predicted among non-blacks MDRD (S/P/Bld) [Vol rate/Area] mL/min/{1.73_m2} Normal >60 [facility] Comment on above: Result Comment: [...] Performed By: #### H EPXA, PTT #### [employer] [address] [place] [address] 17836 Scientific Editor: Rafa Prieto MD Glucose [Mass/Vol] 108 mg/dL High 70-99 [facility] Comment on above: Performed By: #### H EPXA, PTT #### [facility] [address] [place] [address] 10931 Scientific Editor: Rafa Prieto MD Potassium [Moles/Vol] 3.7 mmol/L Normal 3.7-5.3 [facility] Comment on above: Performed By: #### H EPXA, PTT #### [employer] [address] [place] [address] 51777 Scientific Editor: Rafa Prieto MD Sodium [Moles/Vol] 127 mmol/L Low 135-144 [facility] Comment on above: Performed By: #### H EPXA, PTT #### [employer] [address] [place] [address] 22553 Scientific Editor: Rafa Prieto MD Urea nitrogen [Mass/Vol] 15 mg/dL Normal 6-20 [facility] Comment on above: Performed By: #### H EPXA, PTT #### [facility] [employer] [facility] [place] [address] Scientific Editor: Rafa Prieto MD Brain Natri. Peptideon 01-03 Natriuretic peptide B (Bld) [Mass/Vol] 1253 pg/mL High <300 [facility] Comment on above: Result Comment: An age-independent cutoff point of 300 pg/ml has a 98% negative predictive value excluding acute heart failure. Performed By: #### H EPXA, BNP, TROPI ####[facility] [address] [place] [address]58[facility])[phone] Director: Rafa Prieto MD CBC with Diffon 2 Abs. Basophil 0.05 k/uL Normal 0.00-0.20 [facility] Comment on above: Performed By: #### H EPXA, PTT #### [facility] [employer] [address] [place] [address] 77836 Scientific Editor: Raaf Prieto MD Abs.Imm.Granulocyte <0.03 Normal 0.00-0.30 [facility] Comment on above: Performed By: #### H EPXA, PTT #### [facility] [employer] [address] [place] [address] 90301 Scientific Editor: Rafa Prieto MD Abs.Neutrophil (Seg) 4.63 k/uL Normal 1.50-8.10 [facility] Comment on above: Performed By: #### H EPXA, PTT #### [facility] [employer] [address] [place] [address] 00305 Scientific Editor: Rafa Prieto MD Basophils/100 WBC (Bld) 1 % Normal 0-2 [facility] Comment on above: Performed By: #### H EPXA, PTT #### [facility] [employer] [address] [place] [address] 17473 Scientific Editor: Rafa Prieto MD Eosinophils (Bld) [#/Vol] 0.23 10*3/uL Normal 0.00-0.44 [facility] Comment on above: Performed By: #### H EPXA, PTT #### [address] [address] Scientific Editor: Rafa Prieto MD Eosinophils/100 WBC (Bld) 3 % Normal 1-4 [facility] Comment on above: Performed By: #### H EPXA, PTT #### [facility] [employer] [address] [place] [address] 15610 Scientific Editor: Rafa Prieto MD Erythrocyte distribution width (RBC) [Ratio] 16.2 % High 11.8-14.4 [facility] Comment on above: Performed By: #### H EPXA, PTT #### [address] [address] Scientific Editor: Rafa Prieto MD Hematocrit (Bld) [Volume fraction] 37.7 % Low 40.7-50.3 [facility] Comment on above: Performed By: #### H EPXA, PTT #### [address] [address] Scientific Editor: Rafa Prieto MD Hemoglobin (Bld) [Mass/Vol] 10.9 g/dL Low 13.0-17.0 [facility] Comment on above: Performed By: #### H EPXA, PTT #### [address] [address] Scientific Editor: Rafa Prieto MD Immature granulocytes/100 WBC (Bld) 0 % Normal 0 [facility] Comment on above: Performed By: #### H EPXA, PTT #### [facility] [employer] [address] [place] [address] 12379 Scientific Editor: Rafa Prieto MD Lymphocytes (Bld) [#/Vol] 1.96 10*3/uL Normal 1.10-3.70 [facility] Comment on above: Performed By: #### H EPXA, PTT #### [address] [address] Scientific Editor: Rafa Prieto MD Lymphocytes/100 WBC (Bld) 24 % Normal 24-43 [facility] Comment on above: Performed By: #### H EPXA, PTT #### [address] [address] Scientific Editor: Rafa Prieto MD MCH (RBC) [Entitic mass] 24.2 pg Low 25.2-33.5 [facility] Comment on above: Performed By: #### H EPXA, PTT #### [address] [address] Scientific Editor: Rafa Prieto MD MCHC (RBC) [Mass/Vol] 28.9 g/dL Normal 28.4-34.8 [facility] Comment on above: Performed By: #### H EPXA, PTT #### [address] [address] Scientific Editor: Rafa Prieto MD MCV (RBC) [Entitic vol] 83.6 fL Normal 82.6-102.9 [facility] Comment on above: Performed By: #### H EPXA, PTT #### [address] [address] Scientific Editor: Rafa Prieto MD Monocytes (Bld) [#/Vol] 1.23 10*3/uL High 0.10-1.20 [facility] Comment on above: Performed By: #### H EPXA, PTT #### [address] [address] Scientific Editor: Rafa Prieto MD Monocytes/100 WBC (Bld) 15 % High 3-12 [facility] Comment on above: Performed By: #### H EPXA, PTT #### [facility] [employer] [address] [place] [address] 13897 Scientific Editor: Rafa Prieto MD Neutrophil (Seg) 57 % Normal 36-65 [facility] Comment on above: Performed By: #### H EPXA, PTT #### [facility] [employer] [address] [place] [address] 29451 Scientific Editor: Rafa Prieto MD NRBC Automated 0.0 per 100 WBC Normal 0.0 [facility] Comment on above: Performed By: #### H EPXA, PTT #### [facility] [employer] [address] [place] [address] 54395 Scientific Editor: Rafa Prieto MD Platelet mean volume (Bld) [Entitic vol] 10.8 fL Normal 8.1-13.5 [facility] Comment on above: Performed By: #### H EPXA, PTT #### [facility] [employer] [address] [place] [address] 38177 Scientific Editor: Rafa Prieto MD Platelets (Bld) [#/Vol] 194 10*3/uL Normal 138-453 [facility] Comment on above: Performed By: #### H EPXA, PTT #### [address] [address] Scientific Editor: Rafa Prieto MD RBC (Bld) [#/Vol] 4.51 10*6/uL Normal 4.21-5.77 [facility] Comment on above: Performed By: #### H EPXA, PTT #### [address] [address] Scientific Editor: Rafa Prieto MD RBC morphology finding Nom (Bld) ANISOCYTOSIS PRESENT Normal [facility] Comment on above: Performed By: #### H EPXA, PTT #### [facility] [employer] [address] [place] [address] 61199 Scientific Editor: Rafa Prieto MD WBC (Bld) [#/Vol] 8.1 10*3/uL Normal 3.5-11.3 [facility] Comment on above: Performed By: #### H EPXA, PTT #### [facility] [employer] [address] [place] [address] 57037 Scientific Editor: Rafa Prieto MD Glucose,Whole Bloodon 2023 Glucose [Mass/Vol] 143 mg/dL High 75-110 [facility] Glucose [Mass/Vol] 107 mg/dL Normal 75-110 [facility] Heparin Anti-Xaon 01-03-2024 Heparin Anti-Xa 0.48 IU/L Normal [facility] Comment on above: Performed By: #### H EPXA, BNP, TROPI ####[address] [address] Lab Director: Rafa Prieto MD Osmolalityon 01-03-2024 Osmolality [Osmolality] 280 mosm/kg Normal 275-295 [facility] Comment on above: Performed By: #### O SMO, REJEC ####[address] [address] Lab Director: Rafa Prieto MD Osmolality, Urineon 01-03-20 24 Osmolality - Urine 293 mOsm/kg Normal 80-1300 [facility] Comment on above: Performed By: #### U RC #### [facility] [employer] [address] [place] [address] 08786 Scientific Editor: Rafa Prieto MD Sodium, Random Uron 01-03-20 24 Na Conc. Urine <20 Normal [facility] Comment on above: Result Comment: No n ormal range established. Performed By: #### U RC #### [facility] [employer] [address] [place] [address] 50579 Scientific Editor: Rafa Prieto MD Specimen Rejectionon 024 Reason for rejection Unable to perform testing: Specimen quantity not sufficient. Normal [facility] Comment on above: Performed By: #### O SMO, REJEC ####[facility] [address] [place] [address] Lab Director: Rafa Prieto MD Source of sample .BLOOD Normal [facility] Comment on above: Performed By: #### O SMO, REJEC ####[facility] [address] [place] [address] Lab Director: Rafa Prieto MD Test ordered BNP TROPI Normal [facility] Comment on above: Performed By: #### O SMO, REJEC ####[facility] [address] [place] [address] lab Director: Rafa Prieto MD Troponinon 01-03-2024 Troponin, High Sens 57 ng/L Critically high 0-22 [facility] Comment on above: Result Comment: High Sensitivity Troponin values cannot be compared with other Troponin methodologies. Performed By: #### U RC #### [facility] [address] [place] [address] Scientific Editor: Rafa Prieto MD XR CHEST PORTABLEon 01-03-20 [...] Samir Infante MD 01/03/24 Final result Normal [facility] Arterial Bld Gas,POCon 01-02 Rao Test Positive Normal [facility] HCO3 (Bld) [Moles/Vol] 30.0 mmol/L High 21.0-28.0 [facility] Oxygen saturation in Blood 93.2 % Low 94.0-98.0 [facility] Patient Temp. 37.7 Normal [facility] pCO2, Arterial 53.1 mm Hg High 35.0-48.0 [facility] pCO2, Temp Adjust 54.7 mm Hg Normal [facility] [place] pH, Arterial 7.361 Normal 7.350-7.450 [facility] pH, Temp Adjust 7.350 Normal [facility] pO2, Arterial 71.8 mm Hg Low 83.0-108.0 [facility] pO2, Temp Adjust 75.2 mm Hg Normal [facility] Positive Base Excess (calc) 3.3 mmol/L High 0.0-3.0 [facility] Site Drawn Left Radial Artery Normal [facility] Basic Metab w/rfx MGon 01-02 Anion gap [Moles/Vol] 9 mmol/L Normal 9-17 [facility] Comment on above: Performed By: #### H EPXA, PTT #### [employer] [address] [place] [address] 75291 Scientific Editor: Rafa Prieto MD Calcium [Mass/Vol] 8.0 mg/dL Low 8.6-10.4 [facility] Comment on above: Performed By: #### H EPXA, PTT #### [employer] [facility] [place] [address] Scientific Editor: Rafa Prieto MD Chloride [Moles/Vol] 100 mmol/L Normal 98-107 [facility] Comment on above: Performed By: #### H EPXA, PTT #### [employer] [address] [place] [address] Scientific Editor: Rafa Prieto MD CO2 [Moles/Vol] 26 mmol/L Normal 20-31 [facility] Comment on above: Performed By: #### H EPXA, PTT #### [employer] [address] [place] [address] 23764 Scientific Editor: Rafa Prieto MD Creatinine [Mass/Vol] 0.7 mg/dL Normal 0.7-1.2 [facility] Comment on above: Performed By: #### H EPXA, PTT #### [employer] [address] [place] [address] 72461 Scientific Editor: Rafa Prieto MD GFR/1.73 sq M.predicted among non-blacks MDRD (S/P/Bld) [Vol rate/Area] mL/min/{1.73_m2} Normal >60 [facility] Comment on above: Result Comment: [...] Performed By: #### H EPXA, PTT #### [facility] [address] [place] [address] 20481 Scientific Editor: Rafa Prieto MD Glucose [Mass/Vol] 110 mg/dL High 70-99 [facility] Comment on above: Performed By: #### H EPXA, PTT #### [employer] [address] [place] [address] 35922 Scientific Editor: Rafa Prieto MD Potassium [Moles/Vol] 3.9 mmol/L Normal 3.7-5.3 [facility] Comment on above: Performed By: #### H EPXA, PTT #### [facility] [address] [place] [address] 90747 Scientific Editor: Rafa Prieto MD Sodium [Moles/Vol] 135 mmol/L Normal 135-144 [facility] Comment on above: Performed By: #### H EPXA, PTT #### [employer] [address] [place] [address] 62768 Scientific Editor: Rafa Prieto MD Urea nitrogen [Mass/Vol] 15 mg/dL Normal 6-20 [facility] Comment on above: Performed By: #### H EPXA, PTT #### [facility] [employer] [address] [place] [address] 75957 Scientific Editor: Rafa Prieto MD CBC with Diffon 01-02-2024 Abs. Basophil 0.00 k/uL Normal 0.0-0.2 [facility] Comment on above: Performed By: #### H EPXA, PTT #### [facility] [employer] [address] [place] [address] 63895 Scientific Editor: Rafa Prieto MD Abs.Imm.Granulocyte 0.00 k/uL Normal 0.00-0.30 [facility] Comment on above: Performed By: #### H EPXA, PTT #### [facility] [employer] [address] [place] [address] 19563 Scientific Editor: Rafa Prieto MD Abs.Neutrophil (Seg) 4.48 k/uL Normal 1.8-7.7 [facility] Comment on above: Performed By: #### H EPXA, PTT #### [facility] [employer] [address] [place] [address] 67879 Scientific Editor: Rafa Prieto MD Basophils/100 WBC (Bld) 0 % Normal 0-2 [facility] Comment on above: Performed By: #### H EPXA, PTT #### [facility] [employer] [address] [place] [address] 17771 Scientific Editor: Rafa Prieto MD Eosinophils (Bld) [#/Vol] 0.08 10*3/uL Normal 0.0-0.4 [facility] Comment on above: Performed By: #### H EPXA, PTT #### [facility] [employer] [address] [place] [address]226 Scientific Editor: Rafa Prieto MD Eosinophils/100 WBC (Bld) 1 % Normal 1-4 [facility] Comment on above: Performed By: #### H EPXA, PTT #### [address] [address] Scientific Editor: Rafa Prieto MD Immature granulocytes/100 WBC (Bld) 0 % Normal 0 [facility] Comment on above: Performed By: #### H EPXA, PTT #### [facility] [employer] [address] [place] [address] 41633 Scientific Editor: Rafa Prieto MD Lymphocytes (Bld) [#/Vol] 1.76 10*3/uL Normal 1.0-4.8 [facility] Comment on above: Performed By: #### H EPXA, PTT #### [address] [address] Scientific Editor: Rafa Prieto MD Lymphocytes/100 WBC (Bld) 22 % Low 24-44 [facility] Comment on above: Performed By: #### H EPXA, PTT #### [address] [address] Scientific Editor: Rafa Prieto MD Monocytes (Bld) [#/Vol] 1.68 10*3/uL High 0.1-0.8 [facility] Comment on above: Performed By: #### H EPXA, PTT #### [address] [address] Scientific Editor: Rafa Prieto MD Monocytes/100 WBC (Bld) 21 % High 1-7 [facility] Comment on above: Performed By: #### H EPXA, PTT #### [facility] [employer] [address] [place] [address] 38842 Scientific Editor: Rafa Prieto MD Morphology Rancho (Bld) [Interp] ANISOCYTOSIS PRESENT Normal [facility] Comment on above: Performed By: #### H EPXA, PTT #### [address] [address] Scientific Editor: Rafa Prieto MD Neutrophil (Seg) 56 % Normal 36-66 [facility] Comment on above: Performed By: #### H EPXA, PTT #### [address] [address] Scientific Editor: Rafa Prieto MD Erythrocyte distribution width (RBC) [Ratio] 15.9 % High 11.8-14.4 [facility] Comment on above: Performed By: #### H EPXA, PTT #### [address] [address] Scientific Editor: Rafa Prieto MD Hematocrit (Bld) [Volume fraction] 40.7 % Normal 40.7-50.3 [facility] Comment on above: Performed By: #### H EPXA, PTT #### [address] [address] Scientific Editor: Rafa Prieto MD Hemoglobin (Bld) [Mass/Vol] 11.6 g/dL Low 13.0-17.0 [facility] Comment on above: Performed By: #### H EPXA, PTT #### [address] [address] Scientific Editor: Rafa Prieto MD MCH (RBC) [Entitic mass] 24.0 pg Low 25.2-33.5 [facility] Comment on above: Performed By: #### H EPXA, PTT #### [address] [address] Scientific Editor: Rafa Prieto MD MCHC (RBC) [Mass/Vol] 28.5 g/dL Normal 28.4-34.8 [facility] Comment on above: Performed By: #### H EPXA, PTT #### [facility] [employer] [address] [place] [address] Scientific Editor: Rafa Prieto MD MCV (RBC) [Entitic vol] 84.1 fL Normal 82.6-102.9 [facility] Comment on above: Performed By: #### H EPXA, PTT #### [address] [address] Scientific Editor: Rafa Prieto MD NRBC Automated 0.0 per 100 WBC Normal 0.0 [facility] Comment on above: Performed By: #### H EPXA, PTT #### [address] [address] Scientific Editor: Rafa Prieto MD Platelet mean volume (Bld) [Entitic vol] 11.1 fL Normal 8.1-13.5 [facility] Comment on above: Performed By: #### H EPXA, PTT #### [address] [address] Scientific Editor: Rafa Prieto MD Platelets (Bld) [#/Vol] 212 10*3/uL Normal 138-453 [facility] Comment on above: Performed By: #### H EPXA, PTT #### [address] [address] Scientific Editor: Rafa Prieto MD RBC (Bld) [#/Vol] 4.84 10*6/uL Normal 4.21-5.77 [facility] Comment on above: Performed By: #### H EPXA, PTT #### [address] [address] Scientific Editor: Rafa Prieto MD WBC (Bld) [#/Vol] 8.0 10*3/uL Normal 3.5-11.3 [facility] Comment on above: Performed By: #### H EPXA, PTT #### [address] [address] Scientific Editor: Rafa Prieto MD Glucose (POC)on 01-02-2024 Glucose [Mass/Vol] 116 mg/dL High 74-100 [facility] Glucose,Whole Bloodon 2023 Glucose [Mass/Vol] 165 mg/dL High 75-110 [facility] Glucose [Mass/Vol] 209 mg/dL High 75-110 [facility] Glucose [Mass/Vol] 115 mg/dL High 75-110 [facility] Glucose [Mass/Vol] 78 mg/dL Normal 75-110 [facility] Heparin Anti-Xaon 01-02-2024 Heparin Anti-Xa 0.55 IU/L Normal [facility] Comment on above: Performed By: #### H EPXA, PTT #### [employer] [address] [place] [address] [phone] Scientific Editor: Rafa Prieto MD Heparin Anti-Xa 0.63 IU/L Normal [facility] Comment on above: Performed By: #### H EPXA ####[employer] [place] [address] Lab Director: Rafa Prieto MD APTTon 01-01-2024 aPTT Coag (Bld) [Time] 123.5 s Critically high 23.0-36.5 [facility] Comment on above: Result Comment: IV Heparin Therapy Range: 66.0-92.0 sec Performed By: #### H EPXA, PTT #### [employer] [address] [place] [address] Scientific Editor: Rafa Prieto MD aPTT Coag (Bld) [Time] 82.0 s High 23.0-36.5 [facility] Comment on above: Result Comment: IV Heparin Therapy Range: 66.0-92.0 sec Performed By: #### H EPXA, PTT #### [employer] [address] [place] [phone] Scientific Editor: Rafa Prieto MD aPTT Coag (Bld) [Time] 122.3 s Critically high 23.0-36.5 [facility] Comment on above: Result Comment: IV Heparin Therapy Range: 66.0-92.0 sec Performed By: #### T ROPI #### [facility] [address] [place], [place] [phone] Scientific Editor: Rafa Prieto MD Basic Metab w/rfx MGon 01-01 Creatinine [Mass/Vol] 0.8 mg/dL Normal 0.7-1.2 [facility] Comment on above: Result Comment: ICTE MANSOOR SPECIMEN Performed By: #### B MPX, CDP, TROPI, MG ####[facility] [place] [address] Lab Director: Rafa Prieto MD GFR/1.73 sq M.predicted among non-blacks MDRD (S/P/Bld) [Vol rate/Area] mL/min/{1.73_m2} Normal >60 [facility] Comment on above: Result Comment: [...] By: #### B MPX, CDP, TROPI, MG ####[employer] [place] [address] Lab Director: Rafa Prieto MD Potassium [Moles/Vol] 3.5 mmol/L Low 3.7-5.3 [facility] Comment on above: Performed By: #### B MPX, CDP, TROPI, MG ####[employer] [place], [place] [id number] Lab Director: Rafa Prieto MD Anion gap [Moles/Vol] 13 mmol/L Normal 9-17 [facility] Comment on above: Performed By: #### B MPX, CDP, TROPI, MG ####[facility] [address] [place] [address] Lab Director: Rafa Prieto MD Calcium [Mass/Vol] 8.3 mg/dL Low 8.6-10.4 [facility] Comment on above: Performed By: #### B MPX, CDP, TROPI, MG ####[facility] [address] [place], [place] [phone] Director: Rafa Prieto MD Chloride [Moles/Vol] 99 mmol/L Normal 98-107 [facility] Comment on above: Performed By: #### B MPX, CDP, TROPI, MG ####[facility] [address] [place], [place] [phone] Director: Rafa Prieto MD CO2 [Moles/Vol] 25 mmol/L Normal 20-31 [facility] Comment on above: Performed By: #### B MPX, CDP, TROPI, MG ####[facility] [address] [place], [place] [address])[phone] Director: Rafa Prieto MD Glucose [Mass/Vol] 89 mg/dL Normal 70-99 [facility] Comment on above: Performed By: #### B MPX, CDP, TROPI, MG ####[facility] [address] [place] [address] Lab Director: Rafa Prieto MD Sodium [Moles/Vol] 137 mmol/L Normal 135-144 [facility] Comment on above: Performed By: #### B MPX, CDP, TROPI, MG ####[facility] [address] [place], [place] [phone] Director: Rafa Prieto MD Urea nitrogen [Mass/Vol] 20 mg/dL Normal 6-20 [facility] Comment on above: Performed By: #### B MPX, CDP, TROPI, MG ####[facility] [address] [place], [place] [id number] Lab Director: Rafa Prieto MD Basic Metabolic Profon 01-01 Creatinine [Mass/Vol] 0.7 mg/dL Normal 0.7-1.2 [facility] Comment on above: Result Comment: ICTE MANSOOR SPECIMEN Performed By: #### T JOSEY #### [facility] [employer] [address] [place] [phone] Scientific Editor: Rafa Prieto MD GFR/1.73 sq M.predicted among non-blacks MDRD (S/P/Bld) [Vol rate/Area] mL/min/{1.73_m2} Normal >60 [facility] Comment on above: Result Comment: [...] secretion. Performed By: #### T JOSEY #### [address] [address] Scientific Editor: Rafa Prieto MD Anion gap [Moles/Vol] 12 mmol/L Normal 9-17 [facility] Comment on above: Performed By: #### T JOSEY #### [facility] [employer] [address] [place] [address] Scientific Editor: Rafa Prieto MD Calcium [Mass/Vol] 8.3 mg/dL Low 8.6-10.4 [facility] Comment on above: Performed By: #### T JOSEY #### [facility] [employer] [address] [place] [address] Scientific Editor: Rafa Prieto MD Chloride [Moles/Vol] 98 mmol/L Normal 98-107 [facility] Comment on above: Performed By: #### T ROPI #### [facility] [place] [address] Scientific Editor: Rafa Prieto MD CO2 [Moles/Vol] 25 mmol/L Normal 20-31 [facility] Comment on above: Performed By: #### T ROPI #### [facility] [address] [place] [address] Scientific Editor: Rafa Prieto MD Glucose [Mass/Vol] 125 mg/dL High 70-99 [facility] Comment on above: Performed By: #### T ROPI #### [facility] [address] [place] [address] Scientific Editor: Rafa Prieto MD Potassium [Moles/Vol] 3.6 mmol/L Low 3.7-5.3 [facility] Comment on above: Performed By: #### T ROPI #### [facility] [employer] [address] [place] [address] Scientific Editor: Rafa Prieto MD Sodium [Moles/Vol] 135 mmol/L Normal 135-144 [facility] Comment on above: Performed By: #### T ROPI #### [facility] [address] [place] [phone] Scientific Editor: Rafa Prieto MD Urea nitrogen [Mass/Vol] 22 mg/dL High 6-20 [facility] Comment on above: Performed By: #### T ROPI #### [facility] [address] [place] [address] Scientific Editor: Rafa Prieto MD Brain Natri. Peptideon 01-01 Natriuretic peptide B (Bld) [Mass/Vol] 2437 pg/mL High <300 [facility] Comment on above: Result Comment: An age-independent cutoff point of 300 pg/ml has a 98% negative predictive value excluding acute heart failure. Performed By: #### T ROPI #### [facility] [address] [place] [address] Scientific Editor: Rafa Prieto MD CBC with Diffon 01-01-2024 Abs. Basophil 0.00 k/uL Normal 0.00-0.20 [facility] Comment on above: Performed By: #### B MPX, CDP, TROPI, MG ####[facility] [address] [place], [place] [address])[phone] Director: Rafa Prieto MD Abs.Imm.Granulocyte 0.00 k/uL Normal 0.00-0.30 [facility] Comment on above: Performed By: #### B MPX, CDP, TROPI, MG ####[facility] [address] [place], [place] [address])[phone] Director: Rafa Prieto MD Abs.Neutrophil (Seg) 4.00 k/uL Normal 1.50-8.10 [facility] Comment on above: Performed By: #### B MPX, CDP, TROPI, MG ####[facility] [address] [place], [place] [address])[phone] Director: Rafa Prieto MD Basophils/100 WBC (Bld) 0 % Normal 0-2 [facility] Comment on above: Performed By: #### B MPX, CDP, TROPI, MG ####[facility] [address] [place] [address])[phone] Director: Rafa Prieto MD Eosinophils (Bld) [#/Vol] 0.00 10*3/uL Normal 0.00-0.44 [facility] Comment on above: Performed By: #### B MPX, CDP, TROPI, MG ####[facility] [address] [place], [place] [address])[phone] Director: Rafa Prieto MD Eosinophils/100 WBC (Bld) 0 % Low 1-4 [facility] Comment on above: Performed By: #### B MPX, CDP, TROPI, MG ####[facility] [address] [place], [place] [phone])[phone] Director: Rafa Prieto MD Immature granulocytes/100 WBC (Bld) 0 % Normal 0 [facility] Comment on above: Performed By: #### B MPX, CDP, TROPI, MG ####[facility] [address] [place], [place] [id number])[phone] Director: Rafa Prieto MD Lymphocytes (Bld) [#/Vol] 1.70 10*3/uL Normal 1.10-3.70 [facility] Comment on above: Performed By: #### B MPX, CDP, TROPI, MG ####[facility] [address] [place] [address] Lab Director: Rafa Prieto MD Lymphocytes/100 WBC (Bld) 23 % Low 24-43 [facility] Comment on above: Performed By: #### B MPX, CDP, TROPI, MG ####[facility] [address] [place], [place] [phone])[phone] Director: Rafa Prieto MD Monocytes (Bld) [#/Vol] 1.70 10*3/uL High 0.10-1.20 [facility] Comment on above: Performed By: #### B MPX, CDP, TROPI, MG ####[facility] [address] [place] [address] Lab Director: Rafa Prieto MD Monocytes/100 WBC (Bld) 23 % High 3-12 [facility] Comment on above: Performed By: #### B MPX, CDP, TROPI, MG ####[facility] [address] [place] [address] Lab Director: Rafa Prieto MD Morphology Rancho (Bld) [Interp] ANISOCYTOSIS PRESENT Normal [facility] Comment on above: Result Comment: MICR OCYTOSIS PRESENT Performed By: #### B MPX, CDP, TROPI, MG ####[facility] [address] [place] [address] Lab Director: Rafa Prieto MD Neutrophil (Seg) 54 % Normal 36-65 [facility] Comment on above: Performed By: #### B MPX, CDP, TROPI, MG ####[facility] [address]ti[address] [place] [address] Lab Director: Rafa Prieto MD Erythrocyte distribution width (RBC) [Ratio] 15.8 % High 11.8-14.4 [facility] Comment on above: Performed By: #### B MPX, CDP, TROPI, MG ####[facility] [address] [place], [place] [address])[phone] Director: Rafa Prieto MD Hematocrit (Bld) [Volume fraction] 40.9 % Normal 40.7-50.3 [facility] Comment on above: Performed By: #### B MPX, CDP, TROPI, MG ####[facility] [address] [place], [place] [address])[phone] Director: Rafa Prieto MD Hemoglobin (Bld) [Mass/Vol] 12.3 g/dL Low 13.0-17.0 [facility] Comment on above: Performed By: #### B MPX, CDP, TROPI, MG ####[facility] [address] [place], [place] [phone])[phone] Director: Rafa Prieto MD MCH (RBC) [Entitic mass] 24.2 pg Low 25.2-33.5 [facility] Comment on above: Performed By: #### B MPX, CDP, TROPI, MG ####[facility] [address] [place], [place] [phone])[phone] Director: Rafa Prieto MD MCHC (RBC) [Mass/Vol] 30.1 g/dL Normal 28.4-34.8 [facility] Comment on above: Performed By: #### B MPX, CDP, TROPI, MG ####[facility] [address] [place], [place] [phone])[phone] Director: Rafa Prieto MD MCV (RBC) [Entitic vol] 80.5 fL Low 82.6-102.9 [facility] Comment on above: Performed By: #### B MPX, CDP, TROPI, MG ####[facility] [address] [place], [place] [phone] Director: Rafa Prieto MD NRBC Automated 0.0 per 100 WBC Normal 0.0 [facility] Comment on above: Performed By: #### B MPX, CDP, TROPI, MG ####[facility] [address] [place], [place] [phone])[phone] Director: Rafa Prieto MD Platelet mean volume (Bld) [Entitic vol] 11.0 fL Normal 8.1-13.5 [facility] Comment on above: Performed By: #### B MPX, CDP, TROPI, MG ####[facility] [address] [place], [place] [phone])[phone] Director: Rafa Prieto MD Platelets (Bld) [#/Vol] 246 10*3/uL Normal 138-453 [facility] Comment on above: Performed By: #### B MPX, CDP, TROPI, MG ####[facility] [address] [place], [place] [phone])[phone] Director: Rafa Prieto MD RBC (Bld) [#/Vol] 5.08 10*6/uL Normal 4.21-5.77 [facility] Comment on above: Performed By: #### B MPX, CDP, TROPI, MG ####[facility] [address] [place], [place] [phone] Director: Rafa Prieto MD WBC (Bld) [#/Vol] 7.4 10*3/uL Normal 3.5-11.3 [facility] Comment on above: Performed By: #### B MPX, CDP, TROPI, MG ####[address] [place] [address] Lab Director: Rafa Prieto MD Abs. Basophil 0.00 k/uL Normal 0.0-0.2 [facility] Comment on above: Performed By: #### T ROPI #### [place] [address] Scientific Editor: Rafa Prieto MD Abs.Imm.Granulocyte 0.00 k/uL Normal 0.00-0.30 [facility] Comment on above: Performed By: #### T ROPI #### [place] [address] Scientific Editor: Rafa Prieto MD Abs.Neutrophil (Seg) 5.76 k/uL Normal 1.8-7.7 [facility] Comment on above: Performed By: #### T ROPI #### [place] [address] Scientific Editor: Rafa Prieto MD Basophils/100 WBC (Bld) 0 % Normal 0-2 [facility] Comment on above: Performed By: #### T ROPI #### [place] [address] Scientific Editor: Rafa Prieto MD Eosinophils (Bld) [#/Vol] 0.00 10*3/uL Normal 0.0-0.4 [facility] Comment on above: Performed By: #### T ROPI #### [facility] [employer] [address] [place] [address] Scientific Editor: Rafa Prieto MD Eosinophils/100 WBC (Bld) 0 % Low 1-4 [facility] Comment on above: Performed By: #### T ROPI #### [address] [address] Scientific Editor: Rafa Prieto MD Immature granulocytes/100 WBC (Bld) 0 % Normal 0 [facility] Comment on above: Performed By: #### T ROPI #### [address] [address] Scientific Editor: Rafa Prieto MD Lymphocytes (Bld) [#/Vol] 1.28 10*3/uL Normal 1.0-4.8 [facility] Comment on above: Performed By: #### T ROPI #### [address] [address] Scientific Editor: Rafa Prieto MD Lymphocytes/100 WBC (Bld) 16 % Low 24-44 [facility] Comment on above: Performed By: #### T ROPI #### [address] [address] Scientific Editor: Rafa Prieto MD Monocytes (Bld) [#/Vol] 0.96 10*3/uL High 0.1-0.8 [facility] Comment on above: Performed By: #### T ROPI #### [address] [address] Scientific Editor: Rafa Prieto MD Monocytes/100 WBC (Bld) 12 % High 1-7 [facility] Comment on above: Performed By: #### T ROPI #### [address] [address] Scientific Editor: Rafa Prieto MD Morphology Rancho (Bld) [Interp] ANISOCYTOSIS PRESENT Normal [facility] Comment on above: Result Comment: MICR OCYTOSIS PRESENT Performed By: #### T ROPI #### [address] [address] Scientific Editor: Rafa Prieto MD Neutrophil (Seg) 72 % High 36-66 [facility] Comment on above: Performed By: #### T ROPI #### [address] [address] Scientific Editor: Rafa Prieto MD Nucleated RBC'S 1 per 100 WBC High 0 [facility] Comment on above: Performed By: #### T ROPI #### [address] [address] Scientific Editor: Rafa Prieto MD Erythrocyte distribution width (RBC) [Ratio] 15.9 % High 11.8-14.4 [facility] Comment on above: Performed By: #### T ROPI #### [facility] [employer] [address] [place] [address] Scientific Editor: Rafa Prieto MD Hematocrit (Bld) [Volume fraction] 41.5 % Normal 40.7-50.3 [facility] Comment on above: Performed By: #### T ROPI #### [address] [address] Scientific Editor: Rafa Prieto MD Hemoglobin (Bld) [Mass/Vol] 12.7 g/dL Low 13.0-17.0 [facility] Comment on above: Performed By: #### T ROPI #### [place] [address] Scientific Editor: Rafa Prieto MD MCH (RBC) [Entitic mass] 24.3 pg Low 25.2-33.5 [facility] Comment on above: Performed By: #### T ROPI #### [facility] [employer] [address] [place] [address] Scientific Editor: Rafa Prieto MD MCHC (RBC) [Mass/Vol] 30.6 g/dL Normal 28.4-34.8 [facility] Comment on above: Performed By: #### T ROPI #### [address] [address] Scientific Editor: Rafa Prieto MD MCV (RBC) [Entitic vol] 79.5 fL Low 82.6-102.9 [facility] Comment on above: Performed By: #### T ROPI #### [address] [address] Scientific Editor: Rafa Prieto MD NRBC Automated 0.3 per 100 WBC High 0.0 [facility] Comment on above: Performed By: #### T ROPI #### [address] [address] Scientific Editor: Rafa Prieto MD Platelet mean volume (Bld) [Entitic vol] 10.9 fL Normal 8.1-13.5 [facility] Comment on above: Performed By: #### T ROPI #### [address] [address] Scientific Editor: Rafa Prieto MD Platelets (Bld) [#/Vol] 265 10*3/uL Normal 138-453 [facility] Comment on above: Performed By: #### T ROPI #### [address] [address] Scientific Editor: Rafa Prieto MD RBC (Bld) [#/Vol] 5.22 10*6/uL Normal 4.21-5.77 [facility] Comment on above: Performed By: #### T ROPI #### [address] [address] Scientific Editor: Rafa Prieto MD WBC (Bld) [#/Vol] 8.0 10*3/uL Normal 3.5-11.3 [facility] Comment on above: Performed By: #### T ROPI #### [address] [phone] Scientific Editor: Rafa Prieto MD Glucose,Whole Bloodon 2023 Glucose [Mass/Vol] 72 mg/dL Low 75-110 [facility] Glucose [Mass/Vol] 60 mg/dL Low 75-110 [facility] Glucose [Mass/Vol] 44 mg/dL Low 75-110 [facility] Comment on above: Result Comment: Alesia icaonofre Noted Glucose [Mass/Vol] 91 mg/dL Normal 75-110 [facility] Glucose [Mass/Vol] 66 mg/dL Low 75-110 [facility] Glucose [Mass/Vol] 42 mg/dL Low -110 [facility] Comment on above: Result Comment: Alesia icaonofre Noted Glucose [Mass/Vol] 124 mg/dL High -110 [facility] Heparin Anti-Xaon 01-01-2024 Heparin Anti-Xa 0.97 IU/L Normal [facility] Comment on above: Performed By: #### H EPXA #### [facility] [address] [place] [address] Scientific Editor: Rafa Prieto MD Heparin Anti-Xa 0.40 IU/L [facility] Comment on above: Performed By: #### H EPXA, PTT #### [facility] [address] [place] [address] Scientific Editor: Rafa Prieto MD Heparin Anti-Xa 0.32 IU/L Normal [facility] Comment on above: Performed By: #### H EPXA, PTT #### [facility] [address] [place] [address] Scientific Editor: Rafa Prieto MD Heparin Anti-Xa 0.29 IU/L [facility] Comment on above: Performed By: #### T ROPI #### [facility] [address] [place] [address] Scientific Editor: Rafa Prieto MD MRSA, DNA, Nasalon MRSA, DNA, Nasal Negative Normal NEG [facility] Comment on above: Result Comment: NEGA TIVE: MRSA DNA not detected by nucleic acid amplification. Results should be used as an adjunct to nosocomial control efforts to identify patients needing enhanced precautions. The test is not intended to identify patients with staphylococcal infections. Results should not be used to guide or monitor treatment for MRSA infections. Performed By: #### M RSANO ####[facility] [address] [place] [address] [phone] Director: Rafa Prieto MD Specimen Description .NASAL SWAB Normal [facility] Comment on above: Performed By: #### M RSANO ####[facility] [address] [place] [address] [phone] Director: Rafa Prieto MD Magnesiumon 01-01-2024 Magnesium [Mass/Vol] 1.7 mg/dL Normal 1.6-2.6 [facility] Comment on above: Performed By: #### B MPX, CDP, TROPI, MG ####[facility] [address] [place] [address] Lab Director: Rafa Prieto MD Troponinon 01-01-2024 Troponin, High Sens 103 ng/L Critically high 0-22 [facility] Comment on above: Result Comment: High Sensitivity Troponin values cannot be compared with other Troponin methodologies. Previous Alert Value Reported Performed By: #### B MPX, CDP, TROPI, MG ####[facility] [address] [place] [address] [phone] Director: Rafa Prieto MD Troponin, High Sens 107 ng/L Critically high 0-22 [facility] Comment on above: Result Comment: High Sensitivity Troponin values cannot be compared with other Troponin methodologies. Previous Alert Value Reported Performed By: #### T ROPI ####[facility] [address] [place] [address] [phone] Director: Rafa Prieto MD Troponin, High Sens 107 ng/L Critically high 0-22 [facility] Comment on above: Result Comment: High Sensitivity Troponin values cannot be compared with other Troponin methodologies. Previous Alert Value Reported Performed By: #### T ROPI #### [facility] [address] [place] [address] Scientific Editor: Rafa Prieto MD Troponin, High Sens 104 ng/L Critically high 0-22 [facility] Comment on above: Result Comment: High Sensitivity Troponin values cannot be compared with other Troponin methodologies. Performed By: #### T ROPI #### [facility] [address] [place] [address] Scientific Editor: Rafa Prieto MD Type + Screenon 01-01-2024 Type + Screen Sample Expiration 01/04/2024,2359 Arm Band Number [id number] ABO/Rh(D) A POSITIVE Antibody Screen NEGATIVE Normal [facility] Comment on above: Performed By: #### T YS ####[facility] [address] [place] [address] Lab Director: Rafa Prieto MD Urinalysis, Routineon 2023 Bilirubin, SemiQt,Ur Negative Normal NEG [facility] Comment on above: Performed By: #### H EPXA, PTT #### [facility] [address] [place] [address] Scientific Editor: Rafa Prieto MD Blood, Urine LARGE Abnormal NEG [facility] Comment on above: Performed By: #### H EPXA, PTT #### [facility] [address] [place] [address] Scientific Editor: Rafa Prieto MD Clarity (U) Clear Normal CLEAR [facility] Comment on above: Performed By: #### H EPXA, PTT #### [employer] [address] [place] [address] Scientific Editor: Rafa Prieto MD Color (U) Dark Yellow Abnormal YEL [facility] Comment on above: Performed By: #### H EPXA, PTT #### [facility] [address] [place] [address] Scientific Editor: Rafa Prieto MD Glucose Ql (U) Negative Normal NEG [facility] Comment on above: Performed By: #### H EPXA, PTT #### [facility] [employer] [address] [place] [address] Scientific Editor: Rafa Prieto MD Ketones Ql (U) Negative Normal NEG [facility] Comment on above: Performed By: #### H EPXA, PTT #### [facility] [employer] [address] [place] [address] Scientific Editor: Rafa Prieto MD Leukocyte esterase Test strip Ql (U) MODERATE Abnormal NEG [facility] Comment on above: Performed By: #### H EPXA, PTT #### [facility] [employer] [address] [place] [address] Scientific Editor: Rafa Prieto MD Nitrite,Ur Negative Normal NEG [facility] Comment on above: Performed By: #### H EPXA, PTT #### [facility] [employer] [address] [place] [address] Scientific Editor: Rafa Prieto MD PH,Ur 5.5 Normal 5.0-8.0 [facility] Comment on above: Performed By: #### H EPXA, PTT #### [facility] [address] [place] [address] Scientific Editor: Rafa Prieto MD Protein Ql (U) TRACE Abnormal NEG [facility] Comment on above: Performed By: #### H EPXA, PTT #### [facility] [address] [place] [address] Scientific Editor: Rafa Prieto MD Spec. [place],Ur 1.024 Normal 1.005-1.030 [facility] Comment on above: Performed By: #### H EPXA, PTT #### [facility] [employer] [address] [place] [address] Scientific Editor: Rafa Prieto MD Urobilinogen,Ur ELEVATED Normal 0.0-1.0 [facility] Comment on above: Performed By: #### H EPXA, PTT #### [facility] [employer] [address] [place] [address] Scientific Editor: Rafa Prieto MD Urinalysis,Microon 4 Epithelial cells LM Ql (Urine sed) 5 TO 10 Normal 0-5 [facility] Comment on above: Performed By: #### H EPXA, PTT #### [facility] [employer] [address] [place] [address] Scientific Editor: Rafa Prieto MD Urine RBC's TOO NUMEROUS TO COUNT Normal 0-2 [facility] Comment on above: Performed By: #### H EPXA, PTT #### [facility] [employer] [address] [place] [address] Scientific Editor: Rafa Prieto MD Urine WBC's 10 TO 20 Normal 05 [facility] Comment on above: Performed By: #### H EPXA, PTT #### [facility] [employer] [address] [place] [address] Scientific Editor: Rafa Prieto MD DENNY Antinuclear Antibodieson 08-09-2023 Antinuclear Abs, IFA Negative Normal . [facility] Comment on above: Result Comment: Nega tive <1:80 Borderline 1:80 Positive >1:80 ICAP nomenclature: AC-0 For more information about Hep-2 cell patterns use ANApatterns.org, the official website for the International Consensus on Antinuclear Antibody (DENNY) Patterns (ICAP). Performed at: [facility] [address] [id number] Scientific Editor: Lester Nunez PhD, Phone: [phone] Performed By: #### A NA, [id number] #### [facility] , #### T4F, CRP, CK, CMP, ESR, CBC, TSH3 #### [facility] [address] [place] [address] C-Reactive Proteinon 023 C-Reactive Protein 0.5 mg/dL Normal 0.0-0.5 [facility] Comment on above: Performed By: #### A NA, [id number] #### [facility] , #### T4F, CRP, CK, CMP, ESR, CBC, TSH3 #### [address] Complete Blood Count Auto Di ffon 08-09-2023 Basophils (Bld) [#/Vol] 0.0 10*3/uL Normal 0.0-0.2 [facility] Comment on above: Performed By: #### A NA, [id number] #### [facility] , #### T4F, CRP, CK, CMP, ESR, CBC, TSH3 #### [place] [address] [place] Basophils/100 WBC (Bld) 0.6 % Normal . [facility] Comment on above: Performed By: #### A NA, [id number] #### [facility] , #### T4F, CRP, CK, CMP, ESR, CBC, TSH3 #### [place] [address] [place] Eosinophils (Bld) [#/Vol] 0.1 10*3/uL Normal 0.0-0.45 [facility] Comment on above: Performed By: #### A NA, [id number] #### [facility] , #### T4F, CRP, CK, CMP, ESR, CBC, TSH3 #### [place] [address] [place] Eosinophils/100 WBC (Bld) 1.4 % Normal . [facility] Comment on above: Performed By: #### A NA, [id number] #### [facility] , #### T4F, CRP, CK, CMP, ESR, CBC, TSH3 #### [address] Erythrocyte distribution width (RBC) [Ratio] 13.1 % Normal 12.0-14.8 [facility] Comment on above: Performed By: #### A NA, [id number] #### [facility] , #### T4F, CRP, CK, CMP, ESR, CBC, TSH3 #### [address] Hematocrit (Bld) [Volume fraction] 43.8 % Normal 38.8-50.0 [facility] Comment on above: Performed By: #### A NA, [id number] #### [facility] , #### T4F, CRP, CK, CMP, ESR, CBC, TSH3 #### [address] Hemoglobin (Bld) [Mass/Vol] 14.4 g/dL Normal 13.0-17.0 [facility] Comment on above: Performed By: #### A NA, [id number] #### [facility] , #### T4F, CRP, CK, CMP, ESR, CBC, TSH3 #### [address] Lymphocytes (Bld) [#/Vol] 1.7 10*3/uL Normal 1.00-4.8 [facility] Comment on above: Performed By: #### A NA, [id number] #### [facility] , #### T4F, CRP, CK, CMP, ESR, CBC, TSH3 #### [address] Lymphocytes/100 WBC (Bld) 24.1 % Normal . [facility] Comment on above: Performed By: #### A NA, [id number] #### [facility] , #### T4F, CRP, CK, CMP, ESR, CBC, TSH3 #### [address] MCH (RBC) [Entitic mass] 27.6 pg Normal 27.5-35.2 [facility] Comment on above: Performed By: #### A NA, [id number] #### [facility] , #### T4F, CRP, CK, CMP, ESR, CBC, TSH3 #### [address] MCV (RBC) [Entitic vol] 84.1 fL Normal 83.5-101 [facility] Comment on above: Performed By: #### A NA, [id number] #### [facility] , #### T4F, CRP, CK, CMP, ESR, CBC, TSH3 #### [address] Mean Corpuscular HGB Conc 32.8 g/dL Normal 32.5-35.6 [facility] Comment on above: Performed By: #### A NA, [id number] #### [facility] , #### T4F, CRP, CK, CMP, ESR, CBC, TSH3 #### [address] Monocytes (Bld) [#/Vol] 0.4 10*3/uL Normal 0.0-0.8 [facility] Comment on above: Performed By: #### A NA, [id number] #### [facility] , #### T4F, CRP, CK, CMP, ESR, CBC, TSH3 #### [address] Monocytes/100 WBC (Bld) 5.9 % Normal . [facility] Comment on above: Performed By: #### A NA, [id number] #### [facility] , #### T4F, CRP, CK, CMP, ESR, CBC, TSH3 #### [place] [address] Neutrophils (Bld) [#/Vol] 4.9 10*3/uL Normal 1.8-7.7 [facility] Comment on above: Performed By: #### A NA, [id number] #### [facility] , #### T4F, CRP, CK, CMP, ESR, CBC, TSH3 #### [address] Neutrophils/100 WBC (Bld) 68.0 % Normal . [facility] [facility] Comment on above: Performed By: #### A NA, [id number] #### [facility] , #### T4F, CRP, CK, CMP, ESR, CBC, TSH3 #### [address] NRBC% 0.2 /100{WBC} Normal 0-0.5 [facility] Comment on above: Performed By: #### A NA, [id number] #### [facility] , #### T4F, CRP, CK, CMP, ESR, CBC, TSH3 #### [address] Platelet mean volume (Bld) [Entitic vol] 10.9 fL High 6.6-10.1 [facility] Comment on above: Performed By: #### A NA, [id number] #### [facility] , #### T4F, CRP, CK, CMP, ESR, CBC, TSH3 #### [facility] [address] [place] [address] [place] Platelets (Bld) [#/Vol] 216 10*3/uL Normal 150-450 [facility] Comment on above: Performed By: #### A NA, [id number] #### [facility] , #### T4F, CRP, CK, CMP, ESR, CBC, TSH3 #### [facility] [address] [place] [address] [place] RBC (Bld) [#/Vol] 5.20 10*6/uL Normal 3.90-5.60 [facility] Comment on above: Performed By: #### A NA, [id number] #### [facility] , #### T4F, CRP, CK, CMP, ESR, CBC, TSH3 #### [address] WBC (Bld) [#/Vol] 7.1 10*3/uL Normal 4.1-10.5 [facility] Comment on above: Performed By: #### A NA, [id number] #### [facility] , #### T4F, CRP, CK, CMP, ESR, CBC, TSH3 #### [address] Comprehensive Metabolic Pane chery 08-09-2023 Albumin [Mass/Vol] 4.6 g/dL Normal 3.5-5.7 [facility] Comment on above: Performed By: #### A NA, HLAB27 #### [facility] , #### T4F, CRP, CK, CMP, ESR, CBC, TSH3 #### [address] Albumin/Globulin [Mass ratio] 1.3 {ratio} Normal [facility] Comment on above: Performed By: #### A NA, HLAB27 #### [facility] , #### T4F, CRP, CK, CMP, ESR, CBC, TSH3 #### [address] ALP [Catalytic activity/Vol] 44 U/L Normal 34-104 [facility] Comment on above: Performed By: #### A NA, HLAB27 #### [facility] , #### T4F, CRP, CK, CMP, ESR, CBC, TSH3 #### [address] ALT [Catalytic activity/Vol] 50 U/L Normal 7-52 [facility] Comment on above: Performed By: #### A NA, HLAB27 #### [facility] , #### T4F, CRP, CK, CMP, ESR, CBC, TSH3 #### [facility] [address] [place] [address] Anion gap [Moles/Vol] 14.9 mmol/L Normal 6.0-15.0 [facility] Comment on above: Performed By: #### A NA, HLAB27 #### [facility] , #### T4F, CRP, CK, CMP, ESR, CBC, TSH3 #### [facility] [address] [place] [address] AST [Catalytic activity/Vol] 33 U/L Normal 13-39 [facility] Comment on above: Performed By: #### A NA, HLAB27 #### [facility] , #### T4F, CRP, CK, CMP, ESR, CBC, TSH3 #### [facility] [address] [place] [address] Bilirubin [Mass/Vol] 0.4 mg/dL Normal 0.3-1.0 [facility] Comment on above: Performed By: #### A NA, HLAB27 #### [facility] , #### T4F, CRP, CK, CMP, ESR, CBC, TSH3 #### [facility] [address] [place] [address] Calcium [Mass/Vol] 10.2 mg/dL Normal 8.6-10.3 [facility] Comment on above: Performed By: #### A NA, HLAB27 #### [facility] , #### T4F, CRP, CK, CMP, ESR, CBC, TSH3 #### [facility] [address] [place] [address] Chloride [Moles/Vol] 97 mmol/L Low 98-107 [facility] Comment on above: Performed By: #### A NA, HLAB27 #### [facility] , #### T4F, CRP, CK, CMP, ESR, CBC, TSH3 #### [place] [address] CO2 [Moles/Vol] 29.7 mmol/L Normal 21.0-31.0 [facility] Comment on above: Performed By: #### A NA, HLAB27 #### [facility] , #### T4F, CRP, CK, CMP, ESR, CBC, TSH3 #### [address] Creatinine [Mass/Vol] 0.80 mg/dL Normal 0.70-1.30 [facility] Comment on above: Performed By: #### A NA, HLAB27 #### [facility] , #### T4F, CRP, CK, CMP, ESR, CBC, TSH3 #### [address] GFR/1.73 sq M.predicted MDRD (S/P/Bld) [Vol rate/Area] mL/min/{1.73_m2} [facility] Comment on above: Performed By: #### A NA, [id number] #### [facility] , #### T4F, CRP, CK, CMP, ESR, CBC, TSH3 #### [address] Globulin (S) [Mass/Vol] 3.5 g/dL [facility] Comment on above: Performed By: #### A NA, HLAB27 #### [facility] , #### T4F, CRP, CK, CMP, ESR, CBC, TSH3 #### [address] Glucose [Mass/Vol] 157 mg/dL High 70-100 [facility] Comment on above: Result Comment: [facility] Glucose Reference Range is dependent on time and content of last meal. Glucose of more than 200 mg/dL in a nonstressed, ambulatory subject supports the diagnosis of Diabetes Mellitus. ADA recommended reference range Performed By: #### A NA, [id number] #### [facility] , #### T4F, CRP, CK, CMP, ESR, CBC, TSH3 #### [address] Potassium [Moles/Vol] 4.6 mmol/L Normal 3.5-5.1 [facility] Comment on above: Performed By: #### A NA, HLAB27 #### [facility] , #### T4F, CRP, CK, CMP, ESR, CBC, TSH3 #### [address] Protein [Mass/Vol] 8.1 g/dL Normal 6.4-8.9 [facility] Comment on above: Performed By: #### A NA, HLAB27 #### [facility] , #### T4F, CRP, CK, CMP, ESR, CBC, TSH3 #### [address] Sodium [Moles/Vol] 137 mmol/L Normal 136-145 [facility] Comment on above: Performed By: #### A NA, HLAB27 #### [facility] , #### T4F, CRP, CK, CMP, ESR, CBC, TSH3 #### [place] [address] [place] Urea nitrogen [Mass/Vol] 10 mg/dL Normal 7-25 [facility] Comment on above: Performed By: #### A NA, HLAB27 #### [facility] , #### T4F, CRP, CK, CMP, ESR, CBC, TSH3 #### [place] [address] [place] Creatine Kinaseon 08-09-2023 CK [Catalytic activity/Vol] 95 U/L Normal 30-223 [facility] Comment on above: Result Comment: PERF ORMED BY: [place] [address] PATHOLOGIST SALES AND [employer] MANAGEMENT RECRUITER JOSEPH SAUCEDA M.D. Performed By: #### A NA, [id number] #### [facility] , #### T4F, CRP, CK, CMP, ESR, CBC, TSH3 #### [address] Erythrocyte Sedimentation Ra baldo 08-09-2023 ESR (Bld) [Velocity] 30 mm/h High 0-19 [facility] Comment on above: Result Comment: PERF ORMED BY: [place] [address] PATHOLOGIST SALES AND RETAIL MANAGEMENT RECRUITER JOSEPH SAUCEDA M.D. Performed By: #### A NA, HLAB27 #### [facility] , #### T4F, CRP, CK, CMP, ESR, CBC, TSH3 #### [address] Free T4 (Free Thyroxine)on 1 Free T4 [Mass/Vol] 0.87 ng/dL Normal 0.61-1.12 [facility] Comment on above: Performed By: #### A NA, HLAB27 #### [facility] , #### T4F, CRP, CK, CMP, ESR, CBC, TSH3 #### [address] HLA B27 Disease Associationo n 08-09-2023 HLA B27 Disease Association Positive Normal . [facility] Comment on above: Result Comment: HLA- B*27 Positive This patient is positive for HLA-B*27. This procedure rules out the B*27:06 and 27:09 alleles, which the literature suggests are not associated with spondyloarthropathies. B27 allele interpretation for all loci based on IMGT/HLA database version 3.44 This test was developed and its performance characteristics determined by [employer]. It has not been cleared or approved by the Food and Drug Administration. [facility] CLIA ID Number [id number] THis test was performed using Polymerase Chain Reaction (PCR) and Sequence Specific Oligonucleotide Probes (SSOP) technique. Sequence Based Typing (SBT) may be used as a supplemental method when necessary. If you have questions, please call [facility] customer service at or email at [email or web address]. Performed at: [address] [place] [id number] Scientific Editor: Minerva Pearce PhD, Phone: [phone] PERFORMED BY: [place] [address] PATHOLOGIST SALES AND RETAIL MANAGEMENT RECRUITER JOSEPH SAUCEDA M.D. Performed By: #### A NA, HLAB27 #### [facility] , #### T4F, CRP, CK, CMP, ESR, CBC, TSH3 #### [address] Thyroid Stimulating Hormoneo n 08-09-2023 TSH Qn 2.42 m[IU]/L Normal 0.45-5.33 [facility] Comment on above: Result Comment: PERF ORMED BY: [place] [address] PATHOLOGIST SALES AND RETAIL MANAGEMENT RECRUITER JOSEPH SAUCEDA M.D. Performed By: #### A NA, HLAB27 #### [facility] , #### T4F, CRP, CK, CMP, ESR, CBC, TSH3 #### [place] [id number] [facility] XR thoracic spine 3V*on XR thoracic spine 3V* [facility] Main [place] [address] [place] [address] XRay Report Signed Patient: Vitaly Dobson MR#: [id number] : 1970 Acct:[id number] Age/Sex: 52 / M ADM Date: 08/09/23 Loc: ICXD Room: Type: [facility] Attending Dr: Edi Henriquez MD Copies to: Edi Henriquez MD Ordering Provider: Edi Henriquez MD Date of Service: 08/09/23 XR/XR lumbar spine 2-3V*: LOW BACK PAIN ([id number]) XR/XR thoracic spine 3V*: DISH VS ANKYLOSING SPONDYLITIS ([id number]) XR/XR si joints: LOW BACK PAIN CLINICAL [...] Vee Amanda M.D.08/09/2023 4:34 PM Dictation Location: [place] [address] Transcribed By: [facility] 08/09/23 1389 Dictated By: Vee Amanda MD 08/09/23 1609 Signed By: 08/09/23 1635 [facility] XR cervical spine 2-3Von 09- 20-2023 XR cervical spine 2-3V [facility] [employer] Other XR cervical spine 2-3V [address] [facility]3] [employer] Other XR cervical spine 2-3V [place] [address] [employer] Other XR cervical spine 2-3V XRay Report [facility] Other XR cervical spine 2-3V Signed [facility] Other XR cervical spine 2-3V Patient: VITALY DOBSON MR#: [id number] [employer] [facility] Other XR cervical spine 2-3V : 1970 Acct:[id number] [employer] [facility] Other XR cervical spine 2-3V Age/Sex: 52 / M ADM Date: 07/28/23 [facility] Other XR cervical spine 2-3V Loc: LAB [employer] Other XR cervical spine 2-3V Attending Dr: Semaj Avery D.O. [employer] [facility] Other XR cervical spine 2-3V Ordering Physician: Semaj Avery D.O. [facility] Other XR cervical spine 2-3V Date of Service: 07/28/23 [facility] Other XR cervical spine 2-3V Accession Number(s): [id number] [employer] [facility] Other XR cervical spine 2-3V cc: Semaj Avery D.O. [employer] Other XR cervical spine 2-3V [address] [place] [address] [employer] Other XR cervical spine 2-3V [place] [id number] [employer] Other XR cervical spine 2-3V [employer] Other XR cervical spine 2-3V Patient Name: [employer] Other XR cervical spine 2-3V VITALY DOBSON [employer] Other XR cervical spine 2-3V MRN: [facility]:[id number] date: 1970 Sex: M [employer] Other XR cervical spine 2-3V Assigned Patient Location: [facility] [employer] Other XR cervical spine 2-3V Current Patient Location: [facility] [employer] Other XR cervical spine 2-3V Accession/Order Number: [id number] [employer] Other XR cervical spine 2-3V Exam Date: 07/28/2023 11:15 Report Date: 07/28/2023 12:14 [employer] [facility] Other XR cervical spine 2-3V At the request of: [employer] Other XR cervical spine 2-3V SEMAJ BENNIE [employer] Other XR cervical spine 2-3V EXAMINATION: XR cervical spine 2-3V, XR lumbar spine 2-3V, XR thoracic spine [employer] Other XR cervical spine 2-3V 2V [employer] Other XR cervical spine 2-3V HISTORY: Scoliosis M41.20, Cervical Spondylosis M47.812 [employer] [facility] Other XR cervical spine 2-3V COMPARISON: No relevant comparison available. [employer] Other XR cervical spine 2-3V FINDINGS: [employer] Other XR cervical spine 2-3V BONES: Cervical spine demonstrates marked left convex curvature and mild [employer] Other XR cervical spine 2-3V reversal of normal lordotic curvature. Suspect degenerative changes versus [employer] Other XR cervical spine 2-3V osseous bridging of the facet joints at most levels. No appreciable fracture [employer] Other XR cervical spine 2-3V or [employer] Other XR cervical spine 2-3V spondylolisthesis [employer] Other XR cervical spine 2-3V Thoracic spine demonstrates moderate left convex curvature and exaggerated [employer] Other XR cervical spine 2-3V kyphosis. No appreciable fracture or spondylolisthesis. [employer] Other XR cervical spine 2-3V Lumbar spine demonstrates mild curvature at the thoracolumbar junction. [employer] Other XR cervical spine 2-3V Straightening of the normal lordotic curvature, and multilevel marked [employer] Other XR cervical spine 2-3V degenerative facet arthropathy. Bone encroachment on the L4-5 and L5-S1 neural [employer] Other XR cervical spine 2-3V foramen. [employer] Other XR cervical spine 2-3V DISC SPACES: Calcification of the interspinous ligaments throughout. Cervical [employer] Other XR cervical spine 2-3V spine multilevel mild disc space narrowing. Thoracic spine multilevel mild [employer] Other XR cervical spine 2-3V disc [employer] Other XR cervical spine 2-3V space narrowing. Lumbar spine and multilevel mild-moderate disc space [employer] Other XR cervical spine 2-3V narrowing. [employer] Other XR cervical spine 2-3V PARASPINOUS: No paraspinous abnormality is seen. [employer] Other XR cervical spine 2-3V Negative [employer] Other XR cervical spine 2-3V XR/XR cervical spine 2-3V [employer] Other XR cervical spine 2-3V IMPRESSION: [employer] Other XR cervical spine 2-3V 1. Limited examination due to patient needing to be imaged in the standing [employer] Other XR cervical spine 2-3V position. [employer] Other XR cervical spine 2-3V 2. Multilevel scoliotic curvature of the cervical and thoracic spine. [employer] Other XR cervical spine 2-3V 3. Thoracic kyphosis. [employer] Other XR cervical spine 2-3V 4. Findings favor diffuse ankylosing spondylitis throughout the cervical, [employer] Other XR cervical spine 2-3V thoracic, lumbar spine. [employer] Other XR cervical spine 2-3V 5. Multilevel mild degenerative disc disease. [employer] Other XR cervical spine 2-3V 6. Marked degenerative facet arthropathy of lumbar spine. [employer] Other XR cervical spine 2-3V Electronically authenticated by: DAMI GOMEZ Date: 07/28/2023 12:14 [facility] Other XR cervical spine 2-3V Dictated By: Dami Gomez M.D. 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: [employer] Other XR lumbar spine 2-3Von 07-28 XR lumbar spine 2-3V Accession Number(s): [id number] [employer] Other XR lumbar spine 2-3V Accession/Order Number: [id number] [employer] Other XR lumbar spine 2-3V XR/XR lumbar spine 2-3V [employer] Other XR thoracic spine 2Von 07-28 XR thoracic spine 2V Accession Number(s): [id number] [employer] Other XR thoracic spine 2V Accession/Order Number: [id number] [employer] Other XR thoracic spine 2V XR/XR thoracic spine 2V [employer] Other LIPID PROFILE SEND OUTon Cholesterol [Mass/Vol] 259 mg/dL Critically high 100-199 [facility] Comment on above: Performed By: #### B MPLC, LIPIDLC #### [facility] [address] [place] [address] [address] David Brown Cholesterol in HDL [Mass/Vol] 16 mg/dL Critically low >39 [facility] Comment on above: Performed By: #### B MPLC, LIPIDLC #### [facility] [address] [address] [address] David Brown Comment: Normal [facility] Comment on above: Performed By: #### B MPLC, LIPIDLC #### [facility] [address] [place] [address] [address] David Brown LDL Chol. Calc. ([facility]) Comment Abnormal 0-99 [facility] Comment on above: Result Comment: Trig lyceride result indicated is too high for an accurate LDL cholesterol estimation. Performed By: #### B MPLC, LIPIDLC #### [facility] [address] [place] [address] [address] David Brown Triglyceride [Mass/Vol] 2070 mg/dL Invalid Interpretation Code 0-149 [facility] Comment on above: Result Comment: Resu lts confirmed on dilution. Performed By: #### B MPLC, LIPIDLC #### [facility] [address] [place] [address] [address] David Brown VLDL Cholesterol, Calc Comment Abnormal 5-40 [facility] Comment on above: Result Comment: The calculation for the VLDL cholesterol is not valid when triglyceride level is >800 mg/dL. Performed By: #### B MPLC, LIPIDLC #### [facility] [address] [place] [address] Dr. David Brown PROF CHEM 8 (BAS METB) SEND OUTon 02-04-2023 Calcium [Mass/Vol] 10.0 mg/dL Normal 8.7-10.2 [facility] Comment on above: Performed By: #### B MPLC, LIPIDLC #### [facility] [address] [place] [address] Dr. David Brown Chloride [Moles/Vol] 91 mmol/L Critically low 96-106 [facility] Comment on above: Performed By: #### B MPLC, LIPIDLC #### [facility] [address] [place] [address] Dr. David Brown CO2 [Moles/Vol] 24 mmol/L Normal 20-29 [facility] Comment on above: Performed By: #### B MPLC, LIPIDLC #### [facility] [address] [place] [address] Dr. David Brown Creatinine [Mass/Vol] 1.00 mg/dL Normal 0.76-1.27 [facility] Comment on above: Performed By: #### B MPLC, LIPIDLC #### [facility] [address] [place] [address] Dr. David Brown GFR/1.73 sq M.predicted among non-blacks MDRD (S/P/Bld) [Vol rate/Area] 90 mL/min/{1.73_m2} Normal >59 [facility] Comment on above: Performed By: #### B MPLC, LIPIDLC #### [facility] [address] [place] [address] Dr. David Brown Glucose [Mass/Vol] 205 mg/dL Critically high 70-99 [facility] Comment on above: Performed By: #### B MPLC, LIPIDLC #### [facility] [address] [place] [address] Dr. David Brown Potassium [Moles/Vol] 4.7 mmol/L Normal 3.5-5.2 [facility] Comment on above: Performed By: #### B MPLC, LIPIDLC #### [facility] [address] [place] [address] Dr. David Brown Sodium [Moles/Vol] 132 mmol/L Critically low 134-144 [facility] Comment on above: Performed By: #### B MPLC, LIPIDLC #### [facility] [address] [place] [address] Dr. David Brown Urea nitrogen [Mass/Vol] 18 mg/dL Normal 6-24 [facility] Comment on above: Performed By: #### B MPLC, LIPIDLC #### [facility] [address] [place] [address] Dr. David Brown Urea nitrogen/Creatinine [Mass ratio] 18 mg/mg Normal 9-20 [facility] Comment on above: Performed By: #### B MPLC, LIPIDLC #### [facility] [address] [place] [address] Dr. David Brown CBC AUTO DIFFon 02-03-2023 BASO # 0.1 103/ul Normal 0.0-0.1 [facility] Comment on above: Performed By: #### C BC #### [facility] [address] [place] [address] Dr. David Brown Basophils/100 WBC (Bld) 0.6 % Normal 0.2-2.0 [facility] Comment on above: Performed By: #### C BC #### [facility] [address] [place] [address] Dr. David Brown EO # 0.2 103/ul Normal 0.0-0.7 [facility] Comment on above: Performed By: #### C BC #### [facility] [address] [place] [address] Dr. David Brown Eosinophils/100 WBC (Bld) 2.2 % Normal 0.9-7.0 [facility] Comment on above: Performed By: #### C BC #### [facility] [address] [place] [address] Dr. David Brown Erythrocyte distribution width (RBC) [Ratio] 12.7 % Normal 11.0-15.0 [facility] Comment on above: Performed By: #### C BC #### [facility] [address] [place] [address] Dr. David Brown Hematocrit (Bld) [Volume fraction] 43.6 % Normal 42.0-54.0 [facility] Comment on above: Performed By: #### C BC #### [facility] [address] [place] [address] Dr. David Brown Hemoglobin (Bld) [Mass/Vol] 14.6 g/dL Normal 14.0-18.0 [facility] Comment on above: Performed By: #### C BC #### [facility] [address] [place] [address] Dr. David Brown IG # 0.03 10e3/ul Normal 0.00-0.03 [facility] Comment on above: Performed By: #### C BC #### [facility] [address] [place] [address] Dr. David Brown IG % 0.3 % Normal 0.0-0.5 [facility] Comment on above: Performed By: #### C BC #### [facility] [address] [place] [address] Dr. David Brown LYMPH # 3.6 103/ul Normal 1.2-3.8 [facility] Comment on above: Performed By: #### C BC #### [facility] [address] [place] [address] Dr. David Brown Lymphocytes/100 WBC (Bld) 37.8 % Normal 20.5-60.0 [facility] Comment on above: Performed By: #### C BC #### [facility] [address] [place] [address] Dr. David Brown MANUAL DIFF REQ NO Normal [facility] Comment on above: Performed By: #### C BC #### [facility] [address] [place] [address] Dr. David Brown MCH (RBC) [Entitic mass] 28.3 pg Normal 25.9-34.0 [facility] Comment on above: Performed By: #### C BC #### [facility] [address] [place] [address] Dr. David Brown MCHC (RBC) [Mass/Vol] 33.5 g/dL Normal 29.9-35.2 [facility] Comment on above: Performed By: #### C BC #### [facility] [address] [place] [address] Dr. David Brown MCV (RBC) [Entitic vol] 84.7 fL Normal 80.0-94.0 [facility] Comment on above: Performed By: #### C BC #### [facility] [address] [place] [address] Dr. David Brown MONO # 0.9 103/ul Critically high 0.3-0.8 [facility] Comment on above: Performed By: #### C BC #### [facility] [address] [place] [address] Dr. David Brown Monocytes/100 WBC (Bld) 9.6 % Normal 1.7-12.0 [facility] Comment on above: Performed By: #### C BC #### [facility] [address] [place] [address] Dr. David Brown NEUT # 4.8 103/ul Normal 1.4-6.5 [facility] Comment on above: Performed By: #### C BC #### [facility] [address] [place] [address] Dr. David Brown Neutrophils/100 WBC (Bld) 49.5 % Normal 43.0-75.0 [facility] Comment on above: Performed By: #### C BC #### [facility] [address] [place] [address] Dr. David Brown Platelet mean volume (Bld) [Entitic vol] 12.0 fL Normal 9.5-13.5 [facility] Comment on above: Performed By: #### C BC #### [facility] [address] [place] [address] Dr. David Brown PLT 254 103/ul Normal 150-450 [facility] Comment on above: Performed By: #### C BC #### [facility] [address] [place] [address] [address] David Brown RBC 5.15 106/ul Normal 4.70-6.10 [facility] Comment on above: Performed By: #### C BC #### [facility] [address] [place] [address] Dr. David Brown WBC 9.6 103/ul Normal 4.0-11.0 [facility] Comment on above: Performed By: #### C BC #### [facility] [address] [place] [address] Dr. David Brown GLYCOHEMOGLOBIN A1Con 2022 ADA RECOMMENDATION SEE BELOW Normal [facility] Comment on above: Result Comment: ADA RECOMMENDED LIMIT 4.0 - 6.0 ADA THERAPEUTIC TARGET < 7.0 ACTION SUGGESTED > 7.0 Performed By: #### A 1C #### [facility] [address] [place] [address] Dr. David Brown Glucose [Mass/Vol] 212 mg/dL Normal [facility] Comment on above: Performed By: #### A 1C #### [facility] [address] [place] [address] Dr. David Brown HbA1c (Bld) [Mass fraction] 9.0 % Critically high 4.5-6.2 [facility] [facility] Comment on above: Performed By: #### A 1C #### [facility] [address] [place] [address] Dr. David Brown MICROALBUMIN, RAND URon 03-2 mALB 5.5 mg/L Normal <=30.0 [facility] Comment on above: Performed By: #### M ALBR #### [facility] [address] [place] [address] Dr. David Brown GLYCOHEMOGLOBIN A1Con 2021 ADA RECOMMENDATION SEE BELOW Normal [facility] Comment on above: Result Comment: ADA RECOMMENDED LIMIT 4.0 - 6.0 ADA THERAPEUTIC TARGET < 7.0 ACTION SUGGESTED > 7.0 Performed By: #### A 1C #### [facility] [address] [place], [place] [address] Dr. David Brown Glucose [Mass/Vol] 194 mg/dL Normal [facility] Comment on above: Performed By: #### A 1C #### [facility] [address] [place], [place] [address] Dr. David Brown HbA1c (Bld) [Mass fraction] 8.4 % Critically high 4.5-6.2 [facility] Comment on above: Performed By: #### A 1C #### [facility] [address] [place], [place] [address] Dr. David Brown Vital Signs Date Time Vital Sign Value Performing Clinician Facility 07-28-2023 09:30-0400 Body height 160.02 cm Semaj Ball [facility] 07-28-2023 09:30-0400 Body mass index (BMI) [Ratio] 47.33 kg/m2 Semaj Ball [facility] 07-28-2023 09:30-0400 Body weight 121.2 kg Semaj Ball Other [facility] 07-28-2023 09:30-0400 Diastolic blood pressure 87 mm[Hg] Semaj Ball Other [facility] 07-28-2023 09:30-0400 Respiratory rate 12 /min Semaj Ball Other [facility] 07-28-2023 09:30-0400 Systolic blood pressure 132 mm[Hg] Semaj Ball Other [facility] 01-25-2023 12:30-0400 Body height 160.02 cm Semaj Ball Other [facility] 01-25-2023 12:30-0400 Body mass index (BMI) [Ratio] 47.75 kg/m2 Semaj Avery Other [facility] 01-25-2023 12:30-0400 Body weight 122.29 kg Semaj Avery Other [facility] 01-25-2023 12:30-0400 Diastolic blood pressure 82 mm[Hg] Semaj Avery Other [facility] 01-25-2023 12:30-0400 Respiratory rate 12 /min Semaj Avery Other [facility] 01-25-2023 12:30-0400 Systolic blood pressure 130 mm[Hg] Semaj Avery Other [facility] Other Encounters Encounter Date Encounter Type Care Provider Facility Start: 05-25-2024 End: 05-25-2024 ambulatory RODRICK R DOLCE Not Available Start: 03-02-2024 End: 03-02-2024 ambulatory RODRICK R DOLCE Not Available Start: 01-01-2024 Evaluation and management of inpatient DELGADO GUIDO [facility] Start: 01-01-2024 End: 01-06-2024 Evaluation and management of inpatient SEMAJ AVERY [facility] Start: 11-18-2023 End: 11-18-2023 ambulatory RODRICK R DOLCE Not Available Start: 11-02-2023 End: 11-02-2023 ambulatory Semaj Avery [facility] Start: 11-02-2023 Telephone encounter Semaj Avery [facility] Start: 10-29-2023 End: 10-29-2023 ambulatory Semaj Avery Other [facility] Start: 10-29-2023 Telephone encounter Semaj MILES [facility] Start: 10-27-2023 End: 10-27-2023 ambulatory Semaj Avery Other [facility] Start: 10-27-2023 Telephone encounter Semaj Avery [facility] Start: 10-05-2023 End: 10-05-2023 ambulatory Semaj Avery Other [facility] Start: 10-05-2023 Telephone encounter eSmaj Avery [facility] Start: 08-09-2023 End: 08-09-2023 ambulatory Edi Henriquez Facility:[facility] Start: 07-28-2023 End: 07-28-2023 ambulatory Semaj Avery Other [facility] Start: 07-28-2023 Office outpatient vi sit 25 minutes Semaj Avery [facility] Start: 07-28-2023 Telephone encounter Semaj Avery [facility] Start: 02-04-2023 End: 02-04-2023 ambulatory Semaj Avery Other [facility] Start: 02-04-2023 Telephone encounter Semaj Avery [facility] Start: 02-03-2023 Telephone encounter Semaj Avery [facility] Start: 02-03-2023 End: 02-04-[address] SEMAJ AVERY [facility] Other Start: 01-25-2023 End: 01-25-2023 ambulatory Semaj Avery Other [facility] Start: 01-25-2023 Encounter for genera l adult medical examination without abnormal findings Semaj Avery [facility] Start: 01-25-2023 Initial preventive exam Semaj Bal l [facility] Start: 01-25-2023 Patient encounter procedure Semaj Avery [facility] Start: 08-07-2022 End: 08-08-[address] SEMAJ AVERY Facility:[facility] Procedures Date Procedure Procedure Detail Performing Clinician Start: 02-03-[address] IVETT AVERY Comment on above: Performed By: #### [facility] #### [facility] [address] [place] [address] [address] David Brown Immunizations Immunization Date Immunization Notes Care Provider Fa donnie 09-04-2022 influenza, injectabl e, quadrivalent, contains preservative Semaj Bennie [facility] 09-04-2022 COVID-19 Pfizer (bivalent) Semaj Avery Other [facility] 09-04-2022 COVID-19 Pfizer (Pediatric) Semaj Avery Other [facility] 09-04-2022 influenza virus vaccine, split virus (incl. purified surface antigen) Semaj Avery Other [facility] 04-18-2022 zoster vaccine recombinant Semaj Avery Other [facility] 04-18-2022 zoster vaccine, live Benjami n Ball Other [facility] Other 02-13-2022 COVID-19 Vaccine Pfi zer - Documentation Purposes Only Semaj Avery Other [facility] 02-13-2022 Prevnar 20 Semaj Avery Other [facility] 02-13-2022 zoster vaccine recombinant Semaj Avery Other [facility] Other 02-13-2022 zoster vaccine, live Benjami n Ball Other [facility] Other 09-30-2021 COVID-19 Vaccine Pfi zer - Documentation Purposes Only Semaj Avery Other [facility] Other 02-11-2021 COVID-19 Vaccine Pfi zer - Documentation Purposes Only Semaj Avery Other [facility] Other 01-20-2021 COVID-19 Vaccine Pfi zer - Documentation Purposes Only Semaj Avery Other [facility] Other 07-22-2020 influenza virus vaccine, split virus (incl. purified surface antigen) Semaj Avery Other [facility] Other 09-13-2017 tetanus and diphther ia toxoids, adsorbed, preservative free, for adult use (5 Lf of tetanus toxoid and 2 Lf of diphtheria toxoid) Semaj Avery Other [facility] Other Payers Date Payer Category Payer Medicare [id number] 2023 Self-pay 1970 Unknown [id number] 2.16.84 [id number] 1970 Unknown [id number] 2.16.84 [id number] 1970 Unknown [id number] 2.16. [id number] 1969 Unknown [id number] 2.16. [id number] 1969 Unknown [id number] 2.16.84 [id number] 1969 Unknown [id number] 2.16.84 [id number] 1969 Unknown [id number] 2.16.84 [id number] 1960 Medicaid [id number] 2. [id number] 1960 Medicare [id number] 2.1 [id number] Unknown [id number] 2.16.8 [id number] Social History Date Type Detail Facility Sex Assigned At [facility] Clinical Notes 01-25-2023 to 11-02-2023 Note Date & Type Note Facility 11-02-2023 Evaluation note Encounter Date Diagnosis Assessment Notes Oct, Ankylosing spondylitis of thoracolumbar region (ICD-10 - M45.5) [facility] [id number] Evaluation note* Encounter Date Diagnosis Assessment Notes Treatment Notes Treatment Clinical Notes Oct, Type 2 diabetes mellitus with hyperglycemia, without long-term current use of insulin (ICD-10 - E11.65) [facility] [id number] Evaluation note* Encounter Date Diagnosis Assessment Notes Treatment Notes Treatment Clinical Notes Sep, Type 2 diabetes mellitus with hyperglycemia, without long-term current use of insulin (ICD-10 - E11.65) [facility] Other 09-20-2023 Evaluation note* Encounter Date Diagnosis [...] creams, lidocaine patches and muscle relaxants at [facility] Other 09-20-2023 NoteProcedure(s): XR cervical spine 2-3V [facility] Other 09-20-2023 NoteProcedure: XR cervical spine 2-3[facility] Other 09-20-2023 NoteProcedure(s): XR thoracic spine 2[facility] Other 09-20-2023 NoteProcedure: XR thoracic spine 2[facility] Other 09-20-2023 NoteProcedure(s): [facility] [employer] [facility] 09-20-2023 NoteProcedure: XR lumbar spine 2-3[facility] Other 03-30-2023 Evaluation note* Encounter Date Diagnosis Assessment Notes Treatment Notes Treatment Clinical Notes Jan, Mixed hyperlipidemia (ICD-10 - E78.2) [facility] 03-29-2023 Evaluation note* Encounter Date Diagnosis Assessment Notes Treatment Notes Treatment Clinical Notes Jan, Type 2 diabetes mellitus with hyperglycemia, without long-term current use of insulin (ICD-10 - E11.65) [facility] Other 03-20-2023 Evaluation note* Encounter Date Diagnosis [...] reviewed and amended by provider signed below. [facility] Other Evaluation noteNo InformationNortMedrobot[employer] Other History general Narrative - Reported* Type [...] HEM AT[place] Hospitalization History SEE SURGICAL HX [facility] Other Reason for referral (narrative)* Reason Referral for ankylos ing spondylitis Diagnosis 1 Ankylosing spondylit is of thoracolumbar region (M45.5) Diagnosis 2 Scoliosis (and kypho scoliosis), idiopathic (M41.20) Diagnosis 3 Cervical spondylosis (M47.812) Referral Organization [facility] Referring Provider First Name Semaj Referring Provider Last Name Bennie Referring Provider Specialty Internal Ny dicine Referred Organization Unknown Facility Referred Provider [...] medical treatment. Clinical Notes Include XR reports [facility] Other Summary Purpose Family History No Family [...] content) DATE CREATED AUTHOR 02/14/2023 [facility] DATE CREATED AUTHOR AUTHOR'S ORGANIZ ATION 08/18/2023 [facility] DATE CREATED AUTHOR AUTHOR'S ORGANIZ ATION 01/13/2024 [facility] DATE CREATED AUTHOR AUTHOR'S ORGANIZ ATION 05/29/2024 [facility] FOR RECORDS PERTAINING TO PATIENTS WHO ARE [...] BE BASED ON THE PRIMARY CLINICAL RECORDS. [facility] [employer] provides no warranty or guarantee of the accuracy or completeness of information in this document.
[2024-06-26 09:59] LABS: Basophils Absolute Auto 0.1 10^3/uL (0.0-0.1); Basophils Percent Auto 0.7 % (0.2-2.0); Eosinophils Absolute Auto 0.2 10^3/uL (0.0-0.7); Eosinophils Percent Auto 2.4 % (0.9-7.0); Hematocrit 43.6 % (42.0-54.0); Hemoglobin 14.3 g/dL (14.0-18.0); Immature Granulocytes Abs Auto 0.02 10^3/uL (0.00-0.03); Immature Granulocytes Pct Auto 0.2 % (0.0-0.5); Lymphocytes Percent Auto 24.6 % (20.5-60.0); Mean Corpuscular HGB Conc 32.8 g/dL (29.9-35.2); Mean Corpuscular Hemoglobin 28.5 pg (25.9-34.0); Mean Corpuscular Volume 86.9 fL (80.0-94.0); Mean Platelet Volume 12.2 fL (9.5-13.5); Monocytes Absolute Auto 0.8 10^3/uL (0.3-0.8); Monocytes Percent Auto 10.2 % (1.7-12.0); Neutrophils Percent Auto 61.9 % (43.0-75.0); Platelet Count 243 10^3/uL (150-450); Red Blood Count 5.02 10^6/uL (4.70-6.10); Red Cell Distribution Width 12.7 % (11.0-15.0)
[2024-06-26 10:21] LABS: Estimated Average Glucose 180 mg/dL; Glycohemoglobin A1C 7.9 % (4.5-6.2)
[2024-06-26 10:36] LABS: Alanine Aminotransferase 45 U/L (16-63); Albumin Globulin Ratio 0.8; Alkaline Phosphatase 53 U/L (46-116); Anion Gap 12.7; Aspartate Amino Transferase 28 U/L (15-37); BUN Creatinine Ratio 13.7; Bilirubin Total 0.5 mg/dL (0.2-1.0); Calcium 9.3 mg/dL (8.5-10.1); Carbon Dioxide 29.4 mmol/L (21.0-32.0); Chloride 96 mmol/L (98-107); Cholesterol 199 mg/dL (<=200); Estimated GFR (African America >60 (>=60); Estimated GFR (Non-African Ame >60 (>=60); Globulin 4.8 g/dL; Glucose 154 mg/dL (74-106); HDL Cholesterol 25 mg/dL (40-60); Potassium 4.1 mmol/L (3.5-5.1); Sodium 134 mmol/L (136-145); Total Protein 8.8 g/dL (6.4-8.2); Triglycerides 259 mg/dL (<=150); VLDL CHOLESTEROL 51.8 mg/dL
[2024-06-26 11:36] LABS: Prostate Specific Antigen Scrn 0.51 ng/mL (<=4.00)
[2024-06-26 12:32] LABS: Microalbumin Urine Random 1.9 mg/dL (<=30.0)
== END 2024-06-26 09:39 | disposition home or self-care (01) ==
LOC: LAB 09:41
PROVIDERS: PCP Internal Medicine; Visit Provider Internal Medicine
DX: D64.9 Anemia, unspecified (principal); E11.65 Type 2 diabetes mellitus with hyperglycemia; Z12.5 Encounter for screening for malignant neoplasm of prostate; I27.29 Other secondary pulmonary hypertension; D75.9 Disease of blood and blood-forming organs, unspecified; G47.33 Obstructive sleep apnea (adult) (pediatric); I10 Essential (primary) hypertension
CPT/HCPCS: 36415; 80053; 80061; 82043; 83036; 85025; G0103

== ENCOUNTER 2024-07-05 07:35 | Outpatient (OUT) | payer MEDICARE, MEDICAID, SELFPAY ==
--- OUTSIDE RECORDS SUMMARY | 2024-07-05 07:39 | XMS_ITS | CCD ---
Author Organization [facility] Care Team Providers Care Harness Rigger Name Role Phone Semaj Avery Unavailable BENNIE, [...] route three times daily as needed Ipratropium [place] 0.06 % 2 sprays in e ach [...] days Nov, Active take 1 capsule by [facility] once at bedtime as needed [...] Sig (Normalized) Sig (Original) polyethylene glycol 3350 80566 mg powder for oral solution (9 sources) [...] 02-05-2023 Chronic Other aftercare (3 sources) Other long term care phlebotomist (current) drug therapy; Translations: [OTH RETIREMENT CURRENT DRUG THERAPY] Onset: 02-05-2023 Episodic Other [...] Anion gap [Moles/Vol] 8 mmol/L Low 9-17 [facility] Comment on above: Performed By: #### B MPX, CDP ####[facility] [address] [place], [place] [phone] Director: Rafa Prieto MD Calcium [Mass/Vol] 7.9 mg/dL Low 8.6-10.4 [facility] Comment on above: Performed By: #### B MPX, CDP ####[facility] [address] [place], [place] [phone] Director: Rafa Prieto MD Chloride [Moles/Vol] 97 mmol/L Low 98-107 [facility] Comment on above: Performed By: #### B MPX, CDP ####[facility] [address] [place], [place] [phone] Director: Rafa Prieto MD CO2 [Moles/Vol] 25 mmol/L Normal 20-31 [facility] Comment on above: Performed By: #### B MPX, CDP ####[facility] [address] [place] [address] [phone] Director: Rafa Prieto MD Creatinine [Mass/Vol] 0.6 mg/dL Low 0.7-1.2 [facility] Comment on above: Performed By: #### B MPX, CDP ####[facility] [address] [place] [address] [phone] Director: Rafa Prieto MD GFR/1.73 sq M.predicted among non-blacks MDRD (S/P/Bld) [Vol rate/Area] mL/min/{1.73_m2} Normal >60 [facility] Comment on above: Result Comment: These [...] Performed By: #### B MPX, CDP ####[facility] [address] [place], [place] [phone] Director: Rafa Prieto MD Glucose [Mass/Vol] 122 mg/dL High 70-99 [facility] Comment on above: Performed By: #### B MPX, CDP ####[facility] [address] [place], [place] [phone] Director: Rafa Prieto MD Potassium [Moles/Vol] 3.9 mmol/L Normal 3.7-5.3 [facility] Comment on above: Performed By: #### B MPX, CDP ####[facility] [address] [place], [place] [phone] Director: Rafa Prieto MD Sodium [Moles/Vol] 130 mmol/L Low 135-144 [facility] Comment on above: Performed By: #### B MPX, CDP ####[facility] [address] [place], [place] [phone] Director: Rafa Prieto MD Urea nitrogen [Mass/Vol] 10 mg/dL Normal 6-20 [facility] Comment on above: Performed By: #### B MPX, CDP ####[facility] [address] [place], [place] [phone] Director: Rafa Prieto MD CBC with Diffon 01-06-2024 Abs. Basophil 0.04 k/uL Normal 0.00-0.20 [facility] Comment on above: Performed By: #### H EPXA, PTT #### [employer] [address] [place] [address] County Administrator: Rafa Prieto MD Abs.Imm.Granulocyte 0.03 k/uL Normal 0.00-0.30 [facility] Comment on above: Performed By: #### H EPXA, PTT #### [employer] [address] [place] [address] County Administrator: Rafa Prieto MD Abs.Neutrophil (Seg) 5.00 k/uL Normal 1.50-8.10 [facility] Comment on above: Performed By: #### H EPXA, PTT #### [facility] [address] [place] [address] County Administrator: Rafa Prieto MD Basophils/100 WBC (Bld) 1 % Normal 0-2 [facility] Comment on above: Performed By: #### H EPXA, PTT #### [facility] [address] [place] [address] County Administrator: Rafa Prieto MD Eosinophils (Bld) [#/Vol] 0.38 10*3/uL Normal 0.00-0.44 [facility] Comment on above: Performed By: #### H EPXA, PTT #### [address] [address] County Administrator: Rafa Prieto MD Eosinophils/100 WBC (Bld) 5 % High 1-4 [facility] Comment on above: Performed By: #### H EPXA, PTT #### [address] [address] County Administrator: Rafa Prieto MD Erythrocyte distribution width (RBC) [Ratio] 16.5 % High 11.8-14.4 [facility] Comment on above: Performed By: #### H EPXA, PTT #### [facility] [address] [place] [address] County Administrator: Rafa Prieto MD Hematocrit (Bld) [Volume fraction] 37.0 % Low 40.7-50.3 [facility] Comment on above: Performed By: #### H EPXA, PTT #### [facility] [address] [place] [address] County Administrator: Rafa Prieto MD Hemoglobin (Bld) [Mass/Vol] 10.7 g/dL Low 13.0-17.0 [facility] Comment on above: Performed By: #### H EPXA, PTT #### [address] [address] County Administrator: Rafa Prieto MD Immature granulocytes/100 WBC (Bld) 0 % Normal 0 [facility] Comment on above: Performed By: #### H EPXA, PTT #### [address] [address] County Administrator: Rafa Prieto MD Lymphocytes (Bld) [#/Vol] 1.55 10*3/uL Normal 1.10-3.70 [facility] Comment on above: Performed By: #### H EPXA, PTT #### [address] [address] County Administrator: Rafa Prieto MD Lymphocytes/100 WBC (Bld) 19 % Low 24-43 [facility] Comment on above: Performed By: #### H EPXA, PTT #### [address] [address] County Administrator: Rafa Prieto MD MCH (RBC) [Entitic mass] 24.0 pg Low 25.2-33.5 [facility] Comment on above: Performed By: #### H EPXA, PTT #### [address] [address] County Administrator: Rafa Prieto MD MCHC (RBC) [Mass/Vol] 28.9 g/dL Normal 28.4-34.8 [facility] Comment on above: Performed By: #### H EPXA, PTT #### [address] [address] County Administrator: Rafa Prieto MD MCV (RBC) [Entitic vol] 83.0 fL Normal 82.6-102.9 [facility] Comment on above: Performed By: #### H EPXA, PTT #### [address] [address] County Administrator: Rafa Prieto MD Monocytes (Bld) [#/Vol] 0.99 10*3/uL Normal 0.10-1.20 [facility] Comment on above: Performed By: #### H EPXA, PTT #### [address] [address] County Administrator: Rafa Prieto MD Monocytes/100 WBC (Bld) 12 % Normal 3-12 [facility] Comment on above: Performed By: #### H EPXA, PTT #### [address] [address] County Administrator: Rafa Prieto MD Neutrophil (Seg) 63 % Normal 36-65 [facility] Comment on above: Performed By: #### H EPXA, PTT #### [address] [address] County Administrator: Rafa Prieto MD NRBC Automated 0.0 per 100 WBC Normal 0.0 [facility] Comment on above: Performed By: #### H EPXA, PTT #### [address] [address] County Administrator: Rafa Prieto MD Platelet mean volume (Bld) [Entitic vol] 10.8 fL Normal 8.1-13.5 [facility] Comment on above: Performed By: #### H EPXA, PTT #### [address] [address] County Administrator: Rafa Prieto MD Platelets (Bld) [#/Vol] 204 10*3/uL Normal 138-453 [facility] Comment on above: Performed By: #### H EPXA, PTT #### [address] [address] County Administrator: Rafa Prieto MD RBC (Bld) [#/Vol] 4.46 10*6/uL Normal 4.21-5.77 [facility] Comment on above: Performed By: #### H EPXA, PTT #### [facility] [place] [address] County Administrator: Rafa Prieto MD RBC morphology finding Nom (Bld) ANISOCYTOSIS PRESENT Normal [facility] Comment on above: Performed By: #### H EPXA, PTT #### [facility] [address] [place] [address] County Administrator: Rfaa Prieto MD WBC (Bld) [#/Vol] 8.0 10*3/uL Normal 3.5-11.3 [facility] Comment on above: Performed By: #### H EPXA, PTT #### [facility] [address] [place] [address] County Administrator: Rafa Prieto MD Cult,Urineon 01-06-2024 Cult,Urine Specimen Description .CLEAN CATCH URINE Culture NO GROWTH Report Status FINAL 01/06/2024 Normal [facility] Comment on above: Performed By: #### U RC #### [address] [address] County Administrator: Rafa Prieto MD Glucose,Whole Bloodon 2023 Glucose [Mass/Vol] 174 mg/dL High 75-110 [facility] Glucose [Mass/Vol] 192 mg/dL High 75-110 [facility] Glucose [Mass/Vol] 119 mg/dL High 75-110 [facility] Heparin Anti-Xaon 01-06-2024 Heparin Anti-Xa 0.41 IU/L Normal [facility] Comment on above: Performed By: #### H EPXA ####[facility] [address] [place] [address] Lab Director: Rafa Prieto MD Basic Metab w/rfx MGon 01-05 Anion gap [Moles/Vol] 11 mmol/L Normal 9-17 [facility] Comment on above: Performed By: #### U RC #### [address] [address] County Administrator: Rafa Prieto MD Calcium [Mass/Vol] 7.9 mg/dL Low 8.6-10.4 [facility] Comment on above: Performed By: #### U RC #### [address] [address] County Administrator: Rafa Prieto MD Chloride [Moles/Vol] 99 mmol/L Normal 98-107 [facility] Comment on above: Performed By: #### U RC #### [address] [address] County Administrator: Rafa Prieto MD CO2 [Moles/Vol] 24 mmol/L Normal 20-31 [facility] Comment on above: Performed By: #### U RC #### [address] [address] County Administrator: Rafa Prieto MD Creatinine [Mass/Vol] 0.6 mg/dL Low 0.7-1.2 [facility] Comment on above: Performed By: #### U RC #### [address] [address] County Administrator: Rafa Prieto MD GFR/1.73 sq M.predicted among non-blacks MDRD (S/P/Bld) [Vol rate/Area] mL/min/{1.73_m2} Normal >60 [facility] Comment on above: Result Comment: These [...] secretion. Performed By: #### U RC #### [address] [address] County Administrator: Rafa Prieto MD Glucose [Mass/Vol] 97 mg/dL Normal 70-99 [facility] Comment on above: Performed By: #### U RC #### [address] [address] County Administrator: Rafa Prieto MD Potassium [Moles/Vol] 4.3 mmol/L Normal 3.7-5.3 [facility] Comment on above: Performed By: #### U RC #### [address] [address] County Administrator: Rafa Prieto MD Sodium [Moles/Vol] 134 mmol/L Low 135-144 [facility] Comment on above: Performed By: #### U RC #### [address] [address] County Administrator: Rafa Prieto MD Urea nitrogen [Mass/Vol] 10 mg/dL Normal 6-20 [facility] Comment on above: Performed By: #### U RC #### [address] [address] County Administrator: Rafa Prieto MD CBC with Diffon 01-05-2024 Abs. Basophil 0.00 k/uL Normal 0.0-0.2 [facility] Comment on above: Performed By: #### U RC #### [address] [address] County Administrator: Rafa Prieto MD Abs.Imm.Granulocyte 0.00 k/uL Normal 0.00-0.30 [facility] Comment on above: Performed By: #### U RC #### [address] [address] County Administrator: Rafa Prieto MD Abs.Neutrophil (Seg) 4.99 k/uL Normal 1.8-7.7 [facility] Comment on above: Performed By: #### U RC #### [address] [address] County Administrator: Rafa Prieto MD Basophils/100 WBC (Bld) 0 % Normal 0-2 [facility] Comment on above: Performed By: #### U RC #### [address] [address] County Administrator: Rafa Prieto MD Eosinophils (Bld) [#/Vol] 0.39 10*3/uL Normal 0.0-0.4 [facility] Comment on above: Performed By: #### U RC #### [address] [address] County Administrator: Rafa Prieto MD Eosinophils/100 WBC (Bld) 5 % High 1-4 [facility] Comment on above: Performed By: #### U RC #### [address] [address] County Administrator: Rafa Prieto MD Immature granulocytes/100 WBC (Bld) 0 % Normal 0 [facility] Comment on above: Performed By: #### U RC #### [address] [address] County Administrator: Rafa Prieto MD Lymphocytes (Bld) [#/Vol] 1.48 10*3/uL Normal 1.0-4.8 [facility] Comment on above: Performed By: #### U RC #### [address] [address] County Administrator: Rafa Prieto MD Lymphocytes/100 WBC (Bld) 19 % Low 24-44 [facility] Comment on above: Performed By: #### U RC #### [address] [address] County Administrator: Rafa Prieto MD Monocytes (Bld) [#/Vol] 0.94 10*3/uL High 0.1-0.8 [facility] Comment on above: Performed By: #### U RC #### [address] [address] County Administrator: Rafa Prieto MD Monocytes/100 WBC (Bld) 12 % High 1-7 [facility] Comment on above: Performed By: #### U RC #### [address] [address] County Administrator: Rafa Prieto MD Morphology [place] (Bld) [Interp] ANISOCYTOSIS PRESENT Normal [facility] Comment on above: Performed By: #### U RC #### [address] [address] County Administrator: Rafa Prieto MD Neutrophil (Seg) 64 % Normal 36-66 [facility] Comment on above: Performed By: #### U RC #### [address] [address] County Administrator: Rafa Prieto MD Erythrocyte distribution width (RBC) [Ratio] 16.6 % High 11.8-14.4 [facility] Comment on above: Performed By: #### U RC #### [address] [address] County Administrator: Rafa Prieto MD Hematocrit (Bld) [Volume fraction] 38.6 % Low 40.7-50.3 [facility] Comment on above: Performed By: #### U RC #### [address] [address] County Administrator: Rafa Prieto MD Hemoglobin (Bld) [Mass/Vol] 10.9 g/dL Low 13.0-17.0 [facility] Comment on above: Performed By: #### U RC #### [address] [address] County Administrator: Rafa Prieto MD MCH (RBC) [Entitic mass] 24.0 pg Low 25.2-33.5 [facility] Comment on above: Performed By: #### U RC #### [address] [address] County Administrator: Rafa Prieto MD MCHC (RBC) [Mass/Vol] 28.2 g/dL Low 28.4-34.8 [facility] Comment on above: Result Comment: TEST CONFIRMED Performed By: #### U RC #### [place] [address] County Administrator: Rafa Prieto MD MCV (RBC) [Entitic vol] 85.0 fL Normal 82.6-102.9 [facility] Comment on above: Performed By: #### U RC #### [address] [address] County Administrator: Rafa Prieto MD NRBC Automated 0.0 per 100 WBC Normal 0.0 [facility] Comment on above: Performed By: #### U RC #### [address] [address] County Administrator: Rafa Prieto MD Platelet mean volume (Bld) [Entitic vol] 11.9 fL Normal 8.1-13.5 [facility] Comment on above: Performed By: #### U RC #### [address] [address] County Administrator: Rafa Prieto MD Platelets (Bld) [#/Vol] 192 10*3/uL Normal 138-453 [facility] Comment on above: Performed By: #### U RC #### [address] [place] [address] County Administrator: Rafa Prieto MD RBC (Bld) [#/Vol] 4.54 10*6/uL Normal 4.21-5.77 [facility] Comment on above: Performed By: #### U RC #### [address] [address] County Administrator: Rafa Prieto MD WBC (Bld) [#/Vol] 7.8 10*3/uL Normal 3.5-11.3 [facility] Comment on above: Performed By: #### U RC #### [address] [address] County Administrator: Rafa Prieto MD Glucose,Whole Bloodon 2023 Glucose [Mass/Vol] 147 mg/dL High 75-110 [facility] Glucose [Mass/Vol] 178 mg/dL High 75-110 [facility] Glucose [Mass/Vol] 158 mg/dL High 75-110 [facility] Glucose [Mass/Vol] 106 mg/dL Normal 75-110 [facility] Heparin Anti-Xaon 01-05-2024 Heparin Anti-Xa 0.41 IU/L Normal [facility] Comment on above: Performed By: #### U RC #### [address] [address] County Administrator: Rafa Prieto MD Basic Metab w/rfx MGon 01-04 Anion gap [Moles/Vol] 8 mmol/L Low 9-17 [facility] Comment on above: Performed By: #### H EPXA, PTT #### [address] [address] County Administrator: Rafa Prieto MD Calcium [Mass/Vol] 7.7 mg/dL Low 8.6-10.4 [facility] Comment on above: Performed By: #### H EPXA, PTT #### [facility] [address] [place] [address] County Administrator: Rafa Prieto MD Chloride [Moles/Vol] 98 mmol/L Normal 98-107 [facility] Comment on above: Performed By: #### H EPXA, PTT #### [facility] [address] [place] [address] County Administrator: Rafa Prieto MD CO2 [Moles/Vol] 26 mmol/L Normal 20-31 [facility] Comment on above: Performed By: #### H EPXA, PTT #### [facility] [address] [place] [address] County Administrator: Rafa Prieto MD Creatinine [Mass/Vol] 0.6 mg/dL Low 0.7-1.2 [facility] Comment on above: Performed By: #### H EPXA, PTT #### [address] [address] County Administrator: Rafa Prieto MD GFR/1.73 sq M.predicted among non-blacks MDRD (S/P/Bld) [Vol rate/Area] mL/min/{1.73_m2} Normal >60 [facility] Comment on above: Result Comment: These [...] Performed By: #### H EPXA, PTT #### [facility] [address] [place] [address] County Administrator: Rafa Prieto MD Glucose [Mass/Vol] 94 mg/dL Normal 70-99 [facility] Comment on above: Performed By: #### H EPXA, PTT #### [facility] [address] [place] [address] County Administrator: Rafa Prieto MD Potassium [Moles/Vol] 3.9 mmol/L Normal 3.7-5.3 [facility] Comment on above: Performed By: #### H EPXA, PTT #### [facility] [address] [place] [address] County Administrator: Rafa Prieto MD Sodium [Moles/Vol] 132 mmol/L Low 135-144 [facility] Comment on above: Performed By: #### H EPXA, PTT #### [facility] [address] [place] [address] County Administrator: Rafa Prieto MD Urea nitrogen [Mass/Vol] 12 mg/dL Normal 6-20 [facility] Comment on above: Performed By: #### H EPXA, PTT #### [facility] [address] [place] [address] County Administrator: Rafa Prieto MD CBC with Diffon 01-04-2024 Abs. Basophil 0.04 k/uL Normal 0.00-0.20 [facility] Comment on above: Performed By: #### H EPXA, PTT #### [facility] [address] [place] [address] County Administrator: Rafa Prieto MD Abs.Imm.Granulocyte 0.04 k/uL Normal 0.00-0.30 [facility] Comment on above: Performed By: #### H EPXA, PTT #### [facility] [address] [place] [address] County Administrator: Rafa Prieto MD Abs.Neutrophil (Seg) 5.71 k/uL Normal 1.50-8.10 [facility] Comment on above: Performed By: #### H EPXA, PTT #### [facility] [address] [place] [address] County Administrator: Rafa Prieto MD Basophils/100 WBC (Bld) 0 % Normal 0-2 [facility] Comment on above: Performed By: #### H EPXA, PTT #### [facility] [address] [place] [address] County Administrator: Rafa Prieto MD Eosinophils (Bld) [#/Vol] 0.30 10*3/uL Normal 0.00-0.44 [facility] Comment on above: Performed By: #### H EPXA, PTT #### [facility] [address] [place] [address] County Administrator: Rafa Prieto MD Eosinophils/100 WBC (Bld) 3 % Normal 1-4 [facility] Comment on above: Performed By: #### H EPXA, PTT #### [facility] [address] [place] [address] County Administrator: Rafa Prieto MD Erythrocyte distribution width (RBC) [Ratio] 16.1 % High 11.8-14.4 [facility] Comment on above: Performed By: #### H EPXA, PTT #### [facility] [address] [place] [address] County Administrator: Rafa Prieto MD Hematocrit (Bld) [Volume fraction] 36.0 % Low 40.7-50.3 [facility] Comment on above: Performed By: #### H EPXA, PTT #### [facility] [address] [place] [address] County Administrator: Rafa Prieto MD Hemoglobin (Bld) [Mass/Vol] 10.5 g/dL Low 13.0-17.0 [facility] Comment on above: Performed By: #### H EPXA, PTT #### [facility] [address] [place] [address] County Administrator: Rafa Prieto MD Immature granulocytes/100 WBC (Bld) 0 % Normal 0 [facility] Comment on above: Performed By: #### H EPXA, PTT #### [address] [address] County Administrator: Rafa Prieto MD Lymphocytes (Bld) [#/Vol] 1.76 10*3/uL Normal 1.10-3.70 [facility] Comment on above: Performed By: #### H EPXA, PTT #### [address] [address] County Administrator: Rafa Prieto MD Lymphocytes/100 WBC (Bld) 20 % Low 24-43 [facility] Comment on above: Performed By: #### H EPXA, PTT #### [address] [address] County Administrator: Rafa Prieto MD MCH (RBC) [Entitic mass] 24.1 pg Low 25.2-33.5 [facility] Comment on above: Performed By: #### H EPXA, PTT #### [facility] [address] [place] [address] County Administrator: Rafa Prieto MD MCHC (RBC) [Mass/Vol] 29.2 g/dL Normal 28.4-34.8 [facility] Comment on above: Performed By: #### H EPXA, PTT #### [facility] [address] [place] [address] County Administrator: Rafa Prieto MD MCV (RBC) [Entitic vol] 82.8 fL Normal 82.6-102.9 [facility] Comment on above: Performed By: #### H EPXA, PTT #### [address] [address] County Administrator: Rafa Prieto MD Monocytes (Bld) [#/Vol] 1.12 10*3/uL Normal 0.10-1.20 [facility] Comment on above: Performed By: #### H EPXA, PTT #### [address] [address] County Administrator: Rafa Prieto MD Monocytes/100 WBC (Bld) 13 % High 3-12 [facility] Comment on above: Performed By: #### H EPXA, PTT #### [address] [address] County Administrator: Rafa Prieto MD Neutrophil (Seg) 64 % Normal 36-65 [facility] Comment on above: Performed By: #### H EPXA, PTT #### [address] [address] County Administrator: Rafa Prieto MD NRBC Automated 0.0 per 100 WBC Normal 0.0 [facility] Comment on above: Performed By: #### H EPXA, PTT #### [address] [address] County Administrator: Rafa Prieto MD Platelet mean volume (Bld) [Entitic vol] 11.1 fL Normal 8.1-13.5 [facility] Comment on above: Performed By: #### H EPXA, PTT #### [address] [address] County Administrator: Rafa Prieto MD Platelets (Bld) [#/Vol] 207 10*3/uL Normal 138-453 [facility] Comment on above: Performed By: #### H EPXA, PTT #### [address] [address] County Administrator: Rafa Prieto MD RBC (Bld) [#/Vol] 4.35 10*6/uL Normal 4.21-5.77 [facility] Comment on above: Performed By: #### H EPXA, PTT #### [employer] [address] [place] [address] County Administrator: Rafa Prieto MD RBC morphology finding Nom (Bld) ANISOCYTOSIS PRESENT Normal [facility] Comment on above: Performed By: #### H EPXA, PTT #### [facility] [address] [place] [address] County Administrator: Rafa Prieto MD WBC (Bld) [#/Vol] 9.0 10*3/uL Normal 3.5-11.3 [facility] Comment on above: Performed By: #### H EPXA, PTT #### [employer] [address] [place] [address] County Administrator: Rafa Prieto MD Glucose,Whole Bloodon 2023 Glucose [Mass/Vol] 143 mg/dL High 75-110 [facility] Glucose [Mass/Vol] 150 mg/dL High 75-110 [facility] Hemoglobin A1Con 01-04-2024 Glucose [Mass/Vol] 140 mg/dL Normal [facility] Comment on above: Result Comment: The ADA and AACC recommend providing the estimated average glucose result to permit better patient understanding of their HBA1c result. Performed By: #### H EPXA, PTT #### [employer] [address] [place] [address] County Administrator: Rafa Prieto MD HbA1c (Bld) [Mass fraction] 6.5 % High 4.0-6.0 [facility] [facility] Comment on above: Performed By: #### H EPXA, PTT #### [employer] [address] [place] [address] County Administrator: Rafa Prieto MD Heparin Anti-Xaon 01-04-2024 Heparin Anti-Xa 0.53 IU/L Normal [facility] Comment on above: Performed By: #### T ROPI #### [employer] [address] [place] [address] County Administrator: Rafa Prieto MD Heparin Anti-Xa 0.65 IU/L Normal [facility] Comment on above: Performed By: #### U RC #### [facility] [address] [place] [address]39 County Administrator: Rafa Prieto MD Heparin Anti-Xa 0.29 IU/L Normal [facility] Comment on above: Performed By: #### H EPXA, PTT #### [facility] [address] [place] [address] 9[address]67 County Administrator: Rafa Prieto MD Basic Metab w/rfx MGon 01-03 Anion gap [Moles/Vol] 8 mmol/L Low 9-17 [facility] Comment on above: Performed By: #### H EPXA, PTT #### [facility] [address] [place] [address] 64656 County Administrator: Rafa Prieto MD Calcium [Mass/Vol] 7.8 mg/dL Low 8.6-10.4 [facility] Comment on above: Performed By: #### H EPXA, PTT #### [facility] [address] [place] [address] 28539 County Administrator: Rafa Prieto MD Chloride [Moles/Vol] 94 mmol/L Low 98-107 [facility] Comment on above: Performed By: #### H EPXA, PTT #### [facility] [address] [place] [address] 02541 County Administrator: Rafa Prieto MD CO2 [Moles/Vol] 25 mmol/L Normal 20-31 [facility] Comment on above: Performed By: #### H EPXA, PTT #### [facility] [address] [place] [address] 98327 County Administrator: Rafa Prieto MD Creatinine [Mass/Vol] 0.6 mg/dL Low 0.7-1.2 [facility] Comment on above: Performed By: #### H EPXA, PTT #### [employer] [address] [place] [address] 13[address] County Administrator: Rafa Prieto MD GFR/1.73 sq M.predicted among non-blacks MDRD (S/P/Bld) [Vol rate/Area] mL/min/{1.73_m2} Normal >60 [facility] Comment on above: Result Comment: These [...] Performed By: #### H EPXA, PTT #### [employer] [address] [place] [address] 36217 County Administrator: Rafa Prieto MD Glucose [Mass/Vol] 108 mg/dL High 70-99 [facility] Comment on above: Performed By: #### H EPXA, PTT #### [facility] [address] [place] [address] 6[address] County Administrator: Rafa Prieto MD Potassium [Moles/Vol] 3.7 mmol/L Normal 3.7-5.3 [facility] Comment on above: Performed By: #### H EPXA, PTT #### [employer] [address] [place] [address] 85781 County Administrator: Rafa Prieto MD Sodium [Moles/Vol] 127 mmol/L Low 135-144 [facility] Comment on above: Performed By: #### H EPXA, PTT #### [employer] [address] [place] [address] 31633 County Administrator: Rafa Prieto MD Urea nitrogen [Mass/Vol] 15 mg/dL Normal 6-20 [facility] Comment on above: Performed By: #### H EPXA, PTT #### [facility] [place] [address] County Administrator: Rafa Prieto MD Brain Natri. Peptideon 01-03 Natriuretic peptide B (Bld) [Mass/Vol] 1253 pg/mL High <300 [facility] Comment on above: Result Comment: An age-independent cutoff point of 300 pg/ml has a 98% negative predictive value excluding acute heart failure. Performed By: #### H EPXA, BNP, TROPI ####[facility] [address] [place] [address])[phone] Director: Rafa Prieto MD CBC with Diffon 3 Abs. Basophil 0.05 k/uL Normal 0.00-0.20 [facility] Comment on above: Performed By: #### H EPXA, PTT #### [facility] [address] [place] [address] 58394 County Administrator: Rafa Prieto MD Abs.Imm.Granulocyte <0.03 Normal 0.00-0.30 [facility] Comment on above: Performed By: #### H EPXA, PTT #### [facility] [address] [place] [address] 36068 County Administrator: Rafa Prieto MD Abs.Neutrophil (Seg) 4.63 k/uL Normal 1.50-8.10 [facility] Comment on above: Performed By: #### H EPXA, PTT #### [facility] [address] [place] [address] 96576 County Administrator: Rafa Prieto MD Basophils/100 WBC (Bld) 1 % Normal 0-2 [facility] Comment on above: Performed By: #### H EPXA, PTT #### [facility] [address] [place] [address] 18192 County Administrator: Rafa Prieto MD Eosinophils (Bld) [#/Vol] 0.23 10*3/uL Normal 0.00-0.44 [facility] Comment on above: Performed By: #### H EPXA, PTT #### [address] [address] County Administrator: Rafa Prieto MD Eosinophils/100 WBC (Bld) 3 % Normal 1-4 [facility] Comment on above: Performed By: #### H EPXA, PTT #### [facility] [address] [place] [address] 94165 County Administrator: Rafa Prieto MD Erythrocyte distribution width (RBC) [Ratio] 16.2 % High 11.8-14.4 [facility] Comment on above: Performed By: #### H EPXA, PTT #### [address] [address] County Administrator: Rafa Prieto MD Hematocrit (Bld) [Volume fraction] 37.7 % Low 40.7-50.3 [facility] Comment on above: Performed By: #### H EPXA, PTT #### [address] [address] County Administrator: Rafa Prieto MD Hemoglobin (Bld) [Mass/Vol] 10.9 g/dL Low 13.0-17.0 [facility] Comment on above: Performed By: #### H EPXA, PTT #### [address] [address] County Administrator: Rafa Prieto MD Immature granulocytes/100 WBC (Bld) 0 % Normal 0 [facility] Comment on above: Performed By: #### H EPXA, PTT #### [facility] [address] [place] [address] 41282 County Administrator: Rafa Prieto MD Lymphocytes (Bld) [#/Vol] 1.96 10*3/uL Normal 1.10-3.70 [facility] Comment on above: Performed By: #### H EPXA, PTT #### [address] [address] County Administrator: Rafa Prieto MD Lymphocytes/100 WBC (Bld) 24 % Normal 24-43 [facility] Comment on above: Performed By: #### H EPXA, PTT #### [address] [address] County Administrator: Rafa Prieto MD MCH (RBC) [Entitic mass] 24.2 pg Low 25.2-33.5 [facility] Comment on above: Performed By: #### H EPXA, PTT #### [address] [address] County Administrator: Rafa Prieto MD MCHC (RBC) [Mass/Vol] 28.9 g/dL Normal 28.4-34.8 [facility] Comment on above: Performed By: #### H EPXA, PTT #### [address] [address] County Administrator: Rafa Prieto MD MCV (RBC) [Entitic vol] 83.6 fL Normal 82.6-102.9 [facility] Comment on above: Performed By: #### H EPXA, PTT #### [address] [address] County Administrator: Rafa Prieto MD Monocytes (Bld) [#/Vol] 1.23 10*3/uL High 0.10-1.20 [facility] Comment on above: Performed By: #### H EPXA, PTT #### [address] [address] County Administrator: Rafa Prieto MD Monocytes/100 WBC (Bld) 15 % High 3-12 [facility] Comment on above: Performed By: #### H EPXA, PTT #### [facility] [address] [place] [address] 83986 County Administrator: Rafa Prieto MD Neutrophil (Seg) 57 % Normal 36-65 [facility] Comment on above: Performed By: #### H EPXA, PTT #### [facility] [address] [place] [address] 71441 County Administrator: Rafa Prieto MD NRBC Automated 0.0 per 100 WBC Normal 0.0 [facility] Comment on above: Performed By: #### H EPXA, PTT #### [facility] [address] [place] [address] 02393 County Administrator: Rafa Prieto MD Platelet mean volume (Bld) [Entitic vol] 10.8 fL Normal 8.1-13.5 [facility] Comment on above: Performed By: #### H EPXA, PTT #### [facility] [address] [place] [address]213 County Administrator: Rafa Prieto MD Platelets (Bld) [#/Vol] 194 10*3/uL Normal 138-453 [facility] Comment on above: Performed By: #### H EPXA, PTT #### [address] [address] County Administrator: Rafa Prieto MD RBC (Bld) [#/Vol] 4.51 10*6/uL Normal 4.21-5.77 [facility] Comment on above: Performed By: #### H EPXA, PTT #### [address] [address] County Administrator: Rafa Prieto MD RBC morphology finding Nom (Bld) ANISOCYTOSIS PRESENT Normal [facility] Comment on above: Performed By: #### H EPXA, PTT #### [facility] [address] [place] [address] 31559 County Administrator: Rafa rPieto MD WBC (Bld) [#/Vol] 8.1 10*3/uL Normal 3.5-11.3 [facility] Comment on above: Performed By: #### H EPXA, PTT #### [facility] [address] [place] [address] 21144 County Administrator: Rafa Prieto MD Glucose,Whole Bloodon 2023 Glucose [Mass/Vol] 143 mg/dL High 75-110 [facility] Glucose [Mass/Vol] 107 mg/dL Normal 75-110 [facility] Heparin Anti-Xaon 01-03-2024 Heparin Anti-Xa 0.48 IU/L Normal [facility] Comment on above: Performed By: #### H EPXA, BNP, TROPI ####[address] [address] Lab Director: Rafa Prieto MD Osmolalityon 01-03-2024 Osmolality [Osmolality] 280 mosm/kg Normal 275-295 [facility] Comment on above: Performed By: #### O SMO, REJEC ####[address] [address] Lab Director: Rafa Prieto MD Osmolality, Urineon 01-03-20 24 Osmolality - Urine 293 mOsm/kg Normal 80-1300 [facility] Comment on above: Performed By: #### U RC #### [facility] [address] [place] [address] 6[address]31 County Administrator: Rafa Prieto MD Sodium, Random Uron 01-03-20 24 Na Conc. Urine <20 Normal [facility] Comment on above: Result Comment: No n ormal range established. Performed By: #### U RC #### [facility] [address] [place] [address]646 County Administrator: Rafa Prieto MD Specimen Rejectionon 024 Reason for rejection Unable to perform testing: Specimen quantity not sufficient. Normal [facility] Comment on above: Performed By: #### O SMO, REJEC ####[facility] [address] [place] [address] Lab Director: Rafa Prieto MD Source of sample .BLOOD Normal [facility] Comment on above: Performed By: #### O SMO, REJEC ####[facility] [address] [place] [address] Lab Director: Rafa Prieto MD Test ordered BNP TROPI Normal [facility] Comment on above: Performed By: #### O SMO, REJEC ####[facility] [address] [place] [address] lab Director: Rafa Prieto MD Troponinon 01-03-2024 Troponin, High Sens 57 ng/L Critically high 0-22 [facility] Comment on above: Result Comment: High Sensitivity Troponin values cannot be compared with other Troponin methodologies. Performed By: #### U RC #### [facility] [address] [place] [address] County Administrator: Rafa Prieto MD XR CHEST PORTABLEon 01-03-20 [...] Samir Infante MD 01/03/24 Final result Normal [facility] Arterial Bld Gas,POCon 01-02 Rao Test Positive Normal [facility] HCO3 (Bld) [Moles/Vol] 30.0 mmol/L High 21.0-28.0 [facility] Oxygen saturation in Blood 93.2 % Low 94.0-98.0 [facility] Patient Temp. 37.7 Normal [facility] pCO2, Arterial 53.1 mm Hg High 35.0-48.0 [facility] pCO2, Temp Adjust 54.7 mm Hg Normal [facility] pH, Arterial 7.361 Normal 7.350-7.450 [facility] pH, Temp Adjust 7.350 Normal [facility] pO2, Arterial 71.8 mm Hg Low 83.0-108.0 [facility] pO2, Temp Adjust 75.2 mm Hg Normal [facility] Positive Base Excess (calc) 3.3 mmol/L High 0.0-3.0 [facility] Site Drawn Left Radial Artery Normal [facility] Basic Metab w/rfx MGon 01-02 Anion gap [Moles/Vol] 9 mmol/L Normal 9-17 [facility] Comment on above: Performed By: #### H EPXA, PTT #### [employer] [address] [place] [address] 42544 County Administrator: Rafa Prieto MD Calcium [Mass/Vol] 8.0 mg/dL Low 8.6-10.4 [facility] Comment on above: Performed By: #### H EPXA, PTT #### [employer] [employer] [facility] [place] [address] County Administrator: Rafa Prieto MD Chloride [Moles/Vol] 100 mmol/L Normal 98-107 [facility] Comment on above: Performed By: #### H EPXA, PTT #### [employer] [address] [place] [address] County Administrator: Rafa Prieto MD CO2 [Moles/Vol] 26 mmol/L Normal 20-31 [facility] Comment on above: Performed By: #### H EPXA, PTT #### [employer] [address] [place] [address] 20098 County Administrator: Rafa Prieto MD Creatinine [Mass/Vol] 0.7 mg/dL Normal 0.7-1.2 [facility] Comment on above: Performed By: #### H EPXA, PTT #### [facility] [address] [place] [address] 7[address]91 County Administrator: Rafa Prieto MD GFR/1.73 sq M.predicted among non-blacks MDRD (S/P/Bld) [Vol rate/Area] mL/min/{1.73_m2} Normal >60 [facility] Comment on above: Result Comment: These [...] Performed By: #### H EPXA, PTT #### [email or web address] [address] [place] [address] 56090 County Administrator: Rafa Prieto MD Glucose [Mass/Vol] 110 mg/dL High 70-99 [facility] Comment on above: Performed By: #### H EPXA, PTT #### [employer] [address] [place] [address] 55774 County Administrator: Rafa Prieto MD Potassium [Moles/Vol] 3.9 mmol/L Normal 3.7-5.3 [facility] Comment on above: Performed By: #### H EPXA, PTT #### [facility] [address] [place] [address]60 County Administrator: Rafa Prieto MD Sodium [Moles/Vol] 135 mmol/L Normal 135-144 [facility] Comment on above: Performed By: #### H EPXA, PTT #### [facility] [address] [place] [address] 97499 County Administrator: Rafa Prieto MD Urea nitrogen [Mass/Vol] 15 mg/dL Normal 6-20 [facility] Comment on above: Performed By: #### H EPXA, PTT #### [facility] [address] [place] [address] 54096 County Administrator: Rafa Prieto MD CBC with Diffon 01-02-2024 Abs. Basophil 0.00 k/uL Normal 0.0-0.2 [facility] Comment on above: Performed By: #### H EPXA, PTT #### [facility] [address] [place] [address]29 County Administrator: Rafa Prieto MD Abs.Imm.Granulocyte 0.00 k/uL Normal 0.00-0.30 [facility] Comment on above: Performed By: #### H EPXA, PTT #### [facility] [address] [place] [address] 61441 County Administrator: Rafa Prieto MD Abs.Neutrophil (Seg) 4.48 k/uL Normal 1.8-7.7 [facility] Comment on above: Performed By: #### H EPXA, PTT #### [facility] [address] [place] [address] County Administrator: Rafa Prieto MD Basophils/100 WBC (Bld) 0 % Normal 0-2 [facility] Comment on above: Performed By: #### H EPXA, PTT #### [facility] [address] [place] [address] 94070 County Administrator: Rafa Prieto MD Eosinophils (Bld) [#/Vol] 0.08 10*3/uL Normal 0.0-0.4 [facility] Comment on above: Performed By: #### H EPXA, PTT #### [facility] [address] [place] [address]40 County Administrator: Rafa Prieto MD Eosinophils/100 WBC (Bld) 1 % Normal 1-4 [facility] Comment on above: Performed By: #### H EPXA, PTT #### [address] [address] County Administrator: Rafa Prieto MD Immature granulocytes/100 WBC (Bld) 0 % Normal 0 [facility] Comment on above: Performed By: #### H EPXA, PTT #### [facility] [address] [place] [address]398 County Administrator: Rafa Prieto MD Lymphocytes (Bld) [#/Vol] 1.76 10*3/uL Normal 1.0-4.8 [facility] Comment on above: Performed By: #### H EPXA, PTT #### [address] [address] County Administrator: Rafa Prieto MD Lymphocytes/100 WBC (Bld) 22 % Low 24-44 [facility] Comment on above: Performed By: #### H EPXA, PTT #### [address] [address] County Administrator: Rafa Prieto MD Monocytes (Bld) [#/Vol] 1.68 10*3/uL High 0.1-0.8 [facility] Comment on above: Performed By: #### H EPXA, PTT #### [address] [address] County Administrator: Rafa Prieto MD Monocytes/100 WBC (Bld) 21 % High 1-7 [facility] Comment on above: Performed By: #### H EPXA, PTT #### [facility] [address] [place] [address] County Administrator: Rafa Priteo MD Morphology Rancho (Bld) [Interp] ANISOCYTOSIS PRESENT Normal [facility] Comment on above: Performed By: #### H EPXA, PTT #### [address] [address] County Administrator: Rafa Prieto MD Neutrophil (Seg) 56 % Normal 36-66 [facility] Comment on above: Performed By: #### H EPXA, PTT #### [address] [address] County Administrator: Rafa Prieto MD Erythrocyte distribution width (RBC) [Ratio] 15.9 % High 11.8-14.4 [facility] Comment on above: Performed By: #### H EPXA, PTT #### [address] [address] County Administrator: Rafa Prieto MD Hematocrit (Bld) [Volume fraction] 40.7 % Normal 40.7-50.3 [facility] Comment on above: Performed By: #### H EPXA, PTT #### [address] [address] County Administrator: Rafa Prieto MD Hemoglobin (Bld) [Mass/Vol] 11.6 g/dL Low 13.0-17.0 [facility] Comment on above: Performed By: #### H EPXA, PTT #### [address] [address] County Administrator: Rafa Prieto MD MCH (RBC) [Entitic mass] 24.0 pg Low 25.2-33.5 [facility] Comment on above: Performed By: #### H EPXA, PTT #### [address] [address] County Administrator: Rafa Prieto MD MCHC (RBC) [Mass/Vol] 28.5 g/dL Normal 28.4-34.8 [facility] Comment on above: Performed By: #### H EPXA, PTT #### [facility] [address] [place] [address] County Administrator: Rafa Prieto MD MCV (RBC) [Entitic vol] 84.1 fL Normal 82.6-102.9 [facility] Comment on above: Performed By: #### H EPXA, PTT #### [address] [address] County Administrator: Rafa Prieto MD NRBC Automated 0.0 per 100 WBC Normal 0.0 [facility] Comment on above: Performed By: #### H EPXA, PTT #### [address] [address] County Administrator: Rafa Prieto MD Platelet mean volume (Bld) [Entitic vol] 11.1 fL Normal 8.1-13.5 [facility] Comment on above: Performed By: #### H EPXA, PTT #### [address] [address] County Administrator: Rafa Prieto MD Platelets (Bld) [#/Vol] 212 10*3/uL Normal 138-453 [facility] Comment on above: Performed By: #### H EPXA, PTT #### [address] [address] County Administrator: Rafa Prieto MD RBC (Bld) [#/Vol] 4.84 10*6/uL Normal 4.21-5.77 [facility] Comment on above: Performed By: #### H EPXA, PTT #### [address] [address] County Administrator: Rafa Prieto MD WBC (Bld) [#/Vol] 8.0 10*3/uL Normal 3.5-11.3 [facility] Comment on above: Performed By: #### H EPXA, PTT #### [address] [address] County Administrator: Rafa Prieto MD Glucose (POC)on 01-02-2024 Glucose [Mass/Vol] 116 mg/dL High 74-100 [facility] Glucose,Whole Bloodon 2023 Glucose [Mass/Vol] 165 mg/dL High 75-110 [facility] Glucose [Mass/Vol] 209 mg/dL High 75-110 [facility] Glucose [Mass/Vol] 115 mg/dL High 75-110 [facility] Glucose [Mass/Vol] 78 mg/dL Normal 75-110 [facility] Heparin Anti-Xaon 01-02-2024 Heparin Anti-Xa 0.55 IU/L Normal [facility] Comment on above: Performed By: #### H EPXA, PTT #### [employer] [address] [place] [address] [id number] County Administrator: Rafa Prieto MD Heparin Anti-Xa 0.63 IU/L Normal [facility] Comment on above: Performed By: #### H EPXA ####[employer] [place] [address] Lab Director: Rafa Prieto MD APTTon 01-01-2024 aPTT Coag (Bld) [Time] 123.5 s Critically high 23.0-36.5 [facility] Comment on above: Result Comment: IV Heparin Therapy Range: 66.0-92.0 sec Performed By: #### H EPXA, PTT #### [employer] [address] [place] [address] County Administrator: Rafa Prieto MD aPTT Coag (Bld) [Time] 82.0 s High 23.0-36.5 [facility] Comment on above: Result Comment: IV Heparin Therapy Range: 66.0-92.0 sec Performed By: #### H EPXA, PTT #### [facility] [address] [place] [address] County Administrator: Rafa Prieto MD aPTT Coag (Bld) [Time] 122.3 s Critically high 23.0-36.5 [facility] Comment on above: Result Comment: IV Heparin Therapy Range: 66.0-92.0 sec Performed By: #### T ROPI #### [facility] [address] [place], [place] [phone] County Administrator: Rafa Prieto MD Basic Metab w/rfx MGon 01-01 Creatinine [Mass/Vol] 0.8 mg/dL Normal 0.7-1.2 [facility] Comment on above: Result Comment: ICTE MANSOOR SPECIMEN Performed By: #### B MPX, CDP, TROPI, MG ####[facility] [place] [address] Lab Director: Rafa Prieto MD GFR/1.73 sq M.predicted among non-blacks MDRD (S/P/Bld) [Vol rate/Area] mL/min/{1.73_m2} Normal >60 [facility] Comment on above: Result Comment: These [...] By: #### B MPX, CDP, TROPI, MG ####[employer] [place] [address] Lab Director: Rafa Prieto MD Potassium [Moles/Vol] 3.5 mmol/L Low 3.7-5.3 [facility] Comment on above: Performed By: #### B MPX, CDP, TROPI, MG ####[employer] [place], [place] [phone] Lab Director: Rafa Prieto MD Anion gap [Moles/Vol] 13 mmol/L Normal 9-17 [facility] Comment on above: Performed By: #### B MPX, CDP, TROPI, MG ####[facility] [address] [place] [address] Lab Director: Rafa Prieto MD Calcium [Mass/Vol] 8.3 mg/dL Low 8.6-10.4 [facility] Comment on above: Performed By: #### B MPX, CDP, TROPI, MG ####[facility] [address] [place], [place] [phone])[phone] Director: Rafa Prieto MD Chloride [Moles/Vol] 99 mmol/L Normal 98-107 [facility] Comment on above: Performed By: #### B MPX, CDP, TROPI, MG ####[facility] [address] [place], [place] [phone] Director: Rafa Prieto MD CO2 [Moles/Vol] 25 mmol/L Normal 20-31 [facility] Comment on above: Performed By: #### B MPX, CDP, TROPI, MG ####[facility] [address] [place], [place] [address])[phone] Director: Rafa Prieto MD Glucose [Mass/Vol] 89 mg/dL Normal 70-99 [facility] Comment on above: Performed By: #### B MPX, CDP, TROPI, MG ####[facility] [address] [place] [address] Lab Director: Rafa Prieto MD Sodium [Moles/Vol] 137 mmol/L Normal 135-144 [facility] Comment on above: Performed By: #### B MPX, CDP, TROPI, MG ####[facility] [address] [place], [place] [id number])[phone] Director: Rafa Prieto MD Urea nitrogen [Mass/Vol] 20 mg/dL Normal 6-20 [facility] Comment on above: Performed By: #### B MPX, CDP, TROPI, MG ####[facility] [address] [place], [place] 1886108 Lab Director: Rafa Prieto MD Basic Metabolic Profon 01-01 Creatinine [Mass/Vol] 0.7 mg/dL Normal 0.7-1.2 [facility] Comment on above: Result Comment: ICTE [place] SPECIMEN Performed By: #### T JOSEY #### [facility] [address] [place] [address] County Administrator: Rafa Prieto MD GFR/1.73 sq M.predicted among non-blacks MDRD (S/P/Bld) [Vol rate/Area] mL/min/{1.73_m2} Normal >60 [facility] Comment on above: Result Comment: These [...] secretion. Performed By: #### T JOSEY #### [address] [address] County Administrator: Rafa Prieto MD Anion gap [Moles/Vol] 12 mmol/L Normal 9-17 [facility] Comment on above: Performed By: #### T JOSEY #### [facility] [address] [place] [address] County Administrator: Rafa Prieto MD Calcium [Mass/Vol] 8.3 mg/dL Low 8.6-10.4 [facility] Comment on above: Performed By: #### T JOSEY #### [facility] [address] [place] [address] County Administrator: Rafa Prieto MD Chloride [Moles/Vol] 98 mmol/L Normal 98-107 [facility] Comment on above: Performed By: #### T ROPI #### [facility] [place] [address] County Administrator: Rafa Prieto MD CO2 [Moles/Vol] 25 mmol/L Normal 20-31 [facility] Comment on above: Performed By: #### T ROPI #### [facility] [address] [place] [address] County Administrator: Rafa Prieto MD Glucose [Mass/Vol] 125 mg/dL High 70-99 [facility] Comment on above: Performed By: #### T ROPI #### [facility] [address] [place] [address] County Administrator: Rafa Prieto MD Potassium [Moles/Vol] 3.6 mmol/L Low 3.7-5.3 [facility] Comment on above: Performed By: #### T ROPI #### [facility] [address] [place] [address] County Administrator: Rafa Prieto MD Sodium [Moles/Vol] 135 mmol/L Normal 135-144 [facility] Comment on above: Performed By: #### T ROPI #### [facility] [address] [place] [address] County Administrator: Rafa Prieto MD Urea nitrogen [Mass/Vol] 22 mg/dL High 6-20 [facility] Comment on above: Performed By: #### T ROPI #### [facility] [address] [place] [address] County Administrator: Rafa Prieto MD Brain Natri. Peptideon 01-01 Natriuretic peptide B (Bld) [Mass/Vol] 2437 pg/mL High <300 [facility] Comment on above: Result Comment: An age-independent cutoff point of 300 pg/ml has a 98% negative predictive value excluding acute heart failure. Performed By: #### T ROPI #### [facility] [address] [place] [address] County Administrator: Rafa Prieto MD CBC with Diffon 01-01-2024 Abs. Basophil 0.00 k/uL Normal 0.00-0.20 [facility] Comment on above: Performed By: #### B MPX, CDP, TROPI, MG ####[facility] [address] [place], [place] [address])[phone] Director: Rafa Prieto MD Abs.Imm.Granulocyte 0.00 k/uL Normal 0.00-0.30 [facility] Comment on above: Performed By: #### B MPX, CDP, TROPI, MG ####[facility] [address] [place], [place] [address])[phone] Director: Rafa Prieto MD Abs.Neutrophil (Seg) 4.00 k/uL Normal 1.50-8.10 [facility] Comment on above: Performed By: #### B MPX, CDP, TROPI, MG ####[facility] [address] [place], [place] [address])[phone] Director: Rafa Prieto MD Basophils/100 WBC (Bld) 0 % Normal 0-2 [facility] Comment on above: Performed By: #### B MPX, CDP, TROPI, MG ####[facility] [address] [place] [address])[phone] Director: Rafa Prieto MD Eosinophils (Bld) [#/Vol] 0.00 10*3/uL Normal 0.00-0.44 [facility] Comment on above: Performed By: #### B MPX, CDP, TROPI, MG ####[facility] [address] [place], [place] [address])[phone] Director: Rafa Prieto MD Eosinophils/100 WBC (Bld) 0 % Low 1-4 [facility] Comment on above: Performed By: #### B MPX, CDP, TROPI, MG ####[facility] [address] [place], [place] [id number])[phone] Director: Rafa Prieto MD Immature granulocytes/100 WBC (Bld) 0 % Normal 0 [facility] Comment on above: Performed By: #### B MPX, CDP, TROPI, MG ####[facility] [address] [place], [place] [id number])[phone] Director: Rafa Prieto MD Lymphocytes (Bld) [#/Vol] 1.70 10*3/uL Normal 1.10-3.70 [facility] Comment on above: Performed By: #### B MPX, CDP, TROPI, MG ####[facility] [address] [place] [address] Lab Director: Rafa Prieto MD Lymphocytes/100 WBC (Bld) 23 % Low 24-43 [facility] Comment on above: Performed By: #### B MPX, CDP, TROPI, MG ####[facility] [address] [place], [place] [phone] Director: Rafa Prieto MD Monocytes (Bld) [#/Vol] 1.70 10*3/uL High 0.10-1.20 [facility] Comment on above: Performed By: #### B MPX, CDP, TROPI, MG ####[facility] [address] [place] [address] Lab Director: Rafa Prieto MD Monocytes/100 WBC (Bld) 23 % High 3-12 [facility] Comment on above: Performed By: #### B MPX, CDP, TROPI, MG ####[facility] [address] [place] [address] Lab Director: Rafa Prieto MD Morphology Rancho (Bld) [Interp] ANISOCYTOSIS PRESENT Normal [facility] Comment on above: Result Comment: MICR OCYTOSIS PRESENT Performed By: #### B MPX, CDP, TROPI, MG ####[facility] [address] [place] [address] Lab Director: Rafa Prieto MD Neutrophil (Seg) 54 % Normal 36-65 [facility] Comment on above: Performed By: #### B MPX, CDP, TROPI, MG ####[facility] [address] [place] [address] Lab Director: Rafa Prieto MD Erythrocyte distribution width (RBC) [Ratio] 15.8 % High 11.8-14.4 [facility] Comment on above: Performed By: #### B MPX, CDP, TROPI, MG ####[facility] [address] [place], [place] [address])[phone] Director: Rafa Prieto MD Hematocrit (Bld) [Volume fraction] 40.9 % Normal 40.7-50.3 [facility] Comment on above: Performed By: #### B MPX, CDP, TROPI, MG ####[facility] [address] [place], [place] [address])[phone] Director: Rafa Prieto MD Hemoglobin (Bld) [Mass/Vol] 12.3 g/dL Low 13.0-17.0 [facility] Comment on above: Performed By: #### B MPX, CDP, TROPI, MG ####[facility] [address] [place], [place] [phone])[phone] Director: Rafa Prieto MD MCH (RBC) [Entitic mass] 24.2 pg Low 25.2-33.5 [facility] Comment on above: Performed By: #### B MPX, CDP, TROPI, MG ####[facility] [address] [place], [place] [phone])[phone] Director: Rafa Prieto MD MCHC (RBC) [Mass/Vol] 30.1 g/dL Normal 28.4-34.8 [facility] Comment on above: Performed By: #### B MPX, CDP, TROPI, MG ####[facility] [address] [place], [place] [id number])[phone] Director: Rafa Prieto MD MCV (RBC) [Entitic vol] 80.5 fL Low 82.6-102.9 [facility] Comment on above: Performed By: #### B MPX, CDP, TROPI, MG ####[facility] [address] [place], [place] [id number])[phone] Director: Rafa Prieto MD NRBC Automated 0.0 per 100 WBC Normal 0.0 [facility] Comment on above: Performed By: #### B MPX, CDP, TROPI, MG ####[facility] [address] [place], [place] [phone])[phone] Director: Rafa Prieto MD Platelet mean volume (Bld) [Entitic vol] 11.0 fL Normal 8.1-13.5 [facility] Comment on above: Performed By: #### B MPX, CDP, TROPI, MG ####[facility] [address] [place], [place] [phone] Director: Rafa Prieto MD Platelets (Bld) [#/Vol] 246 10*3/uL Normal 138-453 [facility] Comment on above: Performed By: #### B MPX, CDP, TROPI, MG ####[facility] [address]fr[address] [place], [place] [id number])[phone] Director: Rafa Prieto MD RBC (Bld) [#/Vol] 5.08 10*6/uL Normal 4.21-5.77 [facility] Comment on above: Performed By: #### B MPX, CDP, TROPI, MG ####[facility] [address] [place], [place] [phone] Director: Rafa Prieto MD WBC (Bld) [#/Vol] 7.4 10*3/uL Normal 3.5-11.3 [facility] Comment on above: Performed By: #### B MPX, CDP, TROPI, MG ####[address] [place] [address] Lab Director: Rafa Prieto MD Abs. Basophil 0.00 k/uL Normal 0.0-0.2 [facility] Comment on above: Performed By: #### T ROPI #### [place] [address] County Administrator: Rafa Prieto MD Abs.Imm.Granulocyte 0.00 k/uL Normal 0.00-0.30 [facility] Comment on above: Performed By: #### T ROPI #### [place] [address] County Administrator: Rafa Prieto MD Abs.Neutrophil (Seg) 5.76 k/uL Normal 1.8-7.7 [facility] Comment on above: Performed By: #### T ROPI #### [place] [address] County Administrator: Rafa Prieto MD Basophils/100 WBC (Bld) 0 % Normal 0-2 [facility] Comment on above: Performed By: #### T ROPI #### [place] [address] County Administrator: Rafa Prieto MD Eosinophils (Bld) [#/Vol] 0.00 10*3/uL Normal 0.0-0.4 [facility] Comment on above: Performed By: #### T ROPI #### [facility] [address] [place] [address] County Administrator: Rafa Prieto MD Eosinophils/100 WBC (Bld) 0 % Low 1-4 [facility] Comment on above: Performed By: #### T ROPI #### [address] [address] County Administrator: Rafa Prieto MD Immature granulocytes/100 WBC (Bld) 0 % Normal 0 [facility] Comment on above: Performed By: #### T ROPI #### [address] [address] County Administrator: Rafa Prieto MD Lymphocytes (Bld) [#/Vol] 1.28 10*3/uL Normal 1.0-4.8 [facility] Comment on above: Performed By: #### T ROPI #### [address] [address] County Administrator: Rafa Prieto MD Lymphocytes/100 WBC (Bld) 16 % Low 24-44 [facility] Comment on above: Performed By: #### T ROPI #### [address] [address] County Administrator: Rafa Prieto MD Monocytes (Bld) [#/Vol] 0.96 10*3/uL High 0.1-0.8 [facility] Comment on above: Performed By: #### T ROPI #### [address] [address] County Administrator: Rafa Prieto MD Monocytes/100 WBC (Bld) 12 % High 1-7 [facility] Comment on above: Performed By: #### T ROPI #### [address] [address] County Administrator: Rafa Prieto MD Morphology Rancho (Bld) [Interp] ANISOCYTOSIS PRESENT Normal [facility] Comment on above: Result Comment: MICR OCYTOSIS PRESENT Performed By: #### T ROPI #### [address] [address] County Administrator: Rafa Prieto MD Neutrophil (Seg) 72 % High 36-66 [facility] Comment on above: Performed By: #### T ROPI #### [address] [address] County Administrator: Rafa Prieto MD Nucleated RBC'S 1 per 100 WBC High 0 [facility] Comment on above: Performed By: #### T ROPI #### [address] [address] County Administrator: Rafa Prieto MD Erythrocyte distribution width (RBC) [Ratio] 15.9 % High 11.8-14.4 [facility] Comment on above: Performed By: #### T ROPI #### [facility] [address] [place] [address] County Administrator: Rafa Prieto MD Hematocrit (Bld) [Volume fraction] 41.5 % Normal 40.7-50.3 [facility] Comment on above: Performed By: #### T ROPI #### [address] [address] County Administrator: Rafa Prieto MD Hemoglobin (Bld) [Mass/Vol] 12.7 g/dL Low 13.0-17.0 [facility] Comment on above: Performed By: #### T ROPI #### [place] [address] County Administrator: Rafa Prieto MD MCH (RBC) [Entitic mass] 24.3 pg Low 25.2-33.5 [facility] Comment on above: Performed By: #### T ROPI #### [facility] [address] [place] [address] County Administrator: Rafa Prieto MD MCHC (RBC) [Mass/Vol] 30.6 g/dL Normal 28.4-34.8 [facility] Comment on above: Performed By: #### T ROPI #### [address] [address] County Administrator: Rafa Prieto MD MCV (RBC) [Entitic vol] 79.5 fL Low 82.6-102.9 [facility] Comment on above: Performed By: #### T ROPI #### [address] [address] County Administrator: Rafa Prieto MD NRBC Automated 0.3 per 100 WBC High 0.0 [facility] Comment on above: Performed By: #### T ROPI #### [address] [address] County Administrator: Rafa Prieto MD Platelet mean volume (Bld) [Entitic vol] 10.9 fL Normal 8.1-13.5 [facility] Comment on above: Performed By: #### T ROPI #### [address] [address] County Administrator: Rafa Prieto MD Platelets (Bld) [#/Vol] 265 10*3/uL Normal 138-453 [facility] Comment on above: Performed By: #### T ROPI #### [address] [address] County Administrator: Rafa Prieto MD RBC (Bld) [#/Vol] 5.22 10*6/uL Normal 4.21-5.77 [facility] Comment on above: Performed By: #### T ROPI #### [address] [address] County Administrator: Rafa Prieto MD WBC (Bld) [#/Vol] 8.0 10*3/uL Normal 3.5-11.3 [facility] Comment on above: Performed By: #### T ROPI #### [address] [phone] County Administrator: Rafa Prieto MD Glucose,Whole Bloodon 2023 Glucose [Mass/Vol] 72 mg/dL Low 75-110 [facility] Glucose [Mass/Vol] 60 mg/dL Low 75-110 [facility] Glucose [Mass/Vol] 44 mg/dL Low 75-110 [facility] Comment on above: Result Comment: Alesia icaonofre Noted Glucose [Mass/Vol] 91 mg/dL Normal 75-110 [facility] Glucose [Mass/Vol] 66 mg/dL Low 75-110 [facility] Glucose [Mass/Vol] 42 mg/dL Low -110 [facility] Comment on above: Result Comment: Alesia icaonofre Noted Glucose [Mass/Vol] 124 mg/dL High -110 [facility] Heparin Anti-Xaon 01-01-2024 Heparin Anti-Xa 0.97 IU/L Normal [facility] Comment on above: Performed By: #### H EPXA #### [facility] [address] [place] [address] County Administrator: Rafa Prieto MD Heparin Anti-Xa 0.40 IU/L [facility] Comment on above: Performed By: #### H EPXA, PTT #### [facility] [address] [place] [address] County Administrator: Rafa Prieto MD Heparin Anti-Xa 0.32 IU/L Normal [facility] Comment on above: Performed By: #### H EPXA, PTT #### [facility] [address] [place] [address] County Administrator: Rafa Prieto MD Heparin Anti-Xa 0.29 IU/L [facility] Comment on above: Performed By: #### T ROPI #### [facility] [address] [place] [address] County Administrator: Rafa Prieto MD MRSA, DNA, Nasalon MRSA, DNA, Nasal Negative Normal NEG [facility] Comment on above: Result Comment: NEGA TIVE: MRSA DNA not detected by nucleic acid amplification. Results should be used as an adjunct to nosocomial control efforts to identify patients needing enhanced precautions. The test is not intended to identify patients with staphylococcal infections. Results should not be used to guide or monitor treatment for MRSA infections. Performed By: #### M RSANO ####[facility] [address] [place] [address] [phone] Director: Rafa Prieto MD Specimen Description .NASAL SWAB Normal [facility] Comment on above: Performed By: #### M RSANO ####[facility] [address] [place] [address] [phone] Director: Rafa Prieto MD Magnesiumon 01-01-2024 Magnesium [Mass/Vol] 1.7 mg/dL Normal 1.6-2.6 [facility] Comment on above: Performed By: #### B MPX, CDP, TROPI, MG ####[facility] [address] [place] [address] Lab Director: Rafa Prieto MD Troponinon 01-01-2024 Troponin, High Sens 103 ng/L Critically high 0-22 [facility] Comment on above: Result Comment: High Sensitivity Troponin values cannot be compared with other Troponin methodologies. Previous Alert Value Reported Performed By: #### B MPX, CDP, TROPI, MG ####[facility] [address] [place] [address] [phone] Director: Rafa Prieto MD Troponin, High Sens 107 ng/L Critically high 0-22 [facility] Comment on above: Result Comment: High Sensitivity Troponin values cannot be compared with other Troponin methodologies. Previous Alert Value Reported Performed By: #### T ROPI ####[facility] [address] [place] [address] [phone] Director: Rafa Prieto MD Troponin, High Sens 107 ng/L Critically high 0-22 [facility] Comment on above: Result Comment: High Sensitivity Troponin values cannot be compared with other Troponin methodologies. Previous Alert Value Reported Performed By: #### T ROPI #### [facility] [address] [place] [address] County Administrator: Rafa Prieto MD Troponin, High Sens 104 ng/L Critically high 0-22 [facility] Comment on above: Result Comment: High Sensitivity Troponin values cannot be compared with other Troponin methodologies. Performed By: #### T ROPI #### [facility] [address] [place] [address] County Administrator: Rafa Prieto MD Type + Screenon 01-01-2024 Type + Screen Sample Expiration 01/04/2024,2359 Arm Band Number [id number] ABO/Rh(D) A POSITIVE Antibody Screen NEGATIVE Normal [facility] Comment on above: Performed By: #### T YS ####[facility] [address] [place] [address] Lab Director: Rafa Prieto MD Urinalysis, Routineon 2023 Bilirubin, SemiQt,Ur Negative Normal NEG [facility] Comment on above: Performed By: #### H EPXA, PTT #### [facility] [address] [place] [address] County Administrator: Rafa Prieto MD Blood, Urine LARGE Abnormal NEG [facility] Comment on above: Performed By: #### H EPXA, PTT #### [facility] [address] [place] [address] County Administrator: Rafa Prieto MD Clarity (U) Clear Normal CLEAR [facility] Comment on above: Performed By: #### H EPXA, PTT #### [employer] [address] [place] [address] County Administrator: Rafa Prieto MD Color (U) Dark Yellow Abnormal YEL [facility] Comment on above: Performed By: #### H EPXA, PTT #### [facility] [address] [place] [address] County Administrator: Rafa Prieto MD Glucose Ql (U) Negative Normal NEG [facility] Comment on above: Performed By: #### H EPXA, PTT #### [facility] [address] [place] [address] County Administrator: Rafa Prieto MD Ketones Ql (U) Negative Normal NEG [facility] Comment on above: Performed By: #### H EPXA, PTT #### [facility] [address] [place] [address] County Administrator: Rafa Prieto MD Leukocyte esterase Test strip Ql (U) MODERATE Abnormal NEG [facility] Comment on above: Performed By: #### H EPXA, PTT #### [facility] [address] [place] [address] County Administrator: Rafa Prieto MD Nitrite,Ur Negative Normal NEG [facility] Comment on above: Performed By: #### H EPXA, PTT #### [facility] [address] [place] [address] County Administrator: Rafa Prieto MD PH,Ur 5.5 Normal 5.0-8.0 [facility] Comment on above: Performed By: #### H EPXA, PTT #### [facility] [address] [place] [address] County Administrator: Rafa Prieto MD Protein Ql (U) TRACE Abnormal NEG [facility] Comment on above: Performed By: #### H EPXA, PTT #### [facility] [address] [place] [address] County Administrator: Rafa Prieto MD Spec. [place],Ur 1.024 Normal 1.005-1.030 [facility] Comment on above: Performed By: #### H EPXA, PTT #### [facility] [address] [place] [address] County Administrator: Rafa Prieto MD Urobilinogen,Ur ELEVATED Normal 0.0-1.0 [facility] Comment on above: Performed By: #### H EPXA, PTT #### [facility] [address] [place] [address] County Administrator: Rafa Prieto MD Urinalysis,Microon 4 Epithelial cells LM Ql (Urine sed) 5 TO 10 Normal 0-5 [facility] Comment on above: Performed By: #### H EPXA, PTT #### [facility] [address] [place] [address] County Administrator: Raaf Prieto MD Urine RBC's TOO NUMEROUS TO COUNT Normal 0-2 [facility] Comment on above: Performed By: #### H EPXA, PTT #### [facility] [address] [place] [address] County Administrator: Rafa Prieto MD Urine WBC's 10 TO 20 Normal 05 [facility] Comment on above: Performed By: #### H EPXA, PTT #### [facility] [address] [place] [address] County Administrator: Rafa Prieto MD [place] Antinuclear Antibodieson 08-09-2023 Antinuclear Abs, IFA Negative Normal . [facility] Comment on above: Result Comment: Nega tive <1:80 Borderline 1:80 Positive >1:80 ICAP nomenclature: AC-0 For more information about Hep-2 cell patterns use ANApatterns.org, the official website for the International Consensus on Antinuclear Antibody ([place]) Patterns (ICAP). Performed at: [facility] [id number] County Administrator: Lester Nunez PhD, Phone: [phone] Performed By: #### A NA, [id number] #### [facility] , #### T4F, CRP, CK, CMP, ESR, CBC, TSH3 #### [facility] [address] [place] [address] C-Reactive Proteinon 023 C-Reactive Protein 0.5 mg/dL Normal 0.0-0.5 [facility] Comment on above: Performed By: #### A NA, [id number] #### [facility] , #### T4F, CRP, CK, CMP, ESR, CBC, TSH3 #### [address] Complete Blood Count Auto Di ffon 08-09-2023 Basophils (Bld) [#/Vol] 0.0 10*3/uL Normal 0.0-0.2 [facility] Comment on above: Performed By: #### A NA, [id number] #### [facility] , #### T4F, CRP, CK, CMP, ESR, CBC, TSH3 #### [place] [address] [place] Basophils/100 WBC (Bld) 0.6 % Normal . [facility] Comment on above: Performed By: #### A NA, [id number] #### [facility] , #### T4F, CRP, CK, CMP, ESR, CBC, TSH3 #### [place] [address] [place] Eosinophils (Bld) [#/Vol] 0.1 10*3/uL Normal 0.0-0.45 [facility] Comment on above: Performed By: #### A NA, [id number] #### [facility] , #### T4F, CRP, CK, CMP, ESR, CBC, TSH3 #### [place] [address] [place] Eosinophils/100 WBC (Bld) 1.4 % Normal . [facility] Comment on above: Performed By: #### A NA, [id number] #### [facility] , #### T4F, CRP, CK, CMP, ESR, CBC, TSH3 #### [address] Erythrocyte distribution width (RBC) [Ratio] 13.1 % Normal 12.0-14.8 [facility] Comment on above: Performed By: #### A NA, [id number] #### [facility] , #### T4F, CRP, CK, CMP, ESR, CBC, TSH3 #### [address] Hematocrit (Bld) [Volume fraction] 43.8 % Normal 38.8-50.0 [facility] Comment on above: Performed By: #### A NA, [id number] #### [facility] , #### T4F, CRP, CK, CMP, ESR, CBC, TSH3 #### [address] Hemoglobin (Bld) [Mass/Vol] 14.4 g/dL Normal 13.0-17.0 [facility] Comment on above: Performed By: #### A NA, [id number] #### [facility] , #### T4F, CRP, CK, CMP, ESR, CBC, TSH3 #### [address] Lymphocytes (Bld) [#/Vol] 1.7 10*3/uL Normal 1.00-4.8 [facility] Comment on above: Performed By: #### A NA, [id number] #### [facility] , #### T4F, CRP, CK, CMP, ESR, CBC, TSH3 #### [address] Lymphocytes/100 WBC (Bld) 24.1 % Normal . [facility] Comment on above: Performed By: #### A NA, [id number] #### [facility] , #### T4F, CRP, CK, CMP, ESR, CBC, TSH3 #### [address] MCH (RBC) [Entitic mass] 27.6 pg Normal 27.5-35.2 [facility] Comment on above: Performed By: #### A NA, [id number] #### [facility] , #### T4F, CRP, CK, CMP, ESR, CBC, TSH3 #### [address] MCV (RBC) [Entitic vol] 84.1 fL Normal 83.5-101 [facility] [place] Comment on above: Performed By: #### A NA, [id number] #### [facility] , #### T4F, CRP, CK, CMP, ESR, CBC, TSH3 #### [address] Mean Corpuscular HGB Conc 32.8 g/dL Normal 32.5-35.6 [facility] [place] Comment on above: Performed By: #### A NA, [id number] #### [facility] , #### T4F, CRP, CK, CMP, ESR, CBC, TSH3 #### [address] Monocytes (Bld) [#/Vol] 0.4 10*3/uL Normal 0.0-0.8 [facility] [place] Comment on above: Performed By: #### A NA, [id number] #### [facility] , #### T4F, CRP, CK, CMP, ESR, CBC, TSH3 #### [address] Monocytes/100 WBC (Bld) 5.9 % Normal . [facility] [place] Comment on above: Performed By: #### A NA, [id number] #### [facility] , #### T4F, CRP, CK, CMP, ESR, CBC, TSH3 #### [facility] [address] Neutrophils (Bld) [#/Vol] 4.9 10*3/uL Normal 1.8-7.7 [facility] [place] Comment on above: Performed By: #### A NA, [id number] #### [facility] , #### T4F, CRP, CK, CMP, ESR, CBC, TSH3 #### [address] Neutrophils/100 WBC (Bld) 68.0 % Normal . [facility] [place] Comment on above: Performed By: #### A NA, [id number] #### [facility] , #### T4F, CRP, CK, CMP, ESR, CBC, TSH3 #### [address] NRBC% 0.2 /100{WBC} Normal 0-0.5 [facility] [place] Comment on above: Performed By: #### A NA, [id number] #### [facility] , #### T4F, CRP, CK, CMP, ESR, CBC, TSH3 #### [address] Platelet mean volume (Bld) [Entitic vol] 10.9 fL High 6.6-10.1 [facility] [place] Comment on above: Performed By: #### A NA, [id number] #### [facility] , #### T4F, CRP, CK, CMP, ESR, CBC, TSH3 #### [facility] [address] [place] [address] [place] Platelets (Bld) [#/Vol] 216 10*3/uL Normal 150-450 [facility] [place] Comment on above: Performed By: #### A NA, [id number] #### [facility] , #### T4F, CRP, CK, CMP, ESR, CBC, TSH3 #### [facility] [address] [place] [address] [place] RBC (Bld) [#/Vol] 5.20 10*6/uL Normal 3.90-5.60 [facility] Comment on above: Performed By: #### A NA, [id number] #### [facility] , #### T4F, CRP, CK, CMP, ESR, CBC, TSH3 #### [address] WBC (Bld) [#/Vol] 7.1 10*3/uL Normal 4.1-10.5 [facility] Comment on above: Performed By: #### A NA, [id number] #### [facility] , #### T4F, CRP, CK, CMP, ESR, CBC, TSH3 #### [address] Comprehensive Metabolic Pane chery 08-09-2023 Albumin [Mass/Vol] 4.6 g/dL Normal 3.5-5.7 [facility] Comment on above: Performed By: #### A NA, [id number] #### [facility] , #### T4F, CRP, CK, CMP, ESR, CBC, TSH3 #### [address] Albumin/Globulin [Mass ratio] 1.3 {ratio} Normal [facility] [place] Comment on above: Performed By: #### A NA, [id number] #### [facility] , #### T4F, CRP, CK, CMP, ESR, CBC, TSH3 #### [address] ALP [Catalytic activity/Vol] 44 U/L Normal 34-104 [facility] [place] Comment on above: Performed By: #### A NA, [id number] #### [facility] , #### T4F, CRP, CK, CMP, ESR, CBC, TSH3 #### [address] ALT [Catalytic activity/Vol] 50 U/L Normal 7-52 [facility] [place] Comment on above: Performed By: #### A NA, [id number] #### [facility] , #### T4F, CRP, CK, CMP, ESR, CBC, TSH3 #### [facility] [address] [place] [address] Anion gap [Moles/Vol] 14.9 mmol/L Normal 6.0-15.0 [facility] [place] Comment on above: Performed By: #### A NA, [id number] #### [facility] , #### T4F, CRP, CK, CMP, ESR, CBC, TSH3 #### [facility] [address] [place] [address] AST [Catalytic activity/Vol] 33 U/L Normal 13-39 [facility] [place] Comment on above: Performed By: #### A NA, [id number] #### [facility] , #### T4F, CRP, CK, CMP, ESR, CBC, TSH3 #### [facility] [address] [place] [address] Bilirubin [Mass/Vol] 0.4 mg/dL Normal 0.3-1.0 [facility] [place] Comment on above: Performed By: #### A NA, [id number] #### [facility] , #### T4F, CRP, CK, CMP, ESR, CBC, TSH3 #### [facility] [address] [place] [address] Calcium [Mass/Vol] 10.2 mg/dL Normal 8.6-10.3 [facility] Comment on above: Performed By: #### A NA, [id number] #### [facility] , #### T4F, CRP, CK, CMP, ESR, CBC, TSH3 #### [facility] [address] [place] [address] Chloride [Moles/Vol] 97 mmol/L Low 98-107 [facility] [place] Comment on above: Performed By: #### A NA, [id number] #### [facility] , #### T4F, CRP, CK, CMP, ESR, CBC, TSH3 #### [facility] [address] CO2 [Moles/Vol] 29.7 mmol/L Normal 21.0-31.[address] [facility] Comment on above: Performed By: #### A NA, [id number] #### [facility] , #### T4F, CRP, CK, CMP, ESR, CBC, TSH3 #### [address] Creatinine [Mass/Vol] 0.80 mg/dL Normal 0.70-1.30 [facility] [place] Comment on above: Performed By: #### A NA, HLAB27 #### [facility] , #### T4F, CRP, CK, CMP, ESR, CBC, TSH3 #### [address] GFR/1.73 sq M.predicted MDRD (S/P/Bld) [Vol rate/Area] mL/min/{1.73_m2} [facility] Comment on above: Performed By: #### A NA, [id number] #### [facility] , #### T4F, CRP, CK, CMP, ESR, CBC, TSH3 #### [address] Globulin (S) [Mass/Vol] 3.5 g/dL [facility] Comment on above: Performed By: #### A NA, HLAB27 #### [facility] , #### T4F, CRP, CK, CMP, ESR, CBC, TSH3 #### [address] Glucose [Mass/Vol] 157 mg/dL High 70-100 [facility] Comment on above: Result Comment: [facility] Glucose Reference Range is dependent on time and content of last meal. Glucose of more than 200 mg/dL in a nonstressed, ambulatory subject supports the diagnosis of Diabetes Mellitus. ADA recommended reference range Performed By: #### A NA, [id number] #### [facility] , #### T4F, CRP, CK, CMP, ESR, CBC, TSH3 #### [address] Potassium [Moles/Vol] 4.6 mmol/L Normal 3.5-5.1 [facility] [place] Comment on above: Performed By: #### A NA, [id number] #### [facility] , #### T4F, CRP, CK, CMP, ESR, CBC, TSH3 #### [address] Protein [Mass/Vol] 8.1 g/dL Normal 6.4-8.9 [facility] Comment on above: Performed By: #### A NA, HLAB27 #### [facility] , #### T4F, CRP, CK, CMP, ESR, CBC, TSH3 #### [address] Sodium [Moles/Vol] 137 mmol/L Normal 136-145 [facility] Comment on above: Performed By: #### A NA, HLAB27 #### [facility] , #### T4F, CRP, CK, CMP, ESR, CBC, TSH3 #### [place] [address] [place] Urea nitrogen [Mass/Vol] 10 mg/dL Normal 7-25 [facility] [place] Comment on above: Performed By: #### A NA, HLAB27 #### [facility] , #### T4F, CRP, CK, CMP, ESR, CBC, TSH3 #### [place] [address] [place] Creatine Kinaseon 08-09-2023 CK [Catalytic activity/Vol] 95 U/L Normal 30-223 [facility] [place] Comment on above: Result Comment: PERF ORMED BY: [place] [address] PATHOLOGIST SOLE ROUNDING MACHINE OPERATOR JOSEPH SAUCEDA M.D. Performed By: #### A NA, [id number] #### [facility] , #### T4F, CRP, CK, CMP, ESR, CBC, TSH3 #### [address] Erythrocyte Sedimentation Ra baldo 08-09-2023 ESR (Bld) [Velocity] 30 mm/h High 0-19 [facility] [place] Comment on above: Result Comment: PERF ORMED BY: [place] [address] PATHOLOGIST SOLE ROUNDING MACHINE OPERATOR JOSEPH SAUCEDA M.D. Performed By: #### A NA, [id number] #### [facility] , #### T4F, CRP, CK, CMP, ESR, CBC, TSH3 #### [address] Free T4 (Free Thyroxine)on 1 Free T4 [Mass/Vol] 0.87 ng/dL Normal 0.61-1.12 [facility] Comment on above: Performed By: #### A NA, [id number] #### [facility] , #### T4F, CRP, CK, CMP, ESR, CBC, TSH3 #### [address] HLA B27 Disease Associationo n 08-09-2023 HLA B27 Disease Association Positive Normal . [facility] [place] Comment on above: Result Comment: HLA- B*27 Positive This patient is positive for HLA-B*27. This procedure rules out the B*27:06 and 27:09 alleles, which the literature suggests are not associated with spondyloarthropathies. B27 allele interpretation for all loci based on IMGT/HLA database version 3.44 This test was developed and its performance characteristics determined by [employer]. It has not been cleared or approved by the Food and Drug Administration. [facility] CLIA ID Number [id number] THis test was performed using Polymerase Chain Reaction (PCR) and Sequence Specific Oligonucleotide Probes (SSOP) technique. Sequence Based Typing (SBT) may be used as a supplemental method when necessary. If you have questions, please call [facility] customer service at or email at [email or web address]. Performed at: [address] [place] [id number] County Administrator: Minerva Pearce PhD, Phone: [phone] PERFORMED BY: [place] [address] PATHOLOGIST SOLE ROUNDING MACHINE OPERATOR JOSEPH SAUCEDA M.D. Performed By: #### A NA, [id number] #### [facility] , #### T4F, CRP, CK, CMP, ESR, CBC, TSH3 #### [address] Thyroid Stimulating Hormoneo n 08-09-2023 TSH Qn 2.42 m[IU]/L Normal 0.45-5.33 [facility] [place] Comment on above: Result Comment: PERF ORMED BY: [place] [address] PATHOLOGIST SOLE ROUNDING MACHINE OPERATOR JOSEPH SAUCEDA M.D. Performed By: #### A NA, [id number] #### [facility] , #### T4F, CRP, CK, CMP, ESR, CBC, TSH3 #### [place] [id number] [facility] XR thoracic spine 3V*on XR thoracic spine 3V* [facility] [place] [address] [place] [address] XRay Report Signed Patient: Vitaly Dobson MR#: [id number] : 1970 Acct:[id number] Age/Sex: 52 / M ADM Date: 08/09/23 Loc: ICXD Room: Type: [facility] Attending Dr: Edi Henriquez MD Copies to: Edi Henriquez MD Ordering Provider: Edi Henriquez MD Date of Service: 08/09/23 XR/XR lumbar spine 2-3V*: LOW BACK PAIN ([id number]) XR/XR thoracic spine 3V*: DISH VS ANKYLOSING SPONDYLITIS ([id number]) XR/XR si joints: LOW BACK PAIN CLINICAL [...] Vee Amanda M.D.08/09/2023 4:34 PM Dictation Location: [place] [address] Transcribed By: [facility] 08/09/23 6840 Dictated By: Vee Amanda MD 08/09/23 1600 Signed By: 08/09/23 1632 [facility] XR cervical spine 2-3Von 09- 20-2023 XR cervical spine 2-3V [facility] [employer] Other XR cervical spine 2-3V [address] [facility] [employer] Other XR cervical spine 2-3V [place] [address] [employer] Other XR cervical spine 2-3V XRay Report [employer] Other XR cervical spine 2-3V Signed [employer] Other XR cervical spine 2-3V Patient: VITALY DOBSON MR#: [id number] [employer] Other XR cervical spine 2-3V : 1970 Acct:[id number] [employer] Other XR cervical spine 2-3V Age/Sex: 52 / M ADM Date: 07/28/23 [employer] Other XR cervical spine 2-3V Loc: LAB [facility] Other XR cervical spine 2-3V Attending Dr: Semaj Avery D.O. [employer] Other XR cervical spine 2-3V Ordering Physician: Semaj Avery D.O. [employer] Other XR cervical spine 2-3V Date of Service: 07/28/23 [employer] Other XR cervical spine 2-3V Accession Number(s): [id number] [employer] Other XR cervical spine 2-3V cc: Semaj Avery D.O. [employer] Other XR cervical spine 2-3V [address] [place] [address] [employer] Other XR cervical spine 2-3V [place] [id number] [employer] Other XR cervical spine 2-3V [employer] Other XR cervical spine 2-3V Patient Name: [employer] Other XR cervical spine 2-3V VITALY DOBSON [employer] Other XR cervical spine 2-3V MRN: [facility]:[id number] date: 1970 Sex: M [employer] Other XR cervical spine 2-3V Assigned Patient Location: [facility] [employer] Other XR cervical spine 2-3V Current Patient Location: [facility] [employer] Other XR cervical spine 2-3V Accession/Order Number: [id number] [employer] Other XR cervical spine 2-3V Exam Date: 07/28/2023 11:15 Report Date: 07/28/2023 12:14 [employer] Other XR cervical spine 2-3V At the request of: [employer] Other XR cervical spine 2-3V SEMAJ BENNIE [employer] Other XR cervical spine 2-3V EXAMINATION: XR cervical spine 2-3V, XR lumbar spine 2-3V, XR thoracic spine [employer] Other XR cervical spine 2-3V 2V [employer] Other XR cervical spine 2-3V HISTORY: Scoliosis M41.20, Cervical Spondylosis M47.812 [employer] Other XR cervical spine 2-3V COMPARISON: No relevant comparison available. [employer] Other XR cervical spine 2-3V FINDINGS: [employer] Other XR cervical spine 2-3V BONES: Cervical spine demonstrates marked left convex curvature and mild [employer] Other XR cervical spine 2-3V reversal of normal lordotic curvature. Suspect degenerative changes versus [employer] Other XR cervical spine 2-3V osseous bridging of the facet joints at most levels. No appreciable fracture [employer] Other XR cervical spine 2-3V or [employer] Other XR cervical spine 2-3V spondylolisthesis [employer] Other XR cervical spine 2-3V Thoracic spine demonstrates moderate left convex curvature and exaggerated [employer] Other XR cervical spine 2-3V kyphosis. No appreciable fracture or spondylolisthesis. [employer] Other XR cervical spine 2-3V Lumbar spine demonstrates mild curvature at the thoracolumbar junction. [employer] Other XR cervical spine 2-3V Straightening of the normal lordotic curvature, and multilevel marked [employer] Other XR cervical spine 2-3V degenerative facet arthropathy. Bone encroachment on the L4-5 and L5-S1 neural [employer] Other XR cervical spine 2-3V foramen. [employer] Other XR cervical spine 2-3V DISC SPACES: Calcification of the interspinous ligaments throughout. Cervical [employer] Other XR cervical spine 2-3V spine multilevel mild disc space narrowing. Thoracic spine multilevel mild [employer] Other XR cervical spine 2-3V disc [employer] Other XR cervical spine 2-3V space narrowing. Lumbar spine and multilevel mild-moderate disc space [employer] Other XR cervical spine 2-3V narrowing. [employer] Other XR cervical spine 2-3V PARASPINOUS: No paraspinous abnormality is seen. [employer] Other XR cervical spine 2-3V Negative [employer] Other XR cervical spine 2-3V XR/XR cervical spine 2-3V [employer] Other XR cervical spine 2-3V IMPRESSION: [employer] Other XR cervical spine 2-3V 1. Limited examination due to patient needing to be imaged in the standing [employer] Other XR cervical spine 2-3V position. [employer] Other XR cervical spine 2-3V 2. Multilevel scoliotic curvature of the cervical and thoracic spine. [employer] Other XR cervical spine 2-3V 3. Thoracic kyphosis. [employer] Other XR cervical spine 2-3V 4. Findings favor diffuse ankylosing spondylitis throughout the cervical, [employer] Other XR cervical spine 2-3V thoracic, lumbar spine. [employer] Other XR cervical spine 2-3V 5. Multilevel mild degenerative disc disease. [employer] Other XR cervical spine 2-3V 6. Marked degenerative facet arthropathy of lumbar spine. [employer] Other XR cervical spine 2-3V Electronically authenticated by: DAMI GOMEZ Date: 07/28/2023 12:14 [employer] Other XR cervical spine 2-3V Dictated By: Dami Gomez M.D. [employer] Other XR cervical spine 2-3V Signed By: 07/28/23 1217 [employer] Other XR cervical spine 2-3V DD/ 1214 [employer] Other XR cervical spine 2-3V TD/TT: Director Employment: [employer] Other XR lumbar spine 2-3Von 07-28 XR lumbar spine 2-3V Accession Number(s): [id number] [employer] Other XR lumbar spine 2-3V Accession/Order Number: [id number] [employer] Other XR lumbar spine 2-3V XR/XR lumbar spine 2-3V [employer] Other XR thoracic spine 2Von 07-28 XR thoracic spine 2V Accession Number(s): [id number] [employer] Other XR thoracic spine 2V Accession/Order Number: [id number] [employer] Other XR thoracic spine 2V XR/XR thoracic spine 2V [employer] Other LIPID PROFILE SEND OUTon Cholesterol [Mass/Vol] 259 mg/dL Critically high 100-199 [facility] Comment on above: Performed By: #### B MPLC, LIPIDLC #### [facility] [address] [place] [address] [address] David Brown Cholesterol in HDL [Mass/Vol] 16 mg/dL Critically low >39 [facility] Comment on above: Performed By: #### B MPLC, LIPIDLC #### [facility] [address] [address] [address] David Brown Comment: Normal [facility] Comment on above: Performed By: #### B MPLC, LIPIDLC #### [facility] [address] [place] [address] [address] David Brown LDL Chol. Calc. ([facility]) Comment Abnormal 0-99 [facility] Comment on above: Result Comment: Trig lyceride result indicated is too high for an accurate LDL cholesterol estimation. Performed By: #### B MPLC, LIPIDLC #### [facility] [address] [place] [address] [address] David Brown Triglyceride [Mass/Vol] 2070 mg/dL Invalid Interpretation Code 0-149 [facility] Comment on above: Result Comment: Resu lts confirmed on dilution. Performed By: #### B MPLC, LIPIDLC #### [facility] [address] [place] [address] [address] David Brown VLDL Cholesterol, Calc Comment Abnormal 5-40 [facility] Comment on above: Result Comment: The calculation for the VLDL cholesterol is not valid when triglyceride level is >800 mg/dL. Performed By: #### B MPLC, LIPIDLC #### [facility] [address] [place] [address] Dr. David Brown PROF CHEM 8 (BAS METB) SEND OUTon 02-04-2023 Calcium [Mass/Vol] 10.0 mg/dL Normal 8.7-10.2 [facility] Comment on above: Performed By: #### B MPLC, LIPIDLC #### [facility] [address] [place] [address] Dr. David Brown Chloride [Moles/Vol] 91 mmol/L Critically low 96-106 [facility] Comment on above: Performed By: #### B MPLC, LIPIDLC #### [facility] [address] [place] [address] Dr. David Brown CO2 [Moles/Vol] 24 mmol/L Normal 20-29 [facility] Comment on above: Performed By: #### B MPLC, LIPIDLC #### [facility] [address] [place] [address] Dr. David Brown Creatinine [Mass/Vol] 1.00 mg/dL Normal 0.76-1.27 [facility] Comment on above: Performed By: #### B MPLC, LIPIDLC #### [facility] [address] [place] [address] Dr. David Brown GFR/1.73 sq M.predicted among non-blacks MDRD (S/P/Bld) [Vol rate/Area] 90 mL/min/{1.73_m2} Normal >59 [facility] Comment on above: Performed By: #### B MPLC, LIPIDLC #### [facility] [address] [place] [address] Dr. David Brown Glucose [Mass/Vol] 205 mg/dL Critically high 70-99 [facility] Comment on above: Performed By: #### B MPLC, LIPIDLC #### [facility] [address] [place] [address] Dr. David Brown Potassium [Moles/Vol] 4.7 mmol/L Normal 3.5-5.2 [facility] Comment on above: Performed By: #### B MPLC, LIPIDLC #### [facility] [address] [place] [address] Dr. David Brown Sodium [Moles/Vol] 132 mmol/L Critically low 134-144 [facility] Comment on above: Performed By: #### B MPLC, LIPIDLC #### [facility] [address] [place] [address] Dr. David Brown Urea nitrogen [Mass/Vol] 18 mg/dL Normal 6-24 [facility] Comment on above: Performed By: #### B MPLC, LIPIDLC #### [facility] [address] [place] [address] Dr. David Brown Urea nitrogen/Creatinine [Mass ratio] 18 mg/mg Normal 9-20 [facility] Comment on above: Performed By: #### B MPLC, LIPIDLC #### [facility] [address] [place] [address] Dr. David Brown CBC AUTO DIFFon 02-03-2023 BASO # 0.1 103/ul Normal 0.0-0.1 [facility] Comment on above: Performed By: #### C BC #### [facility] [address] [place] [address] Dr. David Brown Basophils/100 WBC (Bld) 0.6 % Normal 0.2-2.0 [facility] Comment on above: Performed By: #### C BC #### [facility] [address] [place] [address] Dr. David Brown EO # 0.2 103/ul Normal 0.0-0.7 [facility] Comment on above: Performed By: #### C BC #### [facility] [address] [place] [address] Dr. David Brown Eosinophils/100 WBC (Bld) 2.2 % Normal 0.9-7.0 [facility] Comment on above: Performed By: #### C BC #### [facility] [address] [place] [address] Dr. David Brown Erythrocyte distribution width (RBC) [Ratio] 12.7 % Normal 11.0-15.0 [facility] Comment on above: Performed By: #### C BC #### [facility] [address] [place] [address] Dr. David Brown Hematocrit (Bld) [Volume fraction] 43.6 % Normal 42.0-54.0 [facility] Comment on above: Performed By: #### C BC #### [facility] [address] [place] [address] Dr. David Brown Hemoglobin (Bld) [Mass/Vol] 14.6 g/dL Normal 14.0-18.0 [facility] Comment on above: Performed By: #### C BC #### [facility] [address] [place] [address] Dr. David Brown IG # 0.03 10e3/ul Normal 0.00-0.03 [facility] Comment on above: Performed By: #### C BC #### [facility] [address] [place] [address] Dr. David Brown IG % 0.3 % Normal 0.0-0.5 [facility] Comment on above: Performed By: #### C BC #### [facility] [address] [place] [address] Dr. David Brown LYMPH # 3.6 103/ul Normal 1.2-3.8 [facility] Comment on above: Performed By: #### C BC #### [facility] [address] [place] [address] Dr. David Brown Lymphocytes/100 WBC (Bld) 37.8 % Normal 20.5-60.0 [facility] Comment on above: Performed By: #### C BC #### [facility] [address] [place] [address] Dr. David Brown MANUAL DIFF REQ NO Normal [facility] Comment on above: Performed By: #### C BC #### [facility] [address] [place] [address] Dr. David Brown MCH (RBC) [Entitic mass] 28.3 pg Normal 25.9-34.0 [facility] Comment on above: Performed By: #### C BC #### [facility] [address] [place] [address] Dr. David Brown MCHC (RBC) [Mass/Vol] 33.5 g/dL Normal 29.9-35.2 [facility] Comment on above: Performed By: #### C BC #### [facility] [address] [place] [address] Dr. David Brown MCV (RBC) [Entitic vol] 84.7 fL Normal 80.0-94.0 [facility] Comment on above: Performed By: #### C BC #### [facility] [address] [place] [address] Dr. David Brown MONO # 0.9 103/ul Critically high 0.3-0.8 [facility] Comment on above: Performed By: #### C BC #### [facility] [address] [place] [address] Dr. David Brown Monocytes/100 WBC (Bld) 9.6 % Normal 1.7-12.0 [facility] Comment on above: Performed By: #### C BC #### [facility] [address] [place] [address] Dr. David Brown NEUT # 4.8 103/ul Normal 1.4-6.5 [facility] Comment on above: Performed By: #### C BC #### [facility] [address] [place] [address] Dr. David Brown Neutrophils/100 WBC (Bld) 49.5 % Normal 43.0-75.0 [facility] Comment on above: Performed By: #### C BC #### [facility] [address] [place] [address] Dr. David Brown Platelet mean volume (Bld) [Entitic vol] 12.0 fL Normal 9.5-13.5 [facility] Comment on above: Performed By: #### C BC #### [facility] [address] [place] [address] Dr. David Brown PLT 254 103/ul Normal 150-450 [facility] Comment on above: Performed By: #### C BC #### [facility] [address] [address] [address] David Brown RBC 5.15 106/ul Normal 4.70-6.10 [facility] Comment on above: Performed By: #### C BC #### [facility] [address] [place] [address] Dr. David Brown WBC 9.6 103/ul Normal 4.0-11.0 [facility] Comment on above: Performed By: #### C BC #### [facility] [address] [place] [address] Dr. David Brown GLYCOHEMOGLOBIN A1Con 2022 ADA RECOMMENDATION SEE BELOW Normal [facility] Comment on above: Result Comment: ADA RECOMMENDED LIMIT 4.0 - 6.0 ADA THERAPEUTIC TARGET < 7.0 ACTION SUGGESTED > 7.0 Performed By: #### A 1C #### [facility] [address] [place] [address] Dr. David Brown Glucose [Mass/Vol] 212 mg/dL Normal [facility] Comment on above: Performed By: #### A 1C #### [facility] [address] [place] [address] Dr. David Brown HbA1c (Bld) [Mass fraction] 9.0 % Critically high 4.5-6.2 [facility] Comment on above: Performed By: #### A 1C #### [facility] [address] [place] [address] Dr. David Brown MICROALBUMIN, RAND URon 03-2 mALB 5.5 mg/L Normal <=30.0 [facility] Comment on above: Performed By: #### M ALBR #### [facility] [address] [place] [address] Dr. David Brown GLYCOHEMOGLOBIN A1Con 2021 ADA RECOMMENDATION SEE BELOW Normal [facility] Comment on above: Result Comment: ADA RECOMMENDED LIMIT 4.0 - 6.0 ADA THERAPEUTIC TARGET < 7.0 ACTION SUGGESTED > 7.0 Performed By: #### A 1C #### [facility] [address], [place] [address] Dr. David Brown Glucose [Mass/Vol] 194 mg/dL Normal [facility] Comment on above: Performed By: #### A 1C #### [facility] [address], [place] [address] Dr. David Brown HbA1c (Bld) [Mass fraction] 8.4 % Critically high 4.5-6.2 [facility] Comment on above: Performed By: #### A 1C #### [facility] [address], [place] [address] Dr. David Brown Vital Signs Date Time Vital Sign Value Performing Clinician Facility 07-28-2023 09:30-0400 Body height 160.02 cm Semaj Ball Other [facility] Other 07-28-2023 09:30-0400 Body mass index (BMI) [Ratio] 47.33 kg/m2 Semaj Ball Other [facility] Other 07-28-2023 09:30-0400 Body weight 121.2 kg Semaj Ball Other [facility] Other 07-28-2023 09:30-0400 Diastolic blood pressure 87 mm[Hg] Semaj Ball Other [facility] Other 07-28-2023 09:30-0400 Respiratory rate 12 /min Semaj Ball Other [facility] Other 07-28-2023 09:30-0400 Systolic blood pressure 132 mm[Hg] Semaj Ball Other [facility] Other 01-25-2023 12:30-0400 Body height 160.02 cm Semaj Ball Other [facility] Other 01-25-2023 12:30-0400 Body mass index (BMI) [Ratio] 47.75 kg/m2 Semaj Avery Other [facility] Other 01-25-2023 12:30-0400 Body weight 122.29 kg Semaj Avery Other [facility] Other 01-25-2023 12:30-0400 Diastolic blood pressure 82 mm[Hg] Semaj Avery Other [facility] Other 01-25-2023 12:30-0400 Respiratory rate 12 /min Semaj Avery Other [facility] Other 01-25-2023 12:30-0400 Systolic blood pressure 130 mm[Hg] Semaj Avery Other [facility] Other Encounters Encounter Date Encounter Type Care Provider Facility Start: 05-25-2024 End: 05-25-2024 ambulatory RODRICK R DOLCE Not Available Start: 03-02-2024 End: 03-02-2024 ambulatory RODRICK R DOLCE Not Available Start: 01-01-2024 Evaluation and management of inpatient DELGADO GUIDO [facility] Start: 01-01-2024 End: 01-06-2024 Evaluation and management of inpatient SEMAJ AVERY [facility] Start: 11-18-2023 End: 11-18-2023 ambulatory RODRICK R DOLCE Not Available Start: 11-02-2023 End: 11-02-2023 ambulatory Semaj Avery Other [facility] Other Start: 11-02-2023 Telephone encounter Semaj Avery [facility] Start: 10-29-2023 End: 10-29-2023 ambulatory Semaj Avery Other [facility] Other Start: 10-29-2023 Telephone encounter Semaj MILES [facility] Start: 10-27-2023 End: 10-27-2023 ambulatory Semaj Avery Other [facility] Other Start: 10-27-2023 Telephone encounter Semaj Avery [facility] Start: 10-05-2023 End: 10-05-2023 ambulatory Semaj Avery Other [facility] Other Start: 10-05-2023 Telephone encounter Semaj Avery [facility] Start: 08-09-2023 End: 08-09-2023 ambulatory Edi Henriquez Facility:[facility] Start: 07-28-2023 End: 07-28-2023 ambulatory Semaj Avery Other [facility] Other Start: 07-28-2023 Office outpatient vi sit 25 minutes Semaj Avery [facility] Start: 07-28-2023 Telephone encounter Semaj Avery [facility] Start: 02-04-2023 End: 02-04-2023 ambulatory Semaj Avery Other [facility] Other Start: 02-04-2023 Telephone encounter Semaj Avery [facility] Start: 02-03-2023 Telephone encounter Semaj Avery [facility] Start: 02-03-2023 End: 02-04-[address] SEMAJ AVERY [facility] Other Start: 01-25-2023 End: 01-25-2023 ambulatory Semaj Avery Other [facility] Other Start: 01-25-2023 Encounter for genera l adult medical examination without abnormal findings Semaj Avery [facility] Start: 01-25-2023 Initial preventive exam Semaj Bal l [facility] Start: 01-25-2023 Patient encounter procedure Semaj Avery [facility] Start: 08-07-2022 End: 08-08-[address] SEMAJ AVERY Facility:[facility] Procedures Date Procedure Procedure Detail Performing Clinician Start: 02-03-[address] IVETT AVERY Comment on above: Performed By: #### P [facility] #### [facility] [address] [address] [address] David Brown Immunizations Immunization Date Immunization Notes Care Provider Fa donnie 09-04-2022 influenza, injectabl e, quadrivalent, contains preservative Semaj Bennie Other [facility] Other 09-04-2022 COVID-19 Pfizer (bivalent) Semaj Avery Other [facility] Other 09-04-2022 COVID-19 Pfizer (Pediatric) Semaj Avery Other [facility] Other 09-04-2022 influenza virus vaccine, split virus (incl. purified surface antigen) Semaj Avery Other [facility] Other 04-18-2022 zoster vaccine recombinant Semaj Avery Other [facility] Other 04-18-2022 zoster vaccine, live Benjami n Ball Other [facility] Other 02-13-2022 COVID-19 Vaccine Pfi zer - Documentation Purposes Only Semaj Avery Other [facility] Other 02-13-2022 Prevnar 20 Semaj Avery Other [facility] Other 02-13-2022 zoster vaccine recombinant Semaj Avery Other [facility] Other 02-13-2022 zoster vaccine, live Benjami n Ball Other [facility] Other 09-30-2021 COVID-19 Vaccine Pfi zer - Documentation Purposes Only Semaj Avery Other [facility] Other 02-11-2021 COVID-19 Vaccine Pfi zer - Documentation Purposes Only Semaj Avery Other [facility] Other 01-20-2021 COVID-19 Vaccine Pfi zer - Documentation Purposes Only Semaj Avery Other [facility] Other 07-22-2020 influenza virus vaccine, split virus (incl. purified surface antigen) Semaj Avery Other [facility] Other 09-13-2017 tetanus and diphther ia toxoids, adsorbed, preservative free, for adult use (5 Lf of tetanus toxoid and 2 Lf of diphtheria toxoid) Semaj Avery Other [facility] Other Payers Date Payer Category Payer Medicare [id number] 2023 Self-pay 1970 Unknown [id number] 2.16.84 [id number] 1970 Unknown [id number] 2.16.84 [id number] 1970 Unknown [id number] 2.16. [id number] 1970 Unknown [id number] 2.16. [id number] 1970 Unknown [id number] 2.16.84 [id number] 1970 Unknown [id number] 2.16.84 [id number] 1970 Unknown [id number] 2.16.84 [id number] 1960 Medicaid [id number] 2. [id number] 1960 Medicare [id number] 2.1 [id number] Unknown [id number] 2.16.8 [id number] Social History Date Type Detail Facility Sex Assigned At [facility] Other Clinical Notes 01-25-2023 to 11-02-2023 Note Date & Type Note Facility 11-02-2023 Evaluation note Encounter Date Diagnosis Assessment Notes Oct, Ankylosing spondylitis of thoracolumbar region (ICD-10 - M45.5) [facility] Other [id number] Evaluation note* Encounter Date Diagnosis Assessment Notes Treatment Notes Treatment Clinical Notes Oct, Type 2 diabetes mellitus with hyperglycemia, without long-term current use of insulin (ICD-10 - E11.65) [facility] Other [id number] Evaluation note* Encounter Date Diagnosis Assessment Notes Treatment Notes Treatment Clinical Notes Sep, Type 2 diabetes mellitus with hyperglycemia, without long-term current use of insulin (ICD-10 - E11.65) [facility] Other 09-20-2023 Evaluation note* Encounter Date Diagnosis [...] lidocaine patches and muscle relaxants at HS [facility] Other 09-20-2023 NoteProcedure(s): XR cervical spine 2-3V [facility] Other 09-20-2023 NoteProcedure: XR cervical spine 2-[facility] Other 09-20-2023 NoteProcedure(s): XR thoracic spine [facility] Other 09-20-2023 NoteProcedure: XR thoracic spine [facility] Other 09-20-2023 NoteProcedure(s): [facility] [employer] Other 09-20-2023 NoteProcedure: XR lumbar spine 2-[facility] Other 03-30-2023 Evaluation note* Encounter Date Diagnosis Assessment Notes Treatment Notes Treatment Clinical Notes Jan, Mixed hyperlipidemia (ICD-10 - E78.2) [facility] Other 03-29-2023 Evaluation note* Encounter Date Diagnosis Assessment Notes Treatment Notes Treatment Clinical Notes Jan, Type 2 diabetes mellitus with hyperglycemia, without long-term current use of insulin (ICD-10 - E11.65) [facility] Other 03-20-2023 Evaluation note* Encounter Date Diagnosis [...] reviewed and amended by provider signed below. [facility] Other Evaluation noteNo InformationNortSaberr Other History general Narrative - Reported* Type [...] HEM ATOMA Hospitalization History SEE SURGICAL HX [facility] Other Reason for referral (narrative)* Reason Referral for ankylos ing spondylitis Diagnosis 1 Ankylosing spondylit is of thoracolumbar region (M45.5) Diagnosis 2 Scoliosis (and kypho scoliosis), idiopathic (M41.20) Diagnosis 3 Cervical spondylosis (M47.812) Referral Organization [facility] Referring Provider First Name Semaj Referring Provider Last Name Bennie Referring Provider Specialty Internal Fl dicine Referred Organization Unknown Facility Referred Provider [...] medical treatment. Clinical Notes Include XR reports [facility] Other Summary Purpose Family History No Family [...] DATE CREATED AUTHOR AUTHOR'S ORGANIZ ATION 08/18/2023 [facility] DATE CREATED AUTHOR AUTHOR'S ORGANIZ ATION 01/13/2024 [facility] DATE CREATED AUTHOR AUTHOR'S ORGANIZ ATION 05/29/2024 [facility] [place] [facility] FOR RECORDS PERTAINING TO PATIENTS WHO [...] BE BASED ON THE PRIMARY CLINICAL RECORDS. [facility] [employer] provides no warranty or guarantee of the accuracy or completeness of information in this document.
--- NOTE | 2024-07-05 08:00 | CA_ITS ---
Patient Name: ERIC GUILLORY MR#: [id number] : 1970 Exam Date: 07/05/2024 Ordering Doctor: DR Semaj Avery D.O. ECHOCARDIOGRAM REPORT PROCEDURE: CA ECHO DOPPLER COMPLETE INDICATIONS: Pulmonary hypertension associated with hematologic disorder COMPARISON: None. DESCRIPTION: COMPLETE ECHOCARDIOGRAM Real-time transthoracic echocardiography with 2D, M-mode, spectral and color flow Doppler performed. QUALITY: Technical quality was adequate. LEFT VENTRICLE: Normal chamber size. Mild concentric hypertrophy. Global left ventricular systolic function is normal. Abnormal septal motion consistent with right ventricular volume/pressure overload. LV EF: Visual estimation of left ventricular ejection fraction is 65% DIASTOLIC: Normal diastolic function. ATRIAL SEPTUM: LEFT ATRIUM: Normal chamber size. RIGHT ATRIUM: Moderate dilatation. RIGHT VENTRICLE: Severe dilatation. Mildly decreased right ventricular systolic function. TRICUSPID VALVE: Normal mobility and thickness. No stenosis with mild regurgitation. Mild pulmonary hypertension. RVSP 39 mmHg MITRAL VALVE: Normal mobility and thickness. No evidence of mitral valve stenosis. Mild mitral annular calcification. No mitral regurgitation. AORTIC VALVE: Normal trileaflet appearance. No visible sclerosis. Normal leaflet mobility. No evidence of aortic valve stenosis. No aortic regurgitation. AORTIC ROOT: Normal diameter and appearance. PULMONIC VALVE: Normal thickness and mobility. No stenosis. No regurgitation. PERICARDIUM: No evidence of pericardial effusion. IVC: Not well visualized. PLEURA: CONCLUSION: 1. Mild concentric left ventricular hypertrophy with normal systolic function. Estimated LVEF is 65%. Abnormal septal motion is consistent with right ventricular pressure/volume overload. 2. Severely dilated right ventricle with mildly reduced systolic function. 3. Moderate right atrial dilatation. 4. Mild tricuspid regurgitation. 5. Mildly elevated right-sided pressures. Right ventricular systolic pressure might be underestimated. 6. No pericardial effusion. Adult Echocardiography Procedure Report Left Ventricle LVEDD (3.7 - 5.6 cm): 4.61 cm LVESD (2.2 - 4.0 cm): 2.83 cm LVIVS thickness (0.6 - 1.2 cm): 1.40 cm LVPW thickness (0.5 - 1.0 cm): 0.99 cm e': 0.13 m/s E - e': 4.48 LVOT Max Gradient: 2.40 mm[Hg] LVOT Area (cm2): 0.77 m/s Peak Velocity (LVOT): 0.77 m/s Mean Velocity (LVOT): 0.48 m/s LVOT Diameter 2.62 cm Left Atrium Left Atrium Systolic Dimension: 3.78 cm Mitral Valve MV E to A Ratio: 0.70 Mitral Valve A-Wave Peak Velocity: 0.81 m/s Mitral Valve E-Wave Peak Velocity: 0.57 m/s Right Ventricle RV Internal Diastolic Dimension: 5.81 cm Aorta AO Root Diam: 3.48 cm Ascending Ao Diam: 3.23 cm Aortic Valve AoV Area (Peak Jean-Paul): 5.21 cm2, 5.21 cm2 AoV Area (VTI): 5.54 cm2, 5.54 cm2 Tricuspid Valve Peak Velocity (Regurgitant Flow): 2.99 m/s, 2.85 m/s, 2.82 m/s, 3.28 m/s, 2.98 m/s Pulmonic Valve Mean Gradient: 2.39 mm[Hg] Mean Velocity: 0.73 m/s Peak Velocity: 1.05 m/s, 0.97 m/s Peak Gradient: 3.74 mm[Hg], 4.39 mm[Hg] Right Atrium Right Atrium Systolic Pressure: 101.04 ml, 101.04 ml Dictated by: Francisco Ceja M.D. on 07/05/2024 at 11:09 Approved by: Francisco Ceja M.D. on 07/05/2024 at 11:13
== END 2024-07-05 07:36 | disposition home or self-care (01) ==
LOC: CARD 07:36
PROVIDERS: PCP Internal Medicine; Visit Provider Internal Medicine
DX: I27.29 Other secondary pulmonary hypertension (principal); D75.9 Disease of blood and blood-forming organs, unspecified; I26.99 Other pulmonary embolism without acute cor pulmonale; G47.33 Obstructive sleep apnea (adult) (pediatric); I10 Essential (primary) hypertension
CPT/HCPCS: 93306

== ENCOUNTER 2025-01-04 10:06 | Outpatient (OUT) | payer MEDICARE, MEDICAID, SELFPAY ==
--- OUTSIDE RECORDS SUMMARY | 2025-01-04 10:24 | XMS_ITS | CCD ---
Author Organization [facility] Care Team Providers Care Account Executive Key Accounts Name Role Phone Semaj Avery Unavailable BENNIE, [...] NUNN Admitting Unavailable DELGADO GUIDO Consulting Unavailabl e ARLINEJANNET Muniz Consulting Unavailable NURA, MOHAMMED S Consulting Unavailable DELGADO GUIDO Attending UnavailDELGADO Paz Referring UnavailSEMAJ Richards Primary Care Unavailable Semaj Avery MD Primary Care Provider RODRICK THOMAS Attending Unavailable OSMIN THOMASM R Attending Unavailable MARTHA RODRICK R Attending Unavailable MARTHA RODRICK R Attending Unavailable ORLY HERRING Attending Unavailable OSMIN THOMASM Quinton Attending Unavailable Medications Current Medications Medication Drug Class(es) Dates Sig (Normalized) Sig (Original) apixaban 5 mg oral tablet (8 sources) Factor Xa Inhibitor Start: 01-06-2024 apixaban (Eliquis) 5 MG tablet Take 10 mg by mouth 01/06/2024 Active atorvastatin 10 mg oral tablet (8 sources) HMG-CoA Reductase Inhibitor Start: 07-14-2024 take 1 tablet by mouth at bedtime atorvastatin (Lipitor) 10 MG tablet Take 10 mg by mouth at bedtime 07/14/2024 Active fenofibrate 200 mg oral capsule (17 sources) Peroxisome Proliferator Receptor alpha Agonist Start: 02-04-2023 take 1 capsule by mouth once daily at mealtime fenofibrate micronized (Lofibra) 200 MG capsule TAKE 1 CAPSULE BY MOUTH EVERY DAY WITH FOOD 02/28/2023 Active glimepiride 4 mg oral tablet (19 sources) Sulfonylurea Start: 03-24-2023 take 1 tablet by mouth once daily at breakfast glimepiride (Amaryl) 4 MG tablet TAKE 1 TABLET BY MOUTH EVERY DAY 30 MINUTES PRIOR TO BREAKFAST 03/24/2023 Active Glimepiride 4 MG 1 1/2 tab taken [...] bromide 0.042 mg/actuat metered dose nasal spray (19 sources) Anticholinergic Start: 08-11-2023 ipratropium (A trovent) 0.06 % nasal spray 08/11/2023 Active Ipratropium Brom shantel 0.06 % USE 2 SPRAYS IN EACH NOSTRIL 2-3 TIMES A DAY NEEDED for 90 Active Ipratropium Brom shantel 0.06 % USE 2 SPRAYS IN EACH NOSTRIL 2-3 TIMES A DAY NEEDED for 90 Active take 2 spray(s) nasa l route three times daily as needed Ipratropium Russell 0.06 % 2 sprays in e ach nostril Nasally Three times a day as needed Active lisinopril 10 mg oral tablet (19 sources) Angiotensin Converting Enzyme Inhibitor Start: 03-04-2023 take 1 tablet by mouth in the morning lisinopril 10 MG tablet Take 10 mg by mouth in the morning. 03/04/2023 Active Lisinopril 20 MG TAKE 1 TABLET BY MOUTH EVERY DAY Orally Once a day for 30 days Active melatonin 3 mg oral capsule (5 sources) take 1 capsule by mouth at bedtime Melatonin 3 MG capsule Take 3 mg by mouth at bedtime Active metFORMIN hydrochloride 1000 mg oral tablet (19 sources) Biguanide Start: metFORMIN (Glucophage) 1000 MG tablet TAKE 1 TABLET BEFORE BREAKFAST AND EVENING MEAL 03/19/2023 Active nabumetone 750 mg oral tablet (10 sources) Nonsteroidal Anti-inflammatory Drug Start: nabumetone (Relafen) 750 MG tablet 09/05/2023 Active OneTouch Verio - (10 sources) OneTouch Verio - USE TO TEST HOME BLOOD SUGAR ONCE DAILY In Vitro qd for 30 days Active OneTouch Verio - USE TO TEST HOME BLOOD SUGAR ONCE DAILY for 30 Active tiZANidine 4 mg oral tablet (19 sources) Central alpha-2 Adrenergic Agonist Start: 11-09-2023 tiZANidine HCl 4 MG 1 1/2 tablet Orally q HS for 30 days Nov, Active Start: 12-23-2022 take 1 capsule by mo [facility] once daily at bedtime tiZANidine (Zanaflex) 6 MG capsule TAKE 1 CAPSULE BY MOUTH EVERYDAY AT BEDTIME 12/23/2022 Active traMADol hydrochloride 50 mg oral tablet (10 sources) Opioid Agonist Start: 08-30-2023 take 1 tablet by mouth three times daily as needed for pain traMADol (Ultram) 50 MG tablet TAKE 1 TABLET BY MOUTH THREE TIMES A DAY NEEDED FOR SEVERE PAIN 08/30/2023 Active take [address] 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 THERAPY] Onset: 02-05-2023 Episodic Other and ill-defined heart disease (1 source) Cardiomegaly; Translations: [Cardiomegaly] Onset: 01-01-2024 Chronic Other bone disease and musculoskeletal deformities (10 sources) Idiopathic kyphoscoliosis; Translations: [Other idiopathic scoliosis, site unspecified] Chronic Other bone disease and musculoskeletal deformities (3 sources) Other idiopathic scoliosis, site unspecified Chronic Other connective tissue disease (3 sources) Other muscle spasm Episodic Other connective tissue disease (4 sources) Pain of toe of right foot; Translations: [Pain in right toe(s)] 10-19-2024 Episodic Other connective tissue disease (4 sources) Pain of toe of left foot; Translations: [Pain in left toe(s)] 10-19-2024 Episodic Other lower respiratory disease (2 sources) Hypoxia; Translations: [Hypoxemia] 10-04-2024 Episodic Other lower respiratory disease (2 sources) Snoring; Translations: [Snoring] 10-04-2024 Episodic Other screening for suspected conditions (not [...] without acute cor pulmonale] Onset: 01-01-2024 Episodic Residual codes; unclassified (2 sources) Obstructive sleep apnea syndrome; Translations: [Obstructive sleep apnea (adult) (pediatric)] 10-04-2024 Chronic Residual codes; unclassified (2 sources) Hypersomnia; Translations: [Hypersomnia, unspecified] 10-04-2024 Chronic Rheumatoid arthritis and related disease (9 sources) [...] Anion gap [Moles/Vol] 8 mmol/L Low 9-17 [facility] Comment on above: Performed By: #### B MPX, CDP ####[facility] [address] [place], [place] [id number])[phone] Director: Rafa Prieto MD Calcium [Mass/Vol] 7.9 mg/dL Low 8.6-10.4 [facility] Comment on above: Performed By: #### B MPX, CDP ####[facility] [address] [place], [place] [id number])[phone] Director: Rafa Prieto MD Chloride [Moles/Vol] 97 mmol/L Low 98-107 [facility] Comment on above: Performed By: #### B MPX, CDP ####[facility] [address] [place], [place] [id number])[phone] Director: Rafa Prieto MD CO2 [Moles/Vol] 25 mmol/L Normal 20-31 [facility] Comment on above: Performed By: #### B MPX, CDP ####[facility] [address] [place], [place] [id number])[phone] Director: Rafa Prieto MD Creatinine [Mass/Vol] 0.6 mg/dL Low 0.7-1.2 [facility] Comment on above: Performed By: #### B MPX, CDP ####[facility] [address] [place], [place] [id number])[phone] Director: Rafa Prieto MD GFR/1.73 sq M.predicted among non-blacks MDRD (S/P/Bld) [Vol rate/Area] mL/min/{1.73_m2} Normal >60 [facility] Comment on above: Result Comment: These results [...] Performed By: #### B MPX, CDP ####[facility] [address] [place], [place] [address])[phone] Director: Rafa Prieto MD Glucose [Mass/Vol] 122 mg/dL High 70-99 [facility] Comment on above: Performed By: #### B MPX, CDP ####[facility] [address] [place], [place] [address])[phone] Director: Rafa Prieto MD Potassium [Moles/Vol] 3.9 mmol/L Normal 3.7-5.3 [facility] Comment on above: Performed By: #### B MPX, CDP ####[facility] [address] [place] [address])[phone] Director: Rafa Prieto MD Sodium [Moles/Vol] 130 mmol/L Low 135-144 [facility] Comment on above: Performed By: #### B MPX, CDP ####[facility] [address] [place], [place] [id number])[phone] Director: Rafa Prieto MD Urea nitrogen [Mass/Vol] 10 mg/dL Normal 6-20 [facility] Comment on above: Performed By: #### B MPX, CDP ####[facility] [address] [place], [place] [address])[phone] Director: Rafa Prieto MD CBC with Diffon 01-06-2024 Abs. Basophil 0.04 k/uL Normal 0.00-0.20 [facility] Comment on above: Performed By: #### H EPXA, PTT #### [facility] [place] [address] Jack Machine Operator: Rafa Prieto MD Abs.Imm.Granulocyte 0.03 k/uL Normal 0.00-0.30 [facility] Comment on above: Performed By: #### H EPXA, PTT #### [facility] [employer] [address] [place] [address] Jack Machine Operator: Rafa Prieto MD Abs.Neutrophil (Seg) 5.00 k/uL Normal 1.50-8.10 [facility] Comment on above: Performed By: #### H EPXA, PTT #### [facility] [employer] [address] [place] [address] Jack Machine Operator: Rafa Prieto MD Basophils/100 WBC (Bld) 1 % Normal 0-2 [facility] Comment on above: Performed By: #### H EPXA, PTT #### [facility] [address] [place] [address] Jack Machine Operator: Rafa Prieto MD Eosinophils (Bld) [#/Vol] 0.38 10*3/uL Normal 0.00-0.44 [facility] Comment on above: Performed By: #### H EPXA, PTT #### [facility] [address] [place] [address] Jack Machine Operator: Rafa Prieto MD Eosinophils/100 WBC (Bld) 5 % High 1-4 [facility] Comment on above: Performed By: #### H EPXA, PTT #### [facility] [address] [place] [address] Jack Machine Operator: Rafa Prieto MD Erythrocyte distribution width (RBC) [Ratio] 16.5 % High 11.8-14.4 [facility] Comment on above: Performed By: #### H EPXA, PTT #### [facility] [address] [place] [address] Jack Machine Operator: Rafa Prieto MD Hematocrit (Bld) [Volume fraction] 37.0 % Low 40.7-50.3 [facility] Comment on above: Performed By: #### H EPXA, PTT #### [address] [address] Jack Machine Operator: Rafa Prieto MD Hemoglobin (Bld) [Mass/Vol] 10.7 g/dL Low 13.0-17.0 [facility] Comment on above: Performed By: #### H EPXA, PTT #### [facility] [address] [place] [address] Jack Machine Operator: Rafa Prieto MD Immature granulocytes/100 WBC (Bld) 0 % Normal 0 [facility] Comment on above: Performed By: #### H EPXA, PTT #### [address] [address] Jack Machine Operator: Rafa Prieto MD Lymphocytes (Bld) [#/Vol] 1.55 10*3/uL Normal 1.10-3.70 [facility] Comment on above: Performed By: #### H EPXA, PTT #### [address] [address] Jack Machine Operator: Rafa Prieto MD Lymphocytes/100 WBC (Bld) 19 % Low 24-43 [facility] Comment on above: Performed By: #### H EPXA, PTT #### [address] [address] Jack Machine Operator: Rafa Prieto MD MCH (RBC) [Entitic mass] 24.0 pg Low 25.2-33.5 [facility] Comment on above: Performed By: #### H EPXA, PTT #### [facility] [address] [place] [address] Jack Machine Operator: Rafa Prieto MD MCHC (RBC) [Mass/Vol] 28.9 g/dL Normal 28.4-34.8 [facility] Comment on above: Performed By: #### H EPXA, PTT #### [address] [address] Jack Machine Operator: Rafa Prieto MD MCV (RBC) [Entitic vol] 83.0 fL Normal 82.6-102.9 [facility] Comment on above: Performed By: #### H EPXA, PTT #### [address] [address] Jack Machine Operator: Rafa Prieto MD Monocytes (Bld) [#/Vol] 0.99 10*3/uL Normal 0.10-1.20 [facility] Comment on above: Performed By: #### H EPXA, PTT #### [address] [address] Jack Machine Operator: Rafa Prieto MD Monocytes/100 WBC (Bld) 12 % Normal 3-12 [facility] Comment on above: Performed By: #### H EPXA, PTT #### [address] [address] Jack Machine Operator: Rafa Prieto MD Neutrophil (Seg) 63 % Normal 36-65 [facility] Comment on above: Performed By: #### H EPXA, PTT #### [address] [address] Jack Machine Operator: Rafa Prieto MD NRBC Automated 0.0 per 100 WBC Normal 0.0 [facility] Comment on above: Performed By: #### H EPXA, PTT #### [address] [address] Jack Machine Operator: Rafa Prieto MD Platelet mean volume (Bld) [Entitic vol] 10.8 fL Normal 8.1-13.5 [facility] Comment on above: Performed By: #### H EPXA, PTT #### [address] [address] Jack Machine Operator: Rafa Prieto MD Platelets (Bld) [#/Vol] 204 10*3/uL Normal 138-453 [facility] Comment on above: Performed By: #### H EPXA, PTT #### [facility] [place] [address] Jack Machine Operator: Rafa Prieto MD RBC (Bld) [#/Vol] 4.46 10*6/uL Normal 4.21-5.77 [facility] Comment on above: Performed By: #### H EPXA, PTT #### [facility] [address] [place] [address] Jack Machine Operator: Rafa Prieto MD RBC morphology finding Nom (Bld) ANISOCYTOSIS PRESENT Normal [facility] Comment on above: Performed By: #### H EPXA, PTT #### [facility] [address] [place] [address] Jack Machine Operator: Rafa Prieto MD WBC (Bld) [#/Vol] 8.0 10*3/uL Normal 3.5-11.3 [facility] Comment on above: Performed By: #### H EPXA, PTT #### [facility] [address] [place] [address] Jack Machine Operator: Rafa Prieto MD Cult,Urineon 01-06-2024 Cult,Urine Specimen Description .CLEAN CATCH URINE Culture NO GROWTH Report Status FINAL 01/06/2024 Normal [facility] Comment on above: Performed By: #### U RC #### [address] [address] Jack Machine Operator: Rafa Prieto MD Glucose,Whole Bloodon 2023 Glucose [Mass/Vol] 174 mg/dL High 75-110 [facility] Glucose [Mass/Vol] 192 mg/dL High 75-110 [facility] Glucose [Mass/Vol] 119 mg/dL High 75-110 [facility] Heparin Anti-Xaon 01-06-2024 Heparin Anti-Xa 0.41 IU/L Normal [facility] Comment on above: Performed By: #### H EPXA ####[address] [address])[phone] Director: Rafa Prieto MD Basic Metab w/rfx MGon 01-05 Anion gap [Moles/Vol] 11 mmol/L Normal 9-17 [facility] Comment on above: Performed By: #### U RC #### [address] [address] Jack Machine Operator: Rafa Prieto MD Calcium [Mass/Vol] 7.9 mg/dL Low 8.6-10.4 [facility] Comment on above: Performed By: #### U RC #### [address] [address] Jack Machine Operator: Rafa Prieto MD Chloride [Moles/Vol] 99 mmol/L Normal 98-107 [facility] Comment on above: Performed By: #### U RC #### [address] [address] Jack Machine Operator: Rafa Prieto MD CO2 [Moles/Vol] 24 mmol/L Normal 20-31 [facility] Comment on above: Performed By: #### U RC #### [address] [address] Jack Machine Operator: Rafa Prieto MD Creatinine [Mass/Vol] 0.6 mg/dL Low 0.7-1.2 [facility] Comment on above: Performed By: #### U RC #### [address] [address] Jack Machine Operator: Rafa Prieto MD GFR/1.73 sq M.predicted among non-blacks MDRD (S/P/Bld) [Vol rate/Area] mL/min/{1.73_m2} Normal >60 [facility] Comment on above: Result Comment: These results [...] secretion. Performed By: #### U RC #### [address] [address] Jack Machine Operator: Rafa Preito MD Glucose [Mass/Vol] 97 mg/dL Normal 70-99 [facility] Comment on above: Performed By: #### U RC #### [address] [address] Jack Machine Operator: Rafa Prieto MD Potassium [Moles/Vol] 4.3 mmol/L Normal 3.7-5.3 [facility] Comment on above: Performed By: #### U RC #### [address] [address] Jack Machine Operator: Rafa Prieto MD Sodium [Moles/Vol] 134 mmol/L Low 135-144 [facility] Comment on above: Performed By: #### U RC #### [address] [address] Jack Machine Operator: Rafa Prieto MD Urea nitrogen [Mass/Vol] 10 mg/dL Normal 6-20 [facility] Comment on above: Performed By: #### U RC #### [address] [address] Jack Machine Operator: Rafa Prieto MD CBC with Diffon 01-05-2024 Abs. Basophil 0.00 k/uL Normal 0.0-0.2 [facility] Comment on above: Performed By: #### U RC #### [address] [address] Jack Machine Operator: Rafa Prieto MD Abs.Imm.Granulocyte 0.00 k/uL Normal 0.00-0.30 [facility] Comment on above: Performed By: #### U RC #### [address] [address] Jack Machine Operator: Rafa Prieto MD Abs.Neutrophil (Seg) 4.99 k/uL Normal 1.8-7.7 [facility] Comment on above: Performed By: #### U RC #### [place] [address] Jack Machine Operator: Rafa Prieto MD Basophils/100 WBC (Bld) 0 % Normal 0-2 [facility] Comment on above: Performed By: #### U RC #### [place] [address] Jack Machine Operator: Rafa Prieto MD Eosinophils (Bld) [#/Vol] 0.39 10*3/uL Normal 0.0-0.4 [facility] Comment on above: Performed By: #### U RC #### [place] [address] Jack Machine Operator: Rafa Prieto MD Eosinophils/100 WBC (Bld) 5 % High 1-4 [facility] Comment on above: Performed By: #### U RC #### [address] [address] Jack Machine Operator: Rafa Prieto MD Immature granulocytes/100 WBC (Bld) 0 % Normal 0 [facility] Comment on above: Performed By: #### U RC #### [address] [address] Jack Machine Operator: Rafa Prieto MD Lymphocytes (Bld) [#/Vol] 1.48 10*3/uL Normal 1.0-4.8 [facility] Comment on above: Performed By: #### U RC #### [address] [address] Jack Machine Operator: Rafa Prieto MD Lymphocytes/100 WBC (Bld) 19 % Low 24-44 [facility] Comment on above: Performed By: #### U RC #### [address] [address] Jack Machine Operator: Rafa Prieto MD Monocytes (Bld) [#/Vol] 0.94 10*3/uL High 0.1-0.8 [facility] Comment on above: Performed By: #### U RC #### [address] [address] Jack Machine Operator: Rafa Prieto MD Monocytes/100 WBC (Bld) 12 % High 1-7 [facility] Comment on above: Performed By: #### U RC #### [address] [address] Jack Machine Operator: Rafa Prieto MD Morphology Rancho (Bld) [Interp] ANISOCYTOSIS PRESENT Normal [facility] Comment on above: Performed By: #### U RC #### [address] [address] Jack Machine Operator: Rafa Prieto MD Neutrophil (Seg) 64 % Normal 36-66 [facility] Comment on above: Performed By: #### U RC #### [address] [address] Jack Machine Operator: Rafa Prieto MD Erythrocyte distribution width (RBC) [Ratio] 16.6 % High 11.8-14.4 [facility] Comment on above: Performed By: #### U RC #### [address] [address] Jack Machine Operator: Rafa Prieto MD Hematocrit (Bld) [Volume fraction] 38.6 % Low 40.7-50.3 [facility] Comment on above: Performed By: #### U RC #### [address] [address] Jack Machine Operator: Rafa Prieto MD Hemoglobin (Bld) [Mass/Vol] 10.9 g/dL Low 13.0-17.0 [facility] Comment on above: Performed By: #### U RC #### [address] [address] Jack Machine Operator: Rafa Prieto MD MCH (RBC) [Entitic mass] 24.0 pg Low 25.2-33.5 [facility] Comment on above: Performed By: #### U RC #### [address] [address] Jack Machine Operator: Rafa Prieto MD MCHC (RBC) [Mass/Vol] 28.2 g/dL Low 28.4-34.8 [facility] Comment on above: Result Comment: TEST CONFIRMED Performed By: #### U RC #### [address] [address] Jack Machine Operator: Rafa Prieto MD MCV (RBC) [Entitic vol] 85.0 fL Normal 82.6-102.9 [facility] Comment on above: Performed By: #### U RC #### [address] [address] Jack Machine Operator: Rafa Prieto MD NRBC Automated 0.0 per 100 WBC Normal 0.0 [facility] Comment on above: Performed By: #### U RC #### [address] [address] Jack Machine Operator: Rafa Prieto MD Platelet mean volume (Bld) [Entitic vol] 11.9 fL Normal 8.1-13.5 [facility] Comment on above: Performed By: #### U RC #### [facility] [place] [address] Jack Machine Operator: Rafa Prieto MD Platelets (Bld) [#/Vol] 192 10*3/uL Normal 138-453 [facility] Comment on above: Performed By: #### U RC #### [address] [address] Jack Machine Operator: Rafa Prieto MD RBC (Bld) [#/Vol] 4.54 10*6/uL Normal 4.21-5.77 [facility] Comment on above: Performed By: #### U RC #### [address] [address] Jack Machine Operator: Rafa Prieto MD WBC (Bld) [#/Vol] 7.8 10*3/uL Normal 3.5-11.3 [facility] Comment on above: Performed By: #### U RC #### [address] [address] Jack Machine Operator: Rafa Prieto MD Glucose,Whole Bloodon 2023 Glucose [Mass/Vol] 147 mg/dL High 75-110 [facility] Glucose [Mass/Vol] 178 mg/dL High 75-110 [facility] Glucose [Mass/Vol] 158 mg/dL High 75-110 [facility] Glucose [Mass/Vol] 106 mg/dL Normal 75-110 [facility] Heparin Anti-Xaon 01-05-2024 Heparin Anti-Xa 0.41 IU/L Normal [facility] Comment on above: Performed By: #### U RC #### [address] [address] Jack Machine Operator: Rafa Prieto MD Basic Metab w/rfx MGon 01-04 Anion gap [Moles/Vol] 8 mmol/L Low 9-17 [facility] Comment on above: Performed By: #### H EPXA, PTT #### [facility] [place] [address] Jack Machine Operator: Rafa Prieto MD Calcium [Mass/Vol] 7.7 mg/dL Low 8.6-10.4 [facility] Comment on above: Performed By: #### H EPXA, PTT #### [facility] [address] [place] [address] Jack Machine Operator: Rafa Prieto MD Chloride [Moles/Vol] 98 mmol/L Normal 98-107 [facility] Comment on above: Performed By: #### H EPXA, PTT #### [facility] [address] [place] [address] Jack Machine Operator: Rfaa Prieto MD CO2 [Moles/Vol] 26 mmol/L Normal 20-31 [facility] Comment on above: Performed By: #### H EPXA, PTT #### [facility] [address] [place] [address] Jack Machine Operator: Rafa Prieto MD Creatinine [Mass/Vol] 0.6 mg/dL Low 0.7-1.2 [facility] Comment on above: Performed By: #### H EPXA, PTT #### [facility] [address] [place] [address] Jack Machine Operator: Rafa Prieto MD GFR/1.73 sq M.predicted among non-blacks MDRD (S/P/Bld) [Vol rate/Area] mL/min/{1.73_m2} Normal >60 [facility] Comment on above: Result Comment: These results [...] Performed By: #### H EPXA, PTT #### [facility] [address] [place] [address] Jack Machine Operator: Rafa Prieto MD Glucose [Mass/Vol] 94 mg/dL Normal 70-99 [facility] Comment on above: Performed By: #### H EPXA, PTT #### [facility] [address] [place] [address] Jack Machine Operator: Rafa Prieto MD Potassium [Moles/Vol] 3.9 mmol/L Normal 3.7-5.3 [facility] Comment on above: Performed By: #### H EPXA, PTT #### [facility] [address] [place] [address] Jack Machine Operator: Rafa Prieto MD Sodium [Moles/Vol] 132 mmol/L Low 135-144 [facility] Comment on above: Performed By: #### H EPXA, PTT #### [facility] [address] [place] [address] Jack Machine Operator: Rafa Prieto MD Urea nitrogen [Mass/Vol] 12 mg/dL Normal 6-20 [facility] Comment on above: Performed By: #### H EPXA, PTT #### [facility] [address] [place] [address] Jack Machine Operator: Rafa Prieto MD CBC with Diffon 01-04-2024 Abs. Basophil 0.04 k/uL Normal 0.00-0.20 [facility] Comment on above: Performed By: #### H EPXA, PTT #### [facility] [address] [place] [address] Jack Machine Operator: Rafa Prieto MD Abs.Imm.Granulocyte 0.04 k/uL Normal 0.00-0.30 [facility] Comment on above: Performed By: #### H EPXA, PTT #### [address] [address] Jack Machine Operator: Rafa Prieto MD Abs.Neutrophil (Seg) 5.71 k/uL Normal 1.50-8.10 [facility] Comment on above: Performed By: #### H EPXA, PTT #### [address] [address] Jack Machine Operator: Rafa Prieto MD Basophils/100 WBC (Bld) 0 % Normal 0-2 [facility] Comment on above: Performed By: #### H EPXA, PTT #### [address] [address] Jack Machine Operator: Rafa Prieto MD Eosinophils (Bld) [#/Vol] 0.30 10*3/uL Normal 0.00-0.44 [facility] Comment on above: Performed By: #### H EPXA, PTT #### [address] [address] Jack Machine Operator: Rafa Prieto MD Eosinophils/100 WBC (Bld) 3 % Normal 1-4 [facility] Comment on above: Performed By: #### H EPXA, PTT #### [address] [address] Jack Machine Operator: Rafa Prieto MD Erythrocyte distribution width (RBC) [Ratio] 16.1 % High 11.8-14.4 [facility] Comment on above: Performed By: #### H EPXA, PTT #### [address] [address] Jack Machine Operator: Rafa Prieto MD Hematocrit (Bld) [Volume fraction] 36.0 % Low 40.7-50.3 [facility] Comment on above: Performed By: #### H EPXA, PTT #### [facility] [address] [place] [address] [place] [address] Jack Machine Operator: Rafa Prieto MD Hemoglobin (Bld) [Mass/Vol] 10.5 g/dL Low 13.0-17.0 [facility] Comment on above: Performed By: #### H EPXA, PTT #### [facility] [address] [place] [address] Jack Machine Operator: Rafa Prieto MD Immature granulocytes/100 WBC (Bld) 0 % Normal 0 [facility] Comment on above: Performed By: #### H EPXA, PTT #### [facility] [address] [place] [address] Jack Machine Operator: Rafa Prieto MD Lymphocytes (Bld) [#/Vol] 1.76 10*3/uL Normal 1.10-3.70 [facility] Comment on above: Performed By: #### H EPXA, PTT #### [facility] [address] [place] [address] Jack Machine Operator: Rafa Prieto MD Lymphocytes/100 WBC (Bld) 20 % Low 24-43 [facility] Comment on above: Performed By: #### H EPXA, PTT #### [facility] [address] [place] [address] Jack Machine Operator: Rafa Prieto MD MCH (RBC) [Entitic mass] 24.1 pg Low 25.2-33.5 [facility] Comment on above: Performed By: #### H EPXA, PTT #### [facility] [address] [place] [address] Jack Machine Operator: Rafa Prieto MD MCHC (RBC) [Mass/Vol] 29.2 g/dL Normal 28.4-34.8 [facility] Comment on above: Performed By: #### H EPXA, PTT #### [facility] [address] [place] [address] Jack Machine Operator: Rafa Prieto MD MCV (RBC) [Entitic vol] 82.8 fL Normal 82.6-102.9 [facility] Comment on above: Performed By: #### H EPXA, PTT #### [address] [address] Jack Machine Operator: Rafa Prieto MD Monocytes (Bld) [#/Vol] 1.12 10*3/uL Normal 0.10-1.20 [facility] Comment on above: Performed By: #### H EPXA, PTT #### [address] [address] Jack Machine Operator: Rafa Prieto MD Monocytes/100 WBC (Bld) 13 % High 3-12 [facility] Comment on above: Performed By: #### H EPXA, PTT #### [address] [address] Jack Machine Operator: Rafa Prieto MD Neutrophil (Seg) 64 % Normal 36-65 [facility] Comment on above: Performed By: #### H EPXA, PTT #### [address] [address] Jack Machine Operator: Rafa Prieto MD NRBC Automated 0.0 per 100 WBC Normal 0.0 [facility] Comment on above: Performed By: #### H EPXA, PTT #### [address] [address] Jack Machine Operator: Rafa Prieto MD Platelet mean volume (Bld) [Entitic vol] 11.1 fL Normal 8.1-13.5 [facility] Comment on above: Performed By: #### H EPXA, PTT #### [address] [address] Jack Machine Operator: Rafa Prieto MD Platelets (Bld) [#/Vol] 207 10*3/uL Normal 138-453 [facility] Comment on above: Performed By: #### H EPXA, PTT #### [facility] [place] [address] Jack Machine Operator: Rafa Prieto MD RBC (Bld) [#/Vol] 4.35 10*6/uL Normal 4.21-5.77 [facility] Comment on above: Performed By: #### H EPXA, PTT #### [facility] [address] [place] [address] Jack Machine Operator: Rafa Prieto MD RBC morphology finding Nom (Bld) ANISOCYTOSIS PRESENT Normal [facility] Comment on above: Performed By: #### H EPXA, PTT #### [facility] [address] [place] [address] Jack Machine Operator: Rafa Prieto MD WBC (Bld) [#/Vol] 9.0 10*3/uL Normal 3.5-11.3 [facility] Comment on above: Performed By: #### H EPXA, PTT #### [facility] [address] [place] [address] Jack Machine Operator: Rafa Prieto MD Glucose,Whole Bloodon 2023 Glucose [Mass/Vol] 143 mg/dL High 75-110 [facility] Glucose [Mass/Vol] 150 mg/dL High 75-110 [facility] Hemoglobin A1Con 01-04-2024 Glucose [Mass/Vol] 140 mg/dL Normal [facility] Comment on above: Result Comment: The ADA and AACC recommend providing the estimated average glucose result to permit better patient understanding of their HBA1c result. Performed By: #### H EPXA, PTT #### [facility] [address] [place] [address] Jack Machine Operator: Rafa Prieto MD HbA1c (Bld) [Mass fraction] 6.5 % High 4.0-6.0 [facility] Comment on above: Performed By: #### H EPXA, PTT #### [facility] [address] [place] [address] Jack Machine Operator: Rafa Prieto MD Heparin Anti-Xaon 01-04-2024 Heparin Anti-Xa 0.53 IU/L Normal [facility] Comment on above: Performed By: #### T ROPI #### [facility] [address] [place] [address] Jack Machine Operator: Rafa Prieto MD Heparin Anti-Xa 0.65 IU/L Normal [facility] Comment on above: Performed By: #### U RC #### [facility] [address] [place] [address] Jack Machine Operator: Rafa Prieto MD Heparin Anti-Xa 0.29 IU/L Normal [facility] Comment on above: Performed By: #### H EPXA, PTT #### [facility] [address] [place] [address] Jack Machine Operator: Rafa Prieto MD Basic Metab w/rfx MGon 01-03 Anion gap [Moles/Vol] 8 mmol/L Low 9-17 [facility] Comment on above: Performed By: #### H EPXA, PTT #### [facility] [address] [place] [address] Jack Machine Operator: Rafa Prieto MD Calcium [Mass/Vol] 7.8 mg/dL Low 8.6-10.4 [facility] Comment on above: Performed By: #### H EPXA, PTT #### [facility] [address] [place] [address] Jack Machine Operator: Rafa Prieto MD Chloride [Moles/Vol] 94 mmol/L Low 98-107 [facility] Comment on above: Performed By: #### H EPXA, PTT #### [facility] [address] [place] [address] Jack Machine Operator: Rafa Prieto MD CO2 [Moles/Vol] 25 mmol/L Normal 20-31 [facility] Comment on above: Performed By: #### H EPXA, PTT #### [facility] [address] [place] [address] Jack Machine Operator: Rafa Prieto MD Creatinine [Mass/Vol] 0.6 mg/dL Low 0.7-1.2 [facility] Comment on above: Performed By: #### H EPXA, PTT #### [facility] [address] [place] [address] Jack Machine Operator: Rafa Prieto MD GFR/1.73 sq M.predicted among non-blacks MDRD (S/P/Bld) [Vol rate/Area] mL/min/{1.73_m2} Normal >60 [facility] Comment on above: Result Comment: These results [...] Performed By: #### H EPXA, PTT #### [facility] [address] [place] [address] Jack Machine Operator: Rafa Prieto MD Glucose [Mass/Vol] 108 mg/dL High 70-99 [facility] Comment on above: Performed By: #### H EPXA, PTT #### [facility] [address] [place] [address] Jack Machine Operator: Rafa Prieto MD Potassium [Moles/Vol] 3.7 mmol/L Normal 3.7-5.3 [facility] Comment on above: Performed By: #### H EPXA, PTT #### [facility] [address] [place] [address] Jack Machine Operator: Rafa Prieto MD Sodium [Moles/Vol] 127 mmol/L Low 135-144 [facility] Comment on above: Performed By: #### H EPXA, PTT #### [facility] [place] [address] Jack Machine Operator: Rafa Prieto MD Urea nitrogen [Mass/Vol] 15 mg/dL Normal 6-20 [facility] Comment on above: Performed By: #### H EPXA, PTT #### [facility] [address] [place] [address] Jack Machine Operator: Rafa Prieto MD Brain Natri. Peptideon 01-03 Natriuretic peptide B (Bld) [Mass/Vol] 1253 pg/mL High <300 [facility] Comment on above: Result Comment: An age-independent cutoff point of 300 pg/ml has a 98% negative predictive value excluding acute heart failure. Performed By: #### H EPXA, BNP, TROPI ####[facility] [address] [place] [address])[phone] Director: Rafa Prieto MD CBC with Diffon 01-03-2024 Abs. Basophil 0.05 k/uL Normal 0.00-0.20 [facility] Comment on above: Performed By: #### H EPXA, PTT #### [facility] [address] [place] [address] Jack Machine Operator: Rafa Prieto MD Abs.Imm.Granulocyte <0.03 Normal 0.00-0.30 [facility] Comment on above: Performed By: #### H EPXA, PTT #### [facility] [place] [address] Jack Machine Operator: Rafa Prieto MD Abs.Neutrophil (Seg) 4.63 k/uL Normal 1.50-8.10 [facility] Comment on above: Performed By: #### H EPXA, PTT #### [facility] [address] [place] [address] Jack Machine Operator: Rafa Prieto MD Basophils/100 WBC (Bld) 1 % Normal 0-2 [facility] Comment on above: Performed By: #### H EPXA, PTT #### [address] [address] Jack Machine Operator: Rafa Prieto MD Eosinophils (Bld) [#/Vol] 0.23 10*3/uL Normal 0.00-0.44 [facility] Comment on above: Performed By: #### H EPXA, PTT #### [facility] [address] [place] [address] Jack Machine Operator: Rafa Prieto MD Eosinophils/100 WBC (Bld) 3 % Normal 1-4 [facility] Comment on above: Performed By: #### H EPXA, PTT #### [facility] [address] [place] [address] Jack Machine Operator: Rafa Prieto MD Erythrocyte distribution width (RBC) [Ratio] 16.2 % High 11.8-14.4 [facility] Comment on above: Performed By: #### H EPXA, PTT #### [facility] [address] [place] [address] Jack Machine Operator: Rafa Prieto MD Hematocrit (Bld) [Volume fraction] 37.7 % Low 40.7-50.3 [facility] Comment on above: Performed By: #### H EPXA, PTT #### [facility] [address] [place] [address] Jack Machine Operator: Rafa Prieto MD Hemoglobin (Bld) [Mass/Vol] 10.9 g/dL Low 13.0-17.0 [facility] Comment on above: Performed By: #### H EPXA, PTT #### [facility] [address] [place] [address] Jack Machine Operator: Rafa Prieto MD Immature granulocytes/100 WBC (Bld) 0 % Normal 0 [facility] Comment on above: Performed By: #### H EPXA, PTT #### [address] [address] Jack Machine Operator: Rafa Prieto MD Lymphocytes (Bld) [#/Vol] 1.96 10*3/uL Normal 1.10-3.70 [facility] Comment on above: Performed By: #### H EPXA, PTT #### [address] [address] Jack Machine Operator: Rafa Prieto MD Lymphocytes/100 WBC (Bld) 24 % Normal 24-43 [facility] Comment on above: Performed By: #### H EPXA, PTT #### [address] [address] Jack Machine Operator: Rafa Prieto MD MCH (RBC) [Entitic mass] 24.2 pg Low 25.2-33.5 [facility] Comment on above: Performed By: #### H EPXA, PTT #### [address] [address] Jack Machine Operator: Rafa Prieto MD MCHC (RBC) [Mass/Vol] 28.9 g/dL Normal 28.4-34.8 [facility] Comment on above: Performed By: #### H EPXA, PTT #### [address] [address] Jack Machine Operator: Rafa Prieto MD MCV (RBC) [Entitic vol] 83.6 fL Normal 82.6-102.9 [facility] Comment on above: Performed By: #### H EPXA, PTT #### [address] [address] Jack Machine Operator: Rafa Prieto MD Monocytes (Bld) [#/Vol] 1.23 10*3/uL High 0.10-1.20 [facility] Comment on above: Performed By: #### H EPXA, PTT #### [address] [address] Jack Machine Operator: Rafa Prieto MD Monocytes/100 WBC (Bld) 15 % High 3-12 [facility] Comment on above: Performed By: #### H EPXA, PTT #### [address] [address] Jack Machine Operator: Rafa Prieto MD Neutrophil (Seg) 57 % Normal 36-65 [facility] Comment on above: Performed By: #### H EPXA, PTT #### [address] [address] Jack Machine Operator: Rafa Prieto MD NRBC Automated 0.0 per 100 WBC Normal 0.0 [facility] Comment on above: Performed By: #### H EPXA, PTT #### [address] [address] Jack Machine Operator: Rafa Prieto MD Platelet mean volume (Bld) [Entitic vol] 10.8 fL Normal 8.1-13.5 [facility] Comment on above: Performed By: #### H EPXA, PTT #### [address] [address] Jack Machine Operator: Rafa Prieto MD Platelets (Bld) [#/Vol] 194 10*3/uL Normal 138-453 [facility] Comment on above: Performed By: #### H EPXA, PTT #### [address] [address] Jack Machine Operator: Rafa Prieto MD RBC (Bld) [#/Vol] 4.51 10*6/uL Normal 4.21-5.77 [facility] Comment on above: Performed By: #### H EPXA, PTT #### [address] [place] [address] Jack Machine Operator: Rafa Prieto MD RBC morphology finding Nom (Bld) ANISOCYTOSIS PRESENT Normal [facility] Comment on above: Performed By: #### H EPXA, PTT #### [facility] [address] [place] [address] Jack Machine Operator: Rafa Prieto MD WBC (Bld) [#/Vol] 8.1 10*3/uL Normal 3.5-11.3 [facility] Comment on above: Performed By: #### H EPXA, PTT #### [facility] [address] [place] [address] Jack Machine Operator: Rafa Prieto MD Glucose,Whole Bloodon 2023 Glucose [Mass/Vol] 143 mg/dL High 75-110 [facility] Glucose [Mass/Vol] 107 mg/dL Normal 75-110 [facility] Heparin Anti-Xaon 01-03-2024 Heparin Anti-Xa 0.48 IU/L Normal [facility] Comment on above: Performed By: #### H EPXA, BNP, TROPI ####[facility] [address] [place] [address] Lab Director: Rafa Prieto MD Osmolalityon 01-03-2024 Osmolality [Osmolality] 280 mosm/kg Normal 275-295 [facility] Comment on above: Performed By: #### O SMO, REJEC ####[facility] [address] [place] [address] Lab Director: Rafa Prieto MD Osmolality, Urineon 01-03-20 24 Osmolality - Urine 293 mOsm/kg Normal 80-1300 [facility] Comment on above: Performed By: #### U RC #### [facility] [address] [place] [address] Jack Machine Operator: Rafa Prieto MD Sodium, Random Uron 01-03-20 24 Na Conc. Urine <20 Normal [facility] Comment on above: Result Comment: No n ormal range established. Performed By: #### U RC #### [address] [address] Jack Machine Operator: Rafa Prieto MD Specimen Rejectionon 024 Reason for rejection Unable to perform testing: Specimen quantity not sufficient. Normal [facility] Comment on above: Performed By: #### O SMO, REJEC ####[address] [address] Lab Director: Rafa Prieto MD Source of sample .BLOOD Normal [facility] Comment on above: Performed By: #### O [facility], REJEC ####[address] [address] Lab Director: Rafa Prieto MD Test ordered BNP TROPI Normal [facility] Comment on above: Performed By: #### O SMO, REJEC ####[address] [address] Lab Director: Rafa Prieto MD Troponinon 01-03-2024 Troponin, High Sens 57 ng/L Critically high 0-22 [facility] Comment on above: Result Comment: High Sensitivity Troponin values cannot be compared with other Troponin methodologies. Performed By: #### U RC #### [address] [address] Jack Machine Operator: Rafa Prieto MD XR CHEST PORTABLEon 01-03-20 24 XR CHEST PORTABLE EXAMINATION: ONE XRAY VIEW OF THE CHEST 01/03/2024 10:17 am COMPARISON: None. HISTORY: ORDERING SYSTEM PROVIDED HISTORY: increasing Fio[employer] TECHNOLOGIST PROVIDED HISTORY: increasing Fio2 FINDINGS: There is bilateral basal and left upper lobe infiltrates/atelectas is. Bony structures are unremarkable. IMPRESSION: Bilateral basal and left upper lobe infiltrates/atelectas is. Interpreted by: Samir Infante MD Signed by: Samir Infante MD 2/26/24 Final result Normal [facility] Arterial Bld Gas,POCon 01-02 Rao Test Positive Normal [facility] HCO3 (Bld) [Moles/Vol] 30.0 mmol/L High 21.0-28.0 [facility] Oxygen saturation in Blood 93.2 % Low 94.0-98.0 [facility] Patient Temp. 37.7 Normal [facility] pCO2, Arterial 53.1 mm Hg High 35.0-48.0 [facility] pCO2, Temp Adjust 54.7 mm Hg Normal [facility] pH, Arterial 7.361 Normal 7.350-7.450 [facility] pH, Temp Adjust 7.350 Normal [facility] pO2, Arterial 71.8 mm Hg Low 83.0-108.0 [facility] pO2, Temp Adjust 75.2 mm Hg Normal [facility] Positive Base Excess (calc) 3.3 mmol/L High 0.0-3.0 [facility] Site Drawn Left Radial Artery Normal [facility] Basic Metab w/rfx MGon 01-02 Anion gap [Moles/Vol] 9 mmol/L Normal 9-17 [facility] Comment on above: Performed By: #### H EPXA, PTT #### [facility] [address] [place] [address] Jack Machine Operator: Rafa Prieto MD Calcium [Mass/Vol] 8.0 mg/dL Low 8.6-10.4 [facility] Comment on above: Performed By: #### H EPXA, PTT #### [facility] [address] [place] [address] Jack Machine Operator: Rafa Prieto MD Chloride [Moles/Vol] 100 mmol/L Normal 98-107 [facility] Comment on above: Performed By: #### H EPXA, PTT #### [facility] [place] [address] Jack Machine Operator: Rafa Prieto MD CO2 [Moles/Vol] 26 mmol/L Normal 20-31 [facility] Comment on above: Performed By: #### H EPXA, PTT #### [facility] [address] [place] [address] Jack Machine Operator: Rafa Prieto MD Creatinine [Mass/Vol] 0.7 mg/dL Normal 0.7-1.2 [facility] Comment on above: Performed By: #### H EPXA, PTT #### [facility] [address] [place] [address] Jack Machine Operator: Rafa Prieto MD GFR/1.73 sq M.predicted among non-blacks MDRD (S/P/Bld) [Vol rate/Area] mL/min/{1.73_m2} Normal >60 [facility] Comment on above: Result Comment: These results [...] Performed By: #### H EPXA, PTT #### [facility] [address] [place] [address] Jack Machine Operator: Rafa Prieto MD Glucose [Mass/Vol] 110 mg/dL High 70-99 [facility] Comment on above: Performed By: #### H EPXA, PTT #### [facility] [address] [place] [address] Jack Machine Operator: Rafa Prieto MD Potassium [Moles/Vol] 3.9 mmol/L Normal 3.7-5.3 [facility] Comment on above: Performed By: #### H EPXA, PTT #### [facility] [address] [place] [address] Jack Machine Operator: Rafa Prieto MD Sodium [Moles/Vol] 135 mmol/L Normal 135-144 [facility] Comment on above: Performed By: #### H EPXA, PTT #### [facility] [address] [place] [address] Jack Machine Operator: Rafa Prieto MD Urea nitrogen [Mass/Vol] 15 mg/dL Normal 6-20 [facility] Comment on above: Performed By: #### H EPXA, PTT #### [facility] [address] [place] [address] Jack Machine Operator: Rafa Prieto MD CBC with Diffon 01-02-2024 Abs. Basophil 0.00 k/uL Normal 0.0-0.2 [facility] Comment on above: Performed By: #### H EPXA, PTT #### [facility] [address] [place] [address] Jack Machine Operator: Rafa Prieto MD Abs.Imm.Granulocyte 0.00 k/uL Normal 0.00-0.30 [facility] Comment on above: Performed By: #### H EPXA, PTT #### [facility] [address] [place] [address] Jack Machine Operator: Rafa Prieto MD Abs.Neutrophil (Seg) 4.48 k/uL Normal 1.8-7.7 [facility] Comment on above: Performed By: #### H EPXA, PTT #### [facility] [address] [place] [address] Jack Machine Operator: Rafa Prieto MD Basophils/100 WBC (Bld) 0 % Normal 0-2 [facility] Comment on above: Performed By: #### H EPXA, PTT #### [facility] [address] [place] [address] Jack Machine Operator: Rafa Prieto MD Eosinophils (Bld) [#/Vol] 0.08 10*3/uL Normal 0.0-0.4 [facility] Comment on above: Performed By: #### H EPXA, PTT #### [facility] [address] [place] [address] Jack Machine Operator: Rafa Prieto MD Eosinophils/100 WBC (Bld) 1 % Normal 1-4 [facility] Comment on above: Performed By: #### H EPXA, PTT #### [facility] [address] [place] [address] Jack Machine Operator: Rafa Prieto MD Immature granulocytes/100 WBC (Bld) 0 % Normal 0 [facility] Comment on above: Performed By: #### H EPXA, PTT #### [facility] [address] [place] [address] Jack Machine Operator: Rafa Prieto MD Lymphocytes (Bld) [#/Vol] 1.76 10*3/uL Normal 1.0-4.8 [facility] Comment on above: Performed By: #### H EPXA, PTT #### [facility] [address] [place] [address] Jack Machine Operator: Rafa Prieto MD Lymphocytes/100 WBC (Bld) 22 % Low 24-44 [facility] Comment on above: Performed By: #### H EPXA, PTT #### [facility] [address] [place] [address] Jack Machine Operator: Rafa Prieto MD Monocytes (Bld) [#/Vol] 1.68 10*3/uL High 0.1-0.8 [facility] Comment on above: Performed By: #### H EPXA, PTT #### [facility] [address] [place] [address] Jack Machine Operator: Rafa Prieto MD Monocytes/100 WBC (Bld) 21 % High 1-7 [facility] Comment on above: Performed By: #### H EPXA, PTT #### [facility] [address] [place] [address] Jack Machine Operator: Rafa Prieto MD Morphology [place] (Bld) [Interp] ANISOCYTOSIS PRESENT Normal [facility] Comment on above: Performed By: #### H EPXA, PTT #### [address] [address] Jack Machine Operator: Rafa Prieto MD Neutrophil (Seg) 56 % Normal 36-66 [facility] Comment on above: Performed By: #### H EPXA, PTT #### [address] [address] Jack Machine Operator: Rafa Prieto MD Erythrocyte distribution width (RBC) [Ratio] 15.9 % High 11.8-14.4 [facility] Comment on above: Performed By: #### H EPXA, PTT #### [facility] [address] [place] [address] Jack Machine Operator: Rafa Prieto MD Hematocrit (Bld) [Volume fraction] 40.7 % Normal 40.7-50.3 [facility] Comment on above: Performed By: #### H EPXA, PTT #### [facility] [address] [place] [address] Jack Machine Operator: Rafa Prieto MD Hemoglobin (Bld) [Mass/Vol] 11.6 g/dL Low 13.0-17.0 [facility] Comment on above: Performed By: #### H EPXA, PTT #### [facility] [address] [place] [address] Jack Machine Operator: Rafa Prieto MD MCH (RBC) [Entitic mass] 24.0 pg Low 25.2-33.5 [facility] Comment on above: Performed By: #### H EPXA, PTT #### [facility] [address] [place] [address] Jack Machine Operator: Rafa Prieto MD MCHC (RBC) [Mass/Vol] 28.5 g/dL Normal 28.4-34.8 [facility] Comment on above: Performed By: #### H EPXA, PTT #### [address] [address] Jack Machine Operator: Rafa Prieto MD MCV (RBC) [Entitic vol] 84.1 fL Normal 82.6-102.9 [facility] Comment on above: Performed By: #### H EPXA, PTT #### [address] [address] Jack Machine Operator: Rafa Prieto MD NRBC Automated 0.0 per 100 WBC Normal 0.0 [facility] Comment on above: Performed By: #### H EPXA, PTT #### [address] [address] Jack Machine Operator: Rafa Prieto MD Platelet mean volume (Bld) [Entitic vol] 11.1 fL Normal 8.1-13.5 [facility] Comment on above: Performed By: #### H EPXA, PTT #### [address] [address] Jack Machine Operator: Rafa Prieto MD Platelets (Bld) [#/Vol] 212 10*3/uL Normal 138-453 [facility] Comment on above: Performed By: #### H EPXA, PTT #### [address] [address] Jack Machine Operator: Rafa Prieto MD RBC (Bld) [#/Vol] 4.84 10*6/uL Normal 4.21-5.77 [facility] Comment on above: Performed By: #### H EPXA, PTT #### [address] [address] Jack Machine Operator: Rafa Prieto MD WBC (Bld) [#/Vol] 8.0 10*3/uL Normal 3.5-11.3 [facility] Comment on above: Performed By: #### H EPXA, PTT #### [facility] [address] [place] [address] Jack Machine Operator: Rafa Prieto MD Glucose (POC)on 01-02-2024 Glucose [Mass/Vol] 116 mg/dL High 74-100 [facility] Glucose,Whole Bloodon 2023 Glucose [Mass/Vol] 165 mg/dL High 75-110 [facility] Glucose [Mass/Vol] 209 mg/dL High 75-110 [facility] Glucose [Mass/Vol] 115 mg/dL High 75-110 [facility] Glucose [Mass/Vol] 78 mg/dL Normal 75-110 [facility] Heparin Anti-Xaon 01-02-2024 Heparin Anti-Xa 0.55 IU/L Normal [facility] Comment on above: Performed By: #### H EPXA, PTT #### [facility] [address] [place] [address] Jack Machine Operator: Rafa Prieto MD Heparin Anti-Xa 0.63 IU/L Normal [facility] Comment on above: Performed By: #### H EPXA ####[facility] [address] [place] [address] Lab Director: Rafa Prieto MD APTTon 01-01-2024 aPTT Coag (Bld) [Time] 123.5 s Critically high 23.0-36.5 [facility] Comment on above: Result Comment: IV Heparin Therapy Range: 66.0-92.0 sec Performed By: #### H EPXA, PTT #### [facility] [address] [place] [address] Jack Machine Operator: Rafa Prieto MD aPTT Coag (Bld) [Time] 82.0 s High 23.0-36.5 [facility] Comment on above: Result Comment: IV Heparin Therapy Range: 66.0-92.0 sec Performed By: #### H EPXA, PTT #### [facility] [address], [place] 1990508 Jack Machine Operator: Rafa Prieto MD aPTT Coag (Bld) [Time] 122.3 s Critically high 23.0-36.5 [facility] Comment on above: Result Comment: IV Heparin Therapy Range: 66.0-92.0 sec Performed By: #### T ROPI #### [facility] [address], [place] [id number] Jack Machine Operator: Rafa Prieto MD Basic Metab w/rfx MGon 01-01 Creatinine [Mass/Vol] 0.8 mg/dL Normal 0.7-1.2 [facility] Comment on above: Result Comment: ICTE MANSOOR SPECIMEN Performed By: #### B MPX, CDP, TROPI, MG ####[facility] [place], [place] [phone] Lab Director: Rafa Prieto MD GFR/1.73 sq M.predicted among non-blacks MDRD (S/P/Bld) [Vol rate/Area] mL/min/{1.73_m2} Normal >60 [facility] Comment on above: Result Comment: These results [...] By: #### B MPX, CDP, TROPI, MG ####[facility] [address] [place], [place] [id number] Lab Director: Rafa Prieto MD Potassium [Moles/Vol] 3.5 mmol/L Low 3.7-5.3 [facility] Comment on above: Performed By: #### B MPX, CDP, TROPI, MG ####[facility] [address] [place] [address] Lab Director: Rafa Prieto MD Anion gap [Moles/Vol] 13 mmol/L Normal 9-17 [facility] Comment on above: Performed By: #### B MPX, CDP, TROPI, MG ####[facility] [address] [place], [place] [phone] Director: Rafa Prieto MD Calcium [Mass/Vol] 8.3 mg/dL Low 8.6-10.4 [facility] Comment on above: Performed By: #### B MPX, CDP, TROPI, MG ####[facility] [address] [place], [place] [phone])[phone] Director: Rafa Prieto MD Chloride [Moles/Vol] 99 mmol/L Normal 98-107 [facility] Comment on above: Performed By: #### B MPX, CDP, TROPI, MG ####[facility] [address] [place], [place] [phone] Director: Rafa Prieto MD CO2 [Moles/Vol] 25 mmol/L Normal 20-31 [facility] Comment on above: Performed By: #### B MPX, CDP, TROPI, MG ####[facility] [address] [place], [place] [phone] Director: Rafa Prieto MD Glucose [Mass/Vol] 89 mg/dL Normal 70-99 [facility] Comment on above: Performed By: #### B MPX, CDP, TROPI, MG ####[facility] [address] [place], [place] [phone] Director: Rafa Prieto MD Sodium [Moles/Vol] 137 mmol/L Normal 135-144 [facility] Comment on above: Performed By: #### B MPX, CDP, TROPI, MG ####[facility] [address] [place] [address] Lab Director: Rafa Prieto MD Urea nitrogen [Mass/Vol] 20 mg/dL Normal 6-20 [facility] Comment on above: Performed By: #### B MPX, CDP, TROPI, MG ####[facility] [address] [place] [address] Lab Director: Rafa Prieto MD Basic Metabolic Profon 01-01 Creatinine [Mass/Vol] 0.7 mg/dL Normal 0.7-1.2 [facility] Comment on above: Result Comment: ICTE MANSOOR SPECIMEN Performed By: #### T ROPI #### [address] [address] Jack Machine Operator: Rafa Prieto MD GFR/1.73 sq M.predicted among non-blacks MDRD (S/P/Bld) [Vol rate/Area] mL/min/{1.73_m2} Normal >60 [facility] Comment on above: Result Comment: These results [...] secretion. Performed By: #### T ROPI #### [facility] [address] [place] [address] Jack Machine Operator: Rafa Prieto MD Anion gap [Moles/Vol] 12 mmol/L Normal 9-17 [facility] Comment on above: Performed By: #### T ROPI #### [facility] [address] [place] [address] Jack Machine Operator: Rafa Prieto MD Calcium [Mass/Vol] 8.3 mg/dL Low 8.6-10.4 [facility] Comment on above: Performed By: #### T ROPI #### [address] [address] Jack Machine Operator: Rafa Prieto MD Chloride [Moles/Vol] 98 mmol/L Normal 98-107 [facility] Comment on above: Performed By: #### T ROPI #### [address] [address] Jack Machine Operator: Rafa Prieto MD CO2 [Moles/Vol] 25 mmol/L Normal 20-31 [facility] Comment on above: Performed By: #### T ROPI #### [address] [address] Jack Machine Operator: Rafa Prieto MD Glucose [Mass/Vol] 125 mg/dL High 70-99 [facility] Comment on above: Performed By: #### T ROPI #### [address] [address] Jack Machine Operator: Rafa Prieto MD Potassium [Moles/Vol] 3.6 mmol/L Low 3.7-5.3 [facility] Comment on above: Performed By: #### T ROPI #### [address] [address] Jack Machine Operator: Rafa Prieto MD Sodium [Moles/Vol] 135 mmol/L Normal 135-144 [facility] Comment on above: Performed By: #### T ROPI #### [address] [address] Jack Machine Operator: Rafa Prieto MD Urea nitrogen [Mass/Vol] 22 mg/dL High 6-20 [facility] Comment on above: Performed By: #### T ROPI #### [address] [address] Jack Machine Operator: Rafa Prieto MD Brain Natri. Peptideon 01-01 Natriuretic peptide B (Bld) [Mass/Vol] 2437 pg/mL High <300 [facility] Comment on above: Result Comment: An age-independent cutoff point of 300 pg/ml has a 98% negative predictive value excluding acute heart failure. Performed By: #### T ROPI #### [facility] [address] [place] [address] Jack Machine Operator: Rafa Prieto MD CBC with Diffon 01-01-2024 Abs. Basophil 0.00 k/uL Normal 0.00-0.20 [facility] Comment on above: Performed By: #### B MPX, CDP, TROPI, MG ####[facility] [address] [place], [place] [address])[phone] Director: Rafa Prieto MD Abs.Imm.Granulocyte 0.00 k/uL Normal 0.00-0.30 [facility] Comment on above: Performed By: #### B MPX, CDP, TROPI, MG ####[facility] [address] [place], [place] [address])[phone] Director: Rafa Prieto MD Abs.Neutrophil (Seg) 4.00 k/uL Normal 1.50-8.10 [facility] Comment on above: Performed By: #### B MPX, CDP, TROPI, MG ####[facility] [address] [place], [place] [address])[phone] Director: Rafa Prieto MD Basophils/100 WBC (Bld) 0 % Normal 0-2 [facility] Comment on above: Performed By: #### B MPX, CDP, TROPI, MG ####[facility] [address] [place], [place] [address])[phone] Director: Rafa Prieto MD Eosinophils (Bld) [#/Vol] 0.00 10*3/uL Normal 0.00-0.44 [facility] Comment on above: Performed By: #### B MPX, CDP, TROPI, MG ####[facility] [address] [place], [place] [phone] Director: Rafa Prieto MD Eosinophils/100 WBC (Bld) 0 % Low 1-4 [facility] Comment on above: Performed By: #### B MPX, CDP, TROPI, MG ####[facility] [address] [place], [place] [address])[phone] Director: Rafa Prieto MD Immature granulocytes/100 WBC (Bld) 0 % Normal 0 [facility] Comment on above: Performed By: #### B MPX, CDP, TROPI, MG ####[facility] [address] [place], [place] [address])[phone] Director: Rafa Prieto MD Lymphocytes (Bld) [#/Vol] 1.70 10*3/uL Normal 1.10-3.70 [facility] Comment on above: Performed By: #### B MPX, CDP, TROPI, MG ####[facility] [address] [place], [place] [id number])[phone] Director: Rafa Prieto MD Lymphocytes/100 WBC (Bld) 23 % Low 24-43 [facility] Comment on above: Performed By: #### B MPX, CDP, TROPI, MG ####[facility] [address] [place], [place] [address])[phone] Director: Rafa Prieto MD Monocytes (Bld) [#/Vol] 1.70 10*3/uL High 0.10-1.20 [facility] Comment on above: Performed By: #### B MPX, CDP, TROPI, MG ####[facility] [address] [place], [place] [phone] Director: Rafa Prieto MD Monocytes/100 WBC (Bld) 23 % High 3-12 [facility] Comment on above: Performed By: #### B MPX, CDP, TROPI, MG ####[facility] [address] [place] [address] Lab Director: Rafa Prieto MD Morphology Rancho (Bld) [Interp] ANISOCYTOSIS PRESENT Normal [facility] Comment on above: Result Comment: MICR OCYTOSIS PRESENT Performed By: #### B MPX, CDP, TROPI, MG ####[facility] [address] [place], [place] [phone] Director: Rafa Prieto MD Neutrophil (Seg) 54 % Normal 36-65 [facility] Comment on above: Performed By: #### B MPX, CDP, TROPI, MG ####[facility] [address] [place] [address] Lab Director: Rafa Prieto MD Erythrocyte distribution width (RBC) [Ratio] 15.8 % High 11.8-14.4 [facility] Comment on above: Performed By: #### B MPX, CDP, TROPI, MG ####[facility] [address] [place] [address] Lab Director: Rafa Prieto MD Hematocrit (Bld) [Volume fraction] 40.9 % Normal 40.7-50.3 [facility] Comment on above: Performed By: #### B MPX, CDP, TROPI, MG ####[facility] [address] [place] [address] Lab Director: Rafa Prieto MD Hemoglobin (Bld) [Mass/Vol] 12.3 g/dL Low 13.0-17.0 [facility] Comment on above: Performed By: #### B MPX, CDP, TROPI, MG ####[facility] [address] [place] [address] Lab Director: Rafa Prieto MD MCH (RBC) [Entitic mass] 24.2 pg Low 25.2-33.5 [facility] Comment on above: Performed By: #### B MPX, CDP, TROPI, MG ####[facility] [address] [place], [place] [address])[phone] Director: Rafa Prieto MD MCHC (RBC) [Mass/Vol] 30.1 g/dL Normal 28.4-34.8 [facility] Comment on above: Performed By: #### B MPX, CDP, TROPI, MG ####[facility] [address] [place], [place] [phone])[phone] Director: Rafa Prieto MD MCV (RBC) [Entitic vol] 80.5 fL Low 82.6-102.9 [facility] Comment on above: Performed By: #### B MPX, CDP, TROPI, MG ####[facility] [address] [place], [place] [address])[phone] Director: Rafa Prieto MD NRBC Automated 0.0 per 100 WBC Normal 0.0 [facility] Comment on above: Performed By: #### B MPX, CDP, TROPI, MG ####[facility] [address] [place], [place] [address])[phone] Director: Rafa Prieto MD Platelet mean volume (Bld) [Entitic vol] 11.0 fL Normal 8.1-13.5 [facility] Comment on above: Performed By: #### B MPX, CDP, TROPI, MG ####[facility] [address] [place], [place] [id number])[phone] Director: Rafa Prieto MD Platelets (Bld) [#/Vol] 246 10*3/uL Normal 138-453 [facility] Comment on above: Performed By: #### B MPX, CDP, TROPI, MG ####[facility] [address] [place], [place] 19160419)[phone] Director: Rafa Prieto MD RBC (Bld) [#/Vol] 5.08 10*6/uL Normal 4.21-5.77 [facility] Comment on above: Performed By: #### B MPX, CDP, TROPI, MG ####[facility] [address] [place] [address] Lab Director: Rafa Prieto MD WBC (Bld) [#/Vol] 7.4 10*3/uL Normal 3.5-11.3 [facility] Comment on above: Performed By: #### B MPX, CDP, TROPI, MG ####[facility] [address] [place], [place] [address])[phone] Director: Rafa Prieto MD Abs. Basophil 0.00 k/uL Normal 0.0-0.2 [facility] Comment on above: Performed By: #### T ROPI #### [place] [address] Jack Machine Operator: Rafa Prieto MD Abs.Imm.Granulocyte 0.00 k/uL Normal 0.00-0.30 [facility] Comment on above: Performed By: #### T ROPI #### [address] [address] Jack Machine Operator: Rafa Prieto MD Abs.Neutrophil (Seg) 5.76 k/uL Normal 1.8-7.7 [facility] Comment on above: Performed By: #### T ROPI #### [place] [address] Jack Machine Operator: Rafa Prieto MD Basophils/100 WBC (Bld) 0 % Normal 0-2 [facility] Comment on above: Performed By: #### T ROPI #### [address] [address] Jack Machine Operator: Rafa Prieto MD Eosinophils (Bld) [#/Vol] 0.00 10*3/uL Normal 0.0-0.4 [facility] Comment on above: Performed By: #### T ROPI #### [address] [address] Jack Machine Operator: Rafa Prieto MD Eosinophils/100 WBC (Bld) 0 % Low 1-4 [facility] Comment on above: Performed By: #### T ROPI #### [address] [address] Jack Machine Operator: Rafa Prieto MD Immature granulocytes/100 WBC (Bld) 0 % Normal 0 [facility] Comment on above: Performed By: #### T ROPI #### [address] [address] Jack Machine Operator: Rafa Prieto MD Lymphocytes (Bld) [#/Vol] 1.28 10*3/uL Normal 1.0-4.8 [facility] Comment on above: Performed By: #### T ROPI #### [address] [address] Jack Machine Operator: Rafa Prieto MD Lymphocytes/100 WBC (Bld) 16 % Low 24-44 [facility] Comment on above: Performed By: #### T ROPI #### [address] [address] Jack Machine Operator: Rafa Prieto MD Monocytes (Bld) [#/Vol] 0.96 10*3/uL High 0.1-0.8 [facility] Comment on above: Performed By: #### T ROPI #### [address] [address] Jack Machine Operator: Rafa Prieto MD Monocytes/100 WBC (Bld) 12 % High 1-7 [facility] Comment on above: Performed By: #### T ROPI #### [address] [address] Jack Machine Operator: Rafa Prieto MD Morphology Rancho (Bld) [Interp] ANISOCYTOSIS PRESENT Normal [facility] Comment on above: Result Comment: MICR OCYTOSIS PRESENT Performed By: #### T ROPI #### [address] [address] Jack Machine Operator: Rafa Prieto MD Neutrophil (Seg) 72 % High 36-66 [facility] Comment on above: Performed By: #### T ROPI #### [address] [address] Jack Machine Operator: Rafa Prieto MD Nucleated RBC'S 1 per 100 WBC High 0 [facility] Comment on above: Performed By: #### T ROPI #### [address] [address] Jack Machine Operator: Rafa Prieto MD Erythrocyte distribution width (RBC) [Ratio] 15.9 % High 11.8-14.4 [facility] Comment on above: Performed By: #### T ROPI #### [address] [address] Jack Machine Operator: Rafa Prieto MD Hematocrit (Bld) [Volume fraction] 41.5 % Normal 40.7-50.3 [facility] Comment on above: Performed By: #### T ROPI #### [address] [address] Jack Machine Operator: Rafa Prieto MD Hemoglobin (Bld) [Mass/Vol] 12.7 g/dL Low 13.0-17.0 [facility] Comment on above: Performed By: #### T ROPI #### [address] [address] Jack Machine Operator: Rafa Prieto MD MCH (RBC) [Entitic mass] 24.3 pg Low 25.2-33.5 [facility] Comment on above: Performed By: #### T ROPI #### [address] [address] Jack Machine Operator: Rafa Prieto MD MCHC (RBC) [Mass/Vol] 30.6 g/dL Normal 28.4-34.8 [facility] Comment on above: Performed By: #### T ROPI #### [address] [address] Jack Machine Operator: Rafa Prieto MD MCV (RBC) [Entitic vol] 79.5 fL Low 82.6-102.9 [facility] Comment on above: Performed By: #### T ROPI #### [address] [address] Jack Machine Operator: Rafa Prieto MD NRBC Automated 0.3 per 100 WBC High 0.0 [facility] Comment on above: Performed By: #### T ROPI #### [address] [address] Jack Machine Operator: Rafa Prieto MD Platelet mean volume (Bld) [Entitic vol] 10.9 fL Normal 8.1-13.5 [facility] Comment on above: Performed By: #### T ROPI #### [address] [address] Jack Machine Operator: Rafa Prieto MD Platelets (Bld) [#/Vol] 265 10*3/uL Normal 138-453 [facility] Comment on above: Performed By: #### T ROPI #### [address] [address] Jack Machine Operator: Rafa Prieto MD RBC (Bld) [#/Vol] 5.22 10*6/uL Normal 4.21-5.77 [facility] Comment on above: Performed By: #### T ROPI #### [address] [id number] Jack Machine Operator: Rafa Prieto MD WBC (Bld) [#/Vol] 8.0 10*3/uL Normal 3.5-11.3 [facility] Comment on above: Performed By: #### T ROPI #### [address] [id number] Jack Machine Operator: Rafa Prieto MD Glucose,Whole Bloodon 2023 Glucose [Mass/Vol] 72 mg/dL Low 75-110 [facility] Glucose [Mass/Vol] 60 mg/dL Low 75-110 [facility] Glucose [Mass/Vol] 44 mg/dL Low -110 [facility] Comment on above: Result Comment: Alesia ical Noted Glucose [Mass/Vol] 91 mg/dL Normal -110 [facility] Glucose [Mass/Vol] 66 mg/dL Low 75-110 [facility] Glucose [Mass/Vol] 42 mg/dL Low 75-110 [facility] Comment on above: Result Comment: Alesia ical Noted Glucose [Mass/Vol] 124 mg/dL High 75-110 [facility] Heparin Anti-Xaon 01-01-2024 Heparin Anti-Xa 0.97 IU/L Normal [facility] Comment on above: Performed By: #### H EPXA #### [facility] [address] [place] [address] Jack Machine Operator: Rafa Prieto MD Heparin Anti-Xa 0.40 IU/L Normal [facility] Comment on above: Performed By: #### H EPXA, PTT #### [facility] [address] [place] [address] Jack Machine Operator: Rafa Prieto MD Heparin Anti-Xa 0.32 IU/L Normal [facility] Comment on above: Performed By: #### H EPXA, PTT #### [facility] [address] [place] [id number] Jack Machine Operator: Rafa Prieto MD Heparin Anti-Xa 0.29 IU/L Normal [facility] Comment on above: Performed By: #### T ROPI #### [facility] [address] [place] [address] Jack Machine Operator: Rafa Prieto MD MRSA, DNA, Nasalon MRSA, DNA, Nasal Negative Normal NEG [facility] Comment on above: Result Comment: NEGA TIVE: MRSA DNA not detected by nucleic acid amplification. Results should be used as an adjunct to nosocomial control efforts to identify patients needing enhanced precautions. The test is not intended to identify patients with staphylococcal infections. Results should not be used to guide or monitor treatment for MRSA infections. Performed By: #### M RSANO ####[facility] [address] [place] [address] Lab Director: Rafa Prieto MD Specimen Description .NASAL SWAB Normal [facility] Comment on above: Performed By: #### M RSANO ####[facility] [address] [place] [address] Lab Director: Rafa Prieto MD Magnesiumon 6 Magnesium [Mass/Vol] 1.7 mg/dL Normal 1.6-2.6 [facility] Comment on above: Performed By: #### B MPX, CDP, TROPI, MG ####[facility] [address] [place] [address] Lab Director: Rafa Prieto MD Troponinon 01-01-2024 Troponin, High Sens 103 ng/L Critically high 0-22 [facility] Comment on above: Result Comment: High Sensitivity Troponin values cannot be compared with other Troponin methodologies. Previous Alert Value Reported Performed By: #### B MPX, CDP, TROPI, MG ####[facility] [address] [place] [address] Lab Director: Rafa Prieto MD Troponin, High Sens 107 ng/L Critically high 0-22 [facility] Comment on above: Result Comment: High Sensitivity Troponin values cannot be compared with other Troponin methodologies. Previous Alert Value Reported Performed By: #### T ROPI ####[facility] TherapeuticsJilpspxygwbo[address] [place] [address] Lab Director: Rafa Prieto MD Troponin, High Sens 107 ng/L Critically high 0-22 [facility] Comment on above: Result Comment: High Sensitivity Troponin values cannot be compared with other Troponin methodologies. Previous Alert Value Reported Performed By: #### T ROPI #### [facility] [address] [address] Jack Machine Operator: Rafa Prieto MD Troponin, High Sens 104 ng/L Critically high 0-22 [facility] Comment on above: Result Comment: High Sensitivity Troponin values cannot be compared with other Troponin methodologies. Performed By: #### T ROPI #### [address] [address] Jack Machine Operator: Rafa Prieto MD Type + Screenon 01-01-2024 Type + Screen Sample Expiration 01/04/2024,2359 Arm Band Number [id number] ABO/Rh(D) A POSITIVE Antibody Screen NEGATIVE Normal [facility] Comment on above: Performed By: #### T YS ####[address] [address] Lab Director: Rafa Prieto MD Urinalysis, Routineon 2023 Bilirubin, SemiQt,Ur Negative Normal NEG [facility] Comment on above: Performed By: #### H EPXA, PTT #### [facility] [address] [place] [address] Jack Machine Operator: Rafa Prieto MD Blood, Urine LARGE Abnormal NEG [facility] Comment on above: Performed By: #### H EPXA, PTT #### [facility] [address] [place] [address] Jack Machine Operator: Rafa Prieto MD Clarity (U) Clear Normal CLEAR [facility] Comment on above: Performed By: #### H EPXA, PTT #### [facility] [address] [place] [address] Jack Machine Operator: Rafa Prieto MD Color (U) Dark Yellow Abnormal YEL [facility] Comment on above: Performed By: #### H EPXA, PTT #### [facility] [address] [place] [address] Jack Machine Operator: Rafa Prieto MD Glucose Ql (U) Negative Normal NEG [facility] Comment on above: Performed By: #### H EPXA, PTT #### [facility] [address] [place] [address] Jack Machine Operator: Rafa Prieto MD Ketones Ql (U) Negative Normal NEG [facility] Comment on above: Performed By: #### H EPXA, PTT #### [address] [address] Jack Machine Operator: Rafa Prieto MD Leukocyte esterase Test strip Ql (U) MODERATE Abnormal NEG [facility] Comment on above: Performed By: #### H EPXA, PTT #### [facility] [facility] [address] [place] [id number] Jack Machine Operator: Rafa Prieto MD Nitrite,Ur Negative Normal NEG [facility] Comment on above: Performed By: #### H EPXA, PTT #### [facility] [address] [place] [address] Jack Machine Operator: Rafa Prieto MD PH,Ur 5.5 Normal 5.0-8.0 [facility] Comment on above: Performed By: #### H EPXA, PTT #### [facility] [address] [place] [phone] Jack Machine Operator: Rafa Prieto MD Protein Ql (U) TRACE Abnormal NEG [facility] Comment on above: Performed By: #### H EPXA, PTT #### [facility] [address] [place] [address] Jack Machine Operator: Rafa Prieto MD Spec. Costa,Ur 1.024 Normal 1.005-1.030 [facility] Comment on above: Performed By: #### H EPXA, PTT #### [facility] [employer] [address] [place] [address] 89975 Jack Machine Operator: Rafa Prieto MD Urobilinogen,Ur ELEVATED Normal 0.0-1.0 [facility] Comment on above: Performed By: #### H EPXA, PTT #### [facility] [address] [place] [address]443 Jack Machine Operator: Rafa Prieto MD Urinalysis,Microon 4 Epithelial cells LM Ql (Urine sed) 5 TO 10 Normal 0-5 [facility] Comment on above: Performed By: #### H EPXA, PTT #### [facility] [address] [place] [id number] Jack Machine Operator: Rafa Prieto MD Urine RBC's TOO NUMEROUS TO COUNT Normal 0-2 [facility] Comment on above: Performed By: #### H EPXA, PTT #### [facility] [address] [place] [address] 13952 Jack Machine Operator: Rafa Prieto MD Urine WBC's 10 TO 20 Normal 0-5 [facility] Comment on above: Performed By: #### H EPXA, PTT #### [facility] [address] [place] [address] [id number] Jack Machine Operator: Rafa Prieto MD DENNY Antinuclear Antibodieson 08-09-2023 Antinuclear Abs, IFA Negative Normal . [facility] Comment on above: Result Comment: Nega tive <1:80 Borderline 1:80 Positive >1:80 ICAP nomenclature: AC-0 For more information about Hep-2 cell patterns use ANApatterns.org, the official website for the International Consensus on Antinuclear Antibody (DENNY) Patterns (ICAP). Performed at: [address] [id number] Jack Machine Operator: Lester Nunez PhD, Phone: [phone] Performed By: #### A NA, [id number] #### [facility] , #### T4F, CRP, CK, CMP, ESR, CBC, TSH3 #### [address] C-Reactive Proteinon 023 C-Reactive Protein 0.5 mg/dL Normal 0.0-0.5 [facility] Comment on above: Performed By: #### A NA, [id number] #### [facility] , #### T4F, CRP, CK, CMP, ESR, CBC, TSH3 #### [address] Complete Blood Count Auto Di ffon 08-09-2023 Basophils (Bld) [#/Vol] 0.0 10*3/uL Normal 0.0-0.2 [facility] Comment on above: Performed By: #### A NA, [id number] #### [facility] , #### T4F, CRP, CK, CMP, ESR, CBC, TSH3 #### [address] Basophils/100 WBC (Bld) 0.6 % Normal . [facility] Comment on above: Performed By: #### A NA, [id number] #### [facility] , #### T4F, CRP, CK, CMP, ESR, CBC, TSH3 #### [address] Eosinophils (Bld) [#/Vol] 0.1 10*3/uL Normal 0.0-0.45 [facility] Comment on above: Performed By: #### A NA, [id number] #### [facility] , #### T4F, CRP, CK, CMP, ESR, CBC, TSH3 #### [address] Eosinophils/100 WBC (Bld) 1.4 % Normal . [facility] Comment on above: Performed By: #### A NA, [id number] #### [facility] , #### T4F, CRP, CK, CMP, ESR, CBC, TSH3 #### [address] Erythrocyte distribution width (RBC) [Ratio] 13.1 % Normal 12.0-14.8 [facility] Comment on above: Performed By: #### A NA, [id number] #### [facility] , #### T4F, CRP, CK, CMP, ESR, CBC, TSH3 #### [address] Hematocrit (Bld) [Volume fraction] 43.8 % Normal 38.8-50.0 [facility] Comment on above: Performed By: #### A NA, [id number] #### [facility] , #### T4F, CRP, CK, CMP, ESR, CBC, TSH3 #### [address] Hemoglobin (Bld) [Mass/Vol] 14.4 g/dL Normal 13.0-17.0 [facility] Comment on above: Performed By: #### A NA, [id number] #### [facility] , #### T4F, CRP, CK, CMP, ESR, CBC, TSH3 #### [address] Lymphocytes (Bld) [#/Vol] 1.7 10*3/uL Normal 1.00-4.8 [facility] Comment on above: Performed By: #### A NA, [id number] #### [facility] , #### T4F, CRP, CK, CMP, ESR, CBC, TSH3 #### [address] Lymphocytes/100 WBC (Bld) 24.1 % Normal . [facility] Comment on above: Performed By: #### A NA, HLAB27 #### [facility] , #### T4F, CRP, CK, CMP, ESR, CBC, TSH3 #### [address] MCH (RBC) [Entitic mass] 27.6 pg Normal 27.5-35.2 [facility] Comment on above: Performed By: #### A NA, [id number] #### [facility] , #### T4F, CRP, CK, CMP, ESR, CBC, TSH3 #### [address] MCV (RBC) [Entitic vol] 84.1 fL Normal 83.5-101 [facility] Comment on above: Performed By: #### A NA, HLAB27 #### [facility] , #### T4F, CRP, CK, CMP, ESR, CBC, TSH3 #### [address] Mean Corpuscular HGB Conc 32.8 g/dL Normal 32.5-35.6 [facility] Comment on above: Performed By: #### A NA, [id number] #### [facility] , #### T4F, CRP, CK, CMP, ESR, CBC, TSH3 #### [address] Monocytes (Bld) [#/Vol] 0.4 10*3/uL Normal 0.0-0.8 [facility] Comment on above: Performed By: #### A NA, HLAB27 #### [facility] , #### T4F, CRP, CK, CMP, ESR, CBC, TSH3 #### [place] [address] [place] Monocytes/100 WBC (Bld) 5.9 % Normal . [facility] Comment on above: Performed By: #### A NA, [id number] #### [facility] , #### T4F, CRP, CK, CMP, ESR, CBC, TSH3 #### [address] Neutrophils (Bld) [#/Vol] 4.9 10*3/uL Normal 1.8-7.7 [facility] Comment on above: Performed By: #### A NA, HLAB27 #### [facility] , #### T4F, CRP, CK, CMP, ESR, CBC, TSH3 #### [address] Neutrophils/100 WBC (Bld) 68.0 % Normal . [facility] Comment on above: Performed By: #### A NA, HLAB27 #### [facility] , #### T4F, CRP, CK, CMP, ESR, CBC, TSH3 #### [place] [address] [place] NRBC% 0.2 /100{WBC} Normal 0-0.5 [facility] Comment on above: Performed By: #### A NA, [id number] #### [facility] , #### T4F, CRP, CK, CMP, ESR, CBC, TSH3 #### [place] [address] [place] Platelet mean volume (Bld) [Entitic vol] 10.9 fL High 6.6-10.1 [facility] Comment on above: Performed By: #### A NA, [id number] #### [facility] , #### T4F, CRP, CK, CMP, ESR, CBC, TSH3 #### [place] [address] [place] Platelets (Bld) [#/Vol] 216 10*3/uL Normal 150-450 [facility] Comment on above: Performed By: #### A NA, HLAB27 #### [facility] , #### T4F, CRP, CK, CMP, ESR, CBC, TSH3 #### [facility] [address] [place] [address] RBC (Bld) [#/Vol] 5.20 10*6/uL Normal 3.90-5.60 [facility] Comment on above: Performed By: #### A NA, [id number] #### [facility] , #### T4F, CRP, CK, CMP, ESR, CBC, TSH3 #### [facility] [address] [place] [address] WBC (Bld) [#/Vol] 7.1 10*3/uL Normal 4.1-10.5 [facility] Comment on above: Performed By: #### A NA, [id number] #### [facility] , #### T4F, CRP, CK, CMP, ESR, CBC, TSH3 #### [address] Comprehensive Metabolic Pane chery 08-09-2023 Albumin [Mass/Vol] 4.6 g/dL Normal 3.5-5.7 [facility] Comment on above: Performed By: #### A NA, [id number] #### [facility] , #### T4F, CRP, CK, CMP, ESR, CBC, TSH3 #### [facility] [address] [place] [address] Albumin/Globulin [Mass ratio] 1.3 {ratio} Normal [facility] Comment on above: Performed By: #### A NA, [id number] #### [facility] , #### T4F, CRP, CK, CMP, ESR, CBC, TSH3 #### [facility] [address] [place] [address] ALP [Catalytic activity/Vol] 44 U/L Normal 34-104 [facility] Comment on above: Performed By: #### A NA, [id number] #### [facility] , #### T4F, CRP, CK, CMP, ESR, CBC, TSH3 #### [facility] [address] ALT [Catalytic activity/Vol] 50 U/L Normal 7-52 [facility] Comment on above: Performed By: #### A NA, HLAB27 #### [facility] , #### T4F, CRP, CK, CMP, ESR, CBC, TSH3 #### [facility] [address] [place] [address] Anion gap [Moles/Vol] 14.9 mmol/L Normal 6.0-15.0 [facility] Comment on above: Performed By: #### A NA, [id number] #### [facility] , #### T4F, CRP, CK, CMP, ESR, CBC, TSH3 #### [facility] [address] [place] [address] AST [Catalytic activity/Vol] 33 U/L Normal 13-39 [facility] Comment on above: Performed By: #### A NA, HLAB27 #### [facility] , #### T4F, CRP, CK, CMP, ESR, CBC, TSH3 #### [facility] [address] [place] [address] [place] Bilirubin [Mass/Vol] 0.4 mg/dL Normal 0.3-1.0 [facility] Comment on above: Performed By: #### A NA, HLAB27 #### [facility] , #### T4F, CRP, CK, CMP, ESR, CBC, TSH3 #### [facility] [address] Calcium [Mass/Vol] 10.2 mg/dL Normal 8.6-10.3 [facility] Comment on above: Performed By: #### A NA, HLAB27 #### [facility] , #### T4F, CRP, CK, CMP, ESR, CBC, TSH3 #### [address] Chloride [Moles/Vol] 97 mmol/L Low 98-107 [facility] Comment on above: Performed By: #### A NA, HLAB27 #### [facility] , #### T4F, CRP, CK, CMP, ESR, CBC, TSH3 #### [address] CO2 [Moles/Vol] 29.7 mmol/L Normal 21.0-31.0 [facility] Comment on above: Performed By: #### A NA, HLAB27 #### [facility] , #### T4F, CRP, CK, CMP, ESR, CBC, TSH3 #### [address] Creatinine [Mass/Vol] 0.80 mg/dL Normal 0.70-1.30 [facility] Comment on above: Performed By: #### A NA, HLAB27 #### [facility] , #### T4F, CRP, CK, CMP, ESR, CBC, TSH3 #### [address] GFR/1.73 sq M.predicted MDRD (S/P/Bld) [Vol rate/Area] mL/min/{1.73_m2} [facility] Comment on above: Performed By: #### A NA, HLAB27 #### [facility] , #### T4F, CRP, CK, CMP, ESR, CBC, TSH3 #### [facility] [address] [place] [address] Globulin (S) [Mass/Vol] 3.5 g/dL [facility] Comment on above: Performed By: #### A NA, HLAB27 #### [facility] , #### T4F, CRP, CK, CMP, ESR, CBC, TSH3 #### [address] Glucose [Mass/Vol] 157 mg/dL High 70-100 [facility] Comment on above: Result Comment: [facility] Glucose Reference Range is dependent on time and content of last meal. Glucose of more than 200 mg/dL in a nonstressed, ambulatory subject supports the diagnosis of Diabetes Mellitus. ADA recommended reference range Performed By: #### A NA, [id number] #### [facility] , #### T4F, CRP, CK, CMP, ESR, CBC, TSH3 #### [address] Potassium [Moles/Vol] 4.6 mmol/L Normal 3.5-5.1 [facility] Comment on above: Performed By: #### A NA, HLAB27 #### [facility] , #### T4F, CRP, CK, CMP, ESR, CBC, TSH3 #### [address] Protein [Mass/Vol] 8.1 g/dL Normal 6.4-8.9 [facility] Comment on above: Performed By: #### A NA, HLAB27 #### [facility] , #### T4F, CRP, CK, CMP, ESR, CBC, TSH3 #### [place] [address] [place] Sodium [Moles/Vol] 137 mmol/L Normal 136-145 [facility] Comment on above: Performed By: #### A NA, HLAB27 #### [facility] , #### T4F, CRP, CK, CMP, ESR, CBC, TSH3 #### [address] Urea nitrogen [Mass/Vol] 10 mg/dL Normal 7-25 [facility] Comment on above: Performed By: #### A NA, HLAB27 #### [facility] , #### T4F, CRP, CK, CMP, ESR, CBC, TSH3 #### [address] Creatine Kinaseon 08-09-2023 CK [Catalytic activity/Vol] 95 U/L Normal 30-223 [facility] Comment on above: Result Comment: PERF ORMED BY: [place] [address] PATHOLOGIST FAMILY [employer] SPECIALIST JOSEPH SAUCEDA M.D. Performed By: #### A NA, [id number] #### [facility] , #### T4F, CRP, CK, CMP, ESR, CBC, TSH3 #### [address] Erythrocyte Sedimentation Ra baldo 08-09-2023 ESR (Bld) [Velocity] 30 mm/h High 0-19 [facility] Comment on above: Result Comment: PERF ORMED BY: [place] [address] PATHOLOGIST [employer]ILY [employer] SPECIALIST JOSEPH SAUCEDA M.D. Performed By: #### A NA, [id number] #### [facility] , #### T4F, CRP, CK, CMP, ESR, CBC, TSH3 #### [address] Free T4 (Free Thyroxine)on 1 Free T4 [Mass/Vol] 0.87 ng/dL Normal 0.61-1.12 [facility] Comment on above: Performed By: #### A NA, HLAB27 #### [facility] , #### T4F, CRP, CK, CMP, ESR, CBC, TSH3 #### [address] HLA B27 Disease Associationo n 08-09-2023 HLA B27 Disease Association Positive Normal . 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 This procedure rules out the B*27:06 and 27:09 alleles, which the literature suggests are not associated with spondyloarthropathies. B27 allele interpretation for all loci based on IMGT/HLA database version 3.44 This test was developed and its performance characteristics determined by [employer]. It has not been cleared or approved by the Food and Drug Administration. [facility] CLIA ID Number [id number] THis test was performed using Polymerase Chain Reaction (PCR) and Sequence Specific Oligonucleotide Probes (SSOP) technique. Sequence Based Typing (SBT) may be used as a supplemental method when necessary. If you have questions, please call [facility] customer service at or email at [email or web address]. Performed at: [address] [place] [phone] Jack Machine Operator: Minerva Pearce PhD, Phone: [phone] PERFORMED BY: [place] [address] PATHOLOGIST FAMILY LAW SPECIALIST JOSEPH SAUCEDA M.D. Performed By: #### A NA, [id number] #### [facility] , #### T4F, CRP, CK, CMP, ESR, CBC, TSH3 #### [place] [id number] [facility] Thyroid Stimulating Hormoneo n 08-09-2023 TSH Qn 2.42 m[IU]/L Normal 0.45-5.33 [facility] Comment on above: Result Comment: PERF ORMED BY: [place] [address] PATHOLOGIST FAMILY [employer] SPECIALIST JOSEPH SAUCEDA M.D. Performed By: #### A NA, [id number] #### [facility] , #### T4F, CRP, CK, CMP, ESR, CBC, TSH3 #### [facility] [address] [place] [address] XR thoracic spine 3V*on XR thoracic spine 3V* [facility] [place] [address] XRay Report Signed Patient: Vitaly Dobson MR#: [id number] : 1970 Acct:[id number] Age/Sex: 52 / M ADM Date: 08/09/23 Loc: ICXD Room: Type: [facility] Attending Dr: Edi Henriquez MD Copies to: Edi Henriquez MD Ordering Provider: Edi Henriquez MD Date of Service: 08/09/23 XR/XR lumbar spine 2-3V*: LOW BACK PAIN ([id number]) XR/XR thoracic spine 3V*: DISH VS ANKYLOSING SPONDYLITIS ([id number]) XR/XR si joints: LOW BACK PAIN CLINICAL [...] Vee Amanda M.D.08/09/2023 4:34 PM Dictation Location: [place] [address] Transcribed By: [facility] 08/09/23 1634 Dictated By: Vee Amanda MD 08/09/23 1608 Signed By: 08/09/23 1634 [facility] XR cervical spine 2-3Von XR cervical spine 2-3V [facility] [employer] Other XR cervical spine 2-3V [address] [place] [address] [employer] Other XR cervical spine 2-3[place] [address] [employer] Other XR cervical spine 2-3V XRay Report [employer] Other XR cervical spine 2-3V Signed [employer] Other XR cervical spine 2-3V Patient: VITALY DOBSON MR#: [id number] [employer] Other XR cervical spine 2-3V : 1970 Acct:[id number] [employer] Other XR cervical spine 2-3V Age/Sex: 52 / M ADM Date: 07/28/23 [employer] Other XR cervical spine 2-3V Loc: [facility] [employer] Other XR cervical spine 2-3V Attending Dr: Semaj Avery D.O. [employer] Other XR cervical spine 2-3V Ordering Physician: Semaj Avery D.O. [employer] Other XR cervical spine 2-3V Date of Service: 07/28/23 [employer] Other XR cervical spine 2-3V Accession Number(s): [id number] [employer] Other XR cervical spine 2-3V cc: Semaj Avery D.O. [employer] Other XR cervical spine 2-3V [address] [place] [employer] Other XR cervical spine 2-3V [place] [address] [employer] Other XR cervical spine 2-3V [employer] Other XR cervical spine 2-3V Patient Name: [employer] Other XR cervical spine 2-3V VITALY DOBSON [employer] Other XR cervical spine 2-3V MRN: [facility]:[id number] date: 1970 Sex: M [employer] Other XR cervical spine 2-3V Assigned Patient Location: [facility] [employer] Other XR cervical spine 2-3V Current Patient Location: [facility] [employer] Other XR cervical spine 2-3V Accession/Order Number: [id number] [employer] Other XR cervical spine 2-3V Exam Date: 07/28/2023 11:15 Report Date: 07/28/2023 12:14 [employer] Other XR cervical spine 2-3V At the request of: [employer] Other XR cervical spine 2-3V SEMAJ BALL [employer] Other XR cervical spine 2-3V EXAMINATION: XR cervical spine 2-3V, XR lumbar spine 2-3V, XR thoracic spine [employer] Other XR cervical spine 2-3V 2V [employer] Other XR cervical spine 2-3V HISTORY: Scoliosis M41.20, Cervical Spondylosis M47.812 [employer] Other XR cervical spine 2-3V COMPARISON: No relevant comparison available. [employer] Other XR cervical spine 2-3V FINDINGS: [employer] Other XR cervical spine 2-3V BONES: Cervical spine demonstrates marked left convex curvature and mild [employer] Other XR cervical spine 2-3V reversal of normal lordotic curvature. Suspect degenerative changes versus [employer] Other XR cervical spine 2-3V osseous bridging of the facet joints at most levels. No appreciable fracture [employer] Other XR cervical spine 2-3V or [employer] Other XR cervical spine 2-3V spondylolisthesis [employer] Other XR cervical spine 2-3V Thoracic spine demonstrates moderate left convex curvature and exaggerated [employer] Other XR cervical spine 2-3V kyphosis. No appreciable fracture or spondylolisthesis. [employer] Other XR cervical spine 2-3V Lumbar spine demonstrates mild curvature at the thoracolumbar junction. [employer] Other XR cervical spine 2-3V Straightening of the normal lordotic curvature, and multilevel marked [employer] Other XR cervical spine 2-3V degenerative facet arthropathy. Bone encroachment on the L4-5 and L5-S1 neural [employer] Other XR cervical spine 2-3V foramen. [employer] Other XR cervical spine 2-3V DISC SPACES: Calcification of the interspinous ligaments throughout. Cervical [employer] Other XR cervical spine 2-3V spine multilevel mild disc space narrowing. Thoracic spine multilevel mild [employer] Other XR cervical spine 2-3V disc [employer] Other XR cervical spine 2-3V space narrowing. Lumbar spine and multilevel mild-moderate disc space [employer] Other XR cervical spine 2-3V narrowing. [employer] Other XR cervical spine 2-3V PARASPINOUS: No paraspinous abnormality is seen. [employer] Other XR cervical spine 2-3V Negative [employer] Other XR cervical spine 2-3V XR/XR cervical spine 2-3V [employer] Other XR cervical spine 2-3V IMPRESSION: [employer] Other XR cervical spine 2-3V 1. Limited examination due to patient needing to be imaged in the standing [employer] Other XR cervical spine 2-3V position. [employer] Other XR cervical spine 2-3V 2. Multilevel scoliotic curvature of the cervical and thoracic spine. [employer] Other XR cervical spine 2-3V 3. Thoracic kyphosis. [employer] Other XR cervical spine 2-3V 4. Findings favor diffuse ankylosing spondylitis throughout the cervical, [employer] Other XR cervical spine 2-3V thoracic, lumbar spine. [employer] Other XR cervical spine 2-3V 5. Multilevel mild degenerative disc disease. [employer] Other XR cervical spine 2-3V 6. Marked degenerative facet arthropathy of lumbar spine. [employer] Other XR cervical spine 2-3V Electronically authenticated by: DAMI GOMEZ Date: 07/28/2023 12:14 [employer] Other XR cervical spine 2-3V Dictated By: Dami Gomez M.D. [employer] Other XR cervical spine 2-3V Signed By: 07/28/23 1217 [employer] Other XR cervical spine 2-3V DD/ 1214 [employer] Other XR cervical spine 2-3V TD/TT: [employer]: [employer] Other XR lumbar spine 2-3Von 07-28 XR lumbar spine 2-3V Accession Number(s): [id number] [employer] Other XR lumbar spine 2-3V Accession/Order Number: [id number] [employer] Other XR lumbar spine 2-3V XR/XR lumbar spine 2-3V [employer] Other XR thoracic spine 2Von 07-28 XR thoracic spine 2V Accession Number(s): [id number] [employer] Other XR thoracic spine 2V Accession/Order Number: [id number] [employer] Other XR thoracic spine 2V XR/XR thoracic spine 2V [employer] Other LIPID PROFILE SEND OUTon Cholesterol [Mass/Vol] 259 mg/dL Critically high 100-199 [facility] Comment on above: Performed By: #### B MPLC, LIPIDLC #### [facility] [address] [place] [address] Dr. David Brown Cholesterol in HDL [Mass/Vol] 16 mg/dL Critically low >39 [facility] Comment on above: Performed By: #### B MPLC, LIPIDLC #### [facility] [address] [place] [address] [address] David Brown Comment: Normal [facility] Comment on above: Performed By: #### B MPLC, LIPIDLC #### [facility] [address] [place] [address] [address] David Brown LDL Chol. Calc. ([facility]) Comment Abnormal 0-99 [facility] Comment on above: Result Comment: Trig lyceride result indicated is too high for an accurate LDL cholesterol estimation. Performed By: #### B MPLC, LIPIDLC #### [facility] [address] [place] [address] [address] David Brown Triglyceride [Mass/Vol] 2070 mg/dL Invalid Interpretation Code 0-149 [facility] Comment on above: Result Comment: Resu lts confirmed on dilution. Performed By: #### B MPLC, LIPIDLC #### [facility] [address] [place] [address] Dr. David Brown VLDL Cholesterol, Calc Comment Abnormal 5-40 [facility] Comment on above: Result Comment: The calculation for the VLDL cholesterol is not valid when triglyceride level is >800 mg/dL. Performed By: #### B MPLC, LIPIDLC #### [facility] [address] [place] [address] Dr. David Brown PROF CHEM 8 (BAS METB) SEND OUTon 02-04-2023 Calcium [Mass/Vol] 10.0 mg/dL Normal 8.7-10.2 [facility] Comment on above: Performed By: #### B MPLC, LIPIDLC #### [facility] [address] [place] [address] Dr. David Brown Chloride [Moles/Vol] 91 mmol/L Critically low 96-106 [facility] Comment on above: Performed By: #### B MPLC, LIPIDLC #### [facility] [address] [place] [address] Dr. David Brown CO2 [Moles/Vol] 24 mmol/L Normal 20-29 [facility] Comment on above: Performed By: #### B MPLC, LIPIDLC #### [facility] [address] [place] [address] Dr. David Brown Creatinine [Mass/Vol] 1.00 mg/dL Normal 0.76-1.27 [facility] Comment on above: Performed By: #### B MPLC, LIPIDLC #### [facility] [address] [place] [address] Dr. David Brown GFR/1.73 sq M.predicted among non-blacks MDRD (S/P/Bld) [Vol rate/Area] 90 mL/min/{1.73_m2} Normal >59 [facility] Comment on above: Performed By: #### B MPLC, LIPIDLC #### [facility] [address] [place] [address] [address] David Brown Glucose [Mass/Vol] 205 mg/dL Critically high 70-99 [facility] Comment on above: Performed By: #### B MPLC, LIPIDLC #### [facility] [address] [place] [address] Dr. David Borwn Potassium [Moles/Vol] 4.7 mmol/L Normal 3.5-5.2 [facility] Comment on above: Performed By: #### B MPLC, LIPIDLC #### [facility] [address] [place] [address] Dr. David Brown Sodium [Moles/Vol] 132 mmol/L Critically low 134-144 [facility] Comment on above: Performed By: #### B MPLC, LIPIDLC #### [facility] [address] [place] [address] Dr. David Brown Urea nitrogen [Mass/Vol] 18 mg/dL Normal 6-24 [facility] Comment on above: Performed By: #### B MPLC, LIPIDLC #### [facility] Laboratory [address] [place] [address] Dr. David Brown Urea nitrogen/Creatinine [Mass ratio] 18 mg/mg Normal 9-20 [facility] Comment on above: Performed By: #### B MPLC, LIPIDLC #### [facility] [address] [place] [address] Dr. David Brown CBC AUTO DIFFon 02-03-2023 BASO # 0.1 103/ul Normal 0.0-0.1 [facility] Comment on above: Performed By: #### C BC #### [facility] [address] [place] [address] Dr. David Brown Basophils/100 WBC (Bld) 0.6 % Normal 0.2-2.0 [facility] Comment on above: Performed By: #### C BC #### [facility] [address] [place] [address] Dr. David Brown EO # 0.2 103/ul Normal 0.0-0.7 [facility] Comment on above: Performed By: #### C BC #### [facility] [address] [place] [address] Dr. David Brown Eosinophils/100 WBC (Bld) 2.2 % Normal 0.9-7.0 [facility] Comment on above: Performed By: #### C BC #### [facility] [address] [place] [address] Dr. David Brown Erythrocyte distribution width (RBC) [Ratio] 12.7 % Normal 11.0-15.0 [facility] Comment on above: Performed By: #### C BC #### [facility] [address] [place] [address] Dr. David Brown Hematocrit (Bld) [Volume fraction] 43.6 % Normal 42.0-54.0 [facility] Comment on above: Performed By: #### C BC #### [facility] [address] [place] [address] Dr. David Brown Hemoglobin (Bld) [Mass/Vol] 14.6 g/dL Normal 14.0-18.0 [facility] Comment on above: Performed By: #### C BC #### [facility] [address] [place] [address] Dr. David Brown IG # 0.03 10e3/ul Normal 0.00-0.03 [facility] Comment on above: Performed By: #### C BC #### [facility] [address] [place] [address] Dr. David Brown IG % 0.3 % Normal 0.0-0.5 [facility] Comment on above: Performed By: #### C BC #### [facility] [address] [place] [address] Dr. David Bronw LYMPH # 3.6 103/ul Normal 1.2-3.8 [facility] Comment on above: Performed By: #### C BC #### [facility] [address] [place] [address] Dr. David Brown Lymphocytes/100 WBC (Bld) 37.8 % Normal 20.5-60.0 [facility] Comment on above: Performed By: #### C BC #### [facility] [address] [place] [address] Dr. David Brown MANUAL DIFF REQ NO Normal [facility] Comment on above: Performed By: #### C BC #### [facility] [address] [place] [address] Dr. David Brown MCH (RBC) [Entitic mass] 28.3 pg Normal 25.9-34.0 [facility] Comment on above: Performed By: #### C BC #### [facility] [address] [place] [address] Dr. David Brown MCHC (RBC) [Mass/Vol] 33.5 g/dL Normal 29.9-35.2 [facility] Comment on above: Performed By: #### C BC #### [facility] [address] [place] [address] Dr. David Brown MCV (RBC) [Entitic vol] 84.7 fL Normal 80.0-94.0 [facility] Comment on above: Performed By: #### C BC #### [facility] [address] [place] [address] Dr. David Brown MONO # 0.9 103/ul Critically high 0.3-0.8 [facility] Comment on above: Performed By: #### C BC #### [facility] [address] [place] [address] Dr. David Brown Monocytes/100 WBC (Bld) 9.6 % Normal 1.7-12.0 [facility] Comment on above: Performed By: #### C BC #### [facility] [address] [place] [address] Dr. David Brown NEUT # 4.8 103/ul Normal 1.4-6.5 [facility] Comment on above: Performed By: #### C BC #### [facility] [address] [place] [address] Dr. David Brown Neutrophils/100 WBC (Bld) 49.5 % Normal 43.0-75.0 [facility] Comment on above: Performed By: #### C BC #### [facility] [address] [address] [address] David Brown Platelet mean volume (Bld) [Entitic vol] 12.0 fL Normal 9.5-13.5 [facility] Comment on above: Performed By: #### C BC #### [facility] [address] [address] [address] David Brown PLT 254 103/ul Normal 150-450 [facility] Comment on above: Performed By: #### C BC #### [facility] [address] [address] [address] David Brown RBC 5.15 106/ul Normal 4.70-6.10 [facility] Comment on above: Performed By: #### C BC #### [facility] [address] [place] [address] Dr. David Brown WBC 9.6 103/ul Normal 4.0-11.0 [facility] Comment on above: Performed By: #### C BC #### [facility] [address] [place] [address] Dr. David Brown GLYCOHEMOGLOBIN A1Con 2022 ADA RECOMMENDATION SEE BELOW Normal [facility] Comment on above: Result Comment: ADA RECOMMENDED LIMIT 4.0 - 6.0 ADA THERAPEUTIC TARGET < 7.0 ACTION SUGGESTED > 7.0 Performed By: #### A 1C #### [facility] [address] [place] [address] Dr. David Brown Glucose [Mass/Vol] 212 mg/dL Normal [facility] Comment on above: Performed By: #### A 1C #### [facility] [address] [place] [address] Dr. David Brown HbA1c (Bld) [Mass fraction] 9.0 % Critically high 4.5-6.2 [facility] Comment on above: Performed By: #### A 1C #### [facility] [address] [place] [address] Dr. David Brown MICROALBUMIN, RAND URon 03- mALB 5.5 mg/L Normal <=30.0 [facility] Comment on above: Performed By: #### M ALBR #### [facility] [address] [place], [place] [address] Dr. David Brown GLYCOHEMOGLOBIN A1Con 2021 ADA RECOMMENDATION SEE BELOW Normal [facility] Comment on above: Result Comment: ADA RECOMMENDED LIMIT 4.0 - 6.0 ADA THERAPEUTIC TARGET < 7.0 ACTION SUGGESTED > 7.0 Performed By: #### A 1C #### [facility] [address] [address] [address] David Brown Glucose [Mass/Vol] 194 mg/dL Normal [facility] Comment on above: Performed By: #### A 1C #### [facility] [address] [address] [address] David Brown HbA1c (Bld) [Mass fraction] 8.4 % Critically high 4.5-6.2 [facility] Comment on above: Performed By: #### A 1C #### [facility] [address] [address] [address] David Brown Vital Signs Date Time Vital Sign Value Performing Clinician Facility 10-19-2024 14:35-0500 Body height 165.1 cm Rodrick Dolce DPM FACFAS Work Phone: [facility] 10-19-2024 14:35-0500 Body mass index (BMI) [Ratio] 39.94 kg/m2 Rodrick Dolce DPM FACFAS Work Phone: [facility] 10-19-2024 14:35-0500 Body weight 108.86 kg Rodrick Dolce DPM FACFAS Work Phone: [facility] 10-19-2024 14:35-0500 Diastolic blood pressure 75 mm[Hg] Rodrick Dolce DPM FACFAS Work Phone: [facility] 10-19-2024 14:35-0500 Heart rate 72 /min Rodrick Dolce DPM FACFAS Work Phone: [facility] 10-19-2024 14:35-0500 Systolic blood pressure 130 mm[Hg] Rodrick Dolce DPM FACFAS Work Phone: [facility] 10-04-2024 08:46-0500 Body height 160 cm Orly Nima DO Work Phone: [facility] 10-04-2024 08:46-0500 Body mass index (BMI) [Ratio] 42.51 kg/m2 Orly Nima DO Work Phone: [facility] 10-04-2024 08:46-0500 Body weight 108.86 kg Orly Nima DO Work Phone: [facility] 10-04-2024 08:46-0500 Diastolic blood pressure 76 mm[Hg] Orly Nima DO Work Phone: [facility] 10-04-2024 08:46-0500 Heart rate 99 /min Orly Nima DO Work Phone: [facility] 10-04-2024 08:46-0500 SaO2% (BldA) [Mass fraction] 91 % Orly Nima DO Work Phone: [facility] 10-04-2024 08:46-0500 Systolic blood pressure 132 mm[Hg] Orly Nima DO Work Phone: [facility] 08-03-2024 14:01-0400 Body height 165.1 cm Rodrick Dolce DPM FACFAS Work Phone: [facility] 08-03-2024 14:01-0400 Body mass index (BMI) [Ratio] 43.43 kg/m2 Rodrick Dolce DPM FACFAS Work Phone: [facility] 08-03-2024 14:01-0400 Body weight 118.39 kg Rodrick Dolce DPM FACFAS Work Phone: [facility] 08-03-2024 14:01-0400 Diastolic blood pressure 80 mm[Hg] Rodrick Dolce DPM FACFAS Work Phone: [facility] 08-03-2024 14:01-0400 Heart rate 85 /min Rodrick Dolce DPM FACFAS Work Phone: [facility] 08-03-2024 14:01-0400 Systolic blood pressure 130 mm[Hg] Rodrick Thomas DPM FACFAS Work Phone: [facility] 07-28-2023 09:30-0400 Body height 160.02 cm Semaj Ball Other [facility] Other 07-28-2023 09:30-0400 Body mass index (BMI) [Ratio] 47.33 kg/m2 Semaj Ball Other [facility] Other 07-28-2023 09:30-0400 Body weight 121.2 kg Semaj Ball Other [facility] Other 07-28-2023 09:30-0400 Diastolic blood pressure 87 mm[Hg] Semaj Ball Other [facility] Other 07-28-2023 09:30-0400 Respiratory rate 12 /min Semaj Ball Other [facility] Other 07-28-2023 09:30-0400 Systolic blood pressure 132 mm[Hg] Semaj Ball Other [facility] Other 01-25-2023 12:30-0400 Body height 160.02 cm Semaj Ball Other [facility] Other 01-25-2023 12:30-0400 Body mass index (BMI) [Ratio] 47.75 kg/m2 Semaj Ball Other [facility] Other 01-25-2023 12:30-0400 Body weight 122.29 kg Semaj Ball Other [facility] Other 01-25-2023 12:30-0400 Diastolic blood pressure 82 mm[Hg] Semaj Ball Other [facility] Other 01-25-2023 12:30-0400 Respiratory rate 12 /min Semaj Avery Other [facility] Other 01-25-2023 12:30-0400 Systolic blood pressure 130 mm[Hg] Semaj Avery Other [facility] Other Encounters Encounter Date Encounter Type Care Provider Facility Start: 10-19-2024 End: 10-19-2024 Patient encounter procedure Rodrick R Dolce DPM FACFAS Work Phone: [facility] Comment on above: Onychomycosis (Prima ry Dx); Type II diabetes mellitus with neurological manifestations (CMS/HCC); Pain in right toe(s); Pain in left toe(s) Start: 10-19-2024 End: 10-19-2024 ambulatory RODRICK R DOLCE Not Available Start: 10-19-2024 End: 10-19-2024 Bamboo flowsheet Rodrick R Dolce DPM FACFAS Work Phone: [facility] Start: 10-19-2024 End: 10-19-2024 Bamboo flowsheet Rodrick R Dolce DPM FACFAS Work Phone: [facility] Start: 10-04-2024 End: 10-04-2024 Bamboo flowsheet Orly Nima DO Work Phone: [facility] [address] [facility] Start: 10-04-2024 End: 10-04-2024 Bamboo flowsheet Orly Nima DO Work Phone: [facility] Start: 10-04-2024 End: 10-04-2024 Office outpatient new 45 minutes Orly Nima DO Work Phone: [facility] Comment on above: LUÍS (obstructive sle ep apnea) (Primary Dx); Hypoxia; Hypersomnia; Snoring Start: 10-04-2024 End: 10-04-2024 ambulatory ORLY NIMA Not Available Start: 08-03-2024 End: 08-03-2024 Bamboo flowsheet Rodrick R Dolce DPM FACFAS Work Phone: [facility] Start: 08-03-2024 End: 08-03-2024 Bamboo flowsheet Rodrick R Dolce DPM FAC[facility]AS Work Phone: [facility] Start: 08-03-2024 End: 08-03-2024 Patient encounter procedure Rodrick R Dolce DPM FAC[facility]AS Work Phone: [facility] Comment on above: Onychomycosis (Prima ry Dx); Type II diabetes mellitus with neurological manifestations (CMS/HCC); Pain in right toe(s); Pain in left toe(s) Start: 08-03-2024 End: 08-03-2024 ambulatory RODRICK R DOLCE Not Available Start: 05-25-2024 End: 05-25-2024 ambulatory RODRICK R DOLCE Not Available Start: 03-02-2024 End: 03-02-2024 ambulatory RODRICK R DOLCE Not Available Start: 01-01-2024 Evaluation and manag ement of inpatient DELGADO GUIDO [facility] Start: 01-01-2024 End: 01-06-2024 Evaluation and management of inpatient SEMAJ AVERY [facility] Start: 11-18-2023 End: 11-18-2023 ambulatory RODRICK R DOLCE Not Available Start: 11-02-2023 End: 11-02-2023 ambulatory Semaj Avery Other [facility] Other Start: 11-02-2023 Telephone encounter Semaj Avery [facility] Start: 10-29-2023 End: 10-29-2023 ambulatory Semaj Avery Other [facility] Other Start: 10-29-2023 Telephone encounter Semaj Avery [facility] Start: 10-27-2023 End: 10-27-2023 ambulatory Semaj Avery Other [facility] Other Start: 10-27-2023 Telephone encounter Semaj Bennie [facility] Start: 10-05-2023 End: 10-05-2023 ambulatory Semaj Avery Other [facility] Other Start: 10-05-2023 Telephone encounter Semaj Avery [facility] Start: 08-09-2023 End: 08-09-2023 ambulatory Edidallas Henriquez Facility:[facility] Start: 07-28-2023 End: 07-28-2023 ambulatory Semaj Avery Other [facility] Other Start: 07-28-2023 Office outpatient vi sit 25 minutes Semaj Avery [facility] Start: 07-28-2023 Telephone encounter Semaj Avery [facility] Start: 02-04-2023 End: 02-04-2023 ambulatory Semaj Avery Other [facility] Other Start: 02-04-2023 Telephone encounter Semaj Avery [facility] Start: 02-03-2023 Telephone encounter Semaj MILES [facility] Start: 02-03-2023 End: 02-04-[address] SEMAJ AVERY [facility] Other Start: 01-25-2023 End: 01-25-2023 ambulatory Semaj Avery Other [facility] Other Start: 01-25-2023 Encounter for genera l adult medical examination without abnormal findings Semaj Avery [facility] Start: 01-25-2023 Initial preventive exam Semaj Trinidad l [facility] Start: 01-25-2023 Patient encounter procedure Semaj Avery [facility] Start: 08-07-2022 End: 08-08-[address] SEMAJ AVERY Facility:[facility]1 Procedures Date Procedure Procedure Detail Performing Clinician Start: 02-03-[address] ROOT IN [facility] Comment on above: Performed By: #### P [facility] #### [facility] [address] [place] [address] Dr. David Brown Plan of Treatment Date Care Activity Detail Author Start: 12-28-2024 End: 12-28-2024 Patient encounter procedure 12/28/2024 2:30 PM EST Office Visit [facility] [address] [place] [phone] Dolce, Rodrick R, DPM FACFAS [address] [place] [address] [facility] Start: 10-19-2024 End: 10-19-2024 Patient encounter procedure 10/19/2024 2:30 PM EST Office Visit [facility] [address] [place] [phone] Dolce, Rodrick R, DPM FACFAS [address] [place] [address] Arrived [facility] Comment on above: Arrived Start: 10-12-2024 End: 10-12-2024 Patient encounter procedure 10/12/2024 2:50 PM EST Office Visit [facility] [address] [place] [phone] Dolce, Rodrick R, DPM FACFAS [address] [place] [address] [facility] Start: 10-04-2024 End: 10-04-2024 Patient encounter procedure 10/04/2024 9:00 AM EST Office Visit [facility] [address] [facility] [address] [facility] [place] [phone] Orly Herring [address] [place] [address] Arrived [facility] Comment on above: Arrived Start: 08-03-2024 End: 08-03-2024 Patient encounter procedure 08/03/2024 2:00 PM EDT Office Visit [facility] [address] [place] [phone] Dolce, Rodrikc R, DPM FACFAS [address] [place] [address] Arrived [facility] Comment on above: Arrived Start: 07-09-2024 Influenza vaccination Influenz a Vaccine (#1) [facility] Start: 1970 Screening for malign ant neoplasm of colon [facility] Immunizations Immunization Date Immunization Notes Care Provider Fa cility 09-04-2022 influenza, injectabl e, quadrivalent, contains preservative Semaj Avery Other [facility] Other 09-04-2022 COVID-19 Pfizer (bivalent) Semaj Avery Other [facility] Other 09-04-2022 COVID-19 Pfizer (Pediatric) Semaj Avery Other [facility] Other 09-04-2022 influenza virus vaccine, split virus (incl. purified surface antigen) Semaj Avery Other [facility] Other 09-04-2022 influenza virus vaccine, unspecified formulation Rodrick Thomas DPM FACFAS Work Phone: [facility] 04-18-2022 zoster vaccine recombinant Semaj Avery Other [facility] Other 04-18-2022 zoster vaccine, live Benjami n Ball Other [facility] Other 02-13-2022 COVID-19 Vaccine Pfi zer - Documentation Purposes Only Semaj Avery Other [facility] Other 02-13-2022 Prevnar 20 Semaj Avery Other [facility] Other 02-13-2022 zoster vaccine recombinant Semaj Avery Other [facility] Other 02-13-2022 zoster vaccine, live Benjami n Ball Other [facility] Other 09-30-2021 COVID-19 Vaccine Pfi zer - Documentation Purposes Only Semaj Avery Other [facility] Other 02-11-2021 COVID-19 Vaccine Pfi zer - Documentation Purposes Only Semaj Avery Other [facility] Other 01-20-2021 COVID-19 Vaccine Pfi zer - Documentation Purposes Only Semaj Avery Other [facility] Other 07-22-2020 influenza virus vaccine, split virus (incl. purified surface antigen) Semaj Avery Other [facility] Other 09-13-2017 tetanus and diphther ia toxoids, adsorbed, preservative free, for adult use (5 Lf of tetanus toxoid and 2 Lf of diphtheria toxoid) Semaj Avery Other [facility] Other Payers Date Payer Category Payer Medicare AETNA MEDICARE A DVANTAGE AETNA MEDICARE REPLACEMENT [id number] 2024-Present [address] [place] [address] [id number] 2024 Medicare [id number] 2023 Self-pay 2022 Medicaid [id number] 1970 Unknown [id number] 1970 Unknown [id number] 1969 Unknown [id number] 1969 Unknown [id number] 1969 Unknown [id number] 1969 Unknown [id number] 1969 Unknown [id number] [id number] 1969 Unknown [id number] [id number] 1969 Unknown [id number] [id number] 1969 Unknown [id number] 1960 Medicaid [id number] 1960 Medicare [id number] Unknown [id number] Social History Date Type Detail Facility Start: 05-25-2024 End: 08-03-2024 Sex Assigned At [facility] Other Start: 04-08-2023 End: 10-04-2024 Tobacco smoking status [facility] Never smoked tobacco [facility] Start: 04-08-2023 Tobacco use and exposure Smokeless tobacco non-user [facility] Start: 05-25-2024 End: 10-04-2024 Alcoholic beverage intake Lifetime non-drinker (finding) [facility] Start: 05-25-2024 End: 08-03-2024 History of Social function [facility] Start: 04-05-2023 Alcohol Comment Hasn't drank a lcohol in the past 12 months [facility] Start: 1970 Sex assigned at Not on file [facility] Start: 10-04-2024 Tobacco use and exposure User of smokeless tobacco [facility] Clinical Notes 03-20-2023 to 10-19-2024 Rodrick R Martha, BEREKET [facility]AS - 10/19/2024 2:30 PM Misha Herring, DO - 10/04/2024 9:00 AM Eladia Thomas, BEREKET FAC[facility]AS - 08/03/2024 2:00 PM EDT Note Date & Type Note Facility 10-19-2024 History of Presen t illness Narrative Images from the original note were not included. patient: Vitaly Dobson : 1970 PCP: Semaj Avery MD SUBJECTIVE This is a 54 y.o. male diabetic patient presents today chief complaint of painful elongated nails digits 1 through 10 the cause marked limitation in ambulation due to pain and pressure from shoe gear. The patient states he has been attempting to control his blood glucose levels with regular visits to his primary care physician. Allergies: No Known Allergies Past Medical History: Past Medical History: Diagnosis Date Ankylosing spondylitis (CMS/HCC) Diabetes (CMS/HCC) Hypertension (CMS/HCC) Pulmonary embolism (CMS/HCC) Subdural hematoma (CMS/HCC) Medications: Current Outpatient Medications: apixaban (Eliquis) 5 MG tablet, Take 10 mg by mouth, Disp: , Rfl: atorvastatin (Lipitor) 10 MG tablet, Take 10 mg by mouth at bedtime, Disp: , Rfl: fenofibrate micronized (Lofibra) 200 MG capsule, TAKE 1 CAPSULE BY MOUTH EVERY DAY WITH FOOD, Disp: , Rfl: glimepiride (Amaryl) 4 MG tablet, TAKE 1 TABLET BY MOUTH EVERY DAY 30 MINUTES PRIOR TO BREAKFAST, Disp: , Rfl: ipratropium (Atrovent) 0.06 % nasal spray, , Disp: , Rfl: lisinopril 10 MG tablet, Take 10 mg by mouth in the morning., Disp: , Rfl: Melatonin 3 MG capsule, Take 3 mg by mouth at bedtime, Disp: , Rfl: metFORMIN (Glucophage) 1000 MG tablet, TAKE 1 TABLET BEFORE BREAKFAST AND EVENING MEAL (Patient not taking: Reported on 10/04/2024), Disp: , Rfl: nabumetone (Relafen) 750 MG tablet, , Disp: , Rfl: tiZANidine (Zanaflex) 6 MG capsule, TAKE 1 CAPSULE BY MOUTH EVERYDAY AT BEDTIME, Disp: , Rfl: traMADol (Ultram) 50 MG tablet, TAKE 1 TABLET BY MOUTH THREE TIMES A DAY NEEDED FOR SEVERE PAIN, Disp: , Rfl: Review of systems: Constitutional: Denies fever, chills, nausea, vomiting GI: Denies abdominal pain, cramping, loose stool, gastric ulcers Musculoskeletal: Denies low back pain, knee pain, systemic arthritis Neurologic: Denies burning, tingling, transient paralysis OBJECTIVE Physical Examination: DERM: Positive hair growth to b/l feet with good skin turgor noted. Negative openings in skin. No macerations noted interdigitally. Web spaces were clean and dry. No ulcerations were noted. Nails 1 through 10 were thickened elongated yellow and crumbly with subungual debris. They were painful to palpation [id number] on the right 50994 on the left. VASC: DP /PT were nonpalpable bilateral. Capillary refill time < 3 seconds Digits 1-5 bilateral NEURO: [place] 5.07 monofilament was diminished B/L. Vibratory sensation was diminished b/l. Mild peripheral neuropathy noted in a stocking-glove orientation Musculoskeletal: Muscle strength was +5 over 5 all intrinsic and extrinsic muscles tested. Radiographs: AP/MO/LAT: Diagnostic ultrasound: ASSESSMENT 1. Onychomycosis 2. Type II diabetes mellitus with neurological manifestations (CMS/HCC) 3. Pain in right toe(s) 4. Pain in left toe(s) PLAN The patient was educated on proper diabetic foot care. There educated on the etiology of onychomycosis. Also educated on performing regular inspections of the feet. We discussed routine visits to her primary care physician to monitor the glucose levels as well. Today the nails were debrided both in length and thickness 1 through 10. Patient was educated on the increased risk for foot complications due to neuropathy, poor circulation, and delayed wound healing. Proper foot care is essential to prevent ulcers, infections, and potential amputations. The following recommendation given to the patient guarding diabetic foot care: 1. Daily Foot Inspection Check for cuts, sores, blisters, redness, swelling, or signs of infection. Use a mirror or seek assistance if unable to see the bottom of the feet. 2. Hygiene Wash feet daily with warm (not hot) water and mild soap. Dry thoroughly, especially between toes, to prevent fungal infections. 3. Moisturizing Apply moisturizer to prevent dryness and cracking, avoiding areas between toes. 4. Nail Care Patients should have their nails trimmed only by a college service officer to reduce the risk of injury or complications. 5. Footwear Wear well-fitting, cushioned shoes that protect feet from injury. Avoid walking barefoot, even indoors. 6. Blood Sugar Control Maintain optimal blood sugar levels to promote circulation and healing. 7. Regular Monitoring by a Healthcare Provider Schedule regular foot exams by a provider to detect early signs of complications. Report any new foot issues immediately for timely intervention. BEREKET Medina documented in this encounter [facility] 10-04-2024 History of Presen t illness Narrative Images from the original note were not included. Chief Complaint Patient presents with Sleep Apnea Subjective Vitaly Dobson, 53 y.o., male being seen for Sleep Consultation at the request of Dr. Avery. HPI Sleep ND He originally snored and was tired but was not diagnosed untile after he got sick last December. The patient was in the hospital for pulmonary embolism and he was put on the cpap machine while inpatient. He states that he was never shown how to use the machine and needs direction. He is on 1/2 L continuous O2. The patient states that he hit his head on the cabinet and had some scabs on his head so he was not wearing his machine for a while. He sleeps in a recliner due to his neck, back, and shoulder pain. He goes to bed at 11pm. He states that sometimes he doses off earlier and will wake up around 3am. He is not able to go back to sleep. If he goes to bed at 11pm he will get up at 6am the next morning. He will sleep through the night if he goes to be at 11pm. On the nights that he uses his machine he does not nap the next day. Patient Symptoms Snores: YES Wakes gasping for breath: YES Dozes off if inactive: YES Dozes off with activity: NO Wakes a lot through the night: NO Witnessed episodes of apnea: UNSURE Bedtime: 11 PM Is it hard or easy to fall asleep: DEPENDS Morning wake time: 6 AM Do you feel rested: NO Takes naps: YES Feels better after napping: YES Sleepwalk: Sleeptalk: Vivid Dreams: Acts out dreams: Sleep related hallucinations: Sleep paralysis: Cataplexy: Restless Leg: Kicking/Jerking at night: TV on while sleeping: Smoke before bed: Caffeine within 3 hours before bed: CV exercise: Past Medical History: Diagnosis Date Ankylosing spondylitis (CMS/HCC) Diabetes (CMS/HCC) Hypertension (CMS/HCC) Pulmonary embolism (CMS/HCC) Subdural hematoma (CMS/HCC) Past Surgical History: Procedure Laterality Date BRAIN SURGERY Family History Problem Relation Name Age of Onset Dementia Mother Lung cancer Mother Heart attack Father Social History Tobacco Use Smoking status: Never Smokeless tobacco: Current Substance Use Topics Alcohol use: Never Comment: Hasn't drank alcohol in the past 12 months Allergies: Patient has no known allergies. General: No fever or chills HEENT: No nasal congestion or runny nose Pulmonary: No shortness of breath or cough Cardiovascular: No chest pain or palpitations GI: No nausea or vomiting : No dysuria or hematuria Musculoskeletal: No new aches or pains or muscle weakness Infectious: no recurrent fevers or infections Dermatologic: No rashes or skin lesions Neurologic: No new headaches or dizziness Vitals: 10/04/24 0846 BP: 132/76 Pulse: 99 SpO2: 91% Body mass index is 42.51 kg/m . weight: 240 lb Neurologic exam: General: Obesity, cooperative, pleasant Mental status: Awake, alert to person, place and time. Recent and remote memory are intact. Attention and concentration are normal. Fund of knowledge is appropriate for level of education. HEENT: NC/AT Cranial nerves: CN II: Visual gunderson full to confrontation. No loss of vision CN III, IV, : pupils equal round and reactive to light. Extraocular movements intact. No ptosis present. CN V: Facial sensation is normal. CN VII: Full and symmetric facial movement. CN VIII: Hearing is normal CN IX and X: Palate elevates symmetrically. CN XI: Shoulder shrug is normal bilaterally. CN XII: Tongue is midline without atrophy or fasciculation. Speech: Clear and fluent no aphasia or dysarthria Pronator drift: Negative bilateral upper extremity Coordination: Intact, no signs of dysmetria Good finger to nose and rapid alternating movements Sensory: Sensation is intact to light, temperature and vibratory touch throughout four extremities. Motor: LUE 5/5 RUE 5/5 LLE 5/5 RLE 5/5 Tone: Physiologic, no tremor, bradykinesia or rigidity DTR: Bilateral Biceps 2/4 Bilateral BR 2/4 Bilateral Patellar 1/4 No spasticity Gait: Hunched posture, Normal to casual gait Romberg's Negative Review and summary of old records: Assessment/Plan Diagnoses and all orders for this visit: LUÍS (obstructive sleep apnea) Hypoxia Hypersomnia Snoring 53-year-old male who was in the hospital for PE and there was found to have sleep apnea and was eventually studied in the clinic. Patient does admit to significant daytime hypersomnolence and snoring that he has had for many years. Patient's PSG showed a apnea-hypopnea index of 23.7 per the 4 percent guidelines with an oxygen desaturation down to 72 percent. He had 53 limb movements 195 arousals and 242 snoring occurrences. Patient was brought back and titrated on BiPAP he still had some residual events at the highest pressure therefore it was decided to bump him up 1 more notch and he is at 17/13 cm of water with 2 lpm of oxygen bled into the system which did control his hypoxia. This is working well for him when he wears his machine. He is not yet compliant with his machine. States sometimes he falls asleep before he can get it on he also states that he bumped his head and had some open sores on the top of his head and it was hard to wear the machine. Finally he also says that he was never really taught how to put the mask on or that he does not remember well as he was ill around that time. Was counseled he can call the respiratory therapist at his DME or stop into the sleep clinic and get a refresher on how to get the mask on more appropriately. At this time he is only using the machine 44 percent of the time with 34 percent of the time greater than 4 hours and an average nightly usage of 5 hours and 35 minutes. It does work when he is wearing is AHI is down to 1.6. He was counseled on the need to be compliant with the machine and get this machine on every night. We did discuss ways he can do that. He does sleep in the chair and refuses to sleep in the bed as with his orthopedic issues he can not get comfortable enough to sleep. His Blackwell Sleepiness scale is a 7. He does have underlying obesity and needs to be more aggressive with diet exercise weight loss. Plan PSG was reviewed with him BiPAP titration was reviewed with him Blackwell Sleepiness scale is 7 Compliance data was reviewed and he is not compliant. He was counseled on need to be compliant and ways to do that. The patient was counseled on the need for aggressive diet, exercise, and weight loss. The patient was counseled on proper sleep hygiene and adequate hours of sleep. The patient was counseled on the risks of stroke, NE, and sudden with LUÍS, along with the need for compliance with the CPAP/BiPAP treatment. The diagnosis was all discussed with the patient. All questions were answered and they agreed with the treatment plan. Patient will call if there are any new issues or questions. Pt has been fully educated on their diagnosis, treatment options, follow up plan, and return instructions Return to clinic: 2 months documented in this encounter [facility] 08-03-2024 History of Presen t illness Narrative patient: Vitaly Dobson : 1970 PCP: Semaj Avery MD SUBJECTIVE This is a 53 y.o. male diabetic patient presents today chief complaint of painful elongated nails digits 1 through 10 the cause marked limitation in ambulation due to pain and pressure from shoe gear. The patient states he has been attempting to control his blood glucose levels with regular visits to his primary care physician. Allergies: No Known Allergies Past Medical History: Past Medical History: Diagnosis Date Diabetes ([facility]) Medications: Current Outpatient Medications: apixaban (Eliquis) 5 MG tablet, Take 10 mg by mouth, Disp: , Rfl: atorvastatin (Lipitor) 10 MG tablet, Take 10 mg by mouth at bedtime, Disp: , Rfl: fenofibrate micronized (Lofibra) 200 MG capsule, TAKE 1 CAPSULE BY MOUTH EVERY DAY WITH FOOD, Disp: , Rfl: glimepiride (Amaryl) 4 MG tablet, TAKE 1 TABLET BY MOUTH EVERY DAY 30 MINUTES PRIOR TO BREAKFAST, Disp: , Rfl: ipratropium (Atrovent) 0.06 % nasal spray, , Disp: , Rfl: lisinopril 10 MG tablet, Take 10 mg by mouth in the morning., Disp: , Rfl: metFORMIN (Glucophage) 1000 MG tablet, TAKE 1 TABLET BEFORE BREAKFAST AND EVENING MEAL, Disp: , Rfl: nabumetone (Relafen) 750 MG tablet, , Disp: , Rfl: tiZANidine (Zanaflex) 6 MG capsule, TAKE 1 CAPSULE BY MOUTH EVERYDAY AT BEDTIME, Disp: , Rfl: traMADol (Ultram) 50 MG tablet, TAKE 1 TABLET BY MOUTH THREE TIMES A DAY NEEDED FOR SEVERE PAIN, Disp: , Rfl: Review of systems: Constitutional: Denies fever, chills, nausea, vomiting GI: Denies abdominal pain, cramping, loose stool, gastric ulcers Musculoskeletal: Denies low back pain, knee pain, systemic arthritis Neurologic: Denies burning, tingling, transient paralysis OBJECTIVE Physical Examination: DERM: Positive hair growth to b/l feet with good skin turgor noted. Negative openings in skin. No macerations noted interdigitally. Web spaces were clean and dry. No ulcerations were noted. Nails 1 through 10 were thickened elongated yellow and crumbly with subungual debris. They were painful to palpation 84199 on the right 05004 on the left. VASC: DP /PT were nonpalpable bilateral. Capillary refill time < 3 seconds Digits 1-5 bilateral NEURO: [place] 5.07 monofilament was diminished B/L. Vibratory sensation was diminished b/l. Mild peripheral neuropathy noted in a stocking-glove orientation Musculoskeletal: Muscle strength was +5 over 5 all intrinsic and extrinsic muscles tested. Radiographs: AP/MO/LAT: Diagnostic ultrasound: ASSESSMENT 1. Onychomycosis 2. Type II diabetes mellitus with neurological manifestations (CMS/HCC) 3. Pain in right toe(s) 4. Pain in left toe(s) PLAN The patient was educated on proper diabetic foot care. There educated on the etiology of onychomycosis. Also educated on performing regular inspections of the feet. We discussed routine visits to her primary care physician to monitor the glucose levels as well. Today the nails were debrided both in length and thickness 1 through 10. Rodrick Thomas DPM FACFAS documented in this encounter [facility] 11-02-2023 Evaluation note Encounter Date Diagnosis Assessment Notes Oct, Ankylosing spondylitis of thoracolumbar region (ICD-10 - M45.5) [facility] Other 12-22-2023 Evaluation note* Encounter Date Diagnosis Assessment Notes Treatment Notes Treatment Clinical Notes Oct, Type 2 diabetes mellitus with hyperglycemia, without long-term current use of insulin (ICD-10 - E11.65) [facility] Other 11-28-2023 Evaluation note* Encounter Date Diagnosis Assessment Notes Treatment Notes Treatment Clinical Notes Sep, Type 2 diabetes mellitus with hyperglycemia, without long-term current use of insulin (ICD-10 - E11.65) [facility] Other 09-20-2023 Evaluation note* Encounter Date Diagnosis [...] lidocaine patches and muscle relaxants at HS [facility] Other 09-20-2023 NoteProcedure(s): XR cervical spine 2-3V [facility] Other 09-20-2023 NoteProcedure: XR cervical spine 2-3[facility] Other 09-20-2023 NoteProcedure(s): XR thoracic spine 2[facility] Other 09-20-2023 NoteProcedure: XR thoracic spine 2VF[facility] Other 09-20-2023 NoteProcedure(s): XR lumbar spine 2-3VF[facility] Other 09-20-2023 NoteProcedure: XR lumbar spine 2-3VF[facility] Other 03-30-2023 Evaluation note* Encounter Date Diagnosis Assessment Notes Treatment Notes Treatment Clinical Notes Jan, Mixed hyperlipidemia (ICD-10 - E78.2) [facility] Other 03-29-2023 Evaluation note* Encounter Date Diagnosis Assessment Notes Treatment Notes Treatment Clinical Notes Jan, Type 2 diabetes mellitus with hyperglycemia, without long-term current use of insulin (ICD-10 - E11.65) [facility] Other 03-20-2023 Evaluation note* Encounter Date Diagnosis [...] reviewed and amended by provider signed below. [facility] Other Evaluation noteNo InformationNort [facility] Other [facility]* Diagnosis LUÍS (obstructive sleep apnea)- Primary Obstructive sleep apnea (adult) (pediatric) Hypoxia Hypoxemia Hypersomnia Hypersomnia, unspecified Snoring Other dyspnea and respiratory abnormality documented in this encounter [facility] HealthcareEvaluation note* Diagnosis Onychomycosis- Primary Dermatophytosis of nail Type II diabetes mellitus with neurological manifestations (CMS/HCC) Type II or unspecified type diabetes mellitus with neurological manifestations, not stated as uncontrolled Pain in right toe(s) Pain in left toe(s) documented in this encounter [facility] HealthcareEvaluation note* Diagnosis Onychomycosis- Primary Dermatophytosis of nail Type II diabetes mellitus with neurological manifestations (CMS/HCC) Type II or unspecified type diabetes mellitus with neurological manifestations, not stated as uncontrolled Pain in right toe(s) Pain in left toe(s) documented in this encounter [facility] HealthcareHistory general Narrative - Reported* Type Description Date [...] HEM ATOMA Hospitalization History SEE SURGICAL HX [facility] Other Reason for referral (narrative)* Reason Referral for ankylos ing spondylitis Diagnosis 1 Ankylosing spondylit is of thoracolumbar region (M45.5) Diagnosis 2 Scoliosis (and kypho scoliosis), idiopathic (M41.20) Diagnosis 3 Cervical spondylosis (M47.812) Referral Organization [facility] T[facility] simental Referring Provider First Name Semaj Referring Provider Last Name Bennie Referring Provider Specialty Internal Ma dicine Referred Organization Unknown Facility Referred Provider [...] medical treatment. Clinical Notes Include XR reports [facility] Other Summary Purpose Family History No Family History Records FoundNo Family History Records FoundNo Family History Records FoundNo Family History Records Found Advance Directives No Advanced Directives Records FoundNo Advanced Directives Records FoundNo Advanced Directives Records FoundNo Advanced Directives Records Found Additional Source Comments REASON FOR VISIT (unrecogniz ed section and content) Reason Comments Sleep Apnea Reason Comments Toenail Care Non DM nail care Reason Comments DM Foot Care Dm nail care (unrecognized sect ion and content) No Status Records FoundNo Status Records FoundNo Status Records FoundNo Status Records Found INFORMATION SOURCE (unrecogn ized section and content) DATE CREATED AUTHOR 02/14/2023 [facility] DATE CREATED AUTHOR AUTHOR'S ORGANIZ ATION 08/18/2023 [facility] DATE CREATED AUTHOR AUTHOR'S ORGANIZ ATION 01/13/2024 [facility] DATE CREATED AUTHOR AUTHOR'S ORGANIZ ATION 10/22/2024 [facility] Care Teams (unrecognized sec tion and content) Account Executive Key Accounts Relationship Specialty Start Date End Date Semaj Avery MD [address] [place] [address] PCP - General Internal Medicine 04/08/23 Account Executive Key Accounts Relationship Specialty Start Date End Date Semaj Avery MD [address] [place] [address] PCP - General Internal Medicine 04/08/23 Account Executive Key Accounts Relationship Specialty Start Date End Date Semaj Avery MD [address] [place] [address] PCP - General Internal Medicine 04/08/23 Account Executive Key Accounts Relationship Specialty Start Date End Date Semaj Avery MD [address] [place] [address] PCP - General Internal Medicine 04/08/23 FOR RECORDS PERTAINING TO PATIENTS WHO ARE [...] BE BASED ON THE PRIMARY CLINICAL RECORDS. [facility] [employer] [facility]. provides no warranty or guarantee of the accuracy or completeness of information in this document.
[2025-01-04 10:39] LABS: Estimated Average Glucose 229 mg/dL; Glycohemoglobin A1C 9.6 % (4.5-6.2)
== END 2025-01-04 10:07 | disposition home or self-care (01) ==
LOC: LAB 10:08
PROVIDERS: PCP Internal Medicine; Visit Provider Internal Medicine
DX: E11.65 Type 2 diabetes mellitus with hyperglycemia (principal)
CPT/HCPCS: 36415; 83036

== ENCOUNTER 2025-05-15 12:41 | Outpatient (OUT) | payer MEDICARE, MEDICAID, SELFPAY ==
--- OUTSIDE RECORDS SUMMARY | 2025-04-05 12:42 | XMS_ITS ---
Author Name Auto Generated Organization [facility] Care Team Providers Care Life Sciences Director Name Role Phone RODRICK THOMAS R Attending Unavailable DOLNERY RODRICK R Attending Unavailable DOLNERY RODRICK R Attending Unavailable DOLNERY, RODRICK R Attending Unavailable ORLY HERRING Attending Unavailable DOLNERY, RODRICK R Attending Unavailable PROBLEMS No Problem Records Found PROCEDURES No Procedure Records Found RESULTS No Result Records Found ALLERGIES No Allergies Records Found ENCOUNTERS ADMIT/DISCHARGE ACCOUNT NUMBER ADMITTING ENCOUNTER CLASS LOCATION SOURCE 04/05/2025/ 5 [id number] Ambulatory Building:NOM S POD [facility] 01/11/2025/ 5 [id number] Ambulatory Building:NOM S POD [facility] 10/19/2024/ 4 [id number] Ambulatory Building:NOM S POD [facility] 10/04/2024/ 4 [id number] Ambulatory Building:BSR NEURO [facility] 08/03/2024/ 4 [id number] Ambulatory Building:NOM S POD [facility] 05/25/2024/ 4 [id number] Ambulatory Building:NOM S POD [facility] PAYERS ENCOUNTER GUARANTOR PAYER SUBSCRIBER SOURCE 04/05/2025 ERIC Prather POCOCKDOB: [place] [address]Oze: () [place]: [id number] Date:2022-11-08 ERIC Prather POCOCKDOB: [id number] [place] [address] [facility] 04/05/2025 Secondary Insurance:AETNA MEDICARE ADVANTAGEPolicy Number: [id number] Date:2024-05-08 ERIC D POCOCKDOB: [id number] [place] [address] [facility] 01/11/2025 ERIC D [place]OCOCKDOB: [place] [address]Ydo: (HP) [place]: [id number] Date:2022-11-08 ERIC D POCOCKDOB: [id number] [place] [address] [facility] 01/11/2025 Secondary Insurance:AETNA MEDICARE ADVANTAGEPolicy Number: [id number] Date:2024-05-08 ERIC D POCOCKDOB: [id number] [place], [facility] [facility] 10/19/2024 ERIC D [place]OCOCKDOB: [place] [address]Kzn: (HP) [place]: [id number] Date:2022-11-08 ERIC D POCOCKDOB: [id number] [place] [place], [facility] [facility] 10/19/2024 Secondary Insurance:AETNA MEDICARE ADVANTAGEPolicy Number: [id number] Date:2024-05-08 ERIC D POCOCKDOB: [id number] [place] [address] [facility] 10/04/2024 ERIC D POCOCKDOB: [place] [address]Pov: (HP) [place]: [id number] Date:2022-11-08 ERIC D POCOCKDOB: [id number] [place] [address] [facility] 10/04/2024 Secondary Insurance:AETNA MEDICARE ADVANTAGEPolicy Number: [id number] Date:2024-05-08 ERIC D POCOCKDOB: [id number] [place] [address] [facility] 08/03/2024 ERIC D [place]OCOCKDOB: [place] [address]Wiq: (HP) [place]: [id number] Date:2022-11-08 ERIC D POCOCKDOB: [id number] [place] [address] [facility] 08/03/2024 Secondary Insurance:AETNA MEDICARE ADVANTAGEPolicy Number: [id number] Date:2024-05-08 ERIC D POCOCKDOB: [id number] [place] [address] [facility] 05/25/2024 ERIC D POCOCKDOB: [place] [address]Nil: () [place]: [id number] Date:2022-11-08 ERIC D POCOCKDOB: [id number] [place] [address] [facility] 05/25/2024 Secondary Insurance:AETNA MEDICARE ADVANTAGEPolicy Number: [id number] Date:2024-05-08 ERIC D POCOCKDOB: [id number] [place] [address] [facility]
--- NOTE | 2025-05-15 12:45 | CT_ITS ---
The [address] [address] Patient Name: ERIC GUILLORY MRN: [id number] date: 1970 Sex: M Assigned Patient Location: CT Current Patient Location: CT Accession/Order Number: [id number] Exam Date: 05/15/2025 15:40 Report Date: 05/15/2025 15:46 At the request of: GIULIA COREY DO Procedure: CT angio chest CTA Chest with PE protocol TECHNIQUE: Axial imaging with 2-D and 3-D reconstruction. 100cc of Omnipaque [address] exam was performed using one or more the following dose reduction techniques: Automated exposure control, adjustment of the MA and/or Kv according to patient size, or use of the iterative reconstruction technique. History: History of pulmonary embolus. Shortness of breath. COMPARISON: 12/31/2023 THYROID: Unremarkable TRACHEA AND BRONCHI: Patent ESOPHAGUS: Unremarkable. HEART: Within normal limits PERICARDIAL EFFUSION: None CORONARY ARTERY CALCIFICATION: Present MEDIASTINUM: No adenopathy. No pneumoperitoneum. No mediastinal hematoma. PULMONARY EVELYN: No hilar mass or adenopathy is seen. THORACIC AORTA Unremarkable PULMONARY EMBOLUS: None similar prominence of the pulmonary trunk consistent patient's history of pulmonary arterial hypertension. LUNG NODULE None LUNGS: Mild atelectasis PLEURAL EFFUSION: None PNEUMOTHORAX: No pneumothorax seen. CHEST WALL: No abnormality AXILLA: Unremarkable BONY STRUCTURES thoracic hyperostosis UPPER ABDOMEN: Nephrolithiasis. CT/CT angio chest IMPRESSION: No acute pulmonary embolus. No thoracic aortic aneurysm or dissection. Findings consistent with pulmonary arterial hypertension. Impression dictated by: Sheldon Comer M.D. 05/15/2025 3:46 PM Dictation Location: [place] [address] Electronically authenticated by: [id number] Y Date: 05/15/2025 15:46
--- NOTE | 2025-05-15 14:00 | CA_ITS ---
Patient Name: ERIC GUILLORY MR#: [id number] : 1970 Exam Date: 05/15/2025 Ordering Doctor: DR GIULIA COREY D.O. ECHOCARDIOGRAM REPORT PROCEDURE: CA ECHO DOPPLER COMPLETE INDICATIONS: Pulmonary hypertension, h/o pulmonary emboli COMPARISON: None. DESCRIPTION: COMPLETE ECHOCARDIOGRAM Real-time transthoracic echocardiography with 2D, M-mode, spectral and color flow Doppler performed. QUALITY: Technically difficult due to patient's condition. LEFT VENTRICLE: Normal chamber size. Mild concentric left ventricular hypertrophy. The septum is abnormal and motion consistent with right ventricular pressure and/or volume overload. Normal systolic function. LV EF: Normal left ventricular ejection fraction, (65-70%). DIASTOLIC: ATRIAL SEPTUM: LEFT ATRIUM: Normal chamber size. RIGHT ATRIUM: Severe dilatation. RIGHT VENTRICLE: Severe dilatation. Mildly reduced systolic function. TRICUSPID VALVE: Normal mobility and thickness. No stenosis with trivial regurgitation. MITRAL VALVE: Normal mobility and thickness. Mild mitral annular calcification. AORTIC VALVE: Normal trileaflet appearance. No visible sclerosis. Normal leaflet mobility. AORTIC ROOT: Mildly dilated, measuring 4.2 cm. Ascending aorta is normal in size, measuring 3.4 cm. PULMONIC VALVE: Normal thickness and mobility. No stenosis. No regurgitation. PERICARDIUM: No evidence of pericardial effusion. IVC: Not well visualized. PLEURA: CONCLUSION: 1. Mild concentric left ventricular hypertrophy with normal systolic function. LVEF is estimated at 65 to 70%. 2. Severely dilated right ventricle with mildly reduced systolic function. 3. Severe right atrial dilatation. 4. No significant valvular dysfunction. 5. Unable to assess right-sided pressures due to lack of measurable tricuspid regurgitation. 6. Mildly dilated aortic root measuring 4.2 cm. 7. Technically difficult study with poor sound transmission. Adult Echocardiography Procedure Report Left Ventricle LVEDD (3.7 - 5.6 cm): 4.00 cm LVESD (2.2 - 4.0 cm): 3.17 cm LVIVS thickness (0.6 - 1.2 cm): 1.31 cm LVPW thickness (0.5 - 1.0 cm): 1.33 cm LVOT Diameter 3.06 cm Left Atrium Left Atrium Systolic Dimension: 4.00 cm Mitral Valve MV E to A Ratio: 0.99 Mitral Valve A-Wave Peak Velocity: 0.23 m/s Mitral Valve E-Wave Peak Velocity: 0.23 m/s Right Ventricle Aorta AO Root Diam: 4.24 cm Ascending Ao Diam: 3.45 cm Aortic Valve Tricuspid Valve Pulmonic Valve Peak Gradient: 2.46 mm[Hg], 2.67 mm[Hg] Right Atrium Right Atrium Systolic Pressure: 101.24 ml, 101.24 ml Dictated by: Francisco Ceja M.D. on 05/15/2025 at 17:27 Approved by: Francisco Ceja M.D. on 05/15/2025 at 17:33
== END 2025-05-15 12:42 | disposition home or self-care (01) ==
LOC: CT 12:41
PROVIDERS: PCP Internal Medicine; Visit Provider Internal Medicine
DX: R09.02 Hypoxemia (principal); Z86.711 Personal history of pulmonary embolism; I27.20 Pulmonary hypertension, unspecified
CPT/HCPCS: 71275; 93306; Q9967

== ENCOUNTER 2025-06-27 12:51 | Outpatient (OUT) | payer MEDICARE, OTHER, SELFPAY ==
--- OUTSIDE RECORDS SUMMARY | 2025-06-27 13:00 | XMS_ITS | CCD ---
Author Organization [facility] Care Team Providers Care Ged Teacher Name Role Phone Semaj Avery Unavailable BENNIE, [...] Primary Care Unavailable TETE GUIDO Attending Unavailable ARLINE, JANNET Admitting Unavailable GUIDODELGADO Consulting Unavailabl e ARLINE, JANNET Consulting Unavailable NURA, MOHAMMED S Consulting Unavailable GUIDO, DELGADO ROBERTSEM Attending Unavailabl e DELGADO GUIDOEM Referring UnavailSEMAJ Richards Primary Care Unavailable Semaj Avery MD Primary Care Provider Semaj Avery DO Primary Care Provider DOLNERY, RODRICK R Attending Unavailable DOLCE, RODRICK R Attending Unavailable DOLCE, RODRICK R Attending Unavailable DOLCE, RODRICK R Attending Unavailable ORLY HERRING Attending Unavailable DOLCE, RODRICK R Attending Unavailable Medications Current Medications Medication Drug Class(es) Dates Sig (Normalized) Sig (Original) apixaban 5 mg oral tablet (16 sources) Factor Xa Inhibitor Start: 09-12-2024 End: 03-03-2025 take 1 tablet by mouth twice daily Apixaban (Eliquis) 5 mg tablet Active 0 .ROUTE .COMPLEX 60 March 03, 2025 3:32pm TAKE 1 TABLET BY MOUTH TWICE A DAY Start: 02-25-2024 End: 09-12-2024 take 1 tablet by mouth twice daily Apixaban (Eliquis) 5 mg tablet Discontinued 5 MG PO Twice daily 60 March 23, 2024 9:58am September 12, 2024 10:51pm Start: 01-06-2024 apixaban (Eliq uis) 5 MG tablet Take 10 mg by mouth 01/06/2024 Active atorvastatin 10 mg oral tablet (14 sources) HMG-CoA Reductase Inhibitor Start: 07-11-2024 End: 07-13-2024 take 1 tablet by mouth at bedtime atorvastatin (Lipitor) 10 MG tablet Take 10 mg by mouth at bedtime 07/14/2024 Active fenofibrate 200 mg oral capsule (20 sources) Peroxisome Proliferator Receptor alpha Agonist Start: 04-16-2024 End: 03-16-2025 take 1 capsule by mouth once daily Fenofibrate Micronized 200 mg capsule Active 0 .ROUTE .COMPLEX March 16, 2025 7:43am TAKE 1 CAPSULE BY MOUTH EVERY DAY Start: 02-04-2023 End: 04-16-2024 take 1 capsule by mouth once daily Fenofibrate Micronized 200 mg capsule Discontinued 200 MG PO Daily March 23, 2024 10:00am April 16, 2024 5:54pm ipratropium bromide 0.042 mg/actuat metered dose nasal spray (20 sources) Anticholinergic Start: 07-21-2024 Ipratropium Br omide 42 mcg (0.06 %) spray,non-aerosol Active 2 SPRAY INTRANASAL daily 45 July 21, 2024 12:50pm Start: 02-25-2024 End: 07-21-2024 take 1 mL by inhalation every six hours as needed Ipratropium [place] 0.02 % solution Discontinued 2.5 ML INHALATION Every 6 hours as needed February 25, 2024 12:00am July 21, 2024 12:50pm Start: 08-11-2023 ipratropium (A trovent) 0.06 % nasal spray 08/11/2023 Active Start: 03-31-2022 End: 02-25-2024 Ipratropium [place] 42 mcg ( 0.06 %) spray,non-aerosol Discontinued 42 MCG INTRANASAL Daily March 31, 2022 12:00am February 25, 2024 2:05pm Ipratropium Brom shantel 0.06 % USE 2 SPRAYS IN EACH NOSTRIL 2-3 TIMES A DAY NEEDED for 90 Active Ipratropium Brom shantel 0.06 % USE 2 SPRAYS IN EACH NOSTRIL 2-3 TIMES A DAY NEEDED for 90 Active take 2 spray(s) nasa l route three times daily as needed Ipratropium [place] 0.06 % 2 sprays in each nostril Nasally Three times a day as needed Active lisinopril 20 mg oral tablet (20 sources) Angiotensin Converting Enzyme Inhibitor Start: 07-21-2024 take 1 tablet by mouth once daily Lisinopril 20 mg tablet Active 0 .ROUTE .COMPLEX July 21, 2024 12:49pm TAKE 1 TABLET BY MOUTH EVERY DAY Start: 03-23-2024 End: 07-21-2024 take 1 tablet by mouth once daily Lisinopril 20 mg tablet Discontinued 20 MG PO Daily March 23, 2024 10:01am July 21, 2024 12:50pm Start: 03-31-2022 End: 02-25-2024 take 1 tablet by mouth in the morning lisinopril 10 MG tablet Take 10 mg by mouth in the morning. 03/04/2023 Active Lisinopril 20 MG TAKE 1 TABLET BY MOUTH EVERY DAY Orally Once a day for 30 days Active melatonin 3 mg oral tablet (15 sources) Start: 04-14-2024 End: 12-10-2024 take 1 tablet by mouth once daily at bedtime Melatonin 3 mg tablet Active 0 .ROUTE .COMPLEX December 10, 2024 10:11am TAKE 1 TABLET BY MOUTH EVERYDAY AT BEDTIME Start: 03-23-2024 End: 03-23-2024 take 2 tablets by mouth once daily at bedtime as needed Melatonin 3 mg tablet Discontinued 6 MG PO Daily at bedtime as needed March 23, 2024 9:45am March 23, 2024 10:03am Start: 02-25-2024 End: 04-14-2024 take 1 tablet by mouth once daily at bedtime Melatonin 3 mg tablet Discontinued 3 MG PO Daily at bedtime March 23, 2024 10:03am April 14, 2024 4:43pm take 1 capsule by mo [facility] at bedtime Melatonin 3 MG capsule Take 3 mg by mouth at bedtime Active nabumetone 750 mg oral tablet (14 sources) Nonsteroidal Anti-inflammatory Drug Start: 09-05-2023 nabumetone (Relafen) 750 MG tablet 09/05/2023 Active OneTouch Verio - (10 sources) OneTouch Verio - USE TO TEST HOME BLOOD SUGAR ONCE DAILY In Vitro qd for 30 days Active OneTouch Verio - USE TO TEST HOME BLOOD SUGAR ONCE DAILY for 30 Active pioglitazone 15 mg oral tablet (4 sources) Peroxisome Proliferator Receptor alpha Agonist, Peroxisome Proliferator Receptor gamma Agonist, Thiazolidinedione Start: 01-04-2025 take 1 tablet by mouth once daily Pioglitazone 15 mg tablet Active 15 MG PO Daily January 04, 2025 1:00am tiZANidine 4 mg oral tablet (20 sources) Central alpha-2 Adrenergic Agonist Start: 04-14-2024 End: 12-10-2024 take 1 tablet by mouth once daily at bedtime Tizanidine 4 mg tablet Active 0 .ROUTE .COMPLEX December 10, 2024 10:11am TAKE 1 TABLET BY MOUTH EVERYDAY AT BEDTIME Start: 02-25-2024 End: 04-14-2024 take 1 capsule by mouth once daily at bedtime Tizanidine 4 mg capsule Discontinued 4 MG PO Daily at bedtime March 23, 2024 10:01am April 14, 2024 1:36pm Start: 01-05-2024 End: 02-25-2024 take 3 tablets by mouth once daily Tizanidine 2 mg tablet Discontinued 6 MG PO Daily January 05, 2024 7:12pm February 25, 2024 2:05pm Start: 11-09-2023 tiZANidine HCl 4 MG 1 1/2 tablet Orally q HS for 30 days Nov, Active Start: 12-23-2022 take 1 capsule by mo [facility] once daily at bedtime tiZANidine (Zanaflex) 6 MG capsule TAKE 1 CAPSULE BY MOUTH EVERYDAY AT BEDTIME 12/23/2022 Active Start: 03-31-2022 End: 01-05-2024 take 1 tablet by mouth once daily Tizanidine 2 mg tablet Discontinued 2 MG PO Daily March 31, 2022 12:00am January 05, 2024 7:12pm traMADol hydrochloride 50 mg oral tablet (15 sources) Opioid Agonist Start: 06-26-2024 take 1 tablet by mouth once daily Tramadol 50 mg tablet Active 50 MG PO Daily June 26, 2024 12:00am Start: 08-30-2023 take 1 tablet by angelika th three times daily as needed for pain traMADol (Ultram) 50 MG tablet TAKE 1 TABLET BY MOUTH THREE TIMES A DAY NEEDED FOR SEVERE PAIN 08/30/2023 Active take 1 tablet by angelika th twice daily as needed traMADol HCl 50 MG 1 tablet as needed Orally twice daily Active Completed/Discontinued Medications Medication Drug Class(es) Dates Sig (Normalized) Sig (Original) acetaminophen 325 mg oral capsule (1 source) Start: 02-25-2024 End: 03-23-2024 take 2 capsules by mouth every six hours as needed Acetaminophen 325 mg capsule Discontinued 650 MG PO Every 6 hours as needed February 25, 2024 12:00am March 23, 2024 9:44am albuterol 0.83 mg/ml inhalation solution (1 source) beta2-Adrenergic Agonist Start: 02-25-2024 End: 03-23-2024 take 2.5 mg by inhalation every four hours as needed Albuterol Sulfate 2.5 mg /3 mL (0.083 %) solution for nebulization Discontinued 2.5 MG INHALATION Every 4 hours as needed February 25, 2024 12:00am March 23, 2024 9:45am Blood-Glucose Sensor (Dexcom G7 Sensor) device (1 source) Start: 02-29-2024 End: 03-23-2024 Blood-Glucose Sensor (Dexcom G7 Sensor) device Discontinued 0 .Route 1 February 29, 2024 12:00am March 23, 2024 10:00am Use to test home BS 4x daily Blood-Glucose,Receiv er,Cont (Dexcom G7 Water Control Supervisor) misc (1 source) Start: 02-29-2024 End: 03-23-2024 Blood-Glucose,Recei ben,Cont (Dexcom G7 Water Control Supervisor) misc Discontinued 0 .Route 1 February 29, 2024 12:00am March 23, 2024 9:59am As directed doxycycline hyclate 100 mg oral capsule (1 source) Tetracycline-cla ss Drug Start: 02-25-2024 End: 03-23-2024 take 1 capsule by mouth twice daily Doxycycline Hyclate 100 mg capsule Discontinued 100 MG PO Twice daily 14 7 February 25, 2024 12:00am March 23, 2024 9:45am furosemide 40 mg oral tablet (3 sources) Loop Diuretic Start: 04-14-2024 End: 06-26-2024 take 1 tablet by mouth once daily Furosemide 40 mg tablet Discontinued 0 .ROUTE .COMPLEX April 14, 2024 4:42pm June 26, 2024 8:43am TAKE 1 TABLET BY MOUTH EVERY DAY Start: 02-25-2024 End: 04-14-2024 take 1 tablet by mouth once daily Furosemide 40 mg tablet Discontinued 40 MG PO Daily March 23, 2024 10:00am April 14, 2024 4:43pm glimepiride 4 mg oral tablet (20 sources) Sulfonylurea Start: 06-26-2024 End: 11-20-2024 take 1 tablet by mouth once daily Glimepiride 1 mg tablet Discontinued 1 MG PO Daily August 01, 2024 9:36am November 20, 2024 6:23pm Start: 05-18-2024 End: 05-18-2024 take 0.5 tablet by mouth once daily Glimepiride 1 mg tablet Discontinued 0 .ROUTE .COMPLEX May 18, 2024 4:24pm May 18, 2024 5:17pm TAKE 1/2 TABLET BY MOUTH DAILY FOR 30 DAYS Start: 04-24-2024 End: 06-26-2024 take 0.5 mg by mouth once daily Glimepiride 1 mg table t Discontinued 0.5 MG PO Daily May 18, 2024 5:16pm June 26, 2024 7:57pm Start: 03-24-2023 End: 11-20-2024 take 1 tablet by mouth once daily Glimepiride 4 mg tablet Discontinued 4 MG PO Daily November 20, 2024 6:23pm November 20, 2024 6:36pm Start: 03-31-2022 End: 02-25-2024 take 1 tablet by mouth once daily Glimepiride 1 mg tablet Discontinued 1 MG PO Daily March 31, 2022 12:00am February 25, 2024 2:05pm Glimepiride 4 MG 1 1/2 tab taken [...] the day Orally Once a day Active Insulin Lispro (Humalog Kwikpen Insulin) 100 unit/mL insulin pen (1 source) Start: 02-25-2024 End: 03-23-2024 Insulin Lispro (Humalog Kwikpen Insulin) 100 unit/mL insulin pen Discontinued 1 sliding scale dose SUBCUT Use as Directed February 25, 2024 12:00am March 23, 2024 9:36am magnesium oxide 400 mg oral tablet (1 source) Start: 02-25-2024 End: 06-26-2024 take 2 tablets by mouth twice daily Magnesium Oxide 400 mg magnesium tablet Discontinued 800 MG PO Twice daily February 25, 2024 12:00am June 26, 2024 8:44am metFORMIN hydrochloride 1000 mg oral tablet (20 sources) Biguanide Start: 06-19-2024 End: 06-26-2024 Metformin 1,000 mg tablet Discontinued 500 MG PO Twice daily June 19, 2024 12:00am June 26, 2024 8:44am Start: 03-23-2024 End: 04-24-2024 Metformin 1,000 mg tablet Discontinued 500 MG PO Twice daily 30 30 March 23, 2024 12:00am April 24, 2024 4:58pm Start: 03-19-2023 End: 03-23-2024 take 1 tablet by mouth twice daily at mealtime Metformin 1,000 mg tablet Discontinued 1000 MG PO Twice daily with meals February 25, 2024 12:00am March 23, 2024 9:36am Start: 03-31-2022 End: 03-31-2022 Metformin 1,000 mg tablet Discontinued MG TABLET March 31, 2022 12:00am March 31, 2022 2:25pm Start: 03-31-2022 End: 02-25-2024 take 1 tablet by mouth once daily Metformin 1,000 mg tablet Discontinued 1000 MG PO Daily March 31, 2022 12:00am February 25, 2024 2:05pm mupirocin 0.02 mg/mg topical ointment (1 source) RNA Synthetase Inhibitor Antibacterial Start: 02-25-2024 End: 03-23-2024 Mupirocin 2 % ointment Discontinued 1 APPLIC TOPICAL Twice daily 22 February 25, 2024 12:00am March 23, 2024 9:46am nitroglycerin 0.4 mg sublingual tablet (1 source) Nitrate Vasodilator Start: 02-25-2024 End: 03-23-2024 Nitroglycerin 0.4 mg tablet, sublingual Discontinued 0.4 MG SUBLINGUAL every 5 to 15 minutes as needed February 25, 2024 12:00am March 23, 2024 10:02am do not exceed 3 doses per episode polyethylene glycol 3350 80737 mg powder for oral solution (9 sources) Osmotic Laxative Polyethylene Gl ycol 3350 17 GM/SCOOP USE DIRECTED TWICE A DAY for 30 Not-Taking/PRN Polyethylene Glycol 3350 17 GM/SCOOP (1 source) Polyethylene Gly col 3350 17 GM/SCOOP USE DIRECTED TWICE A DAY for 30 Not-Taking Problems Problem Classification Problem Date Documented Da te Episodic/Chronic Deficiency and other anemia (1 source) Anemia; Translations: [Anemia, unspecified] 03-23-2024 Episodic Diabetes mellitus with complications (20 sources) Type 2 diabetes mellitus; Translations: [Type 2 diabetes mellitus with hyperglycemia] Onset: 02-03-2023 Chronic Disorders of lipid metabolism (20 sources) Hypercholesterolemia ; Translations: [Pure hypercholesterolemia , unspecified] Onset: 02-05-2023 Chronic Essential hypertension (16 sources) Essential hypertension; Translations: [Essential (primary) hypertension] Onset: 02-05-2023 Chronic Mycoses (6 sources) Onychomycosis; Translations: [Tinea unguium] 10-19-2024 Episodic Other aftercare (3 sources) Other group home (current) drug therapy; Translations: [OTH LONGTERM CURRENT DRUG THERAPY] Onset: 02-05-2023 Episodic Other aftercare (1 source) Drug therapy finding; Translations: [Other group home (current) drug therapy] 03-23-2024 Episodic Other and ill-defined heart disease (1 source) Cardiomegaly; Translations: [Cardiomegaly] Onset: 01-01-2024 Chronic Other bone disease and musculoskeletal deformities (10 sources) Idiopathic kyphoscoliosis; Translations: [Other idiopathic scoliosis, site unspecified] Chronic Other bone disease and musculoskeletal deformities (3 sources) Other idiopathic scoliosis, site unspecified Chronic Other connective tissue disease (3 sources) Other muscle spasm Episodic Other connective tissue disease (6 sources) Pain of toe of right foot; Translations: [Pain in right toe(s)] 10-19-2024 Episodic Other connective tissue disease (6 sources) Pain of toe of left foot; Translations: [Pain in left toe(s)] 10-19-2024 Episodic Other diseases of veins and lymphatics (1 source) Venous insufficiency of leg; Translations: [Venous insufficiency (chronic) (peripheral)] 02-25-2024 Episodic Other diseases of veins and lymphatics (1 source) Venous insufficiency (chronic) (peripheral); Translations: [Venous (peripheral) insufficiency, unspecified] 04-12-2025 Episodic Other lower respiratory disease (3 sources) Hypoxia; Translations: [Hypoxemia] 10-04-2024 Episodic Other lower respiratory disease (2 sources) Snoring; Translations: [Snoring] 10-04-2024 Episodic Other lower respiratory disease (1 source) Hypoxemia; Translations: [Hypoxemia] 04-12-2025 Episodic Other nutritional; endocrine; and metabolic disorders (1 source) Obesity; Translations: [Obesity, unspecified] 04-03-2025 Chronic Other nutritional; endocrine; and metabolic disorders (1 source) Obesity, unspecified; Translations: [Obesity, unspecified] 04-12-2025 Chronic Other screening for suspected conditions (not mental disorders or infectious disease) (5 sources) Encounter for screening for malignant neoplasm of prostate; Translations: [Patient encounter status] Onset: 02-05-2023 Episodic Comment on above: Problem List clean-u p per request of Phys. 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] Onset: 01-04-2024 07-05-2024 Chronic Comment on above: Echo: LVEF 65%, ALFONSO, dilated RV, RVSP 39 - 06/2024 Pulmonary heart disease (3 sources) Other pulmonary embolism without acute cor pulmonale; Translations: [Pulmonary embolism] Onset: 01-01-2024 02-24-2024 Episodic Comment on above: B/L PE - 12/2023 Residual codes; unclassified (3 sources) Obstructive sleep apnea syndrome; Translations: [Obstructive sleep apnea (adult) (pediatric)] 10-04-2024 Chronic Comment on above: AHI 29 w/ Psat 72% Residual codes; unclassified (2 sources) Hypersomnia; Translations: [Hypersomnia, unspecified] 10-04-2024 Chronic Residual codes; unclassified (1 source) Obstructive sleep apnea (adult) (pediatric); Translations: [Obstructive sleep apnea (adult)(pediatric)] 04-12-2025 Chronic Rheumatoid arthritis and related disease (11 sources) Ankylosing spondylitis; Translations: [Ankylosing spondylitis of [...] [Moles/Vol] 8 mmol/L Low 9-17 [facility] Comment on above: Performed By: #### B MPX, CDP ####[facility] [address] [place], [place] [address])[phone] Director: Rafa Prieot MD Calcium [Mass/Vol] 7.9 mg/dL Low 8.6-10.4 [facility] Comment on above: Performed By: #### B MPX, CDP ####[facility] [address] [place], [place] [phone] Director: Rafa Prieto MD Chloride [Moles/Vol] 97 mmol/L Low 98-107 [facility] Comment on above: Performed By: #### B MPX, CDP ####[facility] [address] [place], [place] [phone] Director: Rafa Prieto MD CO2 [Moles/Vol] 25 mmol/L Normal 20-31 [facility] Comment on above: Performed By: #### B MPX, CDP ####[facility] [address] [place] [address] Lab Director: Rafa Prieto MD Creatinine [Mass/Vol] 0.6 mg/dL Low 0.7-1.2 [facility] Comment on above: Performed By: #### B MPX, CDP ####[facility] [address] [place] [address] [phone] Director: Rafa Prieto MD GFR/1.73 sq M.predicted among non-blacks MDRD (S/P/Bld) [Vol rate/Area] mL/min/{1.73_m2} Normal >60 [facility] Comment on above: Result Comment: These results [...] secretion. Performed By: #### B MPX, CDP ####[facility] [address] [place] [address] [phone] Director: Rafa Prieto MD Glucose [Mass/Vol] 122 mg/dL High 70-99 [facility] Comment on above: Performed By: #### B MPX, CDP ####[facility] [address] [place] [address] [phone] Director: Rafa Prieto MD Potassium [Moles/Vol] 3.9 mmol/L Normal 3.7-5.3 [facility] Comment on above: Performed By: #### B MPX, CDP ####[facility] [address] [place], [place] [phone] Director: Rafa Prieto MD Sodium [Moles/Vol] 130 mmol/L Low 135-144 [facility] Comment on above: Performed By: #### B MPX, CDP ####[facility] [address] [place], [place] [phone] Director: Rafa Prieto MD Urea nitrogen [Mass/Vol] 10 mg/dL Normal 6-20 [facility] Comment on above: Performed By: #### B MPX, CDP ####[address] [address])[phone] Director: Rafa Prieto MD CBC with Diffon 01-06-2024 Abs. Basophil 0.04 k/uL Normal 0.00-0.20 [facility] Comment on above: Performed By: #### H EPXA, PTT #### [facility] [address] [place] [phone] [employer] Merchandiser: Rafa Prieto MD Abs.Imm.Granulocyte 0.03 k/uL Normal 0.00-0.30 [facility] Comment on above: Performed By: #### H EPXA, PTT #### [facility] [address] [place] [phone] [employer] Merchandiser: Rafa Prieto MD Abs.Neutrophil (Seg) 5.00 k/uL Normal 1.50-8.10 [facility] Comment on above: Performed By: #### H EPXA, PTT #### [facility] [address] [place] [phone] [employer] Merchandiser: Rafa Prieto MD Basophils/100 WBC (Bld) 1 % Normal 0-2 [facility] Comment on above: Performed By: #### H EPXA, PTT #### [facility] [address] [place] [address] [employer] Merchandiser: Rafa Prieto MD Eosinophils (Bld) [#/Vol] 0.38 10*3/uL Normal 0.00-0.44 [facility] Comment on above: Performed By: #### H EPXA, PTT #### [facility] [address] [place] [phone] [employer] Merchandiser: Rafa Prieto MD Eosinophils/100 WBC (Bld) 5 % High 1-4 [facility] Comment on above: Performed By: #### H EPXA, PTT #### [facility] [address] [place] [address] [employer] Merchandiser: Rafa Prieto MD Erythrocyte distribution width (RBC) [Ratio] 16.5 % High 11.8-14.4 [facility] Comment on above: Performed By: #### H EPXA, PTT #### [facility] [address] [place] [phone] [employer] Merchandiser: Rafa Prieto MD Hematocrit (Bld) [Volume fraction] 37.0 % Low 40.7-50.3 [facility] Comment on above: Performed By: #### H EPXA, PTT #### [address] [address] [employer] Merchandiser: Raaf Prieto MD Hemoglobin (Bld) [Mass/Vol] 10.7 g/dL Low 13.0-17.0 [facility] Comment on above: Performed By: #### H EPXA, PTT #### [address] [address] [employer] Merchandiser: Rafa Prieto MD Immature granulocytes/100 WBC (Bld) 0 % Normal 0 [facility] Comment on above: Performed By: #### H EPXA, PTT #### [address] [address] [employer] Merchandiser: Rafa Prieto MD Lymphocytes (Bld) [#/Vol] 1.55 10*3/uL Normal 1.10-3.70 [facility] Comment on above: Performed By: #### H EPXA, PTT #### [facility] [address] [place] [address] [employer] Merchandiser: Rafa Prieto MD Lymphocytes/100 WBC (Bld) 19 % Low 24-43 [facility] Comment on above: Performed By: #### H EPXA, PTT #### [facility] [address] [place] [phone] [employer] Merchandiser: Rafa Prieto MD MCH (RBC) [Entitic mass] 24.0 pg Low 25.2-33.5 [facility] Comment on above: Performed By: #### H EPXA, PTT #### [facility] [address] [place] [phone] [employer] Merchandiser: Rafa Prieto MD MCHC (RBC) [Mass/Vol] 28.9 g/dL Normal 28.4-34.8 [facility] Comment on above: Performed By: #### H EPXA, PTT #### [address] [address] [employer] Merchandiser: Rafa Prieto MD MCV (RBC) [Entitic vol] 83.0 fL Normal 82.6-102.9 [facility] Comment on above: Performed By: #### H EPXA, PTT #### [facility] [address] [place] [address] [employer] Merchandiser: Rafa Prieto MD Monocytes (Bld) [#/Vol] 0.99 10*3/uL Normal 0.10-1.20 [facility] Comment on above: Performed By: #### H EPXA, PTT #### [facility] [address] [place] [address] [employer] Merchandiser: Rafa Prieto MD Monocytes/100 WBC (Bld) 12 % Normal 3-12 [facility] Comment on above: Performed By: #### H EPXA, PTT #### [facility] [address] [place] [address] [employer] Merchandiser: Rafa Prieto MD Neutrophil (Seg) 63 % Normal 36-65 [facility] Comment on above: Performed By: #### H EPXA, PTT #### [facility] [address] [place] [address] [employer] Merchandiser: Rafa Prieto MD NRBC Automated 0.0 per 100 WBC Normal 0.0 [facility] Comment on above: Performed By: #### H EPXA, PTT #### [address] [address] [employer] Merchandiser: Rafa Prieto MD Platelet mean volume (Bld) [Entitic vol] 10.8 fL Normal 8.1-13.5 [facility] Comment on above: Performed By: #### H EPXA, PTT #### [address] [address] [employer] Merchandiser: Rafa Prieto MD Platelets (Bld) [#/Vol] 204 10*3/uL Normal 138-453 [facility] Comment on above: Performed By: #### H EPXA, PTT #### [address] [address] [employer] Merchandiser: Rafa Prieto MD RBC (Bld) [#/Vol] 4.46 10*6/uL Normal 4.21-5.77 [facility] Comment on above: Performed By: #### H EPXA, PTT #### [address] [address] [employer] Merchandiser: Rafa Prieto MD RBC morphology finding Nom (Bld) ANISOCYTOSIS PRESENT Normal [facility] Comment on above: Performed By: #### H EPXA, PTT #### [address] [phone] [employer] Merchandiser: Rafa Prieto MD WBC (Bld) [#/Vol] 8.0 10*3/uL Normal 3.5-11.3 [facility] [facility] Comment on above: Performed By: #### H EPXA, PTT #### [address] [address] Retail Field Merchandiser: Rafa Prieto MD Cult,Urineon 01-06-2024 Cult,Urine Specimen Description .CLEAN CATCH URINE Culture NO GROWTH Report Status FINAL 01/06/2024 Normal [facility] Comment on above: Performed By: #### U RC #### [address] [address] [employer] Merchandiser: Rafa Prieto MD Glucose,Whole Bloodon 2023 Glucose [Mass/Vol] 174 mg/dL High 75-110 [facility] Glucose [Mass/Vol] 192 mg/dL High 75-110 [facility] Glucose [Mass/Vol] 119 mg/dL High 75-110 [facility] Heparin Anti-Xaon 01-06-2024 Heparin Anti-Xa 0.41 IU/L Normal [facility] Comment on above: Performed By: #### H EPXA ####[address] [address] Lab Director: Rafa Prieto MD Basic Metab w/rfx MGon 01-05 Anion gap [Moles/Vol] 11 mmol/L Normal 9-17 [facility] Comment on above: Performed By: #### U RC #### [address] [address] [employer] Merchandiser: Rafa Prieto MD Calcium [Mass/Vol] 7.9 mg/dL Low 8.6-10.4 [facility] Comment on above: Performed By: #### U RC #### [facility] [address] [place] [address] [employer] Merchandiser: Rafa Prieto MD Chloride [Moles/Vol] 99 mmol/L Normal 98-107 [facility] Comment on above: Performed By: #### U RC #### [facility] [address] [place] [address] [employer] Merchandiser: Rafa Prieto MD CO2 [Moles/Vol] 24 mmol/L Normal 20-31 [facility] Comment on above: Performed By: #### U RC #### [facility] [address] [place] [address] [employer] Merchandiser: Rafa Prieto MD Creatinine [Mass/Vol] 0.6 mg/dL Low 0.7-1.2 [facility] Comment on above: Performed By: #### U RC #### [address] [address] Retail [employer] Merchandiser: Rafa Prieto MD GFR/1.73 sq M.predicted among non-blacks MDRD (S/P/Bld) [Vol rate/Area] mL/min/{1.73_m2} Normal >60 [facility] Comment on above: Result Comment: These results [...] Performed By: #### U RC #### [address] [address] [employer] Merchandiser: Rafa Prieto MD Glucose [Mass/Vol] 97 mg/dL Normal 70-99 [facility] Comment on above: Performed By: #### U RC #### [facility] [address] [place] [address] [employer] Merchandiser: Rafa Prieto MD Potassium [Moles/Vol] 4.3 mmol/L Normal 3.7-5.3 [facility] Comment on above: Performed By: #### U RC #### [facility] [address] [place] [address] [employer] Merchandiser: Rafa Prieto MD Sodium [Moles/Vol] 134 mmol/L Low 135-144 [facility] Comment on above: Performed By: #### U RC #### [facility] [address] [place] [address] [employer] Merchandiser: Rafa Prieto MD Urea nitrogen [Mass/Vol] 10 mg/dL Normal 6-20 [facility] Comment on above: Performed By: #### U RC #### [address] [address] [employer] Merchandiser: Rafa Prieto MD CBC with Diffon 01-05-2024 Abs. Basophil 0.00 k/uL Normal 0.0-0.2 [facility] Comment on above: Performed By: #### U RC #### [address] [address] [employer] Merchandiser: Rafa Prieto MD Abs.Imm.Granulocyte 0.00 k/uL Normal 0.00-0.30 [facility] Comment on above: Performed By: #### U RC #### [address] [address] [employer] Merchandiser: Rafa Prieto MD Abs.Neutrophil (Seg) 4.99 k/uL Normal 1.8-7.7 [facility] Comment on above: Performed By: #### U RC #### [address] [address] [employer] Merchandiser: Rafa Prieto MD Basophils/100 WBC (Bld) 0 % Normal 0-2 [facility] Comment on above: Performed By: #### U RC #### [address] [address] [employer] Merchandiser: Rafa Prieto MD Eosinophils (Bld) [#/Vol] 0.39 10*3/uL Normal 0.0-0.4 [facility] Comment on above: Performed By: #### U RC #### [address] [address] [employer] Merchandiser: Rafa Prieto MD Eosinophils/100 WBC (Bld) 5 % High 1-4 [facility] Comment on above: Performed By: #### U RC #### [address] [address] [employer] Merchandiser: Rafa Prieto MD Immature granulocytes/100 WBC (Bld) 0 % Normal 0 [facility] Comment on above: Performed By: #### U RC #### [address] [address] [employer] Merchandiser: Rafa Prieto MD Lymphocytes (Bld) [#/Vol] 1.48 10*3/uL Normal 1.0-4.8 [facility] Comment on above: Performed By: #### U RC #### [address] [address] [employer] Merchandiser: Rafa Prieto MD Lymphocytes/100 WBC (Bld) 19 % Low 24-44 [facility] Comment on above: Performed By: #### U RC #### [address] [address] [employer] Merchandiser: Rafa Prieto MD Monocytes (Bld) [#/Vol] 0.94 10*3/uL High 0.1-0.8 [facility] Comment on above: Performed By: #### U RC #### [address] [address] [employer] Merchandiser: Rafa Prieto MD Monocytes/100 WBC (Bld) 12 % High 1-7 [facility] Comment on above: Performed By: #### U RC #### [address] [address] [employer] Merchandiser: Rafa Prieto MD Morphology Rancho (Bld) [Interp] ANISOCYTOSIS PRESENT Normal [facility] Comment on above: Performed By: #### U RC #### [address] [address] [employer] Merchandiser: Rafa Prieto MD Neutrophil (Seg) 64 % Normal 36-66 [facility] Comment on above: Performed By: #### U RC #### [address] [address] [employer] Merchandiser: Rafa Prieto MD Erythrocyte distribution width (RBC) [Ratio] 16.6 % High 11.8-14.4 [facility] Comment on above: Performed By: #### U RC #### [place] [address] [employer] Merchandiser: Rafa Prieto MD Hematocrit (Bld) [Volume fraction] 38.6 % Low 40.7-50.3 [facility] Comment on above: Performed By: #### U RC #### [address] [address] [employer] Merchandiser: Rafa Prieto MD Hemoglobin (Bld) [Mass/Vol] 10.9 g/dL Low 13.0-17.0 [facility] Comment on above: Performed By: #### U RC #### [address] [address] [employer] Merchandiser: Rafa Prieto MD MCH (RBC) [Entitic mass] 24.0 pg Low 25.2-33.5 [facility] Comment on above: Performed By: #### U RC #### [address] [address] [employer] Merchandiser: Rafa Prieto MD MCHC (RBC) [Mass/Vol] 28.2 g/dL Low 28.4-34.8 [facility] Comment on above: Result Comment: TEST CONFIRMED Performed By: #### U RC #### [address] [address] [employer] Merchandiser: Rafa Prieto MD MCV (RBC) [Entitic vol] 85.0 fL Normal 82.6-102.9 [facility] Comment on above: Performed By: #### U RC #### [address] [place] [address] [employer] Merchandiser: Rafa Prieto MD NRBC Automated 0.0 per 100 WBC Normal 0.0 [facility] Comment on above: Performed By: #### U RC #### [address] [address] [employer] Merchandiser: Rafa Prieto MD Platelet mean volume (Bld) [Entitic vol] 11.9 fL Normal 8.1-13.5 [facility] Comment on above: Performed By: #### U RC #### [address] [address] [employer] Merchandiser: Rafa Prieto MD Platelets (Bld) [#/Vol] 192 10*3/uL Normal 138-453 [facility] Comment on above: Performed By: #### U RC #### [address] [address] [employer] Merchandiser: Rafa Prieto MD RBC (Bld) [#/Vol] 4.54 10*6/uL Normal 4.21-5.77 [facility] Comment on above: Performed By: #### U RC #### [address] [address] [employer] Merchandiser: Rafa Prieto MD WBC (Bld) [#/Vol] 7.8 10*3/uL Normal 3.5-11.3 [facility] Comment on above: Performed By: #### U RC #### [address] [address] [employer] Merchandiser: Rafa Prieto MD Glucose,Whole Bloodon 2023 Glucose [Mass/Vol] 147 mg/dL High 75-110 [facility] Glucose [Mass/Vol] 178 mg/dL High 75-110 [facility] Glucose [Mass/Vol] 158 mg/dL High 75-110 [facility] Glucose [Mass/Vol] 106 mg/dL Normal 75-110 [facility] Heparin Anti-Xaon 01-05-2024 Heparin Anti-Xa 0.41 IU/L Normal [facility] Comment on above: Performed By: #### U RC #### [facility] [address] [place] [address] [employer] Merchandiser: Rafa Prieto MD Basic Metab w/rfx MGon 01-04 Anion gap [Moles/Vol] 8 mmol/L Low 9-17 [facility] Comment on above: Performed By: #### H EPXA, PTT #### [facility] [address] [place] [address] [employer] Merchandiser: Rafa Prieto MD Calcium [Mass/Vol] 7.7 mg/dL Low 8.6-10.4 [facility] Comment on above: Performed By: #### H EPXA, PTT #### [facility] [address] [place] [address] [employer] Merchandiser: Rafa Prieto MD Chloride [Moles/Vol] 98 mmol/L Normal 98-107 [facility] Comment on above: Performed By: #### H EPXA, PTT #### [facility] [address] [place] [address] [employer] Merchandiser: Rafa Prieto MD CO2 [Moles/Vol] 26 mmol/L Normal 20-31 [facility] Comment on above: Performed By: #### H EPXA, PTT #### [facility] [address] [place] [address] [employer] Merchandiser: Rafa Prieto MD Creatinine [Mass/Vol] 0.6 mg/dL Low 0.7-1.2 [facility] Comment on above: Performed By: #### H EPXA, PTT #### [facility] [address] [place] [address] [employer] Merchandiser: Rafa Prieto MD GFR/1.73 sq M.predicted among non-blacks MDRD (S/P/Bld) [Vol rate/Area] mL/min/{1.73_m2} Normal >60 [facility] Comment on above: Result Comment: These results [...] Performed By: #### H EPXA, PTT #### [facility] [address] [place] [address] [employer] Merchandiser: Rafa Prieto MD Glucose [Mass/Vol] 94 mg/dL Normal 70-99 [facility] Comment on above: Performed By: #### H EPXA, PTT #### [facility] [address] [place] [address] [employer] Merchandiser: Rafa Prieto MD Potassium [Moles/Vol] 3.9 mmol/L Normal 3.7-5.3 [facility] Comment on above: Performed By: #### H EPXA, PTT #### [facility] [address] [place] [address] [employer] Merchandiser: Rafa Prieto MD Sodium [Moles/Vol] 132 mmol/L Low 135-144 [facility] Comment on above: Performed By: #### H EPXA, PTT #### [employer] [address] [place] [address] [employer] Merchandiser: Rafa Prieto MD Urea nitrogen [Mass/Vol] 12 mg/dL Normal 6-20 [facility] Comment on above: Performed By: #### H EPXA, PTT #### [facility] [address] [place] [address] [employer] Merchandiser: Rafa Prieto MD CBC with Diffon 01-04-2024 Abs. Basophil 0.04 k/uL Normal 0.00-0.20 [facility] Comment on above: Performed By: #### H EPXA, PTT #### [address] [address] [employer] Merchandiser: Rafa Prieto MD Abs.Imm.Granulocyte 0.04 k/uL Normal 0.00-0.30 [facility] Comment on above: Performed By: #### H EPXA, PTT #### [facility] [address] [place] [address] [employer] Merchandiser: Rafa Prieto MD Abs.Neutrophil (Seg) 5.71 k/uL Normal 1.50-8.10 [facility] Comment on above: Performed By: #### H EPXA, PTT #### [facility] [address] [place] [address] [employer] Merchandiser: Rafa Prieto MD Basophils/100 WBC (Bld) 0 % Normal 0-2 [facility] Comment on above: Performed By: #### H EPXA, PTT #### [facility] [address] [place] [address] [employer] Merchandiser: Rafa Prieto MD Eosinophils (Bld) [#/Vol] 0.30 10*3/uL Normal 0.00-0.44 [facility] Comment on above: Performed By: #### H EPXA, PTT #### [facility] [address] [place] [address] [employer] Merchandiser: Rafa Prieto MD Eosinophils/100 WBC (Bld) 3 % Normal 1-4 [facility] Comment on above: Performed By: #### H EPXA, PTT #### [facility] [address] [place] [address] [employer] Merchandiser: Rafa Prieto MD Erythrocyte distribution width (RBC) [Ratio] 16.1 % High 11.8-14.4 [facility] Comment on above: Performed By: #### H EPXA, PTT #### [facility] [address] [place] [address] [employer] Merchandiser: Rafa Prieto MD Hematocrit (Bld) [Volume fraction] 36.0 % Low 40.7-50.3 [facility] Comment on above: Performed By: #### H EPXA, PTT #### [facility] [address] [place] [address] [employer] Merchandiser: Rafa Prieto MD Hemoglobin (Bld) [Mass/Vol] 10.5 g/dL Low 13.0-17.0 [facility] Comment on above: Performed By: #### H EPXA, PTT #### [address] [address] [employer] Merchandiser: Rafa Prieto MD Immature granulocytes/100 WBC (Bld) 0 % Normal 0 [facility] Comment on above: Performed By: #### H EPXA, PTT #### [address] [address] [employer] Merchandiser: Rafa Prieto MD Lymphocytes (Bld) [#/Vol] 1.76 10*3/uL Normal 1.10-3.70 [facility] Comment on above: Performed By: #### H EPXA, PTT #### [facility] [address] [place] [address] [employer] Merchandiser: Rafa Prieto MD Lymphocytes/100 WBC (Bld) 20 % Low 24-43 [facility] Comment on above: Performed By: #### H EPXA, PTT #### [facility] [address] [place] [address] [employer] Merchandiser: Rafa Prieto MD MCH (RBC) [Entitic mass] 24.1 pg Low 25.2-33.5 [facility] Comment on above: Performed By: #### H EPXA, PTT #### [address] [address] [employer] Merchandiser: Rafa Prieto MD MCHC (RBC) [Mass/Vol] 29.2 g/dL Normal 28.4-34.8 [facility] Comment on above: Performed By: #### H EPXA, PTT #### [facility] [address] [place] [address] [employer] Merchandiser: Rafa Prieto MD MCV (RBC) [Entitic vol] 82.8 fL Normal 82.6-102.9 [facility] Comment on above: Performed By: #### H EPXA, PTT #### [address] [address] [employer] Merchandiser: Rafa Prieto MD Monocytes (Bld) [#/Vol] 1.12 10*3/uL Normal 0.10-1.20 [facility] Comment on above: Performed By: #### H EPXA, PTT #### [address] [address] [employer] Merchandiser: Rafa Prieto MD Monocytes/100 WBC (Bld) 13 % High 3-12 [facility] Comment on above: Performed By: #### H EPXA, PTT #### [address] [address] [employer] Merchandiser: Rafa Prieto MD Neutrophil (Seg) 64 % Normal 36-65 [facility] Comment on above: Performed By: #### H EPXA, PTT #### [facility] [address] [place] [address] [employer] Merchandiser: Rafa Prieto MD NRBC Automated 0.0 per 100 WBC Normal 0.0 [facility] Comment on above: Performed By: #### H EPXA, PTT #### [facility] [address] [place] [address] [employer] Merchandiser: Rafa Prieto MD Platelet mean volume (Bld) [Entitic vol] 11.1 fL Normal 8.1-13.5 [facility] Comment on above: Performed By: #### H EPXA, PTT #### [address] [place] [address] [employer] Merchandiser: Rafa Prieto MD Platelets (Bld) [#/Vol] 207 10*3/uL Normal 138-453 [facility] Comment on above: Performed By: #### H EPXA, PTT #### [address] [address] [employer] Merchandiser: Rafa Prieto MD RBC (Bld) [#/Vol] 4.35 10*6/uL Normal 4.21-5.77 [facility] Comment on above: Performed By: #### H EPXA, PTT #### [facility] [address] [place] [address] [employer] Merchandiser: Rafa Prieto MD RBC morphology finding Nom (Bld) ANISOCYTOSIS PRESENT Normal [facility] Comment on above: Performed By: #### H EPXA, PTT #### [address] [address] [employer] Merchandiser: Rafa Prieto MD WBC (Bld) [#/Vol] 9.0 10*3/uL Normal 3.5-11.3 [facility] Comment on above: Performed By: #### H EPXA, PTT #### [facility] [address] [place] [address] [employer] Merchandiser: Rafa Prieto MD Glucose,Whole Bloodon 2023 Glucose [Mass/Vol] 143 mg/dL High 75-110 [facility] Glucose [Mass/Vol] 150 mg/dL High 75-110 [facility] Hemoglobin A1Con 01-04-2024 Glucose [Mass/Vol] 140 mg/dL Normal [facility] Comment on above: Result Comment: The ADA and AACC recommend providing the estimated average glucose result to permit better patient understanding of their HBA1c result. Performed By: #### H EPXA, PTT #### [facility] [address] [place] [address] [employer] Merchandiser: Rafa Prieto MD HbA1c (Bld) [Mass fraction] 6.5 % High 4.0-6.0 [facility] Comment on above: Performed By: #### H EPXA, PTT #### [facility] [address] [place] [address] [employer] Merchandiser: Rafa Prieto MD Heparin Anti-Xaon 5 Heparin Anti-Xa 0.53 IU/L Normal [facility] Comment on above: Performed By: #### T ROPI #### [address] [address] [employer] Merchandiser: Rafa Prieto MD Heparin Anti-Xa 0.65 IU/L Normal [facility] Comment on above: Performed By: #### U RC #### [address] [address] [employer] Merchandiser: Rafa Prieto MD Heparin Anti-Xa 0.29 IU/L Normal [facility] Comment on above: Performed By: #### H EPXA, PTT #### [facility] [address] [place] [address] [employer] Merchandiser: Rafa Prieto MD Basic Metab w/rfx MGon 01-03 Anion gap [Moles/Vol] 8 mmol/L Low 9-17 [facility] Comment on above: Performed By: #### H EPXA, PTT #### [facility] [address] [place] [address] [employer] Merchandiser: Rafa Prieto MD Calcium [Mass/Vol] 7.8 mg/dL Low 8.6-10.4 [facility] Comment on above: Performed By: #### H EPXA, PTT #### [facility] [place] [address] [employer] Merchandiser: Rafa Prieto MD Chloride [Moles/Vol] 94 mmol/L Low 98-107 [facility] Comment on above: Performed By: #### H EPXA, PTT #### [facility] [place] [address] [employer] Merchandiser: Rafa Prieto MD CO2 [Moles/Vol] 25 mmol/L Normal 20-31 [facility] Comment on above: Performed By: #### H EPXA, PTT #### [facility] [address] [place] [address] [employer] Merchandiser: Rafa Prieto MD Creatinine [Mass/Vol] 0.6 mg/dL Low 0.7-1.2 [facility] Comment on above: Performed By: #### H EPXA, PTT #### [facility] [address] [place] [address] [employer] Merchandiser: Rafa Prieto MD GFR/1.73 sq M.predicted among non-blacks MDRD (S/P/Bld) [Vol rate/Area] mL/min/{1.73_m2} Normal >60 [facility] Comment on above: Result Comment: These results [...] Performed By: #### H EPXA, PTT #### [facility] [address] [place] [address] [employer] Merchandiser: Rafa Prieto MD Glucose [Mass/Vol] 108 mg/dL High 70-99 [facility] Comment on above: Performed By: #### H EPXA, PTT #### [facility] [place] [address] [employer] Merchandiser: Rafa Prieto MD Potassium [Moles/Vol] 3.7 mmol/L Normal 3.7-5.3 [facility] Comment on above: Performed By: #### H EPXA, PTT #### [facility] [address] [place] [address] [employer] Merchandiser: Rafa Prieto MD Sodium [Moles/Vol] 127 mmol/L Low 135-144 [facility] Comment on above: Performed By: #### H EPXA, PTT #### [facility] [address] [place] [address] [employer] Merchandiser: Rafa Prieto MD Urea nitrogen [Mass/Vol] 15 mg/dL Normal 6-20 [facility] Comment on above: Performed By: #### H EPXA, PTT #### [facility] [address] [place] [address] [employer] Merchandiser: Rafa Prieto MD Brain Natri. Peptideon 01-03 Natriuretic peptide B (Bld) [Mass/Vol] 1253 pg/mL High <300 [facility] Comment on above: Result Comment: An age-independent cutoff point of 300 pg/ml has a 98% negative predictive value excluding acute heart failure. Performed By: #### H EPXA, BNP, TROPI ####[facility] [id number] [place] [address] Lab Director: Rafa Prieto MD CBC with Diffon 01-03-2024 Abs. Basophil 0.05 k/uL Normal 0.00-0.20 [facility] Comment on above: Performed By: #### H EPXA, PTT #### [facility] [place] [address] [employer] Merchandiser: Rafa Prieto MD Abs.Imm.Granulocyte <0.03 Normal 0.00-0.30 [facility] Comment on above: Performed By: #### H EPXA, PTT #### [address] [address] Retail Field Merchandiser: Rafa Prieto MD Abs.Neutrophil (Seg) 4.63 k/uL Normal 1.50-8.10 [facility] Comment on above: Performed By: #### H EPXA, PTT #### [facility] [address] [place] [address] [employer] Merchandiser: Rafa Prieto MD Basophils/100 WBC (Bld) 1 % Normal 0-2 [facility] Comment on above: Performed By: #### H EPXA, PTT #### [place] [address] [employer] Merchandiser: Rafa Prieto MD Eosinophils (Bld) [#/Vol] 0.23 10*3/uL Normal 0.00-0.44 [facility] Comment on above: Performed By: #### H EPXA, PTT #### [place] [address] [employer] Merchandiser: Rafa Prieto MD Eosinophils/100 WBC (Bld) 3 % Normal 1-4 [facility] Comment on above: Performed By: #### H EPXA, PTT #### [facility] [address] [place] [address] [employer] Merchandiser: Rafa Prieto MD Erythrocyte distribution width (RBC) [Ratio] 16.2 % High 11.8-14.4 [facility] Comment on above: Performed By: #### H EPXA, PTT #### [facility] [address] [place] [address] [employer] Merchandiser: Rafa Prieto MD Hematocrit (Bld) [Volume fraction] 37.7 % Low 40.7-50.3 [facility] Comment on above: Performed By: #### H EPXA, PTT #### [facility] [address] [place] [address] [employer] Merchandiser: Rafa Prieto MD Hemoglobin (Bld) [Mass/Vol] 10.9 g/dL Low 13.0-17.0 [facility] Comment on above: Performed By: #### H EPXA, PTT #### [facility] [address] [place] [address] [employer] Merchandiser: Rafa Prieto MD Immature granulocytes/100 WBC (Bld) 0 % Normal 0 [facility] Center Comment on above: Performed By: #### H EPXA, PTT #### [address] [address] [employer] Field Merchandiser: Rafa Prieto MD Lymphocytes (Bld) [#/Vol] 1.96 10*3/uL Normal 1.10-3.70 [facility] Comment on above: Performed By: #### H EPXA, PTT #### [address] [address] [employer] Merchandiser: Rafa Prieto MD Lymphocytes/100 WBC (Bld) 24 % Normal 24-43 [facility] Comment on above: Performed By: #### H EPXA, PTT #### [address] [address] [employer] Merchandiser: Rafa Prieto MD MCH (RBC) [Entitic mass] 24.2 pg Low 25.2-33.5 [facility] Comment on above: Performed By: #### H EPXA, PTT #### [facility] [address] [place] [address] [employer] Merchandiser: Rafa Prieto MD MCHC (RBC) [Mass/Vol] 28.9 g/dL Normal 28.4-34.8 [facility] Comment on above: Performed By: #### H EPXA, PTT #### [address] [address] [employer] Merchandiser: Rafa Prieto MD MCV (RBC) [Entitic vol] 83.6 fL Normal 82.6-102.9 [facility] Comment on above: Performed By: #### H EPXA, PTT #### [address] [address] [employer] Merchandiser: Rafa Prieto MD Monocytes (Bld) [#/Vol] 1.23 10*3/uL High 0.10-1.20 [facility] Comment on above: Performed By: #### H EPXA, PTT #### [address] [address] [employer] Merchandiser: Rafa Prieto MD Monocytes/100 WBC (Bld) 15 % High 3-12 [facility] Comment on above: Performed By: #### H EPXA, PTT #### [address] [address] [employer] Merchandiser: Rafa Prieto MD Neutrophil (Seg) 57 % Normal 36-65 [facility] Comment on above: Performed By: #### H EPXA, PTT #### [address] [address] [employer] Merchandiser: Rafa Prieto MD NRBC Automated 0.0 per 100 WBC Normal 0.0 [facility] Comment on above: Performed By: #### H EPXA, PTT #### [address] [address] [employer] Merchandiser: Rafa Prieto MD Platelet mean volume (Bld) [Entitic vol] 10.8 fL Normal 8.1-13.5 [facility] Comment on above: Performed By: #### H EPXA, PTT #### [address] [address] [employer] Merchandiser: Rafa Prieto MD Platelets (Bld) [#/Vol] 194 10*3/uL Normal 138-453 [facility] Comment on above: Performed By: #### H EPXA, PTT #### [facility] [address] [place] [address] [employer] Merchandiser: Rafa Prieto MD RBC (Bld) [#/Vol] 4.51 10*6/uL Normal 4.21-5.77 [facility] Comment on above: Performed By: #### H EPXA, PTT #### [facility] [address] [place] [address] [employer] Merchandiser: Rafa Prieto MD RBC morphology finding Nom (Bld) ANISOCYTOSIS PRESENT Normal [facility] Comment on above: Performed By: #### H EPXA, PTT #### [facility] [address] [place] [address] [employer] Merchandiser: Rafa Prieto MD WBC (Bld) [#/Vol] 8.1 10*3/uL Normal 3.5-11.3 [facility] Comment on above: Performed By: #### H EPXA, PTT #### [facility] [address] [place] [address] [employer] Merchandiser: Rafa Prieto MD Glucose,Whole Bloodon 2023 Glucose [Mass/Vol] 143 mg/dL High 75-110 [facility] Glucose [Mass/Vol] 107 mg/dL Normal 75-110 [facility] Heparin Anti-Xaon 01-03-2024 Heparin Anti-Xa 0.48 IU/L Normal [facility] Comment on above: Performed By: #### H EPXA, BNP, TROPI ####[facility] [address] [place] [address] Lab Director: Rafa Prieto MD Osmolalityon 01-03-2024 Osmolality [Osmolality] 280 mosm/kg Normal 275-295 [facility] Comment on above: Performed By: #### O SMO, REJEC ####[facility] [address] [place] [address] Lab Director: Rafa Prieto MD Osmolality, Urineon 01-03-20 24 Osmolality - Urine 293 mOsm/kg Normal 80-1300 [facility] Comment on above: Performed By: #### U RC #### [address] [address] [employer] Merchandiser: Rafa Prieto MD Sodium, Random Uron 01-03-20 24 Na Conc. Urine <20 Normal [facility] Comment on above: Result Comment: No n ormal range established. Performed By: #### U RC #### [address] [address] [employer] Merchandiser: Rafa Prieto MD Specimen Rejectionon 024 Reason for rejection Unable to perform testing: Specimen quantity not sufficient. Normal [facility] Comment on above: Performed By: #### O SMO, REJEC ####[address] [address] Lab Director: Rafa Prieto MD Source of sample .BLOOD Normal [facility] Comment on above: Performed By: #### O SMO, REJEC ####[address] [address] Lab Director: Rafa Prieto MD Test ordered BNP TROPI Normal [facility] Comment on above: Performed By: #### O SMO, REJEC ####[address] [address] Lab Director: Rafa Prieto MD Troponinon 01-03-2024 Troponin, High Sens 57 ng/L Critically high 0-22 [facility] Comment on above: Result Comment: High Sensitivity Troponin values cannot be compared with other Troponin methodologies. Performed By: #### U RC #### [address] [address] [employer] Merchandiser: Rafa Prieto MD XR CHEST PORTABLEon 01-03-20 [...] MD 01/03/24 Final result Normal [facility] Arterial Bld Gas,POCon 01-02 Rao Test Positive Normal [facility] HCO3 (Bld) [Moles/Vol] 30.0 mmol/L High 21.0-28.0 [facility] Oxygen saturation in Blood 93.2 % Low 94.0-98.0 [facility] Patient Temp. 37.7 Normal [facility] pCO2, Arterial 53.1 mm Hg High 35.0-48.0 [facility] pCO2, Temp Adjust 54.7 mm Hg Normal [facility] pH, Arterial 7.361 Normal 7.350-7.450 [facility] pH, Temp Adjust 7.350 Normal [facility] pO2, Arterial 71.8 mm Hg Low 83.0-108.0 [facility] pO2, Temp Adjust 75.2 mm Hg Normal [facility] Positive Base Excess (calc) 3.3 mmol/L High 0.0-3.0 [facility] Site Drawn Left Radial Artery Normal [facility] Basic Metab w/rfx MGon 01-02 Anion gap [Moles/Vol] 9 mmol/L Normal 9-17 [facility] Comment on above: Performed By: #### H EPXA, PTT #### [employer] [facility] [place] [address] [employer] Merchandiser: Rafa Prieto MD Calcium [Mass/Vol] 8.0 mg/dL Low 8.6-10.4 [facility] Comment on above: Performed By: #### H EPXA, PTT #### [facility] [address] [place] [address] [employer] Merchandiser: Rafa Prieto MD Chloride [Moles/Vol] 100 mmol/L Normal 98-107 [facility] Comment on above: Performed By: #### H EPXA, PTT #### [facility] [address] [place] [address] [employer] Merchandiser: Rafa Prieto MD CO2 [Moles/Vol] 26 mmol/L Normal 20-31 [facility] Comment on above: Performed By: #### H EPXA, PTT #### [facility] [address] [place] [address] [employer] Merchandiser: Rafa Prieto MD Creatinine [Mass/Vol] 0.7 mg/dL Normal 0.7-1.2 [facility] Comment on above: Performed By: #### H EPXA, PTT #### [address] [address] [employer] Merchandiser: Rafa Prieto MD GFR/1.73 sq M.predicted among non-blacks MDRD (S/P/Bld) [Vol rate/Area] mL/min/{1.73_m2} Normal >60 [facility] Comment on above: Result Comment: These results [...] Performed By: #### H EPXA, PTT #### [facility] [address] [place] [address] [employer] Merchandiser: Rafa Prieto MD Glucose [Mass/Vol] 110 mg/dL High 70-99 [facility] Comment on above: Performed By: #### H EPXA, PTT #### [facility] [address] [place] [address] [employer] Merchandiser: Rafa Prieto MD Potassium [Moles/Vol] 3.9 mmol/L Normal 3.7-5.3 [facility] Comment on above: Performed By: #### H EPXA, PTT #### [facility] [address] [place] [address] [employer] Merchandiser: Rafa Prieto MD Sodium [Moles/Vol] 135 mmol/L Normal 135-144 [facility] Comment on above: Performed By: #### H EPXA, PTT #### [facility] [address] [place] [address] [employer] Merchandiser: Rafa Prieto MD Urea nitrogen [Mass/Vol] 15 mg/dL Normal 6-20 [facility] Comment on above: Performed By: #### H EPXA, PTT #### [facility] [address] [place] [address] [employer] Merchandiser: Rafa Prieto MD CBC with Diffon 01-02-2024 Abs. Basophil 0.00 k/uL Normal 0.0-0.2 [facility] Comment on above: Performed By: #### H EPXA, PTT #### [facility] [address] [place] [address] [employer] Merchandiser: Rafa Prieto MD Abs.Imm.Granulocyte 0.00 k/uL Normal 0.00-0.30 [facility] Comment on above: Performed By: #### H EPXA, PTT #### [facility] [address] [place] [address] [employer] Merchandiser: Rafa Prieto MD Abs.Neutrophil (Seg) 4.48 k/uL Normal 1.8-7.7 [facility] Comment on above: Performed By: #### H EPXA, PTT #### [facility] [address] [place] [address] [employer] Merchandiser: Rafa Prieto MD Basophils/100 WBC (Bld) 0 % Normal 0-2 [facility] Comment on above: Performed By: #### H EPXA, PTT #### [facility] [address] [place] [address] [employer] Merchandiser: Rafa Prieto MD Eosinophils (Bld) [#/Vol] 0.08 10*3/uL Normal 0.0-0.4 [facility] Comment on above: Performed By: #### H EPXA, PTT #### [facility] [address] [place] [address] [employer] Merchandiser: Rafa Prieto MD Eosinophils/100 WBC (Bld) 1 % Normal 1-4 [facility] Comment on above: Performed By: #### H EPXA, PTT #### [address] [address] [employer] Merchandiser: Rafa rPieto MD Immature granulocytes/100 WBC (Bld) 0 % Normal 0 [facility] Comment on above: Performed By: #### H EPXA, PTT #### [facility] [address] [place] [address] [employer] Merchandiser: Rafa Prieto MD Lymphocytes (Bld) [#/Vol] 1.76 10*3/uL Normal 1.0-4.8 [facility] Comment on above: Performed By: #### H EPXA, PTT #### [facility] [address] [place] [address] [employer] Merchandiser: Rafa Prieto MD Lymphocytes/100 WBC (Bld) 22 % Low 24-44 [facility] Comment on above: Performed By: #### H EPXA, PTT #### [facility] [address] [place] [address] [employer] Merchandiser: Rafa Prieto MD Monocytes (Bld) [#/Vol] 1.68 10*3/uL High 0.1-0.8 [facility] Comment on above: Performed By: #### H EPXA, PTT #### [address] [address] [employer] Merchandiser: Rafa Prieto MD Monocytes/100 WBC (Bld) 21 % High 1-7 [facility] Comment on above: Performed By: #### H EPXA, PTT #### [address] [address] [employer] Merchandiser: Rafa Prieto MD Morphology Rancho (Bld) [Interp] ANISOCYTOSIS PRESENT Normal [facility] Comment on above: Performed By: #### H EPXA, PTT #### [address] [address] [employer] Merchandiser: Rafa Prieto MD Neutrophil (Seg) 56 % Normal 36-66 [facility] Comment on above: Performed By: #### H EPXA, PTT #### [address] [address] [employer] Merchandiser: Rafa Prieto MD Erythrocyte distribution width (RBC) [Ratio] 15.9 % High 11.8-14.4 [facility] Comment on above: Performed By: #### H EPXA, PTT #### [address] [address] [employer] Merchandiser: Rafa Prieto MD Hematocrit (Bld) [Volume fraction] 40.7 % Normal 40.7-50.3 [facility] Comment on above: Performed By: #### H EPXA, PTT #### [facility] [address] [place] [address] [employer] Merchandiser: Rafa Prieto MD Hemoglobin (Bld) [Mass/Vol] 11.6 g/dL Low 13.0-17.0 [facility] Comment on above: Performed By: #### H EPXA, PTT #### [address] [address] [employer] Merchandiser: Rafa Prieto MD MCH (RBC) [Entitic mass] 24.0 pg Low 25.2-33.5 [facility] Comment on above: Performed By: #### H EPXA, PTT #### [address] [address] [employer] Merchandiser: Rafa Prieto MD MCHC (RBC) [Mass/Vol] 28.5 g/dL Normal 28.4-34.8 [facility] Comment on above: Performed By: #### H EPXA, PTT #### [address] [address] [employer] Merchandiser: Rafa Prieto MD MCV (RBC) [Entitic vol] 84.1 fL Normal 82.6-102.9 [facility] Comment on above: Performed By: #### H EPXA, PTT #### [address] [address] [employer] Merchandiser: Rafa Prieto MD NRBC Automated 0.0 per 100 WBC Normal 0.0 [facility] Comment on above: Performed By: #### H EPXA, PTT #### [address] [address] [employer] Merchandiser: Rafa Prieto MD Platelet mean volume (Bld) [Entitic vol] 11.1 fL Normal 8.1-13.5 [facility] Comment on above: Performed By: #### H EPXA, PTT #### [address] [address] [employer] Merchandiser: Rafa Prieto MD Platelets (Bld) [#/Vol] 212 10*3/uL Normal 138-453 [facility] Comment on above: Performed By: #### H EPXA, PTT #### [facility] [address] [place] [address] [employer] Merchandiser: Rafa Prieto MD RBC (Bld) [#/Vol] 4.84 10*6/uL Normal 4.21-5.77 [facility] Comment on above: Performed By: #### H EPXA, PTT #### [facility] [address] [place] [address] [employer] Merchandiser: Rafa Prieto MD WBC (Bld) [#/Vol] 8.0 10*3/uL Normal 3.5-11.3 [facility] Comment on above: Performed By: #### H EPXA, PTT #### [facility] [address] [place] [address] [employer] Merchandiser: Rafa Prieto MD Glucose (POC)on 01-02-2024 Glucose [Mass/Vol] 116 mg/dL High 74-100 [facility] Glucose,Whole Bloodon 2023 Glucose [Mass/Vol] 165 mg/dL High 75-110 [facility] Glucose [Mass/Vol] 209 mg/dL High 75-110 [facility] Glucose [Mass/Vol] 115 mg/dL High 75-110 [facility] Glucose [Mass/Vol] 78 mg/dL Normal 75-110 [facility] Heparin Anti-Xaon 01-02-2024 Heparin Anti-Xa 0.55 IU/L Normal [facility] Comment on above: Performed By: #### H EPXA, PTT #### [facility] [address] [place] [address] [employer] Merchandiser: Rafa Prieto MD Heparin Anti-Xa 0.63 IU/L Normal [facility] Comment on above: Performed By: #### H EPXA ####[facility] [address] [place] [address] Lab Director: Rafa Prieto MD APTTon 01-01-2024 aPTT Coag (Bld) [Time] 123.5 s Critically high 23.0-36.5 [facility] Comment on above: Result Comment: IV Heparin Therapy Range: 66.0-92.0 sec Performed By: #### H EPXA, PTT #### [employer] [address] [place] [phone] [employer] Merchandiser: Rafa Prieto MD aPTT Coag (Bld) [Time] 82.0 s High 23.0-36.5 [facility] Comment on above: Result Comment: IV Heparin Therapy Range: 66.0-92.0 sec Performed By: #### H EPXA, PTT #### [employer] [address] [place] [address] [employer] Merchandiser: Rafa Prieto MD aPTT Coag (Bld) [Time] 122.3 s Critically high 23.0-36.5 [facility] Comment on above: Result Comment: IV Heparin Therapy Range: 66.0-92.0 sec Performed By: #### T ROPI #### [facility] [address] [place] [address] [employer] Merchandiser: Rafa Prieto MD Basic Metab w/rfx MGon 01-01 Creatinine [Mass/Vol] 0.8 mg/dL Normal 0.7-1.2 [facility] Comment on above: Result Comment: ICTE MANSOOR SPECIMEN Performed By: #### B MPX, CDP, TROPI, MG ####[facility] [address] [place], [place] [id number] Lab Director: Rafa Prieto MD GFR/1.73 sq M.predicted among non-blacks MDRD (S/P/Bld) [Vol rate/Area] mL/min/{1.73_m2} Normal >60 [facility] Comment on above: Result Comment: These results [...] #### B MPX, CDP, TROPI, MG ####[facility] [address] [place], [place] [phone] Director: Rafa Prieto MD Potassium [Moles/Vol] 3.5 mmol/L Low 3.7-5.3 [facility] Comment on above: Performed By: #### B MPX, CDP, TROPI, MG ####[facility] [address] [place], [place] [address])[phone] Director: Rafa Prieto MD Anion gap [Moles/Vol] 13 mmol/L Normal 9-17 [facility] Comment on above: Performed By: #### B MPX, CDP, TROPI, MG ####[facility] [address] [place], [place] [phone] Director: Rafa Prieto MD Calcium [Mass/Vol] 8.3 mg/dL Low 8.6-10.4 [facility] Comment on above: Performed By: #### B MPX, CDP, TROPI, MG ####[facility] [address] [place], [place] [phone] Director: Rafa Prieto MD Chloride [Moles/Vol] 99 mmol/L Normal 98-107 [facility] Comment on above: Performed By: #### B MPX, CDP, TROPI, MG ####[facility] [address] [place], [place] [phone] Director: Rafa Prieto MD CO2 [Moles/Vol] 25 mmol/L Normal 20-31 [facility] Comment on above: Performed By: #### B MPX, CDP, TROPI, MG ####[facility] [address] [place] [address] [facility] Director: Rafa Prieto MD Glucose [Mass/Vol] 89 mg/dL Normal 70-99 [facility] Comment on above: Performed By: #### B MPX, CDP, TROPI, MG ####[facility] [address] [place] [address] Lab Director: Rafa Prieto MD Sodium [Moles/Vol] 137 mmol/L Normal 135-144 [facility] Comment on above: Performed By: #### B MPX, CDP, TROPI, MG ####[facility] [address] [place] [address] Lab Director: Rafa Prieto MD Urea nitrogen [Mass/Vol] 20 mg/dL Normal 6-20 [facility] Comment on above: Performed By: #### B MPX, CDP, TROPI, MG ####[facility] [address] [place] [address] Lab Director: Rafa Prieto MD Basic Metabolic Profon 01-01 Creatinine [Mass/Vol] 0.7 mg/dL Normal 0.7-1.2 [facility] Comment on above: Result Comment: ICTE MANSOOR SPECIMEN Performed By: #### T JOSEY #### [facility] [address] [place] [address] [employer] Merchandiser: Rafa Prieto MD GFR/1.73 sq M.predicted among non-blacks MDRD (S/P/Bld) [Vol rate/Area] mL/min/{1.73_m2} Normal >60 [facility] Comment on above: Result Comment: These results [...] renal tubular secretion. Performed By: #### T ROSEANNI #### [address] [address] [employer] Merchandiser: Rafa Prieto MD Anion gap [Moles/Vol] 12 mmol/L Normal 9-17 [facility] Comment on above: Performed By: #### T ROPI #### [address] [address] [employer] Merchandiser: Rafa Prieto MD Calcium [Mass/Vol] 8.3 mg/dL Low 8.6-10.4 [facility] Comment on above: Performed By: #### T ROPI #### [address] [address] [employer] Merchandiser: Rafa Prieto MD Chloride [Moles/Vol] 98 mmol/L Normal 98-107 [facility] Comment on above: Performed By: #### T ROPI #### [address] [address] [employer] Merchandiser: Rafa Prieto MD CO2 [Moles/Vol] 25 mmol/L Normal 20-31 [facility] Comment on above: Performed By: #### T ROPI #### [address] [address] [employer] Merchandiser: Rafa Prieto MD Glucose [Mass/Vol] 125 mg/dL High 70-99 [facility] Comment on above: Performed By: #### T ROPI #### [address] [address] [employer] Merchandiser: Rafa Prieto MD Potassium [Moles/Vol] 3.6 mmol/L Low 3.7-5.3 [facility] Comment on above: Performed By: #### T ROPI #### [address] [address] [employer] Merchandiser: Rafa Prieto MD Sodium [Moles/Vol] 135 mmol/L Normal 135-144 [facility] Comment on above: Performed By: #### T ROSEANNI #### [facility] [place] [address] [employer] Merchandiser: Rafa Prieto MD Urea nitrogen [Mass/Vol] 22 mg/dL High 6-20 [facility] Comment on above: Performed By: #### T ROSEANNI #### [facility] [address] [place] [address] [employer] Merchandiser: Rafa Prieto MD Brain Natri. Peptideon 01-01 Natriuretic peptide B (Bld) [Mass/Vol] 2437 pg/mL High <300 [facility] Comment on above: Result Comment: An age-independent cutoff point of 300 pg/ml has a 98% negative predictive value excluding acute heart failure. Performed By: #### T JOSEY #### [facility] [address] [place] [address] [employer] Merchandiser: Rafa Prieto MD CBC with Diffon 01-01-2024 Abs. Basophil 0.00 k/uL Normal 0.00-0.20 [facility] Comment on above: Performed By: #### B MPX, CDP, TROPI, MG ####[facility] [address] [place], [place] [address])[phone] Director: Rafa Prieto MD Abs.Imm.Granulocyte 0.00 k/uL Normal 0.00-0.30 [facility] Comment on above: Performed By: #### B MPX, CDP, TROPI, MG ####[facility] [address] [place], [place] [phone] Director: Rafa Prieto MD Abs.Neutrophil (Seg) 4.00 k/uL Normal 1.50-8.10 [facility] Comment on above: Performed By: #### B MPX, CDP, TROPI, MG ####[facility] [address] [place] [address] Lab Director: Rafa Prieto MD Basophils/100 WBC (Bld) 0 % Normal 0-2 [facility] Comment on above: Performed By: #### B MPX, CDP, TROPI, MG ####[facility] [address] [place] [address] Lab Director: Rafa Prieto MD Eosinophils (Bld) [#/Vol] 0.00 10*3/uL Normal 0.00-0.44 [facility] Comment on above: Performed By: #### B MPX, CDP, TROPI, MG ####[facility] [address] [place] [address] Lab Director: Rafa Prieto MD Eosinophils/100 WBC (Bld) 0 % Low 1-4 [facility] Comment on above: Performed By: #### B MPX, CDP, TROPI, MG ####[facility] [address] [place], [place] [address])[phone] Director: Rafa Prieto MD Immature granulocytes/100 WBC (Bld) 0 % Normal 0 [facility] Comment on above: Performed By: #### B MPX, CDP, TROPI, MG ####[facility] [address] [place] [address] Lab Director: Rafa Prieto MD Lymphocytes (Bld) [#/Vol] 1.70 10*3/uL Normal 1.10-3.70 [facility] Comment on above: Performed By: #### B MPX, CDP, TROPI, MG ####[facility] [address] [place] [address] Lab Director: Rafa Prieto MD Lymphocytes/100 WBC (Bld) 23 % Low 24-43 [facility] Comment on above: Performed By: #### B MPX, CDP, TROPI, MG ####[facility] [address] [place], [place] [address])[phone] Director: Rafa Prieto MD Monocytes (Bld) [#/Vol] 1.70 10*3/uL High 0.10-1.20 [facility] Comment on above: Performed By: #### B MPX, CDP, TROPI, MG ####[facility] [address] [place] [address] Lab Director: Rafa Prieto MD Monocytes/100 WBC (Bld) 23 % High 3-12 [facility] Comment on above: Performed By: #### B MPX, CDP, TROPI, MG ####[facility] [address] [place] [address] Lab Director: Rafa Prieto MD Morphology Rancho (Bld) [Interp] ANISOCYTOSIS PRESENT Normal [facility] Comment on above: Result Comment: MICR OCYTOSIS PRESENT Performed By: #### B MPX, CDP, TROPI, MG ####[facility] [address] [place] [address] Lab Director: Rafa Prieto MD Neutrophil (Seg) 54 % Normal 36-65 [facility] Comment on above: Performed By: #### B MPX, CDP, TROPI, MG ####[facility] [address] [place] [address] Lab Director: Rafa Prieto MD Erythrocyte distribution width (RBC) [Ratio] 15.8 % High 11.8-14.4 [facility] Comment on above: Performed By: #### B MPX, CDP, TROPI, MG ####[facility] [address] [place] [address] Lab Director: Rafa Prieto MD Hematocrit (Bld) [Volume fraction] 40.9 % Normal 40.7-50.3 [facility] Comment on above: Performed By: #### B MPX, CDP, TROPI, MG ####[facility] [address] [place], [place] [phone] lab Director: Rafa Prieto MD Hemoglobin (Bld) [Mass/Vol] 12.3 g/dL Low 13.0-17.0 [facility] Comment on above: Performed By: #### B MPX, CDP, TROPI, MG ####[facility] [address] [place] [address] Lab Director: Rafa Prieto MD MCH (RBC) [Entitic mass] 24.2 pg Low 25.2-33.5 [facility] Comment on above: Performed By: #### B MPX, CDP, TROPI, MG ####[facility] [address] [place] [address] lab Director: Rafa Prieto MD MCHC (RBC) [Mass/Vol] 30.1 g/dL Normal 28.4-34.8 [facility] Comment on above: Performed By: #### B MPX, CDP, TROPI, MG ####[facility] [address] [place] [address] lab Director: Rafa Prieto MD MCV (RBC) [Entitic vol] 80.5 fL Low 82.6-102.9 [facility] Comment on above: Performed By: #### B MPX, CDP, TROPI, MG ####[facility] [address] [place] [address] Lab Director: Rafa Prieto MD NRBC Automated 0.0 per 100 WBC Normal 0.0 [facility] Comment on above: Performed By: #### B MPX, CDP, TROPI, MG ####[facility] [address]rar[address] [place] [address] Lab Director: Rafa Prieto MD Platelet mean volume (Bld) [Entitic vol] 11.0 fL Normal 8.1-13.5 [facility] Comment on above: Performed By: #### B MPX, CDP, TROPI, MG ####[facility] [address] [place], [place] [phone] Director: Rafa Prieto MD Platelets (Bld) [#/Vol] 246 10*3/uL Normal 138-453 [facility] Comment on above: Performed By: #### B MPX, CDP, TROPI, MG ####[facility] [address] [place], [place] [phone] Director: Rafa Prieto MD RBC (Bld) [#/Vol] 5.08 10*6/uL Normal 4.21-5.77 [facility] Comment on above: Performed By: #### B MPX, CDP, TROPI, MG ####[facility] [address] [place], [place] [phone] Director: Rafa Prieto MD WBC (Bld) [#/Vol] 7.4 10*3/uL Normal 3.5-11.3 [facility] Comment on above: Performed By: #### B MPX, CDP, TROPI, MG ####[facility] [address] [place] [address] Lab Director: Rafa Prieto MD Abs. Basophil 0.00 k/uL Normal 0.0-0.2 [facility] Comment on above: Performed By: #### T ROPI #### [address] [address] [employer] Merchandiser: Rafa Prieto MD Abs.Imm.Granulocyte 0.00 k/uL Normal 0.00-0.30 [facility] Comment on above: Performed By: #### T ROPI #### [facility] [address] [place] [address] [employer] Merchandiser: Rafa Prieto MD Abs.Neutrophil (Seg) 5.76 k/uL Normal 1.8-7.7 [facility] Comment on above: Performed By: #### T ROPI #### [address] [address] [employer] Merchandiser: Rafa Prieto MD Basophils/100 WBC (Bld) 0 % Normal 0-2 [facility] Comment on above: Performed By: #### T ROPI #### [address] [address] [employer] Merchandiser: Rafa Prieto MD Eosinophils (Bld) [#/Vol] 0.00 10*3/uL Normal 0.0-0.4 [facility] Comment on above: Performed By: #### T ROPI #### [address] [address] [employer] Merchandiser: Rafa Prieto MD Eosinophils/100 WBC (Bld) 0 % Low 1-4 [facility] Comment on above: Performed By: #### T ROPI #### [address] [address] [employer] Merchandiser: Rafa Prieto MD Immature granulocytes/100 WBC (Bld) 0 % Normal 0 [facility] Comment on above: Performed By: #### T ROPI #### [address] [address] [employer] Merchandiser: Rafa Prieto MD Lymphocytes (Bld) [#/Vol] 1.28 10*3/uL Normal 1.0-4.8 [facility] Comment on above: Performed By: #### T ROPI #### [address] [address] [employer] Merchandiser: Rafa Prieto MD Lymphocytes/100 WBC (Bld) 16 % Low 24-44 [facility] Comment on above: Performed By: #### T ROPI #### [address] [address] [employer] Merchandiser: Rafa Prieto MD Monocytes (Bld) [#/Vol] 0.96 10*3/uL High 0.1-0.8 [facility] Comment on above: Performed By: #### T ROPI #### [address] [address] [employer] Merchandiser: Rafa Prieto MD Monocytes/100 WBC (Bld) 12 % High 1-7 [facility] Comment on above: Performed By: #### T ROPI #### [address] [address] [employer] Merchandiser: Rafa Prieto MD Morphology Rancho (Bld) [Interp] ANISOCYTOSIS PRESENT Normal [facility] Comment on above: Result Comment: MICR OCYTOSIS PRESENT Performed By: #### T ROPI #### [address] [address] [employer] Merchandiser: Rafa Prieto MD Neutrophil (Seg) 72 % High 36-66 [facility] Comment on above: Performed By: #### T ROPI #### [address] [address] [employer] Merchandiser: Rafa Prieto MD Nucleated RBC'S 1 per 100 WBC High 0 [facility] Comment on above: Performed By: #### T ROPI #### [address] [address] [employer] Merchandiser: Rafa Prieto MD Erythrocyte distribution width (RBC) [Ratio] 15.9 % High 11.8-14.4 [facility] Comment on above: Performed By: #### T ROPI #### [address] [address] [employer] Merchandiser: Rafa Prieto MD Hematocrit (Bld) [Volume fraction] 41.5 % Normal 40.7-50.3 [facility] Comment on above: Performed By: #### T ROPI #### [address] [phone] [employer] Merchandiser: Rafa Prieto MD Hemoglobin (Bld) [Mass/Vol] 12.7 g/dL Low 13.0-17.0 [facility] Comment on above: Performed By: #### T ROPI #### [address] [address] [employer] Merchandiser: Rafa Prieto MD MCH (RBC) [Entitic mass] 24.3 pg Low 25.2-33.5 [facility] Comment on above: Performed By: #### T ROPI #### [address] [address] [employer] Merchandiser: Rafa Prieto MD MCHC (RBC) [Mass/Vol] 30.6 g/dL Normal 28.4-34.8 [facility] Comment on above: Performed By: #### T ROPI #### [address] [address] [employer] Merchandiser: Rafa Prieto MD MCV (RBC) [Entitic vol] 79.5 fL Low 82.6-102.9 [facility] Comment on above: Performed By: #### T ROPI #### [address] [address] [employer] Merchandiser: Rafa Prieto MD NRBC Automated 0.3 per 100 WBC High 0.0 [facility] Comment on above: Performed By: #### T ROPI #### [address] [address] [employer] Merchandiser: Rafa Prieto MD Platelet mean volume (Bld) [Entitic vol] 10.9 fL Normal 8.1-13.5 [facility] Comment on above: Performed By: #### T ROPI #### [address] [address] [employer] Merchandiser: Rafa Prieto MD Platelets (Bld) [#/Vol] 265 10*3/uL Normal 138-453 [facility] Comment on above: Performed By: #### T ROPI #### [facility] [place] [address] [employer] Merchandiser: Rafa Prieto MD RBC (Bld) [#/Vol] 5.22 10*6/uL Normal 4.21-5.77 [facility] Comment on above: Performed By: #### T ROPI #### [facility] [place] [address] [employer] Merchandiser: Rafa Prieto MD WBC (Bld) [#/Vol] 8.0 10*3/uL Normal 3.5-11.3 [facility] Comment on above: Performed By: #### T ROPI #### [address] [address] [employer] Merchandiser: Rafa Prieto MD Glucose,Whole Bloodon 2023 Glucose [Mass/Vol] 72 mg/dL Low 75-110 [facility] Glucose [Mass/Vol] 60 mg/dL Low 75-110 [facility] Glucose [Mass/Vol] 44 mg/dL Low -110 [facility] Comment on above: Result Comment: Alesia icaonofre Noted Glucose [Mass/Vol] 91 mg/dL Normal 75-110 [facility] Glucose [Mass/Vol] 66 mg/dL Low 75-110 [facility] Glucose [Mass/Vol] 42 mg/dL Low -110 [facility] Comment on above: Result Comment: Crit ical Noted Glucose [Mass/Vol] 124 mg/dL High 75-110 [facility] Heparin Anti-Xaon 01-01-2024 Heparin Anti-Xa 0.97 IU/L Normal [facility] Comment on above: Performed By: #### H EPXA #### [facility] [address] [place] [address] [employer] Merchandiser: Rafa Prieto MD Heparin Anti-Xa 0.40 IU/L Normal [facility] Comment on above: Performed By: #### H EPXA, PTT #### [facility] [address] [place] [address] [employer] Merchandiser: Rafa Prieto MD Heparin Anti-Xa 0.32 IU/L Normal [facility] Comment on above: Performed By: #### H EPXA, PTT #### [facility] [address] [place] [address] [employer] Merchandiser: Rafa Prieto MD Heparin Anti-Xa 0.29 IU/L Normal [facility] Comment on above: Performed By: #### T ROPI #### [address] [address] [employer] Merchandiser: Rafa Prieto MD MRSA, DNA, Nasalon MRSA, DNA, Nasal Negative Normal NEG [facility] Comment on above: Result Comment: NEGA TIVE: MRSA DNA not detected by nucleic acid amplification. Results should be used as an adjunct to nosocomial control efforts to identify patients needing enhanced precautions. The test is not intended to identify patients with staphylococcal infections. Results should not be used to guide or monitor treatment for MRSA infections. Performed By: #### M RSANO ####[facility] [address] [place] [address] [phone] Director: Rafa Prieto MD Specimen Description .NASAL SWAB Normal [facility] Comment on above: Performed By: #### M RSANO ####[facility] [address] [place] [address] Lab Director: Rafa Prieto MD Magnesiumon 01-01-2024 Magnesium [Mass/Vol] 1.7 mg/dL Normal 1.6-2.6 [facility] Comment on above: Performed By: #### B MPX, CDP, TROPI, MG ####[facility] [address] [place] [address] Lab Director: Rafa Prieto MD Troponinon 01-01-2024 Troponin, High Sens 103 ng/L Critically high 0-22 [facility] Comment on above: Result Comment: High Sensitivity Troponin values cannot be compared with other Troponin methodologies. Previous Alert Value Reported Performed By: #### B MPX, CDP, TROPI, MG ####[facility] [address] [place] [address] Lab Director: Rafa Prieto MD Troponin, High Sens 107 ng/L Critically high 0-22 [facility] Comment on above: Result Comment: High Sensitivity Troponin values cannot be compared with other Troponin methodologies. Previous Alert Value Reported Performed By: #### T ROPI ####[address] [phone] Director: Rafa Prieto MD Troponin, High Sens 107 ng/L Critically high 22 [facility] Comment on above: Result Comment: High Sensitivity Troponin values cannot be compared with other Troponin methodologies. Previous Alert Value Reported Performed By: #### T ROPI #### [facility] [place] [address] [employer] Merchandiser: Rafa Prieto MD Troponin, High Sens 104 ng/L Critically high 22 [facility] Comment on above: Result Comment: High Sensitivity Troponin values cannot be compared with other Troponin methodologies. Performed By: #### T ROPI #### [facility] [address] [place] [address] [employer] Merchandiser: Rafa Prieto MD Type + Screenon 01-01-2024 Type + Screen Sample Expiration 01/04/2024,2359 Arm Band Number [id number] ABO/Rh(D) A POSITIVE Antibody Screen NEGATIVE Normal [facility] Comment on above: Performed By: #### T YS ####[facility] [address] [place] [address] [phone] Director: Rafa Prieto MD Urinalysis, Routineon 2023 Bilirubin, SemiQt,Ur Negative Normal NEG [facility] Comment on above: Performed By: #### H EPXA, PTT #### [address] [address] [employer] Merchandiser: Rafa Prieto MD Blood, Urine LARGE Abnormal NEG [facility] Comment on above: Performed By: #### H EPXA, PTT #### [address] [address] [employer] Merchandiser: Rafa Prieto MD Clarity (U) Clear Normal CLEAR [facility] Comment on above: Performed By: #### H EPXA, PTT #### [address] [address] [employer] Merchandiser: Rafa Prieto MD Color (U) Dark Yellow Abnormal YEL [facility] Comment on above: Performed By: #### H EPXA, PTT #### [address] [address] [employer] Merchandiser: Rafa Prieto MD Glucose Ql (U) Negative Normal NEG [facility] Comment on above: Performed By: #### H EPXA, PTT #### [address] [address] [employer] Merchandiser: Rafa Prieto MD Ketones Ql (U) Negative Normal NEG [facility] Comment on above: Performed By: #### H EPXA, PTT #### [facility] [address] [place] [address] [employer] Merchandiser: Rafa Prieto MD Leukocyte esterase Test strip Ql (U) MODERATE Abnormal NEG [facility] Comment on above: Performed By: #### H EPXA, PTT #### [facility] [address] [place] [address] [employer] Merchandiser: Rafa Prieto MD Nitrite,Ur Negative Normal NEG [facility] Comment on above: Performed By: #### H EPXA, PTT #### [facility] [address] [place] [address] [employer] Merchandiser: Rafa Prieto MD PH,Ur 5.5 Normal 5.0-8.0 [facility] Comment on above: Performed By: #### H EPXA, PTT #### [address] [address] [employer] Merchandiser: Rafa Prieto MD Protein Ql (U) TRACE Abnormal NEG [facility] Comment on above: Performed By: #### H EPXA, PTT #### [address] [address] [employer] Merchandiser: Rafa Prieto MD Spec. [place],Ur 1.024 Normal 1.005-1.030 [facility] Comment on above: Performed By: #### H EPXA, PTT #### [address] [address] [employer] Merchandiser: Rafa Prieto MD Urobilinogen,Ur ELEVATED Normal 0.0-1.0 [facility] Comment on above: Performed By: #### H EPXA, PTT #### [address] [address] [employer] Merchandiser: Rafa Prieto MD Urinalysis,Microon 4 Epithelial cells LM Ql (Urine sed) 5 TO 10 Normal 0-5 [facility] Comment on above: Performed By: #### H EPXA, PTT #### [facility] [address] [place] [address] [employer] Merchandiser: Rafa Prieto MD Urine RBC's TOO NUMEROUS TO COUNT Normal 0-2 [facility] Comment on above: Performed By: #### H EPXA, PTT #### [facility] [address] [place] [address] [employer] Merchandiser: Rafa Prieto MD Urine WBC's 10 TO 20 Normal 0-5 [facility] Comment on above: Performed By: #### H EPXA, PTT #### [place] [id number] [place] [phone] [employer] Merchandiser: Rafa Prieto MD DENNY Antinuclear Antibodieson 08-09-2023 Antinuclear Abs, IFA Negative Normal . [facility] Comment on above: Result Comment: Nega tive <1:80 Borderline 1:80 Positive >1:80 ICAP nomenclature: AC-0 For more information about Hep-2 cell patterns use ANApatterns.org, the official website for the International Consensus on Antinuclear Antibody (DENNY) Patterns (ICAP). Performed at: - [facility] [id number] [employer] Merchandiser: Lester Nunez PhD, Phone: [phone] Performed By: #### A NA, [id number] #### [facility] , #### T4F, CRP, CK, CMP, ESR, CBC, TSH3 #### [facility] [address] [place] [address] C-Reactive Proteinon 023 C-Reactive Protein 0.5 mg/dL Normal 0.0-0.5 [facility] Comment on above: Performed By: #### A NA, [id number] #### [facility] , #### T4F, CRP, CK, CMP, ESR, CBC, TSH3 #### [facility] [address] [place] [address] Complete Blood Count Auto Di ffon 08-09-2023 Basophils (Bld) [#/Vol] 0.0 10*3/uL Normal 0.0-0.2 [facility] Comment on above: Performed By: #### A NA, [id number] #### [facility] , #### T4F, CRP, CK, CMP, ESR, CBC, TSH3 #### [facility] [address] [place] [address] [place] Basophils/100 WBC (Bld) 0.6 % Normal . [facility] Comment on above: Performed By: #### A NA, [id number] #### [facility] , #### T4F, CRP, CK, CMP, ESR, CBC, TSH3 #### [address] Eosinophils (Bld) [#/Vol] 0.1 10*3/uL Normal 0.0-0.45 [facility] Comment on above: Performed By: #### A NA, [id number] #### [facility] , #### T4F, CRP, CK, CMP, ESR, CBC, TSH3 #### [address] Eosinophils/100 WBC (Bld) 1.4 % Normal . [facility] Comment on above: Performed By: #### A NA, HLAB27 #### [facility] , #### T4F, CRP, CK, CMP, ESR, CBC, TSH3 #### [address] Erythrocyte distribution width (RBC) [Ratio] 13.1 % Normal 12.0-14.8 [facility] Comment on above: Performed By: #### A NA, HLAB27 #### [facility] , #### T4F, CRP, CK, CMP, ESR, CBC, TSH3 #### [address] Hematocrit (Bld) [Volume fraction] 43.8 % Normal 38.8-50.0 [facility] Comment on above: Performed By: #### A NA, HLAB27 #### [facility] , #### T4F, CRP, CK, CMP, ESR, CBC, TSH3 #### [address] Hemoglobin (Bld) [Mass/Vol] 14.4 g/dL Normal 13.0-17.0 [facility] Comment on above: Performed By: #### A NA, HLAB27 #### [facility] , #### T4F, CRP, CK, CMP, ESR, CBC, TSH3 #### [address] Lymphocytes (Bld) [#/Vol] 1.7 10*3/uL Normal 1.00-4.8 [facility] Comment on above: Performed By: #### A NA, HLAB27 #### [facility] , #### T4F, CRP, CK, CMP, ESR, CBC, TSH3 #### [address] Lymphocytes/100 WBC (Bld) 24.1 % Normal . [facility] Comment on above: Performed By: #### A NA, HLAB27 #### [facility] , #### T4F, CRP, CK, CMP, ESR, CBC, TSH3 #### [address] MCH (RBC) [Entitic mass] 27.6 pg Normal 27.5-35.2 [facility] Comment on above: Performed By: #### A NA, HLAB27 #### [facility] , #### T4F, CRP, CK, CMP, ESR, CBC, TSH3 #### [address] MCV (RBC) [Entitic vol] 84.1 fL Normal 83.5-101 [facility] Comment on above: Performed By: #### A NA, HLAB27 #### [facility] , #### T4F, CRP, CK, CMP, ESR, CBC, TSH3 #### [address] Mean Corpuscular HGB Conc 32.8 g/dL Normal 32.5-35.6 [facility] Comment on above: Performed By: #### A NA, HLAB27 #### [facility] , #### T4F, CRP, CK, CMP, ESR, CBC, TSH3 #### [place] [address] [place] Monocytes (Bld) [#/Vol] 0.4 10*3/uL Normal 0.0-0.8 [facility] Comment on above: Performed By: #### A NA, HLAB27 #### [facility] , #### T4F, CRP, CK, CMP, ESR, CBC, TSH3 #### [address] Monocytes/100 WBC (Bld) 5.9 % Normal . [facility] Comment on above: Performed By: #### A NA, HLAB27 #### [facility] , #### T4F, CRP, CK, CMP, ESR, CBC, TSH3 #### [place] [address] [place] Neutrophils (Bld) [#/Vol] 4.9 10*3/uL Normal 1.8-7.7 [facility] Comment on above: Performed By: #### A NA, HLAB27 #### [facility] , #### T4F, CRP, CK, CMP, ESR, CBC, TSH3 #### [address] Neutrophils/100 WBC (Bld) 68.0 % Normal . [facility] Comment on above: Performed By: #### A NA, HLAB27 #### [facility] , #### T4F, CRP, CK, CMP, ESR, CBC, TSH3 #### [place] [address] [place] NRBC% 0.2 /100{WBC} Normal 0-0.5 [facility] Comment on above: Performed By: #### A NA, HLAB27 #### [facility] , #### T4F, CRP, CK, CMP, ESR, CBC, TSH3 #### [address] Platelet mean volume (Bld) [Entitic vol] 10.9 fL High 6.6-10.1 [facility] Comment on above: Performed By: #### A NA, HLAB27 #### [facility] , #### T4F, CRP, CK, CMP, ESR, CBC, TSH3 #### [address] Platelets (Bld) [#/Vol] 216 10*3/uL Normal 150-450 [facility] Comment on above: Performed By: #### A NA, HLAB27 #### [facility] , #### T4F, CRP, CK, CMP, ESR, CBC, TSH3 #### [address] RBC (Bld) [#/Vol] 5.20 10*6/uL Normal 3.90-5.60 [facility] Comment on above: Performed By: #### A NA, HLAB27 #### [facility] , #### T4F, CRP, CK, CMP, ESR, CBC, TSH3 #### [address] WBC (Bld) [#/Vol] 7.1 10*3/uL Normal 4.1-10.5 [facility] Comment on above: Performed By: #### A NA, HLAB27 #### [facility] , #### T4F, CRP, CK, CMP, ESR, CBC, TSH3 #### [address] Comprehensive Metabolic Pane chery 08-09-2023 Albumin [Mass/Vol] 4.6 g/dL Normal 3.5-5.7 [facility] Comment on above: Performed By: #### A NA, HLAB27 #### [facility] , #### T4F, CRP, CK, CMP, ESR, CBC, TSH3 #### [address] Albumin/Globulin [Mass ratio] 1.3 {ratio} Normal [facility] Comment on above: Performed By: #### A NA, HLAB27 #### [facility] , #### T4F, CRP, CK, CMP, ESR, CBC, TSH3 #### [address] ALP [Catalytic activity/Vol] 44 U/L Normal 34-104 [facility] Comment on above: Performed By: #### A NA, HLAB27 #### [facility] , #### T4F, CRP, CK, CMP, ESR, CBC, TSH3 #### [address] ALT [Catalytic activity/Vol] 50 U/L Normal 7-52 [facility] Comment on above: Performed By: #### A NA, HLAB27 #### [facility] , #### T4F, CRP, CK, CMP, ESR, CBC, TSH3 #### [address] Anion gap [Moles/Vol] 14.9 mmol/L Normal 6.0-15.0 [facility] Comment on above: Performed By: #### A NA, HLAB27 #### [facility] , #### T4F, CRP, CK, CMP, ESR, CBC, TSH3 #### [address] AST [Catalytic activity/Vol] 33 U/L Normal 13-39 [facility] Comment on above: Performed By: #### A NA, HLAB27 #### [facility] , #### T4F, CRP, CK, CMP, ESR, CBC, TSH3 #### [address] Bilirubin [Mass/Vol] 0.4 mg/dL Normal 0.3-1.0 [facility] Comment on above: Performed By: #### A NA, HLAB27 #### [facility] , #### T4F, CRP, CK, CMP, ESR, CBC, TSH3 #### [facility] [address] Calcium [Mass/Vol] 10.2 mg/dL Normal 8.6-10.3 [facility] Comment on above: Performed By: #### A NA, HLAB27 #### [facility] , #### T4F, CRP, CK, CMP, ESR, CBC, TSH3 #### [facility] [address] [place] [address] Chloride [Moles/Vol] 97 mmol/L Low 98-107 [facility] Comment on above: Performed By: #### A NA, HLAB27 #### [facility] , #### T4F, CRP, CK, CMP, ESR, CBC, TSH3 #### [facility] [address] [place] [address] [place] CO2 [Moles/Vol] 29.7 mmol/L Normal 21.0-31.0 [facility] Comment on above: Performed By: #### A NA, HLAB27 #### [facility] , #### T4F, CRP, CK, CMP, ESR, CBC, TSH3 #### [facility] [address] [place] [address] [place] Creatinine [Mass/Vol] 0.80 mg/dL Normal 0.70-1.30 [facility] Comment on above: Performed By: #### A NA, HLAB27 #### [facility] , #### T4F, CRP, CK, CMP, ESR, CBC, TSH3 #### [place] [address] [place] GFR/1.73 sq M.predicted MDRD (S/P/Bld) [Vol rate/Area] mL/min/{1.73_m2} Normal [facility] Comment on above: Performed By: #### A NA, [id number] #### [facility] , #### T4F, CRP, CK, CMP, ESR, CBC, TSH3 #### [facility] [address] [place] [address] Globulin (S) [Mass/Vol] 3.5 g/dL Normal [facility] Comment on above: Performed By: #### A NA, [id number] #### [facility] , #### T4F, CRP, CK, CMP, ESR, CBC, TSH3 #### [address] Glucose [Mass/Vol] 157 mg/dL High 70-100 [facility] Comment on above: Result Comment: [facility] Glucose Reference Range is dependent on time and content of last meal. Glucose of more than 200 mg/dL in a nonstressed, ambulatory subject supports the diagnosis of Diabetes Mellitus. ADA recommended reference range Performed By: #### A NA, [id number] #### [facility] , #### T4F, CRP, CK, CMP, ESR, CBC, TSH3 #### [address] Potassium [Moles/Vol] 4.6 mmol/L Normal 3.5-5.1 [facility] Comment on above: Performed By: #### A NA, [id number] #### [facility] , #### T4F, CRP, CK, CMP, ESR, CBC, TSH3 #### [address] Protein [Mass/Vol] 8.1 g/dL Normal 6.4-8.9 [facility] Comment on above: Performed By: #### A NA, [id number] #### [facility] , #### T4F, CRP, CK, CMP, ESR, CBC, TSH3 #### [address] [place] [address] [place] Sodium [Moles/Vol] 137 mmol/L Normal 136-145 [facility] Comment on above: Performed By: #### A NA, [id number] #### [facility] , #### T4F, CRP, CK, CMP, ESR, CBC, TSH3 #### [address] Urea nitrogen [Mass/Vol] 10 mg/dL Normal 7-25 [facility] Comment on above: Performed By: #### A NA, [id number] #### [facility] , #### T4F, CRP, CK, CMP, ESR, CBC, TSH3 #### [address] Creatine Kinaseon 08-09-2023 CK [Catalytic activity/Vol] 95 U/L Normal 30-223 [facility] Comment on above: Result Comment: PERF ORMED BY: [place] [address] PATHOLOGIST STRIPPER MACHINE OPERATOR JOSEPH SAUCEDA M.D. Performed By: #### A NA, [id number] #### [facility] , #### T4F, CRP, CK, CMP, ESR, CBC, TSH3 #### [address] Erythrocyte Sedimentation Ra baldo 08-09-2023 ESR (Bld) [Velocity] 30 mm/h High 0-19 [facility] Comment on above: Result Comment: PERF ORMED BY: [place] [address] PATHOLOGIST STRIPPER MACHINE OPERATOR JOSEPH SAUCEDA M.D. Performed By: #### A NA, [id number] #### [facility] , #### T4F, CRP, CK, CMP, ESR, CBC, TSH3 #### [address] Free T4 (Free Thyroxine)on 1 Free T4 [Mass/Vol] 0.87 ng/dL Normal 0.61-1.12 [facility] Comment on above: Performed By: #### A NA, [id number] #### [facility] , #### T4F, CRP, CK, CMP, ESR, CBC, TSH3 #### [facility] [address] HLA B27 Disease Associationo n 08-09-2023 [...] developed and its performance characteristics determined by [employer]. It has not been cleared or approved by the Food and Drug Administration. [facility] CLIA ID Number [id number] THis test was performed using Polymerase Chain Reaction (PCR) and Sequence Specific Oligonucleotide Probes (SSOP) technique. Sequence Based Typing (SBT) may be used as a supplemental method when necessary. If you have questions, please call [facility] customer service at or email at [email or web address]. Performed at: [facility] [id number] [employer] Field Merchandiser: Minerva Pearce PhD, Phone: [phone] PERFORMED BY: [place] [address] PATHOLOGIST STRIPPER MACHINE OPERATOR JOSEPH SAUCEDA M.D. Performed By: #### A NA, [id number] #### [facility] , #### T4F, CRP, CK, CMP, ESR, CBC, TSH3 #### [facility] [address] [place] [address] Thyroid Stimulating Hormoneo n 08-09-2023 TSH Qn 2.42 m[IU]/L Normal 0.45-5.33 [facility] Comment on above: Result Comment: PERF ORMED BY: [place] [address] PATHOLOGIST STRIPPER MACHINE OPERATOR JOSEPH SAUCEDA M.D. Performed By: #### A NA, [id number] #### [facility] , #### T4F, CRP, CK, CMP, ESR, CBC, TSH3 #### [address] XR thoracic spine 3V*on XR thoracic spine 3V* [facility] [place] [address] [place] [address] XRay Report Signed Patient: Vitaly Dobson MR#: [id number] : 1970 Acct:[id number] Age/Sex: 52 / M ADM Date: 08/09/23 Loc: ICXD Room: Type: [facility] Attending Dr: Edi Henriquez MD Copies to: Edi Henriquez MD Ordering Provider: Edi Henriquez MD Date of Service: 08/09/23 XR/XR lumbar spine 2-3V*: LOW BACK PAIN ([id number]) XR/XR thoracic spine 3V*: DISH VS ANKYLOSING SPONDYLITIS ([id number]) XR/XR si joints: LOW BACK PAIN CLINICAL [...] Vee Amanda M.D.08/09/2023 4:34 PM Dictation Location: [place] [address] Transcribed By: [facility] 08/09/23 163 Dictated By: Vee Amanda MD 08/09/23 1608 Signed By: 08/09/23 1634 [facility] XR cervical spine 2-3Von XR cervical spine 2-3V [facility] [employer] Other XR cervical spine 2-3V [address] [facility] [employer] Other XR cervical spine 2-3[place] [address] [employer] Other XR cervical spine 2-3V XRay Report [employer] Other XR cervical spine 2-3V Signed [employer] Other XR cervical spine 2-3V Patient: VITALY DOBSON MR#: [id number] [employer] Other XR cervical spine 2-3V : 1970 Acct:[id number] [employer] Other XR cervical spine 2-3V Age/Sex: 52 / M ADM Date: 07/28/23 [employer] Other XR cervical spine 2-3V Loc: LAB [facility] Other XR cervical spine 2-3V Attending Dr: Semaj Avery D.O. [employer] Other XR cervical spine 2-3V Ordering Physician: Semaj Avery D.O. [employer] Other XR cervical spine 2-3V Date of Service: 07/28/23 [employer] Other XR cervical spine 2-3V Accession Number(s): [id number] [employer] Other XR cervical spine 2-3V cc: Semaj Avery D.O. [employer] Other XR cervical spine 2-3V [address] [facility] [employer] Other XR cervical spine 2-3V [place] [address] [employer] Other XR cervical spine 2-3V [employer] Other XR cervical spine 2-3V Patient Name: [employer] Other XR cervical spine 2-3V VITALY DOBSON [employer] Other XR cervical spine 2-3V MRN: [facility]:[id number] date: 1970 Sex: M [employer] Other XR cervical spine 2-3V Assigned Patient Location: [facility] [employer] Other XR cervical spine 2-3V Current Patient Location: [facility] [employer] Other XR cervical spine 2-3V Accession/Order Number: [id number] [employer] Other XR cervical spine 2-3V Exam Date: 07/28/2023 11:15 Report Date: 07/28/2023 12:14 [employer] Other XR cervical spine 2-3V At the request of: [employer] Other XR cervical spine 2-3V SEMAJ AVERY [employer] Other XR cervical spine 2-3V EXAMINATION: XR cervical spine 2-3V, XR lumbar spine 2-3V, XR thoracic spine [employer] Other XR cervical spine 2-3V 2V [employer] Other XR cervical spine 2-3V HISTORY: Scoliosis M41.20, Cervical Spondylosis M47.812 [employer] Other XR cervical spine 2-3V COMPARISON: No relevant comparison available. [employer] Other XR cervical spine 2-3V FINDINGS: [employer] Other XR cervical spine 2-3V BONES: Cervical spine demonstrates marked left convex curvature and mild [employer] Other XR cervical spine 2-3V reversal of normal lordotic curvature. Suspect degenerative changes versus [employer] Other XR cervical spine 2-3V osseous bridging of the facet joints at most levels. No appreciable fracture [employer] Other XR cervical spine 2-3V or [employer] Other XR cervical spine 2-3V spondylolisthesis [employer] Other XR cervical spine 2-3V Thoracic spine demonstrates moderate left convex curvature and exaggerated [employer] Other XR cervical spine 2-3V kyphosis. No appreciable fracture or spondylolisthesis. [employer] Other XR cervical spine 2-3V Lumbar spine demonstrates mild curvature at the thoracolumbar junction. [employer] Other XR cervical spine 2-3V Straightening of the normal lordotic curvature, and multilevel marked [employer] Other XR cervical spine 2-3V degenerative facet arthropathy. Bone encroachment on the L4-5 and L5-S1 neural [employer] Other XR cervical spine 2-3V foramen. [employer] Other XR cervical spine 2-3V DISC SPACES: Calcification of the interspinous ligaments throughout. Cervical [employer] Other XR cervical spine 2-3V spine multilevel mild disc space narrowing. Thoracic spine multilevel mild [employer] Other XR cervical spine 2-3V disc [employer] Other XR cervical spine 2-3V space narrowing. Lumbar spine and multilevel mild-moderate disc space [employer] Other XR cervical spine 2-3V narrowing. [employer] Other XR cervical spine 2-3V PARASPINOUS: No paraspinous abnormality is seen. [employer] Other XR cervical spine 2-3V Negative [employer] Other XR cervical spine 2-3V XR/XR cervical spine 2-3V [employer] Other XR cervical spine 2-3V IMPRESSION: [employer] Other XR cervical spine 2-3V 1. Limited examination due to patient needing to be imaged in the standing [employer] Other XR cervical spine 2-3V position. [employer] Other XR cervical spine 2-3V 2. Multilevel scoliotic curvature of the cervical and thoracic spine. [employer] Other XR cervical spine 2-3V 3. Thoracic kyphosis. [facility] Other XR cervical spine 2-3V 4. Findings favor diffuse ankylosing spondylitis throughout the cervical, [employer] Other XR cervical spine 2-3V thoracic, lumbar spine. [employer] Other XR cervical spine 2-3V 5. Multilevel mild degenerative disc disease. [employer] Other XR cervical spine 2-3V 6. Marked degenerative facet arthropathy of lumbar spine. [employer] Other XR cervical spine 2-3V Electronically authenticated by: DAMI GOMEZ Date: 07/28/2023 12:14 [employer] Other XR cervical spine 2-3V Dictated By: Dami Gomez M.D. [employer] Other XR cervical spine 2-3V Signed By: 07/28/23 1217 [employer] Other XR cervical spine 2-3V DD/ 1214 [employer] Other XR cervical spine 2-3V TD/TT: Leather [employer]er: [employer] Other XR lumbar spine 2-3Von 07-28 XR lumbar spine 2-3V Accession Number(s): [id number] [employer] Other XR lumbar spine 2-3V Accession/Order Number: [id number] [employer] Other XR lumbar spine 2-3V XR/XR lumbar spine 2-3V [employer] Other XR thoracic spine 2Von 07-28 XR thoracic spine 2V Accession Number(s): [id number] [employer] Other XR thoracic spine 2V Accession/Order Number: [id number] [employer] Other XR thoracic spine 2V XR/XR thoracic spine 2V [employer] Other LIPID PROFILE SEND OUTon Cholesterol [Mass/Vol] 259 mg/dL Critically high 100-199 [facility] Comment on above: Performed By: #### B MPLC, LIPIDLC #### [facility] [address] [place] [address] Dr. David Brown Cholesterol in HDL [Mass/Vol] 16 mg/dL Critically low >39 [facility] Comment on above: Performed By: #### B MPLC, LIPIDLC #### [facility] [address] [place] [address] Dr. David Brown Comment: Normal [facility] Comment on above: Performed By: #### B MPLC, LIPIDLC #### [facility] [address] [place] [address] Dr. David Brown LDL Chol. Calc. ([facility]) Comment Abnormal 0-99 [facility] Comment on above: Result Comment: Trig lyceride result indicated is too high for an accurate LDL cholesterol estimation. Performed By: #### B MPLC, LIPIDLC #### [facility] [address] [place] [address] Dr. David Brown Triglyceride [Mass/Vol] 2070 mg/dL Invalid Interpretation Code 0-149 [facility] Comment on above: Result Comment: Resu lts confirmed on dilution. Performed By: #### B MPLC, LIPIDLC #### [facility] [address] [place] [address] Dr. David Brown VLDL Cholesterol, Calc Comment Abnormal 5-40 [facility] Comment on above: Result Comment: The calculation for the VLDL cholesterol is not valid when triglyceride level is >800 mg/dL. Performed By: #### B MPLC, LIPIDLC #### [facility] [address] [place] [address] Dr. David Brown PROF CHEM 8 ([facility]) SEND OUTon 02-04-2023 Calcium [Mass/Vol] 10.0 mg/dL Normal 8.7-10.2 [facility] Comment on above: Performed By: #### B MPLC, LIPIDLC #### [facility] [address] [place] [address] Dr. David Brown Chloride [Moles/Vol] 91 mmol/L Critically low 96-106 [facility] Comment on above: Performed By: #### B MPLC, LIPIDLC #### [facility] [address] [place] [address] Dr. David Brown CO2 [Moles/Vol] 24 mmol/L Normal 20-29 [facility] Comment on above: Performed By: #### B MPLC, LIPIDLC #### [facility] [address] [place] [address] Dr. David Brown Creatinine [Mass/Vol] 1.00 mg/dL Normal 0.76-1.27 [facility] Comment on above: Performed By: #### B MPLC, LIPIDLC #### [facility] [address] [place] [address] [address] David Brown GFR/1.73 sq M.predicted among non-blacks MDRD (S/P/Bld) [Vol rate/Area] 90 mL/min/{1.73_m2} Normal >59 [facility] Comment on above: Performed By: #### B MPLC, LIPIDLC #### [facility] [address] [place] [address] [address] David Brown Glucose [Mass/Vol] 205 mg/dL Critically high 70-99 [facility] Comment on above: Performed By: #### B MPLC, LIPIDLC #### [facility] [address] [place] [address] Dr. David Brown Potassium [Moles/Vol] 4.7 mmol/L Normal 3.5-5.2 [facility] Comment on above: Performed By: #### B MPLC, LIPIDLC #### [facility] [address] [place] [address] [address] David Brown Sodium [Moles/Vol] 132 mmol/L Critically low 134-144 [facility] Comment on above: Performed By: #### B MPLC, LIPIDLC #### [facility] [address] [place] [address] [address] David Brown Urea nitrogen [Mass/Vol] 18 mg/dL Normal 6-24 [facility] Comment on above: Performed By: #### B MPLC, LIPIDLC #### [facility] [address] [place] [address] Dr. David Brown Urea nitrogen/Creatinine [Mass ratio] 18 mg/mg Normal 9-20 [facility] Comment on above: Performed By: #### B MPLC, LIPIDLC #### [facility] [address] [place] [address] Dr. David Brown CBC AUTO DIFFon 02-03-2023 BASO # 0.1 103/ul Normal 0.0-0.1 [facility] Comment on above: Performed By: #### C BC #### [facility] [address] [place] [address] [address] David Brown Basophils/100 WBC (Bld) 0.6 % Normal 0.2-2.0 [facility] Comment on above: Performed By: #### C BC #### [facility] [address] [place] [address] Dr. David Brown EO # 0.2 103/ul Normal 0.0-0.7 [facility] Comment on above: Performed By: #### C BC #### [facility] [address] [place] [address] Dr. David Brown Eosinophils/100 WBC (Bld) 2.2 % Normal 0.9-7.0 [facility] Comment on above: Performed By: #### C BC #### [facility] [address] [place] [address] Dr. David Brown Erythrocyte distribution width (RBC) [Ratio] 12.7 % Normal 11.0-15.0 [facility] Comment on above: Performed By: #### C BC #### [facility] [address] [place] [address] Dr. David Brown Hematocrit (Bld) [Volume fraction] 43.6 % Normal 42.0-54.0 [facility] Comment on above: Performed By: #### C BC #### [facility] [address] [place] [address] Dr. David Brown Hemoglobin (Bld) [Mass/Vol] 14.6 g/dL Normal 14.0-18.0 [facility] Comment on above: Performed By: #### C BC #### [facility] [address] [place] [address] Dr. David Brown IG # 0.03 10e3/ul Normal 0.00-0.03 [facility] Comment on above: Performed By: #### C BC #### [facility] [address] [place] [address] Dr. David Brown IG % 0.3 % Normal 0.0-0.5 [facility] Comment on above: Performed By: #### C BC #### [facility] [address] [place] [address] [address] David Brown LYMPH # 3.6 103/ul Normal 1.2-3.8 [facility] Comment on above: Performed By: #### C BC #### [facility] [address] [place] [address] Dr. David Brown Lymphocytes/100 WBC (Bld) 37.8 % Normal 20.5-60.0 [facility] Comment on above: Performed By: #### C BC #### [facility] [address] [place] [address] Dr. David Brown MANUAL DIFF REQ NO Normal [facility] Comment on above: Performed By: #### C BC #### [facility] [address] [place] [address] Dr. David Brown MCH (RBC) [Entitic mass] 28.3 pg Normal 25.9-34.0 [facility] Comment on above: Performed By: #### C BC #### [facility] [address] [place] [address] Dr. David Brown MCHC (RBC) [Mass/Vol] 33.5 g/dL Normal 29.9-35.2 [facility] Comment on above: Performed By: #### C BC #### [facility] [address] [place] [address] Dr. David Brown MCV (RBC) [Entitic vol] 84.7 fL Normal 80.0-94.0 [facility] Comment on above: Performed By: #### C BC #### [facility] [address] [place] [address] Dr. David Brown MONO # 0.9 103/ul Critically high 0.3-0.8 [facility] Comment on above: Performed By: #### C BC #### [facility] [address] [place] [address] Dr. David Brown Monocytes/100 WBC (Bld) 9.6 % Normal 1.7-12.0 [facility] Comment on above: Performed By: #### C BC #### [facility] [address] [place] [address] [address] David Brown NEUT # 4.8 103/ul Normal 1.4-6.5 [facility] Comment on above: Performed By: #### C BC #### [facility] [address] [place] [address] [address] David Brown Neutrophils/100 WBC (Bld) 49.5 % Normal 43.0-75.0 [facility] Comment on above: Performed By: #### C BC #### [facility] [address] [place] [address] Dr. David Brown Platelet mean volume (Bld) [Entitic vol] 12.0 fL Normal 9.5-13.5 [facility] Comment on above: Performed By: #### C BC #### [facility] [address] [place] [address] Dr. David Brown PLT 254 103/ul Normal 150-450 [facility] Comment on above: Performed By: #### C BC #### [facility] [address] [place] [address] Dr. David Brown RBC 5.15 106/ul Normal 4.70-6.10 [facility] Comment on above: Performed By: #### C BC #### [facility] [address] [place] [address] Dr. David Brown WBC 9.6 103/ul Normal 4.0-11.0 [facility] Comment on above: Performed By: #### C BC #### [facility] [address] [place] [address] Dr. David Brown GLYCOHEMOGLOBIN A1Con 2022 ADA RECOMMENDATION SEE BELOW Normal [facility] Comment on above: Result Comment: ADA RECOMMENDED LIMIT 4.0 - 6.0 ADA THERAPEUTIC TARGET < 7.0 ACTION SUGGESTED > 7.0 Performed By: #### A 1C #### [facility] [address] [place] [address] Dr. David Brown Glucose [Mass/Vol] 212 mg/dL Normal [facility] Comment on above: Performed By: #### A 1C #### [facility] [address] [place] [address] [address] David Brown HbA1c (Bld) [Mass fraction] 9.0 % Critically high 4.5-6.2 [facility] Comment on above: Performed By: #### A 1C #### [facility] [address] [place] [address] [address] David Brown MICROALBUMIN, RAND URon - mALB 5.5 mg/L Normal <=30.0 [facility] Comment on above: Performed By: #### M ALBR #### [facility] [address] [place] [address] [address] David Brown GLYCOHEMOGLOBIN A1Con 2021 ADA RECOMMENDATION SEE BELOW Normal [facility] Comment on above: Result Comment: ADA RECOMMENDED LIMIT 4.0 - 6.0 ADA THERAPEUTIC TARGET < 7.0 ACTION SUGGESTED > 7.0 Performed By: #### A 1C #### [facility] [address] [place] [address] [address] David Brown Glucose [Mass/Vol] 194 mg/dL Normal [facility] Comment on above: Performed By: #### A 1C #### [facility] [address] [place] [address] [address] David Brown HbA1c (Bld) [Mass fraction] 8.4 % Critically high 4.5-6.2 [facility] Comment on above: Performed By: #### A 1C #### [facility] [address] [place] [address] [address] David Brown Vital Signs Date Time Vital Sign Value Performing Clinician Facility 04-12-2025 11:04040 Body height 160.02 cm [facility] 04-12-2025 11:04040 Body mass index (BMI) [Ratio] 44.9 kg/m2 [facility] 04-12-2025 11:040 Body weight 115.21 kg [facility] 04-12-2025 11:04040 Diastolic blood pressure 89 mm[Hg] [facility] 04-12-2025 11:04-0400 Heart rate 116 /min [facility] 04-12-2025 11:04-0400 Respiratory rate 20 /min [facility] 04-12-2025 11:04-0400 Systolic blood pressure 139 mm[Hg] [facility] 04-05-2025 13:05-0400 Body height 165.1 cm Rodrick Dolce DPM FACFAS Work Phone: [facility] 04-05-2025 13:05-0400 Body mass index (BMI) [Ratio] 39.94 kg/m2 Rodrick Dolce DPM [employer] Work Phone: [facility] 04-05-2025 13:05-0400 Body weight 108.86 kg Rodrick Dolce DPM [employer] Work Phone: [facility] 04-05-2025 13:05-0400 Diastolic blood pressure 75 mm[Hg] Rodrick Dolce DPM [employer] Work Phone: [facility] 04-05-2025 13:05-0400 Heart rate 73 /min Rodrick Dolce DPM [employer] Work Phone: [facility] 04-05-2025 13:05-0400 Systolic blood pressure 130 mm[Hg] Rodrick Dolce DPM [employer] Work Phone: [facility] 10-19-2024 14:35-0500 Body height 165.1 cm Rodrick Dolce DPM [employer] Work Phone: [facility] 10-19-2024 14:35-0500 Body mass index (BMI) [Ratio] 39.94 kg/m2 Rodrick Dolce DPM [employer] Work Phone: [facility] 10-19-2024 14:35-0500 Body weight 108.86 kg Rodrick Dolce DPM [employer] Work Phone: [facility] 10-19-2024 14:35-0500 Diastolic blood pressure 75 mm[Hg] Rodrick Dolce DPM [employer]AC[employer] Work Phone: [facility] 10-19-2024 14:35-0500 Heart rate 72 /min Rodrick Dolce DPM [employer] Work Phone: [facility] 10-19-2024 14:35-0500 Systolic blood pressure 130 mm[Hg] Rodrick Dolce DPM [employer] Work Phone: [facility] 10-04-2024 08:46-0500 Body height 160 cm Orly Nima DO Work Phone: [facility] 10-04-2024 08:46-0500 Body mass index (BMI) [Ratio] 42.51 kg/m2 Orly Nima DO Work Phone: [facility] 10-04-2024 08:46-0500 Body weight 108.86 kg Orly Nima DO Work Phone: [facility] 10-04-2024 08:46-0500 Diastolic blood pressure 76 mm[Hg] Orly Nima DO Work Phone: [facility] 10-04-2024 08:46-0500 Heart rate 99 /min Orly Nima DO Work Phone: [facility] 10-04-2024 08:46-0500 SaO2% (BldA) [Mass fraction] 91 % Orly Nima DO Work Phone: [facility] 10-04-2024 08:46-0500 Systolic blood pressure 132 mm[Hg] Orly Nima DO Work Phone: [facility] 08-03-2024 14:01-0400 Body height 165.1 cm Rodrick Dolce DPM [employer] Work Phone: [facility] 08-03-2024 14:01-0400 Body mass index (BMI) [Ratio] 43.43 kg/m2 Rodrick Dolce DPM [employer] Work Phone: [facility] 08-03-2024 14:01-0400 Body weight 118.39 kg Rodrick Dolce DPM [employer] Work Phone: [facility] 08-03-2024 14:01-0400 Diastolic blood pressure 80 mm[Hg] Rodrick Dolce DPM [employer] Work Phone: [facility] [employer] 08-03-2024 14:01-0400 Heart rate 85 /min Rodrick Dolce DPM [employer] Work Phone: [facility] 08-03-2024 14:01-0400 Systolic blood pressure 130 mm[Hg] Rodrick Dolce DPM [employer] Work Phone: [facility] [employer] 07-28-2023 09:30-0400 Body height 160.02 cm Semaj Ball Other [employer] Other 07-28-2023 09:30-0400 Body mass index (BMI) [Ratio] 47.33 kg/m2 Semaj Ball Other [employer] Other 07-28-2023 09:30-0400 Body weight 121.2 kg Semaj Ball Other [facility] Other 07-28-2023 09:30-0400 Diastolic blood pressure 87 mm[Hg] Semaj Ball Other [facility] Other 07-28-2023 09:30-0400 Respiratory rate 12 /min Semaj Ball Other [facility] Other 07-28-2023 09:30-0400 Systolic blood pressure 132 mm[Hg] Semaj Ball Other [facility] Other 01-25-2023 12:30-0400 Body height 160.02 cm Semaj Ball Other [facility] Other 01-25-2023 12:30-0400 Body mass index (BMI) [Ratio] 47.75 kg/m2 Semaj Ball Other [facility] Other 01-25-2023 12:30-0400 Body weight 122.29 kg Semaj Avery Other [facility] Other 01-25-2023 12:30-0400 Diastolic blood pressure 82 mm[Hg] Semaj [employer] Other [facility] Other 01-25-2023 12:30-0400 Respiratory rate 12 /min Semaj [employer] Other [facility] Other 01-25-2023 12:30-0400 Systolic blood pressure 130 mm[Hg] Semaj [employer] Other [facility] Other Encounters Encounter Date Encounter Type Care Provider Facility Start: 04-12-2025 End: 04-12-2025 ambulatory [facility] Work Phone: Start: 04-12-2025 End: 04-12-2025 Patient encounter procedure [facility] Work Phone: Start: 04-05-2025 End: 04-05-2025 Bamboo flowsheet Rodrick R Dolce DPM FACFAS Work Phone: [facility] Start: 04-05-2025 End: 04-05-2025 Bamboo flowsheet Rodrick R Dolce DPM FACFAS Work Phone: [facility] Start: 04-05-2025 End: 04-05-2025 Patient encounter procedure Rodrick R Dolce DPM FACFAS Work Phone: [facility] Comment on above: Onychomycosis (Prima ry Dx); Type II diabetes mellitus with neurological manifestations (CMS/HCC); Pain in right toe(s); Pain in left toe(s) Start: 04-05-2025 End: 04-05-2025 ambulatory RODRICK R DOLCE Not Available Start: 01-11-2025 End: 01-11-2025 ambulatory RODRICK R DOLCE Not Available Start: 01-11-2025 End: 01-11-2025 Bamboo flowsheet Rodrick R Dolce DPM FACFAS Work Phone: [facility] Start: 01-11-2025 End: 01-11-2025 Bamboo flowsheet Rodrick R Dolce DPM FACFAS Work Phone: [facility] Start: 10-19-2024 End: 10-19-2024 Patient encounter [...] Bamboo flowsheet Orly Nima DO Work Phone: [facility] [address] [address] Start: 10-04-2024 End: 10-04-2024 Bamboo flowsheet Orly Nima DO Work Phone: [facility] [employer] [address] Start: 10-04-2024 End: 10-04-2024 Office outpatient new 45 minutes Orly Nima DO Work Phone: [facility] [employer] [facility] [employer] [address] Comment on above: LUÍS (obstructive [...] Evaluation and manag ement of inpatient DELGADO BOOTHE [facility] Start: 01-01-2024 End: 01-06-2024 Evaluation and management of inpatient SEMAJ AVERY [facility] Start: 11-02-2023 End: 11-02-2023 ambulatory Semaj Avery Other [facility] Other Start: 11-02-2023 Telephone encounter Semaj MILES [facility] Start: 10-29-2023 End: 10-29-2023 ambulatory Semaj Avery Other [facility] Other Start: 10-29-2023 Telephone encounter Semaj MILES [facility] Start: 10-27-2023 End: 10-27-2023 ambulatory Semaj Avery Other [facility] Other Start: 10-27-2023 Telephone encounter Semaj MILES [facility] Start: 10-05-2023 End: 10-05-2023 ambulatory Semaj Avery Other [facility] Other Start: 10-05-2023 Telephone encounter Semaj MILES [facility] Start: 08-09-2023 End: 08-09-2023 ambulatory Edi Henriquez Facility:[facility] Start: 07-28-2023 End: 07-28-2023 ambulatory Semaj Avery Other [facility] Other Start: 07-28-2023 Office outpatient vi sit 25 minutes Semaj Avery [facility] Start: 07-28-2023 Telephone encounter Semaj Avery [facility] Start: 02-04-2023 End: 02-04-2023 ambulatory Semaj Avery Other [facility] Other Start: 02-04-2023 Telephone encounter Semaj Avery [facility] Start: 02-03-2023 Telephone encounter Semaj MILES [facility] Start: 02-03-2023 End: 02-04-[address] SEMAJ AVERY [facility] [employer] Other Start: 01-25-2023 End: 01-25-2023 ambulatory Semaj Avery Other [facility] Other Start: 01-25-2023 Encounter for genera l adult medical examination without abnormal findings Semaj Avery [facility] Start: 01-25-2023 Initial preventive exam Semaj Trinidad onofre [facility] Start: 01-25-2023 Patient encounter procedure Semaj Avery [facility] Start: 08-07-2022 End: 08-08-[address] SEMAJ AVERY Facility: Procedures Date Procedure Procedure Detail Performing Clinician Start: 02-03-[address] [place] Comment on above: Performed By: #### P [facility] #### [facility] [address] [place] [address] Dr. David Brown Plan of Treatment Date Care Activity Detail Author Start: 07-09-2025 Influenza vaccination Influenz a Vaccine (Season Ended) [facility] Start: 06-14-2025 End: 06-14-2025 Patient encounter procedure 06/14/2025 1:00 PM EDT Procedure Visit [facility] [address] [place] [address] Rodrick Donohue, DPM FACFAS [address] [place] [address] [facility] Start: 04-05-2025 End: 04-05-2025 Patient encounter procedure 04/05/2025 1:00 PM EDT Office Visit [facility] [address] [place] [phone] Dolce, Rodrick R, DPM FACFAS [address] [facility] [place] [address] Arrived [facility] Comment on above: Arrived Start: 01-11-2025 End: 01-11-2025 Patient encounter procedure 01/11/2025 2:30 PM EST Office Visit [facility] [address] [place] [phone] Dolce, Rodrick R, DPM FACFAS [address] [facility] [place] [address] Arrived [facility] Comment on above: Arrived Start: 12-28-2024 End: 12-28-2024 Patient encounter procedure 12/28/2024 2:30 PM EST Office Visit [facility] [address] [place] [address] Dolce, Rodrick R, DPM FACFAS [address] [facility] [place] [address] [facility] Start: 10-19-2024 End: 10-19-2024 Patient encounter procedure 10/19/2024 2:30 PM EST Office Visit [facility] [address] [place] [address] Dolce, Rodrick R, DPM FACFAS [address] [facility] [place] [address] Arrived [facility] Comment on above: Arrived Start: 10-12-2024 End: 10-12-2024 Patient encounter procedure 10/12/2024 2:50 PM EST Office Visit [facility] [address] [place] [phone] Rdorick Donohue R, DPM FACFAS [address] [facility] [place], [place] [id number] [facility] Start: 10-04-2024 End: 10-04-2024 Patient encounter procedure 10/04/2024 9:00 AM EST Office Visit [facility] [address] [address] [place] [phone] Orly Herring, [address] [place] [id number] Arrived [facility] [address] [address] Comment on above: Arrived Start: 08-03-2024 End: 08-03-2024 Patient encounter procedure 08/03/2024 2:00 PM EDT Office Visit [facility] [address] [place] [address] Rodrick Donohue, DPM FACFAS [address] [facility] [place] [address] Arrived [facility] Comment on above: Arrived Start: 07-09-2024 Influenza vaccination Influenza Vacc ine (#1) [facility] Start: 1970 Screening for malign ant neoplasm of colon [facility] Immunizations Immunization Date Immunization Notes Care Provider Fa cili 09-04-2022 influenza, injectabl e, quadrivalent, contains preservative Semaj Avery Other [facility] Other 09-04-2022 COVID-19 Pfizer (bivalent) Semaj Avery Other [facility] 09-04-2022 COVID-19 Pfizer (Pediatric) Semaj Avery Other [facility] 09-04-2022 influenza virus vaccine, split virus (incl. purified surface antigen) Semaj Avery Other [facility] Other 09-04-2022 influenza, injectabl e, quadrivalent, preservative free [facility] 09-04-2022 influenza virus vaccine, unspecified formulation Rodrick Donohue DPM FACFAS Work Phone: [facility] 04-18-2022 zoster vaccine recombinant Semaj Avery Other [facility] 04-18-2022 zoster vaccine, live Benjami n Ball Other [facility] 02-13-2022 COVID-19 Vaccine Pfi zer - Documentation Purposes Only Semaj Avery Other [facility] 02-13-2022 Prevnar 20 Semaj Avery Other [facility] 02-13-2022 zoster vaccine recombinant Semaj Avery Other [facility] 02-13-2022 zoster vaccine, live Benjami n Bennie Other [facility] 09-30-2021 COVID-19 Vaccine Pfi zer - Documentation Purposes Only Semaj Avery Other [facility] 02-11-2021 COVID-19 Vaccine Pfi zer - Documentation Purposes Only Semaj Avery Other [facility] 01-20-2021 COVID-19 Vaccine Pfi zer - Documentation Purposes Only Semaj Avery Other [facility] 07-22-2020 influenza virus vaccine, split virus (incl. purified surface antigen) Semaj Avery Other [facility] Other 07-22-2020 influenza virus vaccine, unspecified formulation [facility] 09-13-2017 tetanus and diphther ia toxoids, adsorbed, preservative free, for adult use (5 Lf of tetanus toxoid and 2 Lf of diphtheria toxoid) Semaj Avery Other [facility] Payers Date Payer Category Payer Medicare AETNA MEDICARE A DVANTAGE AETNA MEDICARE REPLACEMENT [id number] 2024-Present [address] [place] [address] [id number] 2024 Medicare [id number] 2023 Self-pay 2022 Medicaid [id number] 1970 Unknown [id number] 1970 Unknown [id number] [id number] 1969 Unknown [id number] [id number] 1969 Unknown [id number] [id number] 1969 Unknown [id number] [id number] 1969 Unknown [id number] [id number] 1969 Unknown [id number] [id number] 1969 Unknown [id number] [id number] 1969 Unknown [id number] [id number] 1969 Unknown [id number] [id number] 1960 Medicaid [id number] [id number] 1960 Medicare [id number] [id number] Unknown [id number] Social History Date Type Detail Facility Start: 08-03-2024 End: 01-11-2025 Sex Assigned At [facility] [employer] Other Start: 04-08-2023 End: 02-25-2024 Tobacco smoking status NHIS Never smoked tobacco [facility] Start: 04-08-2023 Tobacco use and exposure Smokeless tobacco non-user [facility] Start: 10-04-2024 End: 04-05-2025 Alcoholic beverage intake Lifetime non-drinker (finding) [facility] Start: 08-03-2024 End: 01-11-2025 History of Social function [facility] Start: 04-05-2023 Alcohol Comment Hasn't drank a lcohol in the past 12 months [facility] Start: 1970 Sex assigned at Not on file N [facility] Start: 10-04-2024 Tobacco use and exposure User of smokeless tobacco [facility] Start: 04-12-2025 Sex Male (finding) [facility] Start: 1970 Sex Assigned At Male [facility] Medical Equipment Procedure Code Equipment Code Equipment Origin al Text Equipment Identifier Dates Blood Sugar Diagnostic (Onetouch Verio Test Strips) strip Start: 04-09-2025 Blood Sugar Diagnostic (Onetouch Verio Test Strips) strip Start: 03-16-2024 End: 03-23-2024 Blood Sugar Diagnostic (Onetouch Verio Test Strips) strip Start: 03-23-2024 End: 04-09-2025 Clinical Notes 01-25-2023 to 04-05-2025 BEREKET MedinaFAS - 04/05/2025 1:00 PM EDTBEREKET MedinaFAS - 10/19/2024 2:30 PM Misha Herring DO - 10/04/2024 9:00 AM Eladia Donohue DPM FACFAS - 08/03/2024 2:00 PM EDT Note Date & Type Note Facility 04-05-2025 History of Presen t illness Narrative Images from the original note were not included. patient: Vitaly Dobson : 1970 PCP: Semaj Avery, DO SUBJECTIVE This is a 54 y.o. male diabetic patient presents today chief complaint of painful elongated nails digits 1 through 10 the cause marked limitation in ambulation due to pain and pressure from shoe gear. The patient states he has been attempting to control his blood glucose levels with regular visits to his primary care physician. Allergies: No Known Allergies Past Medical History: Active Ambulatory Problems Diagnosis Date Noted No Active Ambulatory Problems Resolved Ambulatory Problems Diagnosis Date Noted No Resolved Ambulatory Problems Past Medical History: Diagnosis Date Ankylosing spondylitis Diabetes ([facility]) Hypertension ([facility]) Pulmonary embolism Subdural hematoma ([facility]) Medications: Current Outpatient Medications: apixaban (Eliquis) 5 [...] EVENING MEAL (Patient not taking: Reported on 01/11/2025), Disp: , Rfl: nabumetone (Relafen) 750 MG tablet, , Disp: , Rfl: pioglitazone (Actos) 15 MG tablet, Take 15 mg by mouth Daily, Disp: , Rfl: tiZANidine (Zanaflex) 6 MG [...] subungual debris. They were painful to palpation [id number] on the right 76295 on the left. VASC: DP /PT were nonpalpable bilateral. Capillary refill time < 3 seconds Digits 1-5 bilateral NEURO: [place] 5.07 monofilament was diminished B/L. Vibratory [...] have their nails trimmed only by a snuff drier to reduce the risk of injury or [...] intervention. BEREKET Medina documented in this encounter [facility] 10-19-2024 History of Presen t illness Narrative [...] subungual debris. They were painful to palpation 60877 on the right 26714 on the left. VASC: DP /PT were nonpalpable bilateral. Capillary refill time < 3 seconds Digits 1-5 bilateral NEURO: [place] 5.07 monofilament was diminished B/L. Vibratory [...] have their nails trimmed only by a snuff drier to reduce the risk of injury or [...] intervention. BEREKET Medina documented in this encounter [facility] 10-04-2024 History of Presen t illness Narrative [...] not get comfortable enough to sleep. His Donalds Sleepiness scale is a 7. He does have underlying obesity and needs to be more aggressive with diet exercise weight loss. Plan PSG was reviewed with him BiPAP titration was reviewed with him Donalds Sleepiness scale is 7 Compliance data was reviewed and he is not compliant. He was counseled on need to be compliant and ways to do that. The patient was counseled on the need for aggressive diet, exercise, and weight loss. The patient was counseled on proper sleep hygiene and adequate hours of sleep. The patient was counseled on the risks of stroke, [place], and sudden with LUÍS, along with the [...] clinic: 2 months documented in this encounter [facility] 08-03-2024 History of Presen t illness Narrative [...] History: Past Medical History: Diagnosis Date Diabetes ([facility]) Medications: Current Outpatient Medications: apixaban (Eliquis) 5 [...] subungual debris. They were painful to palpation 58538 on the right 37754 on the left. VASC: DP /PT were nonpalpable bilateral. Capillary refill time < 3 seconds Digits 1-5 bilateral NEURO: [place] 5.07 monofilament was diminished B/L. Vibratory [...] in length and thickness 1 through 10. BEREKET Medina documented in this encounter [facility] 11-02-2023 Evaluation note Encounter Date Diagnosis Assessment Notes Oct, Ankylosing spondylitis of thoracolumbar region (ICD-10 - M45.5) [facility] Other 12-22-2023 Evaluation note* Encounter Date Diagnosis Assessment Notes Treatment Notes Treatment Clinical Notes Oct, Type 2 diabetes mellitus with hyperglycemia, without long-term current use of insulin (ICD-10 - E11.65) [facility] Other 11-28-2023 Evaluation note* Encounter Date Diagnosis Assessment Notes Treatment Notes Treatment Clinical Notes Sep, Type 2 diabetes mellitus with hyperglycemia, without long-term current use of insulin (ICD-10 - E11.65) [facility] Other 09-20-2023 Evaluation note* Encounter Date Diagnosis [...] heat/ice and continue Tylenol. Muscle relaxants at for sleep. Would benefit w/ lift chair for both sleeping and assisting in standing from sitting position. Jul, Cervical spondylosis (ICD-10 - M47.812) ROM exercises, heat/ice and Tylenol. Continue muscle relaxant at for sleep. XR and referral to pain [...] creams, lidocaine patches and muscle relaxants at [facility] Other 09-20-2023 NoteProcedure(s): XR cervical spine 2-3V [facility] Other 09-20-2023 NoteProcedure: [facility]R cervical spine [facility] Other 09-20-2023 NoteProcedure(s): XR thoracic spine [facility] [employer] Other 09-20-2023 NoteProcedure: XR thoracic spine [employer] Other 09-20-2023 NoteProcedure(s): XR lumbar spine 2-[facility] Other 09-20-2023 NoteProcedure: XR lumbar spine 2-[employer] Other 03-30-2023 Evaluation note* Encounter Date Diagnosis Assessment Notes Treatment Notes Treatment Clinical Notes Jan, Mixed hyperlipidemia (ICD-10 - E78.2) [facility] Other 03-29-2023 Evaluation note* Encounter Date Diagnosis Assessment Notes Treatment Notes Treatment Clinical Notes Jan, Type 2 diabetes mellitus with hyperglycemia, without long-term current use of insulin (ICD-10 - E11.65) [facility] Other 03-20-2023 Evaluation note* Encounter Date Diagnosis [...] reviewed and amended by provider signed below. [facility] Other Evaluation noteNo [employer] [employer] Other Evaluation note* Diagnosis LUÍS (obstructive sleep apnea)- Primary Obstructive sleep apnea (adult) (pediatric) Hypoxia Hypoxemia Hypersomnia Hypersomnia, unspecified Snoring Other dyspnea and respiratory abnormality documented in this encounter [facility]* Diagnosis Onychomycosis- Primary Dermatophytosis of nail Type II diabetes mellitus with neurological manifestations (CMS/HCC) Type II or unspecified type diabetes mellitus with neurological manifestations, not stated as uncontrolled Pain in right toe(s) Pain in left toe(s) documented in this encounter [facility]* Diagnosis Onychomycosis- Primary Dermatophytosis of nail Type II diabetes mellitus with neurological manifestations (CMS/HCC) Type II or unspecified type diabetes mellitus with neurological manifestations, not stated as uncontrolled Pain in right toe(s) Pain in left toe(s) documented in this encounter [facility]* Diagnosis Onychomycosis- Primary Dermatophytosis of nail Type II diabetes mellitus with neurological manifestations (CMS/HCC) Type II or unspecified type diabetes mellitus with neurological manifestations, not stated as uncontrolled Pain in right toe(s) Pain in left toe(s) documented in this encounter [facility]* Diagnosis Onset Date Resolution Status Admit Date Ankylosing spondylitis acute 2024 10:53am Chronic venous insufficiency of lower extremity acute April 12, 2025 10:53am Essential hypertension acute 2024 10:53am Hypercholesterolemia acute April 12, 2025 10:53am Hypoxia acute April 12, 2025 10:53am Obesity acute April 12, 2025 10:53am LUÍS (obstructive sleep apnea) acute April 12, 2025 10:53am Pulmonary embolism acute April 122024 10:53am Pulmonary hypertension acute 2024 10:53am Type 2 diabetes mellitus wit h hyperglycemia acute April 12, 2025 10:53am [facility] Work Phone: History general Narrative - Reported* Type Description [...] HEM ATOMA Hospitalization History SEE SURGICAL HX [facility] Other Reason for referral (narrative)* Reason Referral for ankylos ing spondylitis Diagnosis 1 Ankylosing spondylit is of thoracolumbar region (M45.5) Diagnosis 2 Scoliosis (and kypho scoliosis), idiopathic (M41.20) Diagnosis 3 Cervical spondylosis (M47.812) Referral Organization [facility] Violeta simental Referring Provider First Name Semaj Referring Provider Last Name Bennie Referring Provider Specialty Internal Me dicine Referred Organization Unknown Facility Referred Provider dEi Henriquez Referred Provider Specialty Rheumatology Referral Priority [...] medical treatment. Clinical Notes Include XR reports [facility] Other Summary Purpose Family History Relationship Condition Age at Onset Recorded Date/T riley mother Dementia Unknown Malignant neoplasm of lung Unknown father Myocardial infarction Unknown Advance Directives Advance Directive Response Recorded Date/ Time Advance Directives No March 27 2:12pm Chief Complaint and Reason for Visit Chief Complaint Admit Date 4 month f/u April 12, 2025 10:53 am Reason for Visit Admit Date Ankylosing spondylitis April 12, 2025 10 :53am Chronic venous insufficiency of lower ex tremity April 12, 2025 10:53am Essential hypertension April 12, 2025 10 :53am Hypercholesterolemia April 12, 2025 10:5 3am Hypoxia April 12, 2025 10:53 am Obesity April 12, 2025 10:53 am LUÍS (obstructive sleep apnea) April 12, 2025 10:53am Pulmonary embolism April 12, 2025 10:53 am Pulmonary hypertension April 12, 2025 10 :53am Type 2 diabetes mellitus with hyperglyce filemon April 12, 2025 10:53am Additional Source Comments REASON FOR VISIT (unrecogniz ed section and content) Reason Comments Sleep Apnea Reason Comments Toenail Care Non DM nail care Reason Comments DM Foot Care Dm nail care (unrecognized sect ion and content) No Status Records FoundNo Status Records FoundNo Status Records FoundNo Status Records Found INFORMATION SOURCE (unrecogn ized section and content) DATE CREATED AUTHOR 02/14/2023 [facility] DATE CREATED AUTHOR AUTHOR'S ORGANIZ ATION 08/18/2023 [facility] DATE CREATED AUTHOR AUTHOR'S ORGANIZ ATION 01/13/2024 [facility] DATE CREATED AUTHOR AUTHOR'S ORGANIZ ATION 04/07/2025 [facility] dical Specialists [facility] Care Teams (unrecognized sec tion and content) Ged Teacher Relationship Specialty Start Date End Date Semaj Avery MD [address] [place] [facility] [place] [address] PCP - General Internal Medicine 04/08/23 Ged Teacher Relationship Specialty Start Date End Date Semaj Avery MD [address] [place] [address] PCP - General Internal Medicine 04/08/23 Ged Teacher Relationship Specialty Start Date End Date Semaj Avery MD [address] [place] [address] PCP - General Internal Medicine 04/08/23 Ged Teacher Relationship Specialty Start Date End Date Semaj Avery MD [address] [place] [address] PCP - General Internal Medicine 04/08/23 Ged Teacher Relationship Specialty Start Date End Date Semaj Avery DO [address] [place] [facility] [address] PCP - General Internal Medicine 04/08/23 Ged Teacher Relationship Specialty Start Date End Date Semaj Avery DO [address] [place] [address] PCP - General Internal Medicine 04/08/23 Team Status: Active Member Role Status Dates Semaj Avery DO Primary Care Provider Active Team Status: Inactive Member Role Status Dates Semaj Avery DO Primary Care Provide r, Attending Provider Active Start: April 12, 2025 End: April 12, 2025 Goals (unrecognized section and content) Goals may be documented in a n alternate section FOR RECORDS PERTAINING TO PATIENTS WHO ARE [...] BE BASED ON THE PRIMARY CLINICAL RECORDS. [facility] [employer] [facility]. provides no warranty or guarantee of the accuracy or completeness of information in this document.
[2025-06-27 13:03] LABS: Hemoglobin 15.4 g/dL (14.0-18.0)
[2025-06-27] MEDS: ALBUTEROL SULFATE 2.5 MG/3 ML VIAL NEB IH (14:02)
== END 2025-06-27 12:52 | disposition home or self-care (01) ==
LOC: CARD 12:52
PROVIDERS: PCP Internal Medicine; Visit Provider Internal Medicine
DX: R09.02 Hypoxemia (principal); R06.00 Dyspnea, unspecified
CPT/HCPCS: 36415; 85018; 94060; 94726; 94729

== ENCOUNTER 2025-08-02 10:39 | Outpatient (OUT) | payer MEDICARE, OTHER, SELFPAY ==
--- OUTSIDE RECORDS SUMMARY | 2025-08-02 10:46 | XMS_ITS | CCD ---
Author Organization [facility] Care Team Providers Care Aerial Gunner Name Role Phone Semaj Avery Unavailable BENNIE, DR PLATT Primary Care Unavailable BENNIE, DR PLATT Consulting Unavailable BENNIE, DR PLATT Attending Unavailable BENNIE, DR PLATT Admitting Unavailable BENNIE, DR PLATT Consulting Unavailable BENNIE, DR PLATT Attending Unavailable BENNIE, DR PLATT Admitting Unavailable BENNIE, DR PLATT Primary Care Unavailable Martinez, Edi Attending Unavailable Martinez, Edi Admitting Unavailable Semaj Avery Primary Care Unavailable SEMAJ AVERY Primary Care Unavailable TETE GUIDO Attending Unavailable ARLINE, JANNET Admitting Unavailable GUIDODELGADO Consulting Unavailabl e ARLINE, JANNET Consulting Unavailable NURA, MOHAMMED S Consulting Unavailable GUIDO, DELGADO BOOTHE Attending Unavailabl e DELGADO GUIDO Referring UnavailSEMAJ Richards Primary Care Unavailable Semaj Avery MD Primary Care Provider Semaj Avery DO Primary Care Provider MARTHA, RODRICK R Attending Unavailable DOLCE, RODRICK R Attending Unavailable DOLCE, RODRICK R Attending Unavailable DOLCE, RODRICK R Attending Unavailable ORLY HERRING Attending Unavailable MARTHA, RODRICK R Attending Unavailable Semaj Avery DO Primary Care Provider Semaj Avery DO Attending Provider Medications Current Medications Medication Drug Class(es) Dates Sig (Normalized) Sig (Original) acetaminophen 500 mg oral tablet (3 sources) Start: 05-29-2025 take 1 tablet by mouth twice daily as needed for pain Acetaminophen 500 mg tablet Active 500 MG PO Twice daily as needed for pain 180 90 May 29, 2025 12:00am Complies with drug therapy Start: 02-25-2024 End: 03-23-2024 take 2 capsules by mouth every six hours as needed Acetaminophen 325 mg capsule Discontinued 650 MG PO Every 6 hours as needed February 25, 2024 12:00am March 23, 2024 9:44am apixaban 5 mg oral tablet (20 sources) Factor Xa Inhibitor Start: 09-12-2024 End: 03-03-2025 take 1 tablet by mouth twice daily Apixaban (Eliquis) 5 mg tablet Active 0 .ROUTE .COMPLEX 60 March 03, 2025 3:32pm TAKE 1 TABLET BY MOUTH TWICE A DAY Complies with drug therapy Start: 02-25-2024 End: 09-12-2024 take 1 tablet by mouth twice daily Apixaban (Eliquis) 5 mg tablet Discontinued 5 MG PO Twice daily 60 March 23, 2024 9:58am September 12, 2024 10:51pm Start: 01-06-2024 apixaban (Eliq uis) 5 MG tablet Take 10 mg by mouth 01/06/2024 Active atorvastatin 10 mg oral tablet (18 sources) HMG-CoA Reductase Inhibitor Start: 06-04-2025 take 1 tablet by mouth once daily at bedtime Atorvastatin 10 mg tablet Active 0 .ROUTE .COMPLEX 100 June 04, 2025 2:44pm TAKE 1 TABLET BY MOUTH EVERYDAY AT BEDTIME Complies with drug therapy Start: 07-11-2024 End: 06-04-2025 take 1 tablet by mouth once daily at bedtime Atorvastatin 10 mg tablet Discontinued 10 MG PO Daily at bedtime 90 May 29, 2025 10:28pm June 04, 2025 2:44pm fenofibrate 200 mg oral capsule (20 sources) Peroxisome Proliferator Receptor alpha Agonist Start: 05-29-2025 take 1 capsule by mouth once daily Fenofibrate Micronized 200 mg capsule Active 200 MG PO Daily May 29, 2025 10:28pm Complies with drug therapy Start: 04-16-2024 End: 05-29-2025 take 1 capsule by mouth once daily Fenofibrate Micronized 200 mg capsule Discontinued 0 .ROUTE .COMPLEX March 16, 2025 7:43am May 29, 2025 10:33pm TAKE 1 CAPSULE BY MOUTH EVERY DAY Start: 02-04-2023 End: 04-16-2024 take 1 capsule by mouth once daily Fenofibrate Micronized 200 mg capsule Discontinued 200 MG PO Daily March 23, 2024 10:00am April 16, 2024 5:54pm glimepiride 4 mg oral tablet (20 sources) Sulfonylurea Start: 06-26-2024 End: 11-20-2024 take 1 tablet by mouth once daily Glimepiride 1 mg tablet Discontinued 1 MG PO Daily 90 August 01, 2024 9:36am November 20, 2024 [...] table t Discontinued 0.5 MG PO Daily 45 May 18, 2024 5:16pm June 26, 2024 7:57pm Start: 03-24-2023 End: 05-29-2025 take 1 tablet by mouth once daily Glimepiride 4 mg tablet Active 4 MG PO Daily May 29, 2025 10:29pm Complies with drug therapy Start: 03-31-2022 End: 02-25-2024 take 1 tablet [...] dose nasal spray (20 sources) Anticholinergic Start: 06-04-2025 Ipratropium Br omide 42 mcg (0.06 %) spray,non-aerosol Active 2 SPRAY INTRANASAL Three times daily 45 June 04, 2025 2:44pm Complies with drug therapy Start: 07-21-2024 End: 06-04-2025 Ipratropium Dexter 42 mcg ( 0.06 %) spray,non-aerosol Discontinued 2 SPRAY INTRANASAL daily 45 90 May 29, 2025 10:29pm June 04, 2025 2:44pm Start: 02-25-2024 End: 07-21-2024 take 1 mL by inhalation every six hours as needed Ipratropium Dexter 0.02 % solution Discontinued 2.5 ML INHALATION Every 6 hours as needed February 25, 2024 12:00am July 21, 2024 12:50pm Start: 08-11-2023 ipratropium (A trovent) 0.06 % nasal spray 08/11/2023 Active Start: 03-31-2022 End: 02-25-2024 Ipratropium Dexter 42 mcg ( 0.06 %) spray,non-aerosol Discontinued [...] route three times daily as needed Ipratropium Dexter 0.06 % 2 sprays in each nostril Nasally Three times a day as needed Active lisinopril 20 mg oral tablet (20 sources) Angiotensin Converting Enzyme Inhibitor Start: 07-09-2025 take 1 tablet by mouth once daily Lisinopril 20 mg tablet Active 0 .ROUTE .COMPLEX July 09, 2025 4:35pm TAKE 1 TABLET BY MOUTH EVERY DAY Complies with drug therapy Start: 05-29-2025 End: 07-09-2025 take 1 tablet by mouth once daily Lisinopril 20 mg tablet Discontinued 20 MG PO Daily 90 May 29, 2025 10:29pm July 09, 2025 4:36pm Start: 07-21-2024 End: 05-29-2025 take 1 tablet by mouth once daily Lisinopril 20 mg tablet Discontinued 0 .ROUTE .COMPLEX July 21, 2024 12:49pm May 29, 2025 10:33pm TAKE 1 TABLET BY MOUTH EVERY DAY Start: 03-23-2024 End: 07-21-2024 take 1 tablet by mouth once daily Lisinopril 20 mg tablet Discontinued 20 MG PO Daily March 23, 2024 10:01am July 21, 2024 12:50pm Start: 03-31-2022 End: 02-25-2024 take 1 tablet by mouth once daily Lisinopril 10 mg tablet Discontinued 10 MG PO Daily March 31, 2022 12:00am February 25, 2024 2:05pm Lisinopril 20 MG TAKE 1 TABLET BY MOUTH EVERY DAY Orally Once a day for 30 days Active melatonin 3 mg oral tablet (20 sources) Start: 04-14-2024 End: 12-10-2024 take 1 tablet by mouth once daily at bedtime Melatonin 3 mg tablet Active 0 .ROUTE .COMPLEX December 10, 2024 10:11am TAKE 1 TABLET BY MOUTH EVERYDAY AT BEDTIME Complies with drug therapy Start: 03-23-2024 End: 03-23-2024 take 2 tablets [...] 2024 4:43pm take 1 capsule by mo [facility] at bedtime Melatonin 3 MG capsule [...] 30 Active pioglitazone 15 mg oral tablet (7 sources) Peroxisome Proliferator Receptor alpha Agonist, Peroxisome Proliferator Receptor gamma Agonist, Thiazolidinedione Start: 05-29-2025 take 1 tablet by mouth once daily Pioglitazone 15 mg tablet Active 15 MG PO Daily May 29, 2025 10:30pm Complies with drug therapy Start: 04-29-2025 End: 05-29-2025 take 1 tablet by mouth once daily Pioglitazone 15 mg tablet Discontinued 0 .ROUTE .COMPLEX April 29, 2025 7:53am May 29, 2025 10:33pm TAKE 1 TABLET BY MOUTH EVERY DAY Start: 01-04-2025 End: 04-29-2025 take 1 tablet by mouth once daily Pioglitazone 15 mg tablet Discontinued 15 MG PO Daily January 04, 2025 1:00am April 29, 2025 7:53am tiZANidine 4 mg oral tablet (20 sources) Central alpha-2 Adrenergic Agonist Start: 05-29-2025 take 1 tablet by mouth once daily at bedtime Tizanidine 4 mg tablet Active 4 MG PO Daily at bedtime May 29, 2025 10:30pm Complies with drug therapy Start: 04-14-2024 End: 05-29-2025 take 1 tablet by mouth once daily at bedtime Tizanidine 4 mg tablet Discontinued 0 .ROUTE .COMPLEX December 10, 2024 10:11am May 29, 2025 10:33pm TAKE 1 TABLET BY MOUTH EVERYDAY AT BEDTIME Start: 02-25-2024 End: 04-14-2024 take 1 capsule by mouth once daily at bedtime Tizanidine 4 mg capsule Discontinued 4 MG PO Daily at bedtime March 23, 2024 10:01am April 14, 2024 1:36pm Start: 01-05-2024 End: 02-25-2024 take 3 tablets by mouth once daily Tizanidine 2 mg tablet Discontinued 6 MG PO Daily 270 90 January 05, 2024 7:12pm February 25, 2024 2:05pm Start: 11-09-2023 tiZANidine HCl 4 MG 1 1/2 tablet Orally q HS for 30 days Nov, Active Start: 12-23-20[address] [facility] once daily at bedtime tiZANidine (Zanaflex) 6 MG capsule TAKE 1 CAPSULE BY MOUTH EVERYDAY AT BEDTIME 12/23/2022 Active Start: 03-31-2022 End: 01-05-2024 take 1 tablet by mouth once daily Tizanidine 2 mg tablet Discontinued 2 MG PO Daily March 31, 2022 12:00am January 05, 2024 7:12pm traMADol hydrochloride 50 mg oral tablet (20 sources) Opioid Agonist Start: 06-05-2025 End: 07-09-2025 take 1 tablet by mouth twice daily as needed for pain Tramadol 50 mg tablet Active 50 MG PO Twice daily as needed for pain 60 30 July 09, 2025 4:35pm Complies with drug therapy Start: 06-26-2024 End: 06-05-2025 take 1 tablet by mouth once daily Tramadol 50 mg tablet Discontinued 50 MG PO Daily 90 90 May 29, 2025 10:31pm June 05, 2025 12:46pm Start: 08-30-2023 take 1 tablet by angelika [...] Drug Class(es) Dates Sig (Normalized) Sig (Original) albuterol 0.83 mg/ml inhalation solution (2 sources) beta2-Adrenergic Agonist Start: 02-25-2024 End: 03-23-2024 take 2.5 mg by inhalation every four hours as needed Albuterol Sulfate 2.5 mg /3 mL (0.083 %) solution for nebulization Discontinued 2.5 MG INHALATION Every 4 hours as needed February 25, 2024 12:00am March 23, 2024 9:45am Blood-Glucose Sensor (Dexcom G7 Sensor) device (2 sources) Start: 02-29-2024 End: 03-23-2024 Blood-Glucose Sensor (Dexcom G7 Sensor) device Discontinued 0 .Route 1 February 29, 2024 12:00am March 23, 2024 10:00am Use to test home BS 4x daily Blood-Glucose,Recei ben,Cont (Dexcom G7 Sponge Hooker) misc (2 sources) Start: 02-29-2024 End: 03-23-2024 Blood-Glucose,Recei ben,Cont (Dexcom G7 Sponge Hooker) misc Discontinued 0 .Route 1 February 29, 2024 12:00am March 23, 2024 9:59am As directed doxycycline hyclate 100 mg oral capsule (2 sources) Tetracycline-cla ss Drug Start: 02-25-2024 End: 03-23-2024 take 1 capsule by mouth twice daily Doxycycline Hyclate 100 mg capsule Discontinued 100 MG PO Twice daily 14 7 February 25, 2024 12:00am March 23, 2024 9:45am furosemide 40 mg oral tablet (6 sources) Loop Diuretic Start: 04-14-2024 End: 06-26-2024 take 1 tablet by mouth once daily Furosemide 40 mg tablet Discontinued 0 .ROUTE .COMPLEX 90 April 14, 2024 4:42pm June 26, 2024 8:43am TAKE 1 TABLET BY MOUTH EVERY DAY Start: 02-25-2024 End: 04-14-2024 take 1 tablet by mouth once daily Furosemide 40 mg tablet Discontinued 40 MG PO Daily March 23, 2024 10:00am April 14, 2024 4:43pm 3 ml insulin lispro 100 unt/ml pen injector (1 source) Insulin Analog Start: 02-25-2024 End: 03-23-2024 Insulin Lispro (Humalog Kwikpen Insulin) 100 unit/mL insulin pen Discontinued 1 sliding scale dose SUBCUT Use as Directed February 25, 2024 12:00am March 23, 2024 9:36am Insulin Lispro (Humalog Kwikpen Insulin) 100 unit/mL insulin pen (1 source) Start: 02-25-2024 End: 03-23-2024 Insulin Lispro (Humalog Kwikpen Insulin) 100 unit/mL insulin pen Discontinued 1 sliding scale dose SUBCUT Use as Directed February 25, 2024 12:00am March 23, 2024 9:36am magnesium oxide 400 mg oral tablet (2 sources) Start: 02-25-2024 End: 06-26-2024 take 2 tablets [...] tablet Discontinued 500 MG PO Twice daily March 23, 2024 12:00am April 24, 2024 4:58pm Start: 03-19-2023 End: 03-23-2024 take 1 tablet by mouth twice daily at mealtime Metformin 1,000 mg tablet Discontinued 1000 MG PO Twice daily with meals February 25, 2024 12:00am March 23, 2024 9:36am Start: 03-31-2022 End: 03-31-2022 Metformin 1,000 mg tablet Discontinued MG March 31, 2022 12:00am March 31, 2022 2:25pm Start: 03-31-2022 End: 02-25-2024 take 1 tablet by mouth once daily Metformin 1,000 mg tablet Discontinued 1000 MG PO Daily March 31, 2022 12:00am February 25, 2024 2:05pm mupirocin 0.02 mg/mg topical ointment (2 sources) RNA Synthetase Inhibitor Antibacterial Start: 02-25-2024 End: 03-23-2024 Mupirocin 2 % ointment Discontinued 1 APPLIC TOPICAL Twice daily 29 08February 25, 2024 12:00am March 23, 2024 9:46am nitroglycerin 0.4 mg sublingual tablet (2 sources) Nitrate Vasodilator Start: 02-25-2024 End: 03-23-2024 Nitroglycerin 0.4 mg tablet, sublingual Discontinued 0.4 MG SUBLINGUAL every 5 to 15 minutes as needed February 25, 2024 12:00am March 23, 2024 10:02am do not exceed 3 doses per episode polyethylene glycol 3350 90351 mg powder for oral solution (9 sources) Osmotic Laxative Polyethylene Gl ycol 3350 17 GM/SCOOP USE DIRECTED TWICE A DAY for 30 Not-Taking/PRN Polyethylene Glycol 3350 17 GM/SCOOP (1 source) Polyethylene Gly col 3350 17 GM/SCOOP USE DIRECTED TWICE A DAY for 30 Not-Taking Problems Problem Classification Problem Date Documented Date Episodic/Chronic Deficiency and other anemia (2 sources) Anemia; Translations: [Anemia, unspecified] 03-23-2024 Episodic Diabetes mellitus with complications (20 sources) Type 2 diabetes mellitus; Translations: [Type 2 diabetes mellitus with hyperglycemia] Onset: 02-03-2023 Chronic Disorders of lipid metabolism (20 sources) Hypercholesterolemia; Translations: [Pure hypercholesterolemia, unspecified] Onset: 02-05-2023 Chronic Essential hypertension (18 sources) Essential hypertension; Translations: [Essential (primary) hypertension] Onset: 02-05-2023 Chronic Mycoses (6 sources) Onychomycosis; Translations: [Tinea unguium] 10-19-2024 Episodic Other aftercare (3 sources) Other long filler cigar roller machine (current) drug therapy; Translations: [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 THERAPY] Onset: 02-05-2023 Episodic Other aftercare (1 source) Drug therapy finding; Translations: [Other long filler cigar roller machine (current) drug therapy] 03-23-2024 Episodic Other aftercare (1 source) Taking high risk medication; Translations: [Other long filler cigar roller machine (current) drug therapy] 03-23-2024 Episodic Other and [...] Episodic Other diseases of veins and lymphatics (2 sources) Venous insufficiency of leg; Translations: [Venous insufficiency [...] source) Hypoxemia; Translations: [Hypoxemia] 04-12-2025 Episodic Other lower respiratory disease (1 source) Hypoxemia; Translations: [Hypoxemia] 06-27-2025 Episodic Comment on above: PFT: FEV1/FVC 72, FE V1 48% (+10%), FEF 25-75 34% (+61%), TLC 97, RV/TLC 199%, DLCO 81 - 06/2025 Other nutritional; endocrine; and metabolic disorders (3 sources) Obesity; Translations: [Obesity, unspecified] 04-03-2025 Chronic Other nutritional; endocrine; and metabolic disorders (1 source) Obesity, unspecified; Translations: [Obesity, unspecified] 04-12-2025 Chronic Other screening for suspected conditions (not mental disorders or infectious disease) (8 sources) Encounter for screening for malignant neoplasm of prostate; Translations: [Patient encounter status] Onset: 02-05-2023 Episodic Comment on above: Problem List clean-u p per request of Phys. 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] Onset: 01-04-2024 07-05-2024 Chronic Comment on above: Echo: LVEF 65%, ALFONSO, dilated RV, RVSP 39 06/2024 CTA: extensive, B/L thromboembolism w/ R>L, right heart strain w/ enlargement of RV - 12/31/23Echo: LVEF 65%, ALFONSO, severely dilated RV w/ decreased function, RVSP 39 06/2024Echo: LVEF 70%, ALFONSO, RV dilated/reduced function, Ao root 4.2cm - 05/2025,CTA: no PE, prominent pulmonary trunk, pulm HTN - 05/2025 Pulmonary heart disease (6 sources) Other pulmonary embolism without acute cor pulmonale; Translations: [Pulmonary embolism] Onset: 01-01-2024 02-24-2024 Episodic Comment on above: B/L PE - 12/2023 B/L PE - 12/2023,CTA: extensive, B/L thromboembolism w/ R>L, right heart strain w/ enlargement of RV - 12/31/23Echo: LVEF 65%, ALFONSO, severely dilated RV w/ decreased function, RVSP 39 06/2024 B/L PE - 12/2023,CTA: extensive, B/L thromboembolism w/ R>L, right heart strain w/ enlargement of RV - 12/31/23Echo: LVEF 65%, ALFONSO, severely dilated RV w/ decreased function, RVSP 39 - 06/2024Echo: LVEF 70%, ALFONSO, RV dilated/reduced function, Ao root 4.2cm - 05/2025,CTA: no PE, prominent pulmonary trunk, pulm HTN - 05/2025 Residual codes; unclassified (5 sources) Obstructive sleep apnea syndrome; Translations: [Obstructive sleep apnea (adult) (pediatric)] 10-04-2024 Chronic Comment on above: AHI 29 w/ Psat 72% Residual codes; unclassified (2 sources) Hypersomnia; Translations: [Hypersomnia, unspecified] 10-04-2024 Chronic Residual codes; unclassified (1 source) Obstructive sleep apnea (adult) (pediatric); Translations: [Obstructive sleep apnea (adult)(pediatric)] 04-12-2025 Chronic Rheumatoid arthritis and related disease (13 sources) Ankylosing spondylitis; Translations: [Ankylosing spondylitis of thoracolumbar region] Chronic Spondylosis; intervertebral disc disorders; other back problems (20 sources) Cervical spondylosis; Translations: [Spondylosis without myelopathy or radiculopathy, cervical region] Chronic Unclassified (1 source) Low back pain, unspecified; Translations: [Low back pain, unspecified] Onset: 08-09-2023 Results Test Name Value Interpretation Reference Range Facility Hemoglobin [Mass/volume] in BloodOrdered By: Semaj Avery on 06-27-2025 Hemoglobin (Bld) [Mass/Vol] 15.4 g/dL 14.0-18.0 [facility] Basic Metab w/rfx MGon Anion gap [Moles/Vol] 8 mmol/L Low 9-17 [facility] Comment on above: Performed By: #### B MPX, CDP ####[facility] [address] [place], [place] [id number] Lab Director: Rafa Prieto MD Calcium [Mass/Vol] 7.9 mg/dL Low 8.6-10.4 [facility] Comment on above: Performed By: #### B MPX, CDP ####[facility] [address] [place], [place] [id number] lab Director: Rafa Prieto MD Chloride [Moles/Vol] 97 mmol/L Low 98-107 [facility] Comment on above: Performed By: #### B MPX, CDP ####[facility] [address] [place] [address] Lab Director: Rafa Prieto MD CO2 [Moles/Vol] 25 mmol/L Normal 20-31 [facility] Comment on above: Performed By: #### B MPX, CDP ####[facility] [address] [place] [address] Lab Director: Rafa Prieto MD Creatinine [Mass/Vol] 0.6 mg/dL Low 0.7-1.2 [facility] Comment on above: Performed By: #### B MPX, CDP ####[address] [place] [address] Lab Director: Rafa Prieto MD GFR/1.73 sq M.predicted among non-blacks MDRD (S/P/Bld) [Vol rate/Area] mL/min/{1.73_m2} Normal >60 [facility] Comment on above: Result Comment: [...] secretion. Performed By: #### B MPX, CDP ####[facility] [address] [place] [address] Lab Director: Rafa Prieto MD Glucose [Mass/Vol] 122 mg/dL High 70-99 [facility] Comment on above: Performed By: #### B MPX, CDP ####[facility] [address] [place] [address] Lab Director: Rafa Prieto MD Potassium [Moles/Vol] 3.9 mmol/L Normal 3.7-5.3 [facility] Comment on above: Performed By: #### B MPX, CDP ####[facility] [address] [place], [place] [address])[phone] Director: Rafa Prieto MD Sodium [Moles/Vol] 130 mmol/L Low 135-144 [facility] Comment on above: Performed By: #### B MPX, CDP ####[facility] [address] [place], [place] [address])[phone] Director: Rafa Prieto MD Urea nitrogen [Mass/Vol] 10 mg/dL Normal 6-20 [facility] Comment on above: Performed By: #### B MPX, CDP ####[facility] [address] [place] [address])[phone] Director: Rafa Prieto MD CBC with Diffon 01-06-2024 Abs. Basophil 0.04 k/uL Normal 0.00-0.20 [facility] Comment on above: Performed By: #### H EPXA, PTT #### [facility] [employer] [address] [place] [id number] Ase Master Mechanic: Rafa Prieto MD Abs.Imm.Granulocyte 0.03 k/uL Normal 0.00-0.30 [facility] Comment on above: Performed By: #### H EPXA, PTT #### [facility] [employer] [address] [place] [address] Ase Master Mechanic: Rafa Prieto MD Abs.Neutrophil (Seg) 5.00 k/uL Normal 1.50-8.10 [facility] Comment on above: Performed By: #### H EPXA, PTT #### [facility] [facility] [place] [address] Ase Master Mechanic: Rafa Prieto MD Basophils/100 WBC (Bld) 1 % Normal 0-2 [facility] Comment on above: Performed By: #### H EPXA, PTT #### [facility] [employer] [address] [place] [id number] Ase Master Mechanic: Rafa Prieto MD Eosinophils (Bld) [#/Vol] 0.38 10*3/uL Normal 0.00-0.44 [facility] Comment on above: Performed By: #### H EPXA, PTT #### [facility] [employer] [address] [place] [id number] Ase Master Mechanic: Rafa Prieto MD Eosinophils/100 WBC (Bld) 5 % High 1-4 [facility] Comment on above: Performed By: #### H EPXA, PTT #### [facility] [employer] [address] [place] [address] Ase Master Mechanic: Rafa Prieto MD Erythrocyte distribution width (RBC) [Ratio] 16.5 % High 11.8-14.4 [facility] Comment on above: Performed By: #### H EPXA, PTT #### [facility] [address] [place] [phone] Ase Master Mechanic: Rafa Prieto MD Hematocrit (Bld) [Volume fraction] 37.0 % Low 40.7-50.3 [facility] Comment on above: Performed By: #### H EPXA, PTT #### [facility] [employer] [address] [place] [address] Ase Master Mechanic: Rafa Prieto MD Hemoglobin (Bld) [Mass/Vol] 10.7 g/dL Low 13.0-17.0 [facility] Comment on above: Performed By: #### H EPXA, PTT #### [facility] [employer] [address] [place] [id number] Ase Master Mechanic: Rafa Prieto MD Immature granulocytes/100 WBC (Bld) 0 % Normal 0 [facility] Comment on above: Performed By: #### H EPXA, PTT #### [address] [address] Ase Master Mechanic: Rafa Prieto MD Lymphocytes (Bld) [#/Vol] 1.55 10*3/uL Normal 1.10-3.70 [facility] Comment on above: Performed By: #### H EPXA, PTT #### [address] [address] Ase Master Mechanic: Rafa Prieto MD Lymphocytes/100 WBC (Bld) 19 % Low 24-43 [facility] Comment on above: Performed By: #### H EPXA, PTT #### [place] [address] Ase Master Mechanic: Rafa Prieto MD MCH (RBC) [Entitic mass] 24.0 pg Low 25.2-33.5 [facility] Comment on above: Performed By: #### H EPXA, PTT #### [place] [address] Ase Master Mechanic: Rafa Prieto MD MCHC (RBC) [Mass/Vol] 28.9 g/dL Normal 28.4-34.8 [facility] Comment on above: Performed By: #### H EPXA, PTT #### [place] [address] Ase Master Mechanic: Rafa Prieto MD MCV (RBC) [Entitic vol] 83.0 fL Normal 82.6-102.9 [facility] Comment on above: Performed By: #### H EPXA, PTT #### [place] [address] Ase Master Mechanic: Rafa Prieto MD Monocytes (Bld) [#/Vol] 0.99 10*3/uL Normal 0.10-1.20 [facility] Comment on above: Performed By: #### H EPXA, PTT #### [address] [place] [address] Ase Master Mechanic: Rafa Prieto MD Monocytes/100 WBC (Bld) 12 % Normal 3-12 [facility] Comment on above: Performed By: #### H EPXA, PTT #### [address] [address] Ase Master Mechanic: Rafa Prieto MD Neutrophil (Seg) 63 % Normal 36-65 [facility] Comment on above: Performed By: #### H EPXA, PTT #### [facility] [employer] [address] [place] [id number] Ase Master Mechanic: Rafa Prieto MD NRBC Automated 0.0 per 100 WBC Normal 0.0 [facility] Comment on above: Performed By: #### H EPXA, PTT #### [address] [address] Ase Master Mechanic: Rafa Prieto MD Platelet mean volume (Bld) [Entitic vol] 10.8 fL Normal 8.1-13.5 [facility] Comment on above: Performed By: #### H EPXA, PTT #### [address] [address] Ase Master Mechanic: Rafa Prieto MD Platelets (Bld) [#/Vol] 204 10*3/uL Normal 138-453 [facility] Comment on above: Performed By: #### H EPXA, PTT #### [address] [address] Ase Master Mechanic: Rafa Prieto MD RBC (Bld) [#/Vol] 4.46 10*6/uL Normal 4.21-5.77 [facility] Comment on above: Performed By: #### H EPXA, PTT #### [address] [address] Ase Master Mechanic: Rafa Prieto MD RBC morphology finding Nom (Bld) ANISOCYTOSIS PRESENT Normal [facility] Comment on above: Performed By: #### H EPXA, PTT #### [facility] [employer] [facility] [place] [address] Ase Master Mechanic: Rafa Prieto MD WBC (Bld) [#/Vol] 8.0 10*3/uL Normal 3.5-11.3 [facility] Comment on above: Performed By: #### H EPXA, PTT #### [facility] [employer] [address] [place] [address] Ase Master Mechanic: Rafa Prieto MD Cult,Urineon 01-06-2024 Cult,Urine Specimen Description .CLEAN CATCH URINE Culture NO GROWTH Report Status FINAL 01/06/2024 Normal [facility] Comment on above: Performed By: #### U RC #### [address] [address] Ase Master Mechanic: Rafa Prieto MD Glucose,Whole Bloodon 2023 Glucose [Mass/Vol] 174 mg/dL High 75-110 [facility] Glucose [Mass/Vol] 192 mg/dL High 75-110 [facility] Glucose [Mass/Vol] 119 mg/dL High 75-110 [facility] Heparin Anti-Xaon 01-06-2024 Heparin Anti-Xa 0.41 IU/L Normal [facility] Comment on above: Performed By: #### H EPXA ####[facility] [address] [place] [address] Lab Director: Rafa Prieto MD Basic Metab w/rfx MGon 01-05 Anion gap [Moles/Vol] 11 mmol/L Normal 9-17 [facility] Comment on above: Performed By: #### U RC #### [facility] [employer] [address] [place] [address] Ase Master Mechanic: Rafa Prieto MD Calcium [Mass/Vol] 7.9 mg/dL Low 8.6-10.4 [facility] Comment on above: Performed By: #### U RC #### [address] [address] Ase Master Mechanic: Rafa Prieto MD Chloride [Moles/Vol] 99 mmol/L Normal 98-107 [facility] Comment on above: Performed By: #### U RC #### [address] [address] Ase Master Mechanic: Rafa Prieto MD CO2 [Moles/Vol] 24 mmol/L Normal 20-31 [facility] Comment on above: Performed By: #### U RC #### [address] [address] Ase Master Mechanic: Rafa Prieto MD Creatinine [Mass/Vol] 0.6 mg/dL Low 0.7-1.2 [facility] Comment on above: Performed By: #### U RC #### [address] [address] Ase Master Mechanic: Rafa Prieto MD GFR/1.73 sq M.predicted among non-blacks MDRD (S/P/Bld) [Vol rate/Area] mL/min/{1.73_m2} Normal >60 [facility] Comment on above: Result Comment: [...] secretion. Performed By: #### U RC #### [address] [address] Ase Master Mechanic: Rafa Prieto MD Glucose [Mass/Vol] 97 mg/dL Normal 70-99 [facility] Comment on above: Performed By: #### U RC #### [address] [address] Ase Master Mechanic: Rafa Prieto MD Potassium [Moles/Vol] 4.3 mmol/L Normal 3.7-5.3 [facility] Comment on above: Performed By: #### U RC #### [address] [address] Ase Master Mechanic: Rafa Prieto MD Sodium [Moles/Vol] 134 mmol/L Low 135-144 [facility] Comment on above: Performed By: #### U RC #### [address] [address] Ase Master Mechanic: Rafa Prieto MD Urea nitrogen [Mass/Vol] 10 mg/dL Normal 6-20 [facility] Comment on above: Performed By: #### U RC #### [address] [address] Ase Master Mechanic: Rafa Prieto MD CBC with Diffon 01-05-2024 Abs. Basophil 0.00 k/uL Normal 0.0-0.2 [facility] Comment on above: Performed By: #### U RC #### [address] [address] Ase Master Mechanic: Rafa Prieto MD Abs.Imm.Granulocyte 0.00 k/uL Normal 0.00-0.30 [facility] Comment on above: Performed By: #### U RC #### [address] [address] Ase Master Mechanic: Rafa Prieto MD Abs.Neutrophil (Seg) 4.99 k/uL Normal 1.8-7.7 [facility] Comment on above: Performed By: #### U RC #### [address] [address] Ase Master Mechanic: Rafa Prieto MD Basophils/100 WBC (Bld) 0 % Normal 0-2 [facility] Comment on above: Performed By: #### U RC #### [address] [address] Ase Master Mechanic: Rafa Prieto MD Eosinophils (Bld) [#/Vol] 0.39 10*3/uL Normal 0.0-0.4 [facility] Comment on above: Performed By: #### U RC #### [address] [address] Ase Master Mechanic: Rafa Prieto MD Eosinophils/100 WBC (Bld) 5 % High 1-4 [facility] Comment on above: Performed By: #### U RC #### [address] [address] Ase Master Mechanic: Rafa Prieto MD Immature granulocytes/100 WBC (Bld) 0 % Normal 0 [facility] Comment on above: Performed By: #### U RC #### [address] [address] Ase Master Mechanic: Rafa Prieto MD Lymphocytes (Bld) [#/Vol] 1.48 10*3/uL Normal 1.0-4.8 [facility] Comment on above: Performed By: #### U RC #### [address] [address] Ase Master Mechanic: Rafa Prieto MD Lymphocytes/100 WBC (Bld) 19 % Low 24-44 [facility] Comment on above: Performed By: #### U RC #### [address] [address] Ase Master Mechanic: Rafa Prieto MD Monocytes (Bld) [#/Vol] 0.94 10*3/uL High 0.1-0.8 [facility] Comment on above: Performed By: #### U RC #### [address] [address] Ase Master Mechanic: Rafa Prieto MD Monocytes/100 WBC (Bld) 12 % High 1-7 [facility] Comment on above: Performed By: #### U RC #### [address] [address] Ase Master Mechanic: Rafa Prieto MD Morphology Rancho (Bld) [Interp] ANISOCYTOSIS PRESENT Normal [facility] Comment on above: Performed By: #### U RC #### [address] [address] Ase Master Mechanic: Rafa Prieto MD Neutrophil (Seg) 64 % Normal 36-66 [facility] Comment on above: Performed By: #### U RC #### [address] [address] Ase Master Mechanic: Rafa Prieto MD Erythrocyte distribution width (RBC) [Ratio] 16.6 % High 11.8-14.4 [facility] Comment on above: Performed By: #### U RC #### [address] [address] Ase Master Mechanic: Rafa Prieto MD Hematocrit (Bld) [Volume fraction] 38.6 % Low 40.7-50.3 [facility] Comment on above: Performed By: #### U RC #### [address] [address] Ase Master Mechanic: Rafa Prieto MD Hemoglobin (Bld) [Mass/Vol] 10.9 g/dL Low 13.0-17.0 [facility] Comment on above: Performed By: #### U RC #### [address] [address] Ase Master Mechanic: Rafa Prieto MD MCH (RBC) [Entitic mass] 24.0 pg Low 25.2-33.5 [facility] Comment on above: Performed By: #### U RC #### [address] [address] Ase Master Mechanic: Rafa Prieto MD MCHC (RBC) [Mass/Vol] 28.2 g/dL Low 28.4-34.8 [facility] Comment on above: Result Comment: TEST CONFIRMED Performed By: #### U RC #### [address] [address] Ase Master Mechanic: Rafa Prieto MD MCV (RBC) [Entitic vol] 85.0 fL Normal 82.6-102.9 [facility] Comment on above: Performed By: #### U RC #### [address] [address] Ase Master Mechanic: Rafa Prieto MD NRBC Automated 0.0 per 100 WBC Normal 0.0 [facility] Comment on above: Performed By: #### U RC #### [address] [address] Ase Master Mechanic: Rafa Prieto MD Platelet mean volume (Bld) [Entitic vol] 11.9 fL Normal 8.1-13.5 [facility] Comment on above: Performed By: #### U RC #### [address] [address] Ase Master Mechanic: Rafa Prieto MD Platelets (Bld) [#/Vol] 192 10*3/uL Normal 138-453 [facility] Comment on above: Performed By: #### U RC #### [address] [address] Ase Master Mechanic: Rafa Prieto MD RBC (Bld) [#/Vol] 4.54 10*6/uL Normal 4.21-5.77 [facility] Comment on above: Performed By: #### U RC #### [address] [place] [address] Ase Master Mechanic: Rafa Prieto MD WBC (Bld) [#/Vol] 7.8 10*3/uL Normal 3.5-11.3 [facility] Comment on above: Performed By: #### U RC #### [facility] [address] [place] [address] Ase Master Mechanic: Rafa Prieto MD Glucose,Whole Bloodon 2023 Glucose [Mass/Vol] 147 mg/dL High 75-110 [facility] Glucose [Mass/Vol] 178 mg/dL High 75-110 [facility] Glucose [Mass/Vol] 158 mg/dL High 75-110 [facility] Glucose [Mass/Vol] 106 mg/dL Normal -110 [facility] Heparin Anti-Xaon 01-05-2024 Heparin Anti-Xa 0.41 IU/L Normal [facility] Comment on above: Performed By: #### U RC #### [facility] [employer] [address] [place] [address] Ase Master Mechanic: Rafa Prieto MD Basic Metab w/rfx MGon 01-049 Anion gap [Moles/Vol] 8 mmol/L Low 9-17 [facility] Comment on above: Performed By: #### H EPXA, PTT #### [facility] [address] [place] [address] Ase Master Mechanic: Rafa Prieto MD Calcium [Mass/Vol] 7.7 mg/dL Low 8.6-10.4 [facility] Comment on above: Performed By: #### H EPXA, PTT #### [employer] [address] [place] [address] Ase Master Mechanic: Rafa Prieto MD Chloride [Moles/Vol] 98 mmol/L Normal 98-107 [facility] Comment on above: Performed By: #### H EPXA, PTT #### [employer] [facility] [place] [address] Ase Master Mechanic: Rafa Prieto MD CO2 [Moles/Vol] 26 mmol/L Normal 20-31 [facility] Comment on above: Performed By: #### H EPXA, PTT #### [facility] [address] [place] [address] Ase Master Mechanic: Rafa Prieto MD Creatinine [Mass/Vol] 0.6 mg/dL Low 0.7-1.2 [facility] Comment on above: Performed By: #### H EPXA, PTT #### [employer] [employer] [address] [place] [address] Ase Master Mechanic: Rafa Prieto MD GFR/1.73 sq M.predicted among non-blacks MDRD (S/P/Bld) [Vol rate/Area] mL/min/{1.73_m2} Normal >60 [facility] Comment on above: Result Comment: [...] Performed By: #### H EPXA, PTT #### [employer] [employer] [address] [place] [address] Ase Master Mechanic: Rafa Prieto MD Glucose [Mass/Vol] 94 mg/dL Normal 70-99 [facility] Comment on above: Performed By: #### H EPXA, PTT #### [facility] [employer] [address] [place] [address] Ase Master Mechanic: Rafa Prieto MD Potassium [Moles/Vol] 3.9 mmol/L Normal 3.7-5.3 [facility] Comment on above: Performed By: #### H EPXA, PTT #### [employer] [employer] [address] [place] [address] Ase Master Mechanic: Rafa Prieto MD Sodium [Moles/Vol] 132 mmol/L Low 135-144 [facility] Comment on above: Performed By: #### H EPXA, PTT #### [facility] [employer] [address] [place] [address] Ase Master Mechanic: Rafa Prieto MD Urea nitrogen [Mass/Vol] 12 mg/dL Normal 6-20 [facility] Comment on above: Performed By: #### H EPXA, PTT #### [facility] [employer] [address] [place] [address] Ase Master Mechanic: Rafa Prieto MD CBC with Diffon 01-04-2024 Abs. Basophil 0.04 k/uL Normal 0.00-0.20 [facility] Comment on above: Performed By: #### H EPXA, PTT #### [facility] [employer] [address] [place] [address] Ase Master Mechanic: Rafa Prieto MD Abs.Imm.Granulocyte 0.04 k/uL Normal 0.00-0.30 [facility] Comment on above: Performed By: #### H EPXA, PTT #### [facility] [employer] [address] [place] [address] Ase Master Mechanic: Rafa Prieto MD Abs.Neutrophil (Seg) 5.71 k/uL Normal 1.50-8.10 [facility] Comment on above: Performed By: #### H EPXA, PTT #### [facility] [employer] [address] [place] [address] Ase Master Mechanic: Rafa Prieto MD Basophils/100 WBC (Bld) 0 % Normal 0-2 [facility] Comment on above: Performed By: #### H EPXA, PTT #### [facility] [employer] [address] [place] [address] Ase Master Mechanic: Rafa Prieto MD Eosinophils (Bld) [#/Vol] 0.30 10*3/uL Normal 0.00-0.44 [facility] Comment on above: Performed By: #### H EPXA, PTT #### [address] [address] Ase Master Mechanic: Rafa Prieto MD Eosinophils/100 WBC (Bld) 3 % Normal 1-4 [facility] Comment on above: Performed By: #### H EPXA, PTT #### [facility] [employer] [address] [place] [address] Ase Master Mechanic: Rafa Prieto MD Erythrocyte distribution width (RBC) [Ratio] 16.1 % High 11.8-14.4 [facility] Comment on above: Performed By: #### H EPXA, PTT #### [address] [address] Ase Master Mechanic: Rafa Prieto MD Hematocrit (Bld) [Volume fraction] 36.0 % Low 40.7-50.3 [facility] Comment on above: Performed By: #### H EPXA, PTT #### [address] [address] Ase Master Mechanic: Rafa Prieto MD Hemoglobin (Bld) [Mass/Vol] 10.5 g/dL Low 13.0-17.0 [facility] Comment on above: Performed By: #### H EPXA, PTT #### [address] [address] Ase Master Mechanic: Rafa Prieto MD Immature granulocytes/100 WBC (Bld) 0 % Normal 0 [facility] Comment on above: Performed By: #### H EPXA, PTT #### [facility] [employer] [address] [place] [address] Ase Master Mechanic: Rafa Prieto MD Lymphocytes (Bld) [#/Vol] 1.76 10*3/uL Normal 1.10-3.70 [facility] Comment on above: Performed By: #### H EPXA, PTT #### [address] [address] Ase Master Mechanic: Rafa Prieto MD Lymphocytes/100 WBC (Bld) 20 % Low 24-43 [facility] Comment on above: Performed By: #### H EPXA, PTT #### [address] [address] Ase Master Mechanic: Rafa Prieto MD MCH (RBC) [Entitic mass] 24.1 pg Low 25.2-33.5 [facility] Comment on above: Performed By: #### H EPXA, PTT #### [address] [address] Ase Master Mechanic: Rafa Prieto MD MCHC (RBC) [Mass/Vol] 29.2 g/dL Normal 28.4-34.8 [facility] Comment on above: Performed By: #### H EPXA, PTT #### [address] [address] Ase Master Mechanic: Rafa Prieto MD MCV (RBC) [Entitic vol] 82.8 fL Normal 82.6-102.9 [facility] Comment on above: Performed By: #### H EPXA, PTT #### [address] [address] Ase Master Mechanic: Rafa Prieto MD Monocytes (Bld) [#/Vol] 1.12 10*3/uL Normal 0.10-1.20 [facility] Comment on above: Performed By: #### H EPXA, PTT #### [address] [address] Ase Master Mechanic: Rafa Prieto MD Monocytes/100 WBC (Bld) 13 % High 3-12 [facility] Comment on above: Performed By: #### H EPXA, PTT #### [facility] [employer] [address] [place] [address] Ase Master Mechanic: Rafa Prieto MD Neutrophil (Seg) 64 % Normal 36-65 [facility] Comment on above: Performed By: #### H EPXA, PTT #### [facility] [employer] [address] [place] [address] Ase Master Mechanic: Rafa Prieto MD NRBC Automated 0.0 per 100 WBC Normal 0.0 [facility] Comment on above: Performed By: #### H EPXA, PTT #### [facility] [employer] [address] [place] [address] Ase Master Mechanic: Rafa Prieto MD Platelet mean volume (Bld) [Entitic vol] 11.1 fL Normal 8.1-13.5 [facility] Comment on above: Performed By: #### H EPXA, PTT #### [facility] [employer] [address] [place] [address] Ase Master Mechanic: Rafa Prieto MD Platelets (Bld) [#/Vol] 207 10*3/uL Normal 138-453 [facility] Comment on above: Performed By: #### H EPXA, PTT #### [address] [address] Ase Master Mechanic: Rafa Prieto MD RBC (Bld) [#/Vol] 4.35 10*6/uL Normal 4.21-5.77 [facility] Comment on above: Performed By: #### H EPXA, PTT #### [address] [address] Ase Master Mechanic: Rafa Prieto MD RBC morphology finding Nom (Bld) ANISOCYTOSIS PRESENT Normal [facility] Comment on above: Performed By: #### H EPXA, PTT #### [facility] [address] [place] [address] Ase Master Mechanic: Rafa Prieto MD WBC (Bld) [#/Vol] 9.0 10*3/uL Normal 3.5-11.3 [facility] Comment on above: Performed By: #### H EPXA, PTT #### [facility] [address] [place] [address] Ase Master Mechanic: Rafa Prieto MD Glucose,Whole Bloodon 2023 Glucose [Mass/Vol] 143 mg/dL High 75-110 [facility] Glucose [Mass/Vol] 150 mg/dL High 75-110 [facility] Hemoglobin A1Con 01-04-2024 Glucose [Mass/Vol] 140 mg/dL Normal [facility] Comment on above: Result Comment: The ADA and AACC recommend providing the estimated average glucose result to permit better patient understanding of their HBA1c result. Performed By: #### H EPXA, PTT #### [facility] [address] [place] [address] Ase Master Mechanic: Rafa Prieto MD HbA1c (Bld) [Mass fraction] 6.5 % High 4.0-6.0 [facility] Comment on above: Performed By: #### H EPXA, PTT #### [facility] [address] [place] [address] Ase Master Mechanic: Rafa Prieto MD Heparin Anti-Xaon 6 Heparin Anti-Xa 0.53 IU/L Normal [facility] Comment on above: Performed By: #### T ROPI #### [facility] [address] [place] [address] Ase Master Mechanic: Rafa Prieto MD Heparin Anti-Xa 0.65 IU/L Normal [facility] Comment on above: Performed By: #### U RC #### [facility] [address] [place] [address] Ase Master Mechanic: Rafa Prieto MD Heparin Anti-Xa 0.29 IU/L Normal [facility] Comment on above: Performed By: #### H EPXA, PTT #### [facility] [address] [place] [address] Ase Master Mechanic: Rafa Prieto MD Basic Metab w/rfx MGon 01-03 Anion gap [Moles/Vol] 8 mmol/L Low 9-17 [facility] Comment on above: Performed By: #### H EPXA, PTT #### [facility] [address] [place] [address] Ase Master Mechanic: Rafa Prieto MD Calcium [Mass/Vol] 7.8 mg/dL Low 8.6-10.4 [facility] Comment on above: Performed By: #### H EPXA, PTT #### [facility] [address] [place] [address] Ase Master Mechanic: Rafa Prieto MD Chloride [Moles/Vol] 94 mmol/L Low 98-107 [facility] Comment on above: Performed By: #### H EPXA, PTT #### [facility] [address] [place] [address] Ase Master Mechanic: Rafa Prieto MD CO2 [Moles/Vol] 25 mmol/L Normal 20-31 [facility] Comment on above: Performed By: #### H EPXA, PTT #### [facility] [address] [place] [address] Ase Master Mechanic: Rafa Prieto MD Creatinine [Mass/Vol] 0.6 mg/dL Low 0.7-1.2 [facility] Comment on above: Performed By: #### H EPXA, PTT #### [facility] [address] [place] [address] Ase Master Mechanic: Rafa Prieto MD GFR/1.73 sq M.predicted among non-blacks MDRD (S/P/Bld) [Vol rate/Area] mL/min/{1.73_m2} Normal >60 [facility] Comment on above: Result Comment: [...] #### H EPXA, PTT #### [facility] [address] [place] [address] Ase Master Mechanic: Rafa Prieto MD Glucose [Mass/Vol] 108 mg/dL High 70-99 [facility] Comment on above: Performed By: #### H EPXA, PTT #### [facility] [address] [place] [address] Ase Master Mechanic: Rafa Prieto MD Potassium [Moles/Vol] 3.7 mmol/L Normal 3.7-5.3 [facility] Comment on above: Performed By: #### H EPXA, PTT #### [employer] [employer] [address] [place] [address] Ase Master Mechanic: Rafa Prieto MD Sodium [Moles/Vol] 127 mmol/L Low 135-144 [facility] Comment on above: Performed By: #### H EPXA, PTT #### [employer] [employer] [address] [place] [address] Ase Master Mechanic: Rafa Prieto MD Urea nitrogen [Mass/Vol] 15 mg/dL Normal 6-20 [facility] Comment on above: Performed By: #### H EPXA, PTT #### [employer] [address] [place] [address] Ase Master Mechanic: Rafa Prieto MD Brain Natri. Peptideon 01-03 Natriuretic peptide B (Bld) [Mass/Vol] 1253 pg/mL High <300 [facility] Comment on above: Result Comment: An age-independent cutoff point of 300 pg/ml has a 98% negative predictive value excluding acute heart failure. Performed By: #### H EPXA, BNP, TROPI ####[facility] [address] [place] [id number])[phone] Director: Rafa Prieto MD CBC with Diffon 01-03-2024 Abs. Basophil 0.05 k/uL Normal 0.00-0.20 [facility] Comment on above: Performed By: #### H EPXA, PTT #### [employer] [address] [place] [address] Ase Master Mechanic: Rafa Prieto MD Abs.Imm.Granulocyte <0.03 Normal 0.00-0.30 [facility] Comment on above: Performed By: #### H EPXA, PTT #### [facility] [address] [place] [address] Ase Master Mechanic: Rafa Prieto MD Abs.Neutrophil (Seg) 4.63 k/uL Normal 1.50-8.10 [facility] Comment on above: Performed By: #### H EPXA, PTT #### [facility] [address] [place] [address] Ase Master Mechanic: Rafa Prieto MD Basophils/100 WBC (Bld) 1 % Normal 0-2 [facility] Comment on above: Performed By: #### H EPXA, PTT #### [employer] [address] [place] [address] Ase Master Mechanic: Rafa Prieto MD Eosinophils (Bld) [#/Vol] 0.23 10*3/uL Normal 0.00-0.44 [facility] Comment on above: Performed By: #### H EPXA, PTT #### [employer] [address] [place] [address] Ase Master Mechanic: Rafa Prieto MD Eosinophils/100 WBC (Bld) 3 % Normal 1-4 [facility] Comment on above: Performed By: #### H EPXA, PTT #### [facility] [address] [place] [address] Ase Master Mechanic: Rafa Prieto MD Erythrocyte distribution width (RBC) [Ratio] 16.2 % High 11.8-14.4 [facility] Comment on above: Performed By: #### H EPXA, PTT #### [facility] [address] [place] [address] Ase Master Mechanic: Rafa Prieto MD Hematocrit (Bld) [Volume fraction] 37.7 % Low 40.7-50.3 [facility] Comment on above: Performed By: #### H EPXA, PTT #### [facility] [address] [place] [address] Ase Master Mechanic: Rafa Prieto MD Hemoglobin (Bld) [Mass/Vol] 10.9 g/dL Low 13.0-17.0 [facility] Comment on above: Performed By: #### H EPXA, PTT #### [facility] [address] [place] [address] Ase Master Mechanic: Rafa Prieto MD Immature granulocytes/100 WBC (Bld) 0 % Normal 0 [facility] Comment on above: Performed By: #### H EPXA, PTT #### [facility] [employer] [address] [place] [address] Ase Master Mechanic: Rafa Prieto MD Lymphocytes (Bld) [#/Vol] 1.96 10*3/uL Normal 1.10-3.70 [facility] Comment on above: Performed By: #### H EPXA, PTT #### [facility] [address] [place] [address] 86677 Ase Master Mechanic: Rafa Prieto MD Lymphocytes/100 WBC (Bld) 24 % Normal 24-43 [facility] Comment on above: Performed By: #### H EPXA, PTT #### [employer] [address] [place] [address] 69[address] Ase Master Mechanic: Rafa Prieto MD MCH (RBC) [Entitic mass] 24.2 pg Low 25.2-33.5 [facility] Comment on above: Performed By: #### H EPXA, PTT #### [facility] [address] [place] [address] 18648 Ase Master Mechanic: Rafa Prieto MD MCHC (RBC) [Mass/Vol] 28.9 g/dL Normal 28.4-34.8 [facility] Comment on above: Performed By: #### H EPXA, PTT #### [facility] [employer] [address] [place] [address] 92846 Ase Master Mechanic: Rafa Prieto MD MCV (RBC) [Entitic vol] 83.6 fL Normal 82.6-102.9 [facility] Comment on above: Performed By: #### H EPXA, PTT #### [facility] [employer] [address] [place] [address] 70046 Ase Master Mechanic: Rafa Prieto MD Monocytes (Bld) [#/Vol] 1.23 10*3/uL High 0.10-1.20 [facility] Comment on above: Performed By: #### H EPXA, PTT #### [address] [address] Ase Master Mechanic: Rafa Prieto MD Monocytes/100 WBC (Bld) 15 % High 3-12 [facility] Comment on above: Performed By: #### H EPXA, PTT #### [facility] [employer] [address] [place] [address] 01583 Ase Master Mechanic: Rafa Prieto MD Neutrophil (Seg) 57 % Normal 36-65 [facility] Comment on above: Performed By: #### H EPXA, PTT #### [facility] [employer] [address] [place] [address] 9[address]11 Ase Master Mechanic: Rafa Prieto MD NRBC Automated 0.0 per 100 WBC Normal 0.0 [facility] Comment on above: Performed By: #### H EPXA, PTT #### [address] [address] Ase Master Mechanic: Rafa Prieto MD Platelet mean volume (Bld) [Entitic vol] 10.8 fL Normal 8.1-13.5 [facility] Comment on above: Performed By: #### H EPXA, PTT #### [address] [address] Ase Master Mechanic: Rafa Prieto MD Platelets (Bld) [#/Vol] 194 10*3/uL Normal 138-453 [facility] Comment on above: Performed By: #### H EPXA, PTT #### [address] [address] Ase Master Mechanic: Rafa Prieto MD RBC (Bld) [#/Vol] 4.51 10*6/uL Normal 4.21-5.77 [facility] Comment on above: Performed By: #### H EPXA, PTT #### [address] [address] Ase Master Mechanic: Rafa Prieto MD RBC morphology finding Nom (Bld) ANISOCYTOSIS PRESENT Normal [facility] Comment on above: Performed By: #### H EPXA, PTT #### [address] [address] Ase Master Mechanic: Rafa Prieto MD WBC (Bld) [#/Vol] 8.1 10*3/uL Normal 3.5-11.3 [facility] Comment on above: Performed By: #### H EPXA, PTT #### [facility] [employer] [address] [place] [address] 94[address] Ase Master Mechanic: Rafa Prieto MD Glucose,Whole Bloodon 2023 Glucose [Mass/Vol] 143 mg/dL High 75-110 [facility] Glucose [Mass/Vol] 107 mg/dL Normal 75-110 [facility] Heparin Anti-Xaon 01-03-2024 Heparin Anti-Xa 0.48 IU/L Normal [facility] Comment on above: Performed By: #### H EPXA, BNP, TROPI ####[facility] [address] [place] [address] Lab Director: Rafa Prieto MD Osmolalityon 01-03-2024 Osmolality [Osmolality] 280 mosm/kg Normal 275-295 [facility] Comment on above: Performed By: #### O SMO, REJEC ####[address] [address] Lab Director: Rafa Prieto MD Osmolality, Urineon 01-03-20 24 Osmolality - Urine 293 mOsm/kg Normal 80-1300 [facility] Comment on above: Performed By: #### U RC #### [address] [address] Ase Master Mechanic: Rafa Prieto MD Sodium, Random Uron 01-03-20 24 Na Conc. Urine <20 Normal [facility] Comment on above: Result Comment: No n ormal range established. Performed By: #### U RC #### [address] [address] Ase Master Mechanic: Rafa Prieto MD Specimen Rejectionon 024 Reason for rejection Unable to perform testing: Specimen quantity not sufficient. Normal [facility] Comment on above: Performed By: #### O SMO, REJEC ####[facility] [address] [place] [address] Lab Director: Rafa Prieto MD Source of sample .BLOOD Normal [facility] Comment on above: Performed By: #### O SMO, REJEC ####[facility] [address] [place] [address] Lab Director: Rafa Prieto MD Test ordered BNP TROPI Normal [facility] Comment on above: Performed By: #### O SMO, REJEC ####[facility] [address] [place] [address] Lab Director: Rafa Prieto MD Troponinon 01-03-2024 Troponin, High Sens 57 ng/L Critically high 0-22 [facility] Comment on above: Result Comment: High Sensitivity Troponin values cannot be compared with other Troponin methodologies. Performed By: #### U RC #### [facility] [address] [place] [address] Ase Master Mechanic: Rafa Prieto MD XR CHEST PORTABLEon 01-03-20 [...] Samir Infante MD 01/03/24 Final result Normal [facility] Arterial Bld Gas,POCon 01-02 Rao Test Positive Normal [facility] HCO3 (Bld) [Moles/Vol] 30.0 mmol/L High 21.0-28.0 [facility] Oxygen saturation in Blood 93.2 % Low 94.0-98.0 [facility] Patient Temp. 37.7 Normal [facility] pCO2, Arterial 53.1 mm Hg High 35.0-48.0 [facility] pCO2, Temp Adjust 54.7 mm Hg Normal [facility] pH, Arterial 7.361 Normal 7.350-7.450 [facility] pH, Temp Adjust 7.350 Normal [facility] pO2, Arterial 71.8 mm Hg Low 83.0-108.0 [facility] pO2, Temp Adjust 75.2 mm Hg Normal [facility] Positive Base Excess (calc) 3.3 mmol/L High 0.0-3.0 [facility] Site Dra[employer] Left Radial Artery Normal [facility] Basic Metab w/rfx MGon 01-02 Anion gap [Moles/Vol] 9 mmol/L Normal 9-17 [facility] Comment on above: Performed By: #### H EPXA, PTT #### [employer] [address] [place] [address] Ase Master Mechanic: Rafa Prieto MD Calcium [Mass/Vol] 8.0 mg/dL Low 8.6-10.4 [facility] Comment on above: Performed By: #### H EPXA, PTT #### [employer] [address] [place] [address] 09690 Ase Master Mechanic: Rafa Prieto MD Chloride [Moles/Vol] 100 mmol/L Normal 98-107 [facility] Comment on above: Performed By: #### H EPXA, PTT #### [employer] [address] [place] [address] 64644 Ase Master Mechanic: Rafa Prieto MD CO2 [Moles/Vol] 26 mmol/L Normal 20-31 [facility] Comment on above: Performed By: #### H EPXA, PTT #### [employer] [address] [place] [address] 52371 Ase Master Mechanic: Rafa Prieto MD Creatinine [Mass/Vol] 0.7 mg/dL Normal 0.7-1.2 [facility] Comment on above: Performed By: #### H EPXA, PTT #### [employer] [address] [place] [address] 19487 Ase Master Mechanic: Rafa Prieto MD GFR/1.73 sq M.predicted among non-blacks MDRD (S/P/Bld) [Vol rate/Area] mL/min/{1.73_m2} Normal >60 [facility] Comment on above: Result Comment: [...] Performed By: #### H EPXA, PTT #### [facility] [address] [place] [address] Ase Master Mechanic: Rafa Prieto MD Glucose [Mass/Vol] 110 mg/dL High 70-99 [facility] Comment on above: Performed By: #### H EPXA, PTT #### [facility] [address] [place] [address] Ase Master Mechanic: Rafa Prieto MD Potassium [Moles/Vol] 3.9 mmol/L Normal 3.7-5.3 [facility] Comment on above: Performed By: #### H EPXA, PTT #### [facility] [address] [place] [address] Ase Master Mechanic: Rafa Prieto MD Sodium [Moles/Vol] 135 mmol/L Normal 135-144 [facility] Comment on above: Performed By: #### H EPXA, PTT #### [employer] [facility] [address] [place] [address] Ase Master Mechanic: Rafa Prieto MD Urea nitrogen [Mass/Vol] 15 mg/dL Normal 6-20 [facility] Comment on above: Performed By: #### H EPXA, PTT #### [facility] [address] [place] [address] 12595 Ase Master Mechanic: Rafa Prieto MD CBC with Diffon 01-02-2024 Abs. Basophil 0.00 k/uL Normal 0.0-0.2 [facility] Comment on above: Performed By: #### H EPXA, PTT #### [facility] [employer] [address] [place] [address] 35635 Ase Master Mechanic: Rafa Prieto MD Abs.Imm.Granulocyte 0.00 k/uL Normal 0.00-0.30 [facility] Comment on above: Performed By: #### H EPXA, PTT #### [facility] [employer] [address] [place] [address] 46889 Ase Master Mechanic: Rafa Prieto MD Abs.Neutrophil (Seg) 4.48 k/uL Normal 1.8-7.7 [facility] Comment on above: Performed By: #### H EPXA, PTT #### [facility] [employer] [address] [place] [address] 4[address] Ase Master Mechanic: Rafa Prieto MD Basophils/100 WBC (Bld) 0 % Normal 0-2 [facility] Comment on above: Performed By: #### H EPXA, PTT #### [address] [address] Ase Master Mechanic: Rafa Prieto MD Eosinophils (Bld) [#/Vol] 0.08 10*3/uL Normal 0.0-0.4 [facility] Comment on above: Performed By: #### H EPXA, PTT #### [facility] [employer] [address] [place] [address] Ase Master Mechanic: Rafa Prieto MD Eosinophils/100 WBC (Bld) 1 % Normal 1-4 [facility] Comment on above: Performed By: #### H EPXA, PTT #### [facility] [employer] [address] [place] [address] 21408 Ase Master Mechanic: Rafa Prieto MD Immature granulocytes/100 WBC (Bld) 0 % Normal 0 [facility] Comment on above: Performed By: #### H EPXA, PTT #### [facility] [employer] [address] [place] [address] Ase Master Mechanic: Rafa Prieto MD Lymphocytes (Bld) [#/Vol] 1.76 10*3/uL Normal 1.0-4.8 [facility] Comment on above: Performed By: #### H EPXA, PTT #### [facility] [address] [place] [address] 08588 Ase Master Mechanic: Rfaa Prieto MD Lymphocytes/100 WBC (Bld) 22 % Low 24-44 [facility] Comment on above: Performed By: #### H EPXA, PTT #### [facility] [address] [place] [address]15 Ase Master Mechanic: Rafa Prieto MD Monocytes (Bld) [#/Vol] 1.68 10*3/uL High 0.1-0.8 [facility] Comment on above: Performed By: #### H EPXA, PTT #### [facility] [address] [place] [address] 8[address]85 Ase Master Mechanic: Rafa Prieto MD Monocytes/100 WBC (Bld) 21 % High 1-7 [facility] Comment on above: Performed By: #### H EPXA, PTT #### [facility] [address] [place] [address] Ase Master Mechanic: Rafa Prieto MD Morphology Rancho (Bld) [Interp] ANISOCYTOSIS PRESENT Normal [facility] Comment on above: Performed By: #### H EPXA, PTT #### [facility] [address] [place] [address]37 Ase Master Mechanic: Rafa Prieto MD Neutrophil (Seg) 56 % Normal 36-66 [facility] Comment on above: Performed By: #### H EPXA, PTT #### [facility] [address] [place] [address] 06968 Ase Master Mechanic: Rafa Prieto MD Erythrocyte distribution width (RBC) [Ratio] 15.9 % High 11.8-14.4 [facility] Comment on above: Performed By: #### H EPXA, PTT #### [facility] [employer] [address] [place] [address] 66866 Ase Master Mechanic: Rafa Prieto MD Hematocrit (Bld) [Volume fraction] 40.7 % Normal 40.7-50.3 [facility] Comment on above: Performed By: #### H EPXA, PTT #### [address] [address] Ase Master Mechanic: Rafa Prieto MD Hemoglobin (Bld) [Mass/Vol] 11.6 g/dL Low 13.0-17.0 [facility] Comment on above: Performed By: #### H EPXA, PTT #### [address] [address] Ase Master Mechanic: Rafa Prieto MD MCH (RBC) [Entitic mass] 24.0 pg Low 25.2-33.5 [facility] Comment on above: Performed By: #### H EPXA, PTT #### [address] [address] Ase Master Mechanic: Rafa Prieto MD MCHC (RBC) [Mass/Vol] 28.5 g/dL Normal 28.4-34.8 [facility] Comment on above: Performed By: #### H EPXA, PTT #### [address] [address] Ase Master Mechanic: Rafa Prieto MD MCV (RBC) [Entitic vol] 84.1 fL Normal 82.6-102.9 [facility] Comment on above: Performed By: #### H EPXA, PTT #### [address] [address] Ase Master Mechanic: Rafa Prieto MD NRBC Automated 0.0 per 100 WBC Normal 0.0 [facility] Comment on above: Performed By: #### H EPXA, PTT #### [facility] [address] [place] [address] 8[address]68 Ase Master Mechanic: Rafa Prieto MD Platelet mean volume (Bld) [Entitic vol] 11.1 fL Normal 8.1-13.5 [facility] Comment on above: Performed By: #### H EPXA, PTT #### [facility] [address] [place] [address] Ase Master Mechanic: Rafa Prieto MD Platelets (Bld) [#/Vol] 212 10*3/uL Normal 138-453 [facility] Comment on above: Performed By: #### H EPXA, PTT #### [facility] [address] [place] [address] Ase Master Mechanic: Rafa Prieto MD RBC (Bld) [#/Vol] 4.84 10*6/uL Normal 4.21-5.77 [facility] Comment on above: Performed By: #### H EPXA, PTT #### [facility] [address] [place] [address] 11057 Ase Master Mechanic: Rafa Prieto MD WBC (Bld) [#/Vol] 8.0 10*3/uL Normal 3.5-11.3 [facility] Comment on above: Performed By: #### H EPXA, PTT #### [facility] [address] [place] [address] 82894 Ase Master Mechanic: Rafa Prieto MD Glucose (POC)on 01-02-2024 Glucose [Mass/Vol] 116 mg/dL High 74-100 [facility] Glucose,Whole Bloodon 2023 Glucose [Mass/Vol] 165 mg/dL High 75-110 [facility] Glucose [Mass/Vol] 209 mg/dL High 75-110 [facility] Glucose [Mass/Vol] 115 mg/dL High 75-110 [facility] Glucose [Mass/Vol] 78 mg/dL Normal 75-110 [facility] Heparin Anti-Xaon 01-02-2024 Heparin Anti-Xa 0.55 IU/L Normal [facility] Comment on above: Performed By: #### H EPXA, PTT #### [facility] [employer] [address] [place] [address] 8[address]83 Ase Master Mechanic: Rafa Prieto MD Heparin Anti-Xa 0.63 IU/L Normal [facility] Comment on above: Performed By: #### H EPXA ####[facility] [address] [place] [address] Lab Director: Rafa Prieto MD APTTon 01-01-2024 aPTT Coag (Bld) [Time] 123.5 s Critically high 23.0-36.5 [facility] Comment on above: Result Comment: IV Heparin Therapy Range: 66.0-92.0 sec Performed By: #### H EPXA, PTT #### [facility] [employer] [address] [place] [address] 9[address]32 Ase Master Mechanic: Rafa Prieto MD aPTT Coag (Bld) [Time] 82.0 s High 23.0-36.5 [facility] Comment on above: Result Comment: IV Heparin Therapy Range: 66.0-92.0 sec Performed By: #### H EPXA, PTT #### [facility] [employer] [address] [place] [address] 7[address] Ase Master Mechanic: Rafa Prieto MD aPTT Coag (Bld) [Time] 122.3 s Critically high 23.0-36.5 [facility] Comment on above: Result Comment: IV Heparin Therapy Range: 66.0-92.0 sec Performed By: #### T ROPI #### [address] [address] Ase Master Mechanic: Rafa Prieto MD Basic Metab w/rfx MGon 01-01 Creatinine [Mass/Vol] 0.8 mg/dL Normal 0.7-1.2 [facility] Comment on above: Result Comment: ICTE MANSOOR SPECIMEN Performed By: #### B MPX, CDP, TROPI, MG ####[facility] [address] [place] [address] Lab Director: Rafa Prieto MD GFR/1.73 sq M.predicted among non-blacks MDRD (S/P/Bld) [Vol rate/Area] mL/min/{1.73_m2} Normal >60 [facility] Comment on above: Result Comment: [...] By: #### B MPX, CDP, TROPI, MG ####[facility] [address] [place] [address] Lab Director: Rafa Prieto MD Potassium [Moles/Vol] 3.5 mmol/L Low 3.7-5.3 [facility] Comment on above: Performed By: #### B MPX, CDP, TROPI, MG ####[facility] BoxIs[address]occr[address] [place] [address] Lab Director: Rafa Prieto MD Anion gap [Moles/Vol] 13 mmol/L Normal 9-17 [facility] Comment on above: Performed By: #### B MPX, CDP, TROPI, MG ####[facility] [address] [place] [address] Lab Director: Rafa Prieto MD Calcium [Mass/Vol] 8.3 mg/dL Low 8.6-10.4 [facility] Comment on above: Performed By: #### B MPX, CDP, TROPI, MG ####[facility] [address] [place] [address] Lab Director: Rafa Prieto MD Chloride [Moles/Vol] 99 mmol/L Normal 98-107 [facility] Comment on above: Performed By: #### B MPX, CDP, TROPI, MG ####[facility] [address] [place] [address] Lab Director: Rafa Prieto MD CO2 [Moles/Vol] 25 mmol/L Normal 20-31 [facility] Comment on above: Performed By: #### B MPX, CDP, TROPI, MG ####[facility] [address] [place], [place] [phone] Director: Rafa Prieto MD Glucose [Mass/Vol] 89 mg/dL Normal 70-99 [facility] Comment on above: Performed By: #### B MPX, CDP, TROPI, MG ####[facility] [address] [place], [place] [phone] Director: Rafa Prieto MD Sodium [Moles/Vol] 137 mmol/L Normal 135-144 [facility] Comment on above: Performed By: #### B MPX, CDP, TROPI, MG ####[facility] [address] [place] [address] Lab Director: Rafa Prieto MD Urea nitrogen [Mass/Vol] 20 mg/dL Normal 6-20 [facility] Comment on above: Performed By: #### B MPX, CDP, TROPI, MG ####[facility] [address] [place] [address] Lab Director: Rafa Prieto MD Basic Metabolic Profon 01-01 Creatinine [Mass/Vol] 0.7 mg/dL Normal 0.7-1.2 [facility] Comment on above: Result Comment: ICTE MANSOOR SPECIMEN Performed By: #### T ROPI #### [facility] [address] [place] [address] Ase Master Mechanic: Rafa Prieto MD GFR/1.73 sq M.predicted among non-blacks MDRD (S/P/Bld) [Vol rate/Area] mL/min/{1.73_m2} Normal >60 [facility] Comment on above: Result Comment: [...] secretion. Performed By: #### T ROPI #### [address] [address] Ase Master Mechanic: Rafa Prieto MD Anion gap [Moles/Vol] 12 mmol/L Normal 9-17 [facility] Comment on above: Performed By: #### T ROPI #### [address] [address] Ase Master Mechanic: Rafa Prieto MD Calcium [Mass/Vol] 8.3 mg/dL Low 8.6-10.4 [facility] Comment on above: Performed By: #### T ROPI #### [address] [address] Ase Master Mechanic: Rafa Prieto MD Chloride [Moles/Vol] 98 mmol/L Normal 98-107 [facility] Comment on above: Performed By: #### T ROPI #### [address] [address] Ase Master Mechanic: Rafa Prieto MD CO2 [Moles/Vol] 25 mmol/L Normal 20-31 [facility] Comment on above: Performed By: #### T ROPI #### [address] [address] Ase Master Mechanic: Rafa Prieto MD Glucose [Mass/Vol] 125 mg/dL High 70-99 [facility] Comment on above: Performed By: #### T ROPI #### [facility] [place] [address] Ase Master Mechanic: Rafa Prieto MD Potassium [Moles/Vol] 3.6 mmol/L Low 3.7-5.3 [facility] Comment on above: Performed By: #### T ROPI #### [facility] [employer] [address] [place] [address] Ase Master Mechanic: Rafa Prieto MD Sodium [Moles/Vol] 135 mmol/L Normal 135-144 [facility] Comment on above: Performed By: #### T ROPI #### [address] [address] Ase Master Mechanic: Rafa Prieto MD Urea nitrogen [Mass/Vol] 22 mg/dL High 6-20 [facility] Comment on above: Performed By: #### T ROPI #### [address] [address] Ase Master Mechanic: Rafa Prieto MD Brain Natri. Peptideon 01-01 Natriuretic peptide B (Bld) [Mass/Vol] 2437 pg/mL High <300 [facility] Comment on above: Result Comment: An age-independent cutoff point of 300 pg/ml has a 98% negative predictive value excluding acute heart failure. Performed By: #### T ROPI #### [facility] [address] [place] [address] Ase Master Mechanic: Rafa Prieto MD CBC with Diffon 01-01-2024 Abs. Basophil 0.00 k/uL Normal 0.00-0.20 [facility] Comment on above: Performed By: #### B MPX, CDP, TROPI, MG ####[facility] [address] [place] [address] Lab Director: Rafa Prieto MD Abs.Imm.Granulocyte 0.00 k/uL Normal 0.00-0.30 [facility] Comment on above: Performed By: #### B MPX, CDP, TROPI, MG ####[facility] [address] [place], [place] [phone] Director: Rafa Prieto MD Abs.Neutrophil (Seg) 4.00 k/uL Normal 1.50-8.10 [facility] Comment on above: Performed By: #### B MPX, CDP, TROPI, MG ####[facility] [address] [place], [place] [address])[phone] Director: Rafa Prieto MD Basophils/100 WBC (Bld) 0 % Normal 0-2 [facility] Comment on above: Performed By: #### B MPX, CDP, TROPI, MG ####[facility] [address] [place], [place] [address])[phone] Director: Rafa Prieto MD Eosinophils (Bld) [#/Vol] 0.00 10*3/uL Normal 0.00-0.44 [facility] Comment on above: Performed By: #### B MPX, CDP, TROPI, MG ####[facility] [address] [place], [place] [address])[phone] Director: Rafa Prieto MD Eosinophils/100 WBC (Bld) 0 % Low 1-4 [facility] Comment on above: Performed By: #### B MPX, CDP, TROPI, MG ####[facility] [address] [place] [address] Lab Director: Rafa Prieto MD Immature granulocytes/100 WBC (Bld) 0 % Normal 0 [facility] Comment on above: Performed By: #### B MPX, CDP, TROPI, MG ####[facility] [address] [place], [place] [address])[phone] Director: Rafa Prieto MD Lymphocytes (Bld) [#/Vol] 1.70 10*3/uL Normal 1.10-3.70 [facility] Comment on above: Performed By: #### B MPX, CDP, TROPI, MG ####[facility] [address] [place] [address] Lab Director: Rafa Prieto MD Lymphocytes/100 WBC (Bld) 23 % Low 24-43 [facility] Comment on above: Performed By: #### B MPX, CDP, TROPI, MG ####[facility] [address] [place] [address] Lab Director: Rafa Prieto MD Monocytes (Bld) [#/Vol] 1.70 10*3/uL High 0.10-1.20 [facility] Comment on above: Performed By: #### B MPX, CDP, TROPI, MG ####[facility] [address] [place] [address] Lab Director: Rafa Prieto MD Monocytes/100 WBC (Bld) 23 % High 3-12 [facility] Comment on above: Performed By: #### B MPX, CDP, TROPI, MG ####[facility] [address] [place] [address] Lab Director: Rafa Prieto MD Morphology Rancho (Bld) [Interp] ANISOCYTOSIS PRESENT Normal [facility] Comment on above: Result Comment: MICR OCYTOSIS PRESENT Performed By: #### B MPX, CDP, TROPI, MG ####[facility] [address] [place] [address] Lab Director: Rafa Prieto MD Neutrophil (Seg) 54 % Normal 36-65 [facility] Comment on above: Performed By: #### B MPX, CDP, TROPI, MG ####[facility] [address]fsp[address] [place] [address] lab Director: Rafa Prieto MD Erythrocyte distribution width (RBC) [Ratio] 15.8 % High 11.8-14.4 [facility] Comment on above: Performed By: #### B MPX, CDP, TROPI, MG ####[facility] [address] [place] [address] lab Director: Rafa Prieto MD Hematocrit (Bld) [Volume fraction] 40.9 % Normal 40.7-50.3 [facility] Comment on above: Performed By: #### B MPX, CDP, TROPI, MG ####[facility] [address] [place] [address] lab Director: Rafa Prieto MD Hemoglobin (Bld) [Mass/Vol] 12.3 g/dL Low 13.0-17.0 [facility] Comment on above: Performed By: #### B MPX, CDP, TROPI, MG ####[facility] [address] [place] [address] lab Director: Rafa Prieto MD MCH (RBC) [Entitic mass] 24.2 pg Low 25.2-33.5 [facility] Comment on above: Performed By: #### B MPX, CDP, TROPI, MG ####[facility] [address] [place] [address] lab Director: Rafa Prieto MD MCHC (RBC) [Mass/Vol] 30.1 g/dL Normal 28.4-34.8 [facility] Comment on above: Performed By: #### B MPX, CDP, TROPI, MG ####[facility] [address] [place] [address] Lab Director: Rafa Prieto MD MCV (RBC) [Entitic vol] 80.5 fL Low 82.6-102.9 [facility] Comment on above: Performed By: #### B MPX, CDP, TROPI, MG ####[facility] [address] [place], [place] [phone] Director: Rafa Prieto MD NRBC Automated 0.0 per 100 WBC Normal 0.0 [facility] Comment on above: Performed By: #### B MPX, CDP, TROPI, MG ####[facility] [address] [place], [place] [phone] Director: Rafa Prieto MD Platelet mean volume (Bld) [Entitic vol] 11.0 fL Normal 8.1-13.5 [facility] Comment on above: Performed By: #### B MPX, CDP, TROPI, MG ####[facility] R[address]zhtw[address] [place], [place] [phone])[phone] Director: Rafa Prieto MD Platelets (Bld) [#/Vol] 246 10*3/uL Normal 138-453 [facility] Comment on above: Performed By: #### B MPX, CDP, TROPI, MG ####[facility] [address]gxm[address] [place], [place] [phone])[phone] Director: Rafa Prieto MD RBC (Bld) [#/Vol] 5.08 10*6/uL Normal 4.21-5.77 [facility] Comment on above: Performed By: #### B MPX, CDP, TROPI, MG ####[facility] [address] [place] [address] [phone] Director: Rafa Prieto MD WBC (Bld) [#/Vol] 7.4 10*3/uL Normal 3.5-11.3 [facility] Comment on above: Performed By: #### B MPX, CDP, TROPI, MG ####[facility] [address] [place], [place] [phone] Director: Rafa Prieto MD Abs. Basophil 0.00 k/uL Normal 0.0-0.2 [facility] Comment on above: Performed By: #### T ROPI #### [address] [address] [employer] Master Mechanic: Rafa Prieto MD Abs.Imm.Granulocyte 0.00 k/uL Normal 0.00-0.30 [facility] Comment on above: Performed By: #### T ROPI #### [address] [address] [employer] Master [employer]ic: Rafa Prieto MD Abs.Neutrophil (Seg) 5.76 k/uL Normal 1.8-7.7 [facility] Comment on above: Performed By: #### T ROPI #### [address] [address] [employer] Master [employer]ic: Rafa Prieto MD Basophils/100 WBC (Bld) 0 % Normal 0-2 [facility] Comment on above: Performed By: #### T ROPI #### [address] [address] [employer] Master Mechanic: Rafa Prieto MD Eosinophils (Bld) [#/Vol] 0.00 10*3/uL Normal 0.0-0.4 [facility] Comment on above: Performed By: #### T ROPI #### [address] [address] [employer] Master [employer]ic: Rafa Prieto MD Eosinophils/100 WBC (Bld) 0 % Low 1-4 [facility] Comment on above: Performed By: #### T ROPI #### [address] [address] [employer]se Master [employer]ic: Rafa Prieto MD Immature granulocytes/100 WBC (Bld) 0 % Normal 0 [facility] Comment on above: Performed By: #### T ROPI #### [address] [address] [employer] Master [employer]ic: Rafa Prieto MD Lymphocytes (Bld) [#/Vol] 1.28 10*3/uL Normal 1.0-4.8 [facility] Comment on above: Performed By: #### T ROPI #### [address] [address] [employer] Master [employer]ic: Rafa Prieto MD Lymphocytes/100 WBC (Bld) 16 % Low 24-44 [facility] Comment on above: Performed By: #### T ROPI #### [address] [address] [employer] Master [employer]ic: Rafa Prieto MD Monocytes (Bld) [#/Vol] 0.96 10*3/uL High 0.1-0.8 [facility] Comment on above: Performed By: #### T ROPI #### [address] [address] [employer]se Master [employer]ic: Rafa Prieto MD Monocytes/100 WBC (Bld) 12 % High 1-7 [facility] Comment on above: Performed By: #### T ROPI #### [address] [address] Ase Master Mechanic: Rafa Prieto MD Morphology Rancho (Bld) [Interp] ANISOCYTOSIS PRESENT Normal [facility] Comment on above: Result Comment: MICR OCYTOSIS PRESENT Performed By: #### T ROPI #### [address] [address] Ase Master Mechanic: Rafa Prieto MD Neutrophil (Seg) 72 % High 36-66 [facility] Comment on above: Performed By: #### T ROPI #### [address] [address] [employer] Master Mechanic: Rafa Prieto MD Nucleated RBC'S 1 per 100 WBC High 0 [facility] Comment on above: Performed By: #### T ROPI #### [address] [place] [address] [employer]se Master Mechanic: Rafa Prieto MD Erythrocyte distribution width (RBC) [Ratio] 15.9 % High 11.8-14.4 [facility] Comment on above: Performed By: #### T ROPI #### [address] [address] [employer] Master Mechanic: Rafa Prieto MD Hematocrit (Bld) [Volume fraction] 41.5 % Normal 40.7-50.3 [facility] Comment on above: Performed By: #### T ROPI #### [address] [address] [employer] Master Mechanic: Rafa Prieto MD Hemoglobin (Bld) [Mass/Vol] 12.7 g/dL Low 13.0-17.0 [facility] Comment on above: Performed By: #### T ROPI #### [address] [address] Ase Master Mechanic: Rafa Prieto MD MCH (RBC) [Entitic mass] 24.3 pg Low 25.2-33.5 [facility] Comment on above: Performed By: #### T ROPI #### [address] [address] Ase Master Mechanic: Rafa Prieto MD MCHC (RBC) [Mass/Vol] 30.6 g/dL Normal 28.4-34.8 [facility] Comment on above: Performed By: #### T ROPI #### [address] [address] Ase Master Mechanic: Rafa Prieto MD MCV (RBC) [Entitic vol] 79.5 fL Low 82.6-102.9 [facility] Comment on above: Performed By: #### T ROPI #### [address] [address] Ase Master Mechanic: Rafa Prieto MD NRBC Automated 0.3 per 100 WBC High 0.0 [facility] Comment on above: Performed By: #### T ROPI #### [facility] [employer] [address] [place] [address] [employer] Master [employer]ic: Rafa Prieto MD Platelet mean volume (Bld) [Entitic vol] 10.9 fL Normal 8.1-13.5 [facility] Comment on above: Performed By: #### T ROPI #### [facility] [employer] [address] [place] [address] [employer]ic: Rafa Prieto MD Platelets (Bld) [#/Vol] 265 10*3/uL Normal 138-453 [facility] Comment on above: Performed By: #### T ROPI #### [address] [address] [employer]se Master Mechanic: Rafa Prieto MD RBC (Bld) [#/Vol] 5.22 10*6/uL Normal 4.21-5.77 [facility] Comment on above: Performed By: #### T ROPI #### [facility] [employer] [address] [place] [address] Ase Master [employer]ic: Rafa Prieto MD WBC (Bld) [#/Vol] 8.0 10*3/uL Normal 3.5-11.3 [facility] Comment on above: Performed By: #### T ROPI #### [facility] [employer] [address] [place] [address] [employer] Master Mechanic: Rafa Prieto MD Glucose,Whole Bloodon 2023 Glucose [Mass/Vol] 72 mg/dL Low 75-110 [facility] Glucose [Mass/Vol] 60 mg/dL Low 75-110 [facility] Glucose [Mass/Vol] 44 mg/dL Low 75-110 [facility] Comment on above: Result Comment: Alesia mensah Noted Glucose [Mass/Vol] 91 mg/dL Normal 75-110 [facility] Glucose [Mass/Vol] 66 mg/dL Low 75-110 [facility] Glucose [Mass/Vol] 42 mg/dL Low 75-110 [facility] Comment on above: Result Comment: Alesia mensah Noted Glucose [Mass/Vol] 124 mg/dL High 75-110 [facility] Heparin Anti-Xaon 01-01-2024 Heparin Anti-Xa 0.97 IU/L Normal [facility] Comment on above: Performed By: #### H EPXA #### [facility] [address] [place] [address] Ase Master Mechanic: Rafa Prieto MD Heparin Anti-Xa 0.40 IU/L Normal [facility] Comment on above: Performed By: #### H EPXA, PTT #### [facility] [employer] [address] [place] [address] Ase Master Mechanic: Rafa Prieto MD Heparin Anti-Xa 0.32 IU/L Normal [facility] Comment on above: Performed By: #### H EPXA, PTT #### [facility] [employer] [address] [place] [address] Ase Master Mechanic: Rafa Prieto MD Heparin Anti-Xa 0.29 IU/L Normal [facility] Comment on above: Performed By: #### T ROPI #### [facility] [employer] [address] [place] [address] [employer] Master Mechanic: Rafa Prieto MD MRSA, DNA, Nasalon MRSA, DNA, Nasal Negative Normal NEG [facility] Comment on above: Result Comment: NEGA TIVE: MRSA DNA not detected by nucleic acid amplification. Results should be used as an adjunct to nosocomial control efforts to identify patients needing enhanced precautions. The test is not intended to identify patients with staphylococcal infections. Results should not be used to guide or monitor treatment for MRSA infections. Performed By: #### M RSANO ####[address] [phone] Director: Rafa Prieto MD Specimen Description .NASAL SWAB Normal [facility] Comment on above: Performed By: #### M RSANO ####[facility] [address] [place], [place] [phone] Director: Rafa Prieto MD Magnesiumon 01-01-2024 Magnesium [Mass/Vol] 1.7 mg/dL Normal 1.6-2.6 [facility] Comment on above: Performed By: #### B MPX, CDP, TROPI, MG ####[facility] [address] [place], [place] [id number])[phone] Director: Rafa Prieto MD Troponinon 01-01-2024 Troponin, High Sens 103 ng/L Critically high 0-22 [facility] Comment on above: Result Comment: High Sensitivity Troponin values cannot be compared with other Troponin methodologies. Previous Alert Value Reported Performed By: #### B MPX, CDP, TROPI, MG ####[facility] [address] [place], [place] [phone] Director: Rafa Prieto MD Troponin, High Sens 107 ng/L Critically high 0-22 [facility] Comment on above: Result Comment: High Sensitivity Troponin values cannot be compared with other Troponin methodologies. Previous Alert Value Reported Performed By: #### T ROPI ####[facility] [address] [place], [place] [id number])[phone] Director: Rafa Prieto MD Troponin, High Sens 107 ng/L Critically high 0-22 [facility] Comment on above: Result Comment: High Sensitivity Troponin values cannot be compared with other Troponin methodologies. Previous Alert Value Reported Performed By: #### T ROPI #### [facility] [address] [place] [address] Ase Master Mechanic: Rafa Prieto MD Troponin, High Sens 104 ng/L Critically high 022 [facility] Comment on above: Result Comment: High Sensitivity Troponin values cannot be compared with other Troponin methodologies. Performed By: #### T ROPI #### [facility] [address] [place] [address] Ase Master Mechanic: Rafa Prieto MD Type + Screenon 01-01-2024 Type + Screen Sample Expiration 01/04/2024,2359 Arm Band Number [id number] ABO/Rh(D) A POSITIVE Antibody Screen NEGATIVE Normal [facility] Comment on above: Performed By: #### T YS ####[facility] [address] [place] [address] Lab Director: Rafa Prieto MD Urinalysis, Routineon 2023 Bilirubin, SemiQt,Ur Negative Normal NEG [facility] Comment on above: Performed By: #### H EPXA, PTT #### [facility] [address] [place] [address] Ase Master Mechanic: Rafa Prieto MD Blood, Urine LARGE Abnormal NEG [facility] Comment on above: Performed By: #### H EPXA, PTT #### [facility] [address] [place] [address] Ase Master Mechanic: Rafa Prieto MD Clarity (U) Clear Normal CLEAR [facility] Comment on above: Performed By: #### H EPXA, PTT #### [facility] [address] [place] [address] Ase Master Mechanic: Rafa Prieto MD Color (U) Dark Yellow Abnormal YEL [facility] Comment on above: Performed By: #### H EPXA, PTT #### [facility] [address] [place] [address] Ase Master Mechanic: Rafa Prieto MD Glucose Ql (U) Negative Normal NEG [facility] Comment on above: Performed By: #### H EPXA, PTT #### [employer] [address] [place] [address] Ase Master Mechanic: Rafa Prieto MD Ketones Ql (U) Negative Normal NEG [facility] Comment on above: Performed By: #### H EPXA, PTT #### [facility] [employer] [address] [place] [address] Ase Master Mechanic: Rafa Prieto MD Leukocyte esterase Test strip Ql (U) MODERATE Abnormal NEG [facility] Comment on above: Performed By: #### H EPXA, PTT #### [facility] [employer] [address] [place] [address] Ase Master Mechanic: Rafa Prieto MD Nitrite,Ur Negative Normal NEG [facility] Comment on above: Performed By: #### H EPXA, PTT #### [facility] [employer] [address] [place] [address] Ase Master Mechanic: Rafa Prieto MD PH,Ur 5.5 Normal 5.0-8.0 [facility] Comment on above: Performed By: #### H EPXA, PTT #### [facility] [employer] [address] [place] [address] Ase Master Mechanic: Rafa Prieto MD Protein Ql (U) TRACE Abnormal NEG [facility] Comment on above: Performed By: #### H EPXA, PTT #### [facility] [employer] [address] [place] [address] Ase Master Mechanic: Rafa Prieto MD Spec. [place],Ur 1.024 Normal 1.005-1.030 [facility] Comment on above: Performed By: #### H EPXA, PTT #### [facility] [employer] [address] [place] [address] Ase Master Mechanic: Rafa Prieto MD Urobilinogen,Ur ELEVATED Normal 0.0-1.0 [facility] Comment on above: Performed By: #### H EPXA, PTT #### [facility] [employer] [address] [place] [address] Ase Master Mechanic: Rafa Prieto MD Urinalysis,Microon 4 Epithelial cells LM Ql (Urine sed) 5 TO 10 Normal 0-5 [facility] Comment on above: Performed By: #### H EPXA, PTT #### [facility] [address] [place] [address] Ase Master Mechanic: Rafa Prieto MD Urine RBC's TOO NUMEROUS TO COUNT Normal 0-2 [facility] Comment on above: Performed By: #### H EPXA, PTT #### [facility] [address] [place] [address] Ase Master Mechanic: Rafa Prieto MD Urine WBC's 10 TO 20 Normal 0-5 [facility] Comment on above: Performed By: #### H EPXA, PTT #### [address] [phone] Ase Master Mechanic: Rafa Prieto MD DENNY Antinuclear Antibodieson 08-09-2023 Antinuclear Abs, IFA Negative Normal . [facility] Comment on above: Result Comment: Nega tive <1:80 Borderline 1:80 Positive >1:80 ICAP nomenclature: AC-0 For more information about Hep-2 cell patterns use ANApatterns.org, the official website for the International Consensus on Antinuclear Antibody (DENNY) Patterns (ICAP). Performed at: - [facility] [address] [id number] Ase Master Mechanic: Lester Nunez PhD, Phone: [phone] Performed By: #### A NA, [id number] #### [facility] , #### T4F, CRP, CK, CMP, ESR, CBC, TSH3 #### [facility] [address] [place] [address] [place] C-Reactive Proteinon 023 C-Reactive Protein 0.5 mg/dL Normal 0.0-0.5 [facility] Comment on above: Performed By: #### A NA, [id number] #### [facility] , #### T4F, CRP, CK, CMP, ESR, CBC, TSH3 #### [address] Complete Blood Count Auto Di ffon 08-09-2023 Basophils (Bld) [#/Vol] 0.0 10*3/uL Normal 0.0-0.2 [facility] Comment on above: Performed By: #### A NA, [id number] #### [facility] , #### T4F, CRP, CK, CMP, ESR, CBC, TSH3 #### [address] Basophils/100 WBC (Bld) 0.6 % Normal . [facility] Comment on above: Performed By: #### A NA, [id number] #### [facility] , #### T4F, CRP, CK, CMP, ESR, CBC, TSH3 #### [address] Eosinophils (Bld) [#/Vol] 0.1 10*3/uL Normal 0.0-0.45 [facility] Comment on above: Performed By: #### A NA, [id number] #### [facility] , #### T4F, CRP, CK, CMP, ESR, CBC, TSH3 #### [address] Eosinophils/100 WBC (Bld) 1.4 % Normal . [facility] Comment on above: Performed By: #### A NA, [id number] #### [facility] , #### T4F, CRP, CK, CMP, ESR, CBC, TSH3 #### [address] Erythrocyte distribution width (RBC) [Ratio] 13.1 % Normal 12.0-14.8 [facility] Comment on above: Performed By: #### A NA, [id number] #### [facility] , #### T4F, CRP, CK, CMP, ESR, CBC, TSH3 #### [address] Hematocrit (Bld) [Volume fraction] 43.8 % Normal 38.8-50.0 [facility] Comment on above: Performed By: #### A NA, [id number] #### [facility] , #### T4F, CRP, CK, CMP, ESR, CBC, TSH3 #### [address] Hemoglobin (Bld) [Mass/Vol] 14.4 g/dL Normal 13.0-17.0 [facility] Comment on above: Performed By: #### A NA, [id number] #### [facility] , #### T4F, CRP, CK, CMP, ESR, CBC, TSH3 #### [address] Lymphocytes (Bld) [#/Vol] 1.7 10*3/uL Normal 1.00-4.8 [facility] Comment on above: Performed By: #### A NA, [id number] #### [facility] , #### T4F, CRP, CK, CMP, ESR, CBC, TSH3 #### [address] Lymphocytes/100 WBC (Bld) 24.1 % Normal . [facility] Comment on above: Performed By: #### A NA, [id number] #### [facility] , #### T4F, CRP, CK, CMP, ESR, CBC, TSH3 #### [address] MCH (RBC) [Entitic mass] 27.6 pg Normal 27.5-35.2 [facility] Comment on above: Performed By: #### A NA, [id number] #### [facility] , #### T4F, CRP, CK, CMP, ESR, CBC, TSH3 #### [address] MCV (RBC) [Entitic vol] 84.1 fL Normal 83.5-101 [facility] Comment on above: Performed By: #### A NA, [id number] #### [facility] , #### T4F, CRP, CK, CMP, ESR, CBC, TSH3 #### [address] Mean Corpuscular HGB Conc 32.8 g/dL Normal 32.5-35.6 [facility] Comment on above: Performed By: #### A NA, [id number] #### [facility] , #### T4F, CRP, CK, CMP, ESR, CBC, TSH3 #### [address] Monocytes (Bld) [#/Vol] 0.4 10*3/uL Normal 0.0-0.8 [facility] Comment on above: Performed By: #### A NA, [id number] #### [facility] , #### T4F, CRP, CK, CMP, ESR, CBC, TSH3 #### [address] Monocytes/100 WBC (Bld) 5.9 % Normal . [facility] Comment on above: Performed By: #### A NA, [id number] #### [facility] , #### T4F, CRP, CK, CMP, ESR, CBC, TSH3 #### [address] Neutrophils (Bld) [#/Vol] 4.9 10*3/uL Normal 1.8-7.7 [facility] Comment on above: Performed By: #### A NA, [id number] #### [facility] , #### T4F, CRP, CK, CMP, ESR, CBC, TSH3 #### [address] [place] [address] [place] Neutrophils/100 WBC (Bld) 68.0 % Normal . [facility] Comment on above: Performed By: #### A NA, [id number] #### [facility] , #### T4F, CRP, CK, CMP, ESR, CBC, TSH3 #### [address] NRBC% 0.2 /100{WBC} Normal 0-0.5 [facility] Comment on above: Performed By: #### A NA, [id number] #### [facility] , #### T4F, CRP, CK, CMP, ESR, CBC, TSH3 #### [address] Platelet mean volume (Bld) [Entitic vol] 10.9 fL High 6.6-10.1 [facility] Comment on above: Performed By: #### A NA, [id number] #### [facility] , #### T4F, CRP, CK, CMP, ESR, CBC, TSH3 #### [place] [address] [place] Platelets (Bld) [#/Vol] 216 10*3/uL Normal 150-450 [facility] Comment on above: Performed By: #### A NA, [id number] #### [facility] , #### T4F, CRP, CK, CMP, ESR, CBC, TSH3 #### [address] RBC (Bld) [#/Vol] 5.20 10*6/uL Normal 3.90-5.60 [facility] Comment on above: Performed By: #### A NA, [id number] #### [facility] , #### T4F, CRP, CK, CMP, ESR, CBC, TSH3 #### [place] [address] [place] WBC (Bld) [#/Vol] 7.1 10*3/uL Normal 4.1-10.5 [facility] Comment on above: Performed By: #### A NA, [id number] #### [facility] , #### T4F, CRP, CK, CMP, ESR, CBC, TSH3 #### [facility] [address] [place] [address] Comprehensive Metabolic Pane chery 08-09-2023 Albumin [Mass/Vol] 4.6 g/dL Normal 3.5-5.7 [facility] Comment on above: Performed By: #### A NA, [id number] #### [facility] , #### T4F, CRP, CK, CMP, ESR, CBC, TSH3 #### [address] Albumin/Globulin [Mass ratio] 1.3 {ratio} Normal [facility] Comment on above: Performed By: #### A NA, [id number] #### [facility] , #### T4F, CRP, CK, CMP, ESR, CBC, TSH3 #### [facility] [address] [place] [address] ALP [Catalytic activity/Vol] 44 U/L Normal 34-104 [facility] Comment on above: Performed By: #### A NA, [id number] #### [facility] , #### T4F, CRP, CK, CMP, ESR, CBC, TSH3 #### [facility] [address] [place] [address] ALT [Catalytic activity/Vol] 50 U/L Normal 7-52 [facility] Comment on above: Performed By: #### A NA, [id number] #### [facility] , #### T4F, CRP, CK, CMP, ESR, CBC, TSH3 #### [address] Anion gap [Moles/Vol] 14.9 mmol/L Normal 6.0-15.0 [facility] Comment on above: Performed By: #### A NA, [id number] #### [facility] , #### T4F, CRP, CK, CMP, ESR, CBC, TSH3 #### [address] AST [Catalytic activity/Vol] 33 U/L Normal 13-39 [facility] Comment on above: Performed By: #### A NA, [id number] #### [facility] , #### T4F, CRP, CK, CMP, ESR, CBC, TSH3 #### [facility] [address] [place] [address] Bilirubin [Mass/Vol] 0.4 mg/dL Normal 0.3-1.0 [facility] Comment on above: Performed By: #### A NA, HLAB27 #### [facility] , #### T4F, CRP, CK, CMP, ESR, CBC, TSH3 #### [address] Calcium [Mass/Vol] 10.2 mg/dL Normal 8.6-10.3 [facility] Comment on above: Performed By: #### A NA, [id number] #### [facility] , #### T4F, CRP, CK, CMP, ESR, CBC, TSH3 #### [facility] [address] [place] [address] [place] Chloride [Moles/Vol] 97 mmol/L Low 98-107 [facility] [facility] Comment on above: Performed By: #### A NA, [id number] #### [facility] , #### T4F, CRP, CK, CMP, ESR, CBC, TSH3 #### [facility] [address] [place] [address] CO2 [Moles/Vol] 29.7 mmol/L Normal 21.0-31.0 [facility] Comment on above: Performed By: #### A NA, [id number] #### [facility] , #### T4F, CRP, CK, CMP, ESR, CBC, TSH3 #### [address] Creatinine [Mass/Vol] 0.80 mg/dL Normal 0.70-1.30 [facility] Comment on above: Performed By: #### A NA, [id number] #### [facility] , #### T4F, CRP, CK, CMP, ESR, CBC, TSH3 #### [address] GFR/1.73 sq M.predicted MDRD (S/P/Bld) [Vol rate/Area] mL/min/{1.73_m2} [facility] Comment on above: Performed By: #### A NA, [id number] #### [facility] , #### T4F, CRP, CK, CMP, ESR, CBC, TSH3 #### [address] Globulin (S) [Mass/Vol] 3.5 g/dL Normal [facility] Comment on above: Performed By: #### A NA, [id number] #### [facility] , #### T4F, CRP, CK, CMP, ESR, CBC, TSH3 #### [address] Glucose [Mass/Vol] 157 mg/dL High 70-100 [facility] Comment on above: Result Comment: [facility] Glucose Reference Range is dependent on time and content of last meal. Glucose of more than 200 mg/dL in a nonstressed, ambulatory subject supports the diagnosis of Diabetes Mellitus. ADA recommended reference range Performed By: #### A NA, [id number] #### [facility] , #### T4F, CRP, CK, CMP, ESR, CBC, TSH3 #### [address] Potassium [Moles/Vol] 4.6 mmol/L Normal 3.5-5.1 [facility] Comment on above: Performed By: #### A NA, [id number] #### [facility] , #### T4F, CRP, CK, CMP, ESR, CBC, TSH3 #### [facility] [address] [place] [address] Protein [Mass/Vol] 8.1 g/dL Normal 6.4-8.9 [facility] Comment on above: Performed By: #### A NA, [id number] #### [facility] , #### T4F, CRP, CK, CMP, ESR, CBC, TSH3 #### [address] Sodium [Moles/Vol] 137 mmol/L Normal 136-145 [facility] Comment on above: Performed By: #### A NA, HLAB27 #### [facility] , #### T4F, CRP, CK, CMP, ESR, CBC, TSH3 #### [address] Urea nitrogen [Mass/Vol] 10 mg/dL Normal 7-25 [facility] Comment on above: Performed By: #### A NA, HLAB27 #### [facility] , #### T4F, CRP, CK, CMP, ESR, CBC, TSH3 #### [facility] [address] [place] [address] Creatine Kinaseon 08-09-2023 CK [Catalytic activity/Vol] 95 U/L Normal 30-223 [facility] Comment on above: Result Comment: PERF ORMED BY: [place] [address] PATHOLOGIST DIRECTOR CONSUMER JOSEPH SAUCEDA M.D. Performed By: #### A NA, [id number] #### [facility] , #### T4F, CRP, CK, CMP, ESR, CBC, TSH3 #### [address] [place] [address] [place] Erythrocyte Sedimentation Ra baldo 08-09-2023 ESR (Bld) [Velocity] 30 mm/h High 0-19 [facility] Comment on above: Result Comment: PERF ORMED BY: [place] [address] PATHOLOGIST DIRECTOR CONSUMER JOSEPH SAUCEDA M.D. Performed By: #### A NA, [id number] #### [facility] , #### T4F, CRP, CK, CMP, ESR, CBC, TSH3 #### [address] Free T4 (Free Thyroxine)on 1 Free T4 [Mass/Vol] 0.87 ng/dL Normal 0.61-1.12 [facility] Comment on above: Performed By: #### A NA, HLAB27 #### [facility] , #### T4F, CRP, CK, CMP, ESR, CBC, TSH3 #### [address] HLA B27 Disease Associationo n 08-09-2023 HLA B27 Disease Association Positive Normal . [facility] Comment on above: Result Comment: HLA- B*27 Positive This patient is positive for HLA-B*27. This procedure rules out the B*27:06 and 27:09 alleles, which the literature suggests are not associated with spondyloarthropathies. B27 allele interpretation for all loci based on IMGT/HLA database version 3.44 This test was developed and its performance characteristics determined by [employer]. It has not been cleared or approved by the Food and Drug Administration. [facility] CLIA ID Number [id number] THis test was performed using Polymerase Chain Reaction (PCR) and Sequence Specific Oligonucleotide Probes (SSOP) technique. Sequence Based Typing (SBT) may be used as a supplemental method when necessary. If you have questions, please call HLA customer service at or email at [email or web address]. Performed at: [address] [id number] [employer]se Master Mechanic: Minerva Pearce PhD, Phone: [phone] PERFORMED BY: [place] [address] PATHOLOGIST DIRECTOR CONSUMER JOSEPH SAUCEDA M.D. Performed By: #### A NA, [id number] #### [facility] , #### T4F, CRP, CK, CMP, ESR, CBC, TSH3 #### [address] Thyroid Stimulating Hormoneo n 08-09-2023 TSH Qn 2.42 m[IU]/L Normal 0.45-5.33 [facility] Comment on above: Result Comment: PERF ORMED BY: [place] [address] PATHOLOGIST DIRECTOR CONSUMER JOSEPH SAUCEDA M.D. Performed By: #### A NA, [id number] #### [facility] , #### T4F, CRP, CK, CMP, ESR, CBC, TSH3 #### [address] XR thoracic spine 3V*on XR thoracic spine 3V* [facility] [address] [place] [address] XRay Report Signed Patient: Vitaly Dobson MR#: [id number] : 1970 Acct:[id number] Age/Sex: 52 / M ADM Date: 08/09/23 Loc: ICXD Room: Type: [facility] Attending Dr: Edi Henriquez MD Copies to: Edi Henriquez MD Ordering Provider: Edi Henriquez MD Date of Service: 08/09/23 XR/XR lumbar spine 2-3V*: LOW BACK PAIN ([id number]) XR/XR thoracic spine 3V*: DISH VS ANKYLOSING SPONDYLITIS ([id number]) XR/XR si joints: LOW BACK PAIN CLINICAL [...] Vee Amanda M.D.08/09/2023 4:34 PM Dictation Location: [place] [address] Transcribed By: [facility] 08/09/23 1634 Dictated By: Vee Amanda MD 08/09/23 1608 Signed By: 08/09/[address] [facility] XR cervical spine 2-3Von XR cervical spine 2-3V [facility] [employer] Other XR cervical spine 2-3V [address] [facility] [employer] Other XR cervical spine 2-3[place] [address] [employer] Other XR cervical spine 2-3V XRay Report [employer] Other XR cervical spine 2-3V Signed [employer] Other XR cervical spine 2-3V Patient: VITALY DOBSON MR#: [id number] [employer] Other XR cervical spine 2-3V : 1970 Acct:[id number] [employer] Other XR cervical spine 2-3V Age/Sex: 52 / M ADM Date: 07/28/23 [employer] Other XR cervical spine 2-3V Loc: [facility] [employer] Other XR cervical spine 2-3V Attending Dr: Semaj Avery D.O. [employer] Other XR cervical spine 2-3V Ordering Physician: Semaj Avery D.O. [employer] Other XR cervical spine 2-3V Date of Service: 07/28/23 [employer] Other XR cervical spine 2-3V Accession Number(s): [id number] [employer] Other XR cervical spine 2-3V cc: Semaj Avery D.O. [employer] Other XR cervical spine 2-3V [address] [facility] [employer] Other XR cervical spine 2-3V [place] [address] [employer] Other XR cervical spine 2-3V [employer] Other XR cervical spine 2-3V Patient Name: [employer] Other XR cervical spine 2-3V VITALY DOBSON [employer] Other XR cervical spine 2-3V MRN: [facility]:[id number] date: 1970 Sex: M [employer] Other XR cervical spine 2-3V Assigned Patient Location: [facility] [employer] Other XR cervical spine 2-3V Current Patient Location: LAB [employer] Other XR cervical spine 2-3V Accession/Order Number: [id number] [employer] Other XR cervical spine 2-3V Exam Date: 07/28/2023 11:15 Report Date: 07/28/2023 12:14 [employer] Other XR cervical spine 2-3V At the request of: [employer] Other XR cervical spine 2-3V SEMAJ BALL [employer] Other XR cervical spine 2-3V EXAMINATION: XR cervical spine 2-3V, XR lumbar spine 2-3V, XR thoracic spine [employer] Other XR cervical spine 2-3V 2V [employer] Other XR cervical spine 2-3V HISTORY: Scoliosis M41.20, Cervical Spondylosis M47.812 [employer] Other XR cervical spine 2-3V COMPARISON: No relevant comparison available. [employer] Other XR cervical spine 2-3V FINDINGS: [employer] Other XR cervical spine 2-3V BONES: Cervical spine demonstrates marked left convex curvature and mild [employer] Other XR cervical spine 2-3V reversal of normal lordotic curvature. Suspect degenerative changes versus [employer] Other XR cervical spine 2-3V osseous bridging of the facet joints at most levels. No appreciable fracture [employer] Other XR cervical spine 2-3V or [employer] Other XR cervical spine 2-3V spondylolisthesis [employer] Other XR cervical spine 2-3V Thoracic spine demonstrates moderate left convex curvature and exaggerated [employer] Other XR cervical spine 2-3V kyphosis. No appreciable fracture or spondylolisthesis. [employer] Other XR cervical spine 2-3V Lumbar spine demonstrates mild curvature at the thoracolumbar junction. [employer] Other XR cervical spine 2-3V Straightening of the normal lordotic curvature, and multilevel marked [employer] Other XR cervical spine 2-3V degenerative facet arthropathy. Bone encroachment on the L4-5 and L5-S1 neural [employer] Other XR cervical spine 2-3V foramen. [employer] Other XR cervical spine 2-3V DISC SPACES: Calcification of the interspinous ligaments throughout. Cervical [employer] Other XR cervical spine 2-3V spine multilevel mild disc space narrowing. Thoracic spine multilevel mild [employer] Other XR cervical spine 2-3V disc [employer] Other XR cervical spine 2-3V space narrowing. Lumbar spine and multilevel mild-moderate disc space [employer] Other XR cervical spine 2-3V narrowing. [employer] Other XR cervical spine 2-3V PARASPINOUS: No paraspinous abnormality is seen. [employer] Other XR cervical spine 2-3V Negative [employer] Other XR cervical spine 2-3V XR/XR cervical spine 2-3V [employer] Other XR cervical spine 2-3V IMPRESSION: [employer] Other XR cervical spine 2-3V 1. Limited examination due to patient needing to be imaged in the standing [employer] Other XR cervical spine 2-3V position. [employer] Other XR cervical spine 2-3V 2. Multilevel scoliotic curvature of the cervical and thoracic spine. [employer] Other XR cervical spine 2-3V 3. Thoracic kyphosis. [employer] Other XR cervical spine 2-3V 4. Findings favor diffuse ankylosing spondylitis throughout the cervical, [employer] Other XR cervical spine 2-3V thoracic, lumbar spine. [employer] Other XR cervical spine 2-3V 5. Multilevel mild degenerative disc disease. [employer] Other XR cervical spine 2-3V 6. Marked degenerative facet arthropathy of lumbar spine. [employer] Other XR cervical spine 2-3V Electronically authenticated by: DAMI GOMEZ Date: 07/28/2023 12:14 [employer] Other XR cervical spine 2-3V Dictated By: Dami Gomez M.D. 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: [employer] Other XR lumbar spine 2-3Von 07-28 XR lumbar spine 2-3V Accession Number(s): [id number] [employer] Other XR lumbar spine 2-3V Accession/Order Number: [id number] [employer] Other XR lumbar spine 2-3V XR/XR lumbar spine 2-3V [employer] Other XR thoracic spine 2Von 07-28 XR thoracic spine 2V Accession Number(s): [id number] [employer] Other XR thoracic spine 2V Accession/Order Number: [id number] [employer] Other XR thoracic spine 2V XR/XR thoracic spine 2V [facility] [employer] Other LIPID PROFILE SEND OUTon Cholesterol [Mass/Vol] 259 mg/dL Critically high 100-199 [facility] Comment on above: Performed By: #### B MPLC, LIPIDLC #### [facility] [address] [place] [address] [address] David Brown Cholesterol in HDL [Mass/Vol] 16 mg/dL Critically low >39 [facility] Comment on above: Performed By: #### B MPLC, LIPIDLC #### [facility] [address] [place] [address] [address] David Brown Comment: Normal [facility] Comment on above: Performed By: #### B MPLC, LIPIDLC #### [facility] [address] [place] [address] Dr. David Brown LDL Chol. Calc. ([facility]) Comment Abnormal 0-99 [facility] Comment on above: Result Comment: Trig lyceride result indicated is too high for an accurate LDL cholesterol estimation. Performed By: #### B MPLC, LIPIDLC #### [facility] [address] [place] [address] Dr. David Brown Triglyceride [Mass/Vol] 2070 mg/dL Invalid Interpretation Code 0-149 [facility] Comment on above: Result Comment: Resu lts confirmed on dilution. Performed By: #### B MPLC, LIPIDLC #### [facility] [address] [place] [address] Dr. David Brown VLDL Cholesterol, Calc Comment Abnormal 5-40 [facility] Comment on above: Result Comment: The calculation for the VLDL cholesterol is not valid when triglyceride level is >800 mg/dL. Performed By: #### B MPLC, LIPIDLC #### [facility] [address] [place] [address] Dr. David Brown PROF CHEM 8 (BAS METB) SEND OUTon 02-04-2023 Calcium [Mass/Vol] 10.0 mg/dL Normal 8.7-10.2 [facility] Comment on above: Performed By: #### B MPLC, LIPIDLC #### [facility] [address] [place] [address] [address] David Brown Chloride [Moles/Vol] 91 mmol/L Critically low 96-106 [facility] Comment on above: Performed By: #### B MPLC, LIPIDLC #### [facility] [address] [place] [address] [address] David Brown CO2 [Moles/Vol] 24 mmol/L Normal 20-29 [facility] Comment on above: Performed By: #### B MPLC, LIPIDLC #### [facility] [address] [place] [address] [address] David Brown Creatinine [Mass/Vol] 1.00 mg/dL Normal 0.76-1.27 [facility] Comment on above: Performed By: #### B MPLC, LIPIDLC #### [facility] [address] [place] [address] Dr. David Brown GFR/1.73 sq M.predicted among non-blacks MDRD (S/P/Bld) [Vol rate/Area] 90 mL/min/{1.73_m2} Normal >59 [facility] Comment on above: Performed By: #### B MPLC, LIPIDLC #### [facility] [address] [place] [address] Dr. David Brown Glucose [Mass/Vol] 205 mg/dL Critically high 70-99 [facility] Comment on above: Performed By: #### B MPLC, LIPIDLC #### [facility] [address] [place] [address] Dr. David Brown Potassium [Moles/Vol] 4.7 mmol/L Normal 3.5-5.2 [facility] Comment on above: Performed By: #### B MPLC, LIPIDLC #### [facility] [address] [place] [address] Dr. David Brown Sodium [Moles/Vol] 132 mmol/L Critically low 134-144 [facility] Comment on above: Performed By: #### B MPLC, LIPIDLC #### [facility] [address] [place] [address] Dr. David Brown Urea nitrogen [Mass/Vol] 18 mg/dL Normal 6-24 [facility] Comment on above: Performed By: #### B MPLC, LIPIDLC #### [facility] [address] [place] [address] Dr. David Brown Urea nitrogen/Creatinine [Mass ratio] 18 mg/mg Normal 9-20 [facility] Comment on above: Performed By: #### B MPLC, LIPIDLC #### [facility] [address] [place] [address] Dr. David Brown CBC AUTO DIFFon 02-03-2023 BASO # 0.1 103/ul Normal 0.0-0.1 [facility] Comment on above: Performed By: #### C BC #### [facility] [address] [place] [address] Dr. David Brown Basophils/100 WBC (Bld) 0.6 % Normal 0.2-2.0 [facility] Comment on above: Performed By: #### C BC #### [facility] [address] [place] [address] Dr. David Brown EO # 0.2 103/ul Normal 0.0-0.7 [facility] Comment on above: Performed By: #### C BC #### [facility] [address] [place] [address] Dr. David Brown Eosinophils/100 WBC (Bld) 2.2 % Normal 0.9-7.0 [facility] Comment on above: Performed By: #### C BC #### [facility] [address] [place] [address] Dr. David Brown Erythrocyte distribution width (RBC) [Ratio] 12.7 % Normal 11.0-15.0 [facility] Comment on above: Performed By: #### C BC #### [facility] [address] [place] [address] Dr. David Brown Hematocrit (Bld) [Volume fraction] 43.6 % Normal 42.0-54.0 [facility] Comment on above: Performed By: #### C BC #### [facility] [address] [place] [address] Dr. David Brown Hemoglobin (Bld) [Mass/Vol] 14.6 g/dL Normal 14.0-18.0 [facility] Comment on above: Performed By: #### C BC #### [facility] [address] [place] [address] Dr. David Brown IG # 0.03 10e3/ul Normal 0.00-0.03 [facility] Comment on above: Performed By: #### C BC #### [facility] [address] [place] [address] Dr. David Brown IG % 0.3 % Normal 0.0-0.5 [facility] Comment on above: Performed By: #### C BC #### [facility] [address] [place] [address] Dr. David Brown LYMPH # 3.6 103/ul Normal 1.2-3.8 [facility] Comment on above: Performed By: #### C BC #### [facility] [address] [place] [address] Dr. David Brown Lymphocytes/100 WBC (Bld) 37.8 % Normal 20.5-60.0 [facility] Comment on above: Performed By: #### C BC #### [facility] [address] [place] [address] Dr. David Brown MANUAL DIFF REQ NO Normal [facility] Comment on above: Performed By: #### C BC #### [facility] [address] [place] [address] Dr. David Brown MCH (RBC) [Entitic mass] 28.3 pg Normal 25.9-34.0 [facility] Comment on above: Performed By: #### C BC #### [facility] [address] [place] [address] Dr. David Brown MCHC (RBC) [Mass/Vol] 33.5 g/dL Normal 29.9-35.2 [facility] Comment on above: Performed By: #### C BC #### [facility] [address] [place] [id number] David Brown MCV (RBC) [Entitic vol] 84.7 fL Normal 80.0-94.0 [facility] Comment on above: Performed By: #### C BC #### [facility] [address] [place] [id number] David Brown MONO # 0.9 103/ul Critically high 0.3-0.8 [facility] Comment on above: Performed By: #### C BC #### [facility] [address] [place] [id number] David Brown Monocytes/100 WBC (Bld) 9.6 % Normal 1.7-12.0 [facility] Comment on above: Performed By: #### C BC #### [facility] [address] [place] [address] [address] David Brown NEUT # 4.8 103/ul Normal 1.4-6.5 [facility] Comment on above: Performed By: #### C BC #### [facility] [address] [place] [address] [address] David Brown Neutrophils/100 WBC (Bld) 49.5 % Normal 43.0-75.0 [facility] Comment on above: Performed By: #### C BC #### [facility] [address] [place] [id number] David Brown Platelet mean volume (Bld) [Entitic vol] 12.0 fL Normal 9.5-13.5 [facility] Comment on above: Performed By: #### C BC #### [facility] [address] [place] [address] [address] David Brown PLT 254 103/ul Normal 150-450 [facility] Comment on above: Performed By: #### C BC #### [facility] [address] [place] [id number] David Brown RBC 5.15 106/ul Normal 4.70-6.10 [facility] Comment on above: Performed By: #### C BC #### [facility] [address] [place] [id number] David Brown WBC 9.6 103/ul Normal 4.0-11.0 [facility] Comment on above: Performed By: #### C BC #### [facility] [address] [place] [address] Dr. David Brown GLYCOHEMOGLOBIN A1Con 2022 ADA RECOMMENDATION SEE BELOW Normal [facility] Comment on above: Result Comment: ADA RECOMMENDED LIMIT 4.0 - 6.0 ADA THERAPEUTIC TARGET < 7.0 ACTION SUGGESTED > 7.0 Performed By: #### A 1C #### [facility] [address] [place] [address] Dr. David Brown Glucose [Mass/Vol] 212 mg/dL Normal [facility] Comment on above: Performed By: #### A 1C #### [facility] [address] [place] [address] Dr. David Brown HbA1c (Bld) [Mass fraction] 9.0 % Critically high 4.5-6.2 [facility] Comment on above: Performed By: #### A 1C #### [facility] [address] [place] [address] Dr. David Brown MICROALBUMIN, RAND URon 03- mALB 5.5 mg/L Normal <=30.0 [facility] Comment on above: Performed By: #### M ALBR #### [facility] [address] [place] [address] Dr. David Brown GLYCOHEMOGLOBIN A1Con 2021 ADA RECOMMENDATION SEE BELOW Normal [facility] Comment on above: Result Comment: ADA RECOMMENDED LIMIT 4.0 - 6.0 ADA THERAPEUTIC TARGET < 7.0 ACTION SUGGESTED > 7.0 Performed By: #### A 1C #### [facility] [address] [place] [address] Dr. David Brown Glucose [Mass/Vol] 194 mg/dL Normal [facility] Comment on above: Performed By: #### A 1C #### [facility] [address] [place] [address] Dr. David Brown HbA1c (Bld) [Mass fraction] 8.4 % Critically high 4.5-6.2 [facility] Comment on above: Performed By: #### A 1C #### [facility] [address] [place] [address] [address] David Brown Vital Signs Date Time Vital Sign Value Performing Clinician Facility 07-18-2025 13:28-0400 Body height 160.02 cm Semaj Ball DO Work Phone: [facility] 07-18-2025 13:28-0400 Body mass index (BMI) [Ratio] 47.3 kg/m2 Semaj Ball DO Work Phone: [facility] 07-18-2025 13:28-0400 Body weight 121.16 kg Semaj Ball DO Work Phone: [facility] 07-18-2025 13:28-0400 Diastolic blood pressure 80 mm[Hg] Semaj Ball DO Work Phone: [facility] 07-18-2025 13:28-0400 Heart rate 120 /min Semaj Ball DO Work Phone: [facility] 07-18-2025 13:28-0400 Respiratory rate 16 /min Semaj Ball DO Work Phone: [facility] 07-18-2025 13:28-0400 Systolic blood pressure 130 mm[Hg] Semaj Ball DO Work Phone: [facility] 04-12-2025 11:04-0400 Body height 160.02 cm [facility] 04-12-2025 11:04-0400 Body mass index (BMI) [Ratio] 44.9 kg/m2 [facility] 04-12-2025 11:04-0400 Body weight 115.21 kg [facility] 04-12-2025 11:04-0400 Diastolic blood pressure 89 mm[Hg] [facility] 04-12-2025 11:04-0400 Heart rate 116 /min [facility] 04-12-2025 11:04-0400 Respiratory rate 20 /min [facility] 04-12-2025 11:04-0400 Systolic blood pressure 139 mm[Hg] [facility] 04-05-2025 13:05-0400 Body height 165.1 cm Rodrick Dolce DPM FACFAS Work Phone: [facility] 04-05-2025 13:05-0400 Body mass index (BMI) [Ratio] 39.94 kg/m2 Rodrick Dolce DPM FACFAS Work Phone: [facility] 04-05-2025 13:05-0400 Body weight 108.86 kg Rodrick Dolce DPM FACFAS Work Phone: [facility] 04-05-2025 13:05-0400 Diastolic blood pressure 75 mm[Hg] Rodrick Dolce DPM FACFAS Work Phone: [facility] 04-05-2025 13:05-0400 Heart rate 73 /min Rodrick Dolce DPM FACFAS Work Phone: [facility] 04-05-2025 13:05-0400 Systolic blood pressure 130 mm[Hg] Rodrick Dolce DPM FACFAS Work Phone: [facility] 10-19-2024 14:35-0500 Body height 165.1 cm Rodrick Dolce DPM FACFAS Work Phone: [facility] 10-19-2024 14:35-0500 Body mass index (BMI) [Ratio] 39.94 kg/m2 Rodrick Dolce DPM FAC[employer]AS Work Phone: [facility] 10-19-2024 14:35-0500 Body weight 108.86 kg Rodrick Dolce DPM FAC[employer]AS Work Phone: [facility] 10-19-2024 14:35-0500 Diastolic blood pressure 75 mm[Hg] Rodrick Dolce DPM FAC[employer]AS Work Phone: [facility] 10-19-2024 14:35-0500 Heart rate 72 /min Rodrick Dolce DPM [employer]AC[employer]AS Work Phone: [facility] 10-19-2024 14:35-0500 Systolic blood pressure 130 mm[Hg] Rodrick Dolce DPM FACFAS Work Phone: [facility] 10-04-2024 08:46-0500 Body height 160 cm Orly Curt DO Work Phone: [facility] 10-04-2024 08:46-0500 Body mass index (BMI) [Ratio] 42.51 kg/m2 Orly Curt DO Work Phone: [facility] 10-04-2024 08:46-0500 Body weight 108.86 kg Orly Curt DO Work Phone: [facility] 10-04-2024 08:46-0500 Diastolic blood pressure 76 mm[Hg] Orly Curt DO Work Phone: [facility] 10-04-2024 08:46-0500 Heart rate 99 /min Orly Curt DO Work Phone: [facility] 10-04-2024 08:46-0500 SaO2% (BldA) [Mass fraction] 91 % Orly Curt DO Work Phone: [facility] 10-04-2024 08:46-0500 Systolic blood pressure 132 mm[Hg] Orly Curt DO Work Phone: [facility] 08-03-2024 14:01-0400 Body height 165.1 cm Rodrick Dolce DPM FACFAS Work Phone: [facility] 08-03-2024 14:01-0400 Body mass index (BMI) [Ratio] 43.43 kg/m2 Rodrick Dolce DPM FACFAS Work Phone: [facility] 08-03-2024 14:01-0400 Body weight 118.39 kg Rodrick Dolce DPM FACFAS Work Phone: [facility] 08-03-2024 14:01-0400 Diastolic blood pressure 80 mm[Hg] Rodrick Dolce DPM FACFAS Work Phone: [facility] 08-03-2024 14:01-0400 Heart rate 85 /min Rodrick Dolce DPM FACFAS Work Phone: [facility] 08-03-2024 14:01-0400 Systolic blood pressure 130 mm[Hg] Rodrick Donohue DPM FACFAS Work Phone: [facility] 07-28-2023 09:30-0400 Body height 160.02 cm Semaj Ball Other [facility] Other 07-28-2023 09:30-0400 Body mass index (BMI) [Ratio] 47.33 kg/m2 Semaj Ball Other [facility] Other 07-28-2023 09:30-0400 Body weight 121.2 kg Semaj Ball Other [facility] Other 07-28-2023 09:30-0400 Diastolic blood pressure 87 mm[Hg] Semaj Ball Other [facility] Other 07-28-2023 09:30-0400 Respiratory rate 12 /min Semaj Ball Other [facility] Other 07-28-2023 09:30-0400 Systolic blood pressure 132 mm[Hg] Semaj Ball Other [facility] Other 01-25-2023 12:30-0400 Body height 160.02 cm Semaj Ball Other [facility] Other 01-25-2023 12:30-0400 Body mass index (BMI) [Ratio] 47.75 kg/m2 Semaj Ball Other [facility] Other 01-25-2023 12:30-0400 Body weight 122.29 kg Semaj Ball Other [facility] Other 01-25-2023 12:30-0400 Diastolic blood pressure 82 mm[Hg] Semaj Ball Other [facility] Other 01-25-2023 12:30-0400 Respiratory rate 12 /min Semaj Avery Other [facility] Other 01-25-2023 12:30-0400 Systolic blood pressure 130 mm[Hg] Semaj Avery Other [facility] Other Encounters Encounter Date Encounter Type Care Provider Facility Start: 07-18-2025 End: 07-18-2025 ambulatory Semaj Avery DO Work Phone: [facility] Work Phone: Start: 07-18-2025 End: 07-18-2025 Patient encounter procedure Semaj Avery DO -[facility] Work Phone: Start: 06-27-2025 Non-patient / Non-visit Semaj Trinidad onofre [facility] [facility] Work Phone: Start: 04-12-2025 End: 04-12-2025 ambulatory [facility] Work Phone: Start: 04-12-2025 End: 04-12-2025 Patient encounter procedure [facility] Work Phone: Start: 04-05-2025 End: 04-05-2025 Bamboo [...] Start: 10-04-2024 End: 10-04-2024 Bamboo flowsheet Orly Curt DO Work Phone: [employer] [address] Start: 10-04-2024 End: 10-04-2024 Bamboo flowsheet Orly Curt DO Work Phone: [employer] [address] Start: 10-04-2024 End: 10-04-2024 Office outpatient new 45 minutes Orly Curt DO Work Phone: [employer] [address] Comment on above: LUÍS (obstructive sle ep apnea) (Primary Dx); Hypoxia; Hypersomnia; Snoring Start: 10-04-2024 End: 10-04-2024 ambulatory ORLY HERRING Not Available Start: 08-03-2024 End: 08-03-2024 Bamboo [...] and manag ement of inpatient DELGADO GUIDO [facility] Start: 01-01-2024 End: 01-06-2024 Evaluation and management of inpatient SEMAJ AVERY [facility] Start: 11-02-2023 End: 11-02-2023 ambulatory Semaj Avery Other [facility] Other Start: 11-02-2023 Telephone encounter Semaj Dawkins [facility] Start: 10-29-2023 End: 10-29-2023 ambulatory Semaj Avery Other [facility] Other Start: 10-29-2023 Telephone encounter Semaj Dawkins [facility] Start: 10-27-2023 End: 10-27-2023 ambulatory Semaj Avery Other [facility] Other Start: 10-27-2023 Telephone encounter Semaj MILES [facility] Start: 10-05-2023 End: 10-05-2023 ambulatory Semaj Avery Other [facility] Other Start: 10-05-2023 Telephone encounter Semaj MILES [facility] Start: 08-09-2023 End: 08-09-2023 ambulatory Edi Henriquez Facility:[facility] Start: 07-28-2023 End: 07-28-2023 ambulatory Semaj Avery Other [facility] Other Start: 07-28-2023 Office outpatient vi sit 25 minutes Semaj Avery [facility] Start: 07-28-2023 Telephone encounter Semaj Avery [facility] Start: 02-04-2023 End: 02-04-2023 ambulatory Semaj Avery Other [facility] Other Start: 02-04-2023 Telephone encounter Semaj MILES [facility] Start: 02-03-2023 Telephone encounter Semaj MILES [facility] Start: 02-03-2023 End: 02-04-[address] SEMAJ AVERY [facility] Other Start: 01-25-2023 End: 01-25-2023 ambulatory Semaj Avery Other [facility] Other Start: 01-25-2023 Encounter for genera l adult medical examination without abnormal findings Semaj Avery [facility] Start: 01-25-2023 Initial preventive exam Semaj Bal l [facility] Start: 01-25-2023 Patient encounter procedure Semaj Avery [facility] Start: 08-07-2022 End: 08-08-[address] SEMAJ AVERY Facility:H1 Procedures Date Procedure Procedure Detail Performing Clinician Start: 02-03-[address] ROOT IN [place] Comment on above: Performed By: #### P [facility] #### [facility] [address] [place] [address] Dr. David Brown Plan of Treatment Date Care Activity Detail Author Start: 07-09-2025 Influenza vaccination Influenz a Vaccine (Season Ended) [facility] Start: 06-14-2025 End: 06-14-2025 Patient encounter procedure 06/14/2025 1:00 PM EDT Procedure Visit [facility] [address] [place] [phone] Dolce, Rodrick R, DPM FACFAS [address] [place] [address] [facility] Start: 04-05-2025 End: 04-05-2025 Patient encounter procedure 04/05/2025 1:00 PM EDT Office Visit [facility] [address] [place] [phone] Dolce, Rodrick R, DPM FACFAS [address] [place] [address] Arrived [facility] Comment on above: Arrived Start: 01-11-2025 End: 01-11-2025 Patient encounter procedure 01/11/2025 2:30 PM EST Office Visit [facility] [address] [place] [phone] Dolce, Rodrick R, DPM FACFAS [address] [place] [address] Arrived [facility] Comment on above: Arrived Start: 12-28-2024 End: 12-28-2024 Patient encounter procedure 12/28/2024 2:30 PM EST Office Visit [facility] [address] [place] [address] Dolce, Rodrick R, DPM FACFAS [address] [facility] [place] [address] [facility] Start: 10-19-2024 End: 10-19-2024 Patient encounter procedure 10/19/2024 2:30 PM EST Office Visit [facility] [address] [place] [phone] Dolce, Rodrick R, DPM FACFAS [address] [place] [address] Arrived [facility] Comment on above: Arrived Start: 10-12-2024 End: 10-12-2024 Patient encounter procedure 10/12/2024 2:50 PM EST Office Visit [facility] [address] [place] [phone] Rodrick Donohue R, DPM FACFAS [address] [place] [address] [facility] Start: 10-04-2024 End: 10-04-2024 Patient encounter procedure 10/04/2024 9:00 AM EST Office Visit HEATHER DOS SANTOS [facility] [address] [place] [phone] Orly Herring, [address] [place] [address] Arrived [facility] Comment on above: Arrived Start: 08-03-2024 End: 08-03-2024 Patient encounter procedure 08/03/2024 2:00 PM EDT Office Visit [facility] [address] [place] [phone] Rodrick Donohue, DPM FACFAS [address] [place] [address] Arrived [facility] Comment on above: Arrived Start: 07-09-2024 Influenza vaccination Influenza Vacc ine (#1) [facility] Start: 1970 Screening for malign ant neoplasm of colon [facility] Comprehensive metabo lic 2000 panel - Serum or Plasma [facility] Immunizations Immunization Date Immunization Notes Care Provider Fa cility 09-04-2022 influenza, injectabl e, quadrivalent, contains preservative Semaj Avery Other [facility] Other 09-04-2022 COVID-19 Pfizer (bivalent) Semaj Avery Other [facility] 09-04-2022 COVID-19 Pfizer (Pediatric) Semaj Avery Other [facility] 09-04-2022 influenza virus vaccine, split virus (incl. purified surface antigen) Semaj Avery Other [facility] [employer] Other 09-04-2022 influenza, injectabl e, quadrivalent, preservative free [facility] 09-04-2022 influenza virus vaccine, unspecified formulation Rodrick Donohue DPM FACFAS Work Phone: [facility] 04-18-2022 zoster vaccine recombinant Semaj Avery Other [facility] 04-18-2022 zoster vaccine, live Benjami n Bennie Other [facility] 02-13-2022 COVID-19 Vaccine Pfi zer - Documentation Purposes Only Semaj Avery Other [facility] 02-13-2022 Prevnar 20 Semaj Avery Other [facility] 02-13-2022 zoster vaccine recombinant Semaj Avery Other [facility] 02-13-2022 zoster vaccine, live Benjami n Bennie Other [facility] 09-30-2021 COVID-19 Vaccine Pfi zer - Documentation Purposes Only Semaj Avery Other [facility] 02-11-2021 COVID-19 Vaccine Pfi zer - Documentation Purposes Only Semaj Avery Other [facility] 01-20-2021 COVID-19 Vaccine Pfi zer - Documentation Purposes Only Semaj Avery Other [facility] 07-22-2020 influenza virus vaccine, split virus (incl. purified surface antigen) Semaj Avery Other [facility] [employer] Other 07-22-2020 influenza virus vaccine, unspecified formulation [facility] 09-13-2017 tetanus and diphther ia toxoids, adsorbed, preservative free, for adult use (5 Lf of tetanus toxoid and 2 Lf of diphtheria toxoid) Semaj Avery Other [facility] Payers Date Payer Category Payer Medicare AETNA MEDICARE A DVANTAGE AETNA MEDICARE REPLACEMENT [id number] 2024-Present [address] [place] [address] [id number] 2024 Medicare [id number] 2023 Self-pay 2022 Medicaid [id number] 1970 Unknown [id number] 1969 Unknown [id number] 1969 Unknown [id number] 1969 Unknown [id number] [id number] 1969 Unknown [id number] 1969 Unknown [id number] [id number] 1969 Unknown [id number] [id number] 1969 Unknown [id number] [id number] 1969 Unknown [id number] [id number] 1969 Unknown [id number] 1960 Medicaid [id number] 1960 Medicare [id number] [id number] Unknown [id number] Social History Date Type Detail Facility Start: 08-03-2024 End: 01-11-2025 Sex Assigned At [facility] [employer] Other Start: 04-08-2023 End: 02-25-2024 Tobacco smoking status NHIS Never smoked tobacco [facility] Start: 04-08-2023 Tobacco use and exposure Smokeless tobacco non-user [facility] Start: 10-04-2024 End: 04-05-2025 Alcoholic beverage intake Lifetime non-drinker (finding) [facility] Start: 08-03-2024 End: 01-11-2025 History of Social function [facility] Start: 04-05-2023 Alcohol Comment Hasn't drank a lcohol in the past 12 months [facility] Start: 1970 Sex assigned at Not on file [facility] Start: 10-04-2024 Tobacco use and exposure User of smokeless tobacco [facility] Start: 04-12-2025 Sex Male (finding) [facility] Start: 1970 Sex Assigned At Male F [facility] Medical Equipment Procedure Code Equipment Code Equipment Origin al Text Equipment Identifier Dates Blood Sugar Diagnostic (Onetouch Verio Test Strips) strip Start: 04-09-2025 Blood Sugar Diagnostic (Onetouch Verio Test Strips) strip Start: 03-16-2024 End: 03-23-2024 Blood Sugar Diagnostic ([employer]et[employer] Verio Test Strips) strip Start: 03-23-2024 End: 04-09-2025 Blood Sugar Diagnostic ([employer]et[employer] Verio Test Strips) strip Start: 04-09-2025 Blood Sugar Diagnostic ([employer]et[employer] Verio Test Strips) strip Start: 03-16-2024 End: 03-23-2024 Blood Sugar Diagnostic ([employer]et[employer] Verio Test Strips) strip Start: 03-23-2024 End: 04-09-2025 Clinical Notes 01-25-2023 to 04-05-2025 Rodrick Donohue, BEREKET FACFAS - 04/05/2025 1:00 PM EDTRodrick Donouhe, JOSÉ MIGUELCharles FACFAS - 10/19/2024 2:30 PM Misha Herring DO - 10/04/2024 9:00 AM Eladia Donohue, DPCharles FACFAS - 08/03/2024 2:00 PM EDT Note Date & Type Note Facility 04-05-2025 History of Presen t illness Narrative Images from the original note were not included. patient: Vitaly Dobson : 1970 PCP: Semaj Avery DO SUBJECTIVE This is a 54 y.o. [...] Medical History: Diagnosis Date Ankylosing spondylitis Diabetes ([facility]/HCC) Hypertension ([facility]) Pulmonary embolism Subdural hematoma ([facility]) Medications: Current Outpatient Medications: apixaban (Eliquis) 5 [...] subungual debris. They were painful to palpation [phone] on the right 07971 on the left. VASC: DP /PT were nonpalpable bilateral. Capillary refill time < 3 seconds Digits 1-5 bilateral NEURO: Adrian Rafaela 5.07 monofilament was diminished B/L. Vibratory sensation was diminished b/l. Mild peripheral neuropathy noted in a stocking-glove orientation Musculoskeletal: Muscle strength was +5 over 5 all intrinsic and extrinsic muscles tested. Radiographs: AP/MO/LAT: Diagnostic ultrasound: ASSESSMENT 1. Onychomycosis 2. Type II diabetes mellitus with neurological manifestations ([facility]) 3. Pain in right toe(s) 4. Pain [...] have their nails trimmed only by a paste up worker to reduce the risk of injury or [...] intervention. BEREKET Medina documented in this encounter [facility] 10-19-2024 History of Presen t illness Narrative [...] subungual debris. They were painful to palpation [phone] on the right 62234 on the left. VASC: DP /PT were nonpalpable bilateral. Capillary refill time < 3 seconds Digits 1-5 bilateral NEURO: Adrian Rafaela 5.07 monofilament was diminished B/L. Vibratory [...] have their nails trimmed only by a paste up worker to reduce the risk of injury or [...] intervention. BEREKET Medina documented in this encounter [facility] 10-04-2024 History of Presen t illness Narrative Images from the original note were not included. Chief Complaint Patient presents with Sleep Apnea Subjective Vitaly Goldsteinromy, 53 y.o., male being seen for Sleep [...] not get comfortable enough to sleep. His [place] Sleepiness scale is a 7. He does have underlying obesity and needs to be more aggressive with diet exercise weight loss. Plan PSG was reviewed with him BiPAP titration was reviewed with him [place] Sleepiness scale is 7 Compliance data was reviewed and he is not compliant. He was counseled on need to be compliant and ways to do that. The patient was counseled on the need for aggressive diet, exercise, and weight loss. The patient was counseled on proper sleep hygiene and adequate hours of sleep. The patient was counseled on the risks of stroke, [place], and sudden with LUÍS, along with the [...] clinic: 2 months documented in this encounter [facility] 08-03-2024 History of Presen t illness Narrative [...] History: Past Medical History: Diagnosis Date Diabetes ([facility]) Medications: Current Outpatient Medications: apixaban (Eliquis) 5 [...] subungual debris. They were painful to palpation [phone] on the right 51427 on the left. VASC: DP /PT were nonpalpable bilateral. Capillary refill time < 3 seconds Digits 1-5 bilateral NEURO: Adrian Rafaela 5.07 monofilament was diminished B/L. Vibratory [...] 10. BEREKET Medina documented in this encounter [facility] 11-02-2023 Evaluation note Encounter Date Diagnosis Assessment Notes Oct, Ankylosing spondylitis of thoracolumbar region (ICD-10 - M45.5) [facility] Other 12-22-2023 Evaluation note* Encounter Date Diagnosis Assessment Notes Treatment Notes Treatment Clinical Notes Oct, Type 2 diabetes mellitus with hyperglycemia, without long-term current use of insulin (ICD-10 - E11.65) [facility] Other 11-28-2023 Evaluation note* Encounter Date Diagnosis Assessment Notes Treatment Notes Treatment Clinical Notes Sep, Type 2 diabetes mellitus with hyperglycemia, without long-term current use of insulin (ICD-10 - E11.65) [facility] Other 09-20-2023 Evaluation note* Encounter Date Diagnosis [...] restricting calories/portions Increase COSTELLO to 6mg daily 20 Sep, 2023 Primary hypertension (ICD-10 - I10) This patient [...] lidocaine patches and muscle relaxants at HS [facility] Other 09-20-2023 NoteProcedure(s): XR cervical spine 2-3V [facility] Other 09-20-2023 NoteProcedure: XR cervical spine 2-3V[facility] Other 09-20-2023 NoteProcedure(s): XR thoracic spine 2V[facility] Other 09-20-2023 NoteProcedure: XR thoracic spine 2V[facility] Other 09-20-2023 NoteProcedure(s): XR lumbar spine 2-3V[facility] Other 09-20-2023 NoteProcedure: XR lumbar spine 2-3V[facility] Other 03-30-2023 Evaluation note* Encounter Date Diagnosis Assessment Notes Treatment Notes Treatment Clinical Notes Jan, Mixed hyperlipidemia (ICD-10 - E78.2) [facility] Other 03-29-2023 Evaluation note* Encounter Date Diagnosis Assessment Notes Treatment Notes Treatment Clinical Notes Jan, Type 2 diabetes mellitus with hyperglycemia, without long-term current use of insulin (ICD-10 - E11.65) [facility] Other 03-20-2023 Evaluation note* Encounter Date Diagnosis [...] reviewed and amended by provider signed below. [facility] Other Evaluation [facility]No [facility] Other Evaluation note* Diagnosis LUÍS (obstructive sleep apnea)- Primary Obstructive sleep apnea (adult) (pediatric) Hypoxia Hypoxemia Hypersomnia Hypersomnia, unspecified Snoring Other dyspnea and respiratory abnormality documented in this encounter [facility] Healthcare[facility]* Diagnosis Onychomycosis- Primary Dermatophytosis of nail Type II diabetes mellitus with neurological manifestations (CMS/HCC) Type II or unspecified type diabetes mellitus with neurological manifestations, not stated as uncontrolled Pain in right toe(s) Pain in left toe(s) documented in this encounter [facility] Healthcare[facility] note* Diagnosis Onychomycosis- Primary Dermatophytosis of nail Type II diabetes mellitus with neurological manifestations (CMS/HCC) Type II or unspecified type diabetes mellitus with neurological manifestations, not stated as uncontrolled Pain in right toe(s) Pain in left toe(s) documented in this encounter [facility]* Diagnosis Onychomycosis- Primary Dermatophytosis of nail Type II diabetes mellitus with neurological manifestations (CMS/HCC) Type II or unspecified type diabetes mellitus with neurological manifestations, not stated as uncontrolled Pain in right toe(s) Pain in left toe(s) documented in this encounter [facility] Healthcare[facility]* Diagnosis Onset Date Resolution [...] acute April 122024 10:53am Pulmonary hypertension acute Ju ne 2024 10:53am Type 2 diabetes mellitus wit h hyperglycemia acute April 12, 2025 10:53am [facility] Work Phone: Evaluation note* Diagnosis Onset Date Resolution Status Admit Date Ankylosing spondylitis acute Se pt2024 1:20pm Essential hypertension acute Se pt2024 1:20pm Hx of pulmonary embolus acute S eptember 2024 1:20pm Hypercholesterolemia acute Sept emb2024 1:20pm Obesity acute July 1:20pm LUÍS (obstructive sleep apnea) acute July 18, 2025 1:20pm Pulmonary hypertension acute Se pt2024 1:20pm Screening PSA (prostate spec ific antigen) acute July 18, 2025 1:20pm Type 2 diabetes mellitus wit h hyperglycemia acute July 18, 2025 1:20pm Medicare annual wellness vis it, subsequent noneactive July 18, 2025 1:20pm [facility] Work Phone: History general Narrative - Reported* [...] HEM ATOMA Hospitalization History SEE SURGICAL HX [place] [facility] Other Reason for referral (narrative)* Reason Referral for ankylos ing spondylitis Diagnosis 1 Ankylosing spondylit is of thoracolumbar region (M45.5) Diagnosis 2 Scoliosis (and kypho scoliosis), idiopathic (M41.20) Diagnosis 3 Cervical spondylosis (M47.812) Referral Organization [facility] Tali simental Referring Provider First Name Semaj Referring Provider Last Name Bennie Referring Provider Specialty Internal Me dicine Referred Organization Unknown Facility Referred Provider Edi Henriquez Referred Provider Specialty Rheumatology Referral Priority Routine General Notes Mr. Pocock has sever e degenerative arthritis of the [...] medical treatment. Clinical Notes Include XR reports [facility] Other Reason for referral (narrative)No reason for referral [facility] Work Phone: Summary Purpose Family History Relationship Condition Age [...] with hyperglyce filemon April 12, 2025 10:53am Chief Complaint Admit Date 3 month July 18, 2025 1:20pm Reason for Visit Admit Date Ankylosing spondylitis July 18 025 1:20pm Essential hypertension July 18 2 025 1:20pm Hx of pulmonary embolus July 18, 2025 1:20pm Hypercholesterolemia July 18 1:20pm Obesity July 18, 2025 1:20pm LUÍS (obstructive sleep apnea) July 18, 2025 1:20pm Pulmonary hypertension July 18 025 1:20pm Screening PSA (prostate specific antigen ) July 18, 2025 1:20pm Type 2 diabetes mellitus with hyperglyce filemon July 18, 2025 1:20pm Medicare annual wellness visit, sancheze nt July 18, 2025 1:20pm Additional Source Comments REASON FOR VISIT (unrecogniz ed section and content) Reason Comments Sleep Apnea Reason Comments Toenail Care Non DM nail care Reason Comments DM Foot Care Dm nail care (unrecognized sect ion and content) No Status Records FoundNo Status Records FoundNo Status Records FoundNo Status Records Found INFORMATION SOURCE (unrecogn ized section and content) DATE CREATED AUTHOR 02/14/2023 [facility] DATE CREATED AUTHOR AUTHOR'S ORGANIZ ATION 08/18/2023 [facility] DATE CREATED AUTHOR AUTHOR'S ORGANIZ ATION 01/13/2024 [facility] DATE CREATED AUTHOR AUTHOR'S ORGANIZ ATION 04/07/2025 [facility] dical Specialists EPIC Care Teams (unrecognized sec tion and content) Team Status: Active Member Role Status Dates Semaj Avery DO Primary Care Provider Active Team Status: Active Member Role Status Dates Semaj Avery DO Primary Care Provider Active Start: June 27, 2025 Semaj Avery DO Attending Provider Active Sta rt: June 27, 2025 Team Status: Inactive Member Role Status Dates Semaj Avery DO Primary Care Provider Active Start: July 18, 2025 End: July 18, 2025 Semaj Avery DO Attending Provider Active Sta rt: July 18, 2025 End: July 18, 2025 [employer] Relationship Specialty Start Date End Date Semaj Avery MD [address] [place] [id number] PCP - General Internal Medicine 04/08/23 [employer] Relationship Specialty Start Date End Date Semaj Avery MD [address] [place] [id number] PCP - General Internal Medicine 04/08/23 [employer] Relationship Specialty Start Date End Date Semaj Avery MD [address] [place] [phone] PCP - General Internal Medicine 04/08/23 [employer] Relationship Specialty Start Date End Date Semaj Avery MD [address] [place] [id number] PCP - General Internal Medicine 04/08/23 [employer] Relationship Specialty Start Date End Date Semaj Avery DO [address] [facility] [place] [id number] PCP - General Internal Medicine 04/08/23 [employer] Relationship Specialty Start Date End Date Semaj Avery DO [address] [facility] [place] [phone] PCP - General Internal Medicine 04/08/23 Team Status: Active Member Role Status Dates Semaj Avery DO Primary Care Provider Active Team Status: Inactive Member Role Status Dates Semaj Avery DO Primary Care Provide r, Attending Provider Active Start: April 12, 2025 End: April 12, 2025 Team Status: Active Member Role Status Dates Semaj Avery DO Primary Care Provider Active Start: June 27, 2025 Semaj Avery DO Attending Provider Active Sta rt: June 27, 2025 Team Status: Inactive Member Role Status Dates Semaj Avery DO Primary Care Provider Active Start: July 18, 2025 End: July 18, 2025 Semaj Avery , DO Attending Provider Active Sta rt: July 18, 2025 End: July 18, 2025 Goals (unrecognized section and content) Goals [...] BE BASED ON THE PRIMARY CLINICAL RECORDS. [employer] provides no warranty or guarantee of the accuracy or completeness of information in this document.
[2025-08-02 11:21] LABS: Hematocrit 46.6 % (42.0-54.0); Hemoglobin 14.9 g/dL (14.0-18.0); Immature Granulocytes Abs Auto 0.02 10^3/uL (0.00-0.03); Immature Granulocytes Pct Auto 0.2 % (0.0-0.5); Lymphocytes Absolute Auto 2.3 10^3/uL (1.2-3.8); Mean Corpuscular HGB Conc 32.0 g/dL (29.9-35.2); Mean Corpuscular Hemoglobin 28.0 pg (25.9-34.0); Mean Corpuscular Volume 87.6 fL (80.0-94.0); Platelet Count 206 10^3/uL (150-450); Red Blood Count 5.32 10^6/uL (4.70-6.10); White Blood Count 8.1 10^3/uL (4.0-11.0)
[2025-08-02 11:39] LABS: Alanine Aminotransferase 38 U/L (16-63); Albumin Globulin Ratio 0.8; Albumin Level 3.8 g/dL (3.4-5.0); Alkaline Phosphatase 37 U/L (46-116); Anion Gap 12.9; Aspartate Amino Transferase 23 U/L (15-37); Blood Urea Nitrogen 14.0 mg/dL (7.0-18.0); Calcium 9.0 mg/dL (8.5-10.1); Carbon Dioxide 27.9 mmol/L (21.0-32.0); Chloride 101 mmol/L (98-107); Estimated GFR (African America >60 (>=60 mL/min/1.73m^2); Estimated GFR (Non-African Ame >60 (>=60 mL/min/1.73m^2); Globulin 4.7 g/dL; Glucose 134 mg/dL (74-106); Potassium 3.8 mmol/L (3.5-5.1); Sodium 138 mmol/L (136-145); Total Protein 8.5 g/dL (6.4-8.2)
== END 2025-08-02 10:40 | disposition home or self-care (01) ==
LOC: LAB 10:41
PROVIDERS: PCP Internal Medicine; Visit Provider Registered Nurse
DX: M45.9 Ankylosing spondylitis of unspecified sites in spine (principal); M10.09 Idiopathic gout, multiple sites; Z79.899 Other long term (current) drug therapy
CPT/HCPCS: 36415; 80053; 85025; 85652

== ENCOUNTER 2025-08-02 10:48 | Outpatient (OUT) | payer MEDICARE, OTHER, SELFPAY ==
--- OUTSIDE RECORDS SUMMARY | 2025-08-02 10:58 | XMS_ITS | CCD ---
Author Organization [facility] Care Team Providers Care Commutator Undercutter Name Role Phone Semaj Avery Unavailable BENNIE, [...] Care Provider Semaj Avery DO Attending Provider [phone] Medications Current Medications Medication Drug Class(es) Dates [...] drug therapy Start: 07-21-2024 End: 06-04-2025 Ipratropium Ambrose 42 mcg ( 0.06 %) spray,non-aerosol Discontinued 2 SPRAY INTRANASAL daily 45 90 May 29, 2025 10:29pm June 04, 2025 2:44pm Start: 02-25-2024 End: 07-21-2024 take 1 mL by inhalation every six hours as needed Ipratropium Ambrose 0.02 % solution Discontinued 2.5 ML INHALATION Every 6 hours as needed February 25, 2024 12:00am July 21, 2024 12:50pm Start: 08-11-2023 ipratropium (A trovent) 0.06 % nasal spray 08/11/2023 Active Start: 03-31-2022 End: 02-25-2024 Ipratropium Ambrose 42 mcg ( 0.06 %) spray,non-aerosol Discontinued [...] route three times daily as needed Ipratropium Ambrose 0.06 % 2 sprays in each nostril [...] 2024 4:43pm take 1 capsule by mo [facility] at bedtime Melatonin 3 MG capsule Take [...] Active Start: 12-23-2022 take 1 capsule by [facility] once daily at bedtime tiZANidine (Zanaflex) [...] BS 4x daily Blood-Glucose,Recei ben,Cont (Dexcom G7 Scrap Metal Burner) misc (2 sources) Start: 02-29-2024 End: 03-23-2024 Blood-Glucose,Recei ben,Cont (Dexcom G7 Scrap Metal Burner) misc Discontinued 0 .Route 1 February 29, [...] 3 doses per episode polyethylene glycol 3350 85687 mg powder for oral solution (9 sources) [...] 10-19-2024 Episodic Other aftercare (3 sources) Other thread reeler (current) drug therapy; Translations: [OTH LOAN APPROVER CURRENT DRUG THERAPY] Onset: 02-05-2023 Episodic Other aftercare (1 source) Drug therapy finding; Translations: [Other thread reeler (current) drug therapy] 03-23-2024 Episodic Other aftercare (1 source) Taking high risk medication; Translations: [Other thread reeler (current) drug therapy] 03-23-2024 Episodic Other and [...] 06-27-2025 Hemoglobin (Bld) [Mass/Vol] 15.4 g/dL 14.0-18.0 [facility] Basic Metab w/rfx MGon Anion gap [Moles/Vol] 8 mmol/L Low 9-17 [facility] Comment on above: Performed By: #### B MPX, CDP ####[facility] [address] [place], [place] [id number] Lab Director: Rafa Prieto MD Calcium [Mass/Vol] 7.9 mg/dL Low 8.6-10.4 [facility] Comment on above: Performed By: #### B MPX, CDP ####[facility] [address] [place], [place] [id number] lab Director: Rafa Prieto MD Chloride [Moles/Vol] 97 mmol/L Low 98-107 [facility] Comment on above: Performed By: #### B MPX, CDP ####[facility] [address] [place] [address] Lab Director: Rafa Prieto MD CO2 [Moles/Vol] 25 mmol/L Normal 20-31 [facility] Comment on above: Performed By: #### B MPX, CDP ####[facility] [address] [place] [address] Lab Director: Rafa Prieto MD Creatinine [Mass/Vol] 0.6 mg/dL Low 0.7-1.2 [facility] Comment on above: Performed By: #### B MPX, CDP ####[address] [place] [address] Lab Director: Rafa Prieto MD GFR/1.73 sq M.predicted among non-blacks MDRD (S/P/Bld) [Vol rate/Area] mL/min/{1.73_m2} Normal >60 [facility] Comment on above: Result Comment: These [...] secretion. Performed By: #### B MPX, CDP ####[facility] [address] [place] [address] Lab Director: Rafa Prieto MD Glucose [Mass/Vol] 122 mg/dL High 70-99 [facility] Comment on above: Performed By: #### B MPX, CDP ####[facility] [address] [place] [address] Lab Director: Rafa Prieto MD Potassium [Moles/Vol] 3.9 mmol/L Normal 3.7-5.3 [facility] Comment on above: Performed By: #### B MPX, CDP ####[facility] [address] [place], [place] [address])[phone] Director: Rafa Prieto MD Sodium [Moles/Vol] 130 mmol/L Low 135-144 [facility] Comment on above: Performed By: #### B MPX, CDP ####[facility] [address] [place], [place] [address])[phone] Director: Rafa Prieto MD Urea nitrogen [Mass/Vol] 10 mg/dL Normal 6-20 [facility] Comment on above: Performed By: #### B MPX, CDP ####[facility] [address] [place] [address])[phone] Director: Rafa Prieto MD CBC with Diffon 01-06-2024 Abs. Basophil 0.04 k/uL Normal 0.00-0.20 [facility] Comment on above: Performed By: #### H EPXA, PTT #### [facility] [employer] [address] [place] [address] Coach Operator: Rafa Prieto MD Abs.Imm.Granulocyte 0.03 k/uL Normal 0.00-0.30 [facility] Comment on above: Performed By: #### H EPXA, PTT #### [facility] [employer] [address] [place] [address] Coach Operator: Rafa Prieto MD Abs.Neutrophil (Seg) 5.00 k/uL Normal 1.50-8.10 [facility] Comment on above: Performed By: #### H EPXA, PTT #### [facility] [email or web address] [facility] [place] [address] Coach Operator: Rafa Prieto MD Basophils/100 WBC (Bld) 1 % Normal 0-2 [facility] Comment on above: Performed By: #### H EPXA, PTT #### [facility] [employer] [address] [place] [address] Coach Operator: Rafa Prieto MD Eosinophils (Bld) [#/Vol] 0.38 10*3/uL Normal 0.00-0.44 [facility] Comment on above: Performed By: #### H EPXA, PTT #### [facility] [email or web address] [address] [place] [address] Coach Operator: Rafa Prieto MD Eosinophils/100 WBC (Bld) 5 % High 1-4 [facility] Comment on above: Performed By: #### H EPXA, PTT #### [facility] [email or web address] [address] [place] [address] Coach Operator: Rafa Prieto MD Erythrocyte distribution width (RBC) [Ratio] 16.5 % High 11.8-14.4 [facility] Comment on above: Performed By: #### H EPXA, PTT #### [facility] [employer] [address] [place] [address] Coach Operator: Rafa Prieto MD Hematocrit (Bld) [Volume fraction] 37.0 % Low 40.7-50.3 [facility] Comment on above: Performed By: #### H EPXA, PTT #### [facility] [email or web address] [address] [place] [address] Coach Operator: Rafa Prieto MD Hemoglobin (Bld) [Mass/Vol] 10.7 g/dL Low 13.0-17.0 [facility] Comment on above: Performed By: #### H EPXA, PTT #### [facility] [email or web address] [address] [place] [address] Coach Operator: Rafa Prieto MD Immature granulocytes/100 WBC (Bld) 0 % Normal 0 [facility] Comment on above: Performed By: #### H EPXA, PTT #### [address] [address] Coach Operator: Rafa Prieto MD Lymphocytes (Bld) [#/Vol] 1.55 10*3/uL Normal 1.10-3.70 [facility] Comment on above: Performed By: #### H EPXA, PTT #### [address] [address] Coach Operator: Rafa Prieto MD Lymphocytes/100 WBC (Bld) 19 % Low 24-43 [facility] Comment on above: Performed By: #### H EPXA, PTT #### [place] [address] Coach Operator: Rafa Prieto MD MCH (RBC) [Entitic mass] 24.0 pg Low 25.2-33.5 [facility] Comment on above: Performed By: #### H EPXA, PTT #### [place] [address] Coach Operator: Rafa Prieto MD MCHC (RBC) [Mass/Vol] 28.9 g/dL Normal 28.4-34.8 [facility] Comment on above: Performed By: #### H EPXA, PTT #### [place] [address] Coach Operator: Rafa Prieto MD MCV (RBC) [Entitic vol] 83.0 fL Normal 82.6-102.9 [facility] Comment on above: Performed By: #### H EPXA, PTT #### [place] [address] Coach Operator: Rafa Prieto MD Monocytes (Bld) [#/Vol] 0.99 10*3/uL Normal 0.10-1.20 [facility] Comment on above: Performed By: #### H EPXA, PTT #### [address] [place] [address] Coach Operator: Rafa Pireto MD Monocytes/100 WBC (Bld) 12 % Normal 3-12 [facility] Comment on above: Performed By: #### H EPXA, PTT #### [address] [address] Coach Operator: Rafa Prieto MD Neutrophil (Seg) 63 % Normal 36-65 [facility] Comment on above: Performed By: #### H EPXA, PTT #### [facility] [email or web address] [address] [place] [address] Coach Operator: Rafa Prieto MD NRBC Automated 0.0 per 100 WBC Normal 0.0 [facility] Comment on above: Performed By: #### H EPXA, PTT #### [address] [address] Coach Operator: Rafa Prieto MD Platelet mean volume (Bld) [Entitic vol] 10.8 fL Normal 8.1-13.5 [facility] Comment on above: Performed By: #### H EPXA, PTT #### [address] [address] Coach Operator: Rafa Prieto MD Platelets (Bld) [#/Vol] 204 10*3/uL Normal 138-453 [facility] Comment on above: Performed By: #### H EPXA, PTT #### [address] [address] Coach Operator: Rafa Prieto MD RBC (Bld) [#/Vol] 4.46 10*6/uL Normal 4.21-5.77 [facility] Comment on above: Performed By: #### H EPXA, PTT #### [address] [address] Coach Operator: Rafa Prieto MD RBC morphology finding Nom (Bld) ANISOCYTOSIS PRESENT Normal [facility] Comment on above: Performed By: #### H EPXA, PTT #### [facility] [email or web address] [facility] [place] [address] Coach Operator: Rafa Prieto MD WBC (Bld) [#/Vol] 8.0 10*3/uL Normal 3.5-11.3 [facility] Comment on above: Performed By: #### H EPXA, PTT #### [facility] [email or web address] [address] [place] [address] Coach Operator: Rafa Prieto MD Cult,Urineon 01-06-2024 Cult,Urine Specimen Description .CLEAN CATCH URINE Culture NO GROWTH Report Status FINAL 01/06/2024 Normal [facility] Comment on above: Performed By: #### U RC #### [address] [address] Coach Operator: Rafa Prieto MD Glucose,Whole Bloodon 2023 Glucose [Mass/Vol] 174 mg/dL High 75-110 [facility] Glucose [Mass/Vol] 192 mg/dL High 75-110 [facility] Glucose [Mass/Vol] 119 mg/dL High 75-110 [facility] Heparin Anti-Xaon 01-06-2024 Heparin Anti-Xa 0.41 IU/L Normal [facility] Comment on above: Performed By: #### H EPXA ####[facility] [address] [place] [address] Lab Director: Rafa Prieto MD Basic Metab w/rfx MGon 01-05 Anion gap [Moles/Vol] 11 mmol/L Normal 9-17 [facility] Comment on above: Performed By: #### U RC #### [facility] [email or web address] [address] [place] [address] Coach Operator: Rafa Prieto MD Calcium [Mass/Vol] 7.9 mg/dL Low 8.6-10.4 [facility] Comment on above: Performed By: #### U RC #### [address] [address] Coach Operator: Rafa Prieto MD Chloride [Moles/Vol] 99 mmol/L Normal 98-107 [facility] Comment on above: Performed By: #### U RC #### [address] [address] Coach Operator: Rafa Prieto MD CO2 [Moles/Vol] 24 mmol/L Normal 20-31 [facility] Comment on above: Performed By: #### U RC #### [address] [address] Coach Operator: Rafa Prieto MD Creatinine [Mass/Vol] 0.6 mg/dL Low 0.7-1.2 [facility] Comment on above: Performed By: #### U RC #### [address] [address] Coach Operator: Rafa Prieto MD GFR/1.73 sq M.predicted among non-blacks MDRD (S/P/Bld) [Vol rate/Area] mL/min/{1.73_m2} Normal >60 [facility] Comment on above: Result Comment: These [...] secretion. Performed By: #### U RC #### [address] [address] Coach Operator: Rafa Prieto MD Glucose [Mass/Vol] 97 mg/dL Normal 70-99 [facility] Comment on above: Performed By: #### U RC #### [address] [address] Coach Operator: Rafa Prieto MD Potassium [Moles/Vol] 4.3 mmol/L Normal 3.7-5.3 [facility] Comment on above: Performed By: #### U RC #### [address] [address] Coach Operator: Rafa Prieto MD Sodium [Moles/Vol] 134 mmol/L Low 135-144 [facility] Comment on above: Performed By: #### U RC #### [address] [address] Coach Operator: Rafa Prieto MD Urea nitrogen [Mass/Vol] 10 mg/dL Normal 6-20 [facility] Comment on above: Performed By: #### U RC #### [address] [address] Coach Operator: Rafa Prieto MD CBC with Diffon 01-05-2024 Abs. Basophil 0.00 k/uL Normal 0.0-0.2 [facility] Comment on above: Performed By: #### U RC #### [address] [address] Coach Operator: Rafa Prieto MD Abs.Imm.Granulocyte 0.00 k/uL Normal 0.00-0.30 [facility] Comment on above: Performed By: #### U RC #### [address] [address] Coach Operator: Rafa Prieto MD Abs.Neutrophil (Seg) 4.99 k/uL Normal 1.8-7.7 [facility] Comment on above: Performed By: #### U RC #### [address] [address] Coach Operator: Rafa Prieto MD Basophils/100 WBC (Bld) 0 % Normal 0-2 [facility] Comment on above: Performed By: #### U RC #### [address] [address] Coach Operator: Rafa Prieto MD Eosinophils (Bld) [#/Vol] 0.39 10*3/uL Normal 0.0-0.4 [facility] Comment on above: Performed By: #### U RC #### [address] [address] Coach Operator: Rafa Prieto MD Eosinophils/100 WBC (Bld) 5 % High 1-4 [facility] Comment on above: Performed By: #### U RC #### [address] [address] Coach Operator: Rafa Prieto MD Immature granulocytes/100 WBC (Bld) 0 % Normal 0 [facility] Comment on above: Performed By: #### U RC #### [address] [address] Coach Operator: Rafa Prieto MD Lymphocytes (Bld) [#/Vol] 1.48 10*3/uL Normal 1.0-4.8 [facility] Comment on above: Performed By: #### U RC #### [address] [address] Coach Operator: Rafa Prieto MD Lymphocytes/100 WBC (Bld) 19 % Low 24-44 [facility] Comment on above: Performed By: #### U RC #### [address] [address] Coach Operator: Rafa Prieto MD Monocytes (Bld) [#/Vol] 0.94 10*3/uL High 0.1-0.8 [facility] Comment on above: Performed By: #### U RC #### [address] [address] Coach Operator: Rafa Prieto MD Monocytes/100 WBC (Bld) 12 % High 1-7 [facility] Comment on above: Performed By: #### U RC #### [address] [address] Coach Operator: Rafa Prieto MD Morphology Rancho (Bld) [Interp] ANISOCYTOSIS PRESENT Normal [facility] Comment on above: Performed By: #### U RC #### [address] [address] Coach Operator: Rafa Prieto MD Neutrophil (Seg) 64 % Normal 36-66 [facility] Comment on above: Performed By: #### U RC #### [address] [address] Coach Operator: Rafa Prieto MD Erythrocyte distribution width (RBC) [Ratio] 16.6 % High 11.8-14.4 [facility] Comment on above: Performed By: #### U RC #### [address] [address] Coach Operator: Rafa Prieto MD Hematocrit (Bld) [Volume fraction] 38.6 % Low 40.7-50.3 [facility] Comment on above: Performed By: #### U RC #### [address] [address] Coach Operator: Rafa Prieto MD Hemoglobin (Bld) [Mass/Vol] 10.9 g/dL Low 13.0-17.0 [facility] Comment on above: Performed By: #### U RC #### [address] [address] Coach Operator: Rafa Prieto MD MCH (RBC) [Entitic mass] 24.0 pg Low 25.2-33.5 [facility] Comment on above: Performed By: #### U RC #### [address] [address] Coach Operator: Rafa Prieto MD MCHC (RBC) [Mass/Vol] 28.2 g/dL Low 28.4-34.8 [facility] Comment on above: Result Comment: TEST CONFIRMED Performed By: #### U RC #### [address] [address] Coach Operator: Rafa Prieto MD MCV (RBC) [Entitic vol] 85.0 fL Normal 82.6-102.9 [facility] Comment on above: Performed By: #### U RC #### [address] [address] Coach Operator: Rafa Prieto MD NRBC Automated 0.0 per 100 WBC Normal 0.0 [facility] Comment on above: Performed By: #### U RC #### [address] [address] Coach Operator: Rafa Prieto MD Platelet mean volume (Bld) [Entitic vol] 11.9 fL Normal 8.1-13.5 [facility] Comment on above: Performed By: #### U RC #### [address] [address] Coach Operator: Rafa Prieto MD Platelets (Bld) [#/Vol] 192 10*3/uL Normal 138-453 [facility] Comment on above: Performed By: #### U RC #### [address] [address] Coach Operator: Rafa Prieto MD RBC (Bld) [#/Vol] 4.54 10*6/uL Normal 4.21-5.77 [facility] Comment on above: Performed By: #### U RC #### [address] [place] [address] Coach Operator: Rafa Prieto MD WBC (Bld) [#/Vol] 7.8 10*3/uL Normal 3.5-11.3 [facility] Comment on above: Performed By: #### U RC #### [facility] [address] [place] [address] Coach Operator: Rafa Prieto MD Glucose,Whole Bloodon 2023 Glucose [Mass/Vol] 147 mg/dL High 75-110 [facility] Glucose [Mass/Vol] 178 mg/dL High 75-110 [facility] Glucose [Mass/Vol] 158 mg/dL High 75-110 [facility] Glucose [Mass/Vol] 106 mg/dL Normal -110 [facility] Heparin Anti-Xaon 01-05-2024 Heparin Anti-Xa 0.41 IU/L Normal [facility] Comment on above: Performed By: #### U RC #### [facility] [email or web address] [address] [place] [address] Coach Operator: Rafa Prieto MD Basic Metab w/rfx MGon 01-046 Anion gap [Moles/Vol] 8 mmol/L Low 9-17 [facility] Comment on above: Performed By: #### H EPXA, PTT #### [facility] [address] [place] [address] Coach Operator: Rafa Prieto MD Calcium [Mass/Vol] 7.7 mg/dL Low 8.6-10.4 [facility] Comment on above: Performed By: #### H EPXA, PTT #### [employer] [address] [place] [address] Coach Operator: Rafa Prieto MD Chloride [Moles/Vol] 98 mmol/L Normal 98-107 [facility] Comment on above: Performed By: #### H EPXA, PTT #### [employer] [facility] [place] [address] Coach Operator: Rafa Prieto MD CO2 [Moles/Vol] 26 mmol/L Normal 20-31 [facility] Comment on above: Performed By: #### H EPXA, PTT #### [employer] [facility] [address] [place] [address] Coach Operator: Rafa Prieto MD Creatinine [Mass/Vol] 0.6 mg/dL Low 0.7-1.2 [facility] Comment on above: Performed By: #### H EPXA, PTT #### [employer] [address] [place] [address] Coach Operator: Rafa Prieto MD GFR/1.73 sq M.predicted among non-blacks MDRD (S/P/Bld) [Vol rate/Area] mL/min/{1.73_m2} Normal >60 [facility] Comment on above: Result Comment: These [...] Performed By: #### H EPXA, PTT #### [employer] [address] [place] [address] Coach Operator: Rafa Prieto MD Glucose [Mass/Vol] 94 mg/dL Normal 70-99 [facility] Comment on above: Performed By: #### H EPXA, PTT #### [employer] [address] [place] [address] Coach Operator: Rafa Prieto MD Potassium [Moles/Vol] 3.9 mmol/L Normal 3.7-5.3 [facility] Comment on above: Performed By: #### H EPXA, PTT #### [employer] [address] [place] [address] Coach Operator: Rafa Prieto MD Sodium [Moles/Vol] 132 mmol/L Low 135-144 [facility] Comment on above: Performed By: #### H EPXA, PTT #### [facility] [email or web address] [address] [place] [address] Coach Operator: Rafa Prieto MD Urea nitrogen [Mass/Vol] 12 mg/dL Normal 6-20 [facility] Comment on above: Performed By: #### H EPXA, PTT #### [facility] [employer] [address] [place] [address] Coach Operator: Rafa Prieto MD CBC with Diffon 01-04-2024 Abs. Basophil 0.04 k/uL Normal 0.00-0.20 [facility] Comment on above: Performed By: #### H EPXA, PTT #### [facility] [employer] [address] [place] [address] Coach Operator: Rafa Prieto MD Abs.Imm.Granulocyte 0.04 k/uL Normal 0.00-0.30 [facility] Comment on above: Performed By: #### H EPXA, PTT #### [facility] [employer] [address] [place] [address] Coach Operator: Rafa Prieto MD Abs.Neutrophil (Seg) 5.71 k/uL Normal 1.50-8.10 [facility] Comment on above: Performed By: #### H EPXA, PTT #### [facility] [employer] [address] [place] [address] Coach Operator: Rafa Prieto MD Basophils/100 WBC (Bld) 0 % Normal 0-2 [facility] Comment on above: Performed By: #### H EPXA, PTT #### [facility] [employer] [address] [place] [address] Coach Operator: Rafa Prieto MD Eosinophils (Bld) [#/Vol] 0.30 10*3/uL Normal 0.00-0.44 [facility] Comment on above: Performed By: #### H EPXA, PTT #### [address] [address] Coach Operator: Rafa Prieto MD Eosinophils/100 WBC (Bld) 3 % Normal 1-4 [facility] Comment on above: Performed By: #### H EPXA, PTT #### [facility] [email or web address] [address] [place] [address] Coach Operator: Rafa Prieto MD Erythrocyte distribution width (RBC) [Ratio] 16.1 % High 11.8-14.4 [facility] Comment on above: Performed By: #### H EPXA, PTT #### [address] [address] Coach Operator: Rafa Prieto MD Hematocrit (Bld) [Volume fraction] 36.0 % Low 40.7-50.3 [facility] Comment on above: Performed By: #### H EPXA, PTT #### [address] [address] Coach Operator: Rafa Prieto MD Hemoglobin (Bld) [Mass/Vol] 10.5 g/dL Low 13.0-17.0 [facility] Comment on above: Performed By: #### H EPXA, PTT #### [address] [address] Coach Operator: Rafa Prieto MD Immature granulocytes/100 WBC (Bld) 0 % Normal 0 [facility] Comment on above: Performed By: #### H EPXA, PTT #### [facility] [email or web address] [address] [place] [address] Coach Operator: Rafa Prieto MD Lymphocytes (Bld) [#/Vol] 1.76 10*3/uL Normal 1.10-3.70 [facility] Comment on above: Performed By: #### H EPXA, PTT #### [address] [address] Coach Operator: Rafa Prieto MD Lymphocytes/100 WBC (Bld) 20 % Low 24-43 [facility] Comment on above: Performed By: #### H EPXA, PTT #### [address] [address] Coach Operator: Rafa Prieto MD MCH (RBC) [Entitic mass] 24.1 pg Low 25.2-33.5 [facility] Comment on above: Performed By: #### H EPXA, PTT #### [address] [address] Coach Operator: Rafa Prieto MD MCHC (RBC) [Mass/Vol] 29.2 g/dL Normal 28.4-34.8 [facility] Comment on above: Performed By: #### H EPXA, PTT #### [address] [address] Coach Operator: Rafa Prieto MD MCV (RBC) [Entitic vol] 82.8 fL Normal 82.6-102.9 [facility] Comment on above: Performed By: #### H EPXA, PTT #### [address] [address] Coach Operator: Rafa Prieto MD Monocytes (Bld) [#/Vol] 1.12 10*3/uL Normal 0.10-1.20 [facility] Comment on above: Performed By: #### H EPXA, PTT #### [address] [address] Coach Operator: Rafa Prieto MD Monocytes/100 WBC (Bld) 13 % High 3-12 [facility] Comment on above: Performed By: #### H EPXA, PTT #### [facility] [employer] [address] [place] [address] Coach Operator: Rafa Prieto MD Neutrophil (Seg) 64 % Normal 36-65 [facility] Comment on above: Performed By: #### H EPXA, PTT #### [facility] [employer] [address] [place] [address] Coach Operator: Rafa Prieto MD NRBC Automated 0.0 per 100 WBC Normal 0.0 [facility] Comment on above: Performed By: #### H EPXA, PTT #### [facility] [employer] [address] [place] [address] Coach Operator: Rafa Prieto MD Platelet mean volume (Bld) [Entitic vol] 11.1 fL Normal 8.1-13.5 [facility] Comment on above: Performed By: #### H EPXA, PTT #### [facility] [employer] [address] [place] [address] Coach Operator: Rafa Prieto MD Platelets (Bld) [#/Vol] 207 10*3/uL Normal 138-453 [facility] Comment on above: Performed By: #### H EPXA, PTT #### [address] [address] Coach Operator: Rafa Prieto MD RBC (Bld) [#/Vol] 4.35 10*6/uL Normal 4.21-5.77 [facility] Comment on above: Performed By: #### H EPXA, PTT #### [address] [address] Coach Operator: Rafa Prieto MD RBC morphology finding Nom (Bld) ANISOCYTOSIS PRESENT Normal [facility] Comment on above: Performed By: #### H EPXA, PTT #### [facility] [email or web address] [address] [place] [address] Coach Operator: Rafa Prieto MD WBC (Bld) [#/Vol] 9.0 10*3/uL Normal 3.5-11.3 [facility] Comment on above: Performed By: #### H EPXA, PTT #### [facility] [address] [place] [address] Coach Operator: Rafa Prieto MD Glucose,Whole Bloodon 2023 Glucose [Mass/Vol] 143 mg/dL High 75-110 [facility] Glucose [Mass/Vol] 150 mg/dL High 75-110 [facility] Hemoglobin A1Con 01-04-2024 Glucose [Mass/Vol] 140 mg/dL Normal [facility] Comment on above: Result Comment: The ADA and AACC recommend providing the estimated average glucose result to permit better patient understanding of their HBA1c result. Performed By: #### H EPXA, PTT #### [facility] [address] [place] [address] 53260 Coach Operator: Rafa Prieto MD HbA1c (Bld) [Mass fraction] 6.5 % High 4.0-6.0 [facility] Comment on above: Performed By: #### H EPXA, PTT #### [facility] [address] [place] [address] 55989 Coach Operator: Rafa Prieto MD Heparin Anti-Xaon 3 Heparin Anti-Xa 0.53 IU/L Normal [facility] Comment on above: Performed By: #### T ROPI #### [facility] [address] [place] [address] 96674 Coach Operator: Rafa Prieto MD Heparin Anti-Xa 0.65 IU/L Normal [facility] Comment on above: Performed By: #### U RC #### [facility] [address] [place] [address] 26414 Coach Operator: Rafa Prieto MD Heparin Anti-Xa 0.29 IU/L Normal [facility] Comment on above: Performed By: #### H EPXA, PTT #### [facility] [address] [place] [address] 27728 Coach Operator: Rafa Prieto MD Basic Metab w/rfx MGon 01-03 Anion gap [Moles/Vol] 8 mmol/L Low 9-17 [facility] Comment on above: Performed By: #### H EPXA, PTT #### [facility] [address] [place] [address] 46130 Coach Operator: Rafa Prieto MD Calcium [Mass/Vol] 7.8 mg/dL Low 8.6-10.4 [facility] Comment on above: Performed By: #### H EPXA, PTT #### [facility] [address] [place] [address] 48960 Coach Operator: Rafa Prieto MD Chloride [Moles/Vol] 94 mmol/L Low 98-107 [facility] Comment on above: Performed By: #### H EPXA, PTT #### [facility] [employer] [address] [place] [address] 47012 Coach Operator: Rafa Prieto MD CO2 [Moles/Vol] 25 mmol/L Normal 20-31 [facility] Comment on above: Performed By: #### H EPXA, PTT #### [facility] [address] [place] [address] 52524 Coach Operator: Rafa Prieto MD Creatinine [Mass/Vol] 0.6 mg/dL Low 0.7-1.2 [facility] Comment on above: Performed By: #### H EPXA, PTT #### [facility] [address] [place] [address] 70148 Coach Operator: Rafa Prieto MD GFR/1.73 sq M.predicted among non-blacks MDRD (S/P/Bld) [Vol rate/Area] mL/min/{1.73_m2} Normal >60 [facility] Comment on above: Result Comment: These [...] #### H EPXA, PTT #### [facility] [address] [place] [address] 17542 Coach Operator: Rafa Prieto MD Glucose [Mass/Vol] 108 mg/dL High 70-99 [facility] Comment on above: Performed By: #### H EPXA, PTT #### [facility] [address] [place] [address] 69098 Coach Operator: Rafa Prieto MD Potassium [Moles/Vol] 3.7 mmol/L Normal 3.7-5.3 [facility] Comment on above: Performed By: #### H EPXA, PTT #### [facility] [address] [place] [address] 93197 Coach Operator: Rafa Prieto MD Sodium [Moles/Vol] 127 mmol/L Low 135-144 [facility] Comment on above: Performed By: #### H EPXA, PTT #### [facility] [address] [place] [address] 68597 Coach Operator: Rafa Prieto MD Urea nitrogen [Mass/Vol] 15 mg/dL Normal 6-20 [facility] Comment on above: Performed By: #### H EPXA, PTT #### [facility] [address] [place] [address] 41344 Coach Operator: Rafa Prieto MD Brain Natri. Peptideon 01-03 Natriuretic peptide B (Bld) [Mass/Vol] 1253 pg/mL High <300 [facility] Comment on above: Result Comment: An age-independent cutoff point of 300 pg/ml has a 98% negative predictive value excluding acute heart failure. Performed By: #### H EPXA, BNP, TROPI ####[facility] [place] [address])[phone] Director: Rafa Prieto MD CBC with Diffon 01-03-2024 Abs. Basophil 0.05 k/uL Normal 0.00-0.20 [facility] Comment on above: Performed By: #### H EPXA, PTT #### [facility] [address] [place] [address] 47632 Coach Operator: Rafa Prieto MD Abs.Imm.Granulocyte <0.03 Normal 0.00-0.30 [facility] Comment on above: Performed By: #### H EPXA, PTT #### [facility] [address] [place] [address] 40478 Coach Operator: Rafa Prieto MD Abs.Neutrophil (Seg) 4.63 k/uL Normal 1.50-8.10 [facility] Comment on above: Performed By: #### H EPXA, PTT #### [facility] [address] [place] [address] 97307 Coach Operator: Rafa Prieto MD Basophils/100 WBC (Bld) 1 % Normal 0-2 [facility] Comment on above: Performed By: #### H EPXA, PTT #### [facility] [address] [place] [address] 66556 Coach Operator: Rafa Prieto MD Eosinophils (Bld) [#/Vol] 0.23 10*3/uL Normal 0.00-0.44 [facility] Comment on above: Performed By: #### H EPXA, PTT #### [facility] [address] [place] [address] 49320 Coach Operator: Rafa Prieto MD Eosinophils/100 WBC (Bld) 3 % Normal 1-4 [facility] Comment on above: Performed By: #### H EPXA, PTT #### [facility] [address] [place] [address] 82267 Coach Operator: Rafa Prieto MD Erythrocyte distribution width (RBC) [Ratio] 16.2 % High 11.8-14.4 [facility] Comment on above: Performed By: #### H EPXA, PTT #### [facility] [address] [place] [address] 90787 Coach Operator: Rafa Prieto MD Hematocrit (Bld) [Volume fraction] 37.7 % Low 40.7-50.3 [facility] Comment on above: Performed By: #### H EPXA, PTT #### [facility] [address] [place] [address] 18658 Coach Operator: Rafa Prieto MD Hemoglobin (Bld) [Mass/Vol] 10.9 g/dL Low 13.0-17.0 [facility] Comment on above: Performed By: #### H EPXA, PTT #### [facility] [employer] [address] [place] [address] 45342 Coach Operator: Rafa Prieto MD Immature granulocytes/100 WBC (Bld) 0 % Normal 0 [facility] Comment on above: Performed By: #### H EPXA, PTT #### [facility] [employer] [address] [place] [address] 94411 Coach Operator: Rafa Prieto MD Lymphocytes (Bld) [#/Vol] 1.96 10*3/uL Normal 1.10-3.70 [facility] Comment on above: Performed By: #### H EPXA, PTT #### [facility] [address] [place] [address] 05339 Coach Operator: Rafa Prieto MD Lymphocytes/100 WBC (Bld) 24 % Normal 24-43 [facility] Comment on above: Performed By: #### H EPXA, PTT #### [facility] [address] [place] [address] 90051 Coach Operator: Rafa Prieto MD MCH (RBC) [Entitic mass] 24.2 pg Low 25.2-33.5 [facility] Comment on above: Performed By: #### H EPXA, PTT #### [facility] [address] [place] [address] 72816 Coach Operator: Rafa Prieto MD MCHC (RBC) [Mass/Vol] 28.9 g/dL Normal 28.4-34.8 [facility] Comment on above: Performed By: #### H EPXA, PTT #### [facility] [employer] [address] [place] [address] 48809 Coach Operator: Rafa Prieto MD MCV (RBC) [Entitic vol] 83.6 fL Normal 82.6-102.9 [facility] Comment on above: Performed By: #### H EPXA, PTT #### [facility] [employer] [address] [place] [address] 51845 Coach Operator: Rafa Prieto MD Monocytes (Bld) [#/Vol] 1.23 10*3/uL High 0.10-1.20 [facility] Comment on above: Performed By: #### H EPXA, PTT #### [address] [address] Coach Operator: Rafa Prieto MD Monocytes/100 WBC (Bld) 15 % High 3-12 [facility] Comment on above: Performed By: #### H EPXA, PTT #### [facility] [employer] [address] [place] [address] 07897 Coach Operator: Rafa Prieto MD Neutrophil (Seg) 57 % Normal 36-65 [facility] Comment on above: Performed By: #### H EPXA, PTT #### [facility] [employer] [address] [place] [address] 93361 Coach Operator: Rafa Prieto MD NRBC Automated 0.0 per 100 WBC Normal 0.0 [facility] Comment on above: Performed By: #### H EPXA, PTT #### [address] 8[address] Coach Operator: Rafa Prieto MD Platelet mean volume (Bld) [Entitic vol] 10.8 fL Normal 8.1-13.5 [facility] Comment on above: Performed By: #### H EPXA, PTT #### [address] [address] Coach Operator: Rafa Prieto MD Platelets (Bld) [#/Vol] 194 10*3/uL Normal 138-453 [facility] Comment on above: Performed By: #### H EPXA, PTT #### [address] 9[address] Coach Operator: Rafa Prieto MD RBC (Bld) [#/Vol] 4.51 10*6/uL Normal 4.21-5.77 [facility] Comment on above: Performed By: #### H EPXA, PTT #### [address] [address] Coach Operator: Rafa Prieto MD RBC morphology finding Nom (Bld) ANISOCYTOSIS PRESENT Normal [facility] Comment on above: Performed By: #### H EPXA, PTT #### [address] [address] Coach Operator: Rafa Prieto MD WBC (Bld) [#/Vol] 8.1 10*3/uL Normal 3.5-11.3 [facility] Comment on above: Performed By: #### H EPXA, PTT #### [facility] [employer] [address] [place] [address] 06651 Coach Operator: Rafa Prieto MD Glucose,Whole Bloodon 2023 Glucose [Mass/Vol] 143 mg/dL High 75-110 [facility] Glucose [Mass/Vol] 107 mg/dL Normal 75-110 [facility] Heparin Anti-Xaon 01-03-2024 Heparin Anti-Xa 0.48 IU/L Normal [facility] Comment on above: Performed By: #### H EPXA, BNP, TROPI ####[facility] [address] [place] [address] 81391 Lab Director: Rafa Prieto MD Osmolalityon 01-03-2024 Osmolality [Osmolality] 280 mosm/kg Normal 275-295 [facility] Comment on above: Performed By: #### O SMO, REJEC ####[address] [address] Lab Director: Rafa Prieto MD Osmolality, Urineon 01-03-20 24 Osmolality - Urine 293 mOsm/kg Normal 80-1300 [facility] Comment on above: Performed By: #### U RC #### [address] [address] Coach Operator: Rafa Prieto MD Sodium, Random Uron 01-03-20 24 Na Conc. Urine <20 Normal [facility] Comment on above: Result Comment: No n ormal range established. Performed By: #### U RC #### [address] [address] Coach Operator: Rafa Prieto MD Specimen Rejectionon 024 Reason for rejection Unable to perform testing: Specimen quantity not sufficient. Normal [facility] Comment on above: Performed By: #### O SMO, REJEC ####[facility] [address] [place] [address] 88209 Lab Director: Rafa Prieot MD Source of sample .BLOOD Normal [facility] Comment on above: Performed By: #### O SMO, REJEC ####[facility] [address] [place] [address] 70773 Lab Director: Rafa Prieto MD Test ordered BNP TROPI Normal [facility] Comment on above: Performed By: #### O SMO, REJEC ####[facility] [address] [place] [address] Lab Director: Rafa Prieto MD Troponinon 01-03-2024 Troponin, High Sens 57 ng/L Critically high 0-22 [facility] Comment on above: Result Comment: High Sensitivity Troponin values cannot be compared with other Troponin methodologies. Performed By: #### U RC #### [facility] [address] [place] [address] Coach Operator: Rafa Prieto MD XR CHEST PORTABLEon [...] Samir Infante MD 01/03/24 Final result Normal [facility] Arterial Bld Gas,POCon 01-02 Rao Test Positive Normal [facility] HCO3 (Bld) [Moles/Vol] 30.0 mmol/L High 21.0-28.0 [facility] Oxygen saturation in Blood 93.2 % Low 94.0-98.0 [facility] Patient Temp. 37.7 Normal [facility] pCO2, Arterial 53.1 mm Hg High 35.0-48.0 [facility] pCO2, Temp Adjust 54.7 mm Hg Normal [facility] pH, Arterial 7.361 Normal 7.350-7.450 [facility] pH, Temp Adjust 7.350 Normal [facility] pO2, Arterial 71.8 mm Hg Low 83.0-108.0 [facility] pO2, Temp Adjust 75.2 mm Hg Normal [facility] Positive Base Excess (calc) 3.3 mmol/L High 0.0-3.0 [facility] Site Drawn Left Radial Artery Normal [facility] Basic Metab w/rfx MGon 01-02 Anion gap [Moles/Vol] 9 mmol/L Normal 9-17 [facility] Comment on above: Performed By: #### H EPXA, PTT #### [facility] [address] [place] [address] 39235 Coach Operator: Rafa Prieto MD Calcium [Mass/Vol] 8.0 mg/dL Low 8.6-10.4 [facility] Comment on above: Performed By: #### H EPXA, PTT #### [facility] [address] [place] [address] 49279 Coach Operator: Rafa Prieto MD Chloride [Moles/Vol] 100 mmol/L Normal 98-107 [facility] Comment on above: Performed By: #### H EPXA, PTT #### [facility] [address] [place] [address] 72546 Coach Operator: Rafa Prieto MD CO2 [Moles/Vol] 26 mmol/L Normal 20-31 [facility] Comment on above: Performed By: #### H EPXA, PTT #### [facility] [address] [place] [address] 08464 Coach Operator: Rafa Prieto MD Creatinine [Mass/Vol] 0.7 mg/dL Normal 0.7-1.2 [facility] Comment on above: Performed By: #### H EPXA, PTT #### [facility] [address] [place] [address] 33509 Coach Operator: Rafa Prieto MD GFR/1.73 sq M.predicted among non-blacks MDRD (S/P/Bld) [Vol rate/Area] mL/min/{1.73_m2} Normal >60 [facility] Comment on above: Result Comment: These [...] Performed By: #### H EPXA, PTT #### [facility] [address] [place] [address] 60323 Coach Operator: Rafa Prieto MD Glucose [Mass/Vol] 110 mg/dL High 70-99 [facility] Comment on above: Performed By: #### H EPXA, PTT #### [facility] [address] [place] [address] 29219 Coach Operator: Rafa Prieto MD Potassium [Moles/Vol] 3.9 mmol/L Normal 3.7-5.3 [facility] Comment on above: Performed By: #### H EPXA, PTT #### [facility] [address] [place] [address] 16431 Coach Operator: Rafa Prieto MD Sodium [Moles/Vol] 135 mmol/L Normal 135-144 [facility] Comment on above: Performed By: #### H EPXA, PTT #### [facility] [address] [place] [address] 76312 Coach Operator: Rafa Prieto MD Urea nitrogen [Mass/Vol] 15 mg/dL Normal 6-20 [facility] Comment on above: Performed By: #### H EPXA, PTT #### [facility] [address] [place] [address] 14869 Coach Operator: Rafa Prieto MD CBC with Diffon 01-02-2024 Abs. Basophil 0.00 k/uL Normal 0.0-0.2 [facility] Comment on above: Performed By: #### H EPXA, PTT #### [facility] [employer] [address] [place] [address] 92062 Coach Operator: Rafa Prieto MD Abs.Imm.Granulocyte 0.00 k/uL Normal 0.00-0.30 [facility] Comment on above: Performed By: #### H EPXA, PTT #### [facility] [employer] [address] [place] [address] 82390 Coach Operator: Rafa Prieto MD Abs.Neutrophil (Seg) 4.48 k/uL Normal 1.8-7.7 [facility] Comment on above: Performed By: #### H EPXA, PTT #### [facility] [employer] [address] [place] [address] 26143 Coach Operator: Rafa Prieto MD Basophils/100 WBC (Bld) 0 % Normal 0-2 [facility] Comment on above: Performed By: #### H EPXA, PTT #### [address] [address] Coach Operator: Rafa Prieto MD Eosinophils (Bld) [#/Vol] 0.08 10*3/uL Normal 0.0-0.4 [facility] Comment on above: Performed By: #### H EPXA, PTT #### [facility] [employer] [address] [place] [address] Coach Operator: Rafa Prieto MD Eosinophils/100 WBC (Bld) 1 % Normal 1-4 [facility] Comment on above: Performed By: #### H EPXA, PTT #### [facility] [employer] [address] [place] [address] 83969 Coach Operator: Rafa Prieto MD Immature granulocytes/100 WBC (Bld) 0 % Normal 0 [facility] Comment on above: Performed By: #### H EPXA, PTT #### [facility] [employer] [address] [place] [address] 14573 Coach Operator: Rafa Prieto MD Lymphocytes (Bld) [#/Vol] 1.76 10*3/uL Normal 1.0-4.8 [facility] Comment on above: Performed By: #### H EPXA, PTT #### [facility] [address] [place] [address] 17106 Coach Operator: Rafa Prieto MD Lymphocytes/100 WBC (Bld) 22 % Low 24-44 [facility] Comment on above: Performed By: #### H EPXA, PTT #### [facility] [address] [place] [address] 18431 Coach Operator: Rafa Prieto MD Monocytes (Bld) [#/Vol] 1.68 10*3/uL High 0.1-0.8 [facility] Comment on above: Performed By: #### H EPXA, PTT #### [facility] [address] [place] [address] 49526 Coach Operator: Rafa Prieto MD Monocytes/100 WBC (Bld) 21 % High 1-7 [facility] Comment on above: Performed By: #### H EPXA, PTT #### [facility] [address] [place] [address] 80426 Coach Operator: Rafa Prieto MD Morphology Rancho (Bld) [Interp] ANISOCYTOSIS PRESENT Normal [facility] Comment on above: Performed By: #### H EPXA, PTT #### [facility] [address] [place] [address] 32687 Coach Operator: Rafa Prieto MD Neutrophil (Seg) 56 % Normal 36-66 [facility] Comment on above: Performed By: #### H EPXA, PTT #### [facility] [address] [place] [address] 93327 Coach Operator: Rafa Prieto MD Erythrocyte distribution width (RBC) [Ratio] 15.9 % High 11.8-14.4 [facility] Comment on above: Performed By: #### H EPXA, PTT #### [facility] [email or web address] [address] [place] [address] 83442 Coach Operator: Rafa Prieto MD Hematocrit (Bld) [Volume fraction] 40.7 % Normal 40.7-50.3 [facility] Comment on above: Performed By: #### H EPXA, PTT #### [address] [address] Coach Operator: Rafa Prieto MD Hemoglobin (Bld) [Mass/Vol] 11.6 g/dL Low 13.0-17.0 [facility] Comment on above: Performed By: #### H EPXA, PTT #### [address] [address] Coach Operator: Rafa Prieto MD MCH (RBC) [Entitic mass] 24.0 pg Low 25.2-33.5 [facility] Comment on above: Performed By: #### H EPXA, PTT #### [address] [address] Coach Operator: Rafa Prieto MD MCHC (RBC) [Mass/Vol] 28.5 g/dL Normal 28.4-34.8 [facility] Comment on above: Performed By: #### H EPXA, PTT #### [address] [address] Coach Operator: Rafa Prieto MD MCV (RBC) [Entitic vol] 84.1 fL Normal 82.6-102.9 [facility] Comment on above: Performed By: #### H EPXA, PTT #### [address] [address] Coach Operator: Rafa Prieto MD NRBC Automated 0.0 per 100 WBC Normal 0.0 [facility] Comment on above: Performed By: #### H EPXA, PTT #### [facility] [address] [place] [address] 39103 Coach Operator: Rafa Prieto MD Platelet mean volume (Bld) [Entitic vol] 11.1 fL Normal 8.1-13.5 [facility] Comment on above: Performed By: #### H EPXA, PTT #### [facility] [address] [place] [address] 36441 Coach Operator: Rafa Prieto MD Platelets (Bld) [#/Vol] 212 10*3/uL Normal 138-453 [facility] Comment on above: Performed By: #### H EPXA, PTT #### [facility] [address] [place] [address] 88109 Coach Operator: Rafa Prieto MD RBC (Bld) [#/Vol] 4.84 10*6/uL Normal 4.21-5.77 [facility] Comment on above: Performed By: #### H EPXA, PTT #### [facility] [address] [place] [address] 22644 Coach Operator: Rafa Prieto MD WBC (Bld) [#/Vol] 8.0 10*3/uL Normal 3.5-11.3 [facility] Comment on above: Performed By: #### H EPXA, PTT #### [facility] [employer] [address] [place] [address] 76149 Coach Operator: Rafa Prieto MD Glucose (POC)on 01-02-2024 Glucose [Mass/Vol] 116 mg/dL High 74-100 [facility] Glucose,Whole Bloodon 2023 Glucose [Mass/Vol] 165 mg/dL High 75-110 [facility] Glucose [Mass/Vol] 209 mg/dL High 75-110 [facility] Glucose [Mass/Vol] 115 mg/dL High 75-110 [facility] Glucose [Mass/Vol] 78 mg/dL Normal 75-110 [facility] Heparin Anti-Xaon 01-02-2024 Heparin Anti-Xa 0.55 IU/L Normal [facility] Comment on above: Performed By: #### H EPXA, PTT #### [facility] [email or web address] [address] [place] [address] 42812 Coach Operator: Rafa Prieto MD Heparin Anti-Xa 0.63 IU/L Normal [facility] Comment on above: Performed By: #### H EPXA ####[facility] [address] [place] [address] 97[address] Lab Director: Rafa Prieto MD APTTon 01-01-2024 aPTT Coag (Bld) [Time] 123.5 s Critically high 23.0-36.5 [facility] Comment on above: Result Comment: IV Heparin Therapy Range: 66.0-92.0 sec Performed By: #### H EPXA, PTT #### [facility] [email or web address] [address] [place] [address] 01006 Coach Operator: Rafa Prieto MD aPTT Coag (Bld) [Time] 82.0 s High 23.0-36.5 [facility] Comment on above: Result Comment: IV Heparin Therapy Range: 66.0-92.0 sec Performed By: #### H EPXA, PTT #### [facility] [email or web address] [address] [place] [address] 19456 Coach Operator: Rafa Prieto MD aPTT Coag (Bld) [Time] 122.3 s Critically high 23.0-36.5 [facility] Comment on above: Result Comment: IV Heparin Therapy Range: 66.0-92.0 sec Performed By: #### T ROPI #### [address] [address] Coach Operator: Rafa Prieto MD Basic Metab w/rfx MGon 01-01 Creatinine [Mass/Vol] 0.8 mg/dL Normal 0.7-1.2 [facility] Comment on above: Result Comment: ICTE MANSOOR SPECIMEN Performed By: #### B MPX, CDP, TROPI, MG ####[facility] [address] [place] [address]757 Lab Director: Rafa Prieto MD GFR/1.73 sq M.predicted among non-blacks MDRD (S/P/Bld) [Vol rate/Area] mL/min/{1.73_m2} Normal >60 [facility] Comment on above: Result Comment: These [...] By: #### B MPX, CDP, TROPI, MG ####[facility] [address] [place] [address] Lab Director: Rafa Prieto MD Potassium [Moles/Vol] 3.5 mmol/L Low 3.7-5.3 [facility] Comment on above: Performed By: #### B MPX, CDP, TROPI, MG ####[facility] [place] [address] 61513 Lab Director: Rafa Prieto MD Anion gap [Moles/Vol] 13 mmol/L Normal 9-17 [facility] Comment on above: Performed By: #### B MPX, CDP, TROPI, MG ####[facility] [address] [place] [address] Lab Director: Rafa Prieto MD Calcium [Mass/Vol] 8.3 mg/dL Low 8.6-10.4 [facility] Comment on above: Performed By: #### B MPX, CDP, TROPI, MG ####[facility] [address] [place] [address] Lab Director: Rafa Prieto MD Chloride [Moles/Vol] 99 mmol/L Normal 98-107 [facility] Comment on above: Performed By: #### B MPX, CDP, TROPI, MG ####[facility] [address] [place] [address] Lab Director: Rafa Prieto MD CO2 [Moles/Vol] 25 mmol/L Normal 20-31 [facility] Comment on above: Performed By: #### B MPX, CDP, TROPI, MG ####[facility] [address] [place], [place] [phone] Director: Rafa Prieto MD Glucose [Mass/Vol] 89 mg/dL Normal 70-99 [facility] Comment on above: Performed By: #### B MPX, CDP, TROPI, MG ####[facility] [address] [place], [place] [phone] Director: Rafa Prieto MD Sodium [Moles/Vol] 137 mmol/L Normal 135-144 [facility] Comment on above: Performed By: #### B MPX, CDP, TROPI, MG ####[facility] [address] [place] [address] Lab Director: Rafa Prieto MD Urea nitrogen [Mass/Vol] 20 mg/dL Normal 6-20 [facility] Comment on above: Performed By: #### B MPX, CDP, TROPI, MG ####[facility] [address] [place] [address] Lab Director: Rafa Prieto MD Basic Metabolic Profon 01-01 Creatinine [Mass/Vol] 0.7 mg/dL Normal 0.7-1.2 [facility] Comment on above: Result Comment: ICTE MANSOOR SPECIMEN Performed By: #### T ROPI #### [facility] [address] [place] [address] Coach Operator: Rafa Prieto MD GFR/1.73 sq M.predicted among non-blacks MDRD (S/P/Bld) [Vol rate/Area] mL/min/{1.73_m2} Normal >60 [facility] Comment on above: Result Comment: These [...] secretion. Performed By: #### T ROPI #### [address] [address] Coach Operator: Rafa Prieto MD Anion gap [Moles/Vol] 12 mmol/L Normal 9-17 [facility] Comment on above: Performed By: #### T ROPI #### [address] [address] Coach Operator: Rafa Prieto MD Calcium [Mass/Vol] 8.3 mg/dL Low 8.6-10.4 [facility] Comment on above: Performed By: #### T ROPI #### [address] [address] Coach Operator: Rafa Prieto MD Chloride [Moles/Vol] 98 mmol/L Normal 98-107 [facility] Comment on above: Performed By: #### T ROPI #### [address] [address] Coach Operator: Rafa Prieto MD CO2 [Moles/Vol] 25 mmol/L Normal 20-31 [facility] Comment on above: Performed By: #### T ROPI #### [address] [address] [address] Coach Operator: Rafa Prieto MD Glucose [Mass/Vol] 125 mg/dL High 70-99 [facility] Comment on above: Performed By: #### T ROPI #### [facility] [employer] [facility] [place] [address] Coach Operator: Rafa Prieto MD Potassium [Moles/Vol] 3.6 mmol/L Low 3.7-5.3 [facility] Comment on above: Performed By: #### T ROPI #### [facility] [employer] [address] [place] [address] Coach Operator: Rafa Prieto MD Sodium [Moles/Vol] 135 mmol/L Normal 135-144 [facility] Comment on above: Performed By: #### T ROPI #### [address] [address] Coach Operator: Rafa Prieto MD Urea nitrogen [Mass/Vol] 22 mg/dL High 6-20 [facility] Comment on above: Performed By: #### T ROPI #### [address] [address] Coach Operator: Rafa Prieto MD Brain Natri. Peptideon 01-01 Natriuretic peptide B (Bld) [Mass/Vol] 2437 pg/mL High <300 [facility] Comment on above: Result Comment: An age-independent cutoff point of 300 pg/ml has a 98% negative predictive value excluding acute heart failure. Performed By: #### T ROPI #### [facility] [employer] [address] [place] [address] Coach Operator: Rafa Prieto MD CBC with Diffon 01-01-2024 Abs. Basophil 0.00 k/uL Normal 0.00-0.20 [facility] Comment on above: Performed By: #### B MPX, CDP, TROPI, MG ####[facility] [address] [place] [address] Lab Director: Rafa Prieto MD Abs.Imm.Granulocyte 0.00 k/uL Normal 0.00-0.30 [facility] Comment on above: Performed By: #### B MPX, CDP, TROPI, MG ####[facility] [address] [place], [place] [id number])[phone] Director: Rafa Prieto MD Abs.Neutrophil (Seg) 4.00 k/uL Normal 1.50-8.10 [facility] Comment on above: Performed By: #### B MPX, CDP, TROPI, MG ####[facility] [address] [place], [place] [address])[phone] Director: Rafa Prieto MD Basophils/100 WBC (Bld) 0 % Normal 0-2 [facility] Comment on above: Performed By: #### B MPX, CDP, TROPI, MG ####[facility] [address] [place], [place] [address])[phone] Director: Rafa Prieto MD Eosinophils (Bld) [#/Vol] 0.00 10*3/uL Normal 0.00-0.44 [facility] Comment on above: Performed By: #### B MPX, CDP, TROPI, MG ####[facility] [address]xft[address]75 [place], [place] [address])[phone] Director: Rafa Prieto MD Eosinophils/100 WBC (Bld) 0 % Low 1-4 [facility] Comment on above: Performed By: #### B MPX, CDP, TROPI, MG ####[facility] [address] [place] [address] Lab Director: Rafa Prieto MD Immature granulocytes/100 WBC (Bld) 0 % Normal 0 [facility] Comment on above: Performed By: #### B MPX, CDP, TROPI, MG ####[facility] [address]ulmb[address] [place], [place] [address])[phone] Director: Rafa Prieto MD Lymphocytes (Bld) [#/Vol] 1.70 10*3/uL Normal 1.10-3.70 [facility] Comment on above: Performed By: #### B MPX, CDP, TROPI, MG ####[facility] [address] [place] [address] Lab Director: Rafa Prieto MD Lymphocytes/100 WBC (Bld) 23 % Low 24-43 [facility] Comment on above: Performed By: #### B MPX, CDP, TROPI, MG ####[facility] [address]ib[address] [place] [address] Lab Director: Rafa Prieto MD Monocytes (Bld) [#/Vol] 1.70 10*3/uL High 0.10-1.20 [facility] Comment on above: Performed By: #### B MPX, CDP, TROPI, MG ####[facility] [address]ml5625 [place] [address] Lab Director: Rafa Prieto MD Monocytes/100 WBC (Bld) 23 % High 3-12 [facility] Comment on above: Performed By: #### B MPX, CDP, TROPI, MG ####[facility] R[address]fb[address]w70[address] [place] [address] Lab Director: Rafa Prieto MD Morphology Rancho (Bld) [Interp] ANISOCYTOSIS PRESENT Normal [facility] Comment on above: Result Comment: MICR OCYTOSIS PRESENT Performed By: #### B MPX, CDP, TROPI, MG ####[facility] [address]dk[address] [place] [address] Lab Director: Rafa Prieto MD Neutrophil (Seg) 54 % Normal 36-65 [facility] Comment on above: Performed By: #### B MPX, CDP, TROPI, MG ####[facility] [address]es[address] [place] [address] lab Director: Rafa Prieto MD Erythrocyte distribution width (RBC) [Ratio] 15.8 % High 11.8-14.4 [facility] Comment on above: Performed By: #### B MPX, CDP, TROPI, MG ####[facility] P[address]ec[address]td[address]qvaz3572 [place] [address] lab Director: Rafa Prieto MD Hematocrit (Bld) [Volume fraction] 40.9 % Normal 40.7-50.3 [facility] Comment on above: Performed By: #### B MPX, CDP, TROPI, MG ####[facility] [address] [place] [address] lab Director: Rafa Prieto MD Hemoglobin (Bld) [Mass/Vol] 12.3 g/dL Low 13.0-17.0 [facility] Comment on above: Performed By: #### B MPX, CDP, TROPI, MG ####[facility] [address]64 [place] [address] lab Director: Rafa Prieto MD MCH (RBC) [Entitic mass] 24.2 pg Low 25.2-33.5 [facility] Comment on above: Performed By: #### B MPX, CDP, TROPI, MG ####[facility] [address]fxfxfpb9176 [place] [address] lab Director: Rafa Prieto MD MCHC (RBC) [Mass/Vol] 30.1 g/dL Normal 28.4-34.8 [facility] Comment on above: Performed By: #### B MPX, CDP, TROPI, MG ####[facility] [address]um6147 [place] [address] Lab Director: Rafa Prieto MD MCV (RBC) [Entitic vol] 80.5 fL Low 82.6-102.9 [facility] Comment on above: Performed By: #### B MPX, CDP, TROPI, MG ####[facility] X[address]idvix[address]brf[address] [place], [place] [id number])[phone] Director: Rafa Prieto MD NRBC Automated 0.0 per 100 WBC Normal 0.0 [facility] Comment on above: Performed By: #### B MPX, CDP, TROPI, MG ####[facility] [address] [place], [place] [id number])[phone] Director: Rafa Prieto MD Platelet mean volume (Bld) [Entitic vol] 11.0 fL Normal 8.1-13.5 [facility] Comment on above: Performed By: #### B MPX, CDP, TROPI, MG ####[facility] [address] [place], [place] [id number])[phone] Director: Rafa Prieto MD Platelets (Bld) [#/Vol] 246 10*3/uL Normal 138-453 [facility] Comment on above: Performed By: #### B MPX, CDP, TROPI, MG ####[facility] [address]rt[address] [place], [place] [id number])[phone] Director: Rafa Prieto MD RBC (Bld) [#/Vol] 5.08 10*6/uL Normal 4.21-5.77 [facility] Comment on above: Performed By: #### B MPX, CDP, TROPI, MG ####[facility] [address] [place] [address] [id number])[phone] Director: Rafa Prieto MD WBC (Bld) [#/Vol] 7.4 10*3/uL Normal 3.5-11.3 [facility] Comment on above: Performed By: #### B MPX, CDP, TROPI, MG ####[facility] [address] [place], [place] [id number])[phone] Director: Rafa Prieto MD Abs. Basophil 0.00 k/uL Normal 0.0-0.2 [facility] Comment on above: Performed By: #### T ROPI #### [address] [address] Coach Operator: Rafa Prieto MD Abs.Imm.Granulocyte 0.00 k/uL Normal 0.00-0.30 [facility] Comment on above: Performed By: #### T ROPI #### [address] [address] Coach Operator: Rafa Prieto MD Abs.Neutrophil (Seg) 5.76 k/uL Normal 1.8-7.7 [facility] Comment on above: Performed By: #### T ROPI #### [address] [address] Coach Operator: Rafa Prieto MD Basophils/100 WBC (Bld) 0 % Normal 0-2 [facility] Comment on above: Performed By: #### T ROPI #### [address] [address] Coach Operator: Rafa Prieto MD Eosinophils (Bld) [#/Vol] 0.00 10*3/uL Normal 0.0-0.4 [facility] Comment on above: Performed By: #### T ROPI #### [address] [address] Coach Operator: Rafa Prieto MD Eosinophils/100 WBC (Bld) 0 % Low 1-4 [facility] Comment on above: Performed By: #### T ROPI #### [address] [address] Coach Operator: Rafa Prieto MD Immature granulocytes/100 WBC (Bld) 0 % Normal 0 [facility] Comment on above: Performed By: #### T ROPI #### [address] [address] Coach Operator: Rafa Prieto MD Lymphocytes (Bld) [#/Vol] 1.28 10*3/uL Normal 1.0-4.8 [facility] Comment on above: Performed By: #### T ROPI #### [address] [address] Coach Operator: Rafa Prieto MD Lymphocytes/100 WBC (Bld) 16 % Low 24-44 [facility] Comment on above: Performed By: #### T ROPI #### [address] [address] Coach Operator: Rafa Prieto MD Monocytes (Bld) [#/Vol] 0.96 10*3/uL High 0.1-0.8 [facility] Comment on above: Performed By: #### T ROPI #### [address] [address] Coach Operator: Rafa Prieto MD Monocytes/100 WBC (Bld) 12 % High 1-7 [facility] Comment on above: Performed By: #### T ROPI #### [address] [address] Coach Operator: Rafa Prieto MD Morphology Rancho (Bld) [Interp] ANISOCYTOSIS PRESENT Normal [facility] Comment on above: Result Comment: MICR OCYTOSIS PRESENT Performed By: #### T ROPI #### [address] [address] Coach Operator: Rafa Prieto MD Neutrophil (Seg) 72 % High 36-66 [facility] Comment on above: Performed By: #### T ROPI #### [address] [address] Coach Operator: Rafa Prieto MD Nucleated RBC'S 1 per 100 WBC High 0 [facility] Comment on above: Performed By: #### T ROPI #### [address] [place] [address] Coach Operator: Rafa Prieto MD Erythrocyte distribution width (RBC) [Ratio] 15.9 % High 11.8-14.4 [facility] Comment on above: Performed By: #### T ROPI #### [address] [address] Coach Operator: Rafa Prieto MD Hematocrit (Bld) [Volume fraction] 41.5 % Normal 40.7-50.3 [facility] Comment on above: Performed By: #### T ROPI #### [address] [address] Coach Operator: Rafa Prieto MD Hemoglobin (Bld) [Mass/Vol] 12.7 g/dL Low 13.0-17.0 [facility] Comment on above: Performed By: #### T ROPI #### [address] [address] Coach Operator: Rafa Prieto MD MCH (RBC) [Entitic mass] 24.3 pg Low 25.2-33.5 [facility] Comment on above: Performed By: #### T ROPI #### [address] [address] Coach Operator: Rafa Prieto MD MCHC (RBC) [Mass/Vol] 30.6 g/dL Normal 28.4-34.8 [facility] Comment on above: Performed By: #### T ROPI #### [address] [address] Coach Operator: Rafa Prieto MD MCV (RBC) [Entitic vol] 79.5 fL Low 82.6-102.9 [facility] Comment on above: Performed By: #### T ROPI #### [address] [address] Coach Operator: Rafa Prieto MD NRBC Automated 0.3 per 100 WBC High 0.0 [facility] Comment on above: Performed By: #### T ROPI #### [facility] [employer] [address] [place] [address] Coach Operator: Rafa Prieto MD Platelet mean volume (Bld) [Entitic vol] 10.9 fL Normal 8.1-13.5 [facility] Comment on above: Performed By: #### T ROPI #### [facility] [employer] [address] [place] [address] Coach Operator: Rafa Prieto MD Platelets (Bld) [#/Vol] 265 10*3/uL Normal 138-453 [facility] Comment on above: Performed By: #### T ROPI #### [address] [address] Coach Operator: Rafa Prieto MD RBC (Bld) [#/Vol] 5.22 10*6/uL Normal 4.21-5.77 [facility] Comment on above: Performed By: #### T ROPI #### [facility] [employer] [address] [place] [address] Coach Operator: Rafa Prieto MD WBC (Bld) [#/Vol] 8.0 10*3/uL Normal 3.5-11.3 [facility] Comment on above: Performed By: #### T ROPI #### [facility] [employer] [address] [place] [address] Coach Operator: Rafa Prieto MD Glucose,Whole Bloodon 2023 Glucose [Mass/Vol] 72 mg/dL Low 75-110 [facility] Glucose [Mass/Vol] 60 mg/dL Low 75-110 [facility] Glucose [Mass/Vol] 44 mg/dL Low 75-110 [facility] Comment on above: Result Comment: Alesia mensah Noted Glucose [Mass/Vol] 91 mg/dL Normal 75-110 [facility] Glucose [Mass/Vol] 66 mg/dL Low 75-110 [facility] Glucose [Mass/Vol] 42 mg/dL Low 75-110 [facility] Comment on above: Result Comment: Alesia mensah Noted Glucose [Mass/Vol] 124 mg/dL High 75-110 [facility] Heparin Anti-Xaon 01-01-2024 Heparin Anti-Xa 0.97 IU/L Normal [facility] Comment on above: Performed By: #### H EPXA #### [facility] [address] [place] [address] Coach Operator: Rafa Prieto MD Heparin Anti-Xa 0.40 IU/L Normal [facility] Comment on above: Performed By: #### H EPXA, PTT #### [facility] [employer] [address] [place] [address] Coach Operator: Rafa Prieto MD Heparin Anti-Xa 0.32 IU/L Normal [facility] Comment on above: Performed By: #### H EPXA, PTT #### [facility] [employer] [address] [place] [address] Coach Operator: Rafa Prieto MD Heparin Anti-Xa 0.29 IU/L Normal [facility] Comment on above: Performed By: #### T ROPI #### [facility] [employer] [address] [place] [address] Coach Operator: Rafa Prieto MD MRSA, DNA, Nasalon MRSA, DNA, Nasal Negative Normal NEG [facility] Comment on above: Result Comment: NEGA TIVE: MRSA DNA not detected by nucleic acid amplification. Results should be used as an adjunct to nosocomial control efforts to identify patients needing enhanced precautions. The test is not intended to identify patients with staphylococcal infections. Results should not be used to guide or monitor treatment for MRSA infections. Performed By: #### M RSANO ####[address] [phone] Director: Rafa Prieto MD Specimen Description .NASAL SWAB Normal [facility] Comment on above: Performed By: #### M RSANO ####[facility] [address] [place], [place] [id number])[phone] Director: Rafa Prieto MD Magnesiumon 01-01-2024 Magnesium [Mass/Vol] 1.7 mg/dL Normal 1.6-2.6 [facility] Comment on above: Performed By: #### B MPX, CDP, TROPI, MG ####[facility] [address] [place], [place] [id number])[phone] Director: Rafa Prieto MD Troponinon 01-01-2024 Troponin, High Sens 103 ng/L Critically high 0-22 [facility] Comment on above: Result Comment: High Sensitivity Troponin values cannot be compared with other Troponin methodologies. Previous Alert Value Reported Performed By: #### B MPX, CDP, TROPI, MG ####[facility] [address] [place], [place] [phone] Director: Rafa Prieto MD Troponin, High Sens 107 ng/L Critically high 0-22 [facility] Comment on above: Result Comment: High Sensitivity Troponin values cannot be compared with other Troponin methodologies. Previous Alert Value Reported Performed By: #### T ROPI ####[facility] [address]nnp[address] [place], [place] [id number])[phone] Director: Rafa Prieto MD Troponin, High Sens 107 ng/L Critically high 0-22 [facility] Comment on above: Result Comment: High Sensitivity Troponin values cannot be compared with other Troponin methodologies. Previous Alert Value Reported Performed By: #### T ROPI #### [facility] [address] [place] [address] Coach Operator: Rafa Prieto MD Troponin, High Sens 104 ng/L Critically high 022 [facility] Comment on above: Result Comment: High Sensitivity Troponin values cannot be compared with other Troponin methodologies. Performed By: #### T ROPI #### [facility] [address] [place] [address] Coach Operator: Rafa Prieto MD Type + Screenon 01-01-2024 Type + Screen Sample Expiration 01/04/2024,2359 Arm Band Number [id number] ABO/Rh(D) A POSITIVE Antibody Screen NEGATIVE Normal [facility] Comment on above: Performed By: #### T YS ####[facility] [place] [address] Lab Director: Rafa Prieto MD Urinalysis, Routineon 2023 Bilirubin, SemiQt,Ur Negative Normal NEG [facility] Comment on above: Performed By: #### H EPXA, PTT #### [facility] [address] [place] [address] Coach Operator: Rafa Prieto MD Blood, Urine LARGE Abnormal NEG [facility] Comment on above: Performed By: #### H EPXA, PTT #### [facility] [address] [place] [address] Coach Operator: Rafa Prieto MD Clarity (U) Clear Normal CLEAR [facility] Comment on above: Performed By: #### H EPXA, PTT #### [facility] [address] [place] [address] Coach Operator: Rafa Prieto MD Color (U) Dark Yellow Abnormal YEL [facility] Comment on above: Performed By: #### H EPXA, PTT #### [facility] [address] [place] [address] Coach Operator: Rafa Prieto MD Glucose Ql (U) Negative Normal NEG [facility] Comment on above: Performed By: #### H EPXA, PTT #### [facility] [address] [place] [address] Coach Operator: Rafa Prieto MD Ketones Ql (U) Negative Normal NEG [facility] Comment on above: Performed By: #### H EPXA, PTT #### [facility] [employer] [address] [place] [address] Coach Operator: Rafa Prieto MD Leukocyte esterase Test strip Ql (U) MODERATE Abnormal NEG [facility] Comment on above: Performed By: #### H EPXA, PTT #### [facility] [employer] [address] [place] [address] Coach Operator: Rafa Prieto MD Nitrite,Ur Negative Normal NEG [facility] Comment on above: Performed By: #### H EPXA, PTT #### [facility] [employer] [address] [place] [address] Coach Operator: Rafa Prieto MD PH,Ur 5.5 Normal 5.0-8.0 [facility] Comment on above: Performed By: #### H EPXA, PTT #### [facility] [employer] [address] [place] [address] Coach Operator: Rafa Prieto MD Protein Ql (U) TRACE Abnormal NEG [facility] Comment on above: Performed By: #### H EPXA, PTT #### [facility] [employer] [address] [place] [address] Coach Operator: Rafa Pireto MD Spec. Pioneer,Ur 1.024 Normal 1.005-1.030 [facility] Comment on above: Performed By: #### H EPXA, PTT #### [facility] [employer] [address] [place] [address] Coach Operator: Rafa Prieto MD Urobilinogen,Ur ELEVATED Normal 0.0-1.0 [facility] Comment on above: Performed By: #### H EPXA, PTT #### [facility] [employer] [address] [place] [address] Coach Operator: Rafa Prieto MD Urinalysis,Microon 4 Epithelial cells LM Ql (Urine sed) 5 TO 10 Normal 0-5 [facility] Comment on above: Performed By: #### H EPXA, PTT #### [facility] [address] [place] [address] Coach Operator: Rafa Prieto MD Urine RBC's TOO NUMEROUS TO COUNT Normal 0-2 [facility] Comment on above: Performed By: #### H EPXA, PTT #### [facility] [address] [place] [address] Coach Operator: Rafa Prieto MD Urine WBC's 10 TO 20 Normal 0-5 [facility] Comment on above: Performed By: #### H EPXA, PTT #### [address] [phone] Coach Operator: Rafa Prieto MD DENNY Antinuclear Antibodieson 08-09-2023 Antinuclear Abs, IFA Negative Normal . [facility] Comment on above: Result Comment: Nega tive <1:80 Borderline 1:80 Positive >1:80 ICAP nomenclature: AC-0 For more information about Hep-2 cell patterns use ANApatterns.org, the official website for the International Consensus on Antinuclear Antibody (DENNY) Patterns (ICAP). Performed at: - [facility] [address] [id number] Coach Operator: Lester Nunez PhD, Phone: [phone] Performed By: #### A NA, [id number] #### [facility] , #### T4F, CRP, CK, CMP, ESR, CBC, TSH3 #### [facility] [address] [place] [address] [place] C-Reactive Proteinon 023 C-Reactive Protein 0.5 mg/dL Normal 0.0-0.5 [facility] Comment on above: Performed By: #### A NA, [id number] #### [facility] , #### T4F, CRP, CK, CMP, ESR, CBC, TSH3 #### [address] Complete Blood Count Auto Di ffon 08-09-2023 Basophils (Bld) [#/Vol] 0.0 10*3/uL Normal 0.0-0.2 [facility] Comment on above: Performed By: #### A NA, [id number] #### [facility] , #### T4F, CRP, CK, CMP, ESR, CBC, TSH3 #### [address] Basophils/100 WBC (Bld) 0.6 % Normal . [facility] Comment on above: Performed By: #### A NA, [id number] #### [facility] , #### T4F, CRP, CK, CMP, ESR, CBC, TSH3 #### [address] Eosinophils (Bld) [#/Vol] 0.1 10*3/uL Normal 0.0-0.45 [facility] Comment on above: Performed By: #### A NA, [id number] #### [facility] , #### T4F, CRP, CK, CMP, ESR, CBC, TSH3 #### [address] Eosinophils/100 WBC (Bld) 1.4 % Normal . [facility] Comment on above: Performed By: #### A NA, [id number] #### [facility] , #### T4F, CRP, CK, CMP, ESR, CBC, TSH3 #### [address] Erythrocyte distribution width (RBC) [Ratio] 13.1 % Normal 12.0-14.8 [facility] Comment on above: Performed By: #### A NA, [id number] #### [facility] , #### T4F, CRP, CK, CMP, ESR, CBC, TSH3 #### [address] Hematocrit (Bld) [Volume fraction] 43.8 % Normal 38.8-50.0 [facility] Comment on above: Performed By: #### A NA, [id number] #### [facility] , #### T4F, CRP, CK, CMP, ESR, CBC, TSH3 #### [address] Hemoglobin (Bld) [Mass/Vol] 14.4 g/dL Normal 13.0-17.0 [facility] Comment on above: Performed By: #### A NA, [id number] #### [facility] , #### T4F, CRP, CK, CMP, ESR, CBC, TSH3 #### [address] Lymphocytes (Bld) [#/Vol] 1.7 10*3/uL Normal 1.00-4.8 [facility] Comment on above: Performed By: #### A NA, [id number] #### [facility] , #### T4F, CRP, CK, CMP, ESR, CBC, TSH3 #### [address] Lymphocytes/100 WBC (Bld) 24.1 % Normal . [facility] Comment on above: Performed By: #### A NA, [id number] #### [facility] , #### T4F, CRP, CK, CMP, ESR, CBC, TSH3 #### [address] MCH (RBC) [Entitic mass] 27.6 pg Normal 27.5-35.2 [facility] Comment on above: Performed By: #### A NA, [id number] #### [facility] , #### T4F, CRP, CK, CMP, ESR, CBC, TSH3 #### [address] MCV (RBC) [Entitic vol] 84.1 fL Normal 83.5-101 [facility] Comment on above: Performed By: #### A NA, [id number] #### [facility] , #### T4F, CRP, CK, CMP, ESR, CBC, TSH3 #### [address] Mean Corpuscular HGB Conc 32.8 g/dL Normal 32.5-35.6 [facility] Comment on above: Performed By: #### A NA, [id number] #### [facility] , #### T4F, CRP, CK, CMP, ESR, CBC, TSH3 #### [address] Monocytes (Bld) [#/Vol] 0.4 10*3/uL Normal 0.0-0.8 [facility] Comment on above: Performed By: #### A NA, [id number] #### [facility] , #### T4F, CRP, CK, CMP, ESR, CBC, TSH3 #### [address] Monocytes/100 WBC (Bld) 5.9 % Normal . [facility] Comment on above: Performed By: #### A NA, [id number] #### [facility] , #### T4F, CRP, CK, CMP, ESR, CBC, TSH3 #### [address] Neutrophils (Bld) [#/Vol] 4.9 10*3/uL Normal 1.8-7.7 [facility] Comment on above: Performed By: #### A NA, [id number] #### [facility] , #### T4F, CRP, CK, CMP, ESR, CBC, TSH3 #### [address] [place] [address] [place] Neutrophils/100 WBC (Bld) 68.0 % Normal . [facility] Comment on above: Performed By: #### A NA, [id number] #### [facility] , #### T4F, CRP, CK, CMP, ESR, CBC, TSH3 #### [address] NRBC% 0.2 /100{WBC} Normal 0-0.5 [facility] Comment on above: Performed By: #### A NA, [id number] #### [facility] , #### T4F, CRP, CK, CMP, ESR, CBC, TSH3 #### [address] Platelet mean volume (Bld) [Entitic vol] 10.9 fL High 6.6-10.1 [facility] Comment on above: Performed By: #### A NA, [id number] #### [facility] , #### T4F, CRP, CK, CMP, ESR, CBC, TSH3 #### [place] [address] [place] Platelets (Bld) [#/Vol] 216 10*3/uL Normal 150-450 [facility] Comment on above: Performed By: #### A NA, [id number] #### [facility] , #### T4F, CRP, CK, CMP, ESR, CBC, TSH3 #### [address] RBC (Bld) [#/Vol] 5.20 10*6/uL Normal 3.90-5.60 [facility] Comment on above: Performed By: #### A NA, [id number] #### [facility] , #### T4F, CRP, CK, CMP, ESR, CBC, TSH3 #### [place] [address] [place] WBC (Bld) [#/Vol] 7.1 10*3/uL Normal 4.1-10.5 [facility] Comment on above: Performed By: #### A NA, [id number] #### [facility] , #### T4F, CRP, CK, CMP, ESR, CBC, TSH3 #### [facility] [address] [place] [address] Comprehensive Metabolic Pane chery 08-09-2023 Albumin [Mass/Vol] 4.6 g/dL Normal 3.5-5.7 [facility] Comment on above: Performed By: #### A NA, [id number] #### [facility] , #### T4F, CRP, CK, CMP, ESR, CBC, TSH3 #### [address] Albumin/Globulin [Mass ratio] 1.3 {ratio} Normal [facility] Comment on above: Performed By: #### A NA, [id number] #### [facility] , #### T4F, CRP, CK, CMP, ESR, CBC, TSH3 #### [facility] [address] [place] [address] ALP [Catalytic activity/Vol] 44 U/L Normal 34-104 [facility] Comment on above: Performed By: #### A NA, [id number] #### [facility] , #### T4F, CRP, CK, CMP, ESR, CBC, TSH3 #### [facility] [address] [place] [address] ALT [Catalytic activity/Vol] 50 U/L Normal 7-52 [facility] Comment on above: Performed By: #### A NA, [id number] #### [facility] , #### T4F, CRP, CK, CMP, ESR, CBC, TSH3 #### [address] Anion gap [Moles/Vol] 14.9 mmol/L Normal 6.0-15.0 [facility] Comment on above: Performed By: #### A NA, [id number] #### [facility] , #### T4F, CRP, CK, CMP, ESR, CBC, TSH3 #### [address] AST [Catalytic activity/Vol] 33 U/L Normal 13-39 [facility] Comment on above: Performed By: #### A NA, [id number] #### [facility] , #### T4F, CRP, CK, CMP, ESR, CBC, TSH3 #### [facility] [address] [place] [address] Bilirubin [Mass/Vol] 0.4 mg/dL Normal 0.3-1.0 [facility] Comment on above: Performed By: #### A NA, [id number] #### [facility] , #### T4F, CRP, CK, CMP, ESR, CBC, TSH3 #### [address] Calcium [Mass/Vol] 10.2 mg/dL Normal 8.6-10.3 [facility] Comment on above: Performed By: #### A NA, [id number] #### [facility] , #### T4F, CRP, CK, CMP, ESR, CBC, TSH3 #### [facility] [address] [place] [address] [place] Chloride [Moles/Vol] 97 mmol/L Low 98-107 [facility] Comment on above: Performed By: #### A NA, [id number] #### [facility] , #### T4F, CRP, CK, CMP, ESR, CBC, TSH3 #### [facility] [address] [place] [address] CO2 [Moles/Vol] 29.7 mmol/L Normal 21.0-31.0 [facility] Comment on above: Performed By: #### A NA, [id number] #### [facility] , #### T4F, CRP, CK, CMP, ESR, CBC, TSH3 #### [address] Creatinine [Mass/Vol] 0.80 mg/dL Normal 0.70-1.30 [facility] Comment on above: Performed By: #### A NA, [id number] #### [facility] , #### T4F, CRP, CK, CMP, ESR, CBC, TSH3 #### [address] GFR/1.73 sq M.predicted MDRD (S/P/Bld) [Vol rate/Area] mL/min/{1.73_m2} [facility] Comment on above: Performed By: #### A NA, [id number] #### [facility] , #### T4F, CRP, CK, CMP, ESR, CBC, TSH3 #### [address] Globulin (S) [Mass/Vol] 3.5 g/dL Normal [facility] Comment on above: Performed By: #### A NA, [id number] #### [facility] , #### T4F, CRP, CK, CMP, ESR, CBC, TSH3 #### [address] Glucose [Mass/Vol] 157 mg/dL High 70-100 [facility] Comment on above: Result Comment: [facility] Glucose Reference Range is dependent on time and content of last meal. Glucose of more than 200 mg/dL in a nonstressed, ambulatory subject supports the diagnosis of Diabetes Mellitus. ADA recommended reference range Performed By: #### A NA, [id number] #### [facility] , #### T4F, CRP, CK, CMP, ESR, CBC, TSH3 #### [address] Potassium [Moles/Vol] 4.6 mmol/L Normal 3.5-5.1 [facility] Comment on above: Performed By: #### A NA, [id number] #### [facility] , #### T4F, CRP, CK, CMP, ESR, CBC, TSH3 #### [facility] [address] [place] [address] Protein [Mass/Vol] 8.1 g/dL Normal 6.4-8.9 [facility] Comment on above: Performed By: #### A NA, [id number] #### [facility] , #### T4F, CRP, CK, CMP, ESR, CBC, TSH3 #### [address] Sodium [Moles/Vol] 137 mmol/L Normal 136-145 [facility] Comment on above: Performed By: #### A NA, [id number] #### [facility] , #### T4F, CRP, CK, CMP, ESR, CBC, TSH3 #### [address] Urea nitrogen [Mass/Vol] 10 mg/dL Normal 7-25 [facility] Comment on above: Performed By: #### A NA, [id number] #### [facility] , #### T4F, CRP, CK, CMP, ESR, CBC, TSH3 #### [facility] [address] [place] [address] Creatine Kinaseon 08-09-2023 CK [Catalytic activity/Vol] 95 U/L Normal 30-223 [facility] Comment on above: Result Comment: PERF ORMED BY: [place] [address] PATHOLOGIST [employer] JOSEPH SAUCEDA M.D. Performed By: #### A NA, [id number] #### [facility] , #### T4F, CRP, CK, CMP, ESR, CBC, TSH3 #### [address] [place] [address] [place] Erythrocyte Sedimentation Ra baldo 08-09-2023 ESR (Bld) [Velocity] 30 mm/h High 0-19 [facility] Comment on above: Result Comment: PERF ORMED BY: [place] [address] PATHOLOGIST [employer] JOSEPH SAUCEDA M.D. Performed By: #### A NA, [id number] #### [facility] , #### T4F, CRP, CK, CMP, ESR, CBC, TSH3 #### [address] Free T4 (Free Thyroxine)on 1 Free T4 [Mass/Vol] 0.87 ng/dL Normal 0.61-1.12 [facility] Comment on above: Performed By: #### A NA, [id number] #### [facility] , #### T4F, CRP, CK, CMP, ESR, CBC, TSH3 #### [address] HLA B27 Disease Associationo n 08-09-2023 HLA B27 Disease Association Positive Normal . [facility] Comment on above: Result Comment: HLA- B*27 Positive This patient is positive for HLA-B*27. This procedure rules out the B*27:06 and 27:09 alleles, which the literature suggests are not associated with spondyloarthropathies. B27 allele interpretation for all loci based on IMGT/HLA database version 3.44 This test was developed and its performance characteristics determined by [employer]. It has not been cleared or approved by the Food and Drug Administration. [facility] CLIA ID Number [id number] THis test was performed using Polymerase Chain Reaction (PCR) and Sequence Specific Oligonucleotide Probes (SSOP) technique. Sequence Based Typing (SBT) may be used as a supplemental method when necessary. If you have questions, please call HLA customer service at or email at [email or web address]. Performed at: [address] [id number] Coach Operator: Minerva Pearce PhD, Phone: [phone] PERFORMED BY: [place] [address] PATHOLOGIST [employer] JOSEPH SAUCEDA M.D. Performed By: #### A NA, [id number] #### [facility] , #### T4F, CRP, CK, CMP, ESR, CBC, TSH3 #### [address] Thyroid Stimulating Hormoneo n 08-09-2023 TSH Qn 2.42 m[IU]/L Normal 0.45-5.33 [facility] Comment on above: Result Comment: PERF ORMED BY: [place] [address] PATHOLOGIST [employer] JOSEPH SAUCEDA M.D. Performed By: #### A NA, [id number] #### [facility] , #### T4F, CRP, CK, CMP, ESR, CBC, TSH3 #### [address] XR thoracic spine 3V*on XR thoracic spine 3V* [facility] [place] [address] [place] [address] XRay Report Signed Patient: Vitaly Dobson MR#: [id number] : 1970 Acct:[id number] Age/Sex: 52 / M ADM Date: 08/09/23 Loc: ICXD Room: Type: [facility] Attending Dr: Edi Henriquez MD Copies to: Edi Henriquez MD Ordering Provider: Edi Henriquez MD Date of Service: 08/09/23 XR/XR lumbar spine 2-3V*: LOW BACK PAIN ([id number]) XR/XR thoracic spine 3V*: DISH VS ANKYLOSING SPONDYLITIS ([id number]) XR/XR si joints: LOW BACK PAIN CLINICAL [...] Vee Amanda M.D.08/09/2023 4:34 PM Dictation Location: [place] [address] Transcribed By: [facility] 08/09/23 1634 Dictated By: Vee Amanda MD 08/09/23 1608 Signed By: 08/09/23 1634 [facility] XR cervical spine 2-3Von XR cervical spine 2-3V [facility] [place] Other XR cervical spine 2-3V [address] [facility] [place] Other XR cervical spine 2-3[place] [address] [facility] Other XR cervical spine 2-3V XRay Report [facility] Other XR cervical spine 2-3V Signed [facility] Other XR cervical spine 2-3V Patient: VITALY DOBSON MR#: [id number] [facility] Other XR cervical spine 2-3V : 1970 Acct:[id number] [facility] Other XR cervical spine 2-3V Age/Sex: 52 / M ADM Date: 07/28/23 [facility] Other XR cervical spine 2-3V Loc: [facility] Other XR cervical spine 2-3V Attending Dr: Semaj Avery D.O. [facility] Other XR cervical spine 2-3V Ordering Physician: Semaj Avery D.O. [facility] Other XR cervical spine 2-3V Date of Service: 07/28/23 [facility] Other XR cervical spine 2-3V Accession Number(s): [id number] [facility] Other XR cervical spine 2-3V cc: Semaj Avery D.O. [facility] Other XR cervical spine 2-3V [address] [facility] Other XR cervical spine 2-3V [place] [address] [facility] Other XR cervical spine 2-3V [facility] Other XR cervical spine 2-3V Patient Name: [facility] Other XR cervical spine 2-3V VITALY DOBSON [facility] Other XR cervical spine 2-3V MRN: [facility]:[id number] date: 1970 Sex: M [facility] Other XR cervical spine 2-3V Assigned Patient Location: [facility] Other XR cervical spine 2-3V Current Patient Location: LAB [facility] Other XR cervical spine 2-3V Accession/Order Number: [id number] [facility] Other XR cervical spine 2-3V Exam Date: 07/28/2023 11:15 Report Date: 07/28/2023 12:14 [facility] Other XR cervical spine 2-3V At the request of: [facility] Other XR cervical spine 2-3V SEMAJ BALL [facility] Other XR cervical spine 2-3V EXAMINATION: XR cervical spine 2-3V, XR lumbar spine 2-3V, XR thoracic spine [facility] Other XR cervical spine 2-3V 2V [facility] Other XR cervical spine 2-3V HISTORY: Scoliosis M41.20, Cervical Spondylosis M47.812 [facility] Other XR cervical spine 2-3V COMPARISON: No relevant comparison available. [facility] Other XR cervical spine 2-3V FINDINGS: [facility] Other XR cervical spine 2-3V BONES: Cervical spine demonstrates marked left convex curvature and mild [facility] Other XR cervical spine 2-3V reversal of normal lordotic curvature. Suspect degenerative changes versus [facility] Other XR cervical spine 2-3V osseous bridging of the facet joints at most levels. No appreciable fracture [facility] Other XR cervical spine 2-3V or [facility] Other XR cervical spine 2-3V spondylolisthesis [facility] Other XR cervical spine 2-3V Thoracic spine demonstrates moderate left convex curvature and exaggerated [facility] Other XR cervical spine 2-3V kyphosis. No appreciable fracture or spondylolisthesis. [facility] Other XR cervical spine 2-3V Lumbar spine demonstrates mild curvature at the thoracolumbar junction. [facility] Other XR cervical spine 2-3V Straightening of the normal lordotic curvature, and multilevel marked [facility] Other XR cervical spine 2-3V degenerative facet arthropathy. Bone encroachment on the L4-5 and L5-S1 neural [facility] Other XR cervical spine 2-3V foramen. [facility] Other XR cervical spine 2-3V DISC SPACES: Calcification of the interspinous ligaments throughout. Cervical [facility] Other XR cervical spine 2-3V spine multilevel mild disc space narrowing. Thoracic spine multilevel mild [facility] Other XR cervical spine 2-3V disc [facility] Other XR cervical spine 2-3V space narrowing. Lumbar spine and multilevel mild-moderate disc space [facility] Other XR cervical spine 2-3V narrowing. [facility] Other XR cervical spine 2-3V PARASPINOUS: No paraspinous abnormality is seen. [facility] Other XR cervical spine 2-3V Negative [facility] Other XR cervical spine 2-3V XR/XR cervical spine 2-3V [facility] Other XR cervical spine 2-3V IMPRESSION: [facility] Other XR cervical spine 2-3V 1. Limited examination due to patient needing to be imaged in the standing [facility] Other XR cervical spine 2-3V position. [facility] Other XR cervical spine 2-3V 2. Multilevel scoliotic curvature of the cervical and thoracic spine. [facility] Other XR cervical spine 2-3V 3. Thoracic kyphosis. [place] Other XR cervical spine 2-3V 4. Findings favor diffuse ankylosing spondylitis throughout the cervical, [facility] Other XR cervical spine 2-3V thoracic, lumbar spine. [facility] Other XR cervical spine 2-3V 5. Multilevel mild degenerative disc disease. [facility] Other XR cervical spine 2-3V 6. Marked degenerative facet arthropathy of lumbar spine. [facility] Other XR cervical spine 2-3V Electronically authenticated by: DAMI GOMEZ Date: 07/28/2023 12:14 [facility] Other XR cervical spine 2-3V Dictated By: Dami Gomez M.D. [facility] Other XR cervical spine 2-3V Signed By: 07/28/23 [facility] Other XR cervical spine 2-3V DD/ [facility] Other XR cervical spine 2-3V TD/TT: [employer]: [facility] Other XR lumbar spine 2-3Von 07-28 XR lumbar spine 2-3V Accession Number(s): [id number] [facility] Other XR lumbar spine 2-3V Accession/Order Number: [id number] [facility] Other XR lumbar spine 2-3V XR/XR lumbar spine 2-3V [facility] Other XR thoracic spine 2Von 07-28 XR thoracic spine 2V Accession Number(s): [id number] [facility] Other XR thoracic spine 2V Accession/Order Number: [id number] [facility] Other XR thoracic spine 2V XR/XR thoracic spine 2V [facility] Other LIPID PROFILE SEND OUTon Cholesterol [Mass/Vol] 259 mg/dL Critically high 100-199 [facility] Comment on above: Performed By: #### B MPLC, LIPIDLC #### [facility] [address] [place] [address] [address] David Brown Cholesterol in HDL [Mass/Vol] 16 mg/dL Critically low >39 [facility] Comment on above: Performed By: #### B MPLC, LIPIDLC #### [facility] [address] [place] [address] [address] David Brown Comment: Normal [facility] Comment on above: Performed By: #### B MPLC, LIPIDLC #### [facility] [address] [place] [address] Dr. David Brown LDL Chol. Calc. ([facility]) Comment Abnormal 0-99 [facility] Comment on above: Result Comment: Trig lyceride result indicated is too high for an accurate LDL cholesterol estimation. Performed By: #### B MPLC, LIPIDLC #### [facility] [address] [place] [address] Dr. David Brown Triglyceride [Mass/Vol] 2070 mg/dL Invalid Interpretation Code 0-149 [facility] Comment on above: Result Comment: Resu lts confirmed on dilution. Performed By: #### B MPLC, LIPIDLC #### [facility] [address] [place] [address] Dr. David Brown VLDL Cholesterol, Calc Comment Abnormal 5-40 [facility] Comment on above: Result Comment: The calculation for the VLDL cholesterol is not valid when triglyceride level is >800 mg/dL. Performed By: #### B MPLC, LIPIDLC #### [facility] [address] [place] [address] Dr. David Brown PROF CHEM 8 (BAS METB) SEND OUTon 02-04-2023 Calcium [Mass/Vol] 10.0 mg/dL Normal 8.7-10.2 [facility] Comment on above: Performed By: #### B MPLC, LIPIDLC #### [facility] [address] [place] [address] [address] David Brown Chloride [Moles/Vol] 91 mmol/L Critically low 96-106 [facility] Comment on above: Performed By: #### B MPLC, LIPIDLC #### [facility] [address] [place] [address] [address] David Brown CO2 [Moles/Vol] 24 mmol/L Normal 20-29 [facility] Comment on above: Performed By: #### B MPLC, LIPIDLC #### [facility] [address] [place] [address] [address] David Brown Creatinine [Mass/Vol] 1.00 mg/dL Normal 0.76-1.27 [facility] Comment on above: Performed By: #### B MPLC, LIPIDLC #### [facility] [address] [place] [address] Dr. David Brown GFR/1.73 sq M.predicted among non-blacks MDRD (S/P/Bld) [Vol rate/Area] 90 mL/min/{1.73_m2} Normal >59 [facility] Comment on above: Performed By: #### B MPLC, LIPIDLC #### [facility] [address] [place] [address] Dr. David Brown Glucose [Mass/Vol] 205 mg/dL Critically high 70-99 [facility] Comment on above: Performed By: #### B MPLC, LIPIDLC #### [facility] [address] [place] [address] Dr. David Brown Potassium [Moles/Vol] 4.7 mmol/L Normal 3.5-5.2 [facility] Comment on above: Performed By: #### B MPLC, LIPIDLC #### [facility] [address] [place] [address] Dr. David Brown Sodium [Moles/Vol] 132 mmol/L Critically low 134-144 [facility] Comment on above: Performed By: #### B MPLC, LIPIDLC #### [facility] [address] [place] [address] Dr. David Brown Urea nitrogen [Mass/Vol] 18 mg/dL Normal 6-24 [facility] Comment on above: Performed By: #### B MPLC, LIPIDLC #### [facility] [address] [place] [address] Dr. David Brown Urea nitrogen/Creatinine [Mass ratio] 18 mg/mg Normal 9-20 [facility] Comment on above: Performed By: #### B MPLC, LIPIDLC #### [facility] [address] [place] [address] Dr. David Brown CBC AUTO DIFFon 02-03-2023 BASO # 0.1 103/ul Normal 0.0-0.1 [facility] Comment on above: Performed By: #### C BC #### [facility] [address] [place] [address] Dr. David Brown Basophils/100 WBC (Bld) 0.6 % Normal 0.2-2.0 [facility] Comment on above: Performed By: #### C BC #### [facility] [address] [place] [address] Dr. David Brown EO # 0.2 103/ul Normal 0.0-0.7 [facility] Comment on above: Performed By: #### C BC #### [facility] [address] [place] [address] Dr. David Brown Eosinophils/100 WBC (Bld) 2.2 % Normal 0.9-7.0 [facility] Comment on above: Performed By: #### C BC #### [facility] [address] [place] [address] Dr. David Brown Erythrocyte distribution width (RBC) [Ratio] 12.7 % Normal 11.0-15.0 [facility] Comment on above: Performed By: #### C BC #### [facility] [address] [place] [address] Dr. David Brown Hematocrit (Bld) [Volume fraction] 43.6 % Normal 42.0-54.0 [facility] Comment on above: Performed By: #### C BC #### [facility] [address] [place] [address] Dr. David Brown Hemoglobin (Bld) [Mass/Vol] 14.6 g/dL Normal 14.0-18.0 [facility] Comment on above: Performed By: #### C BC #### [facility] [address] [place] [address] Dr. David Brown IG # 0.03 10e3/ul Normal 0.00-0.03 [facility] Comment on above: Performed By: #### C BC #### [facility] [address] [place] [address] Dr. David Brown IG % 0.3 % Normal 0.0-0.5 [facility] Comment on above: Performed By: #### C BC #### [facility] [address] [place] [address] Dr. David Brown LYMPH # 3.6 103/ul Normal 1.2-3.8 [facility] Comment on above: Performed By: #### C BC #### [facility] [address] [place] [address] Dr. David Brown Lymphocytes/100 WBC (Bld) 37.8 % Normal 20.5-60.0 [facility] Comment on above: Performed By: #### C BC #### [facility] [address] [place] [address] Dr. David Brown MANUAL DIFF REQ NO Normal [facility] Comment on above: Performed By: #### C BC #### [facility] [address] [place] [address] Dr. David Brown MCH (RBC) [Entitic mass] 28.3 pg Normal 25.9-34.0 [facility] Comment on above: Performed By: #### C BC #### [facility] [address] [place] [address] Dr. David Brown MCHC (RBC) [Mass/Vol] 33.5 g/dL Normal 29.9-35.2 [facility] Comment on above: Performed By: #### C BC #### [facility] [id number] David Brown MCV (RBC) [Entitic vol] 84.7 fL Normal 80.0-94.0 [facility] Comment on above: Performed By: #### C BC #### [facility] [id number] David Brown MONO # 0.9 103/ul Critically high 0.3-0.8 [facility] Comment on above: Performed By: #### C BC #### [facility] [id number] David Brown Monocytes/100 WBC (Bld) 9.6 % Normal 1.7-12.0 [facility] Comment on above: Performed By: #### C BC #### [facility] [address] [place] [address] [address] David Brown NEUT # 4.8 103/ul Normal 1.4-6.5 [facility] Comment on above: Performed By: #### C BC #### [facility] [address] [place] [address] [address] David Brown Neutrophils/100 WBC (Bld) 49.5 % Normal 43.0-75.0 [facility] Comment on above: Performed By: #### C BC #### [facility] [id number] David Brown Platelet mean volume (Bld) [Entitic vol] 12.0 fL Normal 9.5-13.5 [facility] Comment on above: Performed By: #### C BC #### [facility] [address] [place] [address] [address] David Brown PLT 254 103/ul Normal 150-450 [facility] Comment on above: Performed By: #### C BC #### [facility] [id number] David Brown RBC 5.15 106/ul Normal 4.70-6.10 [facility] Comment on above: Performed By: #### C BC #### [facility] [id number] David Brown WBC 9.6 103/ul Normal 4.0-11.0 [facility] Comment on above: Performed By: #### C BC #### [facility] [address] [place] [address] Dr. David Brown GLYCOHEMOGLOBIN A1Con 2022 ADA RECOMMENDATION SEE BELOW Normal [facility] Comment on above: Result Comment: ADA RECOMMENDED LIMIT 4.0 - 6.0 ADA THERAPEUTIC TARGET < 7.0 ACTION SUGGESTED > 7.0 Performed By: #### A 1C #### [facility] [address] [place] [address] Dr. David Brown Glucose [Mass/Vol] 212 mg/dL Normal [facility] Comment on above: Performed By: #### A 1C #### [facility] [address] [place] [address] Dr. David Brown HbA1c (Bld) [Mass fraction] 9.0 % Critically high 4.5-6.2 [facility] Comment on above: Performed By: #### A 1C #### [facility] [address] [place] [address] Dr. David Brown MICROALBUMIN, RAND URon 03- mALB 5.5 mg/L Normal <=30.0 [facility] Comment on above: Performed By: #### M ALBR #### [facility] [address] [place] [address] Dr. David Brown GLYCOHEMOGLOBIN A1Con 2021 ADA RECOMMENDATION SEE BELOW Normal [facility] Comment on above: Result Comment: ADA RECOMMENDED LIMIT 4.0 - 6.0 ADA THERAPEUTIC TARGET < 7.0 ACTION SUGGESTED > 7.0 Performed By: #### A 1C #### [facility] [address] [place] [address] Dr. David Brown Glucose [Mass/Vol] 194 mg/dL Normal [facility] Comment on above: Performed By: #### A 1C #### [facility] [address] [place] [address] Dr. David Brown HbA1c (Bld) [Mass fraction] 8.4 % Critically high 4.5-6.2 [facility] Comment on above: Performed By: #### A 1C #### [facility] [address] [address] [address] David Brown Vital Signs Date Time Vital Sign Value Performing Clinician Facility 07-18-2025 13:28-0400 Body height 160.02 cm Semaj Ball DO Work Phone: [facility] 07-18-2025 13:28-0400 Body mass index (BMI) [Ratio] 47.3 kg/m2 Semaj Ball DO Work Phone: [facility] 07-18-2025 13:28-0400 Body weight 121.16 kg Semaj Ball DO Work Phone: [facility] 07-18-2025 13:28-0400 Diastolic blood pressure 80 mm[Hg] Semaj Ball DO Work Phone: [facility] 07-18-2025 13:28-0400 Heart rate 120 /min Semaj Ball DO Work Phone: [facility] 07-18-2025 13:28-0400 Respiratory rate 16 /min Semaj Ball DO Work Phone: [facility] 07-18-2025 13:28-0400 Systolic blood pressure 130 mm[Hg] Semaj Ball DO Work Phone: [facility] 04-12-2025 11:04-0400 Body height 160.02 cm [facility] 04-12-2025 11:04-0400 Body mass index (BMI) [Ratio] 44.9 kg/m2 [facility] 04-12-2025 11:04-0400 Body weight 115.21 kg [facility] 04-12-2025 11:04-0400 Diastolic blood pressure 89 mm[Hg] [facility] 04-12-2025 11:04-0400 Heart rate 116 /min [facility] 04-12-2025 11:04-0400 Respiratory rate 20 /min [facility] 04-12-2025 11:04-0400 Systolic blood pressure 139 mm[Hg] [facility] 04-05-2025 13:05-0400 Body height 165.1 cm Rodrick Dolce DPM FACFAS Work Phone: [facility] 04-05-2025 13:05-0400 Body mass index (BMI) [Ratio] 39.94 kg/m2 Rodrick Dolce DPM FACFAS Work Phone: [facility] 04-05-2025 13:05-0400 Body weight 108.86 kg Rodrick Dolce DPM FACFAS Work Phone: [facility] 04-05-2025 13:05-0400 Diastolic blood pressure 75 mm[Hg] Rodrick Dolce DPM FACFAS Work Phone: [facility] 04-05-2025 13:05-0400 Heart rate 73 /min Rodrick Dolce DPM FACFAS Work Phone: [facility] 04-05-2025 13:05-0400 Systolic blood pressure 130 mm[Hg] Rodrick Dolce DPM FACFAS Work Phone: [facility] 10-19-2024 14:35-0500 Body height 165.1 cm Rodrick Dolce DPM FACFAS Work Phone: [facility] 10-19-2024 14:35-0500 Body mass index (BMI) [Ratio] 39.94 kg/m2 Rodrick Dolce DPM FACFAS Work Phone: [facility] 10-19-2024 14:35-0500 Body weight 108.86 kg Rodrick Dolce DPM FACFAS Work Phone: [facility] 10-19-2024 14:35-0500 Diastolic blood pressure 75 mm[Hg] Rodrick Dolce DPM FACFAS Work Phone: [facility] 10-19-2024 14:35-0500 Heart rate 72 /min Rodrick Dolce DPM FACFAS Work Phone: [facility] 10-19-2024 14:35-0500 Systolic blood pressure 130 mm[Hg] Rodrick Dolce DPM FACFAS Work Phone: [facility] 10-04-2024 08:46-0500 Body height 160 cm Orly Curt DO Work Phone: [facility] 10-04-2024 08:46-0500 Body mass index (BMI) [Ratio] 42.51 kg/m2 Orly Curt DO Work Phone: [facility] 10-04-2024 08:46-0500 Body weight 108.86 kg Orly Curt DO Work Phone: [facility] 10-04-2024 08:46-0500 Diastolic blood pressure 76 mm[Hg] Orly Curt DO Work Phone: [facility] 10-04-2024 08:46-0500 Heart rate 99 /min Orly Curt DO Work Phone: [facility] 10-04-2024 08:46-0500 SaO2% (BldA) [Mass fraction] 91 % Orly Curt DO Work Phone: [facility] 10-04-2024 08:46-0500 Systolic blood pressure 132 mm[Hg] Orly Curt DO Work Phone: [facility] 08-03-2024 14:01-0400 Body height 165.1 cm Rodrick Dolce DPM FACFAS Work Phone: [facility] 08-03-2024 14:01-0400 Body mass index (BMI) [Ratio] 43.43 kg/m2 Rodrick Dolce DPM FACFAS Work Phone: [facility] 08-03-2024 14:01-0400 Body weight 118.39 kg Rodrick Dolce DPM FACFAS Work Phone: [facility] 08-03-2024 14:01-0400 Diastolic blood pressure 80 mm[Hg] Rodrick Dolce DPM FACFAS Work Phone: [facility] 08-03-2024 14:01-0400 Heart rate 85 /min Rodrick Dolce DPM FACFAS Work Phone: [facility] 08-03-2024 14:01-0400 Systolic blood pressure 130 mm[Hg] Rodrick Donohue DPM FACFAS Work Phone: [facility] 07-28-2023 09:30-0400 Body height 160.02 cm Semaj Ball Other [facility] Other 07-28-2023 09:30-0400 Body mass index (BMI) [Ratio] 47.33 kg/m2 Semaj Ball Other [facility] Other 07-28-2023 09:30-0400 Body weight 121.2 kg Semaj Ball Other [facility] Other 07-28-2023 09:30-0400 Diastolic blood pressure 87 mm[Hg] Semaj Ball Other [facility] Other 07-28-2023 09:30-0400 Respiratory rate 12 /min Semaj Ball Other [facility] Other 07-28-2023 09:30-0400 Systolic blood pressure 132 mm[Hg] Semaj Ball Other [facility] Other 01-25-2023 12:30-0400 Body height 160.02 cm Semaj Ball Other [facility] Other 01-25-2023 12:30-0400 Body mass index (BMI) [Ratio] 47.75 kg/m2 Semaj Ball Other [facility] Other 01-25-2023 12:30-0400 Body weight 122.29 kg Semaj Ball Other [facility] Other 01-25-2023 12:30-0400 Diastolic blood pressure 82 mm[Hg] Semaj Ball Other [facility] Other 01-25-2023 12:30-0400 Respiratory rate 12 /min Semaj Avery Other [facility] Other 01-25-2023 12:30-0400 Systolic blood pressure 130 mm[Hg] Semaj Avery Other [facility] Other Encounters Encounter Date Encounter Type Care Provider Facility Start: 07-18-2025 End: 07-18-2025 ambulatory Semaj Avery DO Work Phone: [facility] Work Phone: Start: 07-18-2025 End: 07-18-2025 Patient encounter procedure Semaj Avery DO -[facility] Work Phone: Start: 06-27-2025 Non-patient / Non-visit Seamj Trinidad onofre CARREON -[facility] [employer] Work Phone: Start: 04-12-2025 End: 04-12-2025 ambulatory [facility] Work Phone: Start: 04-12-2025 End: 04-12-2025 Patient encounter procedure [facility] Phys[facility] Work Phone: Start: 04-05-2025 End: 04-05-2025 Bamboo [...] Bamboo flowsheet Orly Curt DO Work Phone: [employer] [address] Start: 10-04-2024 End: 10-04-2024 Bamboo flowsheet Orly Curt DO Work Phone: [facility] [address] Start: 10-04-2024 End: 10-04-2024 Office outpatient new 45 minutes Orly Curt DO Work Phone: [facility] [address] Comment on above: LUÍS (obstructive [...] and manag ement of inpatient DELGADO GUIDO [facility] Start: 01-01-2024 End: 01-06-2024 Evaluation and management of inpatient SEMAJ AVERY [facility] Start: 11-02-2023 End: 11-02-2023 ambulatory Semaj Avery Other [facility] Other Start: 11-02-2023 Telephone encounter Semaj Dawkins [facility] Start: 10-29-2023 End: 10-29-2023 ambulatory Semaj Avery Other [facility] Other Start: 10-29-2023 Telephone encounter Semaj Dawkins [facility] Start: 10-27-2023 End: 10-27-2023 ambulatory Semaj Avery Other [facility] Other Start: 10-27-2023 Telephone encounter Semaj MILES [facility] Start: 10-05-2023 End: 10-05-2023 ambulatory Semaj Avery Other [facility] Other Start: 10-05-2023 Telephone encounter Semaj MILES [facility] Start: 08-09-2023 End: 08-09-2023 ambulatory Edi Henriquez Facility:[facility] Start: 07-28-2023 End: 07-28-2023 ambulatory Semaj Avery Other [facility] Other Start: 07-28-2023 Office outpatient vi sit [address] [facility] Start: 07-28-2023 Telephone encounter Semaj Avery GINGER G [facility] Start: 02-04-2023 End: 02-04-2023 ambulatory Semaj Avery Other [facility] Other Start: 02-04-2023 Telephone encounter Semaj MILES G [facility] Start: 02-03-2023 Telephone encounter Semaj MILES Mariza [facility] Start: 02-03-2023 End: 02-04-[address] SEMAJ AVERY [facility] Other Start: 01-25-2023 End: 01-25-2023 ambulatory Semaj Avery Other [facility] Other Start: 01-25-2023 Encounter for genera l adult medical examination without abnormal findings Semaj Avery [facility] Start: 01-25-2023 Initial preventive exam Semaj Bal l [facility] Start: 01-25-2023 Patient encounter procedure Semaj Avery [facility] Start: 08-07-2022 End: 08-08-[address] SEMAJ AVERY Facility:[facility]1 Procedures Date Procedure Procedure Detail Performing Clinician Start: 02-03-[address] ROOT IN BLUE MOUNDS Comment on above: Performed By: #### P [facility] #### [facility] [address] [place] [address] Dr. David Brown Plan of Treatment Date Care Activity Detail Author Start: 07-09-2025 Influenza vaccination Influenz a Vaccine (Season Ended) [facility] Start: 06-14-2025 End: 06-14-2025 Patient encounter procedure 06/14/2025 1:00 PM EDT Procedure Visit [facility] [address] [place] [phone] Dolce, Rodrick R, DPM FACFAS [address] [place] [address] [facility] Start: 04-05-2025 End: 04-05-2025 Patient encounter procedure 04/05/2025 1:00 PM EDT Office Visit [facility] [address] [place] [phone] Dolce, Rodrick R, DPM FACFAS [address] [place] [address] Arrived [facility] Comment on above: Arrived Start: 01-11-2025 End: 01-11-2025 Patient encounter procedure 01/11/2025 2:30 PM EST Office Visit [facility] [address] [place] [phone] Dolce, Rodrick R, DPM FACFAS [address] [place] [address] Arrived [facility] Comment on above: Arrived Start: 12-28-2024 End: 12-28-2024 Patient encounter procedure 12/28/2024 2:30 PM EST Office Visit [facility] [address] [place] [address] Dolce, Rodrick R, DPM FACFAS [address] [facility] [place] [address] [facility] Start: 10-19-2024 End: 10-19-2024 Patient encounter procedure 10/19/2024 2:30 PM EST Office Visit [facility] [address] [place] [phone] Dolce, Rodrick R, DPM FACFAS [address] [place] [address] Arrived [facility] Comment on above: Arrived Start: 10-12-2024 End: 10-12-2024 Patient encounter procedure 10/12/2024 2:50 PM EST Office Visit [facility] [address] [place] [phone] Rodrick Donohue R, DPM FACFAS [address] [place] [address] [facility] Start: 10-04-2024 End: 10-04-2024 Patient encounter procedure 10/04/2024 9:00 AM EST Office Visit [facility] [address] [place] [phone] Orly Herring, [address] [place] [address] Arrived [facility] Comment on above: Arrived Start: 08-03-2024 End: 08-03-2024 Patient encounter procedure 08/03/2024 2:00 PM EDT Office Visit [facility] [address] [place] [phone] Rodrick Donohue, DPM FACFAS [address] [place] [address] Arrived [facility] Comment on above: Arrived Start: 07-09-2024 Influenza vaccination Influenza Vacc ine (#1) [facility] Start: 1970 Screening for malign ant neoplasm of colon [facility] Comprehensive metabo lic 2000 panel - [facility] or [facility] Immunizations Immunization Date Immunization Notes Care Provider Fa cility 09-04-2022 influenza, injectabl e, quadrivalent, contains preservative Semaj Avery Other [facility] Other 09-04-2022 COVID-19 Pfizer (bivalent) Semaj Avery Other [facility] 09-04-2022 COVID-19 Pfizer (Pediatric) Semaj Avery Other [facility] 09-04-2022 influenza virus vaccine, split virus (incl. purified surface antigen) Semaj Avery Other [facility] [employer] Other 09-04-2022 influenza, injectabl e, quadrivalent, preservative free [facility] 09-04-2022 influenza virus vaccine, unspecified formulation Rodrick Donohue DPM FACFAS Work Phone: [facility] 04-18-2022 zoster vaccine recombinant Semaj Avery Other [facility] 04-18-2022 zoster vaccine, live Benjami n Bennie Other [facility] 02-13-2022 COVID-19 Vaccine Pfi zer - Documentation Purposes Only Semaj Avery Other [facility] 02-13-2022 Prevnar 20 Semaj Avery Other [facility] 02-13-2022 zoster vaccine recombinant Semaj Avery Other [facility] 02-13-2022 zoster vaccine, live Benjami n Bennie Other [facility] 09-30-2021 COVID-19 Vaccine Pfi zer - Documentation Purposes Only Semaj Avery Other [facility] 02-11-2021 COVID-19 Vaccine Pfi zer - Documentation Purposes Only Semaj Avery Other [facility] 01-20-2021 COVID-19 Vaccine Pfi zer - Documentation Purposes Only Semaj Avery Other [facility] 07-22-2020 influenza virus vaccine, split virus (incl. purified surface antigen) Semaj Avery Other [facility] [employer] Other 07-22-2020 influenza virus vaccine, unspecified formulation [facility] 09-13-2017 tetanus and diphther ia toxoids, adsorbed, preservative free, for adult use (5 Lf of tetanus toxoid and 2 Lf of diphtheria toxoid) Semaj Avery Other [facility] Payers Date Payer Category Payer Medicare AETNA MEDICARE A DVANTAGE AETNA MEDICARE REPLACEMENT [id number] 2024-Present [address] [place] [address] [id number] 2024 Medicare [id number] 2023 Self-pay 2022 Medicaid [id number] 1969 Unknown [id number] 1969 Unknown [id number] 1969 Unknown [id number] 1969 Unknown [id number] 1969 Unknown [id number] [id number] 1969 Unknown [id number] [id number] 1969 Unknown [id number] [id number] 1969 Unknown [id number] [id number] 1969 Unknown [id number] 1969 Unknown [id number] 1960 Medicaid [id number] 1960 Medicare [id number] Unknown [id number] Social History Date Type Detail Facility Start: 08-03-2024 End: 01-11-2025 Sex Assigned At [facility] [employer] Other Start: 04-08-2023 End: 02-25-2024 Tobacco smoking status NHIS Never smoked tobacco [facility] Start: 04-08-2023 Tobacco use and exposure Smokeless tobacco non-user [facility] Start: 10-04-2024 End: 04-05-2025 Alcoholic beverage intake Lifetime non-drinker (finding) [facility] Start: 08-03-2024 End: 01-11-2025 History of Social function [facility] Start: 04-05-2023 Alcohol Comment Hasn't drank a lcohol in the past 12 months [facility] Start: 1970 Sex assigned at Not on file [facility] Start: 10-04-2024 Tobacco use and exposure User of smokeless tobacco [facility] Start: 04-12-2025 Sex Male (finding) [facility] Start: 1970 Sex Assigned At Male F [facility] Medical Equipment Procedure Code Equipment Code Equipment [...] BEREKET FACFAS - 04/05/2025 1:00 PM EDTRodrick Donohue, JOSÉ MIGUELCharles FACFAS - 10/19/2024 2:30 PM Misha Herring DO - 10/04/2024 9:00 AM Eladia Donohue, DPCharles FACFAS - 08/03/2024 2:00 PM EDT Note Date & Type Note Facility 04-05-2025 History of Presen t illness Narrative Images from the original note were not included. patient: Vitaly oDbson : 1970 PCP: Semaj Avery DO SUBJECTIVE [...] Ankylosing spondylitis Diabetes ([facility] [place] [facility]/H[facility]) Hypertension ([facility] [place] [facility]) Pulmonary embolism Subdural hematoma ([facility] [place] [facility]) Medications: Current Outpatient Medications: apixaban (Eliquis) [...] subungual debris. They were painful to palpation [id number] on the right 88963 on the left. VASC: DP /PT were nonpalpable bilateral. Capillary refill time < 3 seconds Digits 1-5 bilateral NEURO: [place] Rafaela 5.07 monofilament was diminished B/L. Vibratory sensation was diminished b/l. Mild peripheral neuropathy noted in a stocking-glove orientation Musculoskeletal: Muscle strength was +5 over 5 all intrinsic and extrinsic muscles tested. Radiographs: AP/MO/LAT: Diagnostic ultrasound: ASSESSMENT 1. Onychomycosis 2. Type II diabetes mellitus with neurological manifestations ([facility] [place] [facility]) 3. Pain in right toe(s) 4. Pain [...] have their nails trimmed only by a bushel girl to reduce the risk of injury or [...] intervention. BEREKET Medina documented in this encounter [facility] 10-19-2024 History of Presen t illness Narrative [...] subungual debris. They were painful to palpation 06602 on the right 92766 on the left. VASC: DP /PT were nonpalpable bilateral. Capillary refill time < 3 seconds Digits 1-5 bilateral NEURO: [place] 5.07 monofilament was diminished B/L. Vibratory [...] have their nails trimmed only by a bushel girl to reduce the risk of injury or [...] intervention. BEREKET Medina documented in this encounter [facility] 10-04-2024 History of Presen t illness Narrative [...] not get comfortable enough to sleep. His [place] Sleepiness scale is a 7. He does have underlying obesity and needs to be more aggressive with diet exercise weight loss. Plan PSG was reviewed with him BiPAP titration was reviewed with him [place] Sleepiness scale is 7 Compliance data was reviewed and he is not compliant. He was counseled on need to be compliant and ways to do that. The patient was counseled on the need for aggressive diet, exercise, and weight loss. The patient was counseled on proper sleep hygiene and adequate hours of sleep. The patient was counseled on the risks of stroke, MD, and sudden with LUÍS, along with the [...] clinic: 2 months documented in this encounter [facility] 08-03-2024 History of Presen t illness Narrative [...] Diagnosis Date Diabetes ([facility] [place] [facility]) Medications: Current Outpatient Medications: apixaban (Eliquis) [...] subungual debris. They were painful to palpation 08512 on the right 43665 on the left. VASC: DP /PT were nonpalpable bilateral. Capillary refill time < 3 seconds Digits 1-5 bilateral NEURO: [place] 5.07 monofilament was diminished B/L. Vibratory [...] 10. BEREKET Medina documented in this encounter [facility] 11-02-2023 Evaluation note Encounter Date Diagnosis Assessment Notes Oct, Ankylosing spondylitis of thoracolumbar region (ICD-10 - M45.5) [facility] Other 12-22-2023 Evaluation note* Encounter Date Diagnosis Assessment Notes Treatment Notes Treatment Clinical Notes Oct, Type 2 diabetes mellitus with hyperglycemia, without long-term current use of insulin (ICD-10 - E11.65) [facility] Other 11-28-2023 Evaluation note* Encounter Date Diagnosis Assessment Notes Treatment Notes Treatment Clinical Notes Sep, Type 2 diabetes mellitus with hyperglycemia, without long-term current use of insulin (ICD-10 - E11.65) [facility] Other 09-20-2023 Evaluation note* Encounter Date Diagnosis [...] lidocaine patches and muscle relaxants at HS [facility] Other 09-20-2023 NoteProcedure(s): XR cervical spine 2-3V [facility] Other 09-20-2023 NoteProcedure: XR cervical spine 2-3V[facility] Other 09-20-2023 NoteProcedure(s): XR thoracic spine 2V[facility] Other 09-20-2023 NoteProcedure: XR thoracic spine 2V[facility] Other 09-20-2023 NoteProcedure(s): XR lumbar spine 2-3V[facility] Other 09-20-2023 NoteProcedure: XR lumbar spine 2-3[employer] Other 03-30-2023 Evaluation note* Encounter Date Diagnosis Assessment Notes Treatment Notes Treatment Clinical Notes Jan, Mixed hyperlipidemia (ICD-10 - E78.2) [facility] Other 03-29-2023 Evaluation note* Encounter Date Diagnosis Assessment Notes Treatment Notes Treatment Clinical Notes Jan, Type 2 diabetes mellitus with hyperglycemia, without long-term current use of insulin (ICD-10 - E11.65) [facility] Other 03-20-2023 Evaluation note* Encounter Date Diagnosis [...] reviewed and amended by provider signed below. [facility] Other Evaluation noteNo InformationNosaint joseph [facility] [employer] Other Evaluation note* Diagnosis LUÍS (obstructive sleep apnea)- Primary Obstructive sleep apnea (adult) (pediatric) Hypoxia Hypoxemia Hypersomnia Hypersomnia, unspecified Snoring Other dyspnea and respiratory abnormality documented in this encounter [facility] Healthcare[facility] note* Diagnosis Onychomycosis- Primary Dermatophytosis of nail Type II diabetes mellitus with neurological manifestations (CMS/HCC) Type II or unspecified type diabetes mellitus with neurological manifestations, not stated as uncontrolled Pain in right toe(s) Pain in left toe(s) documented in this encounter [facility] Healthcare[facility] note* Diagnosis Onychomycosis- Primary Dermatophytosis of nail Type II diabetes mellitus with neurological manifestations (CMS/HCC) Type II or unspecified type diabetes mellitus with neurological manifestations, not stated as uncontrolled Pain in right toe(s) Pain in left toe(s) documented in this encounter [facility] Healthcare[facility] note* Diagnosis Onychomycosis- Primary Dermatophytosis of nail Type II diabetes mellitus with neurological manifestations (CMS/HCC) Type II or unspecified type diabetes mellitus with neurological manifestations, not stated as uncontrolled Pain in right toe(s) Pain in left toe(s) documented in this encounter [facility] Healthcare[facility] note* Diagnosis Onset Date Resolution [...] h hyperglycemia acute April 12, 2025 10:53am [facility] Work Phone: Evaluation note* Diagnosis Onset Date [...] it, subsequent noneactive July 18, 2025 1:20pm [facility] Work Phone: History general Narrative - Reported* [...] HEM ATOMA Hospitalization History SEE SURGICAL HX [facility] [employer] Other Reason for referral (narrative)* Reason Referral for ankylos ing spondylitis Diagnosis 1 Ankylosing spondylit is of thoracolumbar region (M45.5) Diagnosis 2 Scoliosis (and kypho scoliosis), idiopathic (M41.20) Diagnosis 3 Cervical spondylosis (M47.812) Referral Organization [facility] simental Referring Provider First Name [...] medical treatment. Clinical Notes Include XR reports [facility] Other Reason for referral (narrative)No reason for referral information availableK[facility] Work Phone: Summary Purpose Family History Relationship [...] and content) DATE CREATED AUTHOR 02/14/2023 [facility] DATE CREATED AUTHOR AUTHOR'S ORGANIZ ATION 08/18/2023 [facility] DATE CREATED AUTHOR AUTHOR'S ORGANIZ ATION 01/13/2024 [facility] DATE CREATED AUTHOR AUTHOR'S ORGANIZ ATION 04/07/2025 [facility] Special[facility] EPIC Care Teams (unrecognized [...] July 18, 2025 End: July 18, 2025 Commutator Undercutter Relationship Specialty Start Date End Date Semaj Avery MD [address] [id number] PCP - General Internal Medicine 04/08/23 Commutator Undercutter Relationship Specialty Start Date End Date Semaj Avery MD [address] [place] [phone] PCP - General Internal Medicine 04/08/23 Commutator Undercutter Relationship Specialty Start Date End Date Semaj Avery MD [address] [place] [address] PCP - General Internal Medicine 04/08/23 Commutator Undercutter Relationship Specialty Start Date End Date Semaj Avery MD [address] [place] [phone] PCP - General Internal Medicine 04/08/23 Commutator Undercutter Relationship Specialty Start Date End Date Semaj Avery DO [address] [facility] [place] [id number] PCP - General Internal Medicine 04/08/23 Commutator Undercutter Relationship Specialty Start Date End Date Semaj Avery DO [address] [facility] [place] [id number] PCP - General Internal Medicine 04/08/23 Team [...] July 18, 2025 End: July 18, 2025 Semja Avery , DO Attending Provider Active Sta [...] BE BASED ON THE PRIMARY CLINICAL RECORDS. [employer] provides no warranty or guarantee of the accuracy or completeness of information in this document.
[2025-08-02 11:33] LABS: Microalbum Creatinine Ratio Ur 33.8 mg/g (0.0-29.9)
[2025-08-02 11:51] LABS: Cholesterol 126 mg/dL (<=200); HDL Cholesterol 19 mg/dL (40-60); Triglycerides 186 mg/dL (<=150); VLDL CHOLESTEROL 37.2 mg/dL
== END 2025-08-02 10:49 | disposition home or self-care (01) ==
LOC: LAB 10:52
PROVIDERS: PCP Internal Medicine; Visit Provider Internal Medicine
DX: D64.9 Anemia, unspecified (principal); E11.65 Type 2 diabetes mellitus with hyperglycemia; I10 Essential (primary) hypertension; M45.9 Ankylosing spondylitis of unspecified sites in spine; M10.09 Idiopathic gout, multiple sites; Z79.899 Other long term (current) drug therapy; E78.00 Pure hypercholesterolemia, unspecified; Z12.5 Encounter for screening for malignant neoplasm of prostate
CPT/HCPCS: 36415; 80053; 80061; 82043; 82570; 83036; 85025; 85652; G0103